=== PATIENT | female | born 1960 | race Caucasian/White ===

== ENCOUNTER → 2016-06-24 | Outpatient (CLI) | payer OTHER ==
[~2016-06-24] MED LIST: CYAN100020 PO; LEVO75TA5 PO
[2016-06-24 12:50] LABS: BASO % 0.6 %; BASO ABS # 0.02 K/uL (0-0.2); COMPLETE YES; HEMATOCRIT 35.6 % (37-47); IG% 0.3 %; LYMPH % 36.5 %; LYMPH ABS # 1.28 K/uL (1.2-3.4); MEAN CELL VOLUME 93.4 fL (80-100); MEAN CORPUSCULAR HEMOGLOBIN 33.1 pg (25-34); MEAN CORPUSCULAR HGB CONC 35.4 g/dl (32-36); MEAN PLATELET VOLUME 9.3 fL (7.4-10.4); MONO % 6.3 %; NEUT % 56.3 %; PLATELET COUNT 124 K/uL (130-400); RED BLOOD COUNT 3.81 M/uL (4.2-5.4); WHITE BLOOD COUNT 3.51 K/uL (4.8-10.8)
[2016-06-24 13:07] LABS: ALT/SGPT 26 U/L (12-78); BLOOD UREA NITROGEN 10 mg/dl (7-18); BUN/CREATININE RATIO 16.9 (10-20); CALCIUM 9.3 mg/dl (8.5-10.1); CARBON DIOXIDE 28 mmol/L (21-32); CHLORIDE 103 mmol/L (98-107); CHOLESTEROL 215 mg/dl (0-200); CREATININE 0.59 mg/dl (0.60-1.20); GLUCOSE 97 mg/dl (70-99); POTASSIUM 4.4 mmol/L (3.5-5.1); SODIUM 140 mmol/L (136-145)
[2016-06-24 13:17] LABS: ALB/GLOB RATIO 0.9 (0.9-2); ALKALINE PHOSPHATASE 119 U/L (45-117); AST/SGOT 13 U/L (15-37); CHOLESTEROL/HDL RATIO 4.2; HDL CHOLESTEROL 51 mg/dl; LDL CHOLESTEROL CALCULATED 133 mg/dl; TRIGLYCERIDES 155 mg/dl (0-150); VERY LOW DENSITY LIPOPROT CALC 31 mg/dl
== END | disposition home or self-care (01) ==
LOC: C.LABBFT 09:58
PROVIDERS: ATTEND Internal Medicine
DX: Z11.59 Encounter for screening for other viral diseases (principal); Z00.00 Encounter for general adult medical examination without abnormal findings; E03.9 Hypothyroidism, unspecified; C71.9 Malignant neoplasm of brain, unspecified; R53.83 Other fatigue; Z51.81 Encounter for therapeutic drug level monitoring

== ENCOUNTER → 2016-07-17 | Outpatient (CLI) | payer OTHER | END | disposition home or self-care (01) | LOC: C.PATHSPEC 17:23 | PROVIDERS: ATTEND Plastic Surgery | DX: L91.8 Other hypertrophic disorders of the skin (principal) ==

== ENCOUNTER → 2016-09-11 | Outpatient (CLI) | payer OTHER ==
--- NOTE | 2016-09-12 13:08 | EEG Procedure Note ---
EEG Procedure Note Date of Service September 11, 2016. Start / End Times Start Time: 2:51 PM End Time: 3:14 PM Referring Physician Claudia Gutierrez History This is a 56-year-old female with a history of seizures and brain surgery in 2000. EEG for further evaluation of seizures. Pertinent home medications: Dilantin Description This is a 21 electrode EEG with a single channel dedicated to limited EKG. The electrodes were placed in accordance with the International 10-20 system. At the start of the recording the patient was in an awake state. Background was well organized and composed of mixed alpha and beta frequencies with continuous right hemispheric theta slowing maximal in the right frontotemporal area. There was a symmetric well-formed moderate amplitude 9-10 Hz posterior dominant rhythm that was reactive to eye opening and closure. Hyperventilation was not done. Intermittent photic stimulation at various frequencies produced no abnormalities. Sleep was indicated by vertex waves and symmetric sleep spindles. Interpretation This is an abnormal routine EEG secondary to continuous right hemispheric slowing maximal in the right temporal area. There was no electrographic seizures or epileptiform discharges. Clinical Correlation This EEG indicates a structural or functional cerebral dysfunction in the right hemisphere.
== END | disposition home or self-care (01) ==
LOC: C.NEUR 14:20
PROVIDERS: ATTEND Psychiatry & Neurology Neurology
DX: R56.9 Unspecified convulsions (principal)

== ENCOUNTER → 2016-10-02 | Outpatient (CLI) | payer OTHER | END | disposition home or self-care (01) | LOC: C.LABBFT 11:40 | PROVIDERS: ATTEND Psychiatry & Neurology Neurology | DX: R41.3 Other amnesia (principal); R26.89 Other abnormalities of gait and mobility ==

== ENCOUNTER → 2016-12-01 | Outpatient (CLI) | payer OTHER ==
--- NOTE | 2016-12-04 17:27 | EEG Procedure Note ---
EEG Procedure Note Date of Service Dec 01, 2016. Start / End Times Start Time: 1:06 PM End Time: 1:26 PM Referring Physician Claudia Gutierrez History This is a 56-year-old female with history of right temporal lobe glioma removal. EEG for further management of possible seizures and seizure medication management. Description This is a 21 electrode EEG with a single channel dedicated to limited EKG. The electrodes were placed in accordance with the International 10-20 system. At the start of the recording the patient was in an awake state. Background was well organized and composed of mixed alpha and beta frequencies. There was continuous mild slowing over the right hemisphere. There was a symmetric well- formed moderate amplitude 9-10 Hz posterior dominant rhythm that was reactive to eye opening and closure. Hyperventilation was not done. Intermittent photic stimulation at various frequencies produced no abnormalities. Drowsiness was indicated by loss of muscle artifact and slowing of the background rhythm. There was no sleep transients. Interpretation This is an abnormal routine EEG secondary to mild continuous slowing of the right hemisphere. There was no electrographic seizures or epileptiform discharges. Clinical Correlation This EEG indicates a structural or functional cerebral dysfunction and the right hemisphere. Would be consistent with the patient's known history of right temporal lobe glioma resection.
== END | disposition home or self-care (01) ==
LOC: C.NEUR 12:47
PROVIDERS: ATTEND Psychiatry & Neurology Neurology
DX: R56.9 Unspecified convulsions (principal)

== ENCOUNTER → 2017-02-10 | Day surgery (SDC) | payer OTHER ==
[2017-01-29 13:29] VITALS: BMI 42.0
[~2017-02-10] VITALS: Ht 152.4 cm; Wt 97.3 kg
[~2017-02-10] MED LIST changes: +PROPOFOL IV EMULSION 10 MG/ML 20 ML VIAL IV ONE
[2017-02-10 09:25] VITALS: Ht 152.4 cm; Wt 97.3 kg
--- NOTE | 2017-02-10 09:32 | Endo History and Physical ---
History & Physical Date of Service: Feb 10, 2017. Chief Complaint: Screening Referring Physician: Aleshia Morton History of Present Illness 56 yo CF who presents for screening colonoscopy. Past Surgical History Hx Cardiac Surgery: No Hx Internal Defibrillator: No Hx Pacemaker: No Hx Abdominal Surgery: Yes ( C SECTION) Hx of Implantable Prosthesis: No Hx Post-Op Nausea and Vomiting: No Hx Cancer Surgery: No Hx Thoracic Surgery: No Hx Orthopedic: No Hx Urinary Tract Surgery: No Family History None Social History Smoking Status: Former Smoker Hx Substance Use: No Hx Alcohol Use: Yes (OCC SOCIAL) Allergies Coded Allergies: Sulfa Antibiotics (Verified Allergy, Intermediate, ITCHING, BURNING, ) Aspirin (Verified Allergy, Unknown, TO AVOID -HX BRAIN TUMOR NOT TO TAKE, 01/29/17) Current Medications Reported Home Medications Medications Dose Route/Sig Max Daily Dose Days Date Category Levothyroxine Sodium 75 Mcg Tab 1 Tab PO QAM 90 01/29/17 Reported Vitamin B12 (Cyanocobalamin) 1,000 Mcg Tab 1,000 Mcg PO QAM 01/29/17 Reported Vital Signs Weight (Kilograms): 97.27 Height (Feet): 5 Height (Inches): 0 Physical Exam General Appearance: WD/WN, no apparent distress Respiratory/Chest: Auscultation: breath sounds normal Cardiovascular: Heart Auscultation: RRR Abdomen: Bowel Sounds: normal Inspection & Palpation: soft, non-distended, no tenderness, guarding & rebound Assessment and Plan Assessment: 56 yo CF who presents for screening colonoscopy. Plan: Proceed with colonoscopy.
--- NOTE | 2017-02-10 10:31 | GI REPORT ---
Procedure Date: 02/10/2017 10:08 AM Procedure: Colonoscopy Indications: Screening for colorectal malignant neoplasm Medicines: Monitored Anesthesia Care Complications: No immediate complications. Estimated Blood Loss: Estimated blood loss: none. Procedure: Pre-Anesthesia Assessment: - Prior to the procedure, a History and Physical was performed, and patient medications and allergies were reviewed. The patient's tolerance of previous anesthesia was also reviewed. The risks and benefits of the procedure and the sedation options and risks were discussed with the patient. All questions were answered, and informed consent was obtained. Prior Anticoagulants: The patient has taken no previous anticoagulant or antiplatelet agents. ASA Grade Assessment: III - A patient with severe systemic disease. After reviewing the risks and benefits, the patient was deemed in satisfactory condition to undergo the procedure. After I obtained informed consent, the scope was passed under direct vision. Throughout the procedure, the patient's blood pressure, pulse, and oxygen saturations were monitored continuously. The scope was introduced through the anus and advanced to the terminal ileum. The colonoscopy was performed without difficulty. The patient tolerated the procedure well. The quality of the bowel preparation was good. The terminal ileum, the appendiceal orifice and the rectum were photographed. Findings: Non-bleeding internal hemorrhoids were found during retroflexion. The hemorrhoids were small. Impression: - Non-bleeding internal hemorrhoids. - No specimens collected. Recommendation: - Resume previous diet. - Continue present medications. - Repeat colonoscopy in 10 years for surveillance. - Return to primary care physician as previously scheduled. Fredo Masters DO 02/10/2017 10:30:46 AM This report has been signed electronically. Note Initiated On: 02/10/2017 10:08 AM I attest to the content of the Intraoperative Record and orders documented therein, exceptions below
--- NOTE | 2017-02-10 10:31 | Discharge Instructions ---
Endoscopy Patient Instructions Date / Procedure(s) Performed Feb 10, 2017. Colonoscopy Allergy Information Coded Allergies: Sulfa Antibiotics (Verified Allergy, Intermediate, ITCHING, BURNING, ) Aspirin (Verified Allergy, Unknown, TO AVOID -HX BRAIN TUMOR NOT TO TAKE, 01/29/17) Discharge Date / Findings Feb 10, 2017. Internal hemorrhoids Medication Instructions OK to resume all medications today as prescribed Reported Home Medications Medications Dose Route/Sig Max Daily Dose Days Date Category Levothyroxine Sodium 75 Mcg Tab 1 Tab PO QAM 90 01/29/17 Reported Vitamin B12 (Cyanocobalamin) 1,000 Mcg Tab 1,000 Mcg PO QAM 01/29/17 Reported Provider Instructions Activity Restrictions - No exercising or heavy lifting for 24 hours. - Do not drink alcohol the day of the procedure. - Do not drive a car or operate machinery until the day after the procedure. - Do not make any important decisions or sign important papers in 24 hours after the procedure. Following Day: - Return to full activity which may include returning to work/school. Diet Start your diet with liquids and light foods (jello, soup, juice, toast). Then eat your usual diet if not nauseated. Treatment For Common After Affects For mild abdominal pain, bloating, or excessive gas: - Rest - Eat lightly - Lie on right side Follow-Up Information Follow-up with DR. ALEX MAZARIEGOS as scheduled Anesthesia Information What You Should Know You have had a procedure that required some medicine to reduce anxiety and discomfort. This treatment is called moderate sedation. After receiving the treatment, you may be sleepy, but you will be able to breathe on your own. The effects of the treatment may last for several hours. Follow these instructions along with Activity/Diet recommendations noted above: * Do NOT do anything where dizziness or clumsiness would be dangerous. * Rest quietly at home today, then you can be up and about tomorrow. * Have a responsible person stay with you the rest of today. * You may have had an I.V. today. If so, you may take the dressing off later today. Recommendations Call your doctor if: * Trouble breathing * Continuous vomiting for more than 24 hours * Temperature above 101 degrees * Severe abdominal pain or bloating * Pain not relieved by pain medicine ordered * There is increased drainage or redness from any incision * A large amount of rectal bleeding greater than 2-3 tablespoons. (If you had a polyp/s removed or have hemorrhoids, a small amount of blood - from the rectum is to be expected.) * You have any unanswered questions or concerns. IN THE EVENT OF A SERIOUS EMERGENCY, GO TO THE NEAREST EMERGENCY ROOM Your discharge instructions were prepared by provider Fredo Masters. Patient Instructions Signature Page Ashley Chanel Patient (or Guardian) Signature/Date: I have read and understand the instructions given to me by my caregivers. Caregiver/RN/Doctor Signature/Date: The above-named patient and/or guardian has received patient instructions on this date. + Original Patient Signature Page (only) stays with chart. Please make copy for patient.
[2017-02-10 10:59] VITALS: BP 133/89; PULSE 67; O2SAT 100
--- NOTE | 2017-02-10 11:30 | Anesthesiology Progress Note ---
Anesthesia Post Op Note Date & Time Feb 10, 2017 at 11:30 Vital Signs Pain Intensity: 0 Vital Signs Past 12 Hours Date Time Temp Pulse Resp B/P (MAP) Pulse Ox O2 Delivery O2 Flow Rate FiO2 02/10/17 10:59 67 18 133/89 (104) 100 Room Air 02/10/17 10:46 66 18 119/70 (86) 100 Room Air 02/10/17 10:31 36.2 68 18 108/59 (75) 96 Room Air 02/10/17 09:36 36.6 73 18 117/72 (87) 98 Room Air Notes Mental Status: alert / awake / arousable, participated in evaluation Pt Amnestic to Procedure: Yes Nausea / Vomiting: adequately controlled Pain: adequately controlled Airway Patency, RR, SpO2: stable & adequate BP & HR: stable & adequate Hydration State: stable & adequate Anesthetic Complications: no major complications apparent
== END | disposition home or self-care (01) ==
LOC: C.GI 09:03
PROVIDERS: ATTEND Internal Medicine
DX: Z12.11 Encounter for screening for malignant neoplasm of colon (principal); K64.8 Other hemorrhoids; Z88.2 Allergy status to sulfonamides; Z87.891 Personal history of nicotine dependence; Z68.41 Body mass index [BMI] 40.0-44.9, adult; E66.9 Obesity, unspecified

== ENCOUNTER 2020-09-17 10:13 | Observation (INO) ==
[2020-09-17 10:46] LABS: Hematocrit (blood only) 41.9 % (37-47); Hemoglobin 14.5 g/dL (12.0-16.0); Mean Corpuscular Hemoglobin 32.5 pg (25-34); Mean Corpuscular Hgb Conc 34.6 g/dL (32-36); Mean Corpuscular Volume 93.9 fL (80-100); Mean Platelet Volume 8.9 fL (7.4-10.4); Platelet Count 162 K/uL (130-400); RDW Coefficient of Variation 12.9 % (11.5-14.5); RDW Standard Deviation 44.4 fL (36.4-46.3); Red Blood Count 4.46 M/uL (4.2-5.4); White Blood Count 4.04 K/uL (4.8-10.8)
[2020-09-17 10:55] LABS: Prothrombin Time 10.5 Seconds (9.0-12.0)
--- NOTE | 2020-09-17 10:55 | Emergency Department Note ---
Impression & Plan Lacunar infarction, Cerebrovascular accident, Leukopenia ED Provider Note NAME: JIM MAGAÑA AGE: 60 SEX: F : 1960 ARRIVES VIA: Walk-In INFORMANT: Patient ED PROVIDER(S): Herman Newby DO CHIEF COMPLAINT: Right-sided facial numbness, slurred speech, right hand weakness numbness HPI: Patient is a 60-year-old female who presents to the ER for symptoms that started this past Thursday. Started with trouble talking, right facial numbness, and right hand numbness and weakness. She notes that it has not changed since then. She has been talking to her and recommend that she come in. She denies any headache or change in vision. No chest pain or shortness of breath. No nausea, vomiting, or diarrhea. No dysuria, urgency, or frequency. No other exacerbating or remitting factors. ROS: See above HPI for pertinent positives & negatives. A total of 10 systems reviewed and were otherwise negative. PAST MEDICAL HISTORY:See Below PAST SURGICAL HISTORY:See Below FAMILY HISTORY:See Below SOCIAL HISTORY:See Below HOME MEDICATIONS:See Below ALLERGIES:See Below VITALS:See Below PHYSICAL EXAMINATION: GENERAL: Sitting up in bed, alert, well appearing, well nourished, no distress, non-toxic EYE EXAM: normal conjunctiva. PERRL and EOM's intact. OROPHARYNX: no exudate, no erythema, lips, buccal mucosa, and tongue normal and mucous membranes are moist NECK: supple, no nuchal rigidity, no adenopathy, non-tender LUNGS: Clear to auscultation. Normal chest wall mechanics HEART: no murmurs, S1 normal and S2 normal ABDOMEN: abdomen soft, non-tender, normo-active bowel sounds, no masses, no rebound or guarding. UPPER EXTREMITIES: upper extremities are grossly normal. LOWER EXTREMITIES: No pitting edema. NEURO EXAM: Normal sensorium, cranial nerves II-XII intact, slightly slurred speech, mild weakness with grasp as well as flexion extension of the right upper extremity. No weakness on the left upper extremity., no weakness of legs. No drift. Finger to nose intact. Gross sensation intact. MEDICAL DECISION MAKING: Patient is a 60-year-old female who presents the ER for right facial numbness, slurred speech and right hand numbness and weakness. Everything started Thursday. IV was established blood work was obtained. Labs show mild leukopenia 4000. No significant anemia. INR unremarkable. BMP along with LFTs bilirubin was unremarkable. Covid was negative. CT head shows A new lacunar infarct as of July this month. Chest x-ray was unremarkable. She was given aspirin and IV fluids. She was discussed with hospitalist admitted for further work-up of her stroke. Triage Nursing notes reviewed. Limited review of prior medical records performed Vital Signs: reviewed and remarkable for HTN Differential diagnosis: Differential Diagnosis includes but is not limited to ischemic Stroke, hemorrhagic stroke, bells palsy, mass, neoplasm, migraine headache, seizure, subarachnoid hemorrhage, TIA, and transient global amnesia. ER treatment provided: See below Diagnostics interpreted by me: ECG: Sinus rhythm at 65 Normal axis No PVCs QTC 422 Cardiac Monitoring: An order was placed for continuous cardiac monitoring. The monitor shows a rate of 62 with sinus rhythm. Laboratory studies: As stated above and show below. Imaging studies: CT head shows new lacunar infarct as of July Portable AP upright 1 view the chest was unremarkable Consultation(s): Discussed with the hospitalist for further evaluation Procedures: none Critical Care: None Past Med/Surg History Medical History Allergic rhinitis Chronic cough Hx of brain cancer Hypothyroidism Recurrent herpes labialis Seizure disorder Tinea corporis Surgical History Hx of brain surgery Hx of section Hx of colonoscopy Hx of tubal ligation Family History Grandmother Family history of diabetes mellitus Father Myocardial infarction Other No significant family history Denies family history of Ovarian cancer Prostate cancer Breast cancer Colorectal cancer Social History Smoking Status: Former smoker Second Hand Exposure: No; Hx Alcohol Use: No Hx Substance Use: No Preferred Language: [place] Communication Ability: Effective Screed Operator Required: No Beliefs That Will Affect Care: None marital status: Current Living Situation: Spouse current occupational status: employed 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 Feels Safe at Home: Yes Dental Care, Regularly: No Physical Activity Frequency: Does not Exercise Assistive Devices: Denture - Upper and Glasses Allergies Allergies Allergy/AdvReac Type Severity Reaction Status Date / Time Sulfa (Sulfonamide Allergy Intermediate ITCHING, Verified 09/17/20 11:56 Antibiotics) BURNING aspirin Allergy Unknown TO AVOID Verified 09/17/20 11:56 -HX BRAIN TUMOR NOT TO TAKE Home Meds Home Medications Medication Instructions Recorded Confirmed acyclovir 400 mg tablet 400 mg PO TID PRN tab 05/29/20 09/17/20 Previous Rx's Medication Instructions Recorded fluticasone furoate 27.5 1 sprays INTNAS DAILY #9.1 ml 02/16/19 mcg/actuation nasal spray,suspension chlorpheniramine maleate 4 mg 4 mg PO Q12H #60 tab 03/16/20 tablet benzonatate 100 mg capsule 100 mg PO TID PRN #30 cap 04/18/20 montelukast 10 mg tablet 10 mg PO DAILY #30 tab 05/10/20 levetiracetam 500 mg tablet 500 mg PO BID #60 tab 05/14/20 levothyroxine 25 mcg tablet 25 mcg PO DAILY #30 tab 05/29/20 Results & Data (ED) Vital Signs Vital Signs - 24 hr 09/17/20 10:17 09/17/20 11:00 09/17/20 11:03 Temperature 36.7 C Temperature Source Temporal Artery Scan Pulse Rate 80 63 61 Pulse Rate from SpO2 Sensor 63 62 Pulse Rhythm Regular Pulse Strength Normal Respiratory Rate 20 17 15 Respiratory Effort / Characteristics Non-Labored Spontaneous Respiratory Depth Normal Respiratory Pattern Regular Blood Pressure 165/83 H 136/77 Blood Pressure Mean 110 96 Blood Pressure Position Sitting Pulse Oximetry 96 99 98 Oxygen Delivery Method Room Air Sepsis Recent Fever Within 48 Hours No Sepsis New/Unexplained Change in Mental Status No Sepsis Action Taken by Nursing No Action Required 09/17/20 11:06 09/17/20 11:10 09/17/20 11:20 Temperature Temperature Source Pulse Rate 68 66 73 Pulse Rate from SpO2 Sensor 64 76 Pulse Rhythm Regular Pulse Strength Respiratory Rate 18 16 Respiratory Effort / Characteristics Respiratory Depth Respiratory Pattern Blood Pressure Blood Pressure Mean Blood Pressure Position Pulse Oximetry 98 98 95 Oxygen Delivery Method Room Air Sepsis Recent Fever Within 48 Hours Sepsis New/Unexplained Change in Mental Status Sepsis Action Taken by Nursing 09/17/20 11:30 09/17/20 11:31 09/17/20 11:40 Temperature Temperature Source Pulse Rate 73 73 67 Pulse Rate from SpO2 Sensor 73 72 64 Pulse Rhythm Pulse Strength Respiratory Rate 13 19 20 Respiratory Effort / Characteristics Respiratory Depth Respiratory Pattern Blood Pressure 132/96 Blood Pressure Mean 108 Blood Pressure Position Pulse Oximetry 98 97 99 Oxygen Delivery Method Sepsis Recent Fever Within 48 Hours Sepsis New/Unexplained Change in Mental Status Sepsis Action Taken by Nursing 09/17/20 11:50 09/17/20 12:00 09/17/20 12:01 Temperature Temperature Source Pulse Rate 63 63 59 L Pulse Rate from SpO2 Sensor 62 62 59 L Pulse Rhythm Pulse Strength Respiratory Rate 23 17 12 Respiratory Effort / Characteristics Respiratory Depth Respiratory Pattern Blood Pressure 128/75 Blood Pressure Mean 92 Blood Pressure Position Pulse Oximetry 99 100 100 Oxygen Delivery Method Sepsis Recent Fever Within 48 Hours Sepsis New/Unexplained Change in Mental Status Sepsis Action Taken by Nursing 09/17/20 12:10 09/17/20 12:20 09/17/20 12:30 Temperature Temperature Source Pulse Rate 59 L 54 L 61 Pulse Rate from SpO2 Sensor 60 53 L 64 Pulse Rhythm Pulse Strength Respiratory Rate 16 18 18 Respiratory Effort / Characteristics Respiratory Depth Respiratory Pattern Blood Pressure 127/78 Blood Pressure Mean 94 Blood Pressure Position Pulse Oximetry 100 98 98 Oxygen Delivery Method Sepsis Recent Fever Within 48 Hours Sepsis New/Unexplained Change in Mental Status Sepsis Action Taken by Nursing 09/17/20 12:31 09/17/20 12:40 09/17/20 12:57 Temperature Temperature Source Pulse Rate 57 L 58 L 76 Pulse Rate from SpO2 Sensor 55 L 60 Pulse Rhythm Pulse Strength Respiratory Rate 15 18 16 Respiratory Effort / Characteristics Respiratory Depth Respiratory Pattern Blood Pressure Blood Pressure Mean Blood Pressure Position Pulse Oximetry 100 100 Oxygen Delivery Method Sepsis Recent Fever Within 48 Hours Sepsis New/Unexplained Change in Mental Status Sepsis Action Taken by Nursing 09/17/20 13:00 09/17/20 13:01 09/17/20 13:10 Temperature Temperature Source Pulse Rate 58 L 52 L 53 L Pulse Rate from SpO2 Sensor 56 L 53 L 52 L Pulse Rhythm Pulse Strength Respiratory Rate 13 16 18 Respiratory Effort / Characteristics Respiratory Depth Respiratory Pattern Blood Pressure 155/80 H Blood Pressure Mean 105 Blood Pressure Position Pulse Oximetry 97 100 100 Oxygen Delivery Method Sepsis Recent Fever Within 48 Hours Sepsis New/Unexplained Change in Mental Status Sepsis Action Taken by Nursing 09/17/20 13:20 09/17/20 13:30 09/17/20 13:31 Temperature Temperature Source Pulse Rate 57 L 59 L 83 Pulse Rate from SpO2 Sensor 55 L 62 85 Pulse Rhythm Pulse Strength Respiratory Rate 13 13 22 Respiratory Effort / Characteristics Respiratory Depth Respiratory Pattern Blood Pressure 151/83 H Blood Pressure Mean 105 Blood Pressure Position Pulse Oximetry 100 99 100 Oxygen Delivery Method Sepsis Recent Fever Within 48 Hours Sepsis New/Unexplained Change in Mental Status Sepsis Action Taken by Nursing Laboratory Data Result diagrams: 09/17/20 10:33 09/17/20 10:33 Lab Results 09/17/20 09/17/20 09/17/20 Range/Units 10:33 10:33 10:33 WBC 4.04 L (4.8-10.8) K/uL RBC 4.46 (4.2-5.4) M/uL Hgb 14.5 (12.0-16.0) g/dL POC Hgb (12.0-16.0) g/dl Hct 41.9 (37-47) % POC Hct (37-47) % MCV 93.9 (80-100) fL MCH 32.5 (25-34) pg MCHC 34.6 (32-36) g/dL RDW Std Deviation 44.4 (36.4-46.3) fL RDW Coeff of Juliet 12.9 (11.5-14.5) % Plt Count 162 (130-400) K/uL MPV 8.9 (7.4-10.4) fL PT 10.5 (9.0-12.0) Seconds INR 1.0 (0.9-1.1) APTT 26.0 (21.0-31.0) Seconds PTT Ratio 1.0 POC Sodium (135-144) mmol/L Sodium 137 (136-145) mmol/L POC Potassium (3.3-5.0) mmol/L Potassium 4.1 (3.5-5.1) mmol/L POC Chloride (101-112) mmol/L Chloride 102 (98-107) mmol/L Carbon Dioxide 29 (21-32) mmol/L POC Total CO2 (24-31) mmol/L Anion Gap 6.0 (3-11) POC Anion Gap (16-25) mmol/L POC BUN (7-18) mg/dl BUN 10 (7-18) mg/dl Creatinine 0.80 (0.6-1.2) mg/dl POC Creatinine (0.6-1.3) mg/dl Est Cr Clr Drug Dosing 75.3 ml/min Est GFR ( Amer) 91.6 Est GFR (Non-Af Amer) 79.0 BUN/Creatinine Ratio 11.9 (10-20) Glucose 131 H (70-99) mg/dl POC Glucose (other) (70-99) mg/dl Calcium 9.7 (8.5-10.1) mg/dl POC Ioniz Calcium Silas (1.12-1.32) mmol/l Magnesium 2.2 (1.8-2.4) mg/dl Total Bilirubin 0.7 (0.2-1) mg/dl AST 20 (15-37) U/L ALT 46 (12-78) U/L Alkaline Phosphatase 82 (45-117) U/L Total Protein 7.8 (6.4-8.2) gm/dl Albumin 3.8 (3.4-5.0) gm/dl Globulin 4.0 (2.5-4.0) gm/dl Albumin/Globulin Ratio 1.0 (0.9-2) COVID-19 Eval Order SARS-CoV-2 (PCR) (Negative) Influenza Type A (PCR) (Neg) Influenza Type B (PCR) (Neg) RSV (RT-PCR) (Neg) 09/17/20 09/17/20 09/17/20 Range/Units 11:03 11:16 11:16 WBC (4.8-10.8) K/uL RBC (4.2-5.4) M/uL Hgb (12.0-16.0) g/dL POC Hgb 13.3 (12.0-16.0) g/dl Hct (37-47) % POC Hct 39 (37-47) % MCV (80-100) fL MCH (25-34) pg MCHC (32-36) g/dL RDW Std Deviation (36.4-46.3) fL RDW Coeff of Juliet (11.5-14.5) % Plt Count (130-400) K/uL MPV (7.4-10.4) fL PT (9.0-12.0) Seconds INR (0.9-1.1) APTT (21.0-31.0) Seconds PTT Ratio POC Sodium 138 (135-144) mmol/L Sodium (136-145) mmol/L POC Potassium 4.2 (3.3-5.0) mmol/L Potassium (3.5-5.1) mmol/L POC Chloride 98 L (101-112) mmol/L Chloride (98-107) mmol/L Carbon Dioxide (21-32) mmol/L POC Total CO2 30 (24-31) mmol/L Anion Gap (3-11) POC Anion Gap 15.0 L (16-25) mmol/L POC BUN 9 (7-18) mg/dl BUN (7-18) mg/dl Creatinine (0.6-1.2) mg/dl POC Creatinine 0.7 (0.6-1.3) mg/dl Est Cr Clr Drug Dosing ml/min Est GFR ( Amer) Est GFR (Non-Af Amer) BUN/Creatinine Ratio (10-20) Glucose (70-99) mg/dl POC Glucose (other) 129 H (70-99) mg/dl Calcium (8.5-10.1) mg/dl POC Ioniz Calcium Silas 1.27 (1.12-1.32) mmol/l Magnesium (1.8-2.4) mg/dl Total Bilirubin (0.2-1) mg/dl AST (15-37) U/L ALT (12-78) U/L Alkaline Phosphatase (45-117) U/L Total Protein (6.4-8.2) gm/dl Albumin (3.4-5.0) gm/dl Globulin (2.5-4.0) gm/dl Albumin/Globulin Ratio (0.9-2) COVID-19 Eval Order [facility]FluRsv at [facility] SARS-CoV-2 (PCR) NEGATIVE (Negative) Influenza Type A (PCR) Negative (Neg) Influenza Type B (PCR) Negative (Neg) RSV (RT-PCR) Negative (Neg) Administered Medications Discontinued Medications Sodium Chloride (Nss 1000ml) 1,000 mls @ 999 mls/hr IV .[id number] ONE Stop: 09/17/20 12:31 Last Infusion: 09/17/20 13:13 Dose: 999 mls/hr Documented by: [id number] Admin: 09/17/20 12:12 Dose: 999 mls/hr Documented by: [id number] Imaging Data Radiologist's Impression: Chest X-Ray 09/17/20 10:23 XR chest 1V portable CLINICAL HISTORY: stroke alert COMPARISON STUDY: No previous studies for comparison. FINDINGS: The cardiac and mediastinal contours are normal. There is no evidence of focal pulmonary consolidation. There is no evidence of failure. No pleural effusions are visualized.[A right basilar opacity overlying hemidiaphragm likely represents a summation. IMPRESSION: No active disease in the chest. ACT 112: Negative or not required by law. Electronically signed by: Ramses Silva M.D. 09/17/2020 10:[address] 09/17/20 10:23 CT SCAN OF THE BRAIN WITHOUT IV CONTRAST CLINICAL HISTORY: Strokelike symptoms. COMPARISON STUDY: CT of the brain dated 01/21/2018. MRI of the brain dated 07/14/2019. TECHNIQUE: Unenhanced axial CT scan of the brain is performed from the vertex to the skull base. A dose lowering technique was utilized adhering to the principles of ALARA. CT DOSE: 537.48 mGy.cm FINDINGS: Brain parenchyma: Right temporal encephalomalacia is consistent with a site of previous mass resection. There are age-related involutional changes noting mild subcortical and periventricular microangiopathic change. There is a 9 mm chronic appearing lacunar infarct in the left thalamus which is new from 020. There is no hemorrhage, mass effect, or evidence of acute territorial ischemia by CT criteria. Humphries-white matter differentiation is preserved. No extra-axial fluid collection is seen. Calcifications in the gary are unchanged from previous. Ventricles, sulci, cisterns: Prominent secondary to involutional change. Intracranial vasculature: There is atherosclerotic calcification of the cavernous carotid and vertebral arteries. Calvarium: There is postoperative change from previous right temporal craniotomy. No destructive calvarial lesion is seen. Heterogeneous change in the calvarium at the skull base may be related to previous radiation treatment. Sinuses and mastoids: The visualized paranasal sinuses are clear. There are bilateral mastoid effusions, right larger than left. Orbits: The bony orbits are grossly intact. IMPRESSION: 1. There is no hemorrhage, mass effect, or evidence of acute territorial ischemia by CT criteria. 2. Postoperative change and right temporal encephalomalacia as above. This is similar to previous. 3. A 9 mm chronic appearing lacunar infarct in the left thalamus is new from 07/14/2019. ACT 112: Negative or not required by law. Electronically signed by: Leonides Partida M.D. 09/17/2020 10:55 AM Discharge Plan Visit Data Chief Complaint: TIA Symptoms Stated Complaint: RIGHT HAND NUMB ED Provider: Herman Newby Discharge Problem: Lacunar infarction, Cerebrovascular accident, Leukopenia Forms Stand Alone Forms: My [facility] Prescriptions Prescriptions: No Action chlorpheniramine maleate [Allergy Relief(chlorpheniramn)] 4 mg tablet 4 mg PO Q12H Qty: 60 RF: 5 benzonatate [Tessalon Perles] 100 mg capsule 100 mg PO TID PRN (Reason: cough) Qty: 30 RF: 1 levetiracetam 500 mg tablet 500 mg PO BID Qty: 60 RF: 5 montelukast 10 mg tablet 10 mg PO DAILY Qty: 30 RF: 11 acyclovir 400 mg tablet 400 mg PO TID PRN (Reason: Cold Sores) RF: 0 levothyroxine 25 mcg tablet 25 mcg PO DAILY Qty: 30 RF: 5 fluticasone furoate 27.5 mcg/actuation spray,suspension 1 sprays INTNAS DAILY Qty: 9.1 RF: 5 Discharge Problem: Cerebrovascular accident Qualifiers: CVA mechanism: unspecified Qualified Code(s): I63.9 - Cerebral infarction, unspecified Leukopenia Qualifiers: Leukopenia type: unspecified Qualified Code(s): D72.819 - Decreased white blood cell count, unspecified
--- NOTE | 2020-09-17 10:57 | CT Scan Report ---
CT SCAN OF THE BRAIN WITHOUT IV CONTRAST CLINICAL HISTORY: Strokelike symptoms. COMPARISON STUDY: CT of the brain dated 01/21/2018. MRI of the brain dated 07/14/2019. TECHNIQUE: Unenhanced axial CT scan of the brain is performed from the vertex to the skull base. A do se lowering technique was utilized adhering to the principles of ALARA. CT DOSE: 537.48 mGy.cm FINDINGS: Brain parenchyma: Right temporal encephalomalacia is consistent with a site of previous mass resectio n. There are age-related involutional changes noting mild subcortical and periventricular microangio pathic change. There is a 9 mm chronic appearing lacunar infarct in the left thalamus which is new fr om 07/14/2019. There is no hemorrhage, mass effect, or evidence of acute territorial ischemia by CT cri teria. Humphries-white matter differentiation is preserved. No extra-axial fluid collection is seen. Calci fications in the gary are unchanged from previous. Ventricles, sulci, cisterns: Prominent secondary to involutional change. Intracranial vasculature: There is atherosclerotic calcification of the cavernous carotid and vertebr al arteries. Calvarium: There is postoperative change from previous right temporal craniotomy. No destructive calv arial lesion is seen. Heterogeneous change in the calvarium at the skull base may be related to previ ous radiation treatment. Sinuses and mastoids: The visualized paranasal sinuses are clear. There are bilateral mastoid effusio ns, right larger than left. Orbits: The bony orbits are grossly intact. IMPRESSION: 1. There is no hemorrhage, mass effect, or evidence of acute territorial ischemia by CT criteria. 2. Postoperative change and right temporal encephalomalacia as above. This is similar to previous. 3. A 9 mm chronic appearing lacunar infarct in the left thalamus is new from 07/14/2019. ACT 112: Negative or not required by law. Electronically signed by: Leonides Partida M.D. 09/17/2020 10:55 AM
--- NOTE | 2020-09-17 10:59 | XRay Report ---
XR chest 1V portable CLINICAL HISTORY: stroke alert COMPARISON STUDY: No previous studies for comparison. FINDINGS: The cardiac and mediastinal contours are normal. There is no evidence of focal pulmonary co nsolidation. There is no evidence of failure. No pleural effusions are visualized.[A right basilar op acity overlying hemidiaphragm likely represents a summation. IMPRESSION: No active disease in the chest. ACT 112: Negative or not required by law. Electronically signed by: Ramses Silva M.D. 09/17/2020 10:57 AM
[2020-09-17 11:04] LABS: Albumin Level 3.8 gm/dl (3.4-5.0); BUN Creatinine Ratio 11.9 (10-20); Calcium 9.7 mg/dl (8.5-10.1); Creatinine Clr Calc Pharmacy 75.3 ml/min; Est GFR (African American) 91.6; Magnesium 2.2 mg/dl (1.8-2.4); Potassium 4.1 mmol/L (3.5-5.1)
[2020-09-17 11:07] LABS: Bilirubin,Total 0.7 mg/dl (0.2-1); Total Protein 7.8 gm/dl (6.4-8.2)
[2020-09-17 11:16] LABS: iSTAT Creatinine 0.7 mg/dl (0.6-1.3); iSTAT Hemoglobin 13.3 g/dl (12.0-16.0); iSTAT Ionized Calcium 1.27 mmol/l (1.12-1.32); iSTAT Potassium 4.2 mmol/L (3.3-5.0)
[2020-09-17] MEDS ORDERED: HYDROmorphone INJ 1 MG/ML SYRINGE IV STA (11:31)
[2020-09-17] MEDS ORDERED: SODIUM CHLORIDE 0.9% 1000ML 1,000 ML IV ONE (11:31)
--- NOTE | 2020-09-17 12:08 | History & Physical Report ---
Date of Service September 17, 2020 Assessment & Plan (1) Lacunar infarction: CT scan noting a small left lacunar infarct of indeterminate age Unclear if this is the current cause of her symptoms or if there is another acute infarct as well Placed in monitored observation Check CT perfusion studies of the head and neck Check MRI of the brain 2D echo ordered by emergency room We will hold aspirin, patient is stating allergy secondary to previous history of brain tumor resection Check fasting lipids, will start atorvastatin 20 mg daily until resulted PT/OT/speech therapy consultations I will ask neurology to evaluate for further recommendations (2) Seizure disorder: Patient is on Keppra chronically, will continue (3) Hx of brain cancer: Has been stable, will await imaging studies as noted above. Further recommendations per neurology (4) Hypothyroidism: Continue levothyroxine once cleared for speech History of Present Illness Primary Care Provider: Aleshia Morton MD This is a 60-year-old female with past mental history of seizure disorder, right temporal mass resection approximate 20 years ago that presents today complaining of right hand and face numbness. Patient is a decent historian, unaccompanied in the room. Patient tells me that she woke up Thursday morning, 2 days ago and noted right hand numbness. This involves her entire hand to the wrist. She did not notice any weakness. This was accompanied by right facial numbness which extended from the nose down to the chin and back through the cheek. Contralateral side was not affected. Her noted that she had trouble speaking, patient was unclear on this but seem to be more dysarthria than aphasia. Symptoms have not improved since initial presentation. Patient has not had any other neurological symptoms such as ataxia, weakness in any extremity, visual issues, or confusion. Patient did not seek medical attention until today when the symptoms did not resolve. At this time, patient is still complaining of persistent numbness. I did detect some mild dysarthria with speaking to her but she has no facial weakness or aphasic difficulties. She denies any other systemic symptoms such as fever, chills, nausea, vomiting, abdominal pain, chest pain, or shortness of breath. She also denies that she has had a seizure in many years and regularly follows with neurology. Allergies Allergy/AdvReac Type Severity Reaction Status Date / Time Sulfa (Sulfonamide Allergy Intermediate ITCHING, Verified 09/17/20 11:56 Antibiotics) BURNING aspirin Allergy Unknown TO AVOID Verified 09/17/20 11:56 -HX BRAIN TUMOR NOT TO TAKE Home Medications Medication Instructions Recorded Confirmed Type fluticasone furoate 27.5 1 sprays INTNAS DAILY #9.1 ml 02/16/19 09/17/20 Rx mcg/actuation nasal spray,suspension chlorpheniramine maleate 4 mg 4 mg PO Q12H #60 tab 03/16/20 09/17/20 Rx tablet benzonatate 100 mg capsule 100 mg PO TID PRN #30 cap 04/18/20 09/17/20 Rx montelukast 10 mg tablet 10 mg PO DAILY #30 tab 05/10/20 09/17/20 Rx levetiracetam 500 mg tablet 500 mg PO BID #60 tab 05/14/20 09/17/20 Rx acyclovir 400 mg tablet 400 mg PO TID PRN tab 05/29/20 09/17/20 History levothyroxine 25 mcg tablet 25 mcg PO DAILY #30 tab 05/29/20 09/17/20 Rx Past Med/Surg History Medical History Allergic rhinitis Chronic cough Hx of brain cancer Hypothyroidism Recurrent herpes labialis Seizure disorder Tinea corporis Surgical History Hx of brain surgery Hx of section Hx of colonoscopy Hx of tubal ligation Family History Grandmother Family history of diabetes mellitus Father Myocardial infarction Other No significant family history Denies family history of Ovarian cancer Prostate cancer Breast cancer Colorectal cancer Social History Smoking Status: Former smoker Second Hand Exposure: No; Hx Alcohol Use: No Hx Substance Use: No Preferred Language: Georgian Communication Ability: Effective Cable Spooler Required: No Beliefs That Will Affect Care: None marital status: Current Living Situation: Spouse current occupational status: employed 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 Other Information That Helps Us Care for You: No Feels Safe at Home: Yes Safety Concerns: Feels Safe At This Time Dental Care, Regularly: No Physical Activity Frequency: Does not Exercise Assistive Devices: Glasses Review of Systems Constitutional: no fever, no chills, no sweats, no body aches and no fatigue Ear, Nose, Mouth, Throat: as per Subjective / HPI Respiratory: no cough, no chest congestion, no change in sputum, no dyspnea and no dyspnea on exertion Cardiovascular: no chest pain, no chest pain at rest, no chest pain with activity, no radiating jaw, neck or arm pain and no dyspnea Gastrointestinal: no abdominal pain, no bloating, no nausea, no vomiting, no constipation and no diarrhea/loose stools Genitourinary: no dysuria, no difficulty urinating, no urinary frequency, no urinary hesitancy and no urinary urgency Musculoskeletal: no back pain, no neck pain, no radicular pain, no loss of height and no joint pain Neurologic: + tingling, + numbness and + abnormal speech; no gait abnormality, no unsteadiness, no localized weakness, no generalized weakness, no paralysis, no radiating pain, no tremor(s), no seizure-like activity, no dizziness, no syncope, no headache(s) and no behavioral changes Psychiatric: as per Subjective / HPI Physical Exam Constitutional: WD/WN, vitals as above + obese; no acute distress Eyes: PERRL, conjunctivae normal, anicteric sclerae Neck: trachea midline, no thyromegaly Respiratory: normal respiratory effort, lungs clear to auscultation Auscultation: lungs clear to auscultation bilaterally Cardiovascular: Rate/Rhythm: regular rate and regular rhythm Heart Sounds: normal S1 and normal S2 Vessels: no JVD and no carotid bruit Gastrointestinal (Abdomen): normal bowel sounds, soft, nontender, no hepatosplenomegaly Musculoskeletal: no cyanosis or clubbing, extremities motor strength 5/5 Neurologic: Subjective numbness of the right hand to the wrist. 5 out of 5 muscle strength, swimming pool servicer strength in bilateral upper extremities. Mild dysarthria noted, patient has no facial droop and cranial nerves II through XII appear to be intact Results & Data Results & Data ([facility]) Vital Signs (Past 12 Hours) Vital Signs Temp Pulse Resp BP Pulse Ox 09/17/20 11:06 68 18 98 09/17/20 11:03 61 15 98 09/17/20 11:00 63 17 136/77 99 09/17/20 10:17 36.7 C 80 20 165/83 H 96 PG Care Time/CCT Total # of Minutes Spent Total Time Spent with Patient: Total time spent is greater than 50% in coordination of care (as documented) at patient's floor/unit and/or counseling patient: Coding Level of Care Code 84797 OBS Care - Level 3 Diagnoses Lacunar infarction I63.81 Seizure disorder G40.909 Hx of brain cancer Z85.841 Hypothyroidism E03.9
[2020-09-17 12:23] LABS: Influenza A virus by PCR Negative (Neg); Influenza B virus by PCR Negative (Neg); RSV by PCR Negative (Neg); SARS CoV2 RNA(COVID-19) InHosp NEGATIVE (Negative)
[2020-09-17] MEDS ORDERED: PHARMACIST DISCHARGE MED REC CONSULT PRN (14:07)
[2020-09-17] MEDS ORDERED: LORazepam 0.5 MG/1 ML VIAL IV ONE (14:07)
[2020-09-17] MEDS ORDERED: ONDANSETRON INJ 2 MG/ML 2 ML VIAL IV PRN (14:07)
[2020-09-17] MEDS ORDERED: BENZONATATE 100 MG CAPSULE PO PRN (14:07)
[2020-09-17] MEDS ORDERED: OPTIRAY 350 500ml IV ONE (14:52)
--- NOTE | 2020-09-17 15:15 | CT Scan Report ---
CT angio neck with con CLINICAL HISTORY: CVA COMPARISON STUDY: No previous studies for comparison. TECHNIQUE: CT angiography was performed from the aortic arch to the skull base. MIP imaging was perfo rmed. The patient was scanned in a dynamic helical fashion during intravenous administration of 120 c c of Optiray. A dose lowering technique was utilized adhering to the principles of ALARA. CT DOSE: Technique: CT angiogram of the carotid and vertebral arteries was obtained using intravenous contrast and 3-D reconstruction. NASCET criteria was utilized. Findings: The right carotid revealed no evidence of aneurysm and no evidence of dissection. There is no evidenc e of hemodynamic significant stenosis. The left carotid revealed no evidence of hemodynamic significant stenosis. There is no evidence of an eurysm. There is no evidence of dissection. There are moderate atheromatous changes involving the distal right vertebral artery, without evidence of a hemodynamically significant stenosis. IMPRESSION: No evidence of hemodynamically significant carotid or vertebral artery stenosis. No evidence of disse ction. ACT 112: Negative or not required by law. Electronically signed by: Ramses Silva M.D. 09/17/2020 3:13 PM
--- NOTE | 2020-09-17 15:29 | CT Scan Report ---
CT angio head w con CLINICAL HISTORY: 60 years-old Female with CVA. Acute strokelike symptoms COMPARISON STUDY: Head CT of same day, brain MRI 07/14/2019. TECHNIQUE: Following the IV administration of 120 cc of Optiray, CT angiogram of the brain was perfor med from the skull base to the vertex. Images are reviewed in the axial, sagittal, and coronal planes . 3-D MIPS images are created and assessed. IV contrast was administered without complication. All me asurements were obtained according to NASCET criteria. A dose lowering technique was utilized adherin g to the principles of ALARA. CT DOSE: 855.54 mGycm FINDINGS: The imaged internal carotid arteries are patent with calcified plaque of the cavernous, clinoid and s upraclinoid segments. Calcified plaque at the right carotid terminus results in moderate luminal narr owing. The middle and anterior cerebral arteries are patent. Dominant left vertebral artery. Focal mo derate atherosclerotic plaque of the V4 segment left vertebral artery on image 36 causes moderate sagar nosis. The basilar and right posterior cerebral artery are patent. Focal area of high-grade stenosis involves the distal left posterior cerebral artery on image 111 series 3 with vessel cut off reconsti tution of flow distally. Cerebral venous sinuses are patent. No abnormal intracranial enhancement. Right temporal encephalomalacia with right calvarial craniotomy changes. Heterogeneous appearance of the skull base may be from posttreatment related changes. Chronic subcentimeter lacunar infarct of th e left thalamus. Moderate right mastoid effusion. Left mastoid air cells are clear. Metopic suture. N o acute fracture. IMPRESSION: 1. Focal area of high-grade stenosis versus occlusion with distal reconstitution of flow involves the distal aspect of the left posterior cerebral artery. 2. Atherosclerotic plaque of the V4 segment left vertebral artery results in moderate luminal narrowi ng. 3. Right temporal lobe encephalomalacia with chronic postoperative changes. ACT 112: Negative or not required by law. The above report was generated using voice recognition software. It may contain grammatical, syntax o r spelling errors. Electronically signed by: Radu Celestin M.D. 09/17/2020 3:28 PM
[2020-09-17] MEDS: SODIUM CHLORIDE 0.9% 1000ML 1,000 ML IV SCH (16:42)
[2020-09-17] MEDS: levETIRAcetam 500 MG TAB PO SCH (20:59)
[2020-09-17] MEDS ORDERED: LORazepam 2 MG/4 ML VIAL ONE (21:06)
[2020-09-18] MEDS ORDERED: NSS + 20MEQ KCL 20 MEQ/1,000 ML BAG IV SCH (03:30)
[2020-09-18] MEDS: SODIUM CHLORIDE 0.9% 1000ML 1,000 ML IV SCH (03:31)
[2020-09-18] MEDS ORDERED: LEVOTHYROXINE SODIUM 25 MCG TABLET PO SCH (06:30)
[2020-09-18 06:36] LABS: Basophils # (auto) 0.01 K/uL (0-0.2); Basophils % (auto) 0.3 %; Hemoglobin 12.5 g/dL (12.0-16.0); Lymphocytes % (auto) 34.9 %; Mean Corpuscular Hgb Conc 33.8 g/dL (32-36); Mean Corpuscular Volume 94.6 fL (80-100); Mean Platelet Volume 9.1 fL (7.4-10.4); Monocytes # (auto) 0.35 K/uL (0.11-0.59); Monocytes % (auto) 9.4 %; Neutrophils # (auto) 2.07 K/uL (1.4-6.5); Neutrophils % (auto) 55.4 %; Platelet Count 135 K/uL (130-400); RDW Coefficient of Variation 13.1 % (11.5-14.5); Red Blood Count 3.91 M/uL (4.2-5.4); White Blood Count 3.73 K/uL (4.8-10.8)
--- NOTE | 2020-09-18 07:03 | Magnetic Resonance Report ---
MRI OF THE BRAIN WITHOUT CONTRAST CLINICAL HISTORY: Acute stroke. Right hand and facial numbness. History of prior brain tumor resectio n. COMPARISON STUDY: CT scan dated 09/17/2020, MRI dated 07/14/2019 FINDINGS: Sagittal T1, axial diffusion, proton density and T2 weighted axial, coronal FLAIR, and axial T1-weigh jacqueline images were acquired. No intra or extra-axial mass lesions are visualized There is a 8 mm focus of restricted water diffusion within the left thalamus, consistent with a subac aldair infarct. This is of relatively normal signal on the ADC map. There is no evidence of ventricular dilatation. Proton density T2-weighted and FLAIR images reveal postsurgical changes of a right frontotemporal soft crab shedder niotomy. There is right temporal lobe encephalomalacia. There are scattered foci of increased T2 sign al within the white matter likely small vessel basis. The focus of restricted water diffusion within the left thalamus demonstrates increased FLAIR signal consistent with a subacute infarct.. There are no abnormal flow voids. There are foci of increased T2 signal within the right mastoid, likely an inflammatory basis IMPRESSION: 1. 8 mm focus of increased signal within the left thalamus on diffusion-weighted images with relative ly normal signal on the ADC map. This is consistent with a subacute infarct. 2. Right mastoid effusion. 3. Postsurgical changes of a right frontotemporal craniotomy with right temporal lobe encephalomalaci a ACT 112: Negative or not required by law. Electronically signed by: Ramses Silva M.D. 09/18/2020 7:02 AM
[2020-09-18 07:13] LABS: Estimated Average Glucose 137 mg/dl; Hemoglobin A1C 6.4 % (4.5-5.6)
--- NOTE | 2020-09-18 07:13 | CT Scan Report ---
CT SCAN OF THE BRAIN WITHOUT IV CONTRAST CLINICAL HISTORY: Transient ischemic attack. COMPARISON STUDY: CT and MRI of the brain dated 09/17/2020. TECHNIQUE: Unenhanced axial CT scan of the brain is performed from the vertex to the skull base. A do se lowering technique was utilized adhering to the principles of ALARA. CT DOSE: 614.27 mGy.cm FINDINGS: Brain parenchyma: Right temporal encephalomalacia is consistent with a site of previous mass resectio n. There are age-related involutional changes noting mild subcortical and periventricular microangio pathic change. A 9 mm subacute lacunar infarct is again seen in the left thalamus. There is no hemorr merary, mass effect, or evidence of acute territorial ischemia by CT criteria. Humphries-white matter differ entiation is preserved. No extra-axial fluid collection is seen. Calcifications in the gary are uncha nged from previous. Ventricles, sulci, cisterns: Prominent secondary to involutional change. Intracranial vasculature: There is atherosclerotic calcification of the cavernous carotid and vertebr al arteries. Calvarium: There is postoperative change from previous right temporal craniotomy. No destructive calv arial lesion is seen. Heterogeneous change in the calvarium at the skull base may be related to previ ous radiation treatment. Sinuses and mastoids: The visualized paranasal sinuses are clear. There are bilateral mastoid effusio ns, right larger than left. Orbits: The bony orbits are grossly intact. IMPRESSION: 1. There is no hemorrhage, mass effect, or evidence of acute territorial ischemia by CT criteria. 2. Postoperative change and right temporal encephalomalacia as above. This is similar to previous. 3. A subacute lacunar infarct is again seen in the left thalamus. ACT 112: Negative or not required by law. Electronically signed by: Leonides Partida M.D. 09/18/2020 7:12 AM
--- NOTE | 2020-09-18 07:16 | Electrocardiogram Report ---
Test Reason : Blood Pressure : / mmHG Vent. Rate : 065 BPM Atrial Rate : 065 BPM P-R Int : 182 ms QRS Dur : 082 ms QT Int : 406 ms P-R-T Axes : 059 042 058 degrees QTc Int : 422 ms Normal sinus rhythm Normal ECG When compared with ECG of 13-FEB-2018 09:35, No significant change was found Confirmed by Praveen Hines ([id number]) on 09/18/2020 7:15:47 AM Referred By: ED Confirmed By:Praveen Hines
[2020-09-18 07:23] LABS: BUN Creatinine Ratio 16.6 (10-20); Calcium 8.5 mg/dl (8.5-10.1); Creatinine Clr Calc Pharmacy 95.6 ml/min; Est GFR (African American) 111.4; Est GFR (Non-African American) 96.1; Magnesium 2.1 mg/dl (1.8-2.4); Potassium 3.9 mmol/L (3.5-5.1)
[2020-09-18] MEDS ORDERED: ATORVASTATIN 20 MG TAB PO SCH (09:00)
[2020-09-18] MEDS ORDERED: FLUTICASONE PROPIONATE NA SPR 16 GM BTL SCH (09:00)
[2020-09-18] MEDS ORDERED: MONTELUKAST SODIUM 10 MG TABLET PO SCH (09:00)
[2020-09-18] MEDS: levETIRAcetam 500 MG TAB PO SCH (09:12)
[2020-09-18] MEDS ORDERED: ATORVASTATIN 20 MG TAB PO STA (14:56)
[2020-09-18] MEDS ORDERED: ASPIRIN 81 MG ECTAB PO SCH ×2 (15:00→15:15)
[2020-09-18] MEDS ORDERED: STROKE PATIENT DISCHARGE STA (15:28)
--- NOTE | 2020-09-18 16:16 | Pharmacy Report ---
Pharmacist Stroke Counseling - Date of Service September 18, 2020 - Scope: Pharmacy has been consulted to provide medication discharge counseling for this patient admitted with [ischemic stroke] [hemorrhagic stroke] [transient ischemic attack] as per the Pharmacist Discharge Counseling for Stroke Patients Protocol . - Medications on Discharge: Home Medications Medication Instructions Recorded Confirmed acyclovir 400 mg tablet 400 mg PO TID PRN tab 05/29/20 09/17/20 New Rx's Medication Instructions Recorded fluticasone furoate 27.5 1 sprays INTNAS DAILY #9.1 ml 02/16/19 mcg/actuation nasal spray,suspension chlorpheniramine maleate 4 mg 4 mg PO Q12H #60 tab 03/16/20 tablet benzonatate 100 mg capsule 100 mg PO TID PRN #30 cap 04/18/20 montelukast 10 mg tablet 10 mg PO DAILY #30 tab 05/10/20 levetiracetam 500 mg tablet 500 mg PO BID #60 tab 05/14/20 levothyroxine 25 mcg tablet 25 mcg PO DAILY #30 tab 05/29/20 aspirin 81 mg PO QAM #30 tab 09/18/20 atorvastatin 40 mg PO HS #30 tab 09/18/20 - Action: The above medications, specifically ones for stroke treatment/prophylaxis, have been reviewed in detail with the patient prior to discharge. This includes i ndication, common adverse reactions, drug interactions, and medication administration. Medication counseling has been employed using the teach-back method to ensure understanding. - Outcome: The patient has demonstrated understanding of the medications. Additional comments: Spoke over the phone with patient today- she was very pleasant and receptive to counseling. Reviewed new medications to prevent stroke including Aspirin and Atorvastatin . Discussed why they are being used and common side effects in great detail. Reviewed how to use the medications, what to do if doses are missed, common drug interactions, common side effects. Pt verbalized understanding and re-stated cisneros points of each medication. Thank you for allowing pharmacy to be involved in the care of this patient. Please call [phone] with any additional questions
--- NOTE | 2020-09-18 16:59 | XCELERA ---
[id number]
--- NOTE | 2020-09-23 22:50 | Discharge Summary ---
Date of Service September 18, 2020 Admission HPI Per Admitting Provider This is a 60-year-old female with past mental history of seizure disorder, right temporal mass resection approximate 20 years ago that presents today complaining of right hand and face numbness. Patient is a decent historian, unaccompanied in the room. Patient tells me that she woke up Saturday morning, 2 days ago and noted right hand numbness. This involves her entire hand to the wrist. She did not notice any weakness. This was accompanied by right facial numbness which extended from the nose down to the chin and back through the cheek. Contralateral side was not affected. Her noted that she had trouble speaking, patient was unclear on this but seem to be more dysarthria than aphasia. Symptoms have not improved since initial presentation. Patient has not had any other neurological symptoms such as ataxia, weakness in any extremity, visual issues, or confusion. Patient did not seek medical attention until today when the symptoms did not resolve. At this time, patient is still complaining of persistent numbness. I did detect some mild dysarthria with speaking to her but she has no facial weakness or aphasic difficulties. She denies any other systemic symptoms such as fever, chills, nausea, vomiting, abdominal pain, chest pain, or shortness of breath. She also denies that she has had a seizure in many years and regularly follows with neurology. Principal Diagnosis lacunar infarct Discharge Exam Constitutional: WD/WN, vitals as above + obese; no acute distress Eyes: PERRL, conjunctivae normal, anicteric sclerae Neck: trachea midline, no thyromegaly Respiratory: normal respiratory effort, lungs clear to auscultation Auscultation: lungs clear to auscultation bilaterally Cardiovascular: Rate/Rhythm: regular rate and regular rhythm Heart Sounds: normal S1 and normal S2 Vessels: no JVD and no carotid bruit Gastrointestinal (Abdomen): normal bowel sounds, soft, nontender, no hepatosplenomegaly Musculoskeletal: no cyanosis or clubbing, extremities motor strength 5/5 Neurologic: Subjective numbness of the right hand to the wrist. 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 Mild dysarthria noted, patient has no facial droop and cranial nerves II through XII appear to be intact Discharge Data Allergies Allergy/AdvReac Type Severity Reaction Status Date / Time Sulfa (Sulfonamide Allergy Intermediate ITCHING, Verified 09/17/20 11:56 Antibiotics) BURNING aspirin Allergy Unknown TO AVOID Verified 09/17/20 11:56 -HX BRAIN TUMOR NOT TO TAKE Consultations 09/17/20 11:30 ED Decision to Admit Stat Ordered Studies 09/17/20 10:23 CT head/brain wo con Stat 09/17/20 14:07 CT angio head w con Routine CT angio neck with con Routine MR brain wo con Routine 09/18/20 03:25 CT head/brain wo con Urgent Hospital Course (1) Lacunar infarction: CT scan noting a small left lacunar infarct of indeterminate age Unclear if this is the current cause of her symptoms or if there is another acute infarct as well Placed in monitored observation Check CT perfusion studies of the head and neck Check MRI of the brain: shows lacunar infarct. 2D echo ordered Will place on aspirin. Will have patient followup with neurology as an outpatient. will place on atiorvastatin 40 mg PO HS (2) Seizure disorder: Patient is on Keppra chronically, will continue (3) Hx of brain cancer: Has been stable, will await imaging studies as noted above. Further recommendations per neurology (4) Hypothyroidism: Continue levothyroxine once cleared for speech Total Time Total Time Spent Total Time Spent (In Minutes): 32 Total Time Includes: Examination of the Patient, Discharge Planning and Medication Reconciliation Discharge Plan Discharge Items Patient Disposition: Home - Self-Care Reason For Visit: R HAND NUMBNESS, R/O CVA Discharge Diagnosis: R hand numbness, R/O CVA Activity: Resume your previous activity Non-emergency contact: Primary Care Provider Call non-emergency contact if: you have any medication questions Follow-up/Referrals: Aleshia Morton MD [Primary Care Provider] - 09/25/20 2:00 pm Zuleika Masters PA-C [Physician [employer] Mechanic Helper] - 10/03/20 3:30 pm Diet: Regular and Heart Healthy Addtl Attending Provider Instructions: Followup with Neurology within 2-4 weeks Followup with PCP in 1-2 weeks Risk Factors for Stroke: You can reduce your chances of stroke by working with your medical provider to adopt a healthy lifestyle. Some specific ways to lower your chance of stroke are: * If you are a smoker, now is the time to stop smoking cigarettes * If you are diabetic, improve the control of your blood sugars * Avoid excessive amounts of alcohol * Control high blood pressure * Lose weight if you are overweight * Be sure to lead an active lifestyle * Eat a healthy diet low in salt, cholesterol and fat You should know about other risk factors for stroke that you are unable to control. These include: * Age 55 years or older * Male gender * Certain racial groups: , or / * Family History of Stroke, Mini stroke or Heart Attack * Sickle Cell Disease Follow Up: It is important for you to keep your follow up appointments with your medical provider. Who to Call and When: Medical Emergencies: Call 911 immediately if you experience any of the following warning signs and symptoms of Stroke: * Sudden numbness or weakness of the face, arm or leg, especially on one side of the body * Sudden confusion, trouble speaking or understanding * Sudden trouble seeing in one or both eyes * Sudden trouble walking, dizziness, loss of balance or coordination * Sudden severe headache with no cause Do not delay calling 911 if you experience any warning signs or symptoms of a stroke. Delay in seeking medical attention may affect what treatments can be given to you. . Pending Studies at Discharge: No Stand-Alone Forms: Medications to Prevent Stroke, [facility], Work/School Release, Smoking Cessation Medications and DC Order Prescriptions: New aspirin 81 mg Tablet,Delayed Release (Dr/Ec) 81 mg PO QAM Qty: 30 RF: 0 atorvastatin 40 mg tablet 40 mg PO HS Qty: 30 RF: 0 Continued chlorpheniramine maleate [Allergy Relief(chlorpheniramn)] 4 mg tablet 4 mg PO Q12H Qty: 60 RF: 5 levetiracetam 500 mg tablet 500 mg PO BID Qty: 60 RF: 5 montelukast 10 mg tablet 10 mg PO DAILY Qty: 30 RF: 11 acyclovir 400 mg tablet 400 mg PO TID PRN (Reason: Cold Sores) RF: 0 levothyroxine 25 mcg tablet 25 mcg PO DAILY Qty: 30 RF: 5 fluticasone furoate 27.5 mcg/actuation spray,suspension 1 sprays INTNAS DAILY Qty: 9.1 RF: 5 No Action benzonatate [Tessalon Perles] 100 mg capsule 100 mg PO TID PRN (Reason: cough) Qty: 30 RF: 1 Discharge Orders: Discharge Order (Routine); Ordered 09/18/20 Ordered By: Edgard Moseley/Other Patient Handouts: Prediabetes, 5 Steps for Eating Healthier, A1C Admission Data Admit Date/Time: 09/17/20 12:15 Attending Provider: Edgard De La Garza Admit Provider: Warren Corrales Primary Care Provider: Aleshia Morton Other Providers: Warren Corrales Other Interventions: Discharge Summary Assessment (RN) Last Done: 09/18/20 16:03 Coding Level of Care Code D/C Day Management >30 mins Diagnoses Lacunar infarction I63.81 Seizure disorder G40.909 Hx of brain cancer Z85.841 Hypothyroidism E03.9 Time Spent (min) 32
== END 2020-09-18 16:51 | disposition home or self-care (01) ==
LOC: 2S 10:13 → ED 10:13 → SUATTDRO 12:15 → 2S 13:39

== ENCOUNTER 2023-01-02 18:13 | Inpatient (IN) ==
[2023-01-02] MEDS ORDERED: SODIUM CHLORIDE 0.9% 1,000 ML IV STA (18:23)
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
--- NOTE | 2023-01-02 18:49 | XRay Report ---
XR chest 1V portable CLINICAL HISTORY: Chest pain, nonspecific TECHNIQUE: Single frontal radiograph of the chest was obtained. Comparison: Comparison is made to chest radiograph 05/10/2021 FINDINGS: No lines and tubes are seen. Calcified aortic knob is seen. The lungs are clear. No evidence of pleur al effusion or pneumothorax. IMPRESSION: No acute chest disease. ACT 112: Negative or not required by law. Electronically signed by: Bill Foss M.D. 01/02/2023 6:48 PM
[2023-01-02 18:50] LABS: Basophils # (auto) 0.04 K/uL (0.00-0.20); Basophils % (auto) 0.7 %; Hematocrit (blood only) 32.9 % (37.0-47.0); Hemoglobin 11.6 g/dl (12.0-16.0); Immature Granulocytes # (auto) 0.01 K/uL (0.01-0.20); Immature Granulocytes % (auto) 0.2 %; Lymphocytes # (auto) 1.03 K/uL (1.20-3.40); Lymphocytes % (auto) 17.3 %; Mean Corpuscular Hemoglobin 31.5 pg (25.0-34.0); Mean Corpuscular Hgb Conc 35.3 g/dL (32.0-36.0); Mean Corpuscular Volume 89.4 fL (80.0-100.0); Mean Platelet Volume 9.4 fL (9.4-12.4); Monocytes # (auto) 0.35 K/uL (0.11-0.59); Monocytes % (auto) 5.9 %; Neutrophils # (auto) 4.51 K/uL (1.40-6.50); Neutrophils % (auto) 75.9 %; Platelet Count 177 K/uL (130-400); RDW Coefficient of Variation 13.6 % (11.5-14.5); RDW Standard Deviation 44.7 fL (36.4-46.3); Red Blood Count 3.68 M/uL (4.20-5.40); White Blood Count 5.94 K/ul (4.8-10.8)
[2023-01-02 19:09] LABS: Alanine Aminotransferase 10 U/L (7-52); Albumin Globulin Ratio 1.4 (0.9-2); Albumin Level 3.9 gm/dl (3.4-5.0); Alkaline Phosphatase 53 U/L (34-104); Anion Gap 7 (3-11); Aspartate Aminotransferase 11 U/L (13-39); BUN Creatinine Ratio 9.7 (10-20); Bilirubin,Total 1.1 mg/dl (0.2-1.0); Blood Urea Nitrogen 6 mg/dl (6-23); Calcium 8.6 mg/dl (8.6-10.3); Carbon Dioxide 29 mmol/L (21-32); Chloride 99 mmol/L (98-107); Creatinine Clr Calc Pharmacy 87.7 ml/min; Est GFR (African American) 110.4 ml/min; Est GFR (Non-African American) 95.3 ml/min; Globulin 2.8 gm/dl (2.5-4.0); Glucose 148 mg/dl (70-99(Fasting)); Lipase 31 U/L (11-82); Sodium 135 mmol/L (136-145); Total Protein 6.7 gm/dl (6.0-8.3)
[2023-01-02 19:15] LABS: Troponin I High Sensitivity < 2.3 pg/ml (0-14)
[2023-01-02 19:24] LABS: INR 1.1 (0.9-1.1); Prothrombin Time 11.6 Seconds (9.0-12.0)
[2023-01-02 19:31] LABS: Appearance Urine Turbid (Clear); Bacteria Urine Automated 4+ (Negative); Bilirubin Urine Negative (Negative); Blood Urine 3+ (Negative); Cast Urine Automated 0 /lpf (0-5); Color Urine Dark Yellow; Glucose Urine UA Negative (Negative); Ketones Urine Negative (Negative); Leukocyte Esterase Urine 2+ (Negative); Nitrite Urine Negative (Negative); RBC Urine Automated >30 /hpf (0-4); Specific Gravity Urine 1.015 (1.000-1.030); Urobilinogen Urine Positive (Negative); WBC Urine Automated >30 /hpf (0-5); pH Urine >= 9.0 (4.5-7.5)
[2023-01-02 19:33] LABS: Protein Urine 2+ (Negative)
[2023-01-02 19:56] LABS: Amphetamines+Metham, Urine Neg (Neg); Barbiturates, Urine Neg (Neg); Benzodiazepine, Urine Neg (Neg); Cocaine, Urine Neg (Neg); MDMA (Ecstacy), Urine Neg (Neg); Methadone, Urine Neg (Neg); Opiate, Urine Neg (Neg); Phencyclidine, Urine Neg (Neg)
--- NOTE | 2023-01-02 19:59 | CT Scan Report ---
Exam(s): CT HEAD Without Contrast EXAM: CT Head Without Intravenous Contrast CLINICAL HISTORY: Reason for exam: AMS. TECHNIQUE: Axial computed tomography images of the head/brain without intravenous contrast. CTDI is 36.79 mGy and DLP is 546.36 mGy-cm. Automated exposure control was utilized for the study. A dose lowering technique was utilized adhering to the principles of ALARA. COMPARISON: 05/10/21 FINDINGS: There is an old right frontotemporal craniotomy. There is no skull fracture. Sinuses are clear. There are trace bilateral mastoid effusions. There is generalized parenchymal volume loss and mild chronic small vessel ischemic change. There is stable encephalomalacia in the right temporal lobe. Humphries-white matter differentiation is otherwise maintained. There is no hemorrhage, mass-effect, or parenchymal edema. Chronic lacunar infarct of the left thalamus is stable. There is no hydrocephalus. IMPRESSION: No acute findings. Electronically signed by: Landy Quintero M.D. 01/02/23 19:58 PM
[2023-01-02] MEDS ORDERED: cephALEXin 250 MG CAP PO ONE (20:18)
[2023-01-02] MEDS ORDERED: LORazepam 2 MG/1 ML VIAL IV STA (20:49)
--- NOTE | 2023-01-02 22:37 | Magnetic Resonance Report ---
Exam(s): MRI HEAD Without Contrast EXAM: MR Head Without Intravenous Contrast CLINICAL HISTORY: Reason for exam: AMS, ataxia. TECHNIQUE: Magnetic resonance images of the head/brain without intravenous contrast in multiple planes. COMPARISON: CT head 01/02/23; MRI brain 01/31/22 FINDINGS: There is no diffusion restriction to suggest acute cerebral ischemia. There is no acute intracranial hemorrhage or abnormal extra-axial fluid collection. There is no mass-effect or midline shift. There is an old right frontotemporal craniotomy with stable encephalomalacia in the right temporal lobe. There is generalized parenchymal volume loss with mild chronic small vessel ischemic changes in the periventricular cerebral white matter. There is a chronic lacunar infarct in the left thalamus. There is no hydrocephalus. Patient is status post right-sided intraocular lens replacement. Orbits are otherwise unremarkable. Paranasal sinuses are clear. There are bilateral mastoid effusions, right greater than left. IMPRESSION: No acute findings. No acute infarct or acute hemorrhage. Electronically signed by: Landy Quintero M.D. 01/02/23 22:36 PM
[2023-01-02] MEDS ORDERED: cefTRIAXone SODIUM 2,000 MG/70 ML BAG IV STA (22:48)
--- NOTE | 2023-01-02 23:43 | History & Physical Report ---
Date of Service January 02, 2023 Assessment & Plan (1) Confusion: Plan: 62yo female with history of brain tumor s/p surgical excision/chemo/XRT, seizure disorder, prior CVA, DM presenting with episode of confusion that occurred today at the [facility]. Patient was driving her motorized scooter erratically, ataxic, possible syncopal event and confused. reports that she has been having increased episodes of confusion and odd behavior. Afebrile. BP is elevated Workup with normal WBC count. Mild hyponatremia with Nr=[id number]. UA suggestive of infection CT head and MRI brain are NORMAL Broad differential diagnosis. Consider seizure activity in patient with history of prior brain surgery, known seizure disorder. ?hypoglycemia - patient does not check her blood sugar at home, infection, dementia -Admit to medical -Check Keppra level, Lyme Ab, Vit B12 -Follow cultures -Frequent orientation -Consider Neuro consult -If unrevealing workup consider LP (2) UTI (urinary tract infection): Plan: UA with possible infection, hematuria -Follow urine culture -Ceftriaxone 2gm IV daily (3) Hyperlipidemia: Plan: -Continue Atorvastatin (4) Seizure disorder: Plan: Overall with well controlled seizures - last seizures in July of 2018. She follows with Neurology -Continue Keppra 500mg po BID -Check Keppra level (5) Hypothyroidism: Plan: Chronic. 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 Patient is unable to provide details of events prior to arrival. History obtained through discussion with ER staff, chart review and at bedside (not present during acute events, however). Patient was at the [facility] today when she became confused. She began running into people with her motorized scooter and driving where she wasn't supposed to be driving. She was acting odd and had some reported ataxia and possible syncope so she was brought to [facility]. In the ER patient afebrile, hypertensive otherwise HD stable. She was acting strangely - minimally responsive or slow to respond. In the ER she climbed over her bedrail and was running down the yuan. She was also apparently climbing over the sink in MRI. at bedside reports that she has been acting "weird" for the last couple of months. She has episodes where her "eyes look like they're in outer space" and she becomes minimally responsive and ataxic. These episodes are becoming more frequent. Patient with no complaints at this time. She does not recall the events of today. ER Course: Ceftriaxone Ativan 0.5mg Keflex 500mg PO NSS x 1L Allergies Allergy/AdvReac Type Severity Reaction Status Date / Time Sulfa (Sulfonamide Allergy Intermediate ITCHING, Verified 12/29/22 11:31 Antibiotics) BURNING aspirin Allergy Unknown TO AVOID Verified 12/29/22 11:31 -HX BRAIN TUMOR NOT TO TAKE Home Medications Medication Instructions Recorded Confirmed Type aspirin 81 mg tablet,delayed 81 mg PO QAM #30 tabs 09/18/20 12/29/22 Rx release clotrimazole-betamethasone 1 1 applic topical BID #45 grams 09/03/22 12/29/22 Rx %-0.05 % topical cream omeprazole 20 mg capsule,delayed 20 mg PO QAM 09/03/22 12/29/22 History release levetiracetam 500 mg tablet 500 mg PO BID #180 tabs 09/16/22 12/29/22 Rx atorvastatin 40 mg tablet 40 mg PO DAILY #90 tabs 09/17/22 12/29/22 Rx metformin 500 mg tablet,extended 500 mg PO BID #180 tabs 09/17/22 12/29/22 Rx release 24 hr levothyroxine 25 mcg tablet 25 mcg PO QAM 09/22/22 12/29/22 History montelukast 10 mg tablet 10 mg PO DAILY #90 tabs 10/17/22 12/29/22 Rx (Singulair) potassium chloride 20 mEq 20 meq PO DAILY #90 tabs 12/29/22 Rx tablet,extended release Past Med/Surg History Medical History Allergic rhinitis Chronic cough Chronic sinusitis Esophageal reflux History of CVA (cerebrovascular accident) lacunar infarct 09/2020>STILL HAS NUMBNESS IN RT HAND AND RT SIDE OF FACE Hx of brain cancer Right temporal glioma, s/p surgery, 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 Hyperlipidemia Hypothyroidism Multiple pulmonary nodules stable on imaging - no further workup required Recurrent herpes labialis Seizure disorder hx of 2001 > none since Tinea corporis Type 2 diabetes mellitus Surgical History History of cataract surgery right Hx of brain surgery 2001-[facility] Hx of section Hx of colonoscopy Hx of tubal ligation Family History Grandmother Family history of diabetes mellitus Father Myocardial infarction Other No significant family history Denies family history of Ovarian cancer Prostate cancer Breast cancer Colorectal cancer Social History Smoking Status: Former smoker Second Hand Exposure: No; Do You Dip or Chew Tobacco: No; Hx Alcohol Use: No Hx Substance Use: No Preferred Language: Citizen Of [place] Communication Ability: Effective Communication Ability Comment: TROUBLE HEARING OUT OF RIGHT SIDE [employer] Required: No Beliefs That Will Affect Care: None marital status: Current Living Situation: Spouse current occupational status: employed 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 Oriented only to self Skin: warm, dry, intact, diffuse fungal appearing rash on chest, abdomen and groin HEENT: NC/AT, PERRL, EOMI, anicteric sclera, conjunctiva without injection, external ear normal to inspection and nontender, nares patent, moist mucus me mbranes, dentition intact, no oropharyngeal lesions, neck supple, trachea midline, no LAD, no thyromegaly, no JVD Heart: +S1/S2, regular, no m/r/g Lungs: equal air entry bilaterally, no rales/rhonchi/wheezes Abd: +BS, soft, NT/ND, no masses/organomegaly/ascites Ext: warm, 2+ pulses in UE/LE bilaterally, no clubbing/cyanosis or edema Neuro: nonfocal, oriented x 1, slow to answer questions and does not answer appropriately Results & Data Results & Data Vital Signs (Past 12 Hours) Vital Signs Temp Pulse Resp BP Pulse Ox O2 Del Method 01/02/23 23:00 68 23 01/02/23 22:43 80 188/109 H 97 01/02/23 21:40 70 20 176/88 H 93 01/02/23 20:00 69 21 01/02/23 20:00 177/95 H 01/02/23 19:30 77 22 01/02/23 19:30 176/97 H 01/02/23 19:04 81 16 01/02/23 18:30 76 20 01/02/23 18:26 80 25 H 01/02/23 18:26 79 01/02/23 18:26 97 Room Air 01/02/23 18:23 37.5 C 80 16 172/70 H 95 Room Air Laboratory Results Laboratory Results WBC 5.94 K/ul (4.8-10.8) 01/02/23 18:32 RBC 3.68 M/uL (4.20-5.40) L 01/02/23 18:32 Hgb 11.6 g/dl (12.0-16.0) L 01/02/23 18:32 Hct 32.9 % (37.0-47.0) L 01/02/23 18:32 MCV 89.4 fL (80.0-100.0) 01/02/23 18:32 MCH 31.5 pg (25.0-34.0) 01/02/23 18: MCHC 35.3 g/dL (32.0-36.0) 01/02/23 18:32 RDW Std Deviation 44.7 fL (36.4-46.3) 01/02/23 18: RDW Coeff of Juliet 13.6 % (11.5-14.5) 01/02/23 18:32 Plt Count 177 K/uL (130-400) 01/02/23 18:32 MPV 9.4 fL (9.4-12.4) 01/02/23 18:32 Immature Gran % (Auto) 0.2 % 01/02/23 18:32 Neut % (Auto) 75.9 % 01/02/23 18:32 Lymph % (Auto) 17.3 % 01/02/23 18:32 [place] % (Auto) 5.9 % 01/02/23 18:32 Eos % (Auto) 0.0 % 01/02/23 18:32 Baso % (Auto) 0.7 % 01/02/23 18:32 Neut # (Auto) 4.51 K/uL (1.40-6.50) 01/02/23 18:32 Lymph # (Auto) 1.03 K/uL (1.20-3.40) L 01/02/23 18:32 [place] # (Auto) 0.35 K/uL (0.11-0.59) 01/02/23 18:32 Eos # (Auto) 0.00 K/uL (0.00-0.50) 01/02/23 18:32 Baso # (Auto) 0.04 K/uL (0.00-0.20) 01/02/23 18:32 Immature Gran # (Auto) 0.01 K/uL (0.01-0.20) 01/02/23 18:32 PT 11.6 Seconds (9.0-12.0) 01/02/23 18:32 INR 1.1 (0.9-1.1) 01/02/23 18:32 Sodium 135 mmol/L (136-145) L 01/02/23 18:32 Potassium 4.0 mmol/L (3.5-5.1) 01/02/23 18:32 Chloride 99 mmol/L (98-107) 01/02/23 18:32 Carbon Dioxide 29 mmol/L (21-32) 01/02/23 18:32 Anion Gap 7 (3-11) 01/02/23 18:32 BUN 6 mg/dl (6-23) 01/02/23 18:32 Creatinine 0.62 mg/dl (0.6-1.2) 01/02/23 18:32 Est Cr Clr Drug Dosing 87.7 ml/min 01/02/23 18:32 Est GFR ( Amer) 110.4 ml/min 01/02/23 18:32 Est GFR (Non-Af Amer) 95.3 ml/min 01/02/23 18:32 BUN/Creatinine Ratio 9.7 (10-20) L 01/02/23 18:32 Glucose 148 mg/dl (70-99(Fasting)) H 01/02/23 18:32 POC Glucose 103 mg/dl (70-99) H 01/02/23 22:47 Calcium 8.6 mg/dl (8.6-10.3) 01/02/23 18:32 Total Bilirubin 1.1 mg/dl (0.2-1.0) H 01/02/23 18:32 AST 11 U/L (13-39) L 01/02/23 18:32 ALT 10 U/L (7-52) 01/02/23 18:32 Alkaline Phosphatase 53 U/L (34-104) 01/02/23 18:32 Ammonia 34.0 umol/L (18-72) 01/02/23 18:32 Troponin I High Sens < 2.3 pg/ml (0-14) 01/02/23 18:32 Total Protein 6.7 gm/dl (6.0-8.3) 01/02/23 18:32 Albumin 3.9 gm/dl (3.4-5.0) 01/02/23 18:32 Globulin 2.8 gm/dl (2.5-4.0) 01/02/23 18:32 Albumin/Globulin Ratio 1.4 (0.9-2) 01/02/23 18:32 Lipase 31 U/L (11-82) 01/02/23 18:32 Urine Color Dark Yellow 01/02/23 19:05 Urine Appearance Turbid (Clear) A 01/02/23 19:05 Urine pH >= 9.0 (4.5-7.5) H 01/02/23 19:05 Ur Specific [place] 1.015 (1.000-1.030) 01/02/23 19:05 Urine Protein 2+ (Negative) H 01/02/23 19:05 Urine Glucose (UA) Negative (Negative) 01/02/23 19:05 Urine Ketones Negative (Negative) 01/02/23 19:05 Urine Blood 3+ (Negative) H 01/02/23 19:05 Urine Nitrite Negative (Negative) 01/02/23 19:05 Urine Bilirubin Negative (Negative) 01/02/23 19:05 Urine Urobilinogen Positive (Negative) H 01/02/23 19:05 Ur Leukocyte Esterase 2+ (Negative) H 01/02/23 19:05 Urine WBC (Auto) >30 /hpf (0-5) H 01/02/23 19:05 Urine RBC (Auto) >30 /hpf (0-4) H 01/02/23 19:05 U Hyaline Cast (Auto) 0 /lpf (0-5) 01/02/23 19:05 U Epithel Cells (Auto) 10-20 /lpf (0-5) H 01/02/23 19:05 Urine Bacteria (Auto) 4+ (Negative) H 01/02/23 19:05 Urine Opiates Screen Neg (Neg) 01/02/23 19:05 Ur Methadone, Qual Neg (Neg) 01/02/23 19:05 Urine Barbiturates Neg (Neg) 01/02/23 19:05 Ur Phencyclidine (PCP) Neg (Neg) 01/02/23 19:05 U Amphetamin/Meth Scrn Neg (Neg) 01/02/23 19:05 MDMA (Ecstasy) Screen Neg (Neg) 01/02/23 19:05 U Benzodiazepines Scrn Neg (Neg) 01/02/23 19:05 Ur Cocaine Metabolite Neg (Neg) 01/02/23 19:05 U Marijuana (THC) Screen Neg (Neg) 01/02/23 19:05 Ethyl Alcohol mg/dL < 10.0 mg/dl (<10.0) 01/02/23 18:32 Impressions Chest X-Ray 01/02/23 18:23 XR chest 1V portable CLINICAL HISTORY: Chest pain, nonspecific TECHNIQUE: Single frontal radiograph of the chest was obtained. Comparison: Comparison is made to chest radiograph 05/10/2021 FINDINGS: No lines and tubes are seen. Calcified aortic knob is seen. The lungs are clear. No evidence of pleural effusion or pneumothorax. IMPRESSION: No acute chest disease. ACT 112: Negative or not required by law. Electronically signed by: Bill Foss M.D. 01/02/2023 6:[address] 01/02/23 18:23 Exam(s): CT HEAD Without Contrast EXAM: CT Head Without Intravenous Contrast CLINICAL HISTORY: Reason for exam: AMS. TECHNIQUE: Axial computed tomography images of the head/brain without intravenous contrast. CTDI is 36.79 mGy and DLP is 546.36 mGy-cm. Automated exposure control was utilized for the study. A dose lowering technique was utilized adhering to the principles of ALARA. COMPARISON: 05/10/21 FINDINGS: There is an old right frontotemporal craniotomy. There is no skull fracture. Sinuses are clear. There are trace bilateral mastoid effusions. There is generalized parenchymal volume loss and mild chronic small vessel ischemic change. There is stable encephalomalacia in the right temporal lobe. Humphries-white matter differentiation is otherwise maintained. There is no hemorrhage, mass-effect, or parenchymal edema. Chronic lacunar infarct of the left thalamus is stable. There is no hydrocephalus. IMPRESSION: No acute findings. Electronically signed by: Landy Quintero M.D. 01/02/23 19:58 PM Brain MRI 01/02/23 20:31 Exam(s): MRI HEAD Without Contrast EXAM: MR Head Without Intravenous Contrast CLINICAL HISTORY: Reason for exam: AMS, ataxia. TECHNIQUE: Magnetic resonance images of the head/brain without intravenous contrast in multiple planes. COMPARISON: CT head 01/02/23; MRI brain 01/31/22 FINDINGS: There is no diffusion restriction to suggest acute cerebral ischemia. There is no acute intracranial hemorrhage or abnormal extra-axial fluid collection. There is no mass-effect or midline shift. There is an old right frontotemporal craniotomy with stable encephalomalacia in the right temporal lobe. There is generalized parenchymal volume loss with mild chronic small vessel ischemic changes in the periventricular cerebral white matter. There is a chronic lacunar infarct in the left thalamus. There is no hydrocephalus. Patient is status post right-sided intraocular lens replacement. Orbits are otherwise unremarkable. Paranasal sinuses are clear. There are bilateral mastoid effusions, right greater than left. IMPRESSION: No acute findings. No acute infarct or acute hemorrhage. Electronically signed by: Landy Quintero M.D. 01/02/23 22:36 PM PG Care Time/CCT Total # of Minutes Spent Total Time Spent with Patient: Total time spent is greater than 50% in coordination of care (as documented) at patient's floor/unit and/or counseling patient: Coding Level of Care Code 17334 INT INP/OBS CARE 3/75MIN Diagnoses Confusion R41.0 UTI (urinary tract infection) N39.0 Hyperlipidemia E78.5 Seizure disorder G40.909 Hypothyroidism E03.9 Type 2 diabetes mellitus E11.9
[2023-01-03] MEDS ORDERED: GLUCAGON FOR INJ 1 MG VIAL SQ PRN (01:36)
[2023-01-03] MEDS ORDERED: DEXTROSE 50% 50 ML SYRINGE IV PRN (01:36)
[2023-01-03] MEDS ORDERED: GLUCOSE 40% GEL 15 GM TUBE PO PRN (01:36)
[2023-01-03] MEDS ORDERED: ACETAMINOPHEN 325 MG TAB PO PRN (01:36)
[2023-01-03] MEDS ORDERED: GLUCOSE 10 TAB/TUBE PO PRN (01:36)
[2023-01-03] MEDS ORDERED: CARBOHYDRATES FOR HYPOGLYCEMIA PO PRN (01:36)
[2023-01-03] MEDS ORDERED: ONDANSETRON INJ 2 MG/ML 2 ML VIAL IV PRN (01:36)
[2023-01-03 02:05] LABS: Magnesium 0.9 mg/dl (1.7-2.4); Phosphorus 3.4 mg/dl (2.5-4.9)
[2023-01-03] MEDS: MAGNESIUM SULFATE / D5W 1 GM/100 ML BAG IV SCH ×4 (02:47→09:11)
[2023-01-03] MEDS: hydrALAZINE HCL 25 MG TAB PO PRN (02:47)
[2023-01-03 06:26] LABS: Hematocrit (blood only) 32.3 % (37.0-47.0); Hemoglobin 11.6 g/dl (12.0-16.0); Mean Corpuscular Hgb Conc 35.9 g/dL (32.0-36.0); Mean Platelet Volume 9.3 fL (9.4-12.4); Platelet Count 158 K/uL (130-400); RDW Coefficient of Variation 13.3 % (11.5-14.5); RDW Standard Deviation 43.1 fL (36.4-46.3); Red Blood Count 3.63 M/uL (4.20-5.40)
[2023-01-03] MEDS: LEVOTHYROXINE SODIUM 25 MCG TABLET PO SCH (06:31)
[2023-01-03 06:55] LABS: Albumin Level 3.8 gm/dl (3.4-5.0); BUN Creatinine Ratio 11.3 (10-20); Bilirubin Direct 0.2 mg/dl (0-0.2); Bilirubin,Total 0.8 mg/dl (0.2-1.0); Calcium 8.7 mg/dl (8.6-10.3); Creatinine Clr Calc Pharmacy 102.6 ml/min; Est GFR (African American) 116.3 ml/min; Est GFR (Non-African American) 100.3 ml/min; Magnesium 1.7 mg/dl (1.7-2.4); Potassium 3.5 mmol/L (3.5-5.1); Total Protein 6.4 gm/dl (6.0-8.3)
[2023-01-03 07:05] LABS: Lyme Ab IgG w/WB Rflx Negative (Negative); Lyme Ab IgM w/WB Rflx Negative (Negative)
--- NOTE | 2023-01-03 07:10 | Electrocardiogram Report ---
Test Reason : Blood Pressure : / mmHG Vent. Rate : 079 BPM Atrial Rate : 079 BPM P-R Int : 178 ms QRS Dur : 072 ms QT Int : 374 ms P-R-T Axes : 065 045 052 degrees QTc Int : 428 ms Normal sinus rhythm Low voltage QRS Borderline ECG When compared with ECG of 10-MAY-2021 11:58, No significant change was found Confirmed by Juan J Saenz ([id number]) on 01/03/2023 7:09:59 AM Referred By: REFERRED SELF Confirmed By:Emerson Saenz
[2023-01-03] MEDS: ATORVASTATIN 40 MG TAB PO SCH (09:10)
[2023-01-03] MEDS: ASPIRIN 81 MG ECTAB PO SCH (09:10)
[2023-01-03] MEDS: levETIRAcetam 500 MG TAB PO SCH ×2 (09:10→21:14)
[2023-01-03] MEDS: INSULIN ASPART PER UNIT CHARGE SC SCH ×4 (09:11→20:32)
[2023-01-03] MEDS: CLOTRIMAZOLE/BETAMETHASONE CR 15 GM TUBE EXT SCH ×2 (09:11→21:14)
--- NOTE | 2023-01-03 10:53 | Neurology Consultation ---
Date of Consultation January 03, 2023 Assessment & Plan (1) Confusion: Confusion, likely secondary to a UTI in the setting of prior brain tumor resection and radiation over 20 years ago. I suspect there is baseline cognitive impairment secondary to both the resection and effects from radiation. Importantly there is no change in the MRI. Seizure is possible though less likely. Would continue her keppra at the current dose. No further neurologic workup. She can follow-up with neurology as needed. Telehealth Consultation Telehealth Information Telehealth Information: I performed this visit using a real-time telehealth connection between my location and the patients location ([facility]). After connecting through interactive tele-video, patient was identified by name and date of and/or wristband check.Patient (or authorized healthcare exhibit display representative) was informed that this was a telemedicine visit and it was being conducted confidentially over secure lines. My office door was closed and no one else was present in the room with me.Patient (or authorized healthcare exhibit display representative) provided consent to proceed with the visit, expressed an understanding of privacy and security of the telemedicine visit, and gave permission to have a hospital exhibit display representative in the room in order to assist with the visit and to conduct portions of the visit, as needed. I informed the pat ient (or authorized healthcare exhibit display representative) that I reviewed their record and presented the opportunity for them to ask any questions regarding the visit today. The patient agreed to participate. History of Present Illness Reason for Consultation: Confusion Requesting Physician: Dr. Hurtado Attending Physician: Cristin Hurtado MD History of Present Illness Ashley hCanel is a 62 yo F [place] She was [place] her electric scooter erratically and briefly lost consciousness. She does not entirely recall the episode yesterday but feels better today. She lives with her at home and he helps her with tasks around the house. She has a history of a R temporal oligo s/p resection chemo and xrt with no recurrence over the last 23 years. She denies any missed doses of keppra and no known seizure since at least 2018. She does not believe she had a seizure yesterday. Denies any focal weakness, numbness, vision changes, headache or speech changes today. Allergies Allergy/AdvReac Type Severity Reaction Status Date / Time Sulfa (Sulfonamide Allergy Intermediate ITCHING, Verified 12/29/22 11:31 Antibiotics) BURNING aspirin Allergy Unknown TO AVOID Verified 12/29/22 11:31 -HX BRAIN TUMOR NOT TO TAKE Home Medications Medication Instructions Recorded Confirmed Type aspirin 81 mg tablet,delayed 81 mg PO QAM #30 tabs 09/18/20 12/29/22 Rx release clotrimazole-betamethasone 1 1 applic topical BID #45 grams 09/03/22 12/29/22 Rx %-0.05 % topical cream omeprazole 20 mg capsule,delayed 20 mg PO QAM 09/03/22 12/29/22 History release levetiracetam 500 mg tablet 500 mg PO BID #180 tabs 09/16/22 12/29/22 Rx atorvastatin 40 mg tablet 40 mg PO DAILY #90 tabs 09/17/22 12/29/22 Rx metformin 500 mg tablet,extended 500 mg PO BID #180 tabs 09/17/22 12/29/22 Rx release 24 hr levothyroxine 25 mcg tablet 25 mcg PO QAM 09/22/22 12/29/22 History montelukast 10 mg tablet 10 mg PO DAILY #90 tabs 10/17/22 12/29/22 Rx (Singulair) potassium chloride 20 mEq 20 meq PO DAILY #90 tabs 12/29/22 Rx tablet,extended release Patient History Medical History Allergic rhinitis Chronic cough Chronic sinusitis Esophageal reflux History of CVA (cerebrovascular accident) lacunar infarct 09/2020>STILL HAS NUMBNESS IN RT HAND AND RT SIDE OF FACE Hx of brain cancer Right temporal glioma, s/p surgery, 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 Hyperlipidemia Hypothyroidism Multiple pulmonary nodules stable on imaging - no further workup required Recurrent herpes labialis Seizure disorder hx of 2000 > none since Tinea corporis Type 2 diabetes mellitus Surgical History History of cataract surgery right Hx of brain surgery 2000-[facility] Hx of section Hx of colonoscopy Hx of tubal ligation Family History Grandmother Family history of diabetes mellitus Father Myocardial infarction Other No significant family history Denies family history of Ovarian cancer Prostate cancer Breast cancer Colorectal cancer Social History Smoking Status: Former smoker Second Hand Exposure: No; Do You Dip or Chew Tobacco: No; Hx Alcohol Use: No Hx Substance Use: No Preferred Language: Turkmen Communication Ability: Effective Communication Ability Comment: TROUBLE HEARING OUT OF RIGHT SIDE Software Integration Developer Required: No Beliefs That Will Affect Care: None marital status: Current Living Situation: Spouse current occupational status: employed 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 Oriented to person, place, and time. Fluent. Comprehension intact. Affect appropriate. Cranial Nerves: II: Reads NIHSS cards, pupils 3/3 to 2/2, mathis grossly intact. III/IV/: Versions intact without nystagmus V: Facial sensation symmetric to light touch VII: Facial expression symmetric VIII: Hearing intact to voice Motor: Strength was symmetric and antigravity throughout. There were no abnormal movements. Coordination: Finger to nose and heel to jerome were intact. Reflexes: Unable to assess over telemedicine Results & Data Vital Signs (Past 12 Hours) Vital Signs Temp Pulse Pulse Resp BP Pulse Ox O2 Del Method 01/03/23 08:00 69 01/03/23 07:39 36.8 C 63 15 162/77 H 97 Room Air 01/03/23 06:38 82 154/76 H 01/03/23 01:35 55 L 01/03/23 02:02 Room Air 01/03/23 02:02 37.2 C 63 18 190/81 H 97 Room Air 01/03/23 01:36 37.7 C H 63 18 190/81 H 97 Room Air 01/03/23 00:49 70 14 01/02/23 23:45 86 01/02/23 23:00 68 23 Laboratory Results Abnormal lab results 01/02/23 01/02/23 01/02/23 Range/Units 18:32 18:32 19:05 RBC 3.68 L (4.20-5.40) M/uL Hgb 11.6 L (12.0-16.0) g/dl Hct 32.9 L (37.0-47.0) % MPV (9.4-12.4) fL Lymph # (Auto) 1.03 L (1.20-3.40) K/uL Sodium 135 L (136-145) mmol/L Creatinine (0.6-1.2) mg/dl BUN/Creatinine Ratio 9.7 L (10-20) Glucose 148 H (70-99(Fasting)) mg/dl POC Glucose (70-99) mg/dl Magnesium 0.9 L* (1.7-2.4) mg/dl Total Bilirubin 1.1 H (0.2-1.0) mg/dl AST 11 L (13-39) U/L Urine Appearance Turbid A (Clear) Urine pH >= 9.0 H (4.5-7.5) Urine Protein 2+ H (Negative) Urine Blood 3+ H (Negative) Urine Urobilinogen Positive H (Negative) Ur Leukocyte Esterase 2+ H (Negative) Urine WBC (Auto) >30 H (0-5) /hpf Urine RBC (Auto) >30 H (0-4) /hpf U Epithel Cells (Auto) 10-20 H (0-5) /lpf Urine Bacteria (Auto) 4+ H (Negative) 01/02/23 01/03/23 01/03/23 Range/Units 22:47 06:00 06:00 RBC 3.63 L (4.20-5.40) M/uL Hgb 11.6 L (12.0-16.0) g/dl Hct 32.3 L (37.0-47.0) % MPV 9.3 L (9.4-12.4) fL Lymph # (Auto) (1.20-3.40) K/uL Sodium (136-145) mmol/L Creatinine 0.53 L (0.6-1.2) mg/dl BUN/Creatinine Ratio (10-20) Glucose 118 H (70-99(Fasting)) mg/dl POC Glucose 103 H (70-99) mg/dl Magnesium (1.7-2.4) mg/dl Total Bilirubin (0.2-1.0) mg/dl AST 11 L (13-39) U/L Urine Appearance (Clear) Urine pH (4.5-7.5) Urine Protein (Negative) Urine Blood (Negative) Urine Urobilinogen (Negative) Ur Leukocyte Esterase (Negative) Urine WBC (Auto) (0-5) /hpf Urine RBC (Auto) (0-4) /hpf U Epithel Cells (Auto) (0-5) /lpf Urine Bacteria (Auto) (Negative) 01/03/23 Range/Units 07:43 RBC (4.20-5.40) M/uL Hgb (12.0-16.0) g/dl Hct (37.0-47.0) % MPV (9.4-12.4) fL Lymph # (Auto) (1.20-3.40) K/uL Sodium (136-145) mmol/L Creatinine (0.6-1.2) mg/dl BUN/Creatinine Ratio (10-20) Glucose (70-99(Fasting)) mg/dl POC Glucose 124 H (70-99) mg/dl Magnesium (1.7-2.4) mg/dl Total Bilirubin (0.2-1.0) mg/dl AST (13-39) U/L Urine Appearance (Clear) Urine pH (4.5-7.5) Urine Protein (Negative) Urine Blood (Negative) Urine Urobilinogen (Negative) Ur Leukocyte Esterase (Negative) Urine WBC (Auto) (0-5) /hpf Urine RBC (Auto) (0-4) /hpf U Epithel Cells (Auto) (0-5) /lpf Urine Bacteria (Auto) (Negative) Diagnostic Findings MRI brain - unchanged
--- NOTE | 2023-01-03 11:36 | Hospitalist Progress Note ---
Date of Service January 03, 2023 Assessment & Plan (1) Confusion: Plan: 62yo female with history of brain tumor s/p surgical excision/chemo/XRT, seizure disorder, prior CVA, DM presenting with episode of confusion that occurred today at the [facility]. Patient was driving her motorized scooter erratically, ataxic, possible syncopal event and confused. reports that she has been having increased episodes of confusion and odd behavior. Afebrile. BP is elevated Workup with normal WBC count. Mild hyponatremia with Sd=500. UA suggestive of infection CT head and MRI brain are NORMAL Neurology consulted. Neurologist thinks that the confusion is due to a UTI in the setting of her prior cognitive impairment due to brain tumor resection and radiation. No change in MRI. Neurology recommended continuing Keppra at the current dose. We will treat the UTI. Noted that no urine culture is pending. follow Blood culture (2) UTI (urinary tract infection): Plan: UA with possible infection, hematuria -Follow urine culture -Ceftriaxone 2gm IV daily (3) Hyperlipidemia: Plan: -Continue Atorvastatin (4) Seizure disorder: Plan: Overall with well controlled seizures - last seizures in July of 2018. She follows with Neurology -Continue Keppra 500mg po BID -Check Keppra level (5) Hypothyroidism: Plan: Chronic. Stable -Continue Synthroid 25mcg po daily (6) Type 2 diabetes mellitus: Plan: -Hold Metformin -ISS -Goal blood sugar 110 - 140 Admission and Anticipated Discharge Date Admission Date: January 02, 2023 Subjective Patient feels well. Still confused. Review of Systems Review of Systems: All systems reviewed & are unremarkable except as noted in Subjective Physical Exam Physical Exam: General: Awake, conversant. Pleasantly confused. Heart: S1, S2/regular rate and rhythm, no murmur rubs or gallops Lungs: Clear to auscultation bilaterally. Normal effort Abdomen: Soft/nontender/nondistended. No hepatosplenomegaly Extremities: No clubbing/cyanosis. No edema Behavior: Appropriate, cooperative Results & Data Results & Data Vital Signs (Past 12 Hours) Vital Signs Temp Pulse Pulse Resp BP Pulse Ox O2 Del Method 01/03/23 10:59 36.6 C 71 15 154/84 H 97 Room Air 01/03/23 08:00 69 01/03/23 07:39 36.8 C 63 15 162/77 H 97 Room Air 01/03/23 06:38 82 154/76 H 01/03/23 01:35 55 L 01/03/23 02:02 Room Air 01/03/23 02:02 37.2 C 63 18 190/81 H 97 Room Air 01/03/23 01:36 37.7 C H 63 18 190/81 H 97 Room Air 01/03/23 00:49 70 14 01/02/23 23:45 86 Laboratory Results Abnormal lab results 01/02/23 01/02/23 01/02/23 Range/Units 18:32 18:32 19:05 RBC 3.68 L (4.20-5.40) M/uL Hgb 11.6 L (12.0-16.0) g/dl Hct 32.9 L (37.0-47.0) % MPV (9.4-12.4) fL Lymph # (Auto) 1.03 L (1.20-3.40) K/uL Sodium 135 L (136-145) mmol/L Creatinine (0.6-1.2) mg/dl BUN/Creatinine Ratio 9.7 L (10-20) Glucose 148 H (70-99(Fasting)) mg/dl POC Glucose (70-99) mg/dl Magnesium 0.9 L* (1.7-2.4) mg/dl Total Bilirubin 1.1 H (0.2-1.0) mg/dl AST 11 L (13-39) U/L Urine Appearance Turbid A (Clear) Urine pH >= 9.0 H (4.5-7.5) Urine Protein 2+ H (Negative) Urine Blood 3+ H (Negative) Urine Urobilinogen Positive H (Negative) Ur Leukocyte Esterase 2+ H (Negative) Urine WBC (Auto) >30 H (0-5) /hpf Urine RBC (Auto) >30 H (0-4) /hpf U Epithel Cells (Auto) 10-20 H (0-5) /lpf Urine Bacteria (Auto) 4+ H (Negative) 01/02/23 01/03/23 01/03/23 Range/Units 22:47 06:00 06:00 RBC 3.63 L (4.20-5.40) M/uL Hgb 11.6 L (12.0-16.0) g/dl Hct 32.3 L (37.0-47.0) % MPV 9.3 L (9.4-12.4) fL Lymph # (Auto) (1.20-3.40) K/uL Sodium (136-145) mmol/L Creatinine 0.53 L (0.6-1.2) mg/dl BUN/Creatinine Ratio (10-20) Glucose 118 H (70-99(Fasting)) mg/dl POC Glucose 103 H (70-99) mg/dl Magnesium (1.7-2.4) mg/dl Total Bilirubin (0.2-1.0) mg/dl AST 11 L (13-39) U/L Urine Appearance (Clear) Urine pH (4.5-7.5) Urine Protein (Negative) Urine Blood (Negative) Urine Urobilinogen (Negative) Ur Leukocyte Esterase (Negative) Urine WBC (Auto) (0-5) /hpf Urine RBC (Auto) (0-4) /hpf U Epithel Cells (Auto) (0-5) /lpf Urine Bacteria (Auto) (Negative) 01/03/23 Range/Units 07:43 RBC (4.20-5.40) M/uL Hgb (12.0-16.0) g/dl Hct (37.0-47.0) % MPV (9.4-12.4) fL Lymph # (Auto) (1.20-3.40) K/uL Sodium (136-145) mmol/L Creatinine (0.6-1.2) mg/dl BUN/Creatinine Ratio (10-20) Glucose (70-99(Fasting)) mg/dl POC Glucose 124 H (70-99) mg/dl Magnesium (1.7-2.4) mg/dl Total Bilirubin (0.2-1.0) mg/dl AST (13-39) U/L Urine Appearance (Clear) Urine pH (4.5-7.5) Urine Protein (Negative) Urine Blood (Negative) Urine Urobilinogen (Negative) Ur Leukocyte Esterase (Negative) Urine WBC (Auto) (0-5) /hpf Urine RBC (Auto) (0-4) /hpf U Epithel Cells (Auto) (0-5) /lpf Urine Bacteria (Auto) (Negative) PG Care Time/CCT Total # of Minutes Spent Total Time Spent with Patient: Total time spent is greater than 50% in coordination of care (as documented) at patient's floor/unit and/or counseling patient: Coding Level of Care Code 66570 SUB INP/OBS CARE 2/35MIN Diagnoses Confusion R41.0 UTI (urinary tract infection) N39.0 Hyperlipidemia E78.5 Seizure disorder G40.909 Hypothyroidism E03.9 Type 2 diabetes mellitus E11.9
[2023-01-03] MEDS: cefTRIAXone SODIUM 2,000 MG in DEXTROSE 5% 50 ML IV SCH (21:14)
[2023-01-04] MEDS: LEVOTHYROXINE SODIUM 25 MCG TABLET PO SCH (05:29)
[2023-01-04] MEDS: ATORVASTATIN 40 MG TAB PO SCH (07:58)
[2023-01-04] MEDS: ASPIRIN 81 MG ECTAB PO SCH (07:58)
[2023-01-04] MEDS: levETIRAcetam 500 MG TAB PO SCH ×2 (07:58→20:40)
[2023-01-04] MEDS: INSULIN ASPART PER UNIT CHARGE SC SCH ×4 (09:35→20:30)
[2023-01-04] MEDS: CLOTRIMAZOLE/BETAMETHASONE CR 15 GM TUBE EXT SCH ×2 (09:36→20:40)
--- NOTE | 2023-01-04 15:44 | Hospitalist Progress Note ---
Date of Service January 04, 2023 Assessment & Plan (1) Confusion: Plan: 62yo female with history of brain tumor s/p surgical excision/chemo/XRT, seizure disorder, prior CVA, DM presenting with episode of confusion that occurred today at the [facility]. Patient was driving her motorized scooter erratically, ataxic, possible syncopal event and confused. reports that she has been having increased episodes of confusion and odd behavior. Afebrile. BP is elevated Workup with normal WBC count. Mild hyponatremia with Ft=199. UA suggestive of infection CT head and MRI brain are NORMAL Neurology consulted. Neurologist thinks that the confusion is due to a UTI in the setting of her prior cognitive impairment due to brain tumor resection and radiation. No change in MRI. Neurology recommended continuing Keppra at the current dose. We will treat the UTI. Noted that no urine culture is pending. follow Blood culture There is no family member in the room who could tell me if the patient is getting better. Called Aba Chanel and left a message. Awaiting callback. (2) UTI (urinary tract infection): Plan: UA with possible infection, hematuria -Follow blood culture -Ceftriaxone 2gm IV daily (3) Hyperlipidemia: Plan: -Continue Atorvastatin (4) Seizure disorder: Plan: Overall with well controlled seizures - last seizures in July of 2018. She follows with Neurology -Continue Keppra 500mg po BID -Check Keppra level (5) Hypothyroidism: Plan: Chronic. Stable -Continue Synthroid 25mcg po daily (6) Type 2 diabetes mellitus: Plan: -Hold Metformin -ISS -Goal blood sugar 110 - 140 Admission and Anticipated Discharge Date Admission Date: January 02, 2023 Subjective Patient feels better. She thinks she is back to her usual baseline. No family member around who can verify that. Review of Systems Review of Systems: All systems reviewed & are unremarkable except as noted in Subjective Physical Exam Physical Exam: General: Awake, conversant. Still slightly but Pleasantly confused. Heart: S1, S2/regular rate and rhythm, no murmur rubs or gallops Lungs: Clear to auscultation bilaterally. Normal effort Abdomen: Soft/nontender/nondistended. No hepatosplenomegaly Extremities: No clubbing/cyanosis. No edema Behavior: Appropriate, cooperative Results & Data Results & Data Vital Signs (Past 12 Hours) Vital Signs Temp Pulse Pulse Resp BP BP Pulse Ox 01/04/23 15:31 36.4 C L 56 L 20 136/76 98 01/04/23 09:00 56 L 01/04/23 12:09 36.7 C 76 16 122/76 96 01/04/23 07:36 36.6 C 68 18 124/67 99 01/04/23 04:05 36.8 C 61 18 155/79 H 100 O2 Del Method 01/04/23 15:31 Room Air 01/04/23 09:00 01/04/23 12:09 Room Air 01/04/23 07:36 Room Air 01/04/23 04:05 Room Air PG Care Time/CCT Total # of Minutes Spent Total Time Spent with Patient: Total time spent is greater than 50% in coordination of care (as documented) at patient's floor/unit and/or counseling patient: Coding Level of Care Code 35797 SUB INP/OBS CARE 2/35MIN Diagnoses Confusion R41.0 UTI (urinary tract infection) N39.0 Hyperlipidemia E78.5 Seizure disorder G40.909 Hypothyroidism E03.9 Type 2 diabetes mellitus E11.9
[2023-01-04] MEDS: cefTRIAXone SODIUM 2,000 MG in DEXTROSE 5% 50 ML IV SCH (20:40)
[2023-01-05] MEDS: LEVOTHYROXINE SODIUM 25 MCG TABLET PO SCH (05:16)
[2023-01-05 08:40] LABS: Basophils # (auto) 0.02 K/uL (0.00-0.20); Basophils % (auto) 0.5 %; Hematocrit (blood only) 36.7 % (37.0-47.0); Hemoglobin 12.9 g/dl (12.0-16.0); Immature Granulocytes # (auto) 0.01 K/uL (0.01-0.20); Immature Granulocytes % (auto) 0.2 %; Lymphocytes # (auto) 0.87 K/uL (1.20-3.40); Lymphocytes % (auto) 21.5 %; Mean Corpuscular Hemoglobin 31.1 pg (25.0-34.0); Mean Corpuscular Hgb Conc 35.1 g/dL (32.0-36.0); Mean Corpuscular Volume 88.4 fL (80.0-100.0); Mean Platelet Volume 8.9 fL (9.4-12.4); Monocytes # (auto) 0.32 K/uL (0.11-0.59); Monocytes % (auto) 7.9 %; Neutrophils # (auto) 2.82 K/uL (1.40-6.50); Neutrophils % (auto) 69.9 %; Platelet Count 170 K/uL (130-400); RDW Coefficient of Variation 13.4 % (11.5-14.5); RDW Standard Deviation 43.4 fL (36.4-46.3); Red Blood Count 4.15 M/uL (4.20-5.40); White Blood Count 4.04 K/ul (4.8-10.8)
[2023-01-05 09:08] LABS: Calcium 9.6 mg/dl (8.6-10.3); Creatinine Clr Calc Pharmacy 91.9 ml/min; Est GFR (African American) 113.5 ml/min; Potassium 4.2 mmol/L (3.5-5.1)
[2023-01-05] MEDS: INSULIN ASPART PER UNIT CHARGE SC SCH ×4 (09:44→20:51)
[2023-01-05] MEDS: ASPIRIN 81 MG ECTAB PO SCH (10:05)
[2023-01-05] MEDS: CLOTRIMAZOLE/BETAMETHASONE CR 15 GM TUBE EXT SCH ×2 (10:05→20:05)
[2023-01-05] MEDS: ATORVASTATIN 40 MG TAB PO SCH (10:05)
[2023-01-05] MEDS: levETIRAcetam 500 MG TAB PO SCH ×2 (10:06→20:05)
--- NOTE | 2023-01-05 13:04 | Hospitalist Progress Note ---
Date of Service January 05, 2023 Assessment & Plan (1) Confusion: Plan: 62yo female with history of brain tumor s/p surgical excision/chemo/XRT, seizure disorder, prior CVA, DM presenting with episode of confusion that occurred today at the [facility]. Patient was driving her motorized scooter erratically, ataxic, possible syncopal event and confused. reports that she has been having increased episodes of confusion and odd behavior. Workup with normal WBC count. Mild hyponatremia with Rc=988. UA suggestive of infection CT head and MRI brain are NORMAL Neurology consulted. Neurologist thinks that the confusion is due to a UTI in the setting of her prior cognitive impairment due to brain tumor resection and radiation. No change in MRI. Neurology recommended continuing Keppra at the current dose. We will treat the UTI. Noted that no urine culture is pending. follow Blood culture Spoke to who thinks that the patient's mentation has improved but not back to her baseline yet. (2) UTI (urinary tract infection): Plan: UA with possible infection, hematuria -Follow blood culture -Ceftriaxone 2gm IV daily (3) Hyperlipidemia: Plan: -Continue Atorvastatin (4) Seizure disorder: Plan: Overall with well controlled seizures - last seizures in July of 2018. She follows with Neurology -Continue Keppra 500mg po BID -Check Keppra level (5) Hypothyroidism: Plan: Chronic. Stable -Continue Synthroid 25mcg po daily (6) Type 2 diabetes mellitus: Plan: -Hold Metformin -ISS -Goal blood sugar 110 - 140 Plan Consult PT/OT Admission and Anticipated Discharge Date Admission Date: January 02, 2023 Subjective patient still remains confused. Finally spoke to the who stated the patient is less confused than when she first came. However, she is not back to her baseline yet. Review of Systems Review of Systems: Unobtainable due to cognitive status Physical Exam Physical Exam: General: Awake, conversant. Still slightly but Pleasantly confused. Heart: S1, S2/regular rate and rhythm, no murmur rubs or gallops Lungs: Clear to auscultation bilaterally. Normal effort Abdomen: Soft/nontender/nondistended. No hepatosplenomegaly Extremities: No clubbing/cyanosis. No edema Behavior: Appropriate, cooperative Results & Data Results & Data Vital Signs (Past 12 Hours) Vital Signs Temp Pulse Pulse Resp BP BP Pulse Ox 01/05/23 07:29 36.6 C 69 18 122/77 95 01/05/23 07:27 68 01/05/23 04:31 36.7 C 60 18 130/77 95 O2 Del Method 01/05/23 07:29 Room Air 01/05/23 07:27 01/05/23 04:31 Room Air Laboratory Results Abnormal lab results 01/04/23 01/05/23 01/05/23 Range/Units 16:59 08:05 08:08 WBC 4.04 L (4.8-10.8) K/ul RBC 4.15 L (4.20-5.40) M/uL Hct 36.7 L (37.0-47.0) % MPV 8.9 L (9.4-12.4) fL Lymph # (Auto) 0.87 L (1.20-3.40) K/uL Sodium (136-145) mmol/L Creatinine (0.6-1.2) mg/dl Glucose (70-99(Fasting)) mg/dl POC Glucose 188 H 105 H (70-99) mg/dl 01/05/23 01/05/23 Range/Units 08:08 11:28 WBC (4.8-10.8) K/ul RBC (4.20-5.40) M/uL Hct (37.0-47.0) % MPV (9.4-12.4) fL Lymph # (Auto) (1.20-3.40) K/uL Sodium 135 L (136-145) mmol/L Creatinine 0.57 L (0.6-1.2) mg/dl Glucose 100 H (70-99(Fasting)) mg/dl POC Glucose 138 H (70-99) mg/dl PG Care Time/CCT Total # of Minutes Spent Total Time Spent with Patient: Total time spent is greater than 50% in coordination of care (as documented) at patient's floor/unit and/or counseling patient: Coding Level of Care Code 81329 SUB INP/OBS CARE 2/35MIN Diagnoses Confusion R41.0 UTI (urinary tract infection) N39.0 Hyperlipidemia E78.5 Seizure disorder G40.909 Hypothyroidism E03.9 Type 2 diabetes mellitus E11.9
[2023-01-05] MEDS ORDERED: HALOPERIDOL LACTATE 5 MG/ML 1 ML VIAL IM ONE (17:50)
[2023-01-05] MEDS: cefTRIAXone SODIUM 2,000 MG in DEXTROSE 5% 50 ML IV SCH (20:05)
[2023-01-06] MEDS: LEVOTHYROXINE SODIUM 25 MCG TABLET PO SCH (05:44)
[2023-01-06] MEDS: INSULIN ASPART PER UNIT CHARGE SC SCH ×4 (08:56→20:24)
[2023-01-06] MEDS: ASPIRIN 81 MG ECTAB PO SCH (09:23)
[2023-01-06] MEDS: levETIRAcetam 500 MG TAB PO SCH ×2 (09:23→20:07)
[2023-01-06] MEDS: ATORVASTATIN 40 MG TAB PO SCH (09:23)
[2023-01-06] MEDS: CYANOCOBALAMIN (B-12) 500 MCG TABLET PO SCH (09:53)
[2023-01-06] MEDS: CLOTRIMAZOLE/BETAMETHASONE CR 15 GM TUBE EXT SCH ×2 (09:55→20:07)
[2023-01-06 12:52] LABS: Appearance Urine Clear (Clear); Bilirubin Urine Negative (Negative); Blood Urine Negative (Negative); Color Urine Yellow; Glucose Urine UA Negative (Negative); Ketones Urine Negative (Negative); Leukocyte Esterase Urine Negative (Negative); Nitrite Urine Negative (Negative); Protein Urine Negative (Negative); Specific Gravity Urine 1.005 (1.000-1.030); Urobilinogen Urine Negative (Negative)
--- NOTE | 2023-01-06 19:26 | XRay Report ---
TWO VIEW CHEST CLINICAL HISTORY: Cough. FINDINGS: PA and lateral chest radiographs are compared to study dated 01/02/2023. The cardiomediastin al silhouette is unremarkable noting atherosclerotic calcification of the thoracic aorta. There is b ibasilar scarring/atelectasis. The lungs and pleural spaces are otherwise clear. There is no pneumoth orax. The skeletal structures are osteopenic. The bony thorax appears intact. IMPRESSION: No active disease in the chest. ACT 112: Negative or not required by law. Electronically signed by: Leonides Partida M.D. 01/06/2023 7:25 PM
--- NOTE | 2023-01-06 19:41 | Hospitalist Progress Note ---
Date of Service January 06, 2023 Assessment & Plan (1) UTI (urinary tract infection): Plan: admission u/a highly suspicious for UTI. however, urine cx was never sent. I repeated a u/a today and it is completely normal (previously 4+ bacteria on microscopy, LE, blood, protein, WBCs, etc). today is day #5 of IV rocephin. due to high suspicion she indeed had UTI will cont Rx for total 7 days. due to lack of urine culture will need to cont broad cephalosporin as clearly it worked in clearing the urine. could consider omnicef in [place] of IV rocephin to complete the course, however. (2) Acute metabolic encephalopathy: Plan: Patient with memory difficulties, confusion, and cognitive impairment for about 2 months per , but much worse in the days leading up to admission. Acute worsening can be explained by the UTI. The chronic worsening is more difficult to determine although I cannot rule out a developing dementia/cognitive process. MRI brain with chronic findings; no acute CVA, etc. Rx the UTI. B12 level is 181 - deficient - start replacement. Check a B1 level to be complete. Consider empiric Rx while awaiting the level. Recent TSH wnl. Pt's mentioned staring spells at home. I cannot rule out seizures despite the use of keppra. Certainly at risk of recurrent seizures due to the frontal-temporal encephalomalacia as seen on MRI brain from prior brain tumor. Will obtain EEG in am. Since she has not had agitated delirium by report will hold off on antipsychotic at this time. (3) Hyperlipidemia: Plan: Continue Atorvastatin (4) Seizure disorder: Plan: By report her last seizure was in July of 2018. She follows with [facility]. Continue Keppra 500mg po BID. Keppra level is pending, Obtain EEG due to staring spells as witnessed by at home. (5) Hypothyroidism: Plan: Chronic. 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 lobes seen (9) Recurrent herpes labialis: Plan: none seen on exam today (10) History of CVA (cerebrovascular accident): Plan: noted lacunar cont asa for secondary prevention (11) Esophageal reflux: Plan: add PPI (12) Chronic cough: Plan: pt really cannot tell me if her current cough is worse than baseline to that end recheck a 2-view cxr obtain COVID testing (did not have such at admission) Plan Cont PT/OT add heparin SC for DVT proph updated by phone this evening Admission and Anticipated Discharge Date Admission Date: January 02, 2023 Subjective patient resting in bed comfortably during the visit a 1:1 sitter was at bedside she reports feeling "better" sitter reports a very mild, dry, intermittent cough she denies dyspnea denies feeling feverish, chills no headache no myalgias ate well today no chest pain or abd pain no dysuria or LUTS I spoke with by phone - he reports her memory and cognition are still "off" he reports she last was well with her mentation about 2 months ago she had been having staring spells at home - he has not noted any in the last few days tele overnight - wnl Review of Systems Review of Systems: cv - no cp, no orthopnea pulm - no sputum, no dyspnea GI - no nausea/emesis Physical Exam Physical Exam: gen - NAD mouth - MMM neck - no JVD heart - RRR, s1 s2, no murmur lungs - CTA b/l; no rales, no wheeze abd - soft NT ND BS+ ext - no edema, pulses 2+ b/l skin - mild eczema on upper chest psych - awake, alert, cooperative Results & Data Results & Data Vital Signs (Past 12 Hours) Vital Signs Temp Pulse Pulse Resp BP BP Pulse Ox 01/06/23 19:00 36.5 C 73 17 135/76 95 01/06/23 17:04 84 01/06/23 15:27 36.4 C L 74 16 125/85 94 01/06/23 11:20 36.8 C 74 14 119/76 95 01/06/23 08:00 01/06/23 07:47 68 O2 Del Method 01/06/23 19:00 Room Air 01/06/23 17:04 01/06/23 15:27 Room Air 01/06/23 11:20 Room Air 01/06/23 08:00 Room Air 01/06/23 07:47 Laboratory Results Laboratory Results - last 24 hr 01/05/23 01/06/23 01/06/23 20:33 08:31 12:02 POC Glucose 144 H 111 H 151 H Urine Color Urine Appearance Urine pH Ur Specific [place] Urine Protein Urine Glucose (UA) Urine Ketones Urine Blood Urine Nitrite Urine Bilirubin Urine Urobilinogen Ur Leukocyte Esterase 01/06/23 01/06/23 12:32 16:41 POC Glucose 115 H Urine Color Yellow Urine Appearance Clear Urine pH 6.0 Ur Specific [place] 1.005 Urine Protein Negative Urine Glucose (UA) Negative Urine Ketones Negative Urine Blood Negative Urine Nitrite Negative Urine Bilirubin Negative Urine Urobilinogen Negative Ur Leukocyte Esterase Negative PG Care Time/CCT Total # of Minutes Spent Total Time Spent with Patient: Total time spent is greater than 50% in coordination of care (as documented) at patient's floor/unit and/or counseling patient: Coding Level of Care Code 02994 SUB INP/OBS CARE 3/50MIN Diagnoses UTI (urinary tract infection) N39.0 Acute metabolic encephalopathy G93.41 Hyperlipidemia E78.5 Seizure disorder G40.909 Hypothyroidism E03.9 Type 2 diabetes mellitus E11.9 B12 deficiency E53.8 Hx of brain cancer Z85.841 Recurrent herpes labialis B00.1 History of CVA (cerebrovascular accident) Z86.73 Esophageal reflux K21.9 Chronic cough R05
[2023-01-06] MEDS: cefTRIAXone SODIUM 2,000 MG in DEXTROSE 5% 50 ML IV SCH (20:07)
[2023-01-07] MEDS: LEVOTHYROXINE SODIUM 25 MCG TABLET PO SCH (05:23)
[2023-01-07 07:19] LABS: BUN Creatinine Ratio 11.5 (10-20); Calcium 9.9 mg/dl (8.6-10.3); Creatinine Clr Calc Pharmacy 86.2 ml/min; Est GFR (Non-African American) 95.8 ml/min; Potassium 4.3 mmol/L (3.5-5.1)
[2023-01-07] MEDS: ASPIRIN 81 MG ECTAB PO SCH (09:37)
[2023-01-07] MEDS: CYANOCOBALAMIN (B-12) 500 MCG TABLET PO SCH (09:37)
[2023-01-07] MEDS: ATORVASTATIN 40 MG TAB PO SCH (09:37)
[2023-01-07] MEDS: INSULIN ASPART PER UNIT CHARGE SC SCH ×4 (09:38→21:07)
[2023-01-07] MEDS: PANTOprazole 40 MG TAB PO SCH (09:38)
[2023-01-07] MEDS: CLOTRIMAZOLE/BETAMETHASONE CR 15 GM TUBE EXT SCH ×2 (09:38→20:50)
[2023-01-07] MEDS: HEPARIN SOD 5,000 UNIT/0.5 ML VIAL SQ SCH ×2 (09:38→20:47)
[2023-01-07] MEDS: levETIRAcetam 500 MG TAB PO SCH ×2 (09:38→20:48)
--- NOTE | 2023-01-07 12:55 | Electroencephalogram ---
EEG Procedure Note Date of Service January 07, 2023 Start / End Times Start Time: 1048 End Time: [address] Zimmerman History 62-year-old with history of right temporal encephalopathy Home Medication List Medication Instructions Recorded Confirmed Type aspirin 81 mg tablet,delayed 81 mg PO QAM #30 tabs 09/18/20 01/03/23 Rx release clotrimazole-betamethasone 1 1 applic topical BID #45 grams 09/03/22 01/03/23 Rx %-0.05 % topical cream omeprazole 20 mg capsule,delayed 20 mg PO QAM 09/03/22 01/03/23 History release levetiracetam 500 mg tablet 500 mg PO BID #180 tabs 09/16/22 01/03/23 Rx atorvastatin 40 mg tablet 40 mg PO DAILY #90 tabs 09/17/22 01/03/23 Rx metformin 500 mg tablet,extended 500 mg PO BID #180 tabs 09/17/22 01/03/23 Rx release 24 hr levothyroxine 25 mcg tablet 25 mcg PO QAM 09/22/22 01/03/23 History montelukast 10 mg tablet 10 mg PO DAILY #90 tabs 10/17/22 01/03/23 Rx (Singulair) potassium chloride 20 mEq 20 meq PO DAILY #90 tabs 12/29/22 01/03/23 Rx tablet,extended release Inpatient Medication List Aspirin (Aspirin 81 Mg Ectab) 81 mg PO QAM [facility] Stop: 02/02/23 08:59 Last Admin: 01/07/23 09:37 Dose: 81 mg Documented By: Admin: 01/06/23 09:23 Dose: 81 mg Documented By: Admin: 01/05/23 10:05 Dose: 81 mg Documented By: Admin: 01/04/23 07:58 Dose: 81 mg Documented By: Admin: 01/03/23 09:10 Dose: 81 mg Documented By: FARRUKH Atorvastatin Calcium (Atorvastatin 40 Mg Tab) 40 mg PO DAILY [facility] Stop: 02/02/23 08:59 Last Admin: 01/07/23 09:37 Dose: 40 mg Documented By: Admin: 01/06/23 09:23 Dose: 40 mg Documented By: Admin: 01/05/23 10:05 Dose: 40 mg Documented By: Admin: 01/04/23 07:58 Dose: 40 mg Documented By: Admin: 01/03/23 09:10 Dose: 40 mg Documented By: FARRUKH Betamethasone/Clotrimazole (Clotrimazole/Betamethasone Cr 15 Gm Tube) 1 appln EXT BID [facility] Stop: 02/02/23 08:59 Last Admin: 01/07/23 09:38 Dose: 1 appln Documented By: Admin: 01/06/23 20:07 Dose: 1 appln Documented By: Admin: 01/06/23 09:55 Dose: 1 appln Documented By: Admin: 01/05/23 20:05 Dose: 1 appln Documented By: Admin: 01/05/23 10:05 Dose: 1 appln Documented By: Admin: 01/04/23 20:40 Dose: 1 appln Documented By: Admin: 01/04/23 09:36 Dose: 1 appln Documented By: Admin: 01/03/23 21:14 Dose: 1 appln Documented By: Admin: 01/03/23 09:11 Dose: 1 appln Documented By: FARRUKH Cyanocobalamin (Cyanocobalamin (B-12) 500 Mcg Tablet) 1,000 mcg PO QAM [facility] Stop: 02/05/23 08:59 Last Admin: 01/07/23 09:37 Dose: 1,000 mcg Documented By: Admin: 01/06/23 09:53 Dose: 1,000 mcg Documented By: YOUNG Heparin Sodium (Porcine) (Heparin Sod 5,000 Unit/0.5 Ml Vial) 5,000 units SQ Q12 [facility] Stop: 02/06/23 08:59 Last Admin: 01/07/23 09:38 Dose: 5,000 units Documented By: MIGUEL Hydralazine HCl (Hydralazine Hcl 25 Mg Tab) 25 mg PO Q8H PRN PRN Reason: for blood pressure >180/110mmH Stop: 02/02/23 02:18 Last Admin: 01/03/23 02:47 Dose: 25 mg Documented By: TARIK Ceftriaxone Sodium 2,000 mg/ (Dextrose) 70 mls @ 100 mls/hr IV Q24H [facility]; Protocol Stop: 01/08/23 21:59 Last Infusion: 01/06/23 20:38 Dose: 0 mls/hr Documented By: Admin: 01/06/23 20:07 Dose: 100 mls/hr Documented By: Infusion: 01/05/23 20:46 Dose: 0 mls/hr Documented By: Admin: 01/05/23 20:05 Dose: 100 mls/hr Documented By: Infusion: 01/04/23 21:22 Dose: 0 mls/hr Documented By: Admin: 01/04/23 20:40 Dose: 100 mls/hr Documented By: Infusion: 01/03/23 23:19 Dose: 0 mls/hr Documented By: Admin: 01/03/23 21:14 Dose: 100 mls/hr Documented By: TARIK Insulin Aspart (Insulin Aspart Per Unit Charge) 0 units SC ACHS [facility] Stop: 02/02/23 07:29 Last Admin: 01/07/23 09:38 Dose: 2 units Documented By: MIGUEL Co-signed By: EVIN Admin: 01/06/23 20:24 Dose: Not Given Documented By: Admin: 01/06/23 18:06 Dose: 2 units Documented By: MARY Co-signed By: LIYAH Admin: 01/06/23 12:59 Dose: 3 units Documented By: LALITHA Co-signed By: YOUNG Admin: 01/06/23 08:56 Dose: 2 units Documented By: LALITHA Co-signed By: YOUNG Admin: 01/05/23 20:51 Dose: 1 units Documented By: TARIK Co-signed By: ANTONINO Admin: 01/05/23 18:01 Dose: 1 units Documented By: GIRISH Co-signed By: LIYAH Admin: 01/05/23 12:59 Dose: Not Given Documented By: Admin: 01/05/23 09:44 Dose: 1 units Documented By: RICK Co-signed By: MICHAEL Admin: 01/04/23 20:30 Dose: Not Given Documented By: Admin: 01/04/23 18:26 Dose: 3 units Documented By: FARRUKH Co-signed By: BELLA Admin: 01/04/23 12:59 Dose: Not Given Documented By: Admin: 01/04/23 09:35 Dose: Not Given Documented By: Admin: 01/03/23 20:32 Dose: Not Given Documented By: Admin: 01/03/23 18:55 Dose: Not Given Documented By: Admin: 01/03/23 14:23 Dose: Not Given Documented By: Admin: 01/03/23 09:11 Dose: Not Given Documented By: FARRUKH Levetiracetam (Levetiracetam 500 Mg Tab) 500 mg PO BID [facility] Stop: 02/02/23 08:59 Last Admin: 01/07/23 09:38 Dose: 500 mg Documented By: Admin: 01/06/23 20:07 Dose: 500 mg Documented By: Admin: 01/06/23 09:23 Dose: 500 mg Documented By: Admin: 01/05/23 20:05 Dose: 500 mg Documented By: Admin: 01/05/23 10:06 Dose: 500 mg Documented By: Admin: 01/04/23 20:40 Dose: 500 mg Documented By: Admin: 01/04/23 07:58 Dose: 500 mg Documented By: Admin: 01/03/23 21:14 Dose: 500 mg Documented By: Admin: 01/03/23 09:10 Dose: 500 mg Documented By: FARRUKH Levothyroxine Sodium (Levothyroxine Sodium 25 Mcg Tablet) 25 mcg PO DAILYBB [facility] Stop: 02/02/23 06:29 Last Admin: 01/07/23 05:23 Dose: 25 mcg Documented By: Admin: 01/06/23 05:44 Dose: 25 mcg Documented By: Admin: 01/05/23 05:16 Dose: 25 mcg Documented By: Admin: 01/04/23 05:29 Dose: 25 mcg Documented By: Admin: 01/03/23 06:31 Dose: 25 mcg Documented By: TARIK Pantoprazole Sodium (Pantoprazole 40 Mg Tab) 40 mg PO QAM [facility] Stop: 02/06/23 08:59 Last Admin: 01/07/23 09:38 Dose: 40 mg Documented By: MIGUEL Discontinued Medications Cephalexin HCl (Cephalexin 250 Mg Cap) 500 mg PO NOW ONE; Protocol Stop: 01/02/23 20:19 Last Admin: 01/02/23 20:45 Dose: 500 mg Documented By: GIBRANJ Haloperidol Lactate (Haloperidol Lactate 5 Mg/Ml 1 Ml Vial) 5 mg IM NOW ONE Stop: 01/05/23 17:51 Last Admin: 01/05/23 17:58 Dose: 5 mg Documented By: TLM Sodium Chloride (Nss 1000ml) 1,000 mls @ 999 mls/hr IV .Q1H1M [facility] Stop: 01/02/23 19:23 Last Infusion: 01/02/23 20:49 Dose: 0 mls/hr Documented By: Admin: 01/02/23 18:29 Dose: 999 mls/hr Documented By: KIET Ceftriaxone Sodium (Rocephin) 2,000 mg in 70 mls @ 140 mls/hr IV NOW STA Stop: 01/02/23 23:17 Last Infusion: 01/03/23 00:35 Dose: 0 mls/hr Documented By: Admin: 01/02/23 23:46 Dose: 140 mls/hr Documented By: MALLORIE Magnesium Sulfate/Dextrose (Magnesium Sulfate / D5w) 1 gm in 100 mls @ 50 mls/hr IV Q2H [facility] Stop: 01/03/23 10:29 Last Infusion: 01/03/23 12:04 Dose: 0 mls/hr Documented By: Admin: 01/03/23 09:11 Dose: 50 mls/hr Documented By: Infusion: 01/03/23 09:11 Dose: 0 mls/hr Documented By: Admin: 01/03/23 06:31 Dose: 50 mls/hr Documented By: Infusion: 01/03/23 06:31 Dose: 50 mls/hr Documented By: Admin: 01/03/23 04:39 Dose: 50 mls/hr Documented By: Infusion: 01/03/23 04:39 Dose: 50 mls/hr Documented By: Admin: 01/03/23 02:47 Dose: 50 mls/hr Documented By: TARIK Lorazepam (Lorazepam 2 Mg/1 Ml Vial) 0.5 mg IV NOW STA Stop: 01/02/23 20:50 Last Admin: 01/02/23 21:21 Dose: 0.5 mg Documented By: MALLORIE(2) Description This is a 21 electrode EEG with a single channel dedicated to limited EKG. The electrodes were placed in accordance with the International 10-20 system. Interpretation The predominant background activity consists of an irregular 8-9 Hz activity, of up to 40 mV in amplitude,seen symmetrically distributed over the posterior head regions bilaterally. It was present diffusely in all head regions. This activity attenuates some with eye-opening and other alerting procedures. Photic stimulation was performed and elicited no change in the background activity and no abnormal responses were seen. Hyperventilation was not performed. A mild amount of muscle and movement artifact activity contaminated the recording and did not hinder interpretation to any significant degree. Throughout the waking portion of the recording, no focal abnormalities, abnormal slow activity, or potentially epileptogenic discharges are seen. The patient entered the drowsy state with no further activation. In summary, this EEG was normal during wakefulness and drowsiness. No focal abnormalities, potentially epileptogenic discharges, or abnormal slow activity was seen. Clinical Correlation The absence of potentially epileptogenic activity does not exclude a seizure disorder, since interictally, EEGs can be normal. Despite her history, I did not see any focal slowing in the right temporal lobe (and no potentially epileptogenic discharges [facility] EEG Procedure Codes Indication for Procedure (1) Acute metabolic encephalopathy: Neurology Neurology: 64182 EEG include record awake & drowsy
[2023-01-07] MEDS: THIAMINE HCL 100 MG TAB PO SCH ×2 (15:39→20:49)
--- NOTE | 2023-01-07 20:41 | Hospitalist Progress Note ---
Date of Service January 07, 2023 Assessment & Plan (1) UTI (urinary tract infection): Plan: admission u/a highly suspicious for UTI. however, urine cx was never sent. repeat u/a was completely normal (previously 4+ bacteria on microscopy, LE, blood, protein, WBCs, etc). today is day #6 of IV rocephin. due to high suspicion for UTI will cont Rx for total 7 days. due to lack of urine culture will need to cont broad cephalosporin as clearly it worked in clearing the urine. could consider omnicef in [place] of IV rocephin to complete the course, however; consider changing tomorrow. (2) Acute metabolic encephalopathy: Plan: Seems to be improving. Patient with memory difficulties, confusion, and cognitive impairment for about 2 months per , but much worse in the days leading up to admission. Acute worsening can be explained by the UTI. The chronic worsening is more difficult to determine although I cannot rule out a developing dementia/cognitive process. MRI brain with chronic findings; no acute CVA, etc. Rx the UTI. B12 level is 181 - deficient - start replacement. Checked a B1 level to be complete. Place on empiric Rx thiamine 200mg BID while awaiting level. Recent TSH wnl. Pt's mentioned staring spells at home. Her keppra level was nearly undetectable - thus, very possible staring spells were seizures. EEG, however, is neg for seizure focus (but this does not rule out seizures). Certainly at risk of recurrent seizures due to the frontal-temporal encephalomalacia as seen on MRI brain from prior brain tumor. (3) Hyperlipidemia: Plan: Continue Atorvastatin (4) Seizure disorder: Plan: By report her last seizure was in July of 2018. She follows with [facility]. Continue Keppra 500mg po BID. Keppra level nearly undetectable suggesting noncompliance. Very well could have been having seizures at home since keppra really was not in her system. EEG as above. (5) Hypothyroidism: Plan: Chronic. 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 Admission and Anticipated Discharge Date Admission Date: January 02, 2023 Subjective tele stable overnight 1:1 sitter d/c she was calm and cooperative knew she was in the hospital, that it was 2022 - but didn't know day of the week denied any complaints Review of Systems Review of Systems: cv - no chest pain pulm - no dyspnea; chronic cough unchanged GI - no abd pain, no nausea; had stool this am Physical Exam Physical Exam: gen - NAD, watching TV/resting comfortably in bed mouth - MMM neck - no JVD heart - RRR, s1 s2, no murmur lungs - CTA b/l; no rales, no wheeze abd - soft NT ND BS+ ext - no edema, pulses 2+ b/l psych - awake, alert, cooperative; oriented x 2 Results & Data Results & Data Vital Signs (Past 12 Hours) Vital Signs Temp Pulse Resp BP BP Pulse Ox O2 Del Method 01/07/23 19:22 36.8 C 74 18 129/79 97 Room Air 01/07/23 15:17 36.4 C L 76 16 140/83 98 Room Air 01/07/23 12:27 36.6 C 84 16 137/86 95 Room Air Laboratory Results Laboratory Results - last 24 hr 01/03/23 01/06/23 01/07/23 06:00 Unknown 05:30 Sodium Potassium Chloride Carbon Dioxide Anion Gap BUN Creatinine Est Cr Clr Drug Dosing Est GFR ( Amer) Est GFR (Non-Af Amer) BUN/Creatinine Ratio Glucose POC Glucose Calcium Vitamin B1 Pending Levetiracetam 3.1 L Pending SARS-CoV-2 (PCR) NEGATIVE 01/07/23 01/07/23 01/07/23 05:30 08:31 12:29 Sodium 137 Potassium 4.3 Chloride 102 Carbon Dioxide 28 Anion Gap 7 BUN 7 Creatinine 0.61 Est Cr Clr Drug Dosing 86.2 Est GFR ( Amer) 111.0 Est GFR (Non-Af Amer) 95.8 BUN/Creatinine Ratio 11.5 Glucose 107 H POC Glucose 117 H 135 H Calcium 9.9 Vitamin B1 Levetiracetam SARS-CoV-2 (PCR) 01/07/23 01/07/23 16:34 20:13 Sodium Potassium Chloride Carbon Dioxide Anion Gap BUN Creatinine Est Cr Clr Drug Dosing Est GFR ( Amer) Est GFR (Non-Af Amer) BUN/Creatinine Ratio Glucose POC Glucose 131 H 118 H Calcium Vitamin B1 Levetiracetam SARS-CoV-2 (PCR) Diagnostic Findings EEG - no seizure focus PG Care Time/CCT Total # of Minutes Spent Total Time Spent with Patient: Total time spent is greater than 50% in coordination of care (as documented) at patient's floor/unit and/or counseling patient: Coding Level of Care Code 69214 SUB INP/OBS CARE 2MIN Diagnoses UTI (urinary tract infection) N39.0 Acute metabolic encephalopathy G93.41 Hyperlipidemia E78.5 Seizure disorder G40.909 Hypothyroidism E03.9 Type 2 diabetes mellitus E11.9 B12 deficiency E53.8 Hx of brain cancer Z85.841 Recurrent herpes labialis B00.1 History of CVA (cerebrovascular accident) Z86.73 Esophageal reflux K21.9 Chronic cough R05
[2023-01-07] MEDS: cefTRIAXone SODIUM 2,000 MG in DEXTROSE 5% 50 ML IV SCH (21:14)
[2023-01-08] MEDS: LEVOTHYROXINE SODIUM 25 MCG TABLET PO SCH (06:47)
[2023-01-08] MEDS: ASPIRIN 81 MG ECTAB PO SCH (09:47)
[2023-01-08] MEDS: CYANOCOBALAMIN (B-12) 500 MCG TABLET PO SCH (09:47)
[2023-01-08] MEDS: ATORVASTATIN 40 MG TAB PO SCH (09:47)
[2023-01-08] MEDS: PANTOprazole 40 MG TAB PO SCH (09:47)
[2023-01-08] MEDS: INSULIN ASPART PER UNIT CHARGE SC SCH ×4 (09:48→21:16)
[2023-01-08] MEDS: levETIRAcetam 500 MG TAB PO SCH ×2 (09:48→21:08)
[2023-01-08] MEDS: HEPARIN SOD 5,000 UNIT/0.5 ML VIAL SQ SCH ×2 (09:48→21:07)
[2023-01-08] MEDS: CLOTRIMAZOLE/BETAMETHASONE CR 15 GM TUBE EXT SCH ×2 (09:49→22:46)
[2023-01-08] MEDS: THIAMINE HCL 100 MG TAB PO SCH ×2 (09:56→21:09)
[2023-01-08 15:26] LABS: Base Excess VBG 2.5 mEq/L; HCO3 VBG 29 mmol/L; Oxygen Saturation VBG < 60.0 %; PCO2 VBG 53 mmHg (38-50); PO2 VBG 17 mmHg; pH VBG 7.35 (7.36-7.41)
[2023-01-08 15:33] LABS: Basophils # (auto) 0.03 K/uL (0.00-0.20); Basophils % (auto) 0.6 %; Hematocrit (blood only) 39.4 % (37.0-47.0); Hemoglobin 13.9 g/dl (12.0-16.0); Immature Granulocytes # (auto) 0.02 K/uL (0.01-0.20); Immature Granulocytes % (auto) 0.4 %; Lymphocytes # (auto) 1.08 K/uL (1.20-3.40); Lymphocytes % (auto) 20.7 %; Mean Corpuscular Hemoglobin 31.2 pg (25.0-34.0); Mean Corpuscular Hgb Conc 35.3 g/dL (32.0-36.0); Mean Corpuscular Volume 88.5 fL (80.0-100.0); Monocytes # (auto) 0.42 K/uL (0.11-0.59); Neutrophils # (auto) 3.67 K/uL (1.40-6.50); Neutrophils % (auto) 70.3 %; Platelet Count 206 K/uL (130-400); RDW Coefficient of Variation 13.8 % (11.5-14.5); RDW Standard Deviation 44.2 fL (36.4-46.3); Red Blood Count 4.45 M/uL (4.20-5.40); White Blood Count 5.22 K/ul (4.8-10.8)
[2023-01-08 15:53] LABS: Anion Gap 4 (3-11); BUN Creatinine Ratio 13.3 (10-20); Blood Urea Nitrogen 10 mg/dl (6-23); C Reactive Protein < 0.50 mg/dl (0-0.5); Calcium 10.2 mg/dl (8.6-10.3); Carbon Dioxide 28 mmol/L (21-32); Chloride 100 mmol/L (98-107); Creatinine Clr Calc Pharmacy 69.2 ml/min; Est GFR (African American) 97.6 ml/min; Est GFR (Non-African American) 84.2 ml/min; Glucose 121 mg/dl (70-99(Fasting)); Magnesium 1.9 mg/dl (1.7-2.4); Potassium 4.2 mmol/L (3.5-5.1); Sodium 132 mmol/L (136-145)
--- NOTE | 2023-01-08 16:05 | CT Scan Report ---
CT SCAN OF THE BRAIN WITHOUT IV CONTRAST CLINICAL HISTORY: Fall. Change in mental status. COMPARISON STUDY: CT and MRI of the brain dated 01/02/2023. TECHNIQUE: Unenhanced axial CT scan of the brain is performed from the vertex to the skull base. A do se lowering technique was utilized adhering to the principles of ALARA. CT DOSE: 547.75 mGy.cm FINDINGS: Brain parenchyma: Right temporal encephalomalacia is consistent with a site of previous mass resectio n. There are age-related involutional changes noting mild subcortical and periventricular microangio pathic change. A chronic lacunar infarct is noted in the left thalamus. There is no hemorrhage, mass effect, or evidence of acute territorial ischemia by CT criteria. Humphries-white matter differentiation i s preserved. No extra-axial fluid collection is seen. Calcifications in the gary are unchanged from p revious. Ventricles, sulci, cisterns: Prominent secondary to involutional change. Intracranial vasculature: There is atherosclerotic calcification of the cavernous carotid and vertebr al arteries. Calvarium: There is no depressed calvarial fracture. There is postoperative change from previous righ t temporal craniotomy. No destructive calvarial lesion is seen. Heterogeneous change in the calvarium at the skull base may be related to previous radiation treatment. Sinuses and mastoids: The visualized paranasal sinuses are clear. There are bilateral mastoid effusio ns, right larger than left. Orbits: The bony orbits are grossly intact. There is a right ocular lens implant. IMPRESSION: 1. There is no hemorrhage, mass effect, or evidence of acute territorial ischemia by CT criteria. 2. Postoperative change and right temporal encephalomalacia as above. This is similar to previous. ACT 112: Negative or not required by law. Electronically signed by: Leonides Partida M.D. 01/08/2023 4:03 PM
--- NOTE | 2023-01-08 20:59 | Hospitalist Progress Note ---
Date of Service January 08, 2023 Assessment & Plan (1) Slurred speech: Plan: I had not noted this earlier this week, but the speech was without question slurred today. Interestingly the pt's states that this has been a chronic problem. Part of the slurriness seemed to be due in part to inability to clear secretions from the posterior throat/larynx. Recent MRI brain without acute stroke. Due to the worsening speech, swallowing, and her overall well-being will plan to repeat an MRI brain today - will perform with contrast. If no acute CVA or other acute findings - etiology? Subclinical seizures followed by slurred speech/altered mental status? Due to some metabolic disturbance (has mildly low Na, but doubt this is contributing)? other? (2) Dysphagia: Plan: Had been swallowing ok up until today. Rather acute worsening. Etiology?? Re-check MRI brain with contrast. NPO. IV fluids. Speech for swallow eval. (3) UTI (urinary tract infection): Plan: admission u/a highly suspicious for UTI. however, urine cx was never sent. repeat u/a was completely normal (previously 4+ bacteria on microscopy, LE, blood, protein, WBCs, etc). today is day #7 of abx. can change rocephin to omnicef. cbc is wnl today. crp is 0. can d/c abx tomorrow. (4) Acute metabolic encephalopathy: Plan: Had been improving then . Patient with memory difficulties, confusion, and cognitive impairment for about 2 months per , but much worse in the days leading up to admission. Acute worsening can be explained by the UTI. The chronic worsening is more difficult to determine although I cannot rule out a developing dementia/cognitive process. MRI brain a few days ago with chronic findings; no acute CVA, etc. Planning to repeat the MRI brain today. Rx the UTI. B12 level is 181 - deficient - start replacement. Checked a B1 level to be complete. Place on empiric Rx thiamine 200mg BID while awaiting level. Recent TSH wnl. Pt's mentioned staring spells at home. Her keppra level was nearly undetectable - thus, very likely the staring spells were seizures. EEG, however, is neg for seizure focus (but this does not rule out seizures). Certainly at risk of recurrent seizures due to the frontal-temporal encephalomalacia as seen on MRI brain from prior brain tumor. If repeat MRI brain is negative and nothing else shows up - is she having recurrent, subclinical seizures?? (5) Hyperlipidemia: Plan: Continue Atorvastatin (6) Seizure disorder: Plan: By report her last seizure was in July of 2018. She follows with [facility]. Continue Keppra 500mg po BID. Keppra level nearly undetectable suggesting noncompliance. Very well could have been having seizures at home since keppra really was not in her system. EEG as above. Following today's events I checked a prolactin level and it returned normal. (7) Hypothyroidism: Plan: Chronic. 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 of right frontal-temporal lobes seen (11) Recurrent herpes labialis: Plan: none seen on exam no signs of meningitis/encephalitis (12) History of CVA (cerebrovascular accident): Plan: noted lacunar - left thalamus cont asa for secondary prevention (13) Esophageal reflux: Plan: cont PPI (14) Chronic cough: Plan: pt really cannot tell me if her current cough is worse than baseline to that end rechecked a 2-view cxr - negative for infiltrates COVID negative suspect chronic post-nasal drip vs GERD vs other Plan Cont PT/OT heparin SC for DVT proph updated at bedside today await MRI brain Admission and Anticipated Discharge Date Admission Date: January 02, 2023 Subjective saw patient twice today during rounds patient was sitting in chair her voice/speech was slurred she sounded like she had sputum in her throat and couldn't clear it she denied any concerns or complaints wants to go home she knew she was in the hospital and that it was 2022 however, thought it was July I spoke with Ms Chanel about her near-undetectable keppra level she reports she manages all of her meds she did eat breakfast this am shortly after my first visit with her I was notified by staff that she had attempted to get out of bed and fell to the ground striking her knees no syncope per staff during my 2nd visit she was still sitting in the chair but had changed from her gown into regular clothes her was now at bedside he reported that her slurry speech had been present "for a long time" he mentioned that some days at home he "can't understand her" Review of Systems Review of Systems: gen - no fevers cv - no chest pain pulm - no dyspnea GI - no abd pain ; staff report she has had difficulty swallowing today and that she is pocketing her food Physical Exam Physical Exam: gen - NAD, resting in the chair; speech indeed is slurry today mouth - MMM neck - no JVD heart - RRR, s1 s2, no murmur lungs - CTA b/l; no rales, no wheeze abd - soft NT ND BS+ ext - no edema, pulses 2+ b/l psych - awake, alert, oriented x 2 neuro - strength 5/5 x 4 exts ; no asterixis musculo - passive ROM of either hip without pain; no pain over either knee with passive ROM; no other bony injuries Results & Data Results & Data Vital Signs (Past 12 Hours) Vital Signs Temp Pulse Resp BP BP Pulse Ox O2 Del Method 01/08/23 19:59 36.5 C 80 18 149/82 H 95 Room Air 01/08/23 17:14 36.3 C L 75 18 127/81 99 Room Air 01/08/23 11:51 36.7 C 90 18 120/84 95 Room Air Laboratory Results Laboratory Results - last 24 hr 01/08/23 01/08/23 01/08/23 07:59 12:35 15:09 WBC 5.22 RBC 4.45 Hgb 13.9 Hct 39.4 MCV 88.5 MCH 31.2 MCHC 35.3 RDW Std Deviation 44.2 RDW Coeff of Juliet 13.8 Plt Count 206 MPV 9.0 L Immature Gran % (Auto) 0.4 Neut % (Auto) 70.3 Lymph % (Auto) 20.7 [place] % (Auto) 8.0 Eos % (Auto) 0.0 Baso % (Auto) 0.6 Neut # (Auto) 3.67 Lymph # (Auto) 1.08 L [place] # (Auto) 0.42 Eos # (Auto) 0.00 Baso # (Auto) 0.03 Immature Gran # (Auto) 0.02 VBG pH VBG pCO2 VBG pO2 VBG HCO3 VBG O2 Saturation VBG Base Excess Sodium Potassium Chloride Carbon Dioxide Anion Gap BUN Creatinine Est Cr Clr Drug Dosing Est GFR ( Amer) Est GFR (Non-Af Amer) BUN/Creatinine Ratio Glucose POC Glucose 107 H 108 H Calcium Magnesium C-Reactive Protein Prolactin 01/08/23 01/08/23 01/08/23 15:09 15:09 15:09 WBC RBC Hgb Hct MCV MCH MCHC RDW Std Deviation RDW Coeff of Juliet Plt Count MPV Immature Gran % (Auto) Neut % (Auto) Lymph % (Auto) [place] % (Auto) Eos % (Auto) Baso % (Auto) Neut # (Auto) Lymph # (Auto) [place] # (Auto) Eos # (Auto) Baso # (Auto) Immature Gran # (Auto) VBG pH 7.35 L VBG pCO2 53 H VBG pO2 17 VBG HCO3 29 VBG O2 Saturation < 60.0 VBG Base Excess 2.5 Sodium 132 L Potassium 4.2 Chloride 100 Carbon Dioxide 28 Anion Gap 4 BUN 10 Creatinine 0.75 Est Cr Clr Drug Dosing 69.2 Est GFR ( Amer) 97.6 Est GFR (Non-Af Amer) 84.2 BUN/Creatinine Ratio 13.3 Glucose 121 H POC Glucose Calcium 10.2 Magnesium 1.9 C-Reactive Protein < 0.50 Prolactin 17.29 01/08/23 17:12 WBC RBC Hgb Hct MCV MCH MCHC RDW Std Deviation RDW Coeff of Juliet Plt Count MPV Immature Gran % (Auto) Neut % (Auto) Lymph % (Auto) [place] % (Auto) Eos % (Auto) Baso % (Auto) Neut # (Auto) Lymph # (Auto) [place] # (Auto) Eos # (Auto) Baso # (Auto) Immature Gran # (Auto) VBG pH VBG pCO2 VBG pO2 VBG HCO3 VBG O2 Saturation VBG Base Excess Sodium Potassium Chloride Carbon Dioxide Anion Gap BUN Creatinine Est Cr Clr Drug Dosing Est GFR ( Amer) Est GFR (Non-Af Amer) BUN/Creatinine Ratio Glucose POC Glucose 101 H Calcium Magnesium C-Reactive Protein Prolactin PG Care Time/CCT Total # of Minutes Spent Total Time Spent with Patient: Total time spent is greater than 50% in coordination of care (as documented) at patient's floor/unit and/or counseling patient: Coding Level of Care Code 78718 SUB INP/OBS CARE 3/50MIN Diagnoses Slurred speech R47.81 Dysphagia R13.10 UTI (urinary tract infection) N39.0 Acute metabolic encephalopathy G93.41 Hyperlipidemia E78.5 Seizure disorder G40.909 Hypothyroidism E03.9 Type 2 diabetes mellitus E11.9 B12 deficiency E53.8 Hx of brain cancer Z85.841 Recurrent herpes labialis B00.1 History of CVA (cerebrovascular accident) Z86.73 Esophageal reflux K21.9 Chronic cough R05
[2023-01-08] MEDS: SODIUM CHLORIDE 0.9% 1,000 ML IV SCH (21:03)
[2023-01-08] MEDS: CEFDINIR 300 MG CAP PO SCH (21:07)
[2023-01-08] MEDS: MELATONIN 3 MG TAB PO SCH (21:17)
[2023-01-08] MEDS ORDERED: GADOBUTROL 65ML VIAL IV ONE (22:22)
--- NOTE | 2023-01-08 22:39 | Magnetic Resonance Report ---
MRI OF THE BRAIN COMBO CLINICAL HISTORY: Dysphagia. Falls. COMPARISON STUDY: CT of the brain dated 01/08/2023. MRI of the brain dated 01/02/2023. TECHNIQUE: MRI of the brain was performed utilizing various T1 and T2-weighted sequences in the axial , sagittal, and coronal planes. Contrast-enhanced sequences were acquired following the administratio n of 7.5 cc of Gadavist. FINDINGS: Brain parenchyma: There is age-related involutional change noted in mild subcortical and periventricu lar microangiopathic disease. Right temporal encephalomalacia is consistent with a remote insult. The re is no hemorrhage or mass effect. A chronic lacunar infarct is noted in the left thalamus. There is no restricted diffusion typical for acute ischemia. No enhancing mass lesion is identified on the po stcontrast images. Humphries-white matter differentiation is preserved. No extra-axial fluid collection is seen. The cerebellar tonsils are normal in configuration. Ventricles, sulci, and cisterns: Prominent secondary to involutional change. Pituitary and sella: Partially empty sella is incidentally noted. Intracranial vasculature: Normal flow voids are maintained at the skull base. Orbits: The bony orbits are grossly intact. Orbital contents are normal in appearance noting a right ocular lens implant. Sinuses and mastoids: There are bilateral mastoid effusions, right larger than left. Trace mucosal th ickening is noted in the ethmoid and right sphenoid sinuses. The remaining paranasal sinuses are ana r. Calvarium: There is postsurgical change from right-sided craniotomy. No destructive calvarial lesion is seen. Cervical cord: Partially visualized cervical spinal cord is normal in morphology and signal intensity . IMPRESSION: Chronic findings as above with no acute intracranial abnormality. No significant change f rom 01/02/2023. ACT 112: Negative or not required by law. Electronically signed by: Leonides Partida M.D. 01/08/2023 10:37 PM
[2023-01-09] MEDS: LEVOTHYROXINE SODIUM 25 MCG TABLET PO SCH (05:37)
[2023-01-09] MEDS: INSULIN ASPART PER UNIT CHARGE SC SCH ×4 (08:03→20:44)
[2023-01-09] MEDS ORDERED: Nursing to Pharmacy Communication SCH (09:15)
[2023-01-09] MEDS: CLOTRIMAZOLE/BETAMETHASONE CR 15 GM TUBE EXT SCH ×2 (10:14→20:45)
[2023-01-09] MEDS: THIAMINE HCL 100 MG TAB PO SCH ×2 (10:15→20:45)
[2023-01-09] MEDS: CYANOCOBALAMIN (B-12) 500 MCG TABLET PO SCH (10:15)
[2023-01-09] MEDS: hydrALAZINE HCL 25 MG TAB PO PRN (10:15)
[2023-01-09] MEDS: ATORVASTATIN 40 MG TAB PO SCH (10:15)
[2023-01-09] MEDS: CEFDINIR 300 MG CAP PO SCH ×2 (10:16→20:46)
[2023-01-09] MEDS: HEPARIN SOD 5,000 UNIT/0.5 ML VIAL SQ SCH ×2 (10:16→20:45)
[2023-01-09] MEDS: ASPIRIN 81 MG ECTAB PO SCH (10:16)
[2023-01-09] MEDS: levETIRAcetam 500 MG TAB PO SCH ×2 (10:16→20:45)
[2023-01-09] MEDS: PANTOprazole 40 MG TAB PO SCH (10:17)
[2023-01-09] MEDS: SODIUM CHLORIDE 0.9% 1,000 ML IV SCH (12:09)
--- NOTE | 2023-01-09 13:39 | Hospitalist Progress Note ---
Date of Service January 09, 2023 Assessment & Plan (1) Acute metabolic encephalopathy: Plan: Patient with memory difficulties, confusion, and cognitive impairment for about 2 months per , but much worse in the days leading up to admission. Acute worsening likely from UTI. The chronic worsening is more difficult to determine although I cannot rule out a developing dementia/cognitive process. MRI brain x 2 this admission without acute findings. Pt's mentioned staring spells at home. Her keppra level was nearly undetectable - thus, very likely the staring spells were seizures. EEG, however, is neg for seizure focus (but this does not rule out seizures of course). Certainly at risk of recurrent seizures due to the right sided frontal-temporal encephalomalacia as seen on MRI brain from prior brain tumor. 01/08 - patient acutely had worsening of her dysarthria, worsening confusion, and difficulty swallowing. marked change from 01/07. again MRI brain 01/08 negative. My suspicion is that she is having subclinical seizures and perhaps her post- ictal state is what we are seeing today. Interestingly the states that what we are currently seeing is very typical for her at home. Spoke with Dr Higgins - [facility] [place] [place] [facility] - who will see the patient tomorrow. He recommends adding depakote to the keppra as depakote is a better anti-seizure med for seizures due to temporal lobe abnormalities. thus, will give valproate IV 1gm x 1 now. repeat labs today largely unremarkable except for mild hyponatremia which likely does not explain current clinical state. u/a unremarkable - cx sent once again. cxr again unremarkable. re-eval tomorrow. (2) Seizure disorder: Plan: By report her last seizure was in July of 2018. She follows with [facility] [place] [place] [facility]. Keppra level nearly undetectable suggesting noncompliance. Suspect she was having recurrent seizures at home based on the 's description of her behaviors. EEG as above. see #1 above. (3) Slurred speech: Plan: Neuro notes from the office document baseline dysarthria from her prior CVA. The dysarthria has been worse the last 2 days. Repeat MRI brain w/ and w/o contrast -- negative. See #1 discussion above. (4) Dysphagia: Plan: Had been swallowing ok this admission up until yesterday. Rather acute worsening. See #1 above. Suspect swallowing was worse in the post-ictal setting?? no other infectious or metabolic abnormalities seen to account for the dysphagia. MRI brain neg for acute findings 01/08. Appreciate speech therapy consult. (5) UTI (urinary tract infection): Plan: admission u/a highly suspicious for UTI. however, urine cx was never sent. repeat u/a was completely normal (previously 4+ bacteria on microscopy, LE, blood, protein, WBCs, etc). completed 7 days of IV rocephin/cefdinir will stop abx repeat u/a today largely unremarkable culture sent to be safe (6) Hyperlipidemia: Plan: Continue Atorvastatin (7) Hypothyroidism: Plan: Chronic. Stable Continue Synthroid 25mcg po daily TSH 2.6 (8) Type 2 diabetes mellitus: Plan: a1c 5.8% in September 2022 this is more c/w pre-DM was only taking metformin at home pre-admission cont to hold (9) B12 deficiency: Plan: level 181 started oral B12 1000mcg daily plan at least 6 months of Rx checked a B1 level as well; thiamine BID empirically (10) Hx of brain cancer: Plan: temporal glioma on right s/p resection encephalomalacia of right frontal-temporal lobes seen see #1 above (11) Recurrent herpes labialis: Plan: none seen on exam no signs of meningitis/encephalitis (12) History of CVA (cerebrovascular accident): Plan: noted lacunar - left thalamus cont asa for secondary prevention MRI brain x 2 this admission NEG for acute CVA (13) Esophageal reflux: Plan: cont PPI (14) Chronic cough: Plan: multiple cxr's this admission neg for infiltrates o2 sats wnl microaspiration leading to cough? GERD? other? Plan Cont PT/OT heparin SC for DVT proph updated at bedside yesterday neuro re-eval tomorrow Admission and Anticipated Discharge Date Admission Date: January 02, 2023 Subjective tele overnight wnl no seizures reported by staff she continues to have issues w/ swallowing and pocketing her speech continues to be more dysarthric than earlier in the week during the visit she was resting comfortably in bed denied all of the following - fevers, chills, headache, sore throat, nasal congestion, worsening cough, dyspnea, chest pain, abd pain, nausea, emesis, diarrhea, dysuria, foul-smelling urine, change in vision, rash asks "when can I go home?" Review of Systems Review of Systems: see HPI Physical Exam Physical Exam: gen - NAD, speech remains dysarthric, VERY tired today but does follow commands eyes - mild ptosis R eye; ?6nerve palsy on right? mouth - MMM neck - no JVD, no meningismus, no rigidity heart - RRR, s1 s2, no murmur lungs - CTA b/l; no rales, no wheeze abd - soft NT ND BS+ ext - no edema, pulses 2+ b/l psych - awake but drowsy, thinks it is July neuro - strength 5/5 x 4 exts; eye findings as above; rest of fisherman helper are intact; gait not tested Results & Data Results & Data Vital Signs (Past 12 Hours) Vital Signs Temp Pulse Pulse Resp BP Pulse Ox O2 Del Method 01/09/23 11:35 37.2 C 84 16 154/77 H 93 Room Air 01/09/23 10:52 Room Air 01/09/23 07:49 37.2 C 90 16 128/64 93 Room Air 01/09/23 07:19 63 Laboratory Results Laboratory Results - last 24 hr 01/09/23 01/09/23 01/09/23 11:44 14:35 14:35 WBC 6.53 RBC 3.92 L Hgb 12.3 Hct 34.0 L MCV 86.7 MCH 31.4 MCHC 36.2 H RDW Std Deviation 43.4 RDW Coeff of Juliet 13.7 Plt Count 188 MPV 9.2 L Immature Gran % (Auto) 0.3 Neut % (Auto) 73.3 Lymph % (Auto) 19.1 [place] % (Auto) 7.0 Eos % (Auto) 0.0 Baso % (Auto) 0.3 Neut # (Auto) 4.78 Lymph # (Auto) 1.25 [place] # (Auto) 0.46 Eos # (Auto) 0.00 Baso # (Auto) 0.02 Immature Gran # (Auto) 0.02 VBG pH VBG pCO2 VBG pO2 VBG HCO3 VBG O2 Saturation VBG Base Excess Sodium 131 L Potassium 4.1 Chloride 100 Carbon Dioxide 24 Anion Gap 7 BUN 12 Creatinine 0.59 L Est Cr Clr Drug Dosing 88.6 Est GFR ( Amer) 112.3 Est GFR (Non-Af Amer) 96.9 BUN/Creatinine Ratio 20.3 H Glucose 157 H POC Glucose 119 H Calcium 9.2 Total Bilirubin 0.8 AST 18 ALT 20 Alkaline Phosphatase 53 Total Protein 6.1 Albumin 3.8 Globulin 2.3 L Albumin/Globulin Ratio 1.7 Procalcitonin Urine Color Urine Appearance Urine pH Ur Specific [place] Urine Protein Urine Glucose (UA) Urine Ketones Urine Blood Urine Nitrite Urine Bilirubin Urine Urobilinogen Ur Leukocyte Esterase Urine WBC (Auto) Urine RBC (Auto) U Hyaline Cast (Auto) U Epithel Cells (Auto) Urine Bacteria (Auto) Urine Osmolality Ur Random Sodium 01/09/23 01/09/23 01/09/23 14:35 14:35 15:57 WBC RBC Hgb Hct MCV MCH MCHC RDW Std Deviation RDW Coeff of Juliet Plt Count MPV Immature Gran % (Auto) Neut % (Auto) Lymph % (Auto) [place] % (Auto) Eos % (Auto) Baso % (Auto) Neut # (Auto) Lymph # (Auto) [place] # (Auto) Eos # (Auto) Baso # (Auto) Immature Gran # (Auto) VBG pH 7.46 H VBG pCO2 36 L VBG pO2 119 VBG HCO3 26 VBG O2 Saturation 99.3 VBG Base Excess 2.0 Sodium Potassium Chloride Carbon Dioxide Anion Gap BUN Creatinine Est Cr Clr Drug Dosing Est GFR ( Amer) Est GFR (Non-Af Amer) BUN/Creatinine Ratio Glucose POC Glucose 123 H Calcium Total Bilirubin AST ALT Alkaline Phosphatase Total Protein Albumin Globulin Albumin/Globulin Ratio Procalcitonin < 0.05 Urine Color Urine Appearance Urine pH Ur Specific [place] Urine Protein Urine Glucose (UA) Urine Ketones Urine Blood Urine Nitrite Urine Bilirubin Urine Urobilinogen Ur Leukocyte Esterase Urine WBC (Auto) Urine RBC (Auto) U Hyaline Cast (Auto) U Epithel Cells (Auto) Urine Bacteria (Auto) Urine Osmolality Ur Random Sodium 01/09/23 01/09/23 01/09/23 20:17 Unknown Unknown WBC RBC Hgb Hct MCV MCH MCHC RDW Std Deviation RDW Coeff of Juliet Plt Count MPV Immature Gran % (Auto) Neut % (Auto) Lymph % (Auto) [place] % (Auto) Eos % (Auto) Baso % (Auto) Neut # (Auto) Lymph # (Auto) [place] # (Auto) Eos # (Auto) Baso # (Auto) Immature Gran # (Auto) VBG pH VBG pCO2 VBG pO2 VBG HCO3 VBG O2 Saturation VBG Base Excess Sodium Potassium Chloride Carbon Dioxide Anion Gap BUN Creatinine Est Cr Clr Drug Dosing Est GFR ( Amer) Est GFR (Non-Af Amer) BUN/Creatinine Ratio Glucose POC Glucose 117 H Calcium Total Bilirubin AST ALT Alkaline Phosphatase Total Protein Albumin Globulin Albumin/Globulin Ratio Procalcitonin Urine Color Urine Appearance Urine pH Ur Specific [place] Urine Protein Urine Glucose (UA) Urine Ketones Urine Blood Urine Nitrite Urine Bilirubin Urine Urobilinogen Ur Leukocyte Esterase Urine WBC (Auto) Urine RBC (Auto) U Hyaline Cast (Auto) U Epithel Cells (Auto) Urine Bacteria (Auto) Urine Osmolality 257 L Ur Random Sodium 55 01/09/23 Unknown WBC RBC Hgb Hct MCV MCH MCHC RDW Std Deviation RDW Coeff of Juliet Plt Count MPV Immature Gran % (Auto) Neut % (Auto) Lymph % (Auto) [place] % (Auto) Eos % (Auto) Baso % (Auto) Neut # (Auto) Lymph # (Auto) [place] # (Auto) Eos # (Auto) Baso # (Auto) Immature Gran # (Auto) VBG pH VBG pCO2 VBG pO2 VBG HCO3 VBG O2 Saturation VBG Base Excess Sodium Potassium Chloride Carbon Dioxide Anion Gap BUN Creatinine Est Cr Clr Drug Dosing Est GFR ( Amer) Est GFR (Non-Af Amer) BUN/Creatinine Ratio Glucose POC Glucose Calcium Total Bilirubin AST ALT Alkaline Phosphatase Total Protein Albumin Globulin Albumin/Globulin Ratio Procalcitonin Urine Color Yellow Urine Appearance Clear Urine pH 6.0 Ur Specific [place] 1.008 Urine Protein Negative Urine Glucose (UA) Negative Urine Ketones Negative Urine Blood Negative Urine Nitrite Negative Urine Bilirubin Negative Urine Urobilinogen Negative Ur Leukocyte Esterase Trace H Urine WBC (Auto) 1-5 Urine RBC (Auto) 0-4 U Hyaline Cast (Auto) 0 U Epithel Cells (Auto) 20-30 H Urine Bacteria (Auto) Negative Urine Osmolality Ur Random Sodium Diagnostic Findings MRI brain - 01/08 - CLINICAL HISTORY: Dysphagia. Falls. COMPARISON STUDY: CT of the brain dated 01/08/2023. MRI of the brain dated 01/02/2023. TECHNIQUE: MRI of the brain was performed utilizing various T1 and T2-weighted sequences in the axial, sagittal, and coronal planes. Contrast-enhanced sequences were acquired following the administration of 7.5 cc of Gadavist. FINDINGS: Brain parenchyma: There is age-related involutional change noted in mild subcortical and periventricular microangiopathic disease. Right temporal encephalomalacia is consistent with a remote insult. There is no hemorrhage or mass effect. A chronic lacunar infarct is noted in the left thalamus. There is no restricted diffusion typical for acute ischemia. No enhancing mass lesion is identified on the postcontrast images. Humphries-white matter differentiation is preserved. No extra-axial fluid collection is seen. The cerebellar tonsils are normal in configuration. Ventricles, sulci, and cisterns: Prominent secondary to involutional change. Pituitary and sella: Partially empty sella is incidentally noted. Intracranial vasculature: Normal flow voids are maintained at the skull base. Orbits: The bony orbits are grossly intact. Orbital contents are normal in appearance noting a right ocular lens implant. Sinuses and mastoids: There are bilateral mastoid effusions, right larger than left. Trace mucosal thickening is noted in the ethmoid and right sphenoid sinuses. The remaining paranasal sinuses are clear. Calvarium: There is postsurgical change from right-sided craniotomy. No destructive calvarial lesion is seen. Cervical cord: Partially visualized cervical spinal cord is normal in morphology and signal intensity. IMPRESSION: Chronic findings as above with no acute intracranial abnormality. No significant change from 01/02/2023. ACT 112: Negative or not required by law. Electronically signed by: Leonides Partida M.D. 01/08/2023 10:37 PM Chest X-Ray 01/09/23 13:40 XR chest 1V portable CLINICAL HISTORY: lethargy, cough, ?developing pneumonia? COMPARISON STUDY: Chest CT July 23, 2020. Chest radiograph January 06, 2023. FINDINGS: There is no pneumothorax or pleural effusion. Linear bibasilar densities favor atelectasis. There is no consolidation to suggest pneumonia. Cardiomegaly is unchanged. No evidence for pulmonary edema. IMPRESSION: No acute cardiopulmonary findings. ACT 112: Negative or not required by law. Electronically signed by: Kevin Morton M.D. 01/09/2023 2:22 PM PG Care Time/CCT Total # of Minutes Spent Total Time Spent with Patient: Total time spent is greater than 50% in coordination of care (as documented) at patient's floor/unit and/or counseling patient: Coding Level of Care Code 58475 SUB INP/OBS CARE 3/50MIN Diagnoses Acute metabolic encephalopathy G93.41 Seizure disorder G40.909 Slurred speech R47.81 Dysphagia R13.10 UTI (urinary tract infection) N39.0 Hyperlipidemia E78.5 Hypothyroidism E03.9 Type 2 diabetes mellitus E11.9 B12 deficiency E53.8 Hx of brain cancer Z85.841 Recurrent herpes labialis B00.1 History of CVA (cerebrovascular accident) Z86.73 Esophageal reflux K21.9 Chronic cough R05
--- NOTE | 2023-01-09 14:23 | XRay Report ---
XR chest 1V portable CLINICAL HISTORY: lethargy, cough, ?developing pneumonia? COMPARISON STUDY: Chest CT July 23, 2020. Chest radiograph January 06, 2023. FINDINGS: There is no pneumothorax or pleural effusion. Linear bibasilar densities favor atelectasis. There is no consolidation to suggest pneumonia. Cardiomegaly is unchanged. No evidence for pulmonary edema. IMPRESSION: No acute cardiopulmonary findings. ACT 112: Negative or not required by law. Electronically signed by: Kevin Morton M.D. 01/09/2023 2:22 PM
[2023-01-09 15:00] LABS: HCO3 VBG 26 mmol/L; Oxygen Saturation VBG 99.3 %; PCO2 VBG 36 mmHg (38-50); PO2 VBG 119 mmHg; pH VBG 7.46 (7.36-7.41)
[2023-01-09 15:04] LABS: Basophils # (auto) 0.02 K/uL (0.00-0.20); Basophils % (auto) 0.3 %; Hemoglobin 12.3 g/dl (12.0-16.0); Immature Granulocytes # (auto) 0.02 K/uL (0.01-0.20); Immature Granulocytes % (auto) 0.3 %; Lymphocytes # (auto) 1.25 K/uL (1.20-3.40); Lymphocytes % (auto) 19.1 %; Mean Corpuscular Hemoglobin 31.4 pg (25.0-34.0); Mean Corpuscular Hgb Conc 36.2 g/dL (32.0-36.0); Mean Corpuscular Volume 86.7 fL (80.0-100.0); Mean Platelet Volume 9.2 fL (9.4-12.4); Monocytes # (auto) 0.46 K/uL (0.11-0.59); Neutrophils # (auto) 4.78 K/uL (1.40-6.50); Neutrophils % (auto) 73.3 %; Platelet Count 188 K/uL (130-400); RDW Coefficient of Variation 13.7 % (11.5-14.5); RDW Standard Deviation 43.4 fL (36.4-46.3); Red Blood Count 3.92 M/uL (4.20-5.40); White Blood Count 6.53 K/ul (4.8-10.8)
[2023-01-09 15:41] LABS: Albumin Level 3.8 gm/dl (3.4-5.0); Bilirubin,Total 0.8 mg/dl (0.2-1.0); Calcium 9.2 mg/dl (8.6-10.3); Potassium 4.1 mmol/L (3.5-5.1)
[2023-01-09 15:47] LABS: Albumin Globulin Ratio 1.7 (0.9-2); BUN Creatinine Ratio 20.3 (10-20); Creatinine Clr Calc Pharmacy 88.6 ml/min; Est GFR (African American) 112.3 ml/min; Est GFR (Non-African American) 96.9 ml/min; Globulin 2.3 gm/dl (2.5-4.0); Total Protein 6.1 gm/dl (6.0-8.3)
[2023-01-09] MEDS ORDERED: VALPROATE SOD 1,000 MG in DEXTROSE 5% 50 ML IV ONE (16:00)
[2023-01-09 18:56] LABS: Appearance Urine Clear (Clear); Bacteria Urine Automated Negative (Negative); Bilirubin Urine Negative (Negative); Blood Urine Negative (Negative); Cast Urine Automated 0 /lpf (0-5); Color Urine Yellow; Epithelial Cell Urine Auto 20-30 /lpf (0-5); Glucose Urine UA Negative (Negative); Ketones Urine Negative (Negative); Leukocyte Esterase Urine Trace (Negative); Nitrite Urine Negative (Negative); Protein Urine Negative (Negative); RBC Urine Automated 0-4 /hpf (0-4); Specific Gravity Urine 1.008 (1.000-1.030); Urobilinogen Urine Negative (Negative)
[2023-01-09] MEDS: MELATONIN 3 MG TAB PO SCH (20:45)
[2023-01-10] MEDS: LEVOTHYROXINE SODIUM 25 MCG TABLET PO SCH (05:43)
--- NOTE | 2023-01-10 07:24 | Neurology Progress Note ---
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 She has a history of seizures ever since her brain surgery. She was on Dilantin for many years but this was discontinued in 2017 because of her seizure freedom. In 2018 she had a breakthrough seizure and has been fairly well controlled since 2019 on 500 mg levetiracetam twice daily. Patient was admitted to the hospital in January 03 with acute confusion, seen by Dr. Luna, [facility] neurologist, who felt it was secondary to UTI. She is had some intermittent confusion in the concern was whether or not she was having partial seizures as no other etiologies were identified. She has a history of small left thalamic stroke in September of 2020 with residual right hand and lip numbness as well as dysarthria. I note a [id number] dysarthria on examination today and I am not convinced this is change from baseline. Interestingly, nursing reports marked improvement in the patient's function since she was given 1 g of valproic acid yesterday Recommendations: 1. Continue Depakote ER 500 mg twice daily starting today. 2. Check a trough valproic acid level in 1 week. 3. Keep levetiracetam 500 mg twice daily for now but after 1 week, consider decreasing to 250 mg twice daily for 2 weeks and then discontinue. I would like to maintain her on Depakote alone. 4. Follow-up as an outpatient in 2-3 weeks with PA. Overall, I spent a total of 50 minutes with this case including review of records, review of MRI films, direct evaluation the patient at bedside, and discussing the case with the patient and RN at bedside, and Dr. Zimmerman including differential diagnosis and treatment options Admission and Anticipated Discharge Date Admission Date: January 02, 2023 Subjective Patient is resting comfortably in bed awake and alert watching TV. Nursing reports no new issues overnight and she slept well. The nurse stated that she had a much better night last night than the night before. Nursing reports no seizure activity or abnormal spells. I last saw this patient as an outpatient September 16, 2022. That time her neurologic examination was largely unremarkable. In 2000 the patient had a right oligodendroglioma removed from her temporal lobe. She is had encephalomalacia and a focal seizure disorder ever since. She had been doing fairly well on levetiracetam 500 mg twice a day and the time I last saw her she would not had an obvious seizure since July of 2018. In September of 2020 she had a small left thalamic stroke resulting in some right- sided numbness and dysesthesias and dysarthria. She is had a little bit of numbness and tingling in the right hand and right lower lip as well as some residual dysarthria ever since. Patient had a speech therapy evaluation January 09 including a bedside swallowing study. At the time the patient was somewhat lethargic but awake. Speech therapy advised aspiration precautions and pureed diet with dietary supervision. MRI of the brain with without contrast January 08 showed no change compared to the previous study of January 02. There is no acute CVA. The old right temporal encephalomalacia seen as well as some mild generalized atrophy and small-vessel ischemic disease including the old small left thalamic stroke. There was no enhancement with contrast. I reviewed these films. An EEG January 07, was normal awake and drowsy. There were no focal abnormalities (including the right temporal lobe). Blood pressure is 113/72 and she is afebrile. Laboratory studies from January 09 revealed an unremarkable CBC and Chem profile. Urinalysis was unremarkable and been no growth in the urine so far The patient herself has no complaints of pain, headache, weakness, numbness, cognitive issues, dizziness, or vision problems Results & Data Vital Signs (Past 12 Hours) Vital Signs Temp Pulse Pulse Resp BP Pulse Ox O2 Del Method 01/10/23 02:32 36.8 C 69 16 113/72 96 Room Air 01/10/23 02:13 Room Air 01/10/23 00:44 69 01/09/23 22:43 36.9 C 66 16 118/72 95 Room Air 01/09/23 19:20 37 C 86 18 123/73 94 Room Air Exam (Neuro) Physical Exam: She is awake and alert. Her speech is dysarthric but she is understandable. She can repeat test phrases and follows commands well. She is a little bit hard of hearing. Mood is pleasant and affect is appropriate. Extraocular eye muscles are intact without nystagmus. There is no facial droop. Tongue is midline. With outstretched arms there is no drift. There is no ataxia with [id number] testing. I see no resting, postural, or action tremor of significance bilaterally. Strength is 5/5 diffusely in all major muscle groups in the arms and legs both proximally distally. There is no asymmetry noted. Toes are downgoing with plantar stimulation bilaterally. Reflexes are 1/4 in all 4 limbs. PG Care Time/CCT Total # of Minutes Spent Total Time Spent with Patient: Total time spent is greater than 50% in coordination of care (as documented) at patient's floor/unit and/or counseling patient: Coding Level of Care Code 36708 SUB INP/OBS CARE 3/50MIN Diagnoses Seizure disorder G40.909 Slurred speech R47.81 History of CVA (cerebrovascular accident) Z86.73 Hx of brain cancer Z85.841 Time Spent (min) 50
[2023-01-10] MEDS: ATORVASTATIN 40 MG TAB PO SCH (07:35)
[2023-01-10] MEDS: CEFDINIR 300 MG CAP PO SCH ×2 (07:36→20:57)
[2023-01-10] MEDS: levETIRAcetam 500 MG TAB PO SCH ×2 (07:36→20:58)
[2023-01-10] MEDS: ASPIRIN 81 MG ECTAB PO SCH (07:36)
[2023-01-10] MEDS: PANTOprazole 40 MG TAB PO SCH (07:36)
[2023-01-10] MEDS: HEPARIN SOD 5,000 UNIT/0.5 ML VIAL SQ SCH ×2 (07:36→20:58)
[2023-01-10] MEDS: CYANOCOBALAMIN (B-12) 500 MCG TABLET PO SCH (07:36)
[2023-01-10] MEDS: CLOTRIMAZOLE/BETAMETHASONE CR 15 GM TUBE EXT SCH ×2 (07:37→20:57)
[2023-01-10] MEDS: DIVALPROEX EXTENDED RELEASE 500 MG TAB PO SCH ×2 (09:04→20:57)
[2023-01-10] MEDS: INSULIN ASPART PER UNIT CHARGE SC SCH ×4 (09:08→21:00)
[2023-01-10 09:47] LABS: Calcium 9.7 mg/dl (8.6-10.3)
[2023-01-10 09:53] LABS: BUN Creatinine Ratio 15.9 (10-20); Creatinine Clr Calc Pharmacy 75.9 ml/min; Est GFR (African American) 106.6 ml/min
[2023-01-10] MEDS: THIAMINE HCL 100 MG TAB PO SCH ×2 (10:18→20:59)
--- NOTE | 2023-01-10 20:41 | Hospitalist Progress Note ---
Date of Service January 10, 2023 Assessment & Plan (1) Acute metabolic encephalopathy: Plan: Patient with memory difficulties, confusion, and cognitive impairment for about 2 months per , but much worse in the days leading up to admission. Acute worsening likely from UTI. The chronic worsening is more difficult to determine although I cannot rule out a developing dementia/cognitive process. MRI brain x 2 this admission without acute findings. Pt's mentioned staring spells at home. Her keppra level was nearly undetectable - thus, very likely the staring spells were seizures. EEG, however, is neg for seizure focus (but this does not rule out seizures of course). Certainly at risk of recurrent seizures due to the right sided frontal-temporal encephalomalacia as seen on MRI brain from prior brain tumor. 01/08 - patient acutely had worsening of her dysarthria, worsening confusion, and difficulty swallowing. marked change from 01/07. again MRI brain 01/08 negative. My suspicion is that she was having subclinical seizures and perhaps her post- ictal state is what we saw on 01/08 and 01/09. Interestingly the states that what we are currently seeing is very typical for her at home. Spoke with Dr Higgins - [facility] Neuro - depakote recommended (in addition to the keppra). depakote is a better anti-seizure med for seizures due to temporal lobe abnormalities. s/p valproate IV 1gm x 1 on 01/09 MARKED improvement overnight s/p the addition of IV depakote which would support theory of post-ictal state from seizures or ongoing active atypical seizures. cont depakote XR 500mg BID level will be needed in 1 week LFTs wnl cont keppra - neuro to wean off in clinic next few weeks (2) Seizure disorder: Plan: By report her last seizure was in July of 2018. She follows with [facility] Neurology. Keppra level nearly undetectable suggesting noncompliance. Suspect she was having recurrent seizures at home based on the 's description of her behaviors. EEG as above. see #1 above. (3) Slurred speech: Plan: IMPROVED. Does have some baseline dysarthria due to prior CVA but speech acutely worsened this week Dysarthria improved today -- s/p depakote IV yesterday MRI brain x 2 w/o acute CVA See #1 discussion above. (4) Dysphagia: Plan: Acute - seen on 01/08 and 01/09. IMPROVED. acute worsening due to a post-ictal state?? no other infectious or metabolic abnormalities seen to account for the dysphagia. MRI brain neg for acute findings 01/08. Appreciate speech therapy consult. (5) UTI (urinary tract infection): Plan: completed 7 days of IV rocephin/cefdinir repeat u/a yesterday unremarkable repeat urine cx remains negative (6) Hyperlipidemia: Plan: Continue Atorvastatin (7) Hypothyroidism: Plan: Chronic. 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 GERD? other? Plan Cont PT/OT heparin SC for DVT proph left detailed voicemail for today home with HH? rehab? care d/w Dr Higgins - neuro Admission and Anticipated Discharge Date Admission Date: January 02, 2023 Subjective patient doing well today much more awake, alert severe dysarthria improved eating well she offers no complaints staff report she has had a good day did go for a walk with staff - did entire lap - unsteady Review of Systems Review of Systems: gen - feels good cv - no chest pain pulm - chronic cough unchanged; denies dyspnea GI - no abd pain/nausea/vomiting neuro - no headache - no dysuria Physical Exam Physical Exam: gen - NAD, looks much better today, speech more clear, more awake/alert eyes - CN palsies she had yesterday are fully resolved; EOMI today mouth - MMM neck - no JVD heart - RRR, s1 s2, no murmur lungs - CTA b/l; no rales, no wheeze abd - soft NT ND BS+ ext - no edema, pulses 2+ b/l psych - awake, alert - knew it was Jan 10, 2023; hospital; [place] Results & Data Results & Data Vital Signs (Past 12 Hours) Vital Signs Temp Pulse Pulse Resp BP Pulse Ox O2 Del Method 01/10/23 19:21 36.6 C 73 18 129/76 95 Room Air 01/10/23 15:50 36.4 C L 68 17 136/78 95 Room Air 01/10/23 15:04 77 01/10/23 12:14 36.8 C 79 18 104/68 95 Room Air Laboratory Results Laboratory Results - last 24 hr 01/10/23 01/10/23 01/10/23 08:33 08:33 08:48 Sodium 134 L Potassium 4.0 Chloride 100 Carbon Dioxide 25 Anion Gap 9 BUN 11 Creatinine 0.69 Est Cr Clr Drug Dosing 75.9 Est GFR ( Amer) 106.6 Est GFR (Non-Af Amer) 92.0 BUN/Creatinine Ratio 15.9 Glucose 138 H POC Glucose 176 H Osmolality 288 Calcium 9.7 01/10/23 01/10/23 01/10/23 12:11 17:19 20:25 Sodium Potassium Chloride Carbon Dioxide Anion Gap BUN Creatinine Est Cr Clr Drug Dosing Est GFR ( Amer) Est GFR (Non-Af Amer) BUN/Creatinine Ratio Glucose POC Glucose 129 H 102 H 135 H Osmolality Calcium PG Care Time/CCT Total # of Minutes Spent Total Time Spent with Patient: Total time spent is greater than 50% in coordination of care (as documented) at patient's floor/unit and/or counseling patient: Coding Level of Care Code 51320 SUB INP/OBS CARE 2/35MIN Diagnoses Acute metabolic encephalopathy G93.41 Seizure disorder G40.909 Slurred speech R47.81 Dysphagia R13.10 UTI (urinary tract infection) N39.0 Hyperlipidemia E78.5 Hypothyroidism E03.9 Type 2 diabetes mellitus E11.9 B12 deficiency E53.8 Hx of brain cancer Z85.841 Recurrent herpes labialis B00.1 History of CVA (cerebrovascular accident) Z86.73 Esophageal reflux K21.9 Chronic cough R05
[2023-01-10] MEDS: MELATONIN 3 MG TAB PO SCH (20:58)
[2023-01-11] MEDS: LEVOTHYROXINE SODIUM 25 MCG TABLET PO SCH (05:38)
[2023-01-11] MEDS: INSULIN ASPART PER UNIT CHARGE SC SCH ×4 (09:07→22:02)
[2023-01-11] MEDS: ATORVASTATIN 40 MG TAB PO SCH (09:12)
[2023-01-11] MEDS: PANTOprazole 40 MG TAB PO SCH (09:12)
[2023-01-11] MEDS: levETIRAcetam 500 MG TAB PO SCH ×2 (09:12→20:32)
[2023-01-11] MEDS: CYANOCOBALAMIN (B-12) 500 MCG TABLET PO SCH (09:12)
[2023-01-11] MEDS: THIAMINE HCL 100 MG TAB PO SCH ×2 (09:12→20:32)
[2023-01-11] MEDS: ASPIRIN 81 MG ECTAB PO SCH (09:12)
[2023-01-11] MEDS: HEPARIN SOD 5,000 UNIT/0.5 ML VIAL SQ SCH ×2 (09:12→20:31)
[2023-01-11] MEDS: CEFDINIR 300 MG CAP PO SCH ×2 (09:13→20:32)
[2023-01-11] MEDS: DIVALPROEX EXTENDED RELEASE 500 MG TAB PO SCH ×2 (09:13→20:32)
[2023-01-11] MEDS: CLOTRIMAZOLE/BETAMETHASONE CR 15 GM TUBE EXT SCH ×2 (09:13→20:31)
[2023-01-11 09:22] LABS: BUN Creatinine Ratio 14.3 (10-20); Calcium 10.1 mg/dl (8.6-10.3); Creatinine Clr Calc Pharmacy 74.6 ml/min; Est GFR (African American) 106.1 ml/min; Est GFR (Non-African American) 91.6 ml/min; Potassium 4.1 mmol/L (3.5-5.1)
--- NOTE | 2023-01-11 20:21 | Hospitalist Progress Note ---
Date of Service January 11, 2023 Assessment & Plan (1) Acute metabolic encephalopathy: Plan: Suspected to be due to recurrent, subclinical seizures. Extensive w/u looking for alternative diagnoses was negative including MRI brain x 2, multiple urine cx's, multiple CXRs, labs, etc. The thinking was that keppra was simply not stopping her seizures. reported 2+ months of staring spells, odd behaviors, etc. Dr Higgins from neuro advised adding depakote. s/p 1000mg load followed by 500mg BID of depakote ER. thus far tolerating this and her slurred speech/altered MS/etc (thought to be post-ictal symptoms/signs) resolved following the addition of depakote. plan is to check a level in 1 week (check on 01/16/23), keep keppra for now, see neuro post-d/c, then ultimately wean off keppra. (2) Seizure disorder: Plan: By report her last seizure was in July of 2018. She follows with [facility]. Suspect she was having recurrent seizures at home based on the 's description of her behaviors. EEG here was normal but again recurrent seizures still highly suspected. see #1 above. (3) Slurred speech: Plan: IMPROVED. Does have some baseline dysarthria due to prior CVA but speech acutely worsened this past week Dysarthria improved s/p depakote IV which would argue the dysarthria and altered MS may be indeed due to a post-ictal state MRI brain x 2 w/o acute CVA See #1 discussion above. (4) Dysphagia: Plan: Acute - seen on 01/08 and 01/09. IMPROVED. acute worsening due to a post-ictal state?? no other infectious or metabolic abnormalities seen to account for the dysphagia. MRI brain neg for acute findings 01/08. Appreciate speech therapy consult. (5) UTI (urinary tract infection): Plan: completed 7 days of IV rocephin/cefdinir (her u/a was highly suspicious of UTI but a culture was never sent at admission) repeat urine cx remains negative thus far (6) Hyperlipidemia: Plan: Continue Atorvastatin (7) Hypothyroidism: Plan: Chronic. 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 GERD? other? Plan Cont PT/OT heparin SC for DVT proph left 2 messages for yesterday/today - he did not answer because he got admitted to [facility] spoke with son Fredo Chanel - [phone] - this evening extensive update given he reports his mother has had cognitive dysfunction for some time - years likely questions answered dispo - rehab Admission and Anticipated Discharge Date Admission Date: January 02, 2023 Subjective pt w/o complaints feels well eating ok she is aware her has been hospitalized she states he came down from 4th floor today to visit with her we talked about rehab post-discharge since she would be alone (due to being here at [facility] as patient) per staff no issues, no obvious seizures, etc tele - NSR Review of Systems Review of Systems: gen - no fevers/chills cv - no cp, no orthopnea pulm - no dyspnea GI - no abd pain/nausea/emesis Physical Exam Physical Exam: gen - NAD, looks good mouth - MMM neck - no JVD heart - RRR, s1 s2, no murmur lungs - CTA b/l; no rales, no wheeze abd - soft NT ND BS+ ext - no edema, pulses 2+ b/l psych - awake, alert - knew it was Jan 2023; [facility] [address]; [place] Results & Data Results & Data Vital Signs (Past 12 Hours) Vital Signs Temp Pulse Pulse Resp BP BP Pulse Ox 01/11/23 19:12 36.8 C 85 18 116/72 95 01/11/23 16:08 86 01/11/23 15:12 36.4 C L 78 16 109/72 98 01/11/23 11:52 01/11/23 11:16 36.4 C L 82 18 122/82 95 O2 Del Method 01/11/23 19:12 Room Air 01/11/23 16:08 01/11/23 15:12 Room Air 01/11/23 11:52 Room Air 01/11/23 11:16 Room Air Laboratory Results Laboratory Results - last 24 hr 01/10/23 01/11/23 01/11/23 20:25 07:58 08:45 Sodium 137 Potassium 4.1 Chloride 99 Carbon Dioxide 31 Anion Gap 7 BUN 10 Creatinine 0.70 Est Cr Clr Drug Dosing 74.6 Est GFR ( Amer) 106.1 Est GFR (Non-Af Amer) 91.6 BUN/Creatinine Ratio 14.3 Glucose 112 H POC Glucose 135 H 112 H Calcium 10.1 01/11/23 01/11/23 11:59 16:33 Sodium Potassium Chloride Carbon Dioxide Anion Gap BUN Creatinine Est Cr Clr Drug Dosing Est GFR ( Amer) Est GFR (Non-Af Amer) BUN/Creatinine Ratio Glucose POC Glucose 118 H 140 H Calcium PG Care Time/CCT Total # of Minutes Spent Total Time Spent with Patient: Total time spent is greater than 50% in coordination of care (as documented) at patient's floor/unit and/or counseling patient: Coding Level of Care Code 75359 SUB INP/OBS CARE 2/35MIN Diagnoses Acute metabolic encephalopathy G93.41 Seizure disorder G40.909 Slurred speech R47.81 Dysphagia R13.10 UTI (urinary tract infection) N39.0 Hyperlipidemia E78.5 Hypothyroidism E03.9 Type 2 diabetes mellitus E11.9 B12 deficiency E53.8 Hx of brain cancer Z85.841 Recurrent herpes labialis B00.1 History of CVA (cerebrovascular accident) Z86.73 Esophageal reflux K21.9 Chronic cough R05
[2023-01-11] MEDS: MELATONIN 3 MG TAB PO SCH (20:31)
[2023-01-12] MEDS: LEVOTHYROXINE SODIUM 25 MCG TABLET PO SCH (05:56)
[2023-01-12] MEDS: PANTOprazole 40 MG TAB PO SCH (07:56)
[2023-01-12] MEDS: levETIRAcetam 500 MG TAB PO SCH ×2 (07:56→20:00)
[2023-01-12] MEDS: CEFDINIR 300 MG CAP PO SCH ×2 (07:56→20:01)
[2023-01-12] MEDS: DIVALPROEX EXTENDED RELEASE 500 MG TAB PO SCH ×2 (07:56→20:00)
[2023-01-12] MEDS: CYANOCOBALAMIN (B-12) 500 MCG TABLET PO SCH (07:56)
[2023-01-12] MEDS: THIAMINE HCL 100 MG TAB PO SCH ×2 (07:57→20:01)
[2023-01-12] MEDS: ASPIRIN 81 MG ECTAB PO SCH (07:57)
[2023-01-12] MEDS: ATORVASTATIN 40 MG TAB PO SCH (07:57)
[2023-01-12] MEDS: HEPARIN SOD 5,000 UNIT/0.5 ML VIAL SQ SCH ×2 (07:58→19:59)
[2023-01-12] MEDS: INSULIN ASPART PER UNIT CHARGE SC SCH ×4 (09:35→20:50)
[2023-01-12] MEDS: CLOTRIMAZOLE/BETAMETHASONE CR 15 GM TUBE EXT SCH ×2 (10:59→20:00)
[2023-01-12 17:07] LABS: Levetiracetam Keppra 18.7 mcg/mL (6.0-46.0)
[2023-01-12] MEDS: MELATONIN 3 MG TAB PO SCH (20:00)
--- NOTE | 2023-01-12 20:45 | Hospitalist Progress Note ---
Date of Service January 12, 2023 Assessment & Plan (1) Acute metabolic encephalopathy: Plan: Suspected to be due to recurrent, subclinical seizures. Extensive w/u looking for alternative diagnoses was negative including MRI brain x 2, multiple urine cx's, multiple CXRs, labs, etc. The thinking was that keppra was simply not stopping her seizures. reported 2+ months of staring spells, odd behaviors, etc. Dr Higgins from neuro advised adding depakote. s/p 1000mg load followed by 500mg BID of depakote ER. thus far tolerating this and her slurred speech/altered MS/etc (thought to be post-ictal symptoms/signs) resolved following the addition of depakote. plan is to check a level in 1 week (check on 01/16/23), keep keppra for now, see neuro post-d/c, then ultimately wean off keppra. (2) Seizure disorder: Plan: By report her last known seizure was in July of 2018. She [place] with [facility]. Suspect she was having recurrent seizures at home based on the 's description of her behaviors. EEG here was normal but again recurrent seizures still highly suspected. see #1 above. (3) Slurred speech: Plan: IMPROVED. Does have some baseline dysarthria due to prior CVA but speech acutely worsened this past week Dysarthria improved s/p depakote IV which would argue the dysarthria and altered MS may be indeed due to a post-ictal state MRI brain x 2 w/o acute CVA See #1 discussion above. (4) Dysphagia: Plan: Acute - seen on 01/08 and 01/09. IMPROVED. acute worsening due to a post-ictal state?? no other infectious or metabolic abnormalities seen to account for the dysphagia. MRI brain neg for acute findings 01/08. Appreciate speech therapy consult. (5) UTI (urinary tract infection): Plan: completed 7 days of IV rocephin/cefdinir (her u/a was highly suspicious of UTI but a culture was never sent at admission) repeat urine cx remains negative thus far (6) Hyperlipidemia: Plan: Continue Atorvastatin (7) Hypothyroidism: Plan: Chronic. 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 GERD? other? Plan Cont PT/OT heparin SC for DVT proph spoke with son Fredo Chanel - [phone] - 01/11/23 extensive update given he reports his mother has had cognitive dysfunction for some time - years likely questions answered dispo - rehab Admission and Anticipated Discharge Date Admission Date: January 02, 2023 Subjective tele wnl overnight no new events is at bedside - he is actually hospitalized; he mentions he is getting a pacemaker tomorrow pt w/o any complaints Review of Systems Review of Systems: gen - feels good denies pain any location Physical Exam Physical Exam: gen - NAD, looks good - similar to yesterday mouth - MMM neck - no JVD heart - RRR, s1 s2, no murmur lungs - CTA b/l; no rales, no wheeze abd - soft NT ND BS+ ext - no edema, pulses 2+ b/l psych - awake, alert, oriented neuro - speech - mild dysarthria but baseline today Results & Data Results & Data Vital Signs (Past 12 Hours) Vital Signs Temp Pulse Pulse Resp BP Pulse Ox O2 Del Method 01/12/23 19:58 36.5 C 93 H 18 135/84 97 Room Air 01/12/23 16:07 36.7 C 89 16 117/76 94 Room Air 01/12/23 15:33 87 01/12/23 11:25 36.5 C 75 16 132/84 94 Room Air 01/12/23 11:20 Room Air Laboratory Results Laboratory Results - last 48 hr 01/07/23 01/11/23 01/11/23 05:30 11:59 16:33 Sodium Potassium Chloride Carbon Dioxide Anion Gap BUN Creatinine Est Cr Clr Drug Dosing Est GFR ( Amer) Est GFR (Non-Af Amer) BUN/Creatinine Ratio Glucose POC Glucose 118 H 140 H Calcium Total Bilirubin AST ALT Alkaline Phosphatase Total Protein Albumin Globulin Albumin/Globulin Ratio Vitamin B1 8 Levetiracetam 18.7 01/11/23 01/12/23 01/12/23 21:09 08:01 11:33 Sodium Potassium Chloride Carbon Dioxide Anion Gap BUN Creatinine Est Cr Clr Drug Dosing Est GFR ( Amer) Est GFR (Non-Af Amer) BUN/Creatinine Ratio Glucose POC Glucose 134 H 107 H 114 H Calcium Total Bilirubin AST ALT Alkaline Phosphatase Total Protein Albumin Globulin Albumin/Globulin Ratio Vitamin B1 Levetiracetam 01/12/23 01/12/23 01/12/23 17:33 20:05 20:38 Sodium Potassium Chloride Carbon Dioxide Anion Gap BUN Creatinine Est Cr Clr Drug Dosing Est GFR ( Amer) Est GFR (Non-Af Amer) BUN/Creatinine Ratio Glucose POC Glucose 187 H 146 H 139 H Calcium Total Bilirubin AST ALT Alkaline Phosphatase Total Protein Albumin Globulin Albumin/Globulin Ratio Vitamin B1 Levetiracetam PG Care Time/CCT Total # of Minutes Spent Total Time Spent with Patient: Total time spent is greater than 50% in coordination of care (as documented) at patient's floor/unit and/or counseling patient: Coding Level of Care Code 92246 SUB INP/OBS CARE 06/04MIN Diagnoses Acute metabolic encephalopathy G93.41 Seizure disorder G40.909 Slurred speech R47.81 Dysphagia R13.10 UTI (urinary tract infection) N39.0 Hyperlipidemia E78.5 Hypothyroidism E03.9 Type 2 diabetes mellitus E11.9 B12 deficiency E53.8 Hx of brain cancer Z85.841 Recurrent herpes labialis B00.1 History of CVA (cerebrovascular accident) Z86.73 Esophageal reflux K21.9 Chronic cough R05
[2023-01-13] MEDS: LEVOTHYROXINE SODIUM 25 MCG TABLET PO SCH (06:12)
[2023-01-13 07:38] LABS: Albumin Globulin Ratio 1.5 (0.9-2); BUN Creatinine Ratio 10.4 (10-20); Bilirubin,Total 0.5 mg/dl (0.2-1.0); Calcium 9.7 mg/dl (8.6-10.3); Creatinine Clr Calc Pharmacy 67.6 ml/min; Est GFR (African American) 94.6 ml/min; Est GFR (Non-African American) 81.6 ml/min; Globulin 2.7 gm/dl (2.5-4.0); Potassium 4.2 mmol/L (3.5-5.1); Total Protein 6.7 gm/dl (6.0-8.3)
[2023-01-13] MEDS: INSULIN ASPART PER UNIT CHARGE SC SCH ×4 (08:22→21:04)
[2023-01-13] MEDS: levETIRAcetam 500 MG TAB PO SCH ×2 (08:43→21:04)
[2023-01-13] MEDS: CEFDINIR 300 MG CAP PO SCH (08:43)
[2023-01-13] MEDS: THIAMINE HCL 100 MG TAB PO SCH ×2 (08:43→21:03)
[2023-01-13] MEDS: ATORVASTATIN 40 MG TAB PO SCH (08:44)
[2023-01-13] MEDS: DIVALPROEX EXTENDED RELEASE 500 MG TAB PO SCH ×2 (08:44→21:04)
[2023-01-13] MEDS: ASPIRIN 81 MG ECTAB PO SCH (08:44)
[2023-01-13] MEDS: CLOTRIMAZOLE/BETAMETHASONE CR 15 GM TUBE EXT SCH ×2 (08:45→21:03)
[2023-01-13] MEDS: PANTOprazole 40 MG TAB PO SCH (08:45)
[2023-01-13] MEDS: CYANOCOBALAMIN (B-12) 500 MCG TABLET PO SCH (08:45)
[2023-01-13] MEDS: HEPARIN SOD 5,000 UNIT/0.5 ML VIAL SQ SCH ×2 (08:45→21:03)
--- NOTE | 2023-01-13 20:37 | Hospitalist Progress Note ---
Date of Service January 13, 2023 Assessment & Plan (1) Acute metabolic encephalopathy: Plan: IMPROVED. Suspected to be due to recurrent, subclinical seizures. Extensive w/u looking for alternative diagnoses was negative including MRI brain x 2, multiple urine cx's, multiple CXRs, labs, COVID testing, etc. The thinking was that keppra was simply not stopping her seizures. reported 2+ months of staring spells, odd behaviors, etc. Dr Higgins from neuro advised adding depakote. s/p 1000mg load followed by 500mg BID of depakote ER. thus far tolerating this and her slurred speech/altered MS/etc (thought to be post-ictal symptoms/signs) resolved following the addition of depakote. plan is to check a level in 1 week (needs to be checked AM of 01/16/23), keep keppra for now, see neurology post-d/c, then ultimately wean off keppra. (2) Seizure disorder: Plan: She follows with [facility]. Suspect she was having recurrent seizures at home based on the 's description of her behaviors. EEG here was normal but again recurrent seizures still highly suspected. see #1 above. (3) Slurred speech: Plan: IMPROVED. Does have some baseline dysarthria due to prior CVA but speech acutely worsened this past week Dysarthria improved s/p depakote IV which would argue the dysarthria and altered MS may be indeed due to a post-ictal state MRI brain x 2 w/o acute CVA See #1 discussion above. (4) Dysphagia: Plan: Acute - IMPROVED. acute worsening due to a post-ictal state?? no other infectious or metabolic abnormalities seen to account for the dysphagia. MRI brain neg for acute findings 01/08. Appreciate speech therapy consult. (5) UTI (urinary tract infection): Plan: completed 7 days of IV rocephin/cefdinir (her u/a was highly suspicious of UTI but a culture was never sent at admission) repeat urine cx remains negative thus far (6) Hyperlipidemia: Plan: Continue Atorvastatin (7) Hypothyroidism: Plan: Chronic. 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 GERD? other? Plan Cont PT/OT heparin SC for DVT proph spoke with son Fredo Chanel - [phone] - 01/11/23 extensive update given he reports his mother has had cognitive dysfunction for some time - years likely questions answered dispo - rehab Admission and Anticipated Discharge Date Admission Date: January 02, 2023 Subjective tele overnight wnl no acute events today resting comfortably in bed denies any new complaints no staff concerns plan is still to go to rehab post-d/c -- she remains agreeable Review of Systems Review of Systems: cv - denies chest pain pulm - denies cough or congestion GI - denies pain or n/v - denies dysuria Physical Exam Physical Exam: gen - NAD, looks good - similar to yesterday mouth - MMM neck - no JVD heart - RRR, s1 s2, no murmur lungs - CTA b/l; no rales, no wheeze abd - soft NT ND BS+ ext - no edema, pulses 2+ b/l psych - awake, alert, slight confusion noted neuro - speech - mild dysarthria unchanged Results & Data Results & Data Vital Signs (Past 12 Hours) Vital Signs Temp Pulse Pulse Resp BP Pulse Ox O2 Del Method 01/13/23 16:00 85 01/13/23 16:09 36.2 C L 70 18 140/84 98 Room Air 01/13/23 10:58 36.9 C 75 14 123/77 95 Room Air Laboratory Results Laboratory Results - last 24 hr 01/12/23 01/13/23 01/13/23 20:38 06:51 08:04 Sodium 137 Potassium 4.2 Chloride 99 Carbon Dioxide 33 H Anion Gap 5 BUN 8 Creatinine 0.77 Est Cr Clr Drug Dosing 67.6 Est GFR ( Amer) 94.6 Est GFR (Non-Af Amer) 81.6 BUN/Creatinine Ratio 10.4 Glucose 111 H POC Glucose 139 H 105 H Calcium 9.7 Total Bilirubin 0.5 AST 15 ALT 16 Alkaline Phosphatase 54 Total Protein 6.7 Albumin 4.0 Globulin 2.7 Albumin/Globulin Ratio 1.5 01/13/23 01/13/23 01/13/23 11:50 16:31 20:07 Sodium Potassium Chloride Carbon Dioxide Anion Gap BUN Creatinine Est Cr Clr Drug Dosing Est GFR ( Amer) Est GFR (Non-Af Amer) BUN/Creatinine Ratio Glucose POC Glucose 148 H 153 H 122 H Calcium Total Bilirubin AST ALT Alkaline Phosphatase Total Protein Albumin Globulin Albumin/Globulin Ratio PG Care Time/CCT Total # of Minutes Spent Total Time Spent with Patient: Total time spent is greater than 50% in coordination of care (as documented) at patient's floor/unit and/or counseling patient: Coding Level of Care Code 51272 SUB INP/OBS CARE 1/25MIN Diagnoses Acute metabolic encephalopathy G93.41 Seizure disorder G40.909 Slurred speech R47.81 Dysphagia R13.10 UTI (urinary tract infection) N39.0 Hyperlipidemia E78.5 Hypothyroidism E03.9 Type 2 diabetes mellitus E11.9 B12 deficiency E53.8 Hx of brain cancer Z85.841 Recurrent herpes labialis B00.1 History of CVA (cerebrovascular accident) Z86.73 Esophageal reflux K21.9 Chronic cough R05
[2023-01-13] MEDS: MELATONIN 3 MG TAB PO SCH (21:03)
[2023-01-14] MEDS: LEVOTHYROXINE SODIUM 25 MCG TABLET PO SCH (06:09)
[2023-01-14] MEDS: CLOTRIMAZOLE/BETAMETHASONE CR 15 GM TUBE EXT SCH (08:41)
[2023-01-14] MEDS: ATORVASTATIN 40 MG TAB PO SCH (08:41)
[2023-01-14] MEDS: ASPIRIN 81 MG ECTAB PO SCH (08:41)
[2023-01-14] MEDS: DIVALPROEX EXTENDED RELEASE 500 MG TAB PO SCH (08:42)
[2023-01-14] MEDS: HEPARIN SOD 5,000 UNIT/0.5 ML VIAL SQ SCH (08:42)
[2023-01-14] MEDS: levETIRAcetam 500 MG TAB PO SCH (08:42)
[2023-01-14] MEDS: THIAMINE HCL 100 MG TAB PO SCH (08:42)
[2023-01-14] MEDS: CYANOCOBALAMIN (B-12) 500 MCG TABLET PO SCH (08:42)
[2023-01-14] MEDS: PANTOprazole 40 MG TAB PO SCH (08:42)
[2023-01-14] MEDS: INSULIN ASPART PER UNIT CHARGE SC SCH ×2 (09:55→12:46)
--- NOTE | 2023-01-14 13:23 | Discharge Summary ---
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 Patient is unable to provide details of events prior to arrival. History obtained through discussion with ER staff, chart review and at bedside (not present during acute events, however). Patient [place] [employer] today when she became confused. She began running into people with her motorized scooter and driving where she wasn't supposed to be driving. She was acting odd and had some reported ataxia and possible syncope so she was brought to [facility]. In the ER patient afebrile, hypertensive otherwise HD stable. She was acting strangely - minimally responsive or slow to respond. In the ER she climbed over her bedrail and was running down the yuan. She was also apparently climbing over the sink in MRI. at bedside reports that she has been acting "weird" for the last couple of months. She has episodes where her "eyes look like they're in outer space" and she becomes minimally responsive and ataxic. These episodes are becoming more frequent. Patient with no complaints at this time. She does not recall the events of today. ER Course: Ceftriaxone Ativan 0.5mg Keflex 500mg PO NSS x 1L Principal Diagnosis Altered mental status due to acute metabolic encephalopathy, UTI, transient dysphagia Discharge Exam General-alert and oriented to name and place, no fevers, no chills HEENT-head atraumatic and normocephalic, pupils equal and reactive to light, extraocular muscles intact Neck-no lymphadenopathy or thyromegaly, trachea midline Chest-clear to auscultation percussion. No rales wheezing or rhonchi Cardiac-regular rate and rhythm, normal S1 and S2 Abdomen-normal bowel sounds, nontender, no hepatosplenomegaly Extremities-no cyanosis, clubbing, or edema Neuro-cranial nerves II through XII intact, motor and sensory function within normal limits, strength symmetrical, no focal deficits Psych-normal affect, normal mood Discharge Data Allergies Allergy/AdvReac Type Severity Reaction Status Date / Time Sulfa (Sulfonamide Allergy Intermediate ITCHING, Verified 01/03/23 18:44 Antibiotics) BURNING aspirin Allergy Unknown TO AVOID Verified 01/03/23 18:44 -HX BRAIN TUMOR NOT TO TAKE Consultations 01/02/23 22:50 ED Decision to Admit Stat 01/03/23 08:03 Consult Neurology Routine Ordered Studies 01/02/23 18:23 CT head/brain wo con Stat 01/02/23 20:31 MRI Brain [MR brain wo con] Stat 01/08/23 14:37 CT head/brain wo con Urgent 01/08/23 17:58 MR brain wo/w con Routine Hospital Course (1) Acute metabolic encephalopathy: Present on admission due to exacerbation of seizure disorder and UTI. She has now nearly back to baseline. Continue supportive care. Brain MRI scan negative x2 for CVA (2) Seizure disorder: Appreciate neurology consultation and recommendations. Depakote has been added to Keppra. EEG here was normal but again recurrent seizures still highly suspected. see #1 above. (3) Slurred speech: IMPROVED. Does have some baseline dysarthria due to prior CVA but speech acutely worsened this past week. Now nearly back to baseline. Brain MRI scan x2 negative for acute CVA. (4) Dysphagia: Acute - seen on 01/08 and 01/09. Now improved. Appreciate speech therapy consult. (5) UTI (urinary tract infection): completed 7 days of IV rocephin/cefdinir. No further treatment needed at this time (6) Hyperlipidemia: Stable. Continue Atorvastatin (7) Hypothyroidism: Stable. Continue Synthroid (8) Type 2 diabetes mellitus: ADA diet. Sliding scale coverage. Continue metformin therapy (9) B12 deficiency: Stable. Continue B12 replacement therapy (10) Hx of brain cancer: temporal glioma on right . s/p resection . Supportive care (11) History of CVA (cerebrovascular accident): Supportive care. Lacunar - left thalamus. MRI brain x 2 this admission NEG for acute CVA Plan Discharged to [facility] today, January 14 Total Time Total Time Spent Total Time Spent (In Minutes): 45 minutes Discharge Plan Discharge Items Patient Disposition: Transfer [facility] Reason For Visit: CONFUSION Discharge Diagnosis: Acute metabolic encephalopathy, UTI present on admission, suspected acute exacerbation of seizure disorder Activity: Resume your previous activity Non-emergency contact: Primary Care Provider Call non-emergency contact if: your symptoms worsen Follow-up/Referrals: Aleshia Morton MD [Primary Care Provider] - Diet: Carb Consistent or DM2 and Heart Healthy Addtl Attending Provider Instructions: Depakote has been added to Keppra for seizure control Pending Studies at Discharge: No Stand-Alone Forms: [facility] Skilled Items Patient informed of condition?: Yes DNR: Yes Discharge Level of Care: Skilled Communicable Disease: No Discharge Prognosis: Stable Lines: None Urinary Catheter: No Medications and DC Order Prescriptions: New thiamine HCl (vitamin B1) 100 mg Tablet 200 mg PO BID Qty: 0 0RF cyanocobalamin (vitamin B-12) 500 mcg Tablet 1,000 mcg PO QAM Qty: 0 0RF divalproex 500 mg Tablet Extended Release 24 Hr 500 mg PO BID Qty: 0 0RF Continued clotrimazole-betamethasone 1-0.05 % cream 1 applic topical BID Qty: 45 0RF montelukast [Singulair] 10 mg tablet 10 mg PO DAILY Qty: 90 3RF potassium chloride 20 mEq tablet extended release 20 meq PO DAILY Qty: 90 3RF atorvastatin 40 mg tablet 40 mg PO DAILY Qty: 90 3RF metformin 500 mg tablet extended release 24 hr 500 mg PO BID Qty: 180 3RF levetiracetam 500 mg tablet 500 mg PO BID Qty: 180 3RF omeprazole 20 mg capsule,delayed release(DR/EC) 20 mg PO QAM levothyroxine 25 mcg tablet 25 mcg PO QAM aspirin 81 mg Tablet,Delayed Release (Dr/Ec) 81 mg PO QAM Qty: 30 0RF Discharge Orders: Discharge Order (Routine); Ordered 01/14/23 Ordered By: Steve Wallace Admission Data Admit Date/Time: 01/02/23 23:42 Attending Provider: Steve Wallace Admit Provider: Shanelle Kay Primary Care Provider: Aleshia Morton Other Providers: Shanelle Kay ; Stephan Luna ; Heard,Care Coding Level of Care Code 45601 INP/OBS DISCH >30 MIN Diagnoses Acute metabolic encephalopathy G93.41 Seizure disorder G40.909 Slurred speech R47.81 Dysphagia R13.10 UTI (urinary tract infection) N39.0 Hyperlipidemia E78.5 Hypothyroidism E03.9 Type 2 diabetes mellitus E11.9 B12 deficiency E53.8 Hx of brain cancer Z85.841 History of CVA (cerebrovascular accident) Z86.73
== END 2023-01-14 15:19 | DRG 689 ==
LOC: ED 18:13 → 2W 23:42 → SUATTDRO 23:42 → 2W 01-03 01:02

== ENCOUNTER 2024-01-06 12:22 | Inpatient (IN) ==
[2024-01-06 13:28] LABS: Basophils # (auto) 0.04 K/uL (0.00-0.20); Basophils % (auto) 0.3 %; Hematocrit (blood only) 39.1 % (37.0-47.0); Hemoglobin 13.4 g/dl (12.0-16.0); Immature Granulocytes # (auto) 0.07 K/uL (0.01-0.20); Immature Granulocytes % (auto) 0.6 %; Lymphocytes # (auto) 0.78 K/uL (1.20-3.40); Lymphocytes % (auto) 6.4 %; Mean Corpuscular Hemoglobin 30.9 pg (25.0-34.0); Mean Corpuscular Hgb Conc 34.3 g/dL (32.0-36.0); Mean Corpuscular Volume 90.3 fL (80.0-100.0); Mean Platelet Volume 8.9 fL (9.4-12.4); Monocytes # (auto) 1.12 K/uL (0.11-0.59); Monocytes % (auto) 9.2 %; Neutrophils # (auto) 10.14 K/uL (1.40-6.50); Neutrophils % (auto) 83.5 %; Platelet Count 153 K/uL (130-400); RDW Coefficient of Variation 12.5 % (11.5-14.5); RDW Standard Deviation 41.3 fL (36.4-46.3); Red Blood Count 4.33 M/uL (4.20-5.40); White Blood Count 12.15 K/ul (4.8-10.8)
[2024-01-06 13:44] LABS: Alanine Aminotransferase 16 U/L (7-52); Albumin Globulin Ratio 1.3 (0.9-2); Albumin Level 4.4 gm/dl (3.4-5.0); Alkaline Phosphatase 69 U/L (34-104); Anion Gap 9 (3-11); Aspartate Aminotransferase 14 U/L (13-39); Bilirubin,Total 0.8 mg/dl (0.2-1.0); Blood Urea Nitrogen 10 mg/dl (6-23); Calcium 10.2 mg/dl (8.6-10.3); Carbon Dioxide 27 mmol/L (21-32); Chloride 99 mmol/L (98-107); Est GFR (African American) 93.9 ml/min; Globulin 3.3 gm/dl (2.5-4.0); Glucose 200 mg/dl (70-99(Fasting)); Potassium 4.6 mmol/L (3.5-5.1); Sodium 135 mmol/L (136-145); Total Protein 7.7 gm/dl (6.0-8.3)
--- NOTE | 2024-01-06 14:34 | XRay Report ---
LEFT KNEE 2 VIEWS CLINICAL HISTORY: Fall. Left knee injury. FINDINGS: AP and crosstable lateral views of the left knee are obtained. No prior studies are availab le for comparison at the time of dictation. The skeletal structures are heterogeneously osteopenic. N o fracture is seen. There is minimal degenerative joint space narrowing. A small joint effusion is shea spected. The overlying soft tissues are within normal limits. IMPRESSION: No acute bony abnormality is identified. Electronically signed by: Leonides Partida M.D. 01/06/2024 2:33 PM
--- NOTE | 2024-01-06 15:38 | Emergency Department Note ---
Impression & Plan Ambulatory dysfunction ADMIT ED Provider Note HPI: History obtained from patient. The patient is a 63-year-old female with history of type 2 diabetes, morbid obesity, presents the emergency department with a chief complaint of left knee pain. Patient states that she has had pain and weakness in her left knee and left leg for several months. She states that she spent the last week at the [facility] and used an electric scooter to get around the [place]. She states she did not walk very much. Patient states she has pain within the knee, denies any recent fever, she does not have any focal deficits on arrival. Patient is noted to have motor strength intact in the bilateral lower extremities on my exam. ROS: - Per HPI Differential Diagnosis: Left knee pain secondary to osteoarthritis, traumatic injury/fracture, knee dislocation, stroke, peripheral nerve entrapment, amongst other potential pathologies. *Outpatient medications and allergy history reviewed. PE: General: Alert, morbidly obese, no acute distress HEENT: Normocephalic, trachea midline Eyes: Extraocular eye movement is intact, no scleral erythema Pulmonary: Clear to auscultation bilaterally, no wheezing Cardio: Regular rate and rhythm GI: Abdomen is soft to palpation : No suprapubic tenderness MSK: No evidence of trauma or malformation of the extremities, no edema Skin: No evidence of rash Neuro: Alert, no focal deficits, dorsiflexion and plantarflexion are intact bilaterally with 5 out of 5 strength, patient is able to flex at the knee bilaterally without any issues Psychiatric: Cooperative Medical Decision Making: X-ray imaging of the left knee does not show any evidence of fracture or dislocation. Ultrasound imaging of the left lower extremity does not show any evidence of DVT. Patient's later arrived and states the patient has been having progressive ambulatory dysfunction for months now, he states that he is concerned now that they are home from the fair that she will fall when she is in the house and he is too weak to assist her. On my exam the patient does not have any focal deficits, she does have good motor strength in the left lower extremity on my exam when she is seated. I have low suspicion for stroke. She states the symptoms have been ongoing for several months now. I had a prolonged conversation with the patient and her . The patient was able to ambulate a short distance here in the ED with a cane however she was very unsteady on her feet. Patient opted for inpatient care for physical therapy assessment and she states she would like inpatient rehabilitation if possible. I did therefore did discuss the case with the admitting resident for the [facility] hospitalist team and the patient was placed for admission in stable condition. Consultants/Discussions held with other healthcare providers: -Hospitalist, Dr. Garcia Disposition discussion held by myself with: -Patient and Diagnosis: 1. Left knee pain, acute on chronic 2. Ambulatory dysfunction, acute on chronic Disposition: Admission Espinoza Garrett DO Emergency Medicine Past Med/Surg History Problem List (Updated 01/06/24 @ 20:36 by Espinoza Garrett DO) Ambulatory dysfunction (Acute) Ambulatory dysfunction Type 2 diabetes mellitus (Chronic) Seizure disorder (Chronic) Recurrent herpes labialis (Chronic) Hypothyroidism (Chronic) Hyperlipidemia (Chronic) Esophageal reflux (Chronic) B12 deficiency (Chronic) Chronic sinusitis (Chronic) Allergic rhinitis (Chronic) Medical History (Updated 01/06/24 @ 20:36 by Espinoza Garrett DO) Vitamin D deficiency History of CVA (cerebrovascular accident) lacunar infarct 09/2020>STILL HAS NUMBNESS IN RT HAND AND RT SIDE OF FACE Multiple pulmonary nodules stable on imaging - no further workup required Hx of brain cancer Right temporal glioma, s/p surgery, 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 Surgical History History of cataract surgery right Hx of colonoscopy Hx of tubal ligation Hx of section Hx of brain surgery 2000-[facility] Family History Grandmother Family history of diabetes mellitus Father Myocardial infarction Other No significant family history Denies family history of Ovarian cancer Prostate cancer Breast cancer Colorectal cancer Social History (Updated 06/24/23 @ 11:25 by Suly Rader LPN) Smoking Status: Never smoker Second Hand Exposure: No; Do You Dip or Chew Tobacco: No; Hx Alcohol Use: No Hx Substance Use: No Preferred Language: Kosovan Communication Ability: Effective Communication Ability Comment: TROUBLE HEARING OUT OF RIGHT SIDE Certified Anesthesiologist Assistant Required: No Beliefs That Will Affect Care: None marital status: Current Living Situation: Spouse and Personal Care Facility current occupational status: employed 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 Feels Safe at Home: Yes Childhood Exposure to Second-Hand Smoke: Yes Diet: regular caffeine: Yes (diet soda) Dental Care, Regularly: No Physical Activity Frequency: Does not Exercise Seatbelt Use: always Sunscreen Use: Yes Assistive Devices: Cane, Denture - Upper, Denture - Lower and Glasses Allergies Allergies Allergy/AdvReac Type Severity Reaction Status Date / Time Sulfa (Sulfonamide Allergy Intermediate ITCHING, Verified 01/06/24 17:34 Antibiotics) BURNING aspirin AdvReac Unknown TO AVOID Verified 01/06/24 17:34 -HX BRAIN TUMOR NOT TO TAKE Home Meds Home Medications Medication Instructions Recorded Confirmed acetaminophen 325 mg tablet 650 mg PO Q6 PRN Fever Or Pain 01/19/23 01/06/24 (Tylenol) aspirin 81 mg tablet,delayed 81 mg PO QDL 01/06/24 01/06/24 release atorvastatin 40 mg tablet 40 mg PO HS 01/06/24 01/06/24 clotrimazole-betamethasone 1 1 applic topical BID PRN Skin 01/06/24 01/06/24 %-0.05 % topical cream Irritation cyanocobalamin (vitamin B-12) 500 1,000 mcg PO QDL 01/06/24 01/06/24 mcg tablet levothyroxine 50 mcg tablet 50 mcg PO QAM 01/06/24 01/06/24 montelukast 10 mg tablet 10 mg PO QDL 01/06/24 01/06/24 (Singulair) omeprazole 20 mg capsule,delayed 20 mg PO QAM 01/06/24 01/06/24 release potassium chloride 20 mEq 20 meq PO QDL 01/06/24 01/06/24 tablet,extended release sennosides 8.6 mg tablet (Senokot) 17.2 mg PO QDL 01/06/24 01/06/24 thiamine HCl (vitamin B1) 100 mg 200 mg PO BIDM 01/06/24 01/06/24 tablet Previous Rx's Medication Instructions Recorded melatonin 3 mg tablet 3 mg PO HS #30 tabs 01/24/23 divalproex 125 mg tablet,delayed 375 mg (3 x 125 mg) PO BID 90 days 10/21/23 release (Depakote) #540 tabs Results & Data (ED) Vital Signs Vital Signs - 24 hr 01/06/24 12:27 01/06/24 17:37 01/06/24 17:37 Temperature 36.7 C Temperature Source Temporal Artery Scan Pulse Rate 106 H 73 Pulse Rate [Finger] 78 Pulse Rhythm [Finger] Regular Respiratory Rate 20 20 Respiratory Effort / Characteristics Non-Labored Spontaneous Respiratory Depth Normal Blood Pressure 124/72 Blood Pressure [Left Arm] 102/63 Blood Pressure Mean 89 Blood Pressure Mean [Left Arm] 76 Blood Pressure Position [Left Arm] Sitting Pulse Oximetry 95 97 Oxygen Delivery Method Room Air Sepsis Recent Fever Within 48 Hours No Sepsis New/Unexplained Change in Mental Status N/A Sepsis Action Taken by Nursing No Action Required 01/06/24 18:54 01/06/24 19:07 Temperature Temperature Source Pulse Rate Pulse Rate [Finger] 68 80 Pulse Rhythm [Finger] Respiratory Rate 20 20 Respiratory Effort / Characteristics Non-Labored Spontaneous Respiratory Depth Normal Normal Blood Pressure Blood Pressure [Left Arm] 119/72 111/76 Blood Pressure Mean Blood Pressure Mean [Left Arm] 87 87 Blood Pressure Position [Left Arm] Pulse Oximetry 97 96 Oxygen Delivery Method Room Air Room Air Sepsis Recent Fever Within 48 Hours Sepsis New/Unexplained Change in Mental Status Sepsis Action Taken by Nursing Laboratory Data 01/06/24 12:57 01/06/24 12:57 Lab Results 01/06/24 01/06/24 Range/Units 12:57 18:38 WBC 12.15 H (4.8-10.8) K/ul RBC 4.33 (4.20-5.40) M/uL Hgb 13.4 (12.0-16.0) g/dl Hct 39.1 (37.0-47.0) % MCV 90.3 (80.0-100.0) fL MCH 30.9 (25.0-34.0) pg MCHC 34.3 (32.0-36.0) g/dL RDW Std Deviation 41.3 (36.4-46.3) fL RDW Coeff of Juliet 12.5 (11.5-14.5) % Plt Count 153 (130-400) K/uL MPV 8.9 L (9.4-12.4) fL Immature Gran % (Auto) 0.6 % Neut % (Auto) 83.5 % Lymph % (Auto) 6.4 % [place] % (Auto) 9.2 % Eos % (Auto) 0.0 % Baso % (Auto) 0.3 % Neut # (Auto) 10.14 H (1.40-6.50) K/uL Lymph # (Auto) 0.78 L (1.20-3.40) K/uL [place] # (Auto) 1.12 H (0.11-0.59) K/uL Eos # (Auto) 0.00 (0.00-0.50) K/uL Baso # (Auto) 0.04 (0.00-0.20) K/uL Immature Gran # (Auto) 0.07 (0.01-0.20) K/uL Sodium 135 L (136-145) mmol/L Potassium 4.6 (3.5-5.1) mmol/L Chloride 99 (98-107) mmol/L Carbon Dioxide 27 (21-32) mmol/L Anion Gap 9 (3-11) BUN 10 (6-23) mg/dl Creatinine 0.77 (0.6-1.2) mg/dl Est Cr Clr Drug Dosing Not Reportable Est GFR ( Amer) 93.9 ml/min Est GFR (Non-Af Amer) 81.0 ml/min BUN/Creatinine Ratio 13.0 (10-20) Glucose 200 H (70-99(Fasting)) mg/dl Calcium 10.2 (8.6-10.3) mg/dl Total Bilirubin 0.8 (0.2-1.0) mg/dl AST 14 (13-39) U/L ALT 16 (7-52) U/L Alkaline Phosphatase 69 (34-104) U/L B-Natriuretic Peptide 17 (0-100) pg/ml Total Protein 7.7 (6.0-8.3) gm/dl Albumin 4.4 (3.4-5.0) gm/dl Globulin 3.3 (2.5-4.0) gm/dl Albumin/Globulin Ratio 1.3 (0.9-2) Valproic Acid < 10 L (50-100) mcg/ml Administered Medications Acetaminophen (Acetaminophen 325 Mg Tab) 650 mg PO Q4H PRN PRN Reason: pain/fever Stop: 02/05/24 18:10 Last Admin: 01/06/24 19:21 Dose: 650 mg Documented By: ALEKSANDRA Discontinued Medications Acetaminophen (Acetaminophen 500 Mg Tab) 1,000 mg PO NOW STA Stop: 01/06/24 18:01 Last Admin: 01/06/24 19:21 Dose: Not Given Documented By: JW Imaging Data Radiologist's Impression: Knee X-Ray 01/06/24 12:32 LEFT KNEE 2 VIEWS CLINICAL HISTORY: Fall. Left knee injury. FINDINGS: AP and crosstable lateral views of the left knee are obtained. No prior studies are available for comparison at the time of dictation. The skeletal structures are heterogeneously osteopenic. No fracture is seen. There is minimal degenerative joint space narrowing. A small joint effusion is suspected. The overlying soft tissues are within normal limits. IMPRESSION: No acute bony abnormality is identified. Electronically signed by: Leonides Partida M.D. 01/06/2024 2:33 PM Venous Doppler Study 01/06/24 15:35 LEFT LOWER EXTREMITY VENOUS DOPPLER HISTORY: Left lower leg pain eval for dvt COMPARISON STUDY: None. FINDINGS: There is normal compressibility, flow, and augmentation within the left lower extremity deep venous system. IMPRESSION: No DVT within the left lower extremity. ACT 112: Negative or not required by law. Electronically signed by: Khurram Loredo M.D. 01/06/2024 5:03 PM Discharge Plan Visit Data Chief Complaint: Weakness Stated Complaint: L LEG WEAKNESS FROM KNEE DOWN ED Provider: Espinoza Garrett Discharge Problem: Ambulatory dysfunction Patient Disposition: Admitted As Inpatient Discharge Instructions Interventions: ED Discharge Assessment Last Done: 01/06/24 20:02 Forms Stand Alone Forms: [facility] Prescriptions Prescriptions: No Action divalproex [Depakote] 125 mg tablet,delayed release (DR/EC) 375 mg PO BID 90 Days Qty: 540 3RF Rx Instructions: TAKES AT NOON & HS acetaminophen [Tylenol] 325 mg Tablet 650 mg PO Q6 PRN (Reason: Fever Or Pain) melatonin 3 mg tablet 3 mg PO HS Qty: 30 0RF atorvastatin 40 mg tablet 40 mg PO HS sennosides [Senokot] 8.6 mg tablet 17.2 mg PO QDL thiamine HCl (vitamin B1) 100 mg tablet 200 mg PO BIDM Rx Instructions: TAKES AT NOON AND SUPPER aspirin 81 mg tablet,delayed release (DR/EC) 81 mg PO QDL cyanocobalamin (vitamin B-12) 500 mcg tablet 1,000 mcg PO QDL levothyroxine 50 mcg tablet 50 mcg PO QAM clotrimazole-betamethasone 1-0.05 % cream 1 applic topical BID PRN (Reason: Skin Irritation) omeprazole 20 mg capsule,delayed release(DR/EC) 20 mg PO QAM montelukast [Singulair] 10 mg tablet 10 mg PO QDL potassium chloride 20 mEq tablet extended release 20 meq PO QDL Referrals Referrals: Aleshia Morton MD [Primary Care Provider] -
--- NOTE | 2024-01-06 17:05 | Ultrasound Report ---
LEFT LOWER EXTREMITY VENOUS DOPPLER HISTORY: Left lower leg pain eval for dvt COMPARISON STUDY: None. FINDINGS: There is normal compressibility, flow, and augmentation within the left lower extremity wayne p venous system. IMPRESSION: No DVT within the left lower extremity. ACT 112: Negative or not required by law. Electronically signed by: Khurram Loredo M.D. 01/06/2024 5:03 PM
--- NOTE | 2024-01-06 17:49 | History & Physical Report ---
Date of Service January 06, 2024 Assessment & Plan (1) Ambulatory dysfunction: Plan: Presents after being unable to get up after legs gave out, did not hit her head and chronic knee pain. + urinary symptoms, no pulmonary or abdominal concerns for infection - Left knee xray - no fracture - Left LE Doppler - no DVT Slight WBC at 12 - Check UA Tylenol for pain control Check BNP - given recent increase salt intake PT/OT consulted CM consulted - patient would like to go to inpatient rehab AM CBC and BMP (2) Seizure disorder: Plan: With hx of brain cancer and resection - no focal neuro deficits on exam - continue Depakote - check valproic acid level (3) Type 2 diabetes mellitus: Plan: Patient not on any home medications, A1c 6.4 on 12/22 - Will defer BSG and SSI, unless we determine infectious source. monitor with AM BMP Plan Chronic stable medical conditions: - Vitamin b12 deficiency - continue supplementation - Vitamin B1 deficiency - continue supplementation - hypothyroid - continue Synthroid - HLD - continue statin Dispo: med surg Dvt proh: lovenox Family updated at bedside History of Present Illness Chief Complaint: Knee pain Primary Care Provider: Aleshia Morton MD Ashley is a 63F with a history of CVA, seizure disorder and hx of brain mass, DM, chronic dysarthria, B12 deficiency, hypothyroidism, GERD who presents with worsening of her chronic knee pain and with a fall today that she was unable to get up from. had to call help. She did not hit her head, no prodromal symptoms, legs just gave out on her. She was at the [facility] fair all last week and used a scooter, does not normally have to use a scooter. Thinks her normal weight is around 200 lbs. chronic knee pain, she treat this with Tylenol at home. Has not taken any tylenol today, but did take her morning medications. Denies cough, shortness of breath, sick contacts, fevers or chills. She does report urinary frequency. Allergies Allergy/AdvReac Type Severity Reaction Status Date / Time Sulfa (Sulfonamide Allergy Intermediate ITCHING, Verified 01/06/24 17:34 Antibiotics) BURNING aspirin AdvReac Unknown TO AVOID Verified 01/06/24 17:34 -HX BRAIN TUMOR NOT TO TAKE Home Medications Medication Instructions Recorded Confirmed Type acetaminophen 325 mg tablet 650 mg PO Q6 PRN Fever Or Pain 01/19/23 01/06/24 History (Tylenol) melatonin 3 mg tablet 3 mg PO HS #30 tabs 01/24/23 01/06/24 Rx divalproex 125 mg tablet,delayed 375 mg (3 x 125 mg) PO BID 90 days 10/21/23 01/06/24 Rx release (Depakote) #540 tabs aspirin 81 mg tablet,delayed 81 mg PO QDL 01/06/24 01/06/24 History release atorvastatin 40 mg tablet 40 mg PO HS 01/06/24 01/06/24 History clotrimazole-betamethasone 1 1 applic topical BID PRN Skin 01/06/24 01/06/24 History %-0.05 % topical cream Irritation cyanocobalamin (vitamin B-12) 500 1,000 mcg PO QDL 01/06/24 01/06/24 History mcg tablet levothyroxine 50 mcg tablet 50 mcg PO QAM 01/06/24 01/06/24 History montelukast 10 mg tablet 10 mg PO QDL 01/06/24 01/06/24 History (Singulair) omeprazole 20 mg capsule,delayed 20 mg PO QAM 01/06/24 01/06/24 History release potassium chloride 20 mEq 20 meq PO QDL 01/06/24 01/06/24 History tablet,extended release sennosides 8.6 mg tablet (Senokot) 17.2 mg PO QDL 01/06/24 01/06/24 History thiamine HCl (vitamin B1) 100 mg 200 mg PO BIDM 01/06/24 01/06/24 History tablet Past Med/Surg History Problem List (Updated 01/06/24 @ 18:10 by Saadia Justin PA-C) Ambulatory dysfunction Type 2 diabetes mellitus (Chronic) Seizure disorder (Chronic) Recurrent herpes labialis (Chronic) Hypothyroidism (Chronic) Hyperlipidemia (Chronic) Esophageal reflux (Chronic) B12 deficiency (Chronic) Chronic sinusitis (Chronic) Allergic rhinitis (Chronic) Medical History (Updated 01/06/24 @ 18:10 by Saadia Justin PA-C) Vitamin D deficiency History of CVA (cerebrovascular accident) lacunar infarct 09/2020>STILL HAS NUMBNESS IN RT HAND AND RT SIDE OF FACE Multiple pulmonary nodules stable on imaging - no further workup required Hx of brain cancer Right temporal glioma, s/p surgery, 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 Surgical History History of cataract surgery right Hx of colonoscopy Hx of tubal ligation Hx of section Hx of brain surgery 2000-[facility] Family History Grandmother Family history of diabetes mellitus Father Myocardial infarction Other No significant family history Denies family history of Ovarian cancer Prostate cancer Breast cancer Colorectal cancer Social History (Updated 06/24/23 @ 11:25 by Suly Rader LPN) Smoking Status: Never smoker Second Hand Exposure: No; Do You Dip or Chew Tobacco: No; Hx Alcohol Use: No Hx Substance Use: No Preferred Language: Lao Communication Ability: Effective Communication Ability Comment: TROUBLE HEARING OUT OF RIGHT SIDE 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 Beliefs That Will Affect Care: None marital status: Current Living Situation: Spouse and Personal Care Facility current occupational status: employed 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 Feels Safe at Home: Yes Childhood Exposure to Second-Hand Smoke: Yes Diet: regular caffeine: Yes (diet soda) Dental Care, Regularly: No Physical Activity Frequency: Does not Exercise Seatbelt Use: always Sunscreen Use: Yes Assistive Devices: Cane, Denture - Upper, Denture - Lower and Glasses Review of Systems Review of Systems: All systems reviewed & are unremarkable except as noted in Subjective Physical Exam Physical Exam: General: NAD, VS as above Resp: normal respiratory effort, lungs clear to auscultation CV: RRR, no murmur, Abd: normal bowel sounds, non tender, no hepatosplenomegaly Extremities: Moves all extremities, left knee slightly tender to palpation, no focal tenderness, no erythema or warmth. Bilateral LE strength 4/5 Neuro: A&O x3, no focal deficits Skin: intact, no lesions noted Results & Data Results & Data Vital Signs (Past 12 Hours) Vital Signs Temp Pulse Pulse Resp BP BP Pulse Ox 01/06/24 17:37 73 01/06/24 17:37 78 20 102/63 97 01/06/24 12:27 36.7 C 106 H 20 124/72 95 O2 Del Method 01/06/24 17:37 01/06/24 17:37 Room Air 01/06/24 12:27 Laboratory Results CBC and chemistry reviewed Diagnostic Findings LE doppler and Knee xray reviewed Supervising Physician Co-Signing Physician Notes Patient seen and examined, chart reviewed, case discussed with Saadia Justin PA-C and I agree with the assessment and plan as above except as otherwise noted Labs and images reviewed 63-year-old female with acute on chronic weakness suspected deconditioning. Prior history of brain cancer with resection. Denies new focal deficits, feels globally weak. No UTI symptoms. Denies fever, chills, sweats. No orthopnea. No cough. PT/OT pending. Agree with above PG Care Time/CCT Total # of Minutes Spent Total Time Spent with Patient: Total time spent is greater than 50% in coordination of care (as documented) at patient's floor/unit and/or counseling patient: Coding Level of Care Code 78018 INT INP/OBS CARE 3/75MIN Diagnoses Ambulatory dysfunction R26.2 Seizure disorder G40.909 Type 2 diabetes mellitus E11.9
[2024-01-06] MEDS: ACETAMINOPHEN 325 MG TAB PO PRN (19:21)
[2024-01-06] MEDS: ACETAMINOPHEN 500 MG TAB PO STA (19:21)
[2024-01-06] MEDS: DIVALPROEX DELAY RELEASE 125 MG TABEC PO SCH (21:36)
[2024-01-06] MEDS: ATORVASTATIN 40 MG TAB PO SCH (21:37)
[2024-01-06] MEDS: MELATONIN 3 MG TAB PO SCH (21:37)
[2024-01-07 04:21] LABS: Appearance Urine Cloudy (Clear); Bacteria Urine Automated None Seen (None Seen); Bilirubin Urine Negative (Negative); Blood Urine Negative (Negative); Cast Urine Automated 0-2 /lpf (0-2); Color Urine Yellow; Glucose Urine UA Negative (Negative); Ketones Urine Negative (Negative); Leukocyte Esterase Urine 1+ (Negative); Nitrite Urine Negative (Negative); Protein Urine Negative (Negative); RBC Urine Automated 0-2 /hpf (0-2); Specific Gravity Urine 1.014 (1.000-1.030); Urobilinogen Urine Negative (Negative)
[2024-01-07] MEDS: LEVOTHYROXINE SODIUM 50 MCG TABLET PO SCH (05:46)
[2024-01-07 08:20] LABS: Basophils # (auto) 0.03 K/uL (0.00-0.20); Basophils % (auto) 0.3 %; Hematocrit (blood only) 32.6 % (37.0-47.0); Hemoglobin 11.5 g/dl (12.0-16.0); Immature Granulocytes # (auto) 0.05 K/uL (0.01-0.20); Immature Granulocytes % (auto) 0.5 %; Lymphocytes # (auto) 1.79 K/uL (1.20-3.40); Lymphocytes % (auto) 17.5 %; Mean Corpuscular Hemoglobin 31.5 pg (25.0-34.0); Mean Corpuscular Hgb Conc 35.3 g/dL (32.0-36.0); Mean Corpuscular Volume 89.3 fL (80.0-100.0); Mean Platelet Volume 8.9 fL (9.4-12.4); Monocytes # (auto) 0.81 K/uL (0.11-0.59); Monocytes % (auto) 7.9 %; Neutrophils # (auto) 7.56 K/uL (1.40-6.50); Neutrophils % (auto) 73.8 %; Platelet Count 147 K/uL (130-400); RDW Coefficient of Variation 12.7 % (11.5-14.5); RDW Standard Deviation 41.4 fL (36.4-46.3); Red Blood Count 3.65 M/uL (4.20-5.40); White Blood Count 10.24 K/ul (4.8-10.8)
[2024-01-07 08:45] LABS: BUN Creatinine Ratio 17.9 (10-20); Calcium 9.4 mg/dl (8.6-10.3); Creatinine Clr Calc Pharmacy 83.5 ml/min; Est GFR (African American) 106.9 ml/min; Est GFR (Non-African American) 92.2 ml/min; Potassium 3.9 mmol/L (3.5-5.1)
[2024-01-07] MEDS: THIAMINE HCL 100 MG TAB PO SCH (09:10)
[2024-01-07] MEDS: PANTOprazole 40 MG TAB PO SCH (09:10)
[2024-01-07] MEDS: SENNA 8.6 MG TAB PO SCH (12:32)
[2024-01-07] MEDS: CYANOCOBALAMIN (B-12) 500 MCG TABLET PO SCH (12:32)
[2024-01-07] MEDS: MONTELUKAST SODIUM 10 MG TABLET PO SCH (12:32)
[2024-01-07] MEDS: ASPIRIN 81 MG ECTAB PO SCH (12:33)
--- NOTE | 2024-01-07 14:52 | Hospitalist Progress Note ---
Date of Service January 07, 2024 Assessment & Plan (1) Ambulatory dysfunction: Plan: Presents after being unable to get up after legs gave out, did not hit her head and chronic knee pain. + urinary symptoms, no pulmonary or abdominal concerns for infection - Left knee xray - no fracture - Left LE Doppler - no DVT - Slight WBC at 12, now WNL - UA without infection Tylenol for pain control Check BNP - given recent increase salt intake - WNL PT/OT consulted CM consulted - patient would like to go to inpatient rehab (2) Seizure disorder: Plan: With hx of brain cancer and resection - no focal neuro deficits on exam - continue Depakote - valproic acid level < 10 Patient has had prior WARE TESTER evaluations and VSS showing moderate-severe oropharyngeal dysphia and silent asprirations. No diet to eliminate this but recommend minced and moist/pureed and mildly thick liquids OR patient is accepting the risk of aspiration. (this was preformed 01/2023 after admission for pneumonia) - Does not make any food texture modifications at home and no evidence of pneumonia this visit - diet changed to easy to chew - aspiration precautions added (3) Type 2 diabetes mellitus: Plan: Patient not on any home medications, A1c 6.4 on 12/22 - Will defer BSG and SSI, no infectious source, no receiving steroids Plan Chronic stable medical conditions: - Vitamin b12 deficiency - continue supplementation - Vitamin B1 deficiency - continue supplementation - hypothyroid - TSH recently normal in 12/2023, continue Synthroid - HLD - continue statin Dispo: continued inpatient stay determining dispo with PT and CM Dvt proh: maria guadalupe Family updated at bedside 01/05 & 01/06 Admission and Anticipated Discharge Date Admission Date: January 06, 2024 Supervising Physician Co-Signing Physician Notes KASSIE Supervision Note: I did not personally see or examine the patient today, but I verified all cisneros points of KASSIE Justin's assessment and plan with the following exceptions/additions: None Subjective Patient seen multiple times throughout the day. She states that she is feeling better from when she came in. She would prefer to go home but understands that she probably does not have the help she needs at home and is agreeable to rehab. Case management aware. I discussed with her the previous results of this video swallow study that she had prior, she states that she does not make any modifications to her food at home. Does not limit certain foods and does not pure foods at home Review of Systems Review of Systems: All systems reviewed & are unremarkable except as noted in Subjective Physical Exam Physical Exam: General: NAD, VS as above, sitting up in the chair Resp: normal respiratory effort, lungs clear to auscultation CV: RRR, no murmur, Neuro: A&O x3, no focal deficits Results & Data Results & Data Vital Signs (Past 12 Hours) Vital Signs Temp Pulse Resp BP Pulse Ox O2 Del Method 01/07/24 14:20 36.4 C L 64 16 114/73 100 Room Air 01/07/24 07:36 36.5 C 65 16 125/68 98 Room Air Laboratory Results CBC and chemistry reviewed PG Care Time/CCT Total # of Minutes Spent Total Time Spent with Patient: Total time spent is greater than 50% in coordination of care (as documented) at patient's floor/unit and/or counseling patient: Coding Level of Care Code 64929 SUB INP/OBS CARE 3/50MIN Diagnoses Ambulatory dysfunction R26.2 Seizure disorder G40.909 Type 2 diabetes mellitus E11.9
--- NOTE | 2024-01-08 13:57 | Hospitalist Progress Note ---
Date of Service January 08, 2024 Assessment & Plan (1) Ambulatory dysfunction: Plan: Presents after being unable to get up after legs gave out, did not hit her head and chronic knee pain. + urinary symptoms, no pulmonary or abdominal concerns for infection - Left knee xray - no fracture - Left LE Doppler - no DVT - Slight WBC at 12, now WNL - UA without infection Tylenol for pain control Check BNP - given recent increase salt intake - WNL PT/OT consulted - recommending rehab - CM following, denied [facility] doesn't take insurance. hoping for [facility] (2) Seizure disorder: Plan: With hx of brain cancer and resection - no focal neuro deficits on exam - continue Depakote - valproic acid level < 10 Patient has had prior CLOTH WASHER OPERATOR evaluations and VSS showing moderate-severe oropharyngeal dysphia and silent asprirations. No diet to eliminate this but recommend minced and moist/pureed and mildly thick liquids OR patient is accepting the risk of aspiration. (this was preformed 01/2023 after admission for pneumonia) - Does not make any food texture modifications at home and no evidence of pneumonia this visit - diet changed to easy to chew - aspiration precautions added (3) Type 2 diabetes mellitus: Plan: Patient not on any home medications, A1c 6.4 on 12/22 - Will defer BSG and SSI, no infectious source, no receiving steroids Plan Chronic stable medical conditions: - Vitamin b12 deficiency - continue supplementation - Vitamin B1 deficiency - continue supplementation - hypothyroid - TSH recently normal in 12/2023, continue Synthroid - HLD - continue statin Dispo: continued inpatient stay awaiting placement Dvt proh: lovenox Family updated at bedside 01/05 & 01/06 Admission and Anticipated Discharge Date Admission Date: January 06, 2024 Supervising Physician Co-Signing Physician Notes Attending Attestation - Chart reviewed, care plan d/w KASSIE Justin. I agree w/ the cisneros components of her documentation. Clifton Zimmerman MD Subjective Patient seen sitting up in the bed. She tells me she was able to walk to the bathroom today no new pain good appetite Review of Systems Review of Systems: All systems reviewed & are unremarkable except as noted in Subjective Physical Exam Physical Exam: General: NAD, VS as above Resp: normal respiratory effort, lungs clear to auscultation CV: RRR, no murmur, Abd: normal bowel sounds, non tender, no hepatosplenomegaly Extremities: Moves all extremities, trace edema Neuro: A&O x3, Results & Data Results & Data Vital Signs (Past 12 Hours) Vital Signs Temp Pulse Resp BP Pulse Ox O2 Del Method 01/08/24 12:39 36.4 C L 76 14 122/70 94 Room Air 01/08/24 08:46 36.7 C 68 18 132/70 96 Room Air PG Care Time/CCT Total # of Minutes Spent Total Time Spent with Patient: Total time spent is greater than 50% in coordination of care (as documented) at patient's floor/unit and/or counseling patient: Coding Level of Care Code 62535 SUB INP/OBS CARE 06/04MIN Diagnoses Ambulatory dysfunction R26.2 Seizure disorder G40.909 Type 2 diabetes mellitus E11.9
--- NOTE | 2024-01-09 10:27 | Hospitalist Progress Note ---
Date of Service January 09, 2024 Assessment & Plan (1) Ambulatory dysfunction: Plan: Presents after being unable to get up after legs gave out, did not hit her head and chronic knee pain. Reported increased urinary frequency prior to admission; no pulmonary or abdominal concerns for infection. 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 No diet to eliminate this but recommend minced and moist/pureed and mildly thick liquids OR patient is accepting the risk of aspiration. (this was preformed 01/2023 after admission for pneumonia) - Does not make any food texture modifications at home and no evidence of pneumonia this visit - Diet changed to easy to chew - Aspiration precautions added (3) Type 2 diabetes mellitus: Plan: Patient not on any home medications, A1c 6.4 on 12/22 - Will defer BSG and SSI, no infectious source, no receiving steroids Plan Chronic stable medical conditions: - Vitamin b12 deficiency - continue supplementation - Vitamin B1 deficiency - continue supplementation - Hypothyroid - TSH recently normal in 12/2023, continue Synthroid - HLD - continue statin Dispo: continued inpatient stay awaiting placement Dvt proh: lovenox CODE STATUS: Full code Family updated at bedside 01/05 & 01/06 Admission and Anticipated Discharge Date Admission Date: January 08, 2024 Supervising Physician Co-Signing Physician Notes PA Supervision Note: I did not personally see or examine the patient today, but I verified all cisneros points of KASSIE Solano' assessment and plan with the following exceptions/additions: None Subjective Patient seen and evaluated at bedside. Reports that she is feeling well, denies any pain at this time. [facility]. No additional complaints or concerns at this time. Physical Exam Physical Exam: General: No acute distress, nondiaphoretic, well-developed, well-nourished. Cardiac: Regular rate and rhythm without murmurs gallops or rubs. Pulm: Clear to auscultation bilaterally without wheezes, rales or rhonchi. No respiratory distress. 94% on room air. Abdominal: Soft, nontender, nondistended. Bowel sounds present. Neuro: A&O x3. No focal neurological deficits. Results & Data Results & Data Vital Signs (Past 12 Hours) Vital Signs Temp Pulse Resp BP Pulse Ox O2 Del Method 01/09/24 07:09 36.6 C 72 16 95/62 L 95 Room Air PG Care Time/CCT Total # of Minutes Spent Total Time Spent with Patient: Total time spent is greater than 50% in coordination of care (as documented) at patient's floor/unit and/or counseling patient: Coding Level of Care Code 07367 SUB INP/OBS CARE 1/25MIN Diagnoses Ambulatory dysfunction R26.2 Seizure disorder G40.909 Type 2 diabetes mellitus E11.9
--- NOTE | 2024-01-10 09:25 | Hospitalist Progress Note ---
Date of Service January 10, 2024 Assessment & Plan (1) Ambulatory dysfunction: Plan: Presents after being unable to get up after legs gave out, did not hit her head and chronic knee pain. Reported increased urinary frequency prior to admission; no pulmonary or abdominal concerns for infection. - Left knee xray - no fracture - Left LE Doppler - no DVT - Slight leukocytosis at 12 on admission, now resolved - UA without infection - Tylenol for pain control - Reported dietary indiscretion at [employer] prior to admission, BNP WNL at 17 - PT/OT consulted - recommending rehab > CM following - [facility] denied, [facility] doesn't take insurance, [facility] said they could accept but not until 01/11 or 01/12 (2) Seizure disorder: Plan: With hx of brain cancer and resection - No focal neuro deficits on exam - Continue Depakote - Valproic acid level < 10 Patient has had prior B AND B GANG WORKER 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 No diet to eliminate this but recommend minced and moist/pureed and mildly thick liquids OR patient is accepting the risk of aspiration (this was preformed 01/2023 after admission for pneumonia). - Does not make any food texture modifications at home and no evidence of pneumonia this visit - Diet changed to easy to chew - Aspiration precautions added (3) Type 2 diabetes mellitus: Plan: Patient not on any home medications, A1c 6.4 on 12/22 - Will defer BSG and SSI, no infectious source, not receiving steroids Plan Chronic stable medical conditions: - Vitamin b12 deficiency - continue supplementation - Vitamin B1 deficiency - continue supplementation - Hypothyroid - TSH recently normal in 12/2023, continue Synthroid - HLD - continue statin Dispo: continued inpatient stay awaiting placement Dvt proh: lovenox CODE STATUS: Full code Family updated at bedside 01/05 & 01/06 Admission and Anticipated Discharge Date Admission Date: January 08, 2024 Supervising Physician Co-Signing Physician Notes PA Supervision Note: I did not personally see or examine the patient today, but I verified all cisneros points of KASSIE Solano' assessment and plan with the following exceptions/additions: None Subjective Patient seen and evaluated at bedside. She reports that her appetite is good. Denies any pain, headache, bladder/bowel issues. She does note that she did not sleep well last night. She is eager for placement. No additional complaints or concerns at this time. Physical Exam Physical Exam: General: No acute distress, nondiaphoretic, well-developed, well-nourished. Cardiac: Regular rate and rhythm without murmurs gallops or rubs. Pulm: Clear to auscultation bilaterally without wheezes, rales or rhonchi. No respiratory distress. 98% on room air. Abdominal: Soft, nontender, nondistended. Bowel sounds present. Neuro: A&O x3. No focal neurological deficits. Results & Data Results & Data Vital Signs (Past 12 Hours) Vital Signs Temp Pulse Resp BP Pulse Ox O2 Del Method 01/10/24 07:54 36.7 C 61 16 100/63 94 Room Air PG Care Time/CCT Total # of Minutes Spent Total Time Spent with Patient: Total time spent is greater than 50% in coordination of care (as documented) at patient's floor/unit and/or counseling patient: Coding Level of Care Code 18695 SUB INP/OBS CARE 1/25MIN Diagnoses Ambulatory dysfunction R26.2 Seizure disorder G40.909 Type 2 diabetes mellitus E11.9
--- NOTE | 2024-01-11 08:53 | Hospitalist Progress Note ---
Date of Service January 11, 2024 Assessment & Plan (1) Ambulatory dysfunction: Plan: Presents after being unable to get up after legs gave out, did not hit her head and chronic knee pain. Reported increased urinary frequency prior to admission; no pulmonary or abdominal concerns for infection. - Left knee xray - no fracture - Left LE Doppler - no DVT - Slight leukocytosis at 12 on admission, now resolved - UA without infection - Tylenol for pain control - Reported dietary indiscretion at [employer] prior to admission, BNP WNL at 17 - PT/OT consulted - recommending rehab > CM following - [facility] denied, [facility] doesn't take insurance, [facility] said they could accept but not until 01/11 or 01/12 - Reported tenderness of right index finger 01/09. This is the hand patient was holding her cane with when she fell. > Able to flex and extend against resistance at PIP and DIP. Some minor redness at the right index distal phalanx was noted, no swelling appreciated. Tenderness is not worse with activity. > Rest and ice as needed. Continue to monitor. (2) Seizure disorder: Plan: With hx of brain cancer and resection - No focal neuro deficits on exam - Continue Depakote - Valproic acid level < 10 Patient has had prior ETL BI DEVELOPER 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 No diet to eliminate this but recommend minced and moist/pureed and mildly thick liquids OR patient is accepting the risk of aspiration (this was preformed 01/2023 after admission for pneumonia). - Does not make any food texture modifications at home and no evidence of pneumonia this visit - Diet changed to easy to chew - Aspiration precautions added (3) Type 2 diabetes mellitus: Plan: Patient not on any home medications, A1c 6.4 on 12/22 - Will defer BSG and SSI, no infectious source, not receiving steroids Plan Chronic stable medical conditions: - Vitamin b12 deficiency - continue supplementation - Vitamin B1 deficiency - continue supplementation - Hypothyroid - TSH recently normal in 12/2023, continue Synthroid - HLD - continue statin Dispo: continued inpatient stay awaiting placement Dvt proh: lovenox CODE STATUS: Full code Family updated at bedside 01/05 & 01/06 Admission and Anticipated Discharge Date Admission Date: January 08, 2024 Supervising Physician Co-Signing Physician Notes PA Supervision Note: I did not personally see or examine the patient today, but I verified all cisneros points of KASSIE Solano' assessment and plan with the following exceptions/additions: None Subjective Patient seen and evaluated at bedside. She reports that she is feeling well overall, but has some tenderness to her right index finger. She states that this began yesterday but thought that it would go away. She does note that this was the hand she was holding her cane with when she fell. She is able to flex and extend her DIP and PIP without worsened pain. She reports the pain/tenderness is the same with rest and with activity. Denies any other complaints at this time. She has not been out of bed yet today. She notes that she was able to ambulate to and from the bathroom yesterday. Continue to wait for bed placement at rehab. Physical Exam Physical Exam: General: No acute distress, nondiaphoretic, well-developed, well-nourished. Skin: Right index finger tenderness. Able to flex and extend against resistance at DIP and PIP. Some minor redness at distal phalanx, no swelling noted. Cap refill <3 seconds. Cardiac: Regular rate and rhythm without murmurs gallops or rubs. Pulm: Clear to auscultation bilaterally without wheezes, rales or rhonchi. No respiratory distress. 98% on room air. Abdominal: Soft, nontender, nondistended. Bowel sounds present. Neuro: A&O x3. No focal neurological deficits. Results & Data Results & Data Vital Signs (Past 12 Hours) Vital Signs Temp Pulse Resp BP Pulse Ox O2 Del Method 01/10/24 21:00 36.4 C L 66 16 119/69 98 Room Air PG Care Time/CCT Total # of Minutes Spent Total Time Spent with Patient: Total time spent is greater than 50% in coordination of care (as documented) at patient's floor/unit and/or counseling patient: Coding Level of Care Code 46310 SUB INP/OBS CARE 2/35MIN Diagnoses Ambulatory dysfunction R26.2 Seizure disorder G40.909 Type 2 diabetes mellitus E11.9
[2024-01-12 08:20] LABS: Hematocrit (blood only) 34.3 % (37.0-47.0); Hemoglobin 11.8 g/dl (12.0-16.0); Mean Corpuscular Hemoglobin 31.5 pg (25.0-34.0); Mean Corpuscular Hgb Conc 34.4 g/dL (32.0-36.0); Mean Corpuscular Volume 91.5 fL (80.0-100.0); Mean Platelet Volume 8.7 fL (9.4-12.4); Platelet Count 179 K/uL (130-400); RDW Coefficient of Variation 12.8 % (11.5-14.5); Red Blood Count 3.75 M/uL (4.20-5.40); White Blood Count 5.69 K/ul (4.8-10.8)
--- NOTE | 2024-01-12 08:45 | Hospitalist Progress Note ---
Date of Service January 12, 2024 Assessment & Plan (1) Ambulatory dysfunction: Plan: Presents after being unable to get up after legs gave out, did not hit her head and chronic knee pain. Reported increased urinary frequency prior to admission; no pulmonary or abdominal concerns for infection. - Left knee xray - no fracture - Left LE Doppler - no DVT - Slight leukocytosis at 12 on admission, now resolved - UA without infection - Tylenol for pain control - Reported dietary indiscretion at [employer] [employer] prior to admission, BNP WNL at 17 - PT/OT consulted - recommending rehab > CM following - [facility] denied, [facility] doesn't take insurance, [facility] said they could accept but not until 01/11 or 01/12 - Reported tenderness of right index finger 01/09. This is the hand patient was holding her cane with when she fell. > Able to flex and extend against resistance at PIP and DIP. Some minor redness at the right index distal phalanx was noted, no swelling appreciated. Tenderness is not worse with activity. > Rest and ice as needed. Continue to monitor. 01/11 OF NOTE, PATIENT W CHROINC NUMBNESS/TINGLING in her RIGHT hand/finger per prior Neuro notes. UNCHANGED Review of labs w/ Depakote < 10. * Review outpatient Neuro note from October and prior depakote level was NORMAL at 68. * ?was patient compliant with such. Suspect must have been missing doses. Discussed w/ her primary neurologist regarding lab value and if NOT taking, would continue current 375mg BID dosing and repeat level in 7-10 days to make sure stable. IF ADAMANT she has been compliant with such, recs to increase to 500mg BID w/ close f/u and recheck to ensure level does not become toxic as well * PATIENT HAS REPORTED COMPLIANCE * --> PLANS TO INCREASE TO 500mg PO BID. Will need repeat depakote levels at dis charge to ensure staying stable/not becoming toxic in the next 3-5 days. * Outpatient Neurology f/u to be arranged at discharge as well UA negative, Lyme negative Repeat therapy evals today, CM following. To send for authorization for [facility] (no bed today reported). able to transport tomorrow hopefully if auth received. Mag checked given legs giving out/prior LOW 0.9 and no check since 2022 --> MAG LOW 1.6, 2gm IV replacement ordered. (2) Seizure disorder: Plan: With hx of brain cancer and resection - No focal neuro deficits on exam - Continue Depakote - Valproic acid level < 10 Reports compliance, so as above will plan to increase depakote to 500mg PO BID. 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 No diet to eliminate this but recommend minced and moist/pureed and mildly thick liquids OR patient is accepting the risk of aspiration (this was preformed 01/2023 after admission for pneumonia). - Does not make any food texture modifications at home and no evidence of pneumonia this visit - Diet changed to easy to chew - Aspiration precautions added (3) Type 2 diabetes mellitus: Plan: Patient not on any home medications, A1c 6.4 on 12/22 AM checks added in case, can add SSI if needed but not having infection/getting additional steroids at present. Monitor (4) Hypomagnesemia: Plan: checked as above given prior lows/weakness on admission. Low 1.6, IV replacement ordered and will monitor in AM Plan Chronic stable medical conditions: - Vitamin b12 deficiency - continue supplementation - Vitamin B1 deficiency - continue supplementation - Hypothyroid - TSH recently normal in 12/2023, continue Synthroid - HLD - continue statin Dispo: continued inpatient stay awaiting placement Dvt proh: lovenox CODE STATUS: Full code Family updated at bedside 01/05 & 01/06 . She is calling w/ update today as no beds at [facility]. CM to apply for auth today once repeat therapy evals received and plan for dc to [facility] when bed available. Will need increased depakote and level check at [facility] [place] w/ makenzie and Dr Higgins follow up at [facility]. Admission and Anticipated Discharge Date Admission Date: January 08, 2024 Supervising Physician Co-Signing Physician Notes The patient was not seen by me. The chart was reviewed. Case discussed with KASSIE Mensah. Agree with assessment and plan Subjective Evaluated this morning, doing well. Reports feeling better than when she came in. [facility], no bed today. CM to apply for auth. She reports it's a good thing because "my can't take me over there today.". Inquired about depakote. She reports she has been compliant. Discussed depakote level < [address] Higgins and plans to increase her depakote to 500mg BID and repeat level following to ensure not becoming too elevated as well. No fever/chills, chest pain, shortness of breath. Eating/drinking. Moving her bowels. Questions/concerns addressed at this time. Physical Exam Physical Exam: General: No acute distress,, well-developed, well-nourished. + obese HEENT; head atraumatic, normocephalic, mmm, trachea midline Resp: even/unlabored, slightly diminished in the bases but no w/c/r, on room air CV: RRR< no significant mrg, no pitting edema, calves nontender/pulses present GI: +BS, soft/NT : no pereira MSK/Neuro: generalized weakness but nonfocal, following commands slight R hand numbness/tingling at baseline since her prior incident (unchanged), Psych: AOx3, cooperative with exam Results & Data Results & Data Vital Signs (Past 12 Hours) Vital Signs Temp Pulse Resp BP Pulse Ox O2 Del Method 01/12/24 07:57 Room Air 01/12/24 07:14 36.5 C 64 16 107/71 96 Room Air 01/11/24 20:50 Room Air Laboratory Results 01/12/24 01/12/24 01/12/24 Range/Units 09:51 08:47 07:41 WBC 5.69 (4.8-10.8) K/ul RBC 3.75 L (4.20-5.40) M/uL Hgb 11.8 L (12.0-16.0) g/dl Hct 34.3 L (37.0-47.0) % MCV 91.5 (80.0-100.0) fL MCH 31.5 (25.0-34.0) pg MCHC 34.4 (32.0-36.0) g/dL RDW Std Deviation 42.0 (36.4-46.3) fL RDW Coeff of Juliet 12.8 (11.5-14.5) % Plt Count 179 (130-400) K/uL MPV 8.7 L (9.4-12.4) fL Sodium 134 L (136-145) mmol/L Potassium 3.7 (3.5-5.1) mmol/L Chloride 98 (98-107) mmol/L Carbon Dioxide 29 (21-32) mmol/L Anion Gap 7 (3-11) BUN 9 (6-23) mg/dl Creatinine 0.68 (0.6-1.2) mg/dl Est Cr Clr Drug Dosing 82.3 ml/min Est GFR ( Amer) 106.4 ml/min Est GFR (Non-Af Amer) 91.8 ml/min BUN/Creatinine Ratio 13.2 (10-20) Glucose 182 H (70-99(Fasting)) mg/dl Calcium 9.2 (8.6-10.3) mg/dl Magnesium 1.6 L (1.7-2.4) mg/dl Urine Color Yellow Urine Appearance Clear (Clear) Urine pH 6.0 (4.5-7.5) Ur Specific [place] 1.010 (1.000-1.030) Urine Protein Negative (Negative) Urine Glucose (UA) Negative (Negative) Urine Ketones Negative (Negative) Urine Blood Negative (Negative) Urine Nitrite Negative (Negative) Urine Bilirubin Negative (Negative) Urine Urobilinogen Negative (Negative) Ur Leukocyte Esterase Negative (Negative) Lyme Disease Screen Negative (Negative) PG Care Time/CCT Total # of Minutes Spent Total Time Spent with Patient: Total time spent is greater than 50% in coordination of care (as documented) at patient's floor/unit and/or counseling patient: Coding Level of Care Code 81544 SUB INP/OBS CARE 3/50MIN Diagnoses Ambulatory dysfunction R26.2 Seizure disorder G40.909 Type 2 diabetes mellitus E11.9 Hypomagnesemia E83.42
[2024-01-12 08:56] LABS: BUN Creatinine Ratio 13.2 (10-20); Calcium 9.2 mg/dl (8.6-10.3); Creatinine Clr Calc Pharmacy 82.3 ml/min; Est GFR (African American) 106.4 ml/min; Est GFR (Non-African American) 91.8 ml/min; Magnesium 1.6 mg/dl (1.7-2.4); Potassium 3.7 mmol/L (3.5-5.1)
[2024-01-12 09:10] LABS: Appearance Urine Clear (Clear); Bilirubin Urine Negative (Negative); Blood Urine Negative (Negative); Color Urine Yellow; Glucose Urine UA Negative (Negative); Ketones Urine Negative (Negative); Leukocyte Esterase Urine Negative (Negative); Nitrite Urine Negative (Negative); Protein Urine Negative (Negative); Urobilinogen Urine Negative (Negative)
[2024-01-12] MEDS: MAGNESIUM SULFATE / D5W 1 GM/100 ML BAG IV SCH (13:06)
[2024-01-12] MEDS: DIVALPROEX DELAY RELEASE 500 MG TAB PO SCH (21:26)
--- NOTE | 2024-01-13 08:31 | Hospitalist Progress Note ---
Date of Service January 13, 2024 Assessment & Plan (1) Ambulatory dysfunction: Plan: Presents after being unable to get up after legs gave out, did not hit her head and chronic knee pain. Reported increased urinary frequency prior to admission; no pulmonary or abdominal concerns for infection. Left knee xray - no fracture Left LE Doppler - no DVT Slight leukocytosis at 12 on admission, now resolved UA without infection . Lyme negative Tylenol for pain control Reported dietary indiscretion at [place] prior to admission, BNP WNL at 17 PT/OT consulted - recommending rehab > CM following - [facility] denied, [facility] doesn't take insurance, [facility] said they could accept but not until 01/11 or 01/12 Reported tenderness of right index finger 01/09. This is the hand patient was holding her cane with when she fell. > Able to flex and extend against resistance at PIP and DIP. Some minor redness at the right index distal phalanx was noted, no swelling appreciated. Tenderness is not worse with activity. > Rest and ice as needed. Continue to monitor. OF NOTE, PATIENT W CHRONIC NUMBNESS/TINGLING in her RIGHT hand/finger per prior Neuro notes. UNCHANGED Review of labs w/ Depakote < 10. * Review outpatient Neuro note from October and prior depakote level was NORMAL at 68. * ?was patient compliant with such. Suspect must have been missing doses. Discussed w/ her primary neurologist regarding lab value and if NOT taking, would continue current 375mg BID dosing and repeat level in 7-10 days to make sure stable. IF ADAMANT she has been compliant with such, recs to increase to 500mg BID w/ close f/u and recheck to ensure level does not become toxic as well PATIENT HAS REPORTED COMPLIANCE WITH KEPPRA --> INCREASED TO 500mg PO BID 01/11. Will need repeat depakote levels at discharge to ensure staying stable/not becoming toxic- per neuro can be checked in 7 days from change * Outpatient Neurology f/u to be arranged at discharge as well Repeat therapy evals today, CM following. To send for authorization for [facility] (no bed today reported). able to transport tomorrow hopefully if auth received. Mag checked given legs giving out/prior LOW 0.9 and no check since 2022--> MAG LOW 1.6, 2gm IV replacement ordered. Repeat wnl 01/12 Mag now wnl 2.0. TSH wnl. Labs stable, WBC 5.6k. Will avoid repeat lab stick in AM Waiting for auth for rehab, [facility] planned. Offered HHPT given improvement but patient still wanting to persure rehab as does not believe able to care for her at this time/wanting rehab. (2) Seizure disorder: Plan: With hx of brain cancer and resection . No focal neuro deficits on exam , chronic findings per Neuro note recently, unchanged per discussion Continued Depakote 375mg PO BID HOWEVER ABOVE Depakote level <10 and COMPLIANCE reported. 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 No diet to eliminate this but recommend minced and moist/pureed and mildly thick liquids OR patient is accepting the risk of aspiration (this was preformed 01/2023 after admission for pneumonia). - Does not make any food texture modifications at home and no evidence of pneumonia this visit - Diet changed to easy to chew, tolerating. Aspiration precautions in place (3) Type 2 diabetes mellitus: Plan: Patient not on any home medications, A1c 6.4 on 814 AM glucose on labs 123 and will avoid SSI for now. Will add BSG AC/HS to see if any elevations needing coverage. Outpt f/u rec'd Monitor (4) Hypomagnesemia: Plan: checked as above given prior lows/weakness on admission. Low 1.6, IV replacement ordered and will monitor in AM --> WNL 2.[address] on daily mag oxide to keep stores stable. Plan Chronic stable medical conditions: - Vitamin b12 deficiency - continue supplementation - Vitamin B1 deficiency - continue supplementation - Hypothyroid - TSH recently normal in 12/2023, continue Synthroid - HLD - continue statin Dvt proh: lovenox ADDED Dispo: continued inpatient stay, awaiting bed at [facility], auth pending 01/12 Admission and Anticipated Discharge Date Admission Date: January 08, 2024 Supervising Physician Co-Signing Physician Notes The patient was not seen by me. The chart was reviewed. Case discussed with KASSIE Mensah. Agree with assessment and plan Subjective Evaluated this morning, resting in bed. Feeling better, some weakness with therapy but improving however doesn't feel could be at home with home health as thinks too much at present and wanting rehab. [facility] auth still pending. No fever/chills, chest pain, shortness of breath. To repeat depakote level in 7 days from change to make sure stable. Questions/concerns addressed at this time. Physical Exam Physical Exam: General: No acute distress,, well-developed, well-nourished. + obese HEENT; head atraumatic, normocephalic, mmm, trachea midline Resp: even/unlabored, slightly diminished in the bases but no w/c/r, on room air CV: RRR< no significant mrg, no pitting edema, calves nontender/pulses present GI: +BS, soft/NT : no pereira MSK/Neuro: generalized weakness but nonfocal, following commands -slight R hand numbness/tingling at base line since her prior incident (unchanged), Psych: AOx3, cooperative with exam Results & Data Results & Data Vital Signs (Past 12 Hours) Vital Signs Temp Pulse Resp BP Pulse Ox O2 Del Method 01/13/24 08:11 36.3 C L 65 16 126/78 96 Room Air Laboratory Results 01/13/24 01/12/24 Range/Units 08:02 09:51 WBC 5.61 (4.8-10.8) K/ul RBC 4.02 L (4.20-5.40) M/uL Hgb 12.5 (12.0-16.0) g/dl Hct 36.5 L (37.0-47.0) % MCV 90.8 (80.0-100.0) fL MCH 31.1 (25.0-34.0) pg MCHC 34.2 (32.0-36.0) g/dL RDW Std Deviation 41.9 (36.4-46.3) fL RDW Coeff of Juliet 12.8 (11.5-14.5) % Plt Count 199 (130-400) K/uL MPV 8.9 L (9.4-12.4) fL Sodium 137 (136-145) mmol/L Potassium 4.3 (3.5-5.1) mmol/L Chloride 103 (98-107) mmol/L Carbon Dioxide 28 (21-32) mmol/L Anion Gap 6 (3-11) BUN 8 (6-23) mg/dl Creatinine 0.67 (0.6-1.2) mg/dl Est Cr Clr Drug Dosing 83.5 ml/min Est GFR ( Amer) 106.9 ml/min Est GFR (Non-Af Amer) 92.2 ml/min BUN/Creatinine Ratio 11.9 (10-20) Glucose 123 H (70-99(Fasting)) mg/dl Calcium 9.3 (8.6-10.3) mg/dl Magnesium 2.0 (1.7-2.4) mg/dl TSH 3.742 (0.300-4.500) uIu/ml Free T3 2.75 (2.3-4.2) pg/ml Lyme Disease Screen Negative (Negative) PG Care Time/CCT Total # of Minutes Spent Total Time Spent with Patient: Total time spent is greater than 50% in coordination of care (as documented) at patient's floor/unit and/or counseling patient: Coding Level of Care Code 38794 SUB INP/OBS CARE 2/35MIN Diagnoses Ambulatory dysfunction R26.2 Seizure disorder G40.909 Type 2 diabetes mellitus E11.9 Hypomagnesemia E83.42
[2024-01-13 08:44] LABS: Hematocrit (blood only) 36.5 % (37.0-47.0); Hemoglobin 12.5 g/dl (12.0-16.0); Mean Corpuscular Hemoglobin 31.1 pg (25.0-34.0); Mean Corpuscular Hgb Conc 34.2 g/dL (32.0-36.0); Mean Corpuscular Volume 90.8 fL (80.0-100.0); Mean Platelet Volume 8.9 fL (9.4-12.4); Platelet Count 199 K/uL (130-400); RDW Coefficient of Variation 12.8 % (11.5-14.5); RDW Standard Deviation 41.9 fL (36.4-46.3); Red Blood Count 4.02 M/uL (4.20-5.40); White Blood Count 5.61 K/ul (4.8-10.8)
[2024-01-13 08:57] LABS: Calcium 9.3 mg/dl (8.6-10.3); Potassium 4.3 mmol/L (3.5-5.1)
[2024-01-13 09:03] LABS: BUN Creatinine Ratio 11.9 (10-20); Creatinine Clr Calc Pharmacy 83.5 ml/min; Est GFR (African American) 106.9 ml/min; Est GFR (Non-African American) 92.2 ml/min
[2024-01-13 09:27] LABS: Thyroid Stimulating Hormone 3.742 uIu/ml (0.300-4.500)
[2024-01-13] MEDS: MAGNESIUM OXIDE 400 MG TAB PO SCH (12:11)
[2024-01-13] MEDS: ENOXAPARIN INJ 40 MG/0.4 ML SYR SQ SCH (12:11)
[2024-01-13] MEDS ORDERED: GLUCOSE 10 TAB/TUBE PO PRN (18:10)
[2024-01-13] MEDS ORDERED: CARBOHYDRATES FOR HYPOGLYCEMIA PO PRN (18:10)
[2024-01-13] MEDS ORDERED: GLUCOSE 40% GEL 15 GM TUBE PO PRN (18:10)
[2024-01-13] MEDS ORDERED: GLUCAGON FOR INJ 1 MG VIAL SQ PRN (18:10)
[2024-01-13] MEDS ORDERED: DEXTROSE 50% 50 ML SYRINGE IV PRN (18:10)
[2024-01-13] MEDS: INSULIN ASPART PER UNIT CHARGE SC SCH (20:59)
--- NOTE | 2024-01-14 07:51 | Hospitalist Progress Note ---
Date of Service January 14, 2024 Assessment & Plan (1) Ambulatory dysfunction: Plan: Presents after being unable to get up after legs gave out, did not hit her head and chronic knee pain. Reported increased urinary frequency prior to admission; no pulmonary or abdominal concerns for infection. Left knee xray - no fracture Left LE Doppler - no DVT Slight leukocytosis at 12 on admission, now resolved UA without infection . Lyme negative Tylenol for pain control Reported dietary indiscretion at [place] prior to admission, BNP WNL at 17 PT/OT consulted - recommending rehab > CM following - [facility] denied, [facility] doesn't take insurance, [facility] said they could accept but not until 01/11 or 01/12 Reported tenderness of right index finger 01/09. This is the hand patient was holding her cane with when she fell. > Able to flex and extend against resistance at PIP and DIP. Some minor redness at the right index distal phalanx was noted, no swelling appreciated. Tenderness is not worse with activity. > Rest and ice as needed. Continue to monitor. OF NOTE, PATIENT W CHRONIC NUMBNESS/TINGLING in her RIGHT hand/finger per prior Neuro notes. UNCHANGED Review of labs w/ Depakote < 10. * Review outpatient Neuro note from October and prior depakote level was NORMAL at 68. * ?was patient compliant with such. Suspect must have been missing doses. Discussed w/ her primary neurologist regarding lab value and if NOT taking, would continue current 375mg BID dosing and repeat level in 7-10 days to make sure stable. IF ADAMANT she has been compliant with such, recs to increase to 500mg BID w/ close f/u and recheck to ensure level does not become toxic as well PATIENT HAS REPORTED COMPLIANCE WITH KEPPRA--> INCREASED TO 500mg PO BID 01/11. Will need repeat depakote levels at discharge in 7 days, on 01/18. Outpt neurology f/u (follows with Dr Higgins) Mag checked, LOW 1.6 and IV replacement provided and wnl on repeat. Put on mag oxide daily to keep stores given had been low in past to 0.9 in 2022 without recheck. Can repeat w/ am labs to ensure remaining stable 01/13 Doing well, waiting to discuss with this afternoon about possible home with PT vs [facility] for ongoing care until able to have back at home if too much for him at present time. VSS, good appetite. No CP/SOB, on room air. Passing gas, adding colace BID, suppository if needed Of note, does appear w/ left leg slightly shorter than the right on exam. Neg log roll but given fall will have xray hip/pelvis for completeness. May benefit from insert for shoe on the left if no acute findings as patient reporting "doesn't bother her". Continue depakote 500mg PO BID --Repeat depakote level on 01/18, neurology follow up outpatient CM to follow up after comes to visit to see if wanting to look into [facility] or if could consider home with HHPT (2) Seizure disorder: Plan: With hx of brain cancer and resection . No focal neuro deficits on exam , chronic findings per Neuro note recently, unchanged per discussion Continued Depakote 375mg PO BID HOWEVER ABOVE Depakote level <10 and COMPLIANCE reported. 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 No diet to eliminate this but recommend minced and moist/pureed and mildly thick liquids OR patient is accepting the risk of aspiration (this was preformed 01/2023 after admission for pneumonia). - Does not make any food texture modifications at home and no evidence of pneumonia this visit - Diet changed to easy to chew, tolerating. Aspiration precautions in place some issues w/ eating at times but lung exam appears stable, no SOB and 97% on RA. Will have repeat speech eval while remaining inpatient for completeness (3) Type 2 diabetes mellitus: Plan: Patient not on any home medications, A1c 6.4 on 814 AM glucose on labs 123 and will avoid SSI for now. Will add BSG AC/HS to see if any elevations needing coverage. Outpt f/u rec'd Monitor (4) Hypomagnesemia: Plan: Checked as above given prior lows/weakness on admission and LOW 1.6, IV replacement ordered and 2.0 on repeat. Put on daily supplementation. Can repeat level in AM to ensure remaining stable. Plan Chronic stable medical conditions: - Vitamin b12 deficiency - continue supplementation - Vitamin B1 deficiency - continue supplementation - Hypothyroid - TSH wnl. Continues Synthroid - HLD - continue statin Dvt proh: lovenox ADDED while inpatient Dispo: not meeting for inpatient rehab, to come in today after dr goldbergt to discuss w/ CM and patient about possible looking into [facility] (would be $$) vs home with home health. Remains inpatient at this time until determination made Admission and Anticipated Discharge Date Admission Date: January 08, 2024 Supervising Physician Co-Signing Physician Notes The patient was not seen by me. The chart was reviewed. Case discussed with KASSIE Mensah. Agree with assessment and plan Subjective Evaluated this morning, resting in bed. Reports feeling better, however unable to get rehab approved based on current therapy eval/recs, consideration for [facility] however she needs to talk with her first. She reports he has a Dr appt this morning but will be by after and they plan to talk. No fever/chills, chest pain, shortness of breath. On room air. Passing gas but no bowel movement. Will increase bowel regimen/monitor. Denies need for stool softener. BSG checks acceptable and can stop. Consideration for home with HH therapy pending if agreeable this afternoon when in to visit. Will need repeat depakote level as discussed. Questions/concerns addressed at this time. Physical Exam Physical Exam: General: No acute distress,, well-developed, well-nourished. + obese HEENT; head atraumatic, normocephalic, mmm, trachea midline Resp: even/unlabored, slightly diminished in the bases (IMPROVED TODAY) , no w/c/r, on room air 97% CV: RRR, no significant mrg, trace b/l pedal edema, calves nontender/pulses present GI: +BS, soft/NT : no pereira MSK/Neuro: generalized weakness but nonfocal, following commands. 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 Negative pain with log roll Psych: AOx3, cooperative with exam Results & Data Results & Data Vital Signs (Past 12 Hours) Vital Signs Temp Pulse Resp BP Pulse Ox O2 Del Method 01/13/24 22:56 36.5 C 65 18 99/60 L 96 Room Air Laboratory Results 01/14/24 01/13/24 01/13/24 Range/Units 07:24 20:09 16:37 POC Glucose 121 H 151 H 220 H (70-99) mg/dl 25-OH Vitamin D Total (30-100) ng/ml 01/13/24 01/13/24 Range/Units 11:37 09:51 POC Glucose 135 H (70-99) mg/dl 25-OH Vitamin D Total 36.3 (30-100) ng/ml PG Care Time/CCT Total # of Minutes Spent Total Time Spent with Patient: Total time spent is greater than 50% in coordination of care (as documented) at patient's floor/unit and/or counseling patient: Coding Level of Care Code 23908 SUB INP/OBS CARE 06/04MIN Diagnoses Ambulatory dysfunction R26.2 Seizure disorder G40.909 Type 2 diabetes mellitus E11.9 Hypomagnesemia E83.42
[2024-01-14 08:11] VITALS: BP 113/69; RESP 16; TEMP 97.5; O2SAT 97
[2024-01-14] MEDS: DOCUSATE SODIUM 100 MG CAP PO SCH (11:20)
--- NOTE | 2024-01-14 12:52 | Discharge Summary ---
Discharge Summary Date of Service January 14, 2024 Principal Dx & Hospital Course #1 = Principal Diagnosis (1) Ambulatory dysfunction: Presents after being unable to get up after legs gave out, did not hit her head and chronic knee pain. Reported increased urinary frequency prior to admission; no pulmonary or abdominal concerns for infection. Left knee xray - no fracture Left LE Doppler - no DVT Slight leukocytosis at 12 on admission, now resolved UA without infection . Lyme negative Tylenol for pain control Reported dietary indiscretion at [facility] prior to admission, BNP WNL at 17 PT/OT consulted - recommending rehab > CM following - [facility] denied, [facility] doesn't take insurance, [facility] said they could accept but not until 01/11 or 01/12 Reported tenderness of right index finger 01/09. This is the hand patient was holding her cane with when she fell. > Able to flex and extend against resistance at PIP and DIP. Some minor redness at the right index distal phalanx was noted, no swelling appreciated. Tenderness is not worse with activity. OF NOTE, PATIENT W CHRONIC NUMBNESS/TINGLING in her RIGHT hand/finger per prior Neuro notes. UNCHANGED Review of labs w/ Depakote < 10. * Review outpatient Neuro note from October and prior depakote level was NORMAL at 68. * ?was patient compliant with such. Suspect must have been missing doses. Discussed w/ her primary neurologist regarding lab value and if NOT taking, would continue current 375mg BID dosing and repeat level in 7-10 days to make sure stable. Recs IF ADAMANT she has been compliant with such, recs to increase to 500mg BID w/ close f/u and recheck to ensure level does not become toxic as well PATIENT HAS REPORTED COMPLIANCE WITH KEPPRA--> INCREASED TO 500mg PO BID 01/11. Repeat depakote levels at discharge in 7 days on 01/18 ordered and results to be sent to neuro. Outpt f/u Dr Higgins Of note, mag checked, LOW 1.6 and IV replacement provided and wnl on repeat. Put on mag oxide daily to keep stores given had been low in past to 0.9 in 2022 without recheck. Can repeat w/ am labs to ensure remaining stable 01/13 Doing well, was waiting to discuss with in afternoon about [facility] vs [facility] and initially was going to go home without home health therapy however further discussion undertaken with patient/ at bedside and was agreeable and can cancel if not finding helpful. Home health able to draw depakote level on 01/18 but if cancels, patient can take/have drawn at any outpatient lab/slip provided. Passing gas, adding colace BID, suppository if needed. Encouraged continued regimen. No abdominal pain on exam. Depakote 500mg PO BID --Repeat depakote level on 01/18, neurology follow up outpatient Of note, does appear w/ left leg slightly shorter than the right on exam. Neg log roll but given fall will have xray hip/pelvis for completeness. May benefit from insert for shoe on the left if no acute findings as patient reporting "doesn't bother her" and can be discussed in follow up with PCP Pelvis/hip imaging obtained for completeness but nothing focal on exam except for leg lengths which appear chronic. Xray WITHOUT fracture or dislocation within the pelvis or hips. The sacrum is intact. Soft tissues are unremarkable. Mild degenerative changes within the bilateral sacroiliac joints. Outpt f/u, ongoing therapy at home arranged per repeat discussion with patient/ prior to dc (2) Seizure disorder: With hx of brain cancer and resection . No focal neuro deficits on exam , chronic findings per Neuro note recently, unchanged per discussion Continued Depakote 375mg PO BID HOWEVER ABOVE Depakote level <10 and COMPLIANCE reported. Discussed w/ Neuro, Dr Higgins, her primary neurologist, and recd to INCREASE 500mg BID given reported compliance ( does her pills) and repeat level 7 days (check due 01/18). Order placed/slip provided. Patient has had prior [employer]PER[employer] 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 No diet to eliminate this but recommend minced and moist/pureed and mildly thick liquids OR patient is accepting the risk of aspiration (this was preformed 01/2023 after admission for pneumonia). No changes to food texture at home/no evidence for pneumonia while inpatient and tolerating diet. Aspiration precautions in place and remained on room air/afebrile and lungs clear on exam (was slightly diminished on 01/12 but improved w/ addition of incentive spirometer and increased activity/ambulation) (3) Type 2 diabetes mellitus: Patient not on any home medications, A1c 6.4 on 12/22 Occasional BSG bump after lunch to low 200s but otherwise stable/not requiring much insulin but can follow up with PCP about management as AM glu 123 on most recent chemistries 01/12 No hypoglycemia noted Should consider follow up discussion w PCP about checking sugars once/twice daily at home/keeping log and monitoring carb intake as able Outpt f/u (4) Hypomagnesemia: Checked as above given prior lows/weakness on admission and LOW 1.6, IV replacement ordered and 2.0 on repeat. Put on daily supplementation/continued at dc. Did repeat w/ outpt depakote levels to ensure stable but can f/u with PCP if needing increase. Utilized mag oxide as issues w/ constipation to also assist but if develops diarrhea could consider switching to slow mag Plan Chronic stable medical conditions: Vitamin b12 deficiency - continue supplementation Vitamin B1 deficiency - continue supplementation Hypothyroid - TSH wnl. Continues Synthroid HLD - continue statin Dvt proh: lovenox added while inpatient. trace pedal edema but calves nontender/pulses palpable and venous doppler NEGATIVE on admission/no evidence for DVT on exam Dispo: MD home w/ , home health therapy. Outpt f/u with PCP and neurology for depakote/level check on 01/18 as outlined Notes For Next Care Provider Ensure repeat Depakote level drawn/followed up on 01/18 Follow up repeat magnesium level/consider increasing oral supplementation if low again on repeat given prior lows in the past as could have contributed to weakness Did discuss with / and encouraged home health therapy which they initially declined given PT/OT recs for rehab and insurance denied and was eventually receptive but discussed could be cancelled if not seeing any benefit. They did not want to look into [facility] for short term due to cost and felt he could take her home/patient ready to leave. Medication Changes From Visit Depakote increased to 500mg PO BID due to level <10 as discussed with Neurologist while inpatient. Repeat level in 7 days ordered and can be drawn by home health or at any [place] facility/provided rx to patient. Admission HPI Per Admitting Provider Ashley is a 63F with a history of CVA, seizure disorder and hx of brain mass, DM, chronic dysarthria, B12 deficiency, hypothyroidism, GERD who presents with worsening of her chronic knee pain and with a fall today that she was unable to get up from. had to call help. She did not hit her head, no prodromal symptoms, legs just gave out on her. She was at [place] [employer] [place] all last week and used a scooter, does not normally have to use a scooter. Thinks her normal weight is around 200 lbs. chronic knee pain, she treat this with Tylenol at home. Has not taken any tylenol today, but did take her morning medications. Denies cough, shortness of breath, sick contacts, fevers or chills. She does report urinary frequency. Admission Exam Per Admitting Provider General: NAD, VS as above Resp: normal respiratory effort, lungs clear to auscultation CV: RRR, no murmur, Abd: normal bowel sounds, non tender, no hepatosplenomegaly Extremities: Moves all extremities, left knee slightly tender to palpation, no focal tenderness, no erythema or warmth. Bilateral LE strength 4/5 Neuro: A&O x3, no focal deficits Skin: intact, no lesions noted Discharge Exam General: No acute distress,, well-developed, well-nourished. + obese HEENT; head atraumatic, normocephalic, mmm, trachea midline Resp: even/unlabored, slightly diminished in the bases (IMPROVED TODAY) , no w/c/r, on room air 97% CV: RRR, no significant mrg, trace b/l pedal edema, calves nontender, pulses present, cap refill <3 seconds GI: +BS, soft/NT : no pereira MSK/Neuro: generalized weakness but nonfocal (and IMPROVING), following commands. old residual findings on the right from prior CVA -slight R hand numbness/tingling at baseline since her prior incident (unchanged), left leg is slightly shorter than the right on exam but ?if chronic. Negative pain with log roll Psych: AOx3, cooperative with exam Discharge Plan Discharge Items Patient Disposition: Home - Home Health Services Reason For Visit: AMBULATORY DYSFUNCTION Discharge Diagnosis: Ambulatory dysfunction, fall Goals: You have been hospitalized for an acute medical problem. During your stay at [facility], we have made an effort to correct the problem that brought you to the hospital while keeping you as comfortable as possible. Medications were used to bring your condition under control and your discharge instructions will include directions for any medications you should take after leaving the hospital. Please make sure you see your Primary Care Provider as part of your follow up plan. Activity: As commented below Activity Comment: as tolerated with a walker Non-emergency contact: Primary Care Provider and Neurologist Call non-emergency contact if: you have any medication questions, your symptoms worsen, your pain is not controlled, your pain is concerning for you and you have a fever Follow-up/Referrals: Esau Higgins MD [Physician] - (3-4 weeks) Aleshia Morton MD [Primary Care Provider] - 01/27/24 2:00 pm Diet: Carb Consistent or DM2 and Heart Healthy Ambulatory Orders: Magnesium (Routine) Timeframe: 20240119 Location: Determined by Patient Ordered By: Faviola Odonnell Valproic Acid (Routine) Timeframe: 20240119 Location: Determined by Patient Ordered By: Faviola Odonnell Addtl Attending Provider Instructions: You have been hospitalized for difficulty walking. Xray of the knee was negative for acute fracture, did have some swelling noted. Ultrasound was obtained and NEGATIVE for blood clot. Therapy evaluations were undertaken and recommendations are for rehab to work on strength/conditioning, which has been arranged at [facility]. Of note, you did not have any evidence for seizure activity, but we did check a Depakote level and this was LOW. Lyme testing was negative. Urine testing was also NEGATIVE. I spoke with Dr Higgins and recommendations are to INCREASE your Depakote to 500mg by mouth twice daily and should have REPEAT DEPAKOTE levels in 7 days from adjustment, which should be on January 18 and can have follow up with Neurology for ongoing management/monitoring/adjustment. We have also checked your thyroid function which was NORMAL Your magnesium was checked and was LOW, which can contribute to weakness as well. We gave you IV replacement and repeat magnesium level was NORMAL. We started/continuing daily supplementation. Please follow up with primary care after discharge to monitor your progress after hospitalization. Please return to the ER with any fever/chills, chest pain, shortness of breath, worsening weakness or for any other symptoms concerning for you. It has been a pleasure being a part of the medical team providing for you while you have been in the hospital. Take care! Pending Studies at Discharge: No Stand-Alone Forms: My [facility] Medications and DC Order Prescriptions: New divalproex 500 mg Tablet,Delayed Release (Dr/Ec) 500 mg PO BID Qty: 60 0RF Continued acetaminophen [Tylenol] 325 mg Tablet 650 mg PO Q6 PRN (Reason: Fever Or Pain) melatonin 3 mg tablet 3 mg PO HS Qty: 30 0RF atorvastatin 40 mg tablet 40 mg PO HS sennosides [Senokot] 8.6 mg tablet 17.2 mg PO QDL thiamine HCl (vitamin B1) 100 mg tablet 200 mg PO BIDM Rx Instructions: TAKES AT NOON AND SUPPER aspirin 81 mg tablet,delayed release (DR/EC) 81 mg PO QDL cyanocobalamin (vitamin B-12) 500 mcg tablet 1,000 mcg PO QDL levothyroxine 50 mcg tablet 50 mcg PO QAM clotrimazole-betamethasone 1-0.05 % cream 1 applic topical BID PRN (Reason: Skin Irritation) omeprazole 20 mg capsule,delayed release(DR/EC) 20 mg PO QAM montelukast [Singulair] 10 mg tablet 10 mg PO QDL potassium chloride 20 mEq tablet extended release 20 meq PO QDL Discontinued divalproex [Depakote] 125 mg tablet,delayed release (DR/EC) 375 mg PO BID 90 Days Qty: 540 3RF Rx Instructions: TAKES AT NOON & HS Discharge Orders: Discharge Order (Routine); Ordered 01/14/24 Ordered By: Faviola Odonnell Admission Data Admit Date/Time: 01/08/24 13:57 Attending Provider: Steve Wallace Admit Provider: Saadia Justin Primary Care Provider: Aleshia Morton Other Providers: Raf Garcia; [facility]; [facility]; [facility]; [facility] Other Interventions: Discharge Summary Assessment (RN) Last Done: 01/14/24 13:47 Hospital Stay Data Consultations 01/06/24 17:23 ED Decision to Admit Stat Diagnostic Imagining Performed Knee X-Ray 01/06/24 12:32 LEFT KNEE 2 VIEWS CLINICAL HISTORY: Fall. Left knee injury. FINDINGS: AP and crosstable lateral views of the left knee are obtained. No prior studies are available for comparison at the time of dictation. The skeletal structures are heterogeneously osteopenic. No fracture is seen. There is minimal degenerative joint space narrowing. A small joint effusion is susp ected. The overlying soft tissues are within normal limits. IMPRESSION: No acute bony abnormality is identified. Electronically signed by: Leonides Partida M.D. 01/06/2024 2:33 PM Venous Doppler Study 01/06/24 15:35 LEFT LOWER EXTREMITY VENOUS DOPPLER HISTORY: Left lower leg pain eval for dvt COMPARISON STUDY: None. FINDINGS: There is normal compressibility, flow, and augmentation within the left lower extremity deep venous system. IMPRESSION: No DVT within the left lower extremity. ACT 112: Negative or not required by law. Electronically signed by: Khurram Loredo M.D. 01/06/2024 5:03 PM Hip/Pelvis X-Ray 01/14/24 10:40 XR hip LT 2V w pelvis CLINICAL HISTORY: left leg shorter than right, fall, eval any fx COMPARISON STUDY: None. FINDINGS: No fracture or dislocation within the pelvis or hips. The sacrum is intact. Soft tissues are unremarkable. Mild degenerative changes within the bilateral sacroiliac joints. IMPRESSION: No fracture or dislocation within the pelvis or hips. ACT 112: Negative or not required by law. Electronically signed by: Khurram Loredo M.D. 01/14/2024 4:23 PM Discharge Instructions Given to Patient (Per Discharging Provider) You have been hospitalized for difficulty walking. Xray of the knee was negative for acute fracture, did have some swelling noted. Ultrasound was obtained and NEGATIVE for blood clot. Therapy evaluations were undertaken and recommendations are for rehab to work on strength/conditioning, which has been arranged at [facility]. Of note, you did not have any evidence for seizure activity, but we did check a Depakote level and this was LOW. Lyme testing was negative. Urine testing was also NEGATIVE. I spoke with Dr Higgins and recommendations are to INCREASE your Depakote to 500mg by mouth twice daily and should have REPEAT DEPAKOTE levels in 7 days from adjustment, which should be on January 18 and can have follow up with Neurology for ongoing management/monitoring/adjustment. We have also checked your thyroid function which was NORMAL Your magnesium was checked and was LOW, which can contribute to weakness as well. We gave you IV replacement and repeat magnesium level was NORMAL. We started/continuing daily supplementation. Please follow up with primary care after discharge to monitor your progress after hospitalization. Please return to the ER with any fever/chills, chest pain, shortness of breath, worsening weakness or for any other symptoms concerning for you. It has been a pleasure being a part of the medical team providing for you while you have been in the hospital. Take care! Supervising Physician Co-Signing Physician Notes The patient was not seen by me. The chart was reviewed. Case discussed with KASSIE Mensah. Agree with assessment and plan Total Time Total Time Spent Total Time Spent (In Minutes): 45 Coding Level of Care Code 13953 INP/OBS DISCH >30 MIN Diagnoses Ambulatory dysfunction R26.2 Seizure disorder G40.909 Type 2 diabetes mellitus E11.9 Hypomagnesemia E83.42
[2024-01-14 13:49] VITALS: PULSE 77
--- NOTE | 2024-01-14 16:25 | XRay Report ---
XR hip LT 2V w pelvis CLINICAL HISTORY: left leg shorter than right, fall, eval any fx COMPARISON STUDY: None. FINDINGS: No fracture or dislocation within the pelvis or hips. The sacrum is intact. Soft tissues ar e unremarkable. Mild degenerative changes within the bilateral sacroiliac joints. IMPRESSION: No fracture or dislocation within the pelvis or hips. ACT 112: Negative or not required by law. Electronically signed by: Khurram Loredo M.D. 01/14/2024 4:23 PM
== END 2024-01-14 14:34 | disposition home health service (06) | DRG 93 ==
LOC: EDINP 12:22 → ED 12:22 → SUATTDRO 18:11 → 3W 20:02 → SUATTDRO 01-08 13:57

== ENCOUNTER 2024-06-07 06:54 | Inpatient (IN) ==
[2024-06-07] MEDS: SODIUM CHLORIDE 0.9% 1,000 ML IV SCH (07:00)
--- NOTE | 2024-06-07 07:06 | Emergency Department Note ---
Impression & Plan Acute confusion, Weakness, Acute hyponatremia ED Provider Note NAME: JIM MAGAÑA AGE: 64 SEX: F : 1960 ARRIVES VIA: Ambulance INFORMANT: Patient ED PROVIDER(S): Herman Newby DO CHIEF COMPLAINT: Weakness HPI: Patient is a 64-year-old female with a past medical history of diabetes, seizures, hyperlipidemia who presents to the ER for weakness per report of the patient. EMS was present at bedside provides additional history and notes that patient has been having a lot of diarrhea. Recently she walked to the bathroom and sat down that she felt so weak. She did not hit her head. She did not fall. Patient denies any head pain or neck pain. No chest pain or shortness of breath. No dysuria, urgency, or frequency. No other exacerbating or remitting factors. Patient denies any diarrhea and all other complaints. Son notes that she was super weak this morning could not stand on her own and was having persistent diarrhea. He also notes that she was confused. ADDITIONAL HISTORY OBTAINED: Per HPI Chronic Medical/Social Conditions Affecting Care: Per HPI PAST MEDICAL HISTORY:See Below PAST SURGICAL HISTORY:See Below FAMILY HISTORY:See Below SOCIAL HISTORY:See Below HOME MEDICATIONS:See Below ALLERGIES:See Below VITALS:See Below PHYSICAL EXAMINATION: GENERAL: Sitting up in bed, alert, covered in stool all over the waist and upper thighs EYE EXAM: normal conjunctiva. OROPHARYNX: no exudate, no erythema, lips, buccal mucosa, and tongue normal and mucous membranes are moist NECK: supple, no nuchal rigidity, no adenopathy, non-tender LUNGS: Clear to auscultation. Normal chest wall mechanics HEART: no murmurs, S1 normal and S2 normal ABDOMEN: abdomen soft, mild diffuse tenderness, normo-active bowel sounds, no masses, no rebound or guarding. BACK: Back is symmetrical on inspection and there is no deformity, no midline tenderness, no CVA tenderness. UPPER EXTREMITIES: upper extremities are grossly normal. LOWER EXTREMITIES: No pitting edema. NEURO EXAM: Oriented to person, and place, cranial nerves II-XII grossly intact, normal speech, no gross weakness of arms, no gross weakness of legs. MEDICAL DECISION MAKING: Patient is a 64-year-old female who presents to the ER for the below stated complaint. IV was established and blood work was obtained. Labs show no significant leukocytosis or anemia. BMP with mild hyponatremia at 133. LFTs bilirubin was unremarkable. Lipase was normal. TSH unremarkable. UA was clean. CT of the head was negative. CT abdomen pelvis showed no acute pathology. Chest x-ray was clean. Patient was updated at bedside and given IV fluids. Discussed with the son who provided additional history and notes that patient was very confused and could not walk on her own this morning as she was so weak. Patient was discussed with the hospitalist for further evaluation management treatment following this. Consults/Care Managements Discussions: Per [facility] Triage Nursing notes reviewed. Limited review of prior medical records performed Vital Signs: reviewed and remarkable for no significant abnormalities Differential diagnosis: Infection, dehydration, metabolic abnormality, hypo/hyperglycemia, electrolyte disturbance, anemia, hypoxia, cardiac sources, intracerebral event, toxicologic, neurologic, as well as other pathologies. ER treatment provided: See below Diagnostics interpreted by me include EKG and cardiac monitoring as listed below: -Cardiac Monitoring: An order was placed for continuous cardiac monitoring. The monitor shows a rate of 70 with sinus rhythm. -ECG: none -Laboratory studies:Interpreted by me as stated above in MDM and shown below. Imaging studies: Xrays: As interpreted by me: Portable AP upright 1 view of the chest shows no focal infiltrate CTs show: CT head and abdomen pelvis shows no acute pathology Procedures:none Critical Care: None Past Med/Surg History Problem List (Updated 06/07/24 @ 12:45 by Herman Newby DO) Acute hyponatremia (Acute) Weakness (Acute) Acute confusion (Acute) Generalized weakness Fecal incontinence Diarrhea Ambulatory dysfunction (Acute) Ambulatory dysfunction Type 2 diabetes mellitus (Chronic) Seizure disorder (Chronic) Recurrent herpes labialis (Chronic) Hypothyroidism (Chronic) Hyperlipidemia (Chronic) Esophageal reflux (Chronic) B12 deficiency (Chronic) Chronic sinusitis (Chronic) Allergic rhinitis (Chronic) Medical History (Updated 06/07/24 @ 12:45 by Herman Newby DO) Hypomagnesemia Vitamin D deficiency History of CVA (cerebrovascular accident) lacunar infarct 09/2020>STILL HAS NUMBNESS IN RT HAND AND RT SIDE OF FACE Multiple pulmonary nodules stable on imaging - no further workup required Hx of brain cancer Right temporal glioma, s/p surgery, 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 Surgical History History of cataract surgery right Hx of colonoscopy Hx of tubal ligation Hx of section Hx of brain surgery 2000-[facility] Family History Grandmother Family history of diabetes mellitus Father Myocardial infarction Other No significant family history Denies family history of Ovarian cancer Prostate cancer Breast cancer Colorectal cancer Social History (Updated 04/21/24 @ 08:39 by Traci Roth LPN) Smoking Status: Never smoker Tobacco Type: Smokeless Tobacco (Dip or Chew) Second Hand Exposure: No; Do You Dip or Chew Tobacco: Yes (on occassion); Hx Alcohol Use: No Hx Substance Use: No Preferred Language: Telugu Communication Ability: Effective Communication Ability Comment: TROUBLE HEARING OUT OF RIGHT SIDE [place] Former Required: No Beliefs That Will Affect Care: None marital status: Current Living Situation: Spouse current occupational status: employed 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 Childhood Exposure to Second-Hand Smoke: Yes Diet: regular caffeine: Yes (diet soda) Dental Care, Regularly: No Physical Activity Frequency: Does not Exercise Seatbelt Use: always Sunscreen Use: Yes Assistive Devices: Denture - Upper, Denture - Lower, Glasses and Hospital Bed Allergies Allergies Allergy/AdvReac Type Severity Reaction Status Date / Time Sulfa (Sulfonamide Allergy Intermediate ITCHING, Verified 06/07/24 09:57 Antibiotics) BURNING aspirin AdvReac Unknown TO AVOID Verified 06/07/24 09:57 -HX BRAIN TUMOR NOT TO TAKE Home Meds Home Medications Medication Instructions Recorded Confirmed acetaminophen 325 mg tablet 650 mg PO Q6 PRN Fever Or Pain 01/19/23 06/07/24 (Tylenol) atorvastatin 40 mg tablet 0 mg PO HS 01/06/24 06/07/24 clotrimazole-betamethasone 1 1 applic topical BID PRN Skin 01/06/24 06/07/24 %-0.05 % topical cream Irritation cyanocobalamin (vitamin B-12) 500 1,000 mcg PO QDL 01/06/24 06/07/24 mcg tablet thiamine HCl (vitamin B1) 100 mg 200 mg PO BIDM 01/06/24 06/07/24 tablet montelukast 10 mg tablet 0 mg PO DAILY 06/07/24 06/07/24 (Singulair) omeprazole 20 mg capsule,delayed 0 mg PO DAILY 06/07/24 06/07/24 release potassium chloride 20 mEq 20 meq PO DAILY 06/07/24 06/07/24 tablet,extended release Previous Rx's Medication Instructions Recorded melatonin 3 mg tablet 3 mg PO HS #30 tabs 01/24/23 divalproex 500 mg tablet,delayed 500 mg PO BID #180 tabs 02/05/24 release levothyroxine 50 mcg tablet 50 mcg PO DAILY #90 tabs 03/30/24 Results & Data (ED) Vital Signs Vital Signs - 24 hr 06/07/24 07:01 06/07/24 07:11 06/07/24 07:11 Temperature 36.8 C Temperature Source Oral Pulse Rate 73 74 Pulse Rate [Apical] Pulse Rhythm Regular Regular Pulse Rhythm [Apical] Pulse Strength Normal Pulse Strength [Apical] Respiratory Rate 14 14 Respiratory Effort / Characteristics Non-Labored Spontaneous Respiratory Depth Normal Respiratory Pattern Regular Blood Pressure 121/76 Blood Pressure [Right Arm] Blood Pressure Mean 91 Blood Pressure Mean [Right Arm] Blood Pressure Position Lying Blood Pressure Position [Right Arm] Pulse Oximetry 100 100 100 Oxygen Delivery Method Room Air Room Air Room Air Oxygen Flow Rate 0 Sepsis Recent Fever Within 48 Hours No Sepsis New/Unexplained Change in Mental Status No Sepsis Action Taken by Nursing No Action Required 06/07/24 08:08 06/07/24 08:21 06/07/24 10:00 Temperature 36.8 C 36.9 C Temperature Source Oral Oral Pulse Rate 75 Pulse Rate [Apical] 77 70 Pulse Rhythm Pulse Rhythm [Apical] Regular Regular Pulse Strength Pulse Strength [Apical] Normal Normal Respiratory Rate 20 20 Respiratory Effort / Characteristics Non-Labored Spontaneous Non-Labored Spontaneous Respiratory Depth Normal Normal Respiratory Pattern Regular Regular Blood Pressure Blood Pressure [Right Arm] 134/79 97/61 L Blood Pressure Mean Blood Pressure Mean [Right Arm] 97 73 Blood Pressure Position Blood Pressure Position [Right Arm] Semi-fowlers Semi-fowlers Pulse Oximetry 100 100 Oxygen Delivery Method Room Air Room Air Oxygen Flow Rate Sepsis Recent Fever Within 48 Hours Sepsis New/Unexplained Change in Mental Status Sepsis Action Taken by Nursing 06/07/24 11:07 06/07/24 12:26 Temperature 36.9 C Temperature Source Oral Pulse Rate 66 Pulse Rate [Apical] 75 Pulse Rhythm Pulse Rhythm [Apical] Regular Pulse Strength Pulse Strength [Apical] Normal Respiratory Rate 20 Respiratory Effort / Characteristics Non-Labored Spontaneous Respiratory Depth Normal Respiratory Pattern Regular Blood Pressure Blood Pressure [Right Arm] 117/66 Blood Pressure Mean Blood Pressure Mean [Right Arm] 83 Blood Pressure Position Blood Pressure Position [Right Arm] Lying Pulse Oximetry 98 Oxygen Delivery Method Room Air Oxygen Flow Rate Sepsis Recent Fever Within 48 Hours Sepsis New/Unexplained Change in Mental Status Sepsis Action Taken by Nursing Laboratory Data 06/07/24 07:01 06/07/24 07:01 Lab Results 06/07/24 06/07/24 06/07/24 Range/Units 07:01 07:11 08:02 WBC 7.04 (4.8-10.8) K/ul RBC 4.20 (4.20-5.40) M/uL Hgb 13.1 (12.0-16.0) g/dl POC Hgb 13.3 (12.0-16.0) g/dl Hct 37.5 (37.0-47.0) % POC Hct 39 (37-47) % MCV 89.3 (80.0-100.0) fL MCH 31.2 (25.0-34.0) pg MCHC 34.9 (32.0-36.0) g/dL RDW Std Deviation 42.0 (36.4-46.3) fL RDW Coeff of Juliet 13.0 (11.5-14.5) % Plt Count 154 (130-400) K/uL MPV 9.8 (9.4-12.4) fL Immature Gran % (Auto) 0.4 % Neut % (Auto) 63.0 % Lymph % (Auto) 23.4 % [place] % (Auto) 12.6 % Eos % (Auto) 0.0 % Baso % (Auto) 0.6 % Neut # (Auto) 4.43 (1.40-6.50) K/uL Lymph # (Auto) 1.65 (1.20-3.40) K/uL [place] # (Auto) 0.89 H (0.11-0.59) K/uL Eos # (Auto) 0.00 (0.00-0.50) K/uL Baso # (Auto) 0.04 (0.00-0.20) K/uL Immature Gran # (Auto) 0.03 (0.01-0.20) K/uL POC Sodium 133 L (135-144) mmol/L Sodium 133 L (136-145) mmol/L POC Potassium 4.6 (3.3-5.0) mmol/L Potassium 4.8 (3.5-5.1) mmol/L POC Chloride 96 L (101-112) mmol/L Chloride 97 L (98-107) mmol/L Carbon Dioxide 28 (21-32) mmol/L POC Total CO2 25 (24-31) mmol/L Anion Gap 8 (3-11) POC Anion Gap 18.0 (16-25) mmol/L POC BUN 9 (7-18) mg/dl BUN 10 (6-23) mg/dl Creatinine 0.89 (0.6-1.2) mg/dl POC Creatinine 0.9 (0.6-1.3) mg/dl Est Cr Clr Drug Dosing 61.4 ml/min eGFR 71.46 BUN/Creatinine Ratio 11.2 (10-20) Glucose 173 H (70-99(Fasting)) mg/dl POC Glucose (other) 168 H (70-99) mg/dl Calcium 10.0 (8.6-10.3) mg/dl POC Ioniz Calcium Silas 1.20 (1.12-1.32) mmol/l Magnesium 1.8 (1.7-2.4) mg/dl Total Bilirubin 0.7 (0.2-1.0) mg/dl AST 11 L (13-39) U/L ALT 10 (7-52) U/L Alkaline Phosphatase 63 (34-104) U/L Total Protein 7.0 (6.0-8.3) gm/dl Albumin 4.1 (3.4-5.0) gm/dl Globulin 2.9 (2.5-4.0) gm/dl Albumin/Globulin Ratio 1.4 (0.9-2) Lipase 37 (11-82) U/L TSH 3.505 (0.300-4.500) uIu/ml Urine Color Dark Yellow Urine Appearance Clear (Clear) Urine pH 7.5 (4.5-7.5) Ur Specific [place] 1.029 (1.000-1.030) Urine Protein Trace H (Negative) Urine Glucose (UA) Negative (Negative) Urine Ketones Trace H (Negative) Urine Blood Negative (Negative) Urine Nitrite Negative (Negative) Urine Bilirubin Negative (Negative) Urine Urobilinogen Positive H (Negative) Ur Leukocyte Esterase Negative (Negative) Urine WBC (Auto) 0-5 (0-5) /hpf Urine RBC (Auto) 0-2 (0-2) /hpf U Hyaline Cast (Auto) 3-5 H (0-2) /lpf U Epithel Cells (Auto) 0-2 (0-2) /hpf Urine Bacteria (Auto) None Seen (None Seen) Administered Medications Discontinued Medications Sodium Chloride (Nss) 1,000 mls @ 999 mls/hr IV .Q1H1M CHICHI Stop: 06/07/24 09:15 Last Admin: 06/07/24 08:32 Dose: 999 mls/hr Documented By: Infusion: 06/07/24 08:01 Dose: Infused Documented By: Admin: 06/07/24 07:00 Dose: 999 mls/hr Documented By: MACK Ioversol (Optiray 320 100ml) 94 ml IV ONCE ONE Stop: 06/07/24 07:39 Last Admin: 06/07/24 07:38 Dose: 94 ml Documented By: PHYLLIS Imaging Data Radiologist's Impression: Abdomen/Pelvis CT 06/07/24 07:01 EXAM: CT abd pelvis IV con only CLINICAL HISTORY: EMS reports pt had been ambulating and became weak. She reportedly sat down on the floor and was too weak to get up. EMS reports was on scene but is a poor historian. Pt''s baseline is also confused. EMS reports that she has been dealing with diarrhea for some time. She denies this claim though was incontinent for EMS. She complains of pain in her abdomen but only upon palpation 94ml opti 320 TECHNIQUE: A CT scan of the abdomen and pelvis was performed with IV contrast. Coronal and sagittal reconstructive images were also obtained. 94 ml of Opti 32 was administered as an intravenous contrast agent. One of the following dose reduction techniques were utilized for this exam: Automated exposure control, adjustment of the mA and/or kV according to patient size, and use of iterative reconstruction. CTDI: 66.7 mGy, DLP: 1988.7 mGy*cm. COMPARISON: None. FINDINGS: Distal rectal short segment (about 3 cm in length) of edematous thickened wall measuring up to 15 mm with perirectal mild fat stranding. Inadequately distended gallbladder over multiple stones up to 22 mm. The gallbladder wall appears mildly thickened/edematous. No evident radiodense CBD stones were observed. The liver is mildly enlarged measuring 18 cm. No focal or diffuse parenchymal abnormality. The portal vein, intrahepatic biliary radicals, and the bile ducts are normal. The spleen, pancreas, and adrenal glands are unremarkable. The kidneys are normal in size and shape. No calculi, masses, or hydronephrosis. Tiny right renal Bosniak class 1 cysts. The ascending colon, the transverse colon, the descending colon, and the visualized small bowel loops are unremarkable. No CT evidence of acute appendicitis. A small hiatus hernia. The urinary bladder is unremarkable. No gross uterine or adnexal abnormality could be identified. Aortic atheromatous calcifications. No evidence of abdominopelvic lymphadenopathy. No ascites. A scan through the lower chest reveals a left lung lower lobe nodule measuring 2.5 mm and bilateral lung basilar atelectatic plates. Osteopenia. Degenerative changes of the scanned spine. IMPRESSION: 1. Distal rectal short segment (approximately 3 cm in length) shows an edematous thickened wall measuring up to 15 mm, with mild perirectal fat stranding. This could represent inflammation or proctitis; however, other sinister pathologies cannot be excluded. Clinical correlation is recommended, and further evaluation with endoscopy may be advised if needed. 2. Cholelithiasis. 3. Mild hepatomegaly. 4. A small hiatus hernia. 5. A left lung lower lobe nodule measuring 2.5 mm. Electronically signed by Howie Cody 06-07-2024 09:[address] 06/07/24 07:01 CT head/brain wo con CLINICAL HISTORY: ams. TECHNIQUE: Multiple axial CT images of the head were obtained without contrast. A dose lowering technique was utilized adhering to the principles of ALARA. CT DOSE: 624 COMPARISON: 01/20/2023 FINDINGS: Stable encephalomalacia anterior right temporal lobe. No intracranial hemorrhage seen. No mass effect, midline shift, or hydrocephalus. Stable pontine calcifications. Stable mild chronic small vessel ischemic changes. Visualized paranasal sinuses are clear. There are multiple opacified right mastoid air cells, stable. Stable prior right craniotomy. No acute skull fracture seen. IMPRESSION: No acute findings. ACT 112: Negative or not required by law. The above report was generated using voice recognition software. It may contain grammatical, syntax or spelling errors. Electronically signed by: Derrick Sy M.D. 06/07/2024 10:40 AM Chest X-Ray 06/07/24 08:50 XR chest 1V portable CLINICAL HISTORY: weak COMPARISON STUDY: Chest radiograph and chest CT January 20, 2023. FINDINGS: Lung volumes are normal. Lungs are clear. There is no pneumothorax or pleural effusion. The heart is mildly enlarged. Mediastinal contours are normal. There is no evidence for pulmonary edema. IMPRESSION: No acute cardiopulmonary findings. ACT 112: Negative or not required by law. Electronically signed by: Kevin Morton M.D. 06/07/2024 9:24 AM Discharge Plan Visit Data Chief Complaint: Weakness Stated Complaint: WEAKNESS, CONFUSION ED Provider: Herman Newby Discharge Problem: Acute confusion, Weakness, Acute hyponatremia Forms Stand Alone Forms: [facility] [employer] Prescriptions Prescriptions: No Action levothyroxine 50 mcg tablet 50 mcg PO DAILY Qty: 90 3RF divalproex 500 mg tablet,delayed release (DR/EC) 500 mg PO BID Qty: 180 3RF Rx Instructions: Last filled 01/2024 x90 day supply. Original Directions: 500mg by mouth twice daily acetaminophen [Tylenol] 325 mg Tablet 650 mg PO Q6 PRN (Reason: Fever Or Pain) Rx Instructions: Unable to verify OTC meds at this date/time. melatonin 3 mg tablet 3 mg PO HS Qty: 30 0RF Rx Instructions: Unable to verify OTC meds at this date/time. atorvastatin 40 mg tablet 0 mg PO HS Rx Instructions: Last filled 01/2024 x90 day supply. Original Directions: 40mg by mouth daily thiamine HCl (vitamin B1) 100 mg tablet 200 mg PO BIDM Rx Instructions: Unable to verify OTC meds at this date/time. cyanocobalamin (vitamin B-12) 500 mcg tablet 1,000 mcg PO QDL Rx Instructions: Unable to verify OTC meds at this date/time. clotrimazole-betamethasone 1-0.05 % cream 1 applic topical BID PRN (Reason: Skin Irritation) omeprazole 20 mg capsule,delayed release(DR/EC) 0 mg PO DAILY Rx Instructions: Last filled 01/2024 x90 day supply. Original Directions: 20mg by mouth daily montelukast [Singulair] 10 mg tablet 0 mg PO DAILY Rx Instructions: Last filled 03/2024 x30 day supply. Original Directions: 10mg by mouth once daily potassium chloride 20 mEq tablet extended release 20 meq PO DAILY Rx Instructions: Take 1 tablet by mouth once daily Referrals Referrals: Aleshia Morton MD [Primary Care Provider] -
[2024-06-07 07:22] LABS: Basophils # (auto) 0.04 K/uL (0.00-0.20); Basophils % (auto) 0.6 %; Hematocrit (blood only) 37.5 % (37.0-47.0); Hemoglobin 13.1 g/dl (12.0-16.0); Immature Granulocytes # (auto) 0.03 K/uL (0.01-0.20); Immature Granulocytes % (auto) 0.4 %; Lymphocytes # (auto) 1.65 K/uL (1.20-3.40); Lymphocytes % (auto) 23.4 %; Mean Corpuscular Hemoglobin 31.2 pg (25.0-34.0); Mean Corpuscular Hgb Conc 34.9 g/dL (32.0-36.0); Mean Corpuscular Volume 89.3 fL (80.0-100.0); Mean Platelet Volume 9.8 fL (9.4-12.4); Monocytes # (auto) 0.89 K/uL (0.11-0.59); Monocytes % (auto) 12.6 %; Neutrophils # (auto) 4.43 K/uL (1.40-6.50); Platelet Count 154 K/uL (130-400); White Blood Count 7.04 K/ul (4.8-10.8)
[2024-06-07 07:26] LABS: iSTAT Creatinine 0.9 mg/dl (0.6-1.3); iSTAT Hemoglobin 13.3 g/dl (12.0-16.0); iSTAT Ionized Calcium 1.2 mmol/l (1.12-1.32); iSTAT Potassium 4.6 mmol/L (3.3-5.0)
[2024-06-07] MEDS: OPTIRAY 320 100ml IV ONE (07:38)
[2024-06-07 07:39] LABS: Albumin Globulin Ratio 1.4 (0.9-2); Albumin Level 4.1 gm/dl (3.4-5.0); BUN Creatinine Ratio 11.2 (10-20); Bilirubin,Total 0.7 mg/dl (0.2-1.0); Creatinine Clr Calc Pharmacy 61.4 ml/min; Globulin 2.9 gm/dl (2.5-4.0); Potassium 4.8 mmol/L (3.5-5.1)
[2024-06-07 08:31] LABS: Appearance Urine Clear (Clear); Bacteria Urine Automated None Seen (None Seen); Bilirubin Urine Negative (Negative); Blood Urine Negative (Negative); Color Urine Dark Yellow; Epithelial Cell Urine Auto 0-2 /hpf (0-2); Glucose Urine UA Negative (Negative); Ketones Urine Trace (Negative); Leukocyte Esterase Urine Negative (Negative); Nitrite Urine Negative (Negative); Protein Urine Trace (Negative); RBC Urine Automated 0-2 /hpf (0-2); Specific Gravity Urine 1.029 (1.000-1.030); Urobilinogen Urine Positive (Negative); WBC Urine Automated 0-5 /hpf (0-5); pH Urine 7.5 (4.5-7.5)
--- NOTE | 2024-06-07 09:15 | CT Scan Report ---
EXAM: CT abd pelvis IV con only CLINICAL HISTORY: EMS reports pt had been ambulating and became weak. She reportedly sat down on the floor and was too weak to get up. EMS reports was on scene but is a poor historian. Pt''s baseline is also confused. EMS reports that she has been dealing with diarrhea for some time. She denies this claim though was incontinent for EMS. She complains of pain in her abdomen but only upon palpation 94ml opti 320 TECHNIQUE: A CT scan of the abdomen and pelvis was performed with IV contrast. Coronal and sagittal reconstructive images were also obtained. 94 ml of Opti 32 was administered as an intravenous contrast agent. One of the following dose reduction techniques were utilized for this exam: Automated exposure control, adjustment of the mA and/or kV according to patient size, and use of iterative reconstruction. CTDI: 66.7 mGy, DLP: 1988.7 mGy*cm. COMPARISON: None. FINDINGS: Distal rectal short segment (about 3 cm in length) of edematous thickened wall measuring up to 15 mm with perirectal mild fat stranding. Inadequately distended gallbladder over multiple stones up to 22 mm. The gallbladder wall appears mildly thickened/edematous. No evident radiodense CBD stones were observed. The liver is mildly enlarged measuring 18 cm. No focal or diffuse parenchymal abnormality. The portal vein, intrahepatic biliary radicals, and the bile ducts are normal. The spleen, pancreas, and adrenal glands are unremarkable. The kidneys are normal in size and shape. No calculi, masses, or hydronephrosis. Tiny right renal Bosniak class 1 cysts. The ascending colon, the transverse colon, the descending colon, and the visualized small bowel loops are unremarkable. No CT evidence of acute appendicitis. A small hiatus hernia. The urinary bladder is unremarkable. No gross uterine or adnexal abnormality could be identified. Aortic atheromatous calcifications. No evidence of abdominopelvic lymphadenopathy. No ascites. A scan through the lower chest reveals a left lung lower lobe nodule measuring 2.5 mm and bilateral lung basilar atelectatic plates. Osteopenia. Degenerative changes of the scanned spine. IMPRESSION: 1. Distal rectal short segment (approximately 3 cm in length) shows an edematous thickened wall measuring up to 15 mm, with mild perirectal fat stranding. This could represent inflammation or proctitis; however, other sinister pathologies cannot be excluded. Clinical correlation is recommended, and further evaluation with endoscopy may be advised if needed. 2. Cholelithiasis. 3. Mild hepatomegaly. 4. A small hiatus hernia. 5. A left lung lower lobe nodule measuring 2.5 mm. Electronically signed by Howie Cody 06-07-2024 09:15 AM
--- NOTE | 2024-06-07 09:25 | XRay Report ---
XR chest 1V portable CLINICAL HISTORY: weak COMPARISON STUDY: Chest radiograph and chest CT January 20, 2023. FINDINGS: Lung volumes are normal. Lungs are clear. There is no pneumothorax or pleural effusion. The heart is mildly enlarged. Mediastinal contours are normal. There is no evidence for pulmonary edema. IMPRESSION: No acute cardiopulmonary findings. ACT 112: Negative or not required by law. Electronically signed by: Kevin Morton M.D. 06/07/2024 9:24 AM
--- NOTE | 2024-06-07 10:41 | CT Scan Report ---
CT head/brain wo con CLINICAL HISTORY: ams. TECHNIQUE: Multiple axial CT images of the head were obtained without contrast. A dose lowering tech nique was utilized adhering to the principles of ALARA. CT DOSE: 624 COMPARISON: 01/20/2023 FINDINGS: Stable encephalomalacia anterior right temporal lobe. No intracranial hemorrhage seen. No m ass effect, midline shift, or hydrocephalus. Stable pontine calcifications. Stable mild chronic small vessel ischemic changes. Visualized paranasal sinuses are clear. There are multiple opacified right mastoid air cells, stable. Stable prior right craniotomy. No acute skull fracture seen. IMPRESSION: No acute findings. ACT 112: Negative or not required by law. The above report was generated using voice recognition software. It may contain grammatical, syntax o r spelling errors. Electronically signed by: Derrick Sy M.D. 06/07/2024 10:40 AM
--- NOTE | 2024-06-07 10:57 | History & Physical Report ---
Date of Service June 07, 2024 Assessment & Plan (1) Ambulatory dysfunction: (2) Fecal incontinence: (3) Type 2 diabetes mellitus: (4) Generalized weakness: Plan Ashley is a 64-year-old female with PMH of T2DM, seizure disorder, recurrent herpes labialis, hypothyroidism, HLD, GERD, and chronic sinusitis. She presented on 06/07 for ambulatory dysfunction and generalized weakness. Patient is reportedly confused at baseline, and is a poor historian at this time. No family at bedside. Patient reports that she fell this morning when she went to sit on her commode. #Ambulatory dysfunction/fall/generalized weakness PT/OT evaluations appreciated Fall precautions #Proctitis/fecal incontinence Nursing staff, EMS, and son all report new onset fecal incontinence on 06/07 Clinically, patient denies saddle anesthesia, lower back pain, or hip/leg pain No leukocytosis; afebrile A/P CT was suggestive of inflammation or proctitis; ?Endoscopy potentially advised C. difficile/PCR stool studies ordered, pending Gastroenterology consult appreciated #Poor historian Son (on the phone) reports some confusion at baseline, but reports an acute change this morning She is also not alert or oriented to month of the year on admission No strokelike symptoms appreciated; no slurred speech, facial droop, unilateral deficits on clinical exam Head CT on arrival revealed no acute findings Vitamin B1 (whole blood) level drawn, pending Vitamin B12 and folate levels ordered, pending Continue supplementation #T2DM Last A1c at 6.4% on 12/23/2023 Not currently on home diabetic medications SSI with target BSG range 110-140mg/dL, CF 50, carb ratio 15 T2DM diet BSG ACHS Adjust regimen as needed AM A1c #Seizure disorder Continue valproate A.m. valproate level ordered, pending Disposition: Admit to MedSurg DNR/DNI T2DM diet, and will plan for n.p.o. at midnight VTE PPx: SCDs History of Present Illness Chief Complaint: Weakness, ambulatory function, fecal incontinence Primary Care Provider: Aleshia Morton MD Ashley is a 64-year-old female with PMH of T2DM, seizure disorder, recurrent herpes labialis, hypothyroidism, HLD, GERD, and chronic sinusitis. She presented on 06/07 for ambulatory dysfunction and generalized weakness. Patient is reportedly confused at baseline, and is a poor historian at this time. No family at bedside. Patient reports that she fell this morning when she went to sit on her commode. Her legs did not give out on her, but she went to sit back on the commode and missed. She denies head strike or LOC. She does report she was feeling lightheaded prior to the fall. No blood thinner use. Patient lives with her , and reports that her heard her fall, but she cannot get up on her own or with her 's help, and so EMS was called. Patient d enies having any pain anywhere. She does have a history of falls, and ambulates with a walker/cane at baseline. Additionally, while the patient denies fecal incontinence/diarrhea, it was reported that she has had diarrhea and weakness over the past 2 days. EMS also reported that her abdomen was tender to palpation on arrival. Patient does not believe she took her regular morning medicine today. Her son helps to manage her medicine at home by sitting up on the counter. She denies any recent change in medications. She denies any recent change in diet. No sick contacts to her knowledge. She denies smoking, tobacco use, or recent alcohol use. Patient is hypotensive at 97/61 at time admission; vitals otherwise stable. ED course: NSS 1000 mL IV ROS: Patient endorses ambulatory dysfunction, cold intolerance, lightheadedness with movements, and dry cough. Patient denies fever, chills, night-sweats, headache, chest pain, SOB, pleuritic CP, abdominal pain, N/V/D, burning with urination, blood in the urine/stool, melena, saddle anesthesia, or numbness/tingling in the arms or legs. Note: Nursing staff reported an episode of fecal incontinence while in the ED. Spoke on the phone to the patient's son (Fredo), and provided update regarding labs/imaging/admission status. Son reports that his father called him around 5 AM this morning after the patient fell while trying to stand on her commode. Son drove over, and helped lift her up from the bathroom floor. While he was holding her, she began shaking and went "limp". Son also reports that she had an episode of fecal incontinence when EMS arrived. No blood in her stool to son's knowledge. Son reports that while she does have some confusion at baseline, this was an acute change in cognitive baseline. Normally she messes up days of the week, but would be oriented to month of the year. Son reports she has not been complaining of diarrhea this past week. Son reports that there is no paperwork to the effect of medical proxy, but reports that both he and his father would be medical proxy is an emergency situation. Allergies Allergy/AdvReac Type Severity Reaction Status Date / Time Sulfa (Sulfonamide Allergy Intermediate ITCHING, Verified 06/07/24 09:57 Antibiotics) BURNING aspirin AdvReac Unknown TO AVOID Verified 06/07/24 09:57 -HX BRAIN TUMOR NOT TO TAKE Home Medications Medication Instructions Recorded Confirmed Type acetaminophen 325 mg tablet 650 mg PO Q6 PRN Fever Or Pain 01/19/23 06/07/24 History (Tylenol) melatonin 3 mg tablet 3 mg PO HS #30 tabs 01/24/23 06/07/24 Rx atorvastatin 40 mg tablet 0 mg PO HS 01/06/24 06/07/24 History clotrimazole-betamethasone 1 1 applic topical BID PRN Skin 01/06/24 06/07/24 History %-0.05 % topical cream Irritation cyanocobalamin (vitamin B-12) 500 1,000 mcg PO QDL 01/06/24 06/07/24 History mcg tablet thiamine HCl (vitamin B1) 100 mg 200 mg PO BIDM 01/06/24 06/07/24 History tablet divalproex 500 mg tablet,delayed 500 mg PO BID #180 tabs 02/05/24 06/07/24 Rx release levothyroxine 50 mcg tablet 50 mcg PO DAILY #90 tabs 03/30/24 06/07/24 Rx montelukast 10 mg tablet 0 mg PO DAILY 06/07/24 06/07/24 History (Singulair) omeprazole 20 mg capsule,delayed 0 mg PO DAILY 06/07/24 06/07/24 History release potassium chloride 20 mEq 20 meq PO DAILY 06/07/24 06/07/24 History tablet,extended release cefpodoxime 100 mg tablet 100 mg PO BID #6 tabs 06/10/24 Rx Past Med/Surg History Problem List (Updated 06/09/24 @ 13:54 by Bc Mckeon MD) Acute hyponatremia (Acute) Acute confusion (Acute) Fecal incontinence Ambulatory dysfunction Type 2 diabetes mellitus (Chronic) Recurrent herpes labialis (Chronic) Hypothyroidism (Chronic) Hyperlipidemia (Chronic) B12 deficiency (Chronic) Chronic sinusitis (Chronic) Allergic rhinitis (Chronic) Medical History (Updated 06/09/24 @ 13:54 by Bc Mckeon MD) Weakness Generalized weakness Diarrhea Ambulatory dysfunction Esophageal reflux Seizure disorder Hypomagnesemia Vitamin D deficiency History of CVA (cerebrovascular accident) lacunar infarct 09/2020>STILL HAS NUMBNESS IN RT HAND AND RT SIDE OF FACE Multiple pulmonary nodules stable on imaging - no further workup required Hx of brain cancer Right temporal glioma, s/p surgery, 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 Surgical History History of cataract surgery right Hx of colonoscopy Hx of tubal ligation Hx of section Hx of brain surgery [facility] Family History Grandmother Family history of diabetes mellitus Father Myocardial infarction Other No significant family history Denies family history of Ovarian cancer Prostate cancer Breast cancer Colorectal cancer Social History (Updated 04/21/24 @ 08:39 by Traci Roth LPN) Smoking Status: Never smoker Tobacco Type: Smokeless Tobacco (Dip or Chew) Second Hand Exposure: No; Do You Dip or Chew Tobacco: Yes (on occassion); Hx Alcohol Use: No Hx Substance Use: No Preferred Language: Nicaraguan Communication Ability: Effective Communication Ability Comment: TROUBLE HEARING OUT OF RIGHT SIDE Morning Show Host Required: No Beliefs That Will Affect Care: None marital status: Current Living Situation: Spouse current occupational status: employed 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 Childhood Exposure to Second-Hand Smoke: Yes Diet: regular caffeine: Yes (diet soda) Dental Care, Regularly: No Physical Activity Frequency: Does not Exercise Seatbelt Use: always Sunscreen Use: Yes Assistive Devices: Cane, Stair Lift and Walker Review of Systems Review of Systems: See HPI above Physical Exam Physical Exam: General: no acute distress; pleasant affect; non-toxic appearing; well- nourished; cooperative HEENT: normocephalic, atraumatic; no scleral icterus; PERRLA w/ EOMs intact; vision and hearing grossly intact Neck: supple; no lymphadenopathy; trachea midline Skin: warm, dry without signs of tenting; no cyanosis; intertrigo noted underneath the breast bilaterally and abdominal pannus CV: chest wall NTP; RRR; S1/S2 normal; no murmurs/rubs/gallops; pulses intact and symmetric at radial, DP, and PT Lungs: no acute respiratory distress; symmetrical chest wall expansion; clear breath sounds across all lung mathis w/o adventitious sounds; no wheezing ABD: Soft, NTP in all 4 quadrant; negative suprapubic tenderness; BS present; no rebound/guarding; no distention MSK: no tics or fasciculations; nonpitting edema noted in the LEs b/l, nonerythematous; 3/5 leg strength bilaterally when lifting leg supine Neuro: Patient is alert and oriented to name, , and location; she is not oriented to month of the year; normal mood and affect; fluent speech, but slow to respond to questioning; no facial droop; no focal deficits appreciated; she reports sensation is intact and symmetric in lower extremities bilaterally assessed via light touch Results & Data Results & Data Vital Signs (Past 12 Hours) Vital Signs Temp Pulse Pulse Resp BP BP Pulse Ox 06/07/24 10:00 36.9 C 70 20 97/61 L 100 06/07/24 08:21 75 06/07/24 08:08 36.8 C 77 20 134/79 100 06/07/24 07:11 74 14 100 06/07/24 07:11 100 06/07/24 07:01 36.8 C 73 14 121/76 100 O2 Del Method O2 Flow Rate 06/07/24 10:00 Room Air 06/07/24 08:21 06/07/24 08:08 Room Air 06/07/24 07:11 Room Air 06/07/24 07:11 Room Air 0 06/07/24 07:01 Room Air Laboratory Results Abnormal lab results 06/07/24 06/07/24 06/07/24 Range/Units 07:01 07:11 08:02 Power # (Auto) 0.89 H (0.11-0.59) K/uL POC Sodium 133 L (135-144) mmol/L Sodium 133 L (136-145) mmol/L POC Chloride 96 L (101-112) mmol/L Chloride 97 L (98-107) mmol/L Glucose 173 H (70-99(Fasting)) mg/dl POC Glucose (other) 168 H (70-99) mg/dl AST 11 L (13-39) U/L Urine Protein Trace H (Negative) Urine Ketones Trace H (Negative) Urine Urobilinogen Positive H (Negative) U Hyaline Cast (Auto) 3-5 H (0-2) /lpf Diagnostic Findings Abdomen/Pelvis CT 06/07/24 07:01 EXAM: CT abd pelvis IV con only CLINICAL HISTORY: EMS reports pt had been ambulating and became weak. She reportedly sat down on the floor and was too weak to get up. EMS reports was on scene but is a poor historian. Pt''s baseline is also confused. EMS reports that she has been dealing with diarrhea for some time. She denies this claim though was incontinent for EMS. She complains of pain in her abdomen but only upon palpation 94ml opti 320 TECHNIQUE: A CT scan of the abdomen and pelvis was performed with IV contrast. Coronal and sagittal reconstructive images were also obtained. 94 ml of Opti 32 was administered as an intravenous contrast agent. One of the following dose reduction techniques were utilized for this exam: Automated exposure control, adjustment of the mA and/or kV according to patient size, and use of iterative reconstruction. CTDI: 66.7 mGy, DLP: 1988.7 mGy*cm. COMPARISON: None. FINDINGS: Distal rectal short segment (about 3 cm in length) of edematous thickened wall measuring up to 15 mm with perirectal mild fat stranding. Inadequately distended gallbladder over multiple stones up to 22 mm. The gallbladder wall appears mildly thickened/edematous. No evident radiodense CBD stones were observed. The liver is mildly enlarged measuring 18 cm. No focal or diffuse parenchymal abnormality. The portal vein, intrahepatic biliary radicals, and the bile ducts are normal. The spleen, pancreas, and adrenal glands are unremarkable. The kidneys are normal in size and shape. No calculi, masses, or hydronephrosis. Tiny right renal Bosniak class 1 cysts. The ascending colon, the transverse colon, the descending colon, and the visualized small bowel loops are unremarkable. No CT evidence of acute appendicitis. A small hiatus hernia. The urinary bladder is unremarkable. No gross uterine or adnexal abnormality could be identified. Aortic atheromatous calcifications. No evidence of abdominopelvic lymphadenopathy. No ascites. A scan through the lower chest reveals a left lung lower lobe nodule measuring 2.5 mm and bilateral lung basilar atelectatic plates. Osteopenia. Degenerative changes of the scanned spine. IMPRESSION: 1. Distal rectal short segment (approximately 3 cm in length) shows an edematous thickened wall measuring up to 15 mm, with mild perirectal fat stranding. This could represent inflammation or proctitis; however, other sinister pathologies cannot be excluded. Clinical correlation is recommended, and further evaluation with endoscopy may be advised if needed. 2. Cholelithiasis. 3. Mild hepatomegaly. 4. A small hiatus hernia. 5. A left lung lower lobe nodule measuring 2.5 mm. Electronically signed by Howie Cody 06-07-2024 09:[address] 06/07/24 07:01 CT head/brain wo con CLINICAL HISTORY: ams. TECHNIQUE: Multiple axial CT images of the head were obtained without contrast. A dose lowering technique was utilized adhering to the principles of ALARA. CT DOSE: 624 COMPARISON: 01/20/2023 FINDINGS: Stable encephalomalacia anterior right temporal lobe. No intracranial hemorrhage seen. No mass effect, midline shift, or hydrocephalus. Stable pontine calcifications. Stable mild chronic small vessel ischemic changes. Visualized paranasal sinuses are clear. There are multiple opacified right mastoid air cells, stable. Stable prior right craniotomy. No acute skull fracture seen. IMPRESSION: No acute findings. ACT 112: Negative or not required by law. The above report was generated using voice recognition software. It may contain grammatical, syntax or spelling errors. Electronically signed by: Derrick Sy M.D. 06/07/2024 10:40 AM Chest X-Ray 06/07/24 08:50 XR chest 1V portable CLINICAL HISTORY: weak COMPARISON STUDY: Chest radiograph and chest CT January 20, 2023. FINDINGS: Lung volumes are normal. Lungs are clear. There is no pneumothorax or pleural effusion. The heart is mildly enlarged. Mediastinal contours are normal. There is no evidence for pulmonary edema. IMPRESSION: No acute cardiopulmonary findings. ACT 112: Negative or not required by law. Electronically signed by: Kevin Morton M.D. 06/07/2024 9:24 AM Code Status & VTE Plan VTE Prophylaxis Plan VTE Prophylaxis will be ordered: Yes Supervising Physician Co-Signing Physician Notes I personally saw and examined the patient. I independently reviewed the labs, EKG, imaging, problem list, medication list, past medical history and family history. I verified all cisneros points and agree with Khurram Hayes PA-C with the following exceptions and/or additions: 64 year old female presents to the ER with ambulatory dysfunction and fall. Unable to get any new significant history from patient. O/E HS RRR, no murmurs, Chest CTAB, Abdo SNT, no CVA tenderness A/P Ambulatory dysfunction - PT/OT Diarrhea / proctitis - stool PCR, consult GI for proctitis PG Care Time/CCT Total # of Minutes Spent Total Time Spent with Patient: Total time spent is greater than 50% in coordination of care (as documented) at patient's floor/unit and/or counseling patient: [place] [address] INT INP/OBS CARE 3/75MIN Patient Type Established Medical Decision Making High Complexity Diagnoses Ambulatory dysfunction R26.2 Fecal incontinence R15.9 Type 2 diabetes mellitus E11.9 Generalized weakness R53.1
[2024-06-07 12:01] LABS: Magnesium 1.8 mg/dl (1.7-2.4)
[2024-06-07 12:16] LABS: Thyroid Stimulating Hormone 3.505 uIu/ml (0.300-4.500)
[2024-06-07 12:57] LABS: Folate (Folic Acid),Ser orPlas 21.74 ng/ml (>5.38)
[2024-06-07] MEDS ORDERED: ONDANSETRON INJ 2 MG/ML 2 ML VIAL IV PRN (14:32)
[2024-06-07] MEDS ORDERED: DEXTROSE 50% 50 ML SYRINGE IV PRN (14:32)
[2024-06-07] MEDS ORDERED: MELATONIN 3 MG TAB PO PRN (14:32)
[2024-06-07] MEDS ORDERED: CLOTRIMAZOLE/BETAMETHASONE CR 15 GM TUBE EXT PRN (14:32)
[2024-06-07] MEDS ORDERED: ACETAMINOPHEN 325 MG TAB PO PRN (14:32)
[2024-06-07] MEDS ORDERED: GLUCOSE 40% GEL 15 GM TUBE PO PRN (14:32)
[2024-06-07] MEDS ORDERED: GLUCOSE 10 TAB/TUBE PO PRN (14:32)
[2024-06-07] MEDS ORDERED: CARBOHYDRATES FOR HYPOGLYCEMIA PO PRN (14:32)
[2024-06-07] MEDS ORDERED: GLUCAGON FOR INJ 1 MG VIAL SQ PRN (14:32)
[2024-06-07] MEDS: DIVALPROEX DELAY RELEASE 500 MG TAB PO SCH (17:08)
[2024-06-07] MEDS: THIAMINE HCL 100 MG TAB PO SCH (17:08)
[2024-06-07] MEDS: INSULIN ASPART PER UNIT CHARGE SC SCH (17:12)
[2024-06-07] MEDS: MELATONIN 3 MG TAB PO SCH (20:30)
[2024-06-07] MEDS: ATORVASTATIN 40 MG TAB PO SCH (20:30)
[2024-06-08] MEDS ORDERED: Nursing to Pharmacy Communication SCH ×2 (04:30→10:15)
[2024-06-08] MEDS: INSULIN ASPART PER UNIT CHARGE SC SCH ×2 (06:17→12:02)
[2024-06-08 06:33] LABS: Hematocrit (blood only) 30.8 % (37.0-47.0); Hemoglobin 10.8 g/dl (12.0-16.0); Mean Corpuscular Hemoglobin 31.9 pg (25.0-34.0); Mean Corpuscular Hgb Conc 35.1 g/dL (32.0-36.0); Mean Corpuscular Volume 90.9 fL (80.0-100.0); Mean Platelet Volume 9.8 fL (9.4-12.4); Platelet Count 123 K/uL (130-400); RDW Coefficient of Variation 12.8 % (11.5-14.5); RDW Standard Deviation 42.5 fL (36.4-46.3); Red Blood Count 3.39 M/uL (4.20-5.40); White Blood Count 5.51 K/ul (4.8-10.8)
[2024-06-08 06:34] LABS: BUN Creatinine Ratio 16.9 (10-20); Calcium 8.7 mg/dl (8.6-10.3); Magnesium 1.8 mg/dl (1.7-2.4); Potassium 4.1 mmol/L (3.5-5.1)
[2024-06-08 07:13] LABS: Estimated Average Glucose 131 mg/dl; Hemoglobin A1C 6.2 % (4.5-5.6)
[2024-06-08] MEDS: LEVOTHYROXINE SODIUM 50 MCG TABLET PO SCH (07:54)
[2024-06-08] MEDS: MONTELUKAST SODIUM 10 MG TABLET PO SCH (07:54)
[2024-06-08] MEDS: CYANOCOBALAMIN (B-12) 500 MCG TABLET PO SCH (07:55)
[2024-06-08] MEDS: PANTOprazole 40 MG TAB PO SCH (07:55)
--- NOTE | 2024-06-08 08:58 | Hospitalist Progress Note ---
Date of Service June 08, 2024 Assessment & Plan (1) Fecal incontinence: (2) Ambulatory dysfunction: (3) Type 2 diabetes mellitus: (4) Seizure disorder: (5) Recurrent herpes labialis: (6) Hypothyroidism: (7) Hyperlipidemia: (8) Esophageal reflux: (9) Chronic sinusitis: Plan Ashley is a 64-year-old female with PMH of T2DM, seizure disorder, recurrent herpes labialis, hypothyroidism, HLD, GERD, and chronic sinusitis. She presented on 06/07 for ambulatory dysfunction and generalized weakness. Nursing staff, EMS, and pt's son also report ~2d fecal incontinence. Patient is reportedly confused at baseline & has ongoing ambulatory dysfunction. #Ambulatory dysfunction/fall/generalized weakness - PT/OT evaluations appreciated - Fall precautions #Proctitis/fecal incontinence - Nursing staff, EMS, and son all reported new onset fecal incontinence on 06/07. Patient acknowledges recent "diarrhea" but denies saddle anesthesia, lower back pain, or hip/leg pain. Initial labs w/o leukocytosis. Pt remains afebrile w VSS. CTAP was suggestive of inflammation or proctitis. - C. difficile/PCR stool studies ordered, pending - Gastroenterology consulted, appreciate input - Clear liquid diet today --> NPO at midnight - Stool infectious panel pending; if neg, plan for colonoscopy tomorrow #Confusion/poor historian - Son (on the phone) reports some confusion at baseline, but reports an acute change since 06/07 AM. Pt was not alert or oriented to month of the year on admission. No strokelike symptoms were appreciated (no slurred speech, facial droop, focal deficits). - Head CT on arrival revealed no acute findings. Vitamin B1 (whole blood) level drawn, pending. Vitamin B12 1149; folate 21.74 - Continue supplementation #T2DM - A1c this AM 6.2%, comparable to prev (6.4% on 12/23/2023) - Not managed w any medications at home - Mangaged w SSI in hospital CF 50, CR 15, target BG range 110-140 - BSG ACHS #Seizure disorder - Continue valproate; level this AM within therapeutic range Diet: Clear liquids per GI; NPO at midnight Code: DNR/DNI VTE PPx: SCDs [facility]tic[facility]ated Discharge Date Admission Date: June 07, 2024 Supervising Physician Co-Signing Physician Notes I personally examined the patient and verified all cisneros points of history and exam, discussed case, and agree with decision making with Dr Mcnamara Feeling better. Eating clear liquids well. No abdominal pain no current diarrhea. Vitals noted, in general she is awake and alert pleasant no distress. HEENT normocephalic atraumatic mucous membranes moist. Breathing unlabored no accessory muscle use good effort. Skin without rashes pallor or icterus. Neuro without focal deficits. Abdomen soft nondistended nontender no masses organomegaly weakness/fecal incontinenceoverall her picture would fit fairly well with a viral gastroenteritis. At the same time appreciate GIs approach to investigate proctitis furtherparticularly if her clinical picture ends up not fitting with a infectious process. Continue clear liquid diet. Otherwise as above. Subjective Very lucid today. Explains circumstances of fall ("missed" the toilet) and how and son were unable to help her up. Reports a few days of diarrhea, not further described. Denies any abd pain, n/v, blood in stool, abnormal LE sensation or weakness. Understands plan involving GI. Looking forward to eating anything. Review of Systems 2 Review of Systems: As per HPI. Physical Exam 2 Physical Exam: Gen: NAD, WD/WN, answers questions appropriately HEENT: NCAT, PERRL, MMM CV: RRR, no m/r/g, S1/S2 normal, cap refill < 3 Resp: CTAB, symmetrical chest rise, breathing non-labored Abd: Soft, NT/ND, +BS, no HSM MSK: Full ROM, normal str, no gross deformities Skin: Warm, dry, pink, no rashes or lesions Neuro: AOx3, CN II-XII grossly intact Results & Data Results & Data Vital Signs (Past 12 Hours) Vital Signs Temp Pulse Resp BP Pulse Ox O2 Del Method 06/08/24 07:20 Room Air 06/08/24 07:09 36.4 C L 67 18 107/67 95 Room Air 06/08/24 06:17 93/58 L Laboratory Results 06/08/24 05:47 06/08/24 05:47 Resident Activity Tracking Resident Involvement: Resident Care Provided Care Provided: Adult Hospital Medicine
[2024-06-08] MEDS: POTASSIUM CHLORIDE CRTAB 20 MEQ TABCR PO SCH (09:03)
--- NOTE | 2024-06-08 09:28 | Gastrointestinal Consultation ---
Date of Consultation June 08, 2024 Assessment & Plan (1) Fecal incontinence: 64 year old female with history of ambulatory dysfunction, T2DM, seizure disorder, dyslipidemia, hypothyroidism and others below admitted w/ weakness and ambulatory dysfunction w/ reports of diarrhea, fecal incontinence and abnormal imaging w/ proctitis. Last colonoscopy in 2016 w/ just report of hemorrhoids. - Check stool studies including c.diff - May have clear liquid diet today - If stool studies negative for infectious etiology, plan for colonoscopy - NPO after midnight We appreciate assistance in the management of any serological abnormality and corrections to include: hemoglobin >7, INR <2, platelets >50,000, potassium levels >3.5 but <5.3, and sodium levels within 5 points of the reference range prior to endoscopic evaluation. Thank you for allowing us to participate in the care of this patient. Please call with any acute changes, questions or concerns. Please see addendum below with additional recommendation from my supervising physician. I spent a total of 60 minutes on the date of service in review of patient's record, and previously obtained information in person and appropriate medical visit, discussion and education of plan, with patient and/or caregiver, placing orders for tests/referral/procedures as medically necessary and documentation of pertinent clinical information in patient's medical records for their visit today. Supervising Physician Co-Signing Physician Notes I personally saw and examined the patient. I have reviewed the chart and agree with the documentation provided by the ROUTE AGENT including discussion about the assessment, treatment and plan. Briefly, 64 year old female with history of ambulatory dysfunction, T2DM, seizure disorder, dyslipidemia, hypothyroidism and others below admitted w/ weakness and ambulatory dysfunction w/ reports of diarrhea, fecal incontinence and abnormal imaging w/ proctitis. Last colonoscopy in 2017 w/ just report of hemorrhoids; diarrhea has persisted over the past 3-6 months. As long as stool cultures are negative, will proceed with a colonoscopy tomorrow. Proctitis and colitis from 0 to 15 cm suspicious for IBD History of Present Illness Reason for Consultation: Proctitis; new onset fecal incontinence Requesting Physician: Herman Steve DO Attending Physician: Herman Steve DO History of Present Illness 64 year old female with history of ambulatory dysfunction, T2DM, seizure disorder, dyslipidemia, hypothyroidism and others below admitted w/ weakness and ambulatory dysfunction. GI was asked to evaluate for proctitis and diarrhea w/ incontinence. Pt was seen, chart reviewed. She is a a poor historian. Suggests change in bowel habits about 6 months ago. Typically loose stools. No report of black or bloody stools. She has had episodes of incontinence. She suggests this is due to the urgency of her stool and inability to make it to a restroom in time. No abd pain. No nausea/vomiting. Weight stable. No fever, chills, CP, SOB. CTAP 2024: Distal rectal short segment (approximately 3 cm in length) shows an edematous thickened wall measuring up to 15 mm, with mild perirectal fat stranding. This could represent inflammation or proctitis; however, other sinister pathologies cannot be excluded. Clinical correlation is recommended, and further evaluation with endoscopy may be advised if needed. Colonoscopy 2017: hemorrhoids Family history of GI malignancy: none Allergies Allergy/AdvReac Type Severity Reaction Status Date / Time Sulfa (Sulfonamide Allergy Intermediate ITCHING, Verified 06/07/24 09:57 Antibiotics) BURNING aspirin AdvReac Unknown TO AVOID Verified 06/07/24 09:57 -HX BRAIN TUMOR NOT TO TAKE Home Medications Medication Instructions Recorded Confirmed Type acetaminophen 325 mg tablet 650 mg PO Q6 PRN Fever Or Pain 01/19/23 06/07/24 History (Tylenol) melatonin 3 mg tablet 3 mg PO HS #30 tabs 01/24/23 06/07/24 Rx atorvastatin 40 mg tablet 0 mg PO HS 01/06/24 06/07/24 History clotrimazole-betamethasone 1 1 applic topical BID PRN Skin 01/06/24 06/07/24 History %-0.05 % topical cream Irritation cyanocobalamin (vitamin B-12) 500 1,000 mcg PO QDL 01/06/24 06/07/24 History mcg tablet thiamine HCl (vitamin B1) 100 mg 200 mg PO BIDM 01/06/24 06/07/24 History tablet divalproex 500 mg tablet,delayed 500 mg PO BID #180 tabs 02/05/24 06/07/24 Rx release levothyroxine 50 mcg tablet 50 mcg PO DAILY #90 tabs 03/30/24 06/07/24 Rx montelukast 10 mg tablet 0 mg PO DAILY 06/07/24 06/07/24 History (Singulair) omeprazole 20 mg capsule,delayed 0 mg PO DAILY 06/07/24 06/07/24 History release potassium chloride 20 mEq 20 meq PO DAILY 06/07/24 06/07/24 History tablet,extended release Patient History Medical History (Updated 06/07/24 @ 12:45 by Herman Newby DO) Hypomagnesemia Vitamin D deficiency History of CVA (cerebrovascular accident) lacunar infarct 09/2020>STILL HAS NUMBNESS IN RT HAND AND RT SIDE OF FACE Multiple pulmonary nodules stable on imaging - no further workup required Hx of brain cancer Right temporal glioma, s/p surgery, 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 Surgical History History of cataract surgery right Hx of colonoscopy Hx of tubal ligation Hx of section Hx of brain surgery 2000-[facility] [address] Family History Grandmother Family history of diabetes mellitus Father Myocardial infarction Other No significant family history Denies family history of Ovarian cancer Prostate cancer Breast cancer Colorectal cancer Social History (Updated 04/21/24 @ 08:39 by Traci Roth LPN) Smoking Status: Never smoker Tobacco Type: Smokeless Tobacco (Dip or Chew) Second Hand Exposure: No; Do You Dip or Chew Tobacco: Yes (on occassion); Hx Alcohol Use: No Hx Substance Use: No Preferred Language: Honduran Communication Ability: Effective Communication Ability Comment: TROUBLE HEARING OUT OF RIGHT SIDE Puffer Tender Required: No Beliefs That Will Affect Care: None marital status: Current Living Situation: Spouse current occupational status: employed 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 Childhood Exposure to Second-Hand Smoke: Yes Diet: regular caffeine: Yes (diet soda) Dental Care, Regularly: No Physical Activity Frequency: Does not Exercise Seatbelt Use: always Sunscreen Use: Yes Assistive Devices: Denture - Upper, Denture - Lower, Glasses and Hospital Bed Review of Systems Review of Systems: All other findings negative except as noted in HPI. Physical Exam Constitutional: WD/WN, vitals as above Respiratory: normal respiratory effort Cardiovascular: Rate/Rhythm: regular rate Gastrointestinal (Abdomen): Inspection/Auscultation: normal bowel sounds Percussion/Palpation: abdomen soft; abdomen nontender Skin: no rashes, warm and dry Results & Data Vital Signs (Past 12 Hours) Vital Signs Temp Pulse Resp BP Pulse Ox O2 Del Method 06/08/24 07:20 Room Air 06/08/24 07:09 97.5 F L 67 18 107/67 95 Room Air 06/08/24 06:17 93/58 L Laboratory Results 06/08/24 06/08/24 06/07/24 Range/Units 06:15 05:47 20:24 WBC 5.51 (4.8-10.8) K/ul RBC 3.39 L (4.20-5.40) M/uL Hgb 10.8 L (12.0-16.0) g/dl Hct 30.8 L (37.0-47.0) % MCV 90.9 (80.0-100.0) fL MCH 31.9 (25.0-34.0) pg MCHC 35.1 (32.0-36.0) g/dL RDW Std Deviation 42.5 (36.4-46.3) fL RDW Coeff of Juliet 12.8 (11.5-14.5) % Plt Count 123 L (130-400) K/uL MPV 9.8 (9.4-12.4) fL Sodium 135 L (136-145) mmol/L Potassium 4.1 (3.5-5.1) mmol/L Chloride 103 (98-107) mmol/L Carbon Dioxide 26 (21-32) mmol/L Anion Gap 6 (3-11) BUN 12 (6-23) mg/dl Creatinine 0.71 (0.6-1.2) mg/dl Est Cr Clr Drug Dosing 77.0 ml/min eGFR 93.72 BUN/Creatinine Ratio 16.9 (10-20) Glucose 112 H (70-99(Fasting)) mg/dl POC Glucose 114 H 145 H (70-99) mg/dl Estimat Average Glucose 131 mg/dl Hemoglobin A1c 6.2 H (4.5-5.6) % Calcium 8.7 (8.6-10.3) mg/dl Magnesium 1.8 (1.7-2.4) mg/dl Whole Bld Vitamin B1 Vitamin B12 (180-914) pg/ml Folate (>5.38) ng/ml TSH (0.300-4.500) uIu/ml Valproic Acid Pending 06/07/24 06/07/24 06/07/24 Range/Units 16:30 12:04 07:01 WBC (4.8-10.8) K/ul RBC (4.20-5.40) M/uL Hgb (12.0-16.0) g/dl Hct (37.0-47.0) % MCV (80.0-100.0) fL MCH (25.0-34.0) pg MCHC (32.0-36.0) g/dL RDW Std Deviation (36.4-46.3) fL RDW Coeff of Juliet (11.5-14.5) % Plt Count (130-400) K/uL MPV (9.4-12.4) fL Sodium (136-145) mmol/L Potassium (3.5-5.1) mmol/L Chloride (98-107) mmol/L Carbon Dioxide (21-32) mmol/L Anion Gap (3-11) BUN (6-23) mg/dl Creatinine (0.6-1.2) mg/dl Est Cr Clr Drug Dosing ml/min eGFR BUN/Creatinine Ratio (10-20) Glucose (70-99(Fasting)) mg/dl POC Glucose 103 H (70-99) mg/dl Estimat Average Glucose mg/dl Hemoglobin A1c (4.5-5.6) % Calcium (8.6-10.3) mg/dl Magnesium 1.8 (1.7-2.4) mg/dl Whole Bld Vitamin B1 Pending Vitamin B12 1149 H (180-914) pg/ml Folate 21.74 (>5.38) ng/ml TSH 3.505 (0.300-4.500) uIu/ml Valproic Acid PG Care Time/CCT Total # of Minutes Spent Total Time Spent with Patient: Total time spent is greater than 50% in coordination of care (as documented) at patient's floor/unit and/or counseling patient: Coding Level of Care Code None Diagnoses Fecal incontinence R15.9
--- NOTE | 2024-06-08 16:01 | Billing Data ---
Date of Service June 08, 2024 Coding Level of Care Code 24730 SUB INP/OBS CARE
[2024-06-08] MEDS: LAVAGE SOLUTION 4000ML PO SCH (16:26)
[2024-06-08 19:40] LABS: Adenovirus F 40/41 PCR Not Detected (NotDetected); Astrovirus PCR Not Detected (NotDetected); Campylobacter PCR Not Detected (NotDetected); Cryptosporidium PCR Not Detected (NotDetected); Cyclospora cayetanensis PCR Not Detected (NotDetected); Entamoeba histolytica PCR Not Detected (NotDetected); Enteroaggregative E.coli(EAEC) Not Detected (NotDetected); Enteropathogenic E.coli (EPEC) Not Detected (NotDetected); Enterotoxigenic E.coli (ETEC) Not Detected (NotDetected); Giardia lamblia PCR Not Detected (NotDetected); Norovirus GI/GII PCR Not Detected (NotDetected); Plesiomonas shigelloides PCR Not Detected (NotDetected); Rotavirus A PCR Not Detected (NotDetected); Salmonella PCR Not Detected (NotDetected); Sapovirus PCR Not Detected (NotDetected); Shiga-like Toxin E.coli (STEC) Not Detected (NotDetected); Shigella/Enteroinvasive E.coli Not Detected (NotDetected); Vibrio cholerae PCR Not Detected (NotDetected); Vibrio species PCR Not Detected (NotDetected); Yersinia enterocolitica PCR Not Detected (NotDetected)
[2024-06-09] MEDS ORDERED: Nursing to Pharmacy Communication SCH ×2 (05:45→17:30)
[2024-06-09] MEDS: INSULIN ASPART PER UNIT CHARGE SC SCH ×2 (06:17→21:04)
--- NOTE | 2024-06-09 09:10 | Gastroenterology Progress Note ---
Date of Service June 09, 2024 Assessment & Plan (1) Fecal incontinence: Plan: 64 year old female with history of ambulatory dysfunction, T2DM, seizure disorder, dyslipidemia, hypothyroidism and others below admitted w/ weakness and ambulatory dysfunction w/ reports of diarrhea, fecal incontinence and abnormal imaging w/ proctitis. Last colonoscopy in 2017 w/ just report of hemorrhoids. - Maintain NPO status - Tap water enema now - Repeat tap water enema around noon - Plan for colonoscopy today We appreciate assistance in the management of any serological abnormality and corrections to include: hemoglobin >7, INR <2, platelets >50,000, potassium leve ls >3.5 but <5.3, and sodium levels within 5 points of the reference range prior to endoscopic evaluation. Thank you for allowing us to participate in the care of this patient. Please call with any acute changes, questions or concerns. Please see addendum below with additional recommendation from my supervising physician. Admission and Anticipated Discharge Date Admission Date: June 07, 2024 Supervising Physician Co-Signing Physician Notes I personally saw and examined the patient. I have reviewed the chart and agree with the documentation provided by the FRAUD PREVENTION ANALYST including discussion about the assessment, treatment and plan. Briefly, fecal incontinence with diarrhea with colitis from 0 to 15 cm. Cultures are unrevealing. Question of inflammatory bowel disease. Will proceed with a colonoscopy today. Can we give her tap water enema prior to that. She is otherwise willing to proceed. Subjective NPO for colonoscopy. Stool studies negative. Tolerated prep, however, stools are not clear. Reports brown stool but almost mostly liquid. Review of Systems Review of Systems: All other findings negative except as noted in HPI. Physical Exam Constitutional: WD/WN, vitals as above Respiratory: normal respiratory effort, lungs clear to auscultation Cardiovascular: RRR, no murmur, no edema Gastrointestinal (Abdomen): normal bowel sounds, soft, nontender, no hepatosplenomegaly Skin: no rashes, warm and dry Results & Data Results & Data Vital Signs (Past 12 Hours) Vital Signs Temp Pulse Resp BP Pulse Ox O2 Del Method 06/09/24 07:00 97.9 F 61 16 101/61 95 Room Air 06/08/24 21:50 Room Air Laboratory Results 06/09/24 06/08/24 06/08/24 Range/Units 06:15 20:27 18:10 POC Glucose 108 H 127 H (70-99) mg/dl Stl C. cayetanensis PCR Not Detected (NotDetected) Stool Rotavirus A PCR Not Detected (NotDetected) Stl Adenov F 40/41 PCR Not Detected (NotDetected) Stool Astrovirus (PCR) Not Detected (NotDetected) Stool Campylobacter PCR Not Detected (NotDetected) Stl C. diff Tox B Gene Negative Cdiff Gene (Neg) Stool Cryptosporidium PCR Not Detected (NotDetected) Stl E.coli Shiga Tox PCR Not Detected (NotDetected) Stl Enterotoxigenic E PCR Not Detected (NotDetected) Stool EPEC (PCR) Not Detected (NotDetected) Stool EAEC (PCR) Not Detected (NotDetected) Stl E. histolytica PCR Not Detected (NotDetected) Stool Giardia Lamblia PCR Not Detected (NotDetected) Stool Salmonella PCR Not Detected (NotDetected) Stool Sapovirus (PCR) Not Detected (NotDetected) Stl P. shigelloides PCR Not Detected (NotDetected) Stl Shigella/EIEC PCR Not Detected (NotDetected) St Y.enterocolitica PCR Not Detected (NotDetected) Stool Vibrio (PCR) Not Detected (NotDetected) Stl Vibrio cholerae PCR Not Detected (NotDetected) Stl Norovirus GI/GII PCR Not Detected (NotDetected) Valproic Acid (50-100) mcg/ml 06/08/24 06/08/24 06/08/24 Range/Units 16:32 11:33 05:47 POC Glucose 87 141 H (70-99) mg/dl Stl C. cayetanensis PCR (NotDetected) Stool Rotavirus A PCR (NotDetected) Stl Adenov F 40/41 PCR (NotDetected) Stool Astrovirus (PCR) (NotDetected) Stool Campylobacter PCR (NotDetected) Stl C. diff Tox B Gene (Neg) Stool Cryptosporidium PCR (NotDetected) Stl E.coli Shiga Tox PCR (NotDetected) Stl Enterotoxigenic E PCR (NotDetected) Stool EPEC (PCR) (NotDetected) Stool EAEC (PCR) (NotDetected) Stl E. histolytica PCR (NotDetected) Stool Giardia Lamblia PCR (NotDetected) Stool Salmonella PCR (NotDetected) Stool Sapovirus (PCR) (NotDetected) Stl P. shigelloides PCR (NotDetected) Stl Shigella/EIEC PCR (NotDetected) St Y.enterocolitica PCR (NotDetected) Stool Vibrio (PCR) (NotDetected) Stl Vibrio cholerae PCR (NotDetected) Stl Norovirus GI/GII PCR (NotDetected) Valproic Acid 98 (50-100) mcg/ml PG Care Time/CCT Total # of Minutes Spent Total Time Spent with Patient: Total time spent is greater than 50% in coordination of care (as documented) at patient's floor/unit and/or counseling patient: Coding Level of Care Code None Diagnoses Fecal incontinence R15.9
--- NOTE | 2024-06-09 12:18 | Hospitalist Progress Note ---
Date of Service June 09, 2024 Assessment & Plan (1) Fecal incontinence: (2) Type 2 diabetes mellitus: (3) Recurrent herpes labialis: (4) Hypothyroidism: (5) Hyperlipidemia: (6) Chronic sinusitis: Plan Ashley is a 64-year-old female with PMH of T2DM, seizure disorder, recurrent herpes labialis, hypothyroidism, HLD, GERD, and chronic sinusitis. She presented on 06/07 for ambulatory dysfunction and generalized weakness. Nursing staff, EMS, and pt's son also report ~2d fecal incontinence. Patient is reportedly confused at baseline & has ongoing ambulatory dysfunction. #Ambulatory dysfunction/fall/generalized weakness - PT/OT evaluations appreciated - Fall precautions #Proctitis/fecal incontinence - Nursing staff, EMS, and son all reported new onset fecal incontinence on 06/07. Patient acknowledges recent "diarrhea" but denies saddle anesthesia, lower back pain, or hip/leg pain. Initial labs w/o leukocytosis. Pt remains afebrile w VSS. CTAP was suggestive of inflammation or proctitis. - Stool infectious panel negative - Gastroenterology consulted, appreciate input - Didn't finish bowel prep overnight; plan for enema today then colonoscopy - Plan for d/c tomorrow #Confusion/poor historian - Son (on the phone) reports some confusion at baseline, but reports an acute change since 06/07 AM. Pt was not alert or oriented to month of the year on admission. No strokelike symptoms were appreciated (no slurred speech, facial droop, focal deficits). - Head CT on arrival revealed no acute findings. Vitamin B1 LLN at 8. Vitamin B12 elevated to 1149; folate wnl at 21.74 - Continue supplementation #T2DM - A1c this AM 6.2%, comparable to prev (6.4% on 12/23/2023) - Not managed w any medications at home - Mangaged w SSI in hospital CF 50, CR 15, target BG range 110-140 - BSG ACHS #Seizure disorder - Continue valproate; level this admission within therapeutic range Diet: Regular after procedure Code: DNR/DNI VTE PPx: SCDs Disposition: MedSurg Admission and Anticipated Discharge Date Admission Date: June 07, 2024 Supervising Physician Co-Signing Physician Notes I personally examined the patient and verified all cisneros points of history and exam, discussed case, and agree with decision making with Dr Mcnamara Seen after colonoscopy and would like to go home. notes that he cannot take her home until Thursday. We tried to work around this multiple ways but ultimately he refused to take her. Vitals noted, in general she is awake and alert pleasant no distress. HEENT normocephalic atraumatic mucous membranes moist. Breathing unlabored no accessory muscle use good effort. Skin without rashes pallor or icterus. Neuro without focal deficits. weakness/fecal incontinenceoverall her picture would fit fairly well with a viral gastroenteritis. At the same time appreciate GIs approach to investigate proctitis further Fortunately nothing ominous found on scope. Stable for home, refusing to take her. I have been asked to clarify if she had a possible metabolic encephalopathy present on admissionbased on her admitting HPI it is possible, but certainly if it was there and has resolved. Subjective Did not finish bowel prep overnight; nursing reported she felt nauseous. Confused when interviewed this morning, did not remember refusing bowel prep or why, willing to try again. Not lucid enough to indicate awareness of today's plan, but did deny any pain or discomfort and stated her only complaint was feeling tired. Review of Systems Review of Systems: As per HPI. Physical Exam Physical Exam: Gen: NAD, WD/WN, somewhat confused but answers questions HEENT: NCAT, PERRL, MMM CV: RRR, no m/r/g, S1/S2 normal, cap refill < 3 Resp: CTAB, symmetrical chest rise, breathing non-labored Abd: Soft, NT/ND, +BS, no HSM MSK: Full ROM, normal str, no gross deformities Skin: Warm, dry, pink, no rash noted Neuro: Not fully oriented, CN II-XII grossly intact, moves all extremities Results & Data Results & Data Vital Signs (Past 12 Hours) Vital Signs Temp Pulse Resp BP Pulse Ox O2 Del Method 06/09/24 07:00 36.6 C 61 16 101/61 95 Room Air Resident Activity Tracking Resident Involvement: Resident Care Provided Care Provided: Adult Hospital Medicine
--- NOTE | 2024-06-09 13:55 | Anesthesiology Consultation ---
Date of Service June 09, 2024 Assessment & Plan (1) Encounter for pre-operative examination: Chart Review Chart Review: Acceptable Risk for Surgery and Patient NOT seen in Pre Admission Testing Consults Requested none History Surgery Operation Date: 06/09/24 17:10 Proposed Procedures p Colonoscopy [place] - Mukul Luther MD Height/Weight Height: 5 ft Weight: 88.1 kg Allergies Allergy/AdvReac Type Severity Reaction Status Date / Time Sulfa (Sulfonamide Allergy Intermediate ITCHING, Verified 06/07/24 09:57 Antibiotics) BURNING aspirin AdvReac Unknown TO AVOID Verified 06/07/24 09:57 -HX BRAIN TUMOR NOT TO TAKE Medications Home Medications Medication Instructions Recorded Confirmed Last Taken acetaminophen 325 mg tablet 650 mg PO Q6 PRN Fever Or Pain 01/19/23 06/07/24 Unknown (Tylenol) melatonin 3 mg tablet 3 mg PO HS #30 tabs 01/24/23 06/07/24 01/05/24 atorvastatin 40 mg tablet 0 mg PO HS 01/06/24 06/07/24 01/05/24 clotrimazole-betamethasone 1 1 applic topical BID PRN Skin 01/06/24 06/07/24 Unknown %-0.05 % topical cream Irritation cyanocobalamin (vitamin B-12) 500 1,000 mcg PO QDL 01/06/24 06/07/24 01/06/24 mcg tablet thiamine HCl (vitamin B1) 100 mg 200 mg PO BIDM 01/06/24 06/07/24 01/06/24 12:00 tablet divalproex 500 mg tablet,delayed 500 mg PO BID #180 tabs 02/05/24 06/07/24 Unknown release levothyroxine 50 mcg tablet 50 mcg PO DAILY #90 tabs 03/30/24 06/07/24 Unknown montelukast 10 mg tablet 0 mg PO DAILY 06/07/24 06/07/24 Unknown (Singulair) omeprazole 20 mg capsule,delayed 0 mg PO DAILY 06/07/24 06/07/24 Unknown release potassium chloride 20 mEq 20 meq PO DAILY 06/07/24 06/07/24 Unknown tablet,extended release Active Medications Generic Name Dose Route Start Last Admin Trade Name Freq PRN Reason Stop Dose Admin Atorvastatin Calcium 40 mg 06/07/24 21:00 06/08/24 20:50 Atorvastatin 40 Mg Tab PO 07/07/24 20:59 40 mg HS CHICHI Administration Cyanocobalamin 1,000 mcg 06/08/24 09:00 06/08/24 09:04 Cyanocobalamin (B-12) 500 Mcg Tablet PO 07/08/24 08:59 1,000 mcg QDL CHICHI Administration Divalproex Sodium 500 mg 06/07/24 14:45 06/09/24 10:03 Divalproex Delay Release 500 Mg Tab PO 07/07/24 14:44 500 mg BID CHICHI Administration Insulin Aspart 0 units 06/09/24 06:00 06/09/24 13:14 Insulin Aspart Per Unit Charge SC 07/09/24 05:59 Not Given Q6H CHICHI Levothyroxine Sodium 50 mcg 06/08/24 09:00 06/08/24 09:04 Levothyroxine Sodium 50 Mcg Tablet PO 07/08/24 08:59 50 mcg DAILY CHICHI Administration Melatonin 3 mg 06/07/24 21:00 06/08/24 20:50 Melatonin 3 Mg Tab PO 07/07/24 20:59 3 mg HS CHICHI Administration Montelukast Sodium 10 mg 06/08/24 09:00 06/08/24 09:04 Montelukast Sodium 10 Mg Tablet PO 07/08/24 08:59 10 mg DAILY CHICHI Administration Pantoprazole Sodium 40 mg 06/08/24 09:00 06/08/24 09:04 Pantoprazole 40 Mg Tab PO 07/08/24 08:59 40 mg DAILY CHICHI Administration Polyethylene Glycol/Electrolytes 16 dose 06/08/24 16:00 06/08/24 16:26 Lavage Solution 4000ml PO 07/08/24 15:59 16 dose TODAY@1600 CHICHI Administration Potassium Chloride 20 meq 06/08/24 09:00 06/08/24 09:03 Potassium Chloride Crtab 20 Meq Tabcr PO 07/08/24 08:59 20 meq DAILY CHICHI Administration Thiamine HCl 200 mg 06/07/24 17:00 06/08/24 17:10 Thiamine Hcl 100 Mg Tab PO 07/07/24 16:59 200 mg BIDM CHICHI Administration Past Medical History Medical History (Updated 06/09/24 @ 13:54 by Bc Mckeon MD) Weakness Generalized weakness Diarrhea Ambulatory dysfunction Esophageal reflux Seizure disorder Hypomagnesemia Vitamin D deficiency History of CVA (cerebrovascular accident) lacunar infarct 09/2020>STILL HAS NUMBNESS IN RT HAND AND RT SIDE OF FACE Multiple pulmonary nodules stable on imaging - no further workup required Hx of brain cancer Right temporal glioma, s/p surgery, 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 Past Family History Family History Grandmother Family history of diabetes mellitus Father Myocardial infarction Other No significant family history Denies family history of Ovarian cancer Prostate cancer Breast cancer Colorectal cancer Past Surgical History Surgical History History of cataract surgery right Hx of colonoscopy Hx of tubal ligation Hx of section Hx of brain surgery 2000-[facility] Social History Smoking Status: Never smoker Do You Dip or Chew Tobacco: Yes (on occassion) Hx Alcohol Use: No Hx Substance Use: No substance use type: does not use Physical Exam Vital Signs Last Vital Signs Temp 36.5 C 06/09/24 13:50 Pulse 64 06/09/24 13:50 Resp 20 06/09/24 13:50 BP 119/56 L 06/09/24 13:50 Pulse Ox 96 06/09/24 13:50 O2 Del Method Room Air 06/09/24 13:50 O2 Flow Rate 0 06/07/24 12:00 Testing Laboratory Results 06/08/24 05:47 06/08/24 05:47 Hemoglobin A1c 6.2 % (4.5-5.6) H 06/08/24 05:47 Urine Color Dark Yellow 06/07/24 08:02 Urine Appearance Clear (Clear) 06/07/24 08:02 Urine pH 7.5 (4.5-7.5) 06/07/24 08:02 Ur Specific [place] 1.029 (1.000-1.030) 06/07/24 08:02 Urine Protein Trace (Negative) H 06/07/24 08:02 Urine Glucose (UA) Negative (Negative) 06/07/24 08:02 Urine Ketones Trace (Negative) H 06/07/24 08:02 Urine Nitrite Negative (Negative) 06/07/24 08:02 Ur Leukocyte Esterase Negative (Negative) 06/07/24 08:02 Urine WBC (Auto) 0-5 /hpf (0-5) 06/07/24 08:02 Urine RBC (Auto) 0-2 /hpf (0-2) 06/07/24 08:02 U Hyaline Cast (Auto) 3-5 /lpf (0-2) H 06/07/24 08:02 U Epithel Cells (Auto) 0-2 /hpf (0-2) 06/07/24 08:02 Urine Bacteria (Auto) None Seen (None Seen) 06/07/24 08:02 06/09/24 06/09/24 11:44 06:15 POC Glucose 126 H 108 H Electrocardiogram Date: 01/20/23 DICTATED BY: Julio César Salazar MD Test Reason : Blood Pressure : / mmHG Vent. Rate : 106 BPM Atrial Rate : 106 BPM P-R Int : 164 ms QRS Dur : 072 ms QT Int : 344 ms P-R-T Axes : 068 036 059 degrees QTc Int : 456 ms Sinus tachycardia Otherwise normal ECG When compared with ECG of 02-JAN-2023 18:32, No significant change was found Confirmed by Julio César Salazar ([id number]) on 01/20/2023 3:43:27 PM Chest X-Ray Date: 06/07/24 XR chest 1V portable CLINICAL HISTORY: weak COMPARISON STUDY: Chest radiograph and chest CT January 20, 2023. FINDINGS: Lung volumes are normal. Lungs are clear. There is no pneumothorax or pleural effusion. The heart is mildly enlarged. Mediastinal contours are normal. There is no evidence for pulmonary edema. IMPRESSION: No acute cardiopulmonary findings. Other Testing 06/07/24: CT head/brain wo con CLINICAL HISTORY: ams. TECHNIQUE: Multiple axial CT images of the head were obtained without contrast. A dose lowering technique was utilized adhering to the principles of ALARA. CT DOSE: 624 COMPARISON: 01/20/2023 FINDINGS: Stable encephalomalacia anterior right temporal lobe. No intracranial hemorrhage seen. No mass effect, midline shift, or hydrocephalus. Stable pontine calcifications. Stable mild chronic small vessel ischemic changes. Visualized paranasal sinuses are clear. There are multiple opacified right mastoid air cells, stable. Stable prior right craniotomy. No acute skull fracture seen. IMPRESSION: No acute findings.
[2024-06-09] MEDS ORDERED: CHOLESTYRAMINE LIGHT 4 GM PKT PO PRN (14:42)
--- NOTE | 2024-06-09 14:45 | GI REPORT ---
[facility] Patient: JIM MAGAÑA : 1960 Sex at : Female Age: 64 Years Procedure: Colonoscopy Date: 06/09/2024 Attending Physician: Mukul Luther MD Referring MD: Referred Self Indications: - Chronic diarrhea - Abnormal CT of the GI tract Medications: - Monitored Anesthesia Care Complications: - No immediate complications. Estimated Blood Loss: - Estimated blood loss: None. - Estimated blood loss was minimal. Procedure: - Prior to the procedure, a History and Physical was performed, and patient medications and allergies were reviewed. The patient's tolerance of previous anesthesia was also reviewed. The risks and benefits of the procedure and the sedation options and risks were discussed with the patient. All questions were answered, and informed consent was obtained. Prior Anticoagulants: The patient has taken no anticoagulant or antiplatelet agents. ASA Grade Assessment: III - A patient with severe systemic disease. After reviewing the risks and benefits, the patient was deemed in satisfactory condition to undergo the procedure. - The pediatric colonoscope was introduced through the anus and advanced to the terminal ileum, with identification of the appendiceal orifice and ileocecal valve. - The colonoscopy was performed without difficulty. - The patient tolerated the procedure well. - The quality of the bowel preparation was adequate. - The terminal ileum, ileocecal valve, appendiceal orifice, and rectum were photographed. Findings: - The terminal ileum appeared normal. - The exam was otherwise without abnormality on direct and retroflexion views. - Non-bleeding hemorrhoids were found during retroflexion. The hemorrhoids were small. - Biopsies for histology were taken with a cold forceps from the entire colon for evaluation of microscopic colitis. Biopsies for histology were taken with a cold forceps from the entire colon for evaluation of microscopic colitis. Estimated blood loss was minimal. - An area of mildly congested mucosa was found in the rectum. Biopsies were taken with a cold forceps for histology. Impression: - The examined portion of the ileum was normal. - The examination was otherwise normal on direct and retroflexion views. - Non-bleeding hemorrhoids. - Biopsies were taken with a cold forceps from the entire colon for evaluation of microscopic colitis. - Biopsies were taken with a cold forceps from the entire colon for evaluation of microscopic colitis. - Congested mucosa in the rectum. Biopsied. Recommendation: - Discharge patient to home (ambulatory). - Resume previous diet. - Continue present medications. - Repeat colonoscopy date to be determined after pending pathology results are reviewed for surveillance based on pathology results. - Return to referring physician as previously scheduled. - Patient has a contact number available for emergencies. The signs and symptoms of potential delayed complications were discussed with the patient. Return to normal activities tomorrow. Written discharge instructions were provided to the patient. - Start lactose free diet today. fup biopsies for microscopic colitis. NO IBD noted. Use prn questran 4 gm bid Procedure Code(s): - 32462, Colonoscopy, flexible; with biopsy, single or multiple Diagnosis Code(s): - K52.9, Noninfective gastroenteritis and colitis, unspecified - R93.3, Abnormal findings on diagnostic imaging of other parts of digestive tract - K62.89, Other specified diseases of anus and rectum - K64.9, Unspecified hemorrhoids CPT(R) - 2023 copyright [employer]. All Rights Reserved. The CPT codes, CCI edits and ICD codes generated are intended as suggestions and were generated based on input data. These codes are preliminary and upon proof inspector review may be revised to meet current compliance and payer requirements. The provider is responsible for the final determination of appropriate codes, and modifiers. Mukul Luther MD This document has been electronically signed. Note Initiated:06/09/2024 Note Completed:06/09/2024 2:44 PM [id number]
--- NOTE | 2024-06-09 14:59 | Anesthesiology Progress Note ---
Date of Service June 09, 2024 Anesthesia Post Procedure Vital Signs Vital Signs: Temp Pulse Resp BP Pulse Ox O2 Del Method 06/09/24 14:44 63 16 85/70 L 96 Room Air 06/09/24 13:50 36.5 C 64 20 119/56 L 96 Room Air 06/09/24 07:00 36.6 C 61 16 101/61 95 Room Air 06/08/24 21:50 Room Air 06/08/24 20:28 36.4 C L 63 16 116/70 96 Room Air Pain Intensity Bilateral Abdomen: Pain Intensity: 2 Transfer of Care Handoff Completed per policy Notes Mental Status: alert / awake / arousable and participated in evaluation Patient Amnestic to Procedure: Yes Nausea / Vomiting: adequately controlled Pain: adequately controlled Airway Patency, RR, SpO2: stable & adequate BP & HR: stable & adequate Hydration State: stable & adequate Anesthetic Complications: no major complications apparent and Pt Satisfied with anesthetic care
[2024-06-09] MEDS: PROPOFOL IV EMULSION 10 MG/ML 20 ML VIAL IV ONE ×2 (16:53→16:54)
[2024-06-09] MEDS: LIDOCAINE 2% 2 ML VIAL/AMP(20MG/ML) INFIL ONE ×2 (16:53)
--- NOTE | 2024-06-09 17:49 | Billing Data ---
Date of Service June 09, 2024 Coding Level of Care Code 51205 SUB INP/OBS CARE
[2024-06-09] MEDS: INSULIN ASPART PER UNIT CHARGE SC ONE (18:08)
[2024-06-10 00:56] LABS: Appearance Urine Clear (Clear); Bacteria Urine Automated None Seen (None Seen); Bilirubin Urine Negative (Negative); Blood Urine 2+ (Negative); Cast Urine Automated 0-2 /lpf (0-2); Color Urine Yellow; Epithelial Cell Urine Auto 0-2 /hpf (0-2); Glucose Urine UA Negative (Negative); Ketones Urine Negative (Negative); Leukocyte Esterase Urine 2+ (Negative); Nitrite Urine Negative (Negative); Protein Urine Negative (Negative); RBC Urine Automated 0-2 /hpf (0-2); Specific Gravity Urine 1.004 (1.000-1.030); Urobilinogen Urine Negative (Negative); WBC Urine Automated >50 /hpf (0-5); pH Urine 7.5 (4.5-7.5)
--- NOTE | 2024-06-10 04:06 | Communication Note ---
Date of Service: June 10, 2024 Notified by nursing that patient had dysuria and frequency. UA was obtained: +WBC, leukocyte esterase and urine blood, no RBC. Urine culture sent. Patient started on IV Ceftriaxone.
[2024-06-10] MEDS: cefTRIAXone SODIUM 2,000 MG/50 ML BAG IV SCH (04:12)
--- NOTE | 2024-06-10 06:34 | Discharge Summary ---
Date of Service June 10, 2024 Admission HPI Per Admitting Provider Ashley is a 64-year-old female with PMH of T2DM, seizure disorder, recurrent herpes labialis, hypothyroidism, HLD, GERD, and chronic sinusitis. She presented on 06/07 for ambulatory dysfunction and generalized weakness. Patient is reportedly confused at baseline, and is a poor historian at this time. No family at bedside. Patient reports that she fell this morning when she went to sit on her commode. Her legs did not give out on her, but she went to sit back on the commode and missed. She denies head strike or LOC. She does report she was feeling lightheaded prior to the fall. No blood thinner use. Patient lives with her , and reports that her heard her fall, but she cannot get up on her own or with her 's help, and so EMS was called. Patient denies having any pain anywhere. She does have a history of falls, and ambulates with a walker/cane at baseline. Additionally, while the patient denies fecal incontinence/diarrhea, it was reported that she has had diarrhea and weakness over the past 2 days. EMS also reported that her abdomen was tender to palpation on arrival. Patient does not believe she took her regular morning medicine today. Her son helps to manage her medicine at home by sitting up on the counter. She denies any recent change in medications. She denies any recent change in diet. No sick contacts to her knowledge. She denies smoking, tobacco use, or recent alcohol use. Patient is hypotensive at 97/61 at time admission; vitals otherwise stable. ED course: NSS 1000 mL IV ROS: Patient endorses ambulatory dysfunction, cold intolerance, lightheadedness with movements, and dry cough. Patient denies fever, chills, night-sweats, headache, chest pain, SOB, pleuritic CP, abdominal pain, N/V/D, burning with urination, blood in the urine/stool, melena, saddle anesthesia, or numbness/tingling in the arms or legs. Note: Nursing staff reported an episode of fecal incontinence while in the ED. Spoke on the phone to the patient's son (Fredo), and provided update regarding labs/imaging/admission status. Son reports that his father called him around 5 AM this morning after the patient fell while trying to stand on her commode. Son drove over, and helped lift her up from the bathroom floor. While he was holding her, she began shaking and went "limp". Son also reports that she had an episode of fecal incontinence when EMS arrived. No blood in her stool to son's knowledge. Son reports that while she does have some confusion at baseline, this was an acute change in cognitive baseline. Normally she messes up days of the week, but would be oriented to month of the year. Son reports she has not been complaining of diarrhea this past week. Son reports that there is no paperwork to the effect of medical proxy, but reports that both he and his father would be medical proxy is an emergency situation. Admission Exam Per Admitting Provider General: no acute distress; pleasant affect; non-toxic appearing; well- nourished; cooperative HEENT: normocephalic, atraumatic; no scleral icterus; PERRLA w/ EOMs intact; vision and hearing grossly intact Neck: supple; no lymphadenopathy; trachea midline Skin: warm, dry without signs of tenting; no cyanosis; intertrigo noted underneath the breast bilaterally and abdominal pannus CV: chest wall NTP; RRR; S1/S2 normal; no murmurs/rubs/gallops; pulses intact and symmetric at radial, DP, and PT Lungs: no acute respiratory distress; symmetrical chest wall expansion; clear breath sounds across all lung mathis w/o adventitious sounds; no wheezing ABD: Soft, NTP in all 4 quadrant; negative suprapubic tenderness; BS present; no rebound/guarding; no distention MSK: no tics or fasciculations; nonpitting edema noted in the LEs b/l, nonerythematous; 3/5 leg strength bilaterally when lifting leg supine Neuro: Patient is alert and oriented to name, , and location; she is not oriented to month of the year; normal mood and affect; fluent speech, but slow to respond to questioning; no facial droop; no focal deficits appreciated; she reports sensation is intact and symmetric in lower extremities bilaterally as sessed via light touch Principal Diagnosis viral gastroenteritis Discharge Exam Gen: NAD, WD/WN, answers questions appropriately HEENT: NCAT, PERRL, MMM CV: RRR, no m/r/g, S1/S2 normal, cap refill < 3 Resp: CTAB, symmetrical chest rise, breathing non-labored Abd: Soft, NT/ND, +BS, no HSM MSK: Full ROM, normal str, no gross deformities Skin: Warm, dry, pink, no rash noted Neuro: A&Ox3, CN II-XII grossly intact, moves all extremities Discharge Data Allergies Allergy/AdvReac Type Severity Reaction Status Date / Time Sulfa (Sulfonamide Allergy Intermediate ITCHING, Verified 06/07/24 09:57 Antibiotics) BURNING aspirin AdvReac Unknown TO AVOID Verified 06/07/24 09:57 -HX BRAIN TUMOR NOT TO TAKE Consultations 06/07/24 11:01 ED Decision to Admit Stat 06/07/24 18:28 Consult Gastroenterology Routine Procedures Performed Operation Date: 06/09/24 17:10 Actual Procedures p Colonoscopy Biopsy Cytology - Mukul Luther MD Ordered Studies 06/07/24 07:01 CT Abd and Pelvis [CT abd pelvis IV con only] Stat CT head/brain wo con Stat Hospital Course (1) Fecal incontinence: (2) Type 2 diabetes mellitus: (3) Recurrent herpes labialis: (4) Hypothyroidism: (5) Hyperlipidemia: (6) Chronic sinusitis: Plan Ashley is a 64-year-old female with PMH of T2DM, seizure disorder, recurrent herpes labialis, hypothyroidism, HLD, GERD, and chronic sinusitis. She presented on 06/07 for ambulatory dysfunction and generalized weakness. Nursing staff, EMS, and pt's son also report ~2d fecal incontinence. Patient is reportedly confused at baseline & has ongoing ambulatory dysfunction. She was deemed safe for discharge when her symptoms improved and a colonoscopy was completed with benign results. #Ambulatory dysfunction/fall/generalized weakness - PT/OT evaluations appreciated - Fall precautions #Fecal incontinence - Nursing staff, EMS, and son all reported new onset fecal incontinence on 06/07. Patient acknowledges recent "diarrhea" but denies saddle anesthesia, lower back pain, or hip/leg pain. Initial labs w/o leukocytosis. Pt remains afebrile w VSS. CTAP was suggestive of inflammation or proctitis. - Stool infectious panel negative. Gastroenterology consulted; colonoscopy done on 06/09. Exam normal except for small non-bleeding hemorrhoids #Confusion/poor historian - Son (on the phone) reports some confusion at baseline, but reports an acute change since 06/07 AM. Pt was not alert or oriented to month of the year on admission. No strokelike symptoms were appreciated (no slurred speech, facial droop, focal deficits). - Head CT on arrival revealed no acute findings. Vitamin B1 LLN at 8. Vitamin B12 elevated to 1149; folate wnl at 21.74 - Continue supplementation #T2DM - A1c this AM 6.2%, comparable to prev (6.4% on 12/23/2023) - Not managed w any medications at home - Mangaged w SSI in hospital CF 50, CR 15, target BG range 110-140 - BSG ACHS #Seizure disorder - Continue valproate; level this admission within therapeutic range Diet: Regular after procedure Code: DNR/DNI VTE PPx: SCDs Disposition: Home Total Time Total Time Spent Total Time Spent (In Minutes): See attending documentation Discharge Plan Discharge Items Patient Disposition: Home - Self-Care Reason For Visit: NOW ONSET FECAL INCONTINENCE , AMB DYSFUNCTION Discharge Diagnosis: viral gastroenteritis Activity: Per Instructions section Non-emergency contact: Primary Care Provider Call non-emergency contact if: you have any medication questions and your symptoms worsen Follow-up/Referrals: Aleshia Morton MD [Primary Care Provider] - Diet: Regular Addtl Attending Provider Instructions: You were admitted to the hospital after a fall, recent fecal incontinence, and imaging suggestive of proctitis. You were seen by our GI team who performed a colonoscopy on you 06/09. The procedure had no complications, and the only findings were a few small, non-bleeding hemorrhoids. It is likely that you contracted a viral gastroenteritis, and this stomach bug caused the diarrhea, which made you dehydrated and weaker than usual, leading to the fall. With rest and hydration, you should recover well. You were deemed safe for discharge after your symptoms improved and the procedure yielded reassuring results. On the day you were discharged, your blood work did show a decrease in all cell types. Due to similar results on the past, and lack of any associated symptoms, this was not worrying enough to prevent discharge; however, we recommend close outpatient follow-up to recheck these levels. You also had symptoms concerning for a urinary tract infection (UTI), so we started you on antibiotics, and you will need to complete a few more days after discharge. Medications Your medication list has been reviewed and reconciled. An updated list is included with your discharge paperwork; please review this list closely and make note of any changes. We sent a prescription for an antibiotic to your [facility] pharmacy on [address]. Take 100mg cefpodoxime twice a day for 3 days. Your last dose will be Jun 13 evening. Take your medications as instructed; do not skip a dose. Make sure all of your doctors know every medicine you are taking (including [id number] medicines, vitamins, and supplements). Call your PCP before taking any new medicines because some of these may interact with your current medications, or may make your symptoms worse. Follow-up appointments: Make a follow-up appointment with your PCP within the next week. It is very important that you follow up with them shortly after discharge from the hosp ital. We recommend obtaining a CBC within a week of discharge to ensure the cell counts are normal or improving compared to the CBC from today (06/10). Keep all your follow-up appointments as already scheduled. If you cannot make an appointment, notify your provider. Please bring a copy of this discharge summary with you to your next office appointment so that your provider can review it at that time and stay updated on your hospitalization and potential changes in your care. Contact your PCP if your symptoms return or worsen. Call 911 or go to the ER if you experience any of the following: Sudden, severe abdominal pain or nausea/vomiting Severe chest pain, or chest pain that radiates (moves) to your jaw or arm Sudden, severe shortness of breath or difficulty breathing Thank you for allowing us to participate in your care. Pending Studies at Discharge: Yes Studies:: colonoscopy path Stand-Alone Forms: My [facility], Smoking Cessation Medications and DC Order Prescriptions: New cefpodoxime 100 mg tablet 100 mg PO BID Qty: 6 0RF Rx Instructions: must administer with a meal/food Continued levothyroxine 50 mcg tablet 50 mcg PO DAILY Qty: 90 3RF divalproex 500 mg tablet,delayed release (DR/EC) 500 mg PO BID Qty: 180 3RF Rx Instructions: Last filled 01/2024 x90 day supply. Original Directions: 500mg by mouth twice daily acetaminophen [Tylenol] 325 mg Tablet 650 mg PO Q6 PRN (Reason: Fever Or Pain) Rx Instructions: Unable to verify OTC meds at this date/time. melatonin 3 mg tablet 3 mg PO HS Qty: 30 0RF Rx Instructions: Unable to verify OTC meds at this date/time. atorvastatin 40 mg tablet 0 mg PO HS Rx Instructions: Last filled 01/2024 x90 day supply. Original Directions: 40mg by mouth daily thiamine HCl (vitamin B1) 100 mg tablet 200 mg PO BIDM Rx Instructions: Unable to verify OTC meds at this date/time. cyanocobalamin (vitamin B-12) 500 mcg tablet 1,000 mcg PO QDL Rx Instructions: Unable to verify OTC meds at this date/time. clotrimazole-betamethasone 1-0.05 % cream 1 applic topical BID PRN (Reason: Skin Irritation) omeprazole 20 mg capsule,delayed release(DR/EC) 0 mg PO DAILY Rx Instructions: Last filled 01/2024 x90 day supply. Original Directions: 20mg by mouth daily montelukast [Singulair] 10 mg tablet 0 mg PO DAILY Rx Instructions: Last filled 03/2024 x30 day supply. Original Directions: 10mg by mouth once daily potassium chloride 20 mEq tablet extended release 20 meq PO DAILY Rx Instructions: Take 1 tablet by mouth once daily Discharge Orders: Discharge Order (Routine); Ordered 06/10/24 Ordered By: Jesus Alberto Moseley/Other Patient Handouts: Prediabetes, 5 Steps for Eating Healthier Admission Data Admit Date/Time: 06/07/24 11:57 Attending Provider: Herman Steve Admit Provider: Clifton Stovall Primary Care Provider: Aleshia Morton Other Providers: Clifton Stovall; Celia Davis Jr Other Interventions: Discharge Summary Assessment (RN) Last Done: 06/10/24 17:07 Supervising Physician Co-Signing Physician Notes I personally examined the patient and verified all cisneros points of history and exam, discussed case, and agree with decision making with Dr Mcnamara feeling more or less at her baseline. Vitals noted, in general she is awake and alert pleasant no distress. HEENT normocephalic atraumatic mucous membranes moist. Breathing unlabored no accessory muscle use good effort. Skin without rashes pallor or icterus. Neuro without focal deficits. weakness/fecal incontinenceoverall her picture would fit fairly well with a viral gastroenteritis. At the same time appreciate GIs approach to investigate proctitis further Fortunately nothing ominous found on scope. Stable for home,waiting for family to be able to take her. hopefully today. pancytopenia nonspecific and asymptomatic - interestingly counts did the same in jan 2023 and spontaneously resolved. with no sx - safe for home, CBC next week Resident Activity Tracking Resident Involvement: Resident Care Provided Care Provided: [facility]
[2024-06-10 07:29] LABS: BUN Creatinine Ratio 6.3 (10-20); Creatinine Clr Calc Pharmacy 86.7 ml/min; Potassium 3.6 mmol/L (3.5-5.1)
[2024-06-10 07:31] LABS: Hemoglobin 10.3 g/dl (12.0-16.0); Mean Corpuscular Hgb Conc 35.5 g/dL (32.0-36.0); Mean Corpuscular Volume 90.1 fL (80.0-100.0); Mean Platelet Volume 9.9 fL (9.4-12.4); Platelet Count 96 K/uL (130-400); RDW Coefficient of Variation 12.7 % (11.5-14.5); RDW Standard Deviation 41.6 fL (36.4-46.3); Red Blood Count 3.22 M/uL (4.20-5.40); White Blood Count 3.77 K/ul (4.8-10.8)
[2024-06-10 07:42] VITALS: RESP 17
[2024-06-10 15:01] VITALS: BP 111/71; PULSE 61; TEMP 97.9; O2SAT 96
--- NOTE | 2024-06-10 17:16 | Billing Data ---
Date of Service June 10, 2024 Coding Level of Care Code 17649 SUB INP/OBS CARE
--- NOTE | 2024-06-11 08:53 | Billing Data ---
Date of Service June 10, 2024 Coding Level of Care Code 41746 IN/OBS DISCH 30 MIN/LESS Comment disregard 817, 312 instead as pt dc'd
== END 2024-06-10 17:40 | disposition home or self-care (01) | DRG 391 ==
LOC: ED 06:54 → EDINP 11:57 → SUATTDRO 11:57 → 3E 14:13
DX: F17.220 Nicotine dependence, chewing tobacco, uncomplicated; Z79.890 Hormone replacement therapy; E11.9 Type 2 diabetes mellitus without complications; E03.9 Hypothyroidism, unspecified; J32.9 Chronic sinusitis, unspecified; Z79.899 Other long term (current) drug therapy; R26.9 Unspecified abnormalities of gait and mobility; Z98.890 Other specified postprocedural states; Z88.2 Allergy status to sulfonamides; G40.909 Epilepsy, unspecified, not intractable, without status epilepticus; K21.9 Gastro-esophageal reflux disease without esophagitis; Z85.841 Personal history of malignant neoplasm of brain; G93.41 Metabolic encephalopathy; I69.392 Facial weakness following cerebral infarction; A08.4 Viral intestinal infection, unspecified; W18.11XA Fall from or off toilet without subsequent striking against object, initial encounter; I69.331 Monoplegia of upper limb following cerebral infarction affecting right dominant side; Z66 Do not resuscitate; K62.89 Other specified diseases of anus and rectum; E78.5 Hyperlipidemia, unspecified; E53.8 Deficiency of other specified B group vitamins; R15.9 Full incontinence of feces; B00.1 Herpesviral vesicular dermatitis; Z88.6 Allergy status to analgesic agent

== ENCOUNTER 2024-08-21 15:20 | Inpatient (IN) ==
--- NOTE | 2024-08-21 15:34 | Emergency Department Note ---
Impression & Plan Acute encephalopathy, Acute UTI (urinary tract infection), Generalized weakness ED Provider Note HISTORY OF PRESENT ILLNESS: Patient is a 64-year-old female presenting with confusion and weakness. Patient presents from home. Son had called 911 secondary to the patient being too weak to get up and out of bed today. She reportedly has had progressively worsening confusion over the last few days. Yesterday she was very weak and slid out of bed but they were able to help her up into bed. However, today she is unable to get up out of bed on her own secondary to weakness. No reported fevers at home. She has been inconsistent in taking her medications. Patient denies any complaints on arrival to the ER. She is unsure why she is here. She believes she is at [facility]. ROS: as above PHYSICAL EXAM: Constitutional: Patient appears in no acute distress. HENT: Head: Normocephalic and atraumatic. Eyes: EOMI, PERRL Mouth/Throat: Mucous membranes moist. Neck: Trachea midline. Neck supple. Cardiovascular: RRR, No murmurs, rubs or gallops. Intact distal pulses. Pulmonary/Chest: No respiratory distress. Breath sounds clear and equal bilaterally. No wheezes or rales. Abdominal: Abdomen soft, no tenderness, rebound or guarding. Musculoskeletal: No edema, tenderness or deformity noted. Skin: Warm and dry. No rash, erythema, pallor or cyanosis Neurological: Alert to self. CN II-XII grossly intact, moving all extremities equally and fully. MDM: - Vitals signs stable - History obtained via EMS, given patient's confusion. History as above. - Chronic conditions affecting care: HLD; DM-2; hypothyroidism - Differential diagnoses include, but are not limited to: CVA; intracranial hemorrhage; ACS; pneumonia; UTI; viral syndrome; electrolyte abnormality - Order placed for continuous cardiac monitoring. At this time, monitor showed rate of 75 bpm with normal sinus rhythm, per my interpretation. - External medical records reviewed. Discharge summary 06/10/2024 was reviewed. Patient was admitted that time for viral gastroenteritis. - EKG image interpreted by myself showed normal sinus rhythm. Rate 76 bpm. QT 384. No acute ischemic changes. However, noted to have some significant artifact at baseline, most notably in lead V5. - Laboratory workup interpreted by myself showed normal WBC; elevated INR (1.2); stable electrolytes; normal troponin; normal CK; normal lactate; normal procalcitonin; normal TSH - UA obtained via straight cath showed evidence of infection. Patient given 2 g IV Rocephin. - Viral respiratory panel negative - CT head wo contrast negative for acute intracranial pathology - CXR image reviewed by myself negative for pneumonia, per my interpretation. - Discussion was had with trimming caser about patient's case and need for admission - Hospitalist consulted for admission - [facility] ASSESSMENT AND PLAN: Diagnosis: acute encephalopathy; acute UTI; generalized weakness Plan: admit Past Med/Surg History Problem List (Updated 08/21/24 @ 17:35 by Kimberli Ham MD) Generalized weakness (Acute) Acute UTI (urinary tract infection) (Acute) Acute encephalopathy (Acute) Type 2 diabetes mellitus (Chronic) Hypothyroidism (Chronic) Hyperlipidemia (Chronic) B12 deficiency (Chronic) Chronic sinusitis (Chronic) Allergic rhinitis (Chronic) Medical History (Updated 08/21/24 @ 17:35 by Kimberli Ham MD) Acute hyponatremia Acute confusion Fecal incontinence Recurrent herpes labialis Weakness Generalized weakness Diarrhea Ambulatory dysfunction Esophageal reflux Seizure disorder Hypomagnesemia Vitamin D deficiency History of CVA (cerebrovascular accident) lacunar infarct 09/2020>STILL HAS NUMBNESS IN RT HAND AND RT SIDE OF FACE Multiple pulmonary nodules stable on imaging - no further workup required Hx of brain cancer Right temporal glioma, s/p surgery, 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 Surgical History History of cataract surgery right Hx of colonoscopy Hx of tubal ligation Hx of section Hx of brain surgery 2000-[facility] Family History Grandmother Family history of diabetes mellitus Father Myocardial infarction Other No significant family history Denies family history of Ovarian cancer Prostate cancer Breast cancer Colorectal cancer Social History (Updated 04/21/24 @ 08:39 by Traci Roth LPN) Smoking Status: Current every day smoker Tobacco Type: Smokeless Tobacco (Dip or Chew) Second Hand Exposure: No; Do You Dip or Chew Tobacco: Yes (on occassion); Hx Alcohol Use: No Hx Substance Use: No Preferred Language: Syriac Communication Ability: Effective Communication Ability Comment: TROUBLE HEARING OUT OF RIGHT SIDE Tube Mill Operator Required: No Beliefs That Will Affect Care: None marital status: Current Living Situation: Spouse current occupational status: employed 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 Childhood Exposure to Second-Hand Smoke: Yes Diet: regular caffeine: Yes (diet soda) Dental Care, Regularly: No Physical Activity Frequency: Does not Exercise Seatbelt Use: always Sunscreen Use: Yes Assistive Devices: Cane, Stair Lift and Walker Allergies Allergies Allergy/AdvReac Type Severity Reaction Status Date / Time Sulfa (Sulfonamide Allergy Intermediate ITCHING, Verified 06/07/24 09:57 Antibiotics) BURNING aspirin AdvReac Unknown TO AVOID Verified 06/07/24 09:57 -HX BRAIN TUMOR NOT TO TAKE Home Meds Home Medications Medication Instructions Recorded Confirmed acetaminophen 325 mg tablet 650 mg PO Q6 PRN Fever Or Pain 01/19/23 08/21/24 (Tylenol) clotrimazole-betamethasone 1 1 applic topical BID PRN Skin 01/06/24 08/21/24 %-0.05 % topical cream Irritation cyanocobalamin (vitamin B-12) 500 1,000 mcg PO QDL 01/06/24 08/21/24 mcg tablet thiamine HCl (vitamin B1) 100 mg 200 mg PO BIDM 01/06/24 08/21/24 tablet montelukast 10 mg tablet 0 mg PO DAILY 06/07/24 08/21/24 (Singulair) omeprazole 20 mg capsule,delayed 0 mg PO DAILY 06/07/24 08/21/24 release Previous Rx's Medication Instructions Recorded melatonin 3 mg tablet 3 mg PO HS #30 tabs 01/24/23 divalproex 500 mg tablet,delayed 500 mg PO BID #180 tabs 02/05/24 release levothyroxine 50 mcg tablet 50 mcg PO DAILY #90 tabs 03/30/24 atorvastatin 40 mg tablet See Rx Instructions .Route 08/08/24 .COMPLEX #90 tabs potassium chloride 20 mEq See Rx Instructions .Route 08/08/24 tablet,extended release .COMPLEX #90 tabs Results & Data (ED) Vital Signs Vital Signs - 24 hr 08/21/24 15:46 08/21/24 16:04 Temperature 36.6 C Temperature Source Oral Pulse Rate 76 74 Respiratory Rate 18 Blood Pressure 104/70 Blood Pressure Mean 81 Pulse Oximetry 97 Oxygen Delivery Method Room Air Sepsis Recent Fever Within 48 Hours No Sepsis New/Unexplained Change in Mental Status Yes Sepsis Action Taken by Nursing No Action Required Laboratory Data 08/21/24 15:36 08/21/24 15:36 Lab Results 08/21/24 08/21/24 08/21/24 Range/Units 15:25 15:36 15:48 WBC 7.27 (4.8-10.8) K/ul RBC 4.16 L (4.20-5.40) M/uL Hgb 13.1 (12.0-16.0) g/dl Hct 38.6 (37.0-47.0) % MCV 92.8 (80.0-100.0) fL MCH 31.5 (25.0-34.0) pg MCHC 33.9 (32.0-36.0) g/dL RDW Std Deviation 43.9 (36.4-46.3) fL RDW Coeff of Juliet 12.9 (11.5-14.5) % Plt Count 82 L (130-400) K/uL MPV 9.4 (9.4-12.4) fL Immature Gran % (Auto) 0.3 % Neut % (Auto) 72.8 % Lymph % (Auto) 13.8 % [place] % (Auto) 12.8 % Eos % (Auto) 0.0 % Baso % (Auto) 0.3 % Neut # (Auto) 5.30 (1.40-6.50) K/uL Lymph # (Auto) 1.00 L (1.20-3.40) K/uL [place] # (Auto) 0.93 H (0.11-0.59) K/uL Eos # (Auto) 0.00 (0.00-0.50) K/uL Baso # (Auto) 0.02 (0.00-0.20) K/uL Immature Gran # (Auto) 0.02 (0.01-0.20) K/uL PT 13.0 H (9.0-12.0) Seconds INR 1.2 H (0.9-1.1) Sodium 137 (136-145) mmol/L Potassium 4.6 (3.5-5.1) mmol/L Chloride 101 (98-107) mmol/L Carbon Dioxide 31 (21-32) mmol/L Anion Gap 5 (3-11) BUN 19 (6-23) mg/dl Creatinine 0.94 (0.6-1.2) mg/dl Est Cr Clr Drug Dosing 55.9 ml/min eGFR 66.92 BUN/Creatinine Ratio 20.2 H (10-20) Glucose 136 H (70-99(Fasting)) mg/dl POC Glucose 155 H (70-99) mg/dl Lactate 1.8 (0.4-2.0) mmol/L Calcium 10.0 (8.6-10.3) mg/dl Magnesium 1.9 (1.7-2.4) mg/dl Total Bilirubin 0.9 (0.2-1.0) mg/dl AST 15 (13-39) U/L ALT 12 (7-52) U/L Alkaline Phosphatase 49 (34-104) U/L Total Creatine Kinase 35 (26-192) U/L Troponin I High Sens < 2.3 (0-14) pg/ml Total Protein 7.3 (6.0-8.3) gm/dl Albumin 4.0 (3.4-5.0) gm/dl Globulin 3.3 (2.5-4.0) gm/dl Albumin/Globulin Ratio 1.2 (0.9-2) Procalcitonin 0.03 (0-0.5) ng/ml TSH 1.898 (0.300-4.500) uIu/ml Urine Color [place] Urine Appearance Clear (Clear) Urine pH 5.5 (4.5-7.5) Ur Specific [place] 1.036 H (1.000-1.030) Urine Protein 2+ H (Negative) Urine Glucose (UA) Trace H (Negative) Urine Ketones 1+ H (Negative) Urine Blood Negative (Negative) Urine Nitrite Positive A (Negative) Urine Bilirubin 2+ H (Negative) Urine Urobilinogen Negative (Negative) Ur Leukocyte Esterase 1+ H (Negative) Urine WBC (Auto) 11-20 H (0-5) /hpf Urine RBC (Auto) 0-2 (0-2) /hpf U Hyaline Cast (Auto) 3-5 H (0-2) /lpf U Epithel Cells (Auto) 0-2 (0-2) /hpf Urine Bacteria (Auto) None Seen (None Seen) Urine Mucus Present A (None Prsent) Adenovirus (PCR) Not Detected (NotDetected) B. pertussis DNA (PCR) Not Detected (NotDetected) B.parapertussis DNA PCR Not Detected (NotDetected) C. pneumoniae DNA (PCR) Not Detected (NotDetected) Coronavirus OC43 (PCR) Not Detected (NotDetected) Coronavirus HKU1 (PCR) Not Detected (NotDetected) Coronavirus 229E (PCR) Not Detected (NotDetected) SARS-CoV-2 (PCR) Not Detected (NotDetected) Coronavirus NL63 (PCR) Not Detected (NotDetected) Human Metapneumovir PCR Not Detected (NotDetected) Influenza Type A (PCR) Not Detected (NotDetected) Influenza Type B (PCR) Not Detected (NotDetected) M. pneumoniae (PCR) Not Detected (NotDetected) Parainfluenza 1 (PCR) Not Detected (NotDetected) Parainfluenza 2 (PCR) Not Detected (NotDetected) Parainfluenza 3 (PCR) Not Detected (NotDetected) Parainfluenza 4 (PCR) Not Detected (NotDetected) RSV (PCR) Not Detected (NotDetected) Entero/Rhino (PCR) Not Detected (NotDetected) Administered Medications Discontinued Medications Ceftriaxone Sodium (Rocephin) 2,000 mg in 50 mls @ 100 mls/hr IV NOW STA Stop: 08/21/24 16:44 Last Infusion: 08/21/24 17:24 Dose: Infused Documented By: Admin: 08/21/24 16:27 Dose: 100 mls/hr Documented By: NRB Imaging Data Radiologist's Impression: Chest X-Ray 08/21/24 15:30 EXAM: XR chest 1V portable CLINICAL HISTORY: Confusion. TECHNIQUE: X-ray images of the chest were obtained in AP projections. COMPARISON: 06/07/2024 Xray. FINDINGS: Pulmonary Parenchyma: Bilateral increase in bronchovascular markings is noted. No evidence of consolidation, collapse, or focal opacities. No pulmonary nodules identified. Relatively obscured left CP angle Heart and Mediastinum: Borderline cardiomegaly. No mediastinal widening or masses. Bilateral bulky tammy Bony Thorax: Bony thorax shows degnerative changes Soft Tissues: Soft tissues overlying the chest wall are unremarkable. IMPRESSION: Mildly prominent bronchovascular markings (interval unchanged)might be non-specific versus congestive changes; clinical correlation/follow-up is suggested Veiling of the left costophrenic angle may suggest underlying minimal effusion (interval new ) Electronically signed by Natanael Nick 08-21-2024 5:[address] 08/21/24 15:31 EXAM: CT head without contrast. History: Confusion. Weakness. Comparison: 08 January 2023. Technique: Using multidetector thin collimation helical acquisition technique, axial, coronal and sagittal CT images from the skull base to the vertex were obtained without intravenous contrast. Dose reduction techniques were achieved by using automatic exposure control and/or adjustment of mA and/or kV according to patient size and/or use of iterative reconstruction technique. Findings: Metal Stud Framer film demonstrates squamosal temporal craniotomy changes. Brain windows demonstrate stippled calcifications at the level of the pontomedullary junction extending into the right middle cerebral peduncle and base and corticospinal tract of the midbrain. This is unchanged when compared to prior study. Encephalomalacic changes right temporal lobe again noted hypodensity left thalamus. This is unchanged. Ventricles and sulci are otherwise within normal limits. No appreciated hemorrhage, mass or acute large territorial infarct. No midline shift. Basal cisterns are patent. Orbital soft tissues demonstrate no abnormality. Bone windows demonstrate right squamosal temporal craniotomy changes. Findings are stable. Impression: Stable exam dating back to 08 January 2023. No appreciated acute process. Electronically signed by Fredy Funes 08-21-2024 5:22 PM Discharge Plan Visit Data Chief Complaint: Confusion Stated Complaint: AMS, WEAKNESS ED Provider: Kimberli Ham Discharge Problem: Acute encephalopathy, Acute UTI (urinary tract infection), Generalized weakness Forms Stand Alone Forms: My [facility] Prescriptions Prescriptions: No Action levothyroxine 50 mcg tablet 50 mcg PO DAILY Qty: 90 3RF atorvastatin 40 mg tablet See Rx Instructions .ROUTE .COMPLEX Qty: 90 0RF Dose Instruction: Take 1 tablet by mouth once daily Rx Instructions: Take 1 tablet by mouth once daily potassium chloride 20 mEq tablet extended release See Rx Instructions .ROUTE .COMPLEX Qty: 90 0RF Dose Instruction: Take 1 tablet by mouth once daily Rx Instructions: Take 1 tablet by mouth once daily divalproex 500 mg tablet,delayed release (DR/EC) 500 mg PO BID Qty: 180 3RF Rx Instructions: Last filled 01/2024 x90 day supply. Original Directions: 500mg by mouth twice daily acetaminophen [Tylenol] 325 mg Tablet 650 mg PO Q6 PRN (Reason: Fever Or Pain) Rx Instructions: Unable to verify OTC meds at this date/time. melatonin 3 mg tablet 3 mg PO HS Qty: 30 0RF Rx Instructions: Unable to verify OTC meds at this date/time. thiamine HCl (vitamin B1) 100 mg tablet 200 mg PO BIDM Rx Instructions: Unable to verify OTC meds at this date/time. cyanocobalamin (vitamin B-12) 500 mcg tablet 1,000 mcg PO QDL Rx Instructions: Unable to verify OTC meds at this date/time. clotrimazole-betamethasone 1-0.05 % cream 1 applic topical BID PRN (Reason: Skin Irritation) omeprazole 20 mg capsule,delayed release(DR/EC) 0 mg PO DAILY Rx Instructions: Last filled 01/2024 x90 day supply. Original Directions: 20mg by mouth daily montelukast [Singulair] 10 mg tablet 0 mg PO DAILY Rx Instructions: Last filled 03/2024 x30 day supply. Original Directions: 10mg by mouth once daily Referrals Referrals: Aleshia Morton MD [Primary Care Provider] -
[2024-08-21 15:57] LABS: Basophils # (auto) 0.02 K/uL (0.00-0.20); Basophils % (auto) 0.3 %; Hematocrit (blood only) 38.6 % (37.0-47.0); Hemoglobin 13.1 g/dl (12.0-16.0); Immature Granulocytes # (auto) 0.02 K/uL (0.01-0.20); Immature Granulocytes % (auto) 0.3 %; Lymphocytes % (auto) 13.8 %; Mean Corpuscular Hemoglobin 31.5 pg (25.0-34.0); Mean Corpuscular Hgb Conc 33.9 g/dL (32.0-36.0); Mean Corpuscular Volume 92.8 fL (80.0-100.0); Mean Platelet Volume 9.4 fL (9.4-12.4); Monocytes # (auto) 0.93 K/uL (0.11-0.59); Monocytes % (auto) 12.8 %; Neutrophils % (auto) 72.8 %; Platelet Count 82 K/uL (130-400); RDW Coefficient of Variation 12.9 % (11.5-14.5); RDW Standard Deviation 43.9 fL (36.4-46.3); Red Blood Count 4.16 M/uL (4.20-5.40); White Blood Count 7.27 K/ul (4.8-10.8)
[2024-08-21 16:08] LABS: Alanine Aminotransferase 12 U/L (7-52); Albumin Globulin Ratio 1.2 (0.9-2); Alkaline Phosphatase 49 U/L (34-104); Anion Gap 5 (3-11); Aspartate Aminotransferase 15 U/L (13-39); BUN Creatinine Ratio 20.2 (10-20); Bilirubin,Total 0.9 mg/dl (0.2-1.0); Blood Urea Nitrogen 19 mg/dl (6-23); Carbon Dioxide 31 mmol/L (21-32); Chloride 101 mmol/L (98-107); Creatine Kinase 35 U/L (26-192); Creatinine Clr Calc Pharmacy 55.9 ml/min; Globulin 3.3 gm/dl (2.5-4.0); Glucose 136 mg/dl (70-99(Fasting)); Magnesium 1.9 mg/dl (1.7-2.4); Potassium 4.6 mmol/L (3.5-5.1); Sodium 137 mmol/L (136-145); Total Protein 7.3 gm/dl (6.0-8.3)
[2024-08-21 16:10] LABS: Appearance Urine Clear (Clear); Bacteria Urine Automated None Seen (None Seen); Bilirubin Urine 2+ (Negative); Blood Urine Negative (Negative); Color Urine Orange; Epithelial Cell Urine Auto 0-2 /hpf (0-2); Glucose Urine UA Trace (Negative); Ketones Urine 1+ (Negative); Leukocyte Esterase Urine 1+ (Negative); Mucus Urine Present (None Prsent); Nitrite Urine Positive (Negative); Protein Urine 2+ (Negative); RBC Urine Automated 0-2 /hpf (0-2); Specific Gravity Urine 1.036 (1.000-1.030); Urobilinogen Urine Negative (Negative); pH Urine 5.5 (4.5-7.5)
[2024-08-21 16:13] LABS: Troponin I High Sensitivity < 2.3 pg/ml (0-14)
[2024-08-21 16:19] LABS: INR 1.2 (0.9-1.1)
[2024-08-21 16:23] LABS: Thyroid Stimulating Hormone 1.898 uIu/ml (0.300-4.500)
[2024-08-21] MEDS: cefTRIAXone SODIUM 2,000 MG/50 ML BAG IV STA (16:27)
[2024-08-21 16:43] LABS: Adenovirus PCR Not Detected (NotDetected); Bordetella parapertussis PCR Not Detected (NotDetected); Bordetella pertussis PCR Not Detected (NotDetected); Chlamydia pneumoniae PCR Not Detected (NotDetected); Coronavirus 229E PCR Not Detected (NotDetected); Coronavirus CoV-2 (COVID19)PCR Not Detected (NotDetected); Coronavirus HKU1 PCR Not Detected (NotDetected); Coronavirus NL63 PCR Not Detected (NotDetected); Coronavirus OC43PCR Not Detected (NotDetected); Human Metapneumovirus PCR Not Detected (NotDetected); Influenza A PCR Not Detected (NotDetected); Influenza B PCR Not Detected (NotDetected); Mycoplasma pneumoniae PCR Not Detected (NotDetected); Parainfluenza Virus 1 PCR Not Detected (NotDetected); Parainfluenza Virus 2 PCR Not Detected (NotDetected); Parainfluenza Virus 3 PCR Not Detected (NotDetected); Parainfluenza Virus 4 PCR Not Detected (NotDetected); Respiratory Syncytial VirusPCR Not Detected (NotDetected); Rhinovirus/Enterovirus PCR Not Detected (NotDetected)
--- NOTE | 2024-08-21 17:23 | CT Scan Report ---
EXAM: CT head without contrast. History: Confusion. Weakness. Comparison: 08 January 2023. Technique: Using multidetector thin collimation helical acquisition technique, axial, coronal and sagittal CT images from the skull base to the vertex were obtained without intravenous contrast. Dose reduction techniques were achieved by using automatic exposure control and/or adjustment of mA and/or kV according to patient size and/or use of iterative reconstruction technique. Findings: Metal Fitter film demonstrates squamosal temporal craniotomy changes. Brain windows demonstrate stippled calcifications at the level of the pontomedullary junction extending into the right middle cerebral peduncle and base and corticospinal tract of the midbrain. This is unchanged when compared to prior study. Encephalomalacic changes right temporal lobe again noted hypodensity left thalamus. This is unchanged. Ventricles and sulci are otherwise within normal limits. No appreciated hemorrhage, mass or acute large territorial infarct. No midline shift. Basal cisterns are patent. Orbital soft tissues demonstrate no abnormality. Bone windows demonstrate right squamosal temporal craniotomy changes. Findings are stable. Impression: Stable exam dating back to 08 January 2023. No appreciated acute process. Electronically signed by Fredy Funes 08-21-2024 5:22 PM
--- NOTE | 2024-08-21 17:30 | XRay Report ---
EXAM: XR chest 1V portable CLINICAL HISTORY: Confusion. TECHNIQUE: X-ray images of the chest were obtained in AP projections. COMPARISON: 06/07/2024 Xray. FINDINGS: Pulmonary Parenchyma: Bilateral increase in bronchovascular markings is noted. No evidence of consolidation, collapse, or focal opacities. No pulmonary nodules identified. Relatively obscured left CP angle Heart and Mediastinum: Borderline cardiomegaly. No mediastinal widening or masses. Bilateral bulky tammy Bony Thorax: Bony thorax shows degnerative changes Soft Tissues: Soft tissues overlying the chest wall are unremarkable. IMPRESSION: Mildly prominent bronchovascular markings (interval unchanged)might be non-specific versus congestive changes; clinical correlation/follow-up is suggested Veiling of the left costophrenic angle may suggest underlying minimal effusion (interval new ) Electronically signed by Natanael Nick 08-21-2024 5:30 PM
--- NOTE | 2024-08-21 17:57 | History & Physical Report ---
Date of Service August 21, 2024 Assessment & Plan (1) Delirium: (2) Generalized weakness: (3) Acute UTI (urinary tract infection): (4) Type 2 diabetes mellitus: (5) Dehydration: Plan #Delirium/metabolic encephalopathy - her weakness appears to be consistent with a delirium. Her son does worry about some degree of dementia, and given her prior neurologic procedure certainly she would be at risk for dementia at an early age. The last that I had her she was quite lucid by day of discharge, so hopefully he is mostly seeing that she is more prone to delirium then she "should be". As far as root cause of deliriumdehydration seems obvious and evident (mucous membranes dry, s kin dry and OE, urine specific gravity up), urinary tract infection seems possible (son apparently noting foul-smelling urine, cannot really rule out urine symptoms with the patient, foul-smelling urine easily could be from concentration, but certainly a UTI is a common occurrence), and I also wonder some about the environmental change given that her was in the hospital. - Treat underlying causes (see below) PT/OT eval and treat. Follow. Hopefully she will be able to go home at discharge, as occurred the last time #dehydration - history of poor p.o. intake over the last few days, looks dry, urine specific gravity is up - IV fluids (LR at 80 an hour), follow hydration status, follow basic metabolic panel in the morning #possible urinary tract infection - son relates foul-smelling urine, this may simply be due to concentration, cannot rule out with lack of symptoms, follow clinically, ceftriaxone for now #type 2 diabetes - I doubt this will be an issue, she is on no home meds and her A1c is good #thrombocytopenia and mild INR elevation - unclear etiology, follow-up both in the morning, this has been happening on and off at different timesMay need to have assistance from hematologyprobably as an outpatient #DVT prophylaxis - with thrombocytopenia of an uncertain cause, I would hold off on pharmacologic for now. Mechanical seems to be of dubious benefit and possible risk of skin breakdown or falls son would like her to be a full code admit to medical, PT/OT eval and treat, came from home, hopefully will be able to go back home but this will be contingent on her progress. History of Present Illness Chief Complaint: confusion Primary Care Provider: Aleshia Morton MD History is extremely limited from the patientwhenever I am in the room she initially does not wake up, but she then awakens to gentle physical stimulus. She seems quite confused, although she denies pain, denies abdominal pain, denies dysuria, but also her HPI and review of systems I would take at only intermediate/proximal value given her confusion. She is able to express that her is in the hospital. I was able to call her son Fredo who noted that for the last several days she has been getting progressively more confused, and then today she had incontinence (fecal) as well as acting very strangely such as sitting on the floor and not really seeming coherent. He noted that she has been delirious before and therefore had her taken to the hospital for further evaluation. He notes last several days her p.o. intake has been poor. Her apparently was just hospitalized at [facility] and [facility] notes that the patient and her rely on each other, implying that may be part of why she is not doing well as well. Allergies Allergy/AdvReac Type Severity Reaction Status Date / Time Sulfa (Sulfonamide Allergy Intermediate ITCHING, Verified 06/07/24 09:57 Antibiotics) BURNING aspirin AdvReac Unknown TO AVOID Verified 06/07/24 09:57 -HX BRAIN TUMOR NOT TO TAKE Home Medications Medication Instructions Recorded Confirmed Type acetaminophen 325 mg tablet 650 mg PO Q6 PRN Fever Or Pain 01/19/23 08/21/24 History (Tylenol) melatonin 3 mg tablet 3 mg PO HS #30 tabs 01/24/23 08/21/24 Rx clotrimazole-betamethasone 1 1 applic topical BID PRN Skin 01/06/24 08/21/24 History %-0.05 % topical cream Irritation cyanocobalamin (vitamin B-12) 500 1,000 mcg PO QDL 01/06/24 08/21/24 History mcg tablet thiamine HCl (vitamin B1) 100 mg 200 mg PO BIDM 01/06/24 08/21/24 History tablet divalproex 500 mg tablet,delayed 500 mg PO BID #180 tabs 02/05/24 08/21/24 Rx release levothyroxine 50 mcg tablet 50 mcg PO DAILY #90 tabs 03/30/24 08/21/24 Rx montelukast 10 mg tablet 0 mg PO DAILY 06/07/24 08/21/24 History (Singulair) omeprazole 20 mg capsule,delayed 0 mg PO DAILY 06/07/24 08/21/24 History release atorvastatin 40 mg tablet See Rx Instructions .Route 08/08/24 08/21/24 Rx .COMPLEX #90 tabs potassium chloride 20 mEq See Rx Instructions .Route 08/08/24 08/21/24 Rx tablet,extended release .COMPLEX #90 tabs Past Med/Surg History Problem List (Updated 08/21/24 @ 17:59 by Herman Steve DO) Dehydration Delirium Generalized weakness (Acute) Acute UTI (urinary tract infection) (Acute) Acute encephalopathy (Acute) Type 2 diabetes mellitus (Chronic) Hypothyroidism (Chronic) Hyperlipidemia (Chronic) B12 deficiency (Chronic) Chronic sinusitis (Chronic) Allergic rhinitis (Chronic) Medical History Acute hyponatremia Acute confusion Fecal incontinence Recurrent herpes labialis Weakness Generalized weakness Diarrhea Ambulatory dysfunction Esophageal reflux Seizure disorder Hypomagnesemia Vitamin D deficiency History of CVA (cerebrovascular accident) lacunar infarct 09/2020>STILL HAS NUMBNESS IN RT HAND AND RT SIDE OF FACE Multiple pulmonary nodules stable on imaging - no further workup required Hx of brain cancer Right temporal glioma, s/p surgery, 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 Surgical History History of cataract surgery right Hx of colonoscopy Hx of tubal ligation Hx of section Hx of brain surgery 2000-[facility] Family History Grandmother Family history of diabetes mellitus Father Myocardial infarction Other No significant family history Denies family history of Ovarian cancer Prostate cancer Breast cancer Colorectal cancer Social History Smoking Status: Current every day smoker Tobacco Type: Smokeless Tobacco (Dip or Chew) Second Hand Exposure: No; Do You Dip or Chew Tobacco: Yes (on occassion); Hx Alcohol Use: No Hx Substance Use: No Preferred Language: Grenadian Communication Ability: Effective Communication Ability Comment: TROUBLE HEARING OUT OF RIGHT SIDE Transistor Tester Required: No Beliefs That Will Affect Care: None marital status: Current Living Situation: Spouse current occupational status: employed 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 Childhood Exposure to Second-Hand Smoke: Yes Diet: regular caffeine: Yes (diet soda) Dental Care, Regularly: No Physical Activity Frequency: Does not Exercise Seatbelt Use: always Sunscreen Use: Yes Assistive Devices: Cane, Stair Lift and Walker Review of Systems Review of Systems: Unobtainable due to cognitive status Physical Exam Physical Exam: In general she is sleeping fairly soundly but does awaken to gentle physical stimulus. She appears to be in no distress. HEENT normocephalic atraumatic mucous membranes are quite dry. She has right facial neurologic changes which I believe are chronic. Cardio is regular without rubs murmurs or gallops. Lungs are clear to auscultation bilaterally no rales rhonchi or wheezes no accessory muscle use no tachypnea moderate spontaneous effort. Abdomen seems to be soft nondistended may be exceedingly mild epigastric tenderness no suprapubic tenderness no guarding rebound or rigidity. Extremities are without sinus clubbing or edema, skin is quite dry and even slightly doughy. Neuro shows what appear to be chronic changes, which I believe I remember from taking care of her several months ago. No new focal findings. Mental status shows her to be quite confusedby hospital day 2 the last I was taking care of her she was quite lucid. labs and diagnostics noted Results & Data Results & Data Vital Signs (Past 12 Hours) Vital Signs Temp Pulse Pulse Resp BP BP Pulse Ox 08/21/24 17:30 69 18 105/66 98 08/21/24 16:04 74 08/21/24 15:46 97.9 F 76 18 104/70 97 O2 Del Method 08/21/24 17:30 Room Air 08/21/24 16:04 08/21/24 15:46 Room Air Code Status & VTE Plan VTE Prophylaxis Plan VTE Prophylaxis will be ordered: No Reason for no VTE drug order: Contraindicated PG Care Time/CCT Total # of Minutes Spent Total Time Spent with Patient: Total time spent is greater than 50% in coordination of care (as documented) at patient's floor/unit and/or counseling patient: Coding Level of Care Code 69707 INT INP/OBS CARE MIN Diagnoses Delirium R41.0 Generalized weakness R53.1 Acute UTI (urinary tract infection) N39.0 Type 2 diabetes mellitus E11.9 Dehydration E86.0
[2024-08-21] MEDS ORDERED: ALUMINUM/MAGNESIUM SUSP 30 ML UDC PO PRN (20:07)
[2024-08-21] MEDS: LACTATED RINGER'S 1,000 ML IV SCH (21:51)
[2024-08-21] MEDS: DIVALPROEX DELAY RELEASE 500 MG TAB PO SCH (21:53)
[2024-08-21] MEDS: MELATONIN 3 MG TAB PO SCH (21:53)
--- NOTE | 2024-08-22 08:04 | Hospitalist Progress Note ---
Date of Service August 22, 2024 Assessment & Plan (1) Dehydration: (2) Delirium: (3) Acute UTI (urinary tract infection): (4) Type 2 diabetes mellitus: (5) Hypothyroidism: Plan #Delirium/metabolic encephalopathy 2/2 to acute dehydration and UTI - Likely due to acute dehydration and UTI -Poor oral intake. Hypovolemic on exam - Urinalysis reveals Urine specific gravity of 1.036 - Reviewed her medications. Medication side effect unlikely Plan: -Delirium precautions -Encouraged patient to drink plenty water 2 to 3 litre per day #UTI -Her son mentioned patient was having foul smelling urine for some days. Patient denies symptoms -Urine analysis positive for nitrate; leucocyte esterase 1+; 11-20 WBCs per HPF -Urine preliminary culture: no growth of organism; Final culture :pending Plan -Ceftriaxone 2gm q24hr. Plan to switch to Cefpodoxime on discharge #Type 2 diabetes - Has history of type II DM -No home meds -HBa1C(06/01): 6.2 -FB Plan -Will continue to monitor glucose #Thrombocytopenia and mild INR elevation -New Thrombocytopenia since May -Platelet count today: 59 Plan -Follow up with hem/onc on outpatient DVT prophylaxis: Hold off now in setting of Thrombocytopenia Code status: Full Dispo: According to PT/OT recommendation, she needs acute rehab before home Admission and Anticipated Discharge Date Admission Date: August 21, 2024 Supervising Physician Co-Signing Physician Notes Attending attestation Pt seen and examined in concert with Dr. Fowler. In agreement with the documented findings as noted in the resident documentation with any exceptions or additions as noted here. No acute complaint at time of examination, though only oriented to self and place with difficulty with recall and attention beyond a few seconds. On examination, S1/S2 nl RRR no MCG. CTAB. Abd NT/ND BS+ve Delirium, multifactorial w/ metabolic encephalopathy - treat underlying etiol ogy. Environmental modification. PT/OT evaluation pending. UTI - abnormal UA with pending UCx. Continue ceftriaxone and narrow with culture and clinical change Borderline hypotension, chronic - d/c IVF and monitor BMP in AM Thrombocytopenia and elevated INR - trend daily, consider hematology evaluation in outpatient if stable. Agree w/ holding DVT prophylaxis, hopeful return to activity with rapidly correcting delirium. Else see resident documentation as noted. Subjective She was oriented to time , place and person Denied abdominal pain, burning micturition or any symptoms of UTI. She mentioned she fell out of bed but denies any injury. Review of Systems Review of Systems: As per HPI Results & Data Results & Data Vital Signs (Past 12 Hours) Vital Signs Temp Pulse Pulse Resp BP Pulse Ox O2 Del Method 08/22/24 07:41 36.5 C 57 L 18 97/58 L 96 Room Air 08/21/24 21:30 Room Air 08/21/24 21:23 36.4 C L 65 18 117/72 98 Room Air 08/21/24 20:59 63 18 110/66 98 Room Air 08/21/24 20:07 60 18 117/75 96 Room Air
[2024-08-22 08:20] LABS: Basophils # (auto) 0.01 K/uL (0.00-0.20); Basophils % (auto) 0.2 %; Immature Granulocytes # (auto) 0.02 K/uL (0.01-0.20); Immature Granulocytes % (auto) 0.4 %; Lymphocytes # (auto) 0.93 K/uL (1.20-3.40); Lymphocytes % (auto) 20.3 %; Mean Corpuscular Hemoglobin 31.6 pg (25.0-34.0); Mean Corpuscular Hgb Conc 34.4 g/dL (32.0-36.0); Mean Platelet Volume 9.6 fL (9.4-12.4); Monocytes # (auto) 0.62 K/uL (0.11-0.59); Monocytes % (auto) 13.5 %; Neutrophils % (auto) 65.6 %; Platelet Count 59 K/uL (130-400); RDW Coefficient of Variation 12.9 % (11.5-14.5); Red Blood Count 3.48 M/uL (4.20-5.40); White Blood Count 4.58 K/ul (4.8-10.8)
[2024-08-22 08:43] LABS: BUN Creatinine Ratio 22.2 (10-20); Calcium 9.1 mg/dl (8.6-10.3); Creatinine Clr Calc Pharmacy 71.7 ml/min; INR 1.2 (0.9-1.1); Potassium 4.3 mmol/L (3.5-5.1); Prothrombin Time 12.4 Seconds (9.0-12.0)
[2024-08-22] MEDS: PANTOprazole 40 MG TAB PO SCH (09:16)
[2024-08-22] MEDS: POTASSIUM CHLORIDE CRTAB 20 MEQ TABCR PO SCH (09:16)
[2024-08-22] MEDS: MONTELUKAST SODIUM 10 MG TABLET PO SCH (09:16)
[2024-08-22] MEDS: THIAMINE HCL 100 MG TAB PO SCH (09:16)
[2024-08-22] MEDS: LEVOTHYROXINE SODIUM 50 MCG TABLET PO SCH (09:16)
[2024-08-22] MEDS: ATORVASTATIN 40 MG TAB PO SCH (09:16)
--- NOTE | 2024-08-22 11:07 | Electrocardiogram Report ---
Test Reason : Blood Pressure : */* mmHG Vent. Rate : 76 BPM Atrial Rate : 76 BPM P-R Int : 196 ms QRS Dur : 70 ms QT Int : 384 ms P-R-T Axes : 56 9 25 degrees QTcB Int : 432 ms Normal sinus rhythm Possible Inferior infarct , age undetermined Abnormal ECG When compared with ECG of 19-Jan-2023 20:59, Borderline criteria for Inferior infarct are now Present Confirmed by Juan J Saenz ([id number]) on 08/22/2024 11:07:29 AM Referred By: REFERRED SELF Confirmed By: Juan J Saenz
[2024-08-22] MEDS: CYANOCOBALAMIN (B-12) 500 MCG TABLET PO SCH (11:41)
[2024-08-22] MEDS: cefTRIAXone SODIUM 2,000 MG/50 ML BAG IV SCH (17:03)
[2024-08-23 07:12] LABS: Basophils # (auto) 0.01 K/uL (0.00-0.20); Basophils % (auto) 0.3 %; Hematocrit (blood only) 29.8 % (37.0-47.0); Hemoglobin 10.2 g/dl (12.0-16.0); Immature Granulocytes # (auto) 0.01 K/uL (0.01-0.20); Immature Granulocytes % (auto) 0.3 %; Lymphocytes # (auto) 1.21 K/uL (1.20-3.40); Lymphocytes % (auto) 37.2 %; Mean Corpuscular Hemoglobin 31.5 pg (25.0-34.0); Mean Corpuscular Hgb Conc 34.2 g/dL (32.0-36.0); Mean Platelet Volume 9.6 fL (9.4-12.4); Monocytes # (auto) 0.36 K/uL (0.11-0.59); Monocytes % (auto) 11.1 %; Neutrophils # (auto) 1.66 K/uL (1.40-6.50); Neutrophils % (auto) 51.1 %; Platelet Count 62 K/uL (130-400); RDW Coefficient of Variation 12.7 % (11.5-14.5); RDW Standard Deviation 42.5 fL (36.4-46.3); Red Blood Count 3.24 M/uL (4.20-5.40); White Blood Count 3.25 K/ul (4.8-10.8)
[2024-08-23 07:36] LABS: BUN Creatinine Ratio 17.9 (10-20); Potassium 4.1 mmol/L (3.5-5.1)
[2024-08-23 07:38] LABS: Ovalocytes 1+; Platelet Estimate Decreased (Normal); Polychromasia 1+
--- NOTE | 2024-08-23 07:56 | Hospitalist Progress Note ---
Date of Service August 23, 2024 Assessment & Plan (1) Dehydration: (2) Delirium: (3) Acute UTI (urinary tract infection): (4) Type 2 diabetes mellitus: (5) Hypothyroidism: Plan Ashley is a 64 Y O Female with PMH of hypothyroidism, hyperlipidemia, and Type II DM admitted for Delirium. #Delirium/metabolic encephalopathy 2/2 to acute dehydration and UTI - Likely due to acute dehydration and UTI -Poor oral intake. Hypovolemic on exam - Urinalysis reveals Urine specific gravity of 1.036 - Reviewed her medications. Medication side effect unlikely -Evaluated by PT/OT: Has risk of fall. Her spouse is in rehab. PT/OT recommends going to inpatient rehab before going to home Plan: -Delirium precautions -Encouraged patient to drink plenty water 2 to 3 litre per day -Called her son today, he mentioned patient seemed to be ok 2 3 days before coming to hospital. Symptoms started 2 3 days before coming to hospital. Son willing to be POA. According to PT/OT patient needs acute rehab before going to home. CM to coordinate with son for further plan of care #UTI -Her son mentioned patient was having foul smelling urine for some days. Patient denies symptoms -Urine analysis positive for nitrate; leucocyte esterase 1+; 11-20 WBCs per HPF -Urine final culture result reveals no growth of organism Plan -Ceftriaxone 2gm q24hr. Plan to switch to Cefpodoxime on discharge #Type 2 diabetes - Has history of type II DM -No home meds -HBa1C(06/01): 6.2 -FB Plan -Will continue to monitor glucose #Thrombocytopenia and mild INR elevation -New Thrombocytopenia since May -Platelet count today: 59 Plan -Follow up with hem/onc on outpatient DVT prophylaxis: Hold off now in setting of Thrombocytopenia Code status: Full Dispo: According to PT/OT recommendation, she needs acute rehab before home Admission and Anticipated Discharge Date Admission Date: August 21, 2024 Supervising Physician Co-Signing Physician Notes Attending attestation Pt seen and examined in concert with Dr. Fowler. In agreement with the documented findings as noted in the resident documentation with any exceptions or additions as noted here. No acute complaint at time of examination. Oriented to self and place with difficulty with recall and attention beyond a few seconds, but improved from yesterday. On examination, S1/S2 nl RRR no MCG. CTAB. Abd NT/ND BS+ve Delirium, multifactorial w/ metabolic encephalopathy - treat underlying etiology. Environmental modification. PT/OT recs rehab services. Contact son re: baseline mental status and POA status for support in decisionmaking UTI - abnormal UA, UCx NGTD past 48 hr. Discontinue ceftriaxone. Borderline hypotension, chronic - d/c IVF and monitor BMP in AM Thrombocytopenia and elevated INR - trend daily, consider hematology evaluation in outpatient if stable. Agree w/ holding DVT prophylaxis, hopeful return to activity with rapidly correcting delirium. Else see resident documentation as noted. Subjective She was oriented to time , place and person. However seems to be confused. difficulty recalling past events. No clinical improvement or deterioration from yesterday. Denied abdominal pain, burning micturition or any symptoms of UTI. Review of Systems Review of Systems: As per HPI Physical Exam Constitutional: WD/WN, vitals as above well developed; no acute distress Eyes: PERRL, conjunctivae normal, anicteric sclerae ENMT: external ear and nose normal, oropharynx normal Ears: no hearing impairment Neck: trachea midline, no thyromegaly trachea midline Respiratory: normal respiratory effort, lungs clear to auscultation normal respiratory effort and + respiratory distress; no labored breathing and no retractions Auscultation: lungs clear to auscultation bilaterally Cardiovascular: RRR, no murmur, no edema Rate/Rhythm: regular rate and regular rhythm Chest (Breasts): normal inspection/palpation of breasts Chest: normal inspection of chest Results & Data Results & Data Vital Signs (Past 12 Hours) Vital Signs Temp Pulse Resp BP Pulse Ox O2 Del Method 08/23/24 07:51 36.8 C 53 L 17 95/60 L 94 Room Air 08/22/24 21:00 Room Air
[2024-08-23] MEDS: ATORVASTATIN 40 MG TAB PO SCH (09:50)
--- NOTE | 2024-08-24 07:45 | Hospitalist Progress Note ---
Date of Service August 24, 2024 Assessment & Plan (1) Dehydration: (2) Delirium: (3) Acute UTI (urinary tract infection): (4) Type 2 diabetes mellitus: (5) Hypothyroidism: Plan Ashley is a 64 Y O Female with PMH of hypothyroidism, hyperlipidemia, and Type II DM admitted for Delirium. #Delirium/metabolic encephalopathy 2/2 to acute dehydration and UTI - Likely due to acute dehydration and UTI -Poor oral intake. Hypovolemic on exam - Urinalysis reveals Urine specific gravity of 1.036 - Reviewed her medications. Medication side effect unlikely -Evaluated by PT/OT: Has risk of fall. Her spouse is in rehab. PT/OT recommends going to inpatient rehab before going to home Plan: -Delirium precautions -Encouraged patient to drink plenty water 2 to 3 litre per day -Called her son today, he mentioned patient seemed to be ok 2 3 days before coming to hospital. Symptoms started 2 3 days before coming to hospital. Son willing to be POA. According to PT/OT patient needs acute rehab before going to home. CM working on rehab accommodation for her with her #UTI(Resolved) -Her son mentioned patient was having foul smelling urine for some days. Patient denies symptoms -Urine analysis positive for nitrate; leucocyte esterase 1+; 11-20 WBCs per HPF -Urine final culture result reveals no growth of organism Plan -Discontinue Ceftriaxone #Type 2 diabetes - Has history of type II DM -No home meds -HBa1C(06/01): 6.2 -FB Plan -Will continue to monitor glucose #Thrombocytopenia and mild INR elevation -New Thrombocytopenia since May -Platelet count today: 59 Plan -Follow up with hem/onc on outpatient DVT prophylaxis: Hold off now in setting of Thrombocytopenia Code status: Full Dispo: According to PT/OT recommendation, she needs acute rehab before home Admission and Anticipated Discharge Date Admission Date: August 21, 2024 Supervising Physician Co-Signing Physician Notes Attending attestation Pt seen and examined in concert with Dr. Fowler. In agreement with the documented findings as noted in the resident documentation with any exceptions or additions as noted here. No acute complaint at time of examination. Now oriented to self, place, time and context. Declines rehab services after discussion of risks/benefits, however spouse recently hospitalized and son unable to provide care. On examination, S1/S2 nl RRR no MCG. CTAB. Abd NT/ND BS+ve Delirium, multifactorial w/ metabolic encephalopathy - PT/OT recs rehab services, patient wishes to return home but son unable to provide support. d/w case management. UTI - abnormal UA, UCx NGTD past 48 hr. Discontinue ceftriaxone. Borderline hypotension, chronic - trend BMP daily Thrombocytopenia and elevated INR - trend daily, consider hematology evaluation in outpatient if stable. Agree w/ holding DVT prophylaxis, hopeful return to activity with rapidly correcting delirium. Else see resident documentation as noted. Subjective She was oriented to time , place and person. Clinically better compared to yesterday. Denied abdominal pain, burning micturition or any symptoms of UTI. Review of Systems Review of Systems: As per HPI Physical Exam Constitutional: WD/WN, vitals as above well developed; no acute distress Eyes: PERRL, conjunctivae normal, anicteric sclerae ENMT: external ear and nose normal, oropharynx normal Ears: no hearing impairment Neck: trachea midline, no thyromegaly trachea midline Respiratory: normal respiratory effort, lungs clear to auscultation normal respiratory effort and + respiratory distress; no labored breathing and no retractions Auscultation: lungs clear to auscultation bilaterally Cardiovascular: RRR, no murmur, no edema Rate/Rhythm: regular rate and regular rhythm Chest (Breasts): normal inspection/palpation of breasts Chest: normal inspection of chest Results & Data Results & Data Vital Signs (Past 12 Hours) Vital Signs Temp Pulse Resp BP Pulse Ox O2 Del Method 08/24/24 07:26 36.3 C L 65 16 110/70 95 Room Air 08/23/24 21:36 36.8 C 55 L 18 99/63 L 93 Room Air 08/23/24 21:15 Room Air
[2024-08-24 08:17] LABS: Basophils # (auto) 0.02 K/uL (0.00-0.20); Basophils % (auto) 0.5 %; Hematocrit (blood only) 35.1 % (37.0-47.0); Hemoglobin 12.1 g/dl (12.0-16.0); Immature Granulocytes # (auto) 0.04 K/uL (0.01-0.20); Immature Granulocytes % (auto) 1.1 %; Lymphocytes # (auto) 1.65 K/uL (1.20-3.40); Lymphocytes % (auto) 43.7 %; Mean Corpuscular Hemoglobin 31.3 pg (25.0-34.0); Mean Corpuscular Hgb Conc 34.5 g/dL (32.0-36.0); Mean Corpuscular Volume 90.7 fL (80.0-100.0); Mean Platelet Volume 9.6 fL (9.4-12.4); Monocytes # (auto) 0.37 K/uL (0.11-0.59); Monocytes % (auto) 9.8 %; Neutrophils % (auto) 44.9 %; Platelet Count 76 K/uL (130-400); RDW Coefficient of Variation 12.8 % (11.5-14.5); RDW Standard Deviation 42.1 fL (36.4-46.3); Red Blood Count 3.87 M/uL (4.20-5.40); White Blood Count 3.78 K/ul (4.8-10.8)
[2024-08-24 09:25] LABS: Albumin Level 3.5 gm/dl (3.4-5.0); Bilirubin,Total 0.4 mg/dl (0.2-1.0); Calcium 9.4 mg/dl (8.6-10.3)
[2024-08-24 09:31] LABS: Albumin Globulin Ratio 1.2 (0.9-2); BUN Creatinine Ratio 9.7 (10-20); Creatinine Clr Calc Pharmacy 71.7 ml/min; Globulin 2.9 gm/dl (2.5-4.0); Total Protein 6.4 gm/dl (6.0-8.3)
--- NOTE | 2024-08-25 06:59 | Hospitalist Progress Note ---
Date of Service August 25, 2024 Assessment & Plan (1) Dehydration: (2) Delirium: (3) Acute UTI (urinary tract infection): (4) Type 2 diabetes mellitus: (5) Hypothyroidism: Plan Ashley is a 64 Y O Female with PMH of hypothyroidism, hyperlipidemia, and Type II DM admitted for Delirium. #Delirium/metabolic encephalopathy 2/2 to acute dehydration and UTI - Likely due to acute dehydration and UTI -Clinically improving. Plan: -Delirium precautions -Encouraged patient to drink plenty water 2 to 3 litre per day -Patient willing to go home. Son unable to take care of her 01/12. CM working on securing rehab placement for her. But she has no insurance. Will be reevaluated tomorrow by PT/OT and reassess her if she can go home. #Type 2 diabetes - Has history of type II DM -No home meds -HBa1C(06/01): 6.2 -FB Plan -Will continue to monitor glucose #Thrombocytopenia and mild INR elevation -New Thrombocytopenia since May -Platelet count today: 77 Plan -Follow up with hem/onc on outpatient DVT prophylaxis: Hold off now in setting of Thrombocytopenia Code status: Full Dispo: According to PT/OT recommendation, she needs acute rehab before home Admission and Anticipated Discharge Date Admission Date: August 21, 2024 Supervising Physician Co-Signing Physician Notes Attending attestation Pt seen and examined in concert with Dr. Fowler. In agreement with the documented findings as noted in the resident documentation with any exceptions or additions as noted here. No acute complaint at time of examination. Oriented to self, place, time and context. On examination, S1/S2 nl RRR no MCG. CTAB. Abd NT/ND BS+ve Delirium, multifactorial w/ metabolic encephalopathy - PT/OT recs rehab services, patient engaged w/ same. Case management aware. Borderline hypotension, chronic - trend BMP daily Thrombocytopenia and elevated INR - trend daily, consider hematology evaluation in outpatient if stable. Agree w/ holding DVT prophylaxis, hopeful return to activity with rapidly correcting delirium. Else see resident documentation as noted. Subjective Appears to be improving clinically. She was oriented to time , place and person and the situation Denied abdominal pain, burning micturition , any symptoms of UTI. or new concerns Review of Systems Review of Systems: As per HPI Physical Exam Constitutional: WD/WN, vitals as above well developed; no acute distress Eyes: PERRL, conjunctivae normal, anicteric sclerae ENMT: external ear and nose normal, oropharynx normal Ears: no hearing impairment Neck: trachea midline, no thyromegaly trachea midline Respiratory: normal respiratory effort, lungs clear to auscultation normal respiratory effort and + respiratory distress; no labored breathing and no retractions Auscultation: lungs clear to auscultation bilaterally Cardiovascular: RRR, no murmur, no edema Rate/Rhythm: regular rate and regular rhythm Chest (Breasts): normal inspection/palpation of breasts Chest: normal inspection of chest Results & Data Results & Data Vital Signs (Past 12 Hours) Vital Signs Temp Pulse Resp BP Pulse Ox O2 Del Method 08/24/24 21:02 36.6 C 53 L 18 97/58 L 95 Room Air 08/24/24 19:50 Room Air
[2024-08-25 07:18] LABS: Basophils # (auto) 0.01 K/uL (0.00-0.20); Basophils % (auto) 0.3 %; Immature Granulocytes # (auto) 0.02 K/uL (0.01-0.20); Immature Granulocytes % (auto) 0.5 %; Lymphocytes # (auto) 1.45 K/uL (1.20-3.40); Lymphocytes % (auto) 36.5 %; Mean Corpuscular Hemoglobin 31.8 pg (25.0-34.0); Mean Corpuscular Hgb Conc 34.4 g/dL (32.0-36.0); Mean Corpuscular Volume 92.5 fL (80.0-100.0); Mean Platelet Volume 9.6 fL (9.4-12.4); Monocytes # (auto) 0.43 K/uL (0.11-0.59); Monocytes % (auto) 10.8 %; Neutrophils # (auto) 2.06 K/uL (1.40-6.50); Neutrophils % (auto) 51.9 %; Platelet Count 77 K/uL (130-400); RDW Coefficient of Variation 12.8 % (11.5-14.5); RDW Standard Deviation 43.3 fL (36.4-46.3); Red Blood Count 3.46 M/uL (4.20-5.40); White Blood Count 3.97 K/ul (4.8-10.8)
[2024-08-25 07:43] LABS: Albumin Level 3.3 gm/dl (3.4-5.0); Bilirubin,Total 0.5 mg/dl (0.2-1.0); Calcium 9.1 mg/dl (8.6-10.3); Potassium 4.1 mmol/L (3.5-5.1)
[2024-08-25 07:49] LABS: Albumin Globulin Ratio 1.3 (0.9-2); BUN Creatinine Ratio 11.4 (10-20); Creatinine Clr Calc Pharmacy 73.7 ml/min; Globulin 2.5 gm/dl (2.5-4.0); Total Protein 5.8 gm/dl (6.0-8.3)
--- NOTE | 2024-08-26 07:32 | Hospitalist Progress Note ---
Date of Service August 26, 2024 Assessment & Plan (1) Dehydration: (2) Delirium: (3) Acute UTI (urinary tract infection): (4) Type 2 diabetes mellitus: (5) Hypothyroidism: Plan Ashley is a 64 Y O Female with PMH of hypothyroidism, hyperlipidemia, and Type II DM admitted for Delirium. #Delirium/metabolic encephalopathy 2/2 to acute dehydration and UTI - Likely due to acute dehydration and UTI -Clinically improving. Plan: -Delirium precautions -Encouraged patient to drink plenty water 2 to 3 litre per day -Evaluated by PT/OT today. Recommend rehab. CM aware and pending placement for ongoing care. #Thrombocytopenia and mild INR elevation -New Thrombocytopenia since May -Follow up with hem/onc on outpatient DVT prophylaxis: Hold off now in setting of Thrombocytopenia Code status: Full Dispo: According to PT/OT recommendation, she needs acute rehab before home Admission and Anticipated Discharge Date Admission Date: August 21, 2024 Supervising Physician Co-Signing Physician Notes Attending attestation Pt seen and examined in concert with Dr. Fowler. In agreement with the documented findings as noted in the resident documentation with any exceptions or additions as noted here. No acute complaint at time of examination. Oriented to self, place, time and context. On examination, S1/S2 nl RRR no MCG. CTAB. Abd NT/ND BS+ve Deconditioning/ambulatory dysfunction - engaged with rehab services. CM aware a nd pending placement for ongoing care. Thrombocytopenia and elevated INR - trend daily, consider hematology evaluation in outpatient if stable. Agree w/ holding DVT prophylaxis, hopeful return to activity with rapidly correcting delirium. Delirium, multifactorial w/ metabolic encephalopathy - resolved, returned to baseline. Else see resident documentation as noted. Subjective Appears to be improving clinically. She was oriented to time , place and person and the situation Denied abdominal pain, burning micturition , any symptoms of UTI. or new concerns Review of Systems Review of Systems: As per HPI Physical Exam Constitutional: WD/WN, vitals as above well developed; no acute distress Eyes: PERRL, conjunctivae normal, anicteric sclerae ENMT: external ear and nose normal, oropharynx normal Ears: no hearing impairment Neck: trachea midline, no thyromegaly trachea midline Respiratory: normal respiratory effort, lungs clear to auscultation normal respiratory effort and + respiratory distress; no labored breathing and no retractions Auscultation: lungs clear to auscultation bilaterally Cardiovascular: RRR, no murmur, no edema Rate/Rhythm: regular rate and regular rhythm Chest (Breasts): normal inspection/palpation of breasts Chest: normal inspection of chest Results & Data Results & Data Vital Signs (Past 12 Hours) Vital Signs Temp Pulse Resp BP Pulse Ox O2 Del Method 08/26/24 00:10 Room Air 08/25/24 21:15 Room Air 08/25/24 19:56 36.5 C 54 L 16 101/61 95 Room Air
[2024-08-26] MEDS: CLOTRIMAZOLE/BETAMETHASONE CR 15 GM TUBE EXT PRN (09:13)
--- NOTE | 2024-08-27 08:59 | Hospitalist Progress Note ---
Date of Service August 27, 2024 Assessment & Plan (1) Dehydration: (2) Delirium: (3) Acute UTI (urinary tract infection): (4) Type 2 diabetes mellitus: (5) Hypothyroidism: Plan Ashley is a 64 Y O Female with PMH of hypothyroidism, hyperlipidemia, and Type II DM admitted for Delirium. #Delirium/metabolic encephalopathy 2/2 to acute dehydration and UTI - Likely due to acute dehydration and UTI -Clinically improving. Plan: -Delirium precautions -Encouraged patient to drink plenty water 2 to 3 litre per day -Evaluated by PT/OT today. Recommend rehab. CM aware and pending placement for ongoing care. #Thrombocytopenia and mild INR elevation -New Thrombocytopenia since May -Follow up with hem/onc on outpatient DVT prophylaxis: Hold off now in setting of Thrombocytopenia Code status: Full Dispo: According to PT/OT recommendation, she needs acute rehab before home Admission and Anticipated Discharge Date Admission Date: August 21, 2024 Supervising Physician Co-Signing Physician Notes Attending attestation Pt seen and examined in concert with Dr. Fowler. In agreement with the documented findings as noted in the resident documentation with any exceptions or additions as noted here. No acute complaint at time of examination. Oriented to self, place, time and context. On examination, S1/S2 nl RRR no MCG. CTAB. Abd NT/ND BS+ve Deconditioning/ambulatory dysfunction - engaged with rehab services. CM aware a nd pending placement for ongoing care. Thrombocytopenia and elevated INR - has been stable throughout, consider hematology evaluation in outpatient if ongoing at follow up. Restart DVT PPX Delirium, multifactorial w/ metabolic encephalopathy - resolved, returned to baseline. Else see resident documentation as noted. Subjective Appears to be improving clinically. She was oriented to time , place and person and the situation Denied abdominal pain, burning micturition , any symptoms of UTI. or new concerns Review of Systems Review of Systems: As per HPI Physical Exam Constitutional: WD/WN, vitals as above well developed; no acute distress Eyes: PERRL, conjunctivae normal, anicteric sclerae ENMT: external ear and nose normal, oropharynx normal Ears: no hearing impairment Neck: trachea midline, no thyromegaly trachea midline Respiratory: normal respiratory effort, lungs clear to auscultation normal respiratory effort and + respiratory distress; no labored breathing and no retractions Auscultation: lungs clear to auscultation bilaterally Cardiovascular: RRR, no murmur, no edema Rate/Rhythm: regular rate and regular rhythm Chest (Breasts): normal inspection/palpation of breasts Chest: normal inspection of chest Results & Data Results & Data Vital Signs (Past 12 Hours) Vital Signs Temp Pulse Resp BP Pulse Ox O2 Del Method 08/27/24 07:34 36.5 C 58 L 16 104/65 96 Room Air
[2024-08-27 14:58] LABS: Basophils # (auto) 0.01 K/uL (0.00-0.20); Basophils % (auto) 0.2 %; Hematocrit (blood only) 32.9 % (37.0-47.0); Hemoglobin 11.5 g/dl (12.0-16.0); Immature Granulocytes # (auto) 0.03 K/uL (0.01-0.20); Immature Granulocytes % (auto) 0.6 %; Lymphocytes # (auto) 1.33 K/uL (1.20-3.40); Lymphocytes % (auto) 26.3 %; Mean Corpuscular Hemoglobin 31.9 pg (25.0-34.0); Mean Corpuscular Volume 91.4 fL (80.0-100.0); Mean Platelet Volume 9.7 fL (9.4-12.4); Monocytes # (auto) 0.58 K/uL (0.11-0.59); Monocytes % (auto) 11.5 %; Neutrophils % (auto) 61.4 %; Platelet Count 90 K/uL (130-400); RDW Coefficient of Variation 12.7 % (11.5-14.5); RDW Standard Deviation 42.5 fL (36.4-46.3); White Blood Count 5.05 K/ul (4.8-10.8)
[2024-08-27 15:14] LABS: Albumin Globulin Ratio 1.3 (0.9-2); Albumin Level 3.4 gm/dl (3.4-5.0); BUN Creatinine Ratio 11.5 (10-20); Bilirubin,Total 0.5 mg/dl (0.2-1.0); Calcium 9.2 mg/dl (8.6-10.3); Creatinine Clr Calc Pharmacy 66.1 ml/min; Globulin 2.6 gm/dl (2.5-4.0); Potassium 4.7 mmol/L (3.5-5.1)
[2024-08-28] MEDS: COUGH DROP (SUGAR FREE) LOZ 24 LOZ/1 BOX BUCCAL ONE (05:46)
[2024-08-28] MEDS: MAGNESIUM HYDROXIDE SUSP 30 ML UDC PO PRN (08:36)
--- NOTE | 2024-08-28 13:45 | Hospitalist Progress Note ---
Date of Service August 28, 2024 Assessment & Plan (1) Dehydration: (2) Delirium: (3) Acute UTI (urinary tract infection): (4) Type 2 diabetes mellitus: (5) Hypothyroidism: Plan Ashley is a 64 Y O Female with PMH of hypothyroidism, hyperlipidemia, and Type II DM admitted for Delirium. #Delirium/metabolic encephalopathy 2/2 to acute dehydration and UTI - Likely due to acute dehydration and UTI - s/p Rocephin x 3 days, UC negative 08/21 - Head CT 08/21: stable; CXR 08/21: mildly prominent bronchovascular markings unchanged - Delirium precautions, encourage PO intake. - PT/OT recommending rehab --> CM aware, placement pending. - AM labs, include ammonia level. #Thrombocytopenia and mild INR elevation -New Thrombocytopenia since May, plt 90 - recent CTAP 06/07/24: mild hepatomegaly, no findings of chronic liver disease. -Follow up with hem/onc on outpatient DVT prophylaxis: Hold in setting of thrombocytopenia. Code status: Full Patient stable for discharge awaiting placement. Admission and Anticipated Discharge Date Admission Date: August 21, 2024 Subjective Patient seen and examined this morning. Patient was doing well this morning. She denied any complaints. Physical Exam Constitutional: WD/WN, vitals as above Eyes: PERRL, conjunctivae normal, anicteric sclerae Respiratory: breathing unlabored Cardiovascular: well perfused Psychiatric: A+Ox3, euthymic affect Results & Data Results & Data Vital Signs (Past 12 Hours) Vital Signs Temp Pulse Resp BP Pulse Ox O2 Del Method 08/28/24 06:54 36.5 C 58 L 16 116/69 94 Room Air PG Care Time/CCT Total # of Minutes Spent Total Time Spent with Patient: Total time spent is greater than 50% in coordination of care (as documented) at patient's floor/unit and/or counseling patient: Coding Level of Care Code 00750 SUB INP/OBS CARE 2/35MIN Diagnoses Dehydration E86.0 Delirium R41.0 Acute UTI (urinary tract infection) N39.0 Type 2 diabetes mellitus E11.9 Hypothyroidism E03.9
[2024-08-28] MEDS: ACETAMINOPHEN 325 MG TAB PO PRN (20:01)
[2024-08-29 07:09] LABS: Hematocrit (blood only) 30.7 % (37.0-47.0); Mean Corpuscular Hemoglobin 31.8 pg (25.0-34.0); Mean Corpuscular Hgb Conc 35.8 g/dL (32.0-36.0); Mean Corpuscular Volume 88.7 fL (80.0-100.0); Mean Platelet Volume 9.2 fL (9.4-12.4); Platelet Count 67 K/uL (130-400); RDW Coefficient of Variation 12.7 % (11.5-14.5); RDW Standard Deviation 41.1 fL (36.4-46.3); Red Blood Count 3.46 M/uL (4.20-5.40)
[2024-08-29 07:25] LABS: BUN Creatinine Ratio 7.4 (10-20); Calcium 8.9 mg/dl (8.6-10.3); Creatinine Clr Calc Pharmacy 75.9 ml/min; Potassium 4.1 mmol/L (3.5-5.1)
--- NOTE | 2024-08-29 13:31 | Hospitalist Progress Note ---
Date of Service August 29, 2024 Assessment & Plan (1) Dehydration: (2) Delirium: (3) Acute UTI (urinary tract infection): (4) Type 2 diabetes mellitus: (5) Hypothyroidism: Plan Ashley is a 64 Y O Female with PMH of hypothyroidism, hyperlipidemia, and Type II DM admitted for Delirium likely secondary to dehydration and possible UTI. Received 3 doses of ceftriaxone, but urine culture was negative. #Delirium/metabolic encephalopathy 2/2 to acute dehydration and UTI Head CT 08/21: stable; CXR 08/21: mildly prominent bronchovascular markings unchanged. Ammonia level WNL Delirium precautions, encourage PO intake. PT/OT recommending rehab --> CM aware, working on obtaining insurance for patient #Thrombocytopenia and mild INR elevation New Thrombocytopenia since May, plt 90, recent CTAP 06/07/24: mild hepatomegaly, no findings of chronic liver disease. Plt 67 today, but no active bleeding. ? seizure meds as possible cause, dose increased 01/2024 - will check valproic acid level in AM Follow up with hem/onc on outpatient DVT prophylaxis: Hold in setting of thrombocytopenia. Dipso: awaiting placement. Admission and Anticipated Discharge Date Admission Date: August 21, 2024 Subjective Patient seen sitting up in the chair. Just getting off the phone talking to a family member denies acute complaints Offered coloring pages and she declined Aware working on insurance and rehab Review of Systems Review of Systems: All systems reviewed & are unremarkable except as noted in Subjective Physical Exam Constitutional: WD/WN, vitals as above sitting up in the chair Eyes: PERRL, conjunctivae normal, anicteric sclerae Respiratory: breathing unlabored Cardiovascular: well perfused Psychiatric: A+Ox3, euthymic affect Results & Data Results & Data Vital Signs (Past 12 Hours) Vital Signs Temp Pulse Resp BP Pulse Ox O2 Del Method 08/29/24 10:48 67 17 114/70 97 Room Air 08/29/24 08:15 Room Air 08/29/24 08:00 98.1 F 49 L 17 99/62 L 94 Room Air Laboratory Results cbc and chemistry reviewed PG Care Time/CCT Total # of Minutes Spent Total Time Spent with Patient: Total time spent is greater than 50% in coordination of care (as documented) at patient's floor/unit and/or counseling patient: Coding Level of Care Code 67628 SUB INP/OBS CARE 1/25MIN Diagnoses Dehydration E86.0 Delirium R41.0 Acute UTI (urinary tract infection) N39.0 Type 2 diabetes mellitus E11.9 Hypothyroidism E03.9
[2024-08-29] MEDS: POLYETHYLENE (MIRALAX) 17 GM PACK PO PRN (15:10)
[2024-08-30 07:46] LABS: Hematocrit (blood only) 33.7 % (37.0-47.0); Hemoglobin 11.8 g/dl (12.0-16.0); Mean Corpuscular Hemoglobin 31.4 pg (25.0-34.0); Mean Corpuscular Volume 89.6 fL (80.0-100.0); Mean Platelet Volume 9.6 fL (9.4-12.4); Platelet Count 68 K/uL (130-400); RDW Coefficient of Variation 12.8 % (11.5-14.5); RDW Standard Deviation 41.4 fL (36.4-46.3); Red Blood Count 3.76 M/uL (4.20-5.40); White Blood Count 4.78 K/ul (4.8-10.8)
[2024-08-30 10:41] LABS: Ferritin 130.1 ng/ml (8-388)
[2024-08-30 10:47] LABS: Folate (Folic Acid),Ser orPlas 9.65 ng/ml (>5.38)
[2024-08-30 10:48] LABS: Vitamin B12 > 1500 pg/ml (180-914)
--- NOTE | 2024-08-30 13:58 | Hospitalist Progress Note ---
Date of Service August 30, 2024 Assessment & Plan (1) Delirium: (2) Pancytopenia: (3) Acute UTI (urinary tract infection): (4) History of glioma: Plan Ashley is a 64 Y O Female with PMH of hypothyroidism, hyperlipidemia, oligodendroma resection, seizure disorder, hx of CVA (september 2020) and Type II DM admitted for Delirium likely secondary to dehydration and possible UTI. Received 3 doses of ceftriaxone, but urine culture was negative. #Delirium/metabolic encephalopathy 2/2 to acute dehydration and UTI-improving Head CT 08/21: stable; CXR 08/21: mildly prominent bronchovascular markings unchanged. Ammonia level WNL Delirium precautions, encourage PO intake. PT/OT recommending rehab --> CM aware, working on obtaining insurance for patient. Recommend increasing activity #Pancytopenia and mild INR elevation New Thrombocytopenia since May, plt 90, recent CTAP 06/07/24: mild hepatomegaly, no findings of chronic liver disease. Plt 67 today, but no active bleeding. ? seizure meds as possible cause, dose increased 01/2024 - valproic acid level in range peripheral smear - no signs of myelodysplasia B12 significant elevated - B12 supplement held and can likely decrease frequency at discharge. Folate/Fe studies WNL Follow up with hem/onc on outpatient - monitor labs Q2days while inpatient #Constipation last reported BM 08/24, unclear if this is true or not Discussed with RN - utilizing PRNs, encouraging walking in the halls at least TID #Hx of CVA - last neuro note says to continue aspirin, aspirin listed on allergy list and not on home med list (was prior to admission 05/2024) - will ask family when able to reach them. Hx of oligodendroglioma removed in 2000 - seizure disorder since - takes Depakote , level WNL #hypothyroid - TSH here normal -continue Synthroid DVT prophylaxis: Hold in setting of thrombocytopenia, encourage ambulation Dispo: awaiting placement. LM for son 08/30 Admission and Anticipated Discharge Date Admission Date: August 21, 2024 Supervising Physician Co-Signing Physician Notes KASSIE Supervision Note: I did not personally see or examine the patient today, but I verified all cisneros points of KASSIE Justin's assessment and plan with the following exceptions/additions: None Subjective Patient seen sitting up in the chair - does state she has issues with constipation at home. Does not normally take anything for this. Her last documented BM was 8 days ago, and thinks this could be accurate encouraged to walk in the halls to help with bowel function and strength and she was agreeable - discussed this with nursing staff oritented to person and place, tells me its august 27, 2024 Review of Systems Review of Systems: All systems reviewed & are unremarkable except as noted in Subjective Physical Exam Physical Exam: General: NAD, VS as above Resp: normal respiratory effort, lungs clear to auscultation CV: RRR, no murmur, Abd: normal bowel sounds, non tender, soft Extremities: Moves all extremities, no edema Neuro: A&O x3, thought date is august 27, 2024 Results & Data Results & Data Vital Signs (Past 12 Hours) Vital Signs Temp Pulse Resp BP Pulse Ox O2 Del Method 08/30/24 08:00 Room Air 08/30/24 07:39 97.7 F 51 L 18 107/66 96 Room Air Laboratory Results valproic acid, B12, folate and iron studies reviewed CBC reviewed PG Care Time/CCT Total # of Minutes Spent Total Time Spent with Patient: Total time spent is greater than 50% in coordination of care (as documented) at patient's floor/unit and/or counseling patient: Coding Level of Care Code 19539 SUB INP/OBS CARE 2/35MIN Diagnoses Delirium R41.0 Pancytopenia D61.818 Acute UTI (urinary tract infection) N39.0 History of glioma Z87.898
--- NOTE | 2024-08-31 11:41 | Hospitalist Progress Note ---
Date of Service August 31, 2024 Assessment & Plan (1) Delirium: (2) Pancytopenia: (3) Acute UTI (urinary tract infection): (4) History of glioma: Plan Ashley is a 64 Y/O Female with PMH of hypothyroidism, hyperlipidemia, oligodendroma resection, seizure disorder, hx of CVA (september 2020) and Type II DM admitted for Delirium likely secondary to dehydration and possible UTI. Received 3 doses of ceftriaxone, but urine culture was negative. #Delirium/metabolic encephalopathy 2/2 to acute dehydration and UTI-improving Head CT 08/21: stable; CXR 08/21: mildly prominent bronchovascular markings unchanged. Ammonia level WNL Delirium precautions, encourage PO intake. PT/OT recommending rehab --> CM aware, working on obtaining insurance for patient. Recommend increasing activity #Pancytopenia and mild INR elevation New Thrombocytopenia since May, plt 90, recent CTAP 06/07/24: mild hepatomegaly, no findings of chronic liver disease. Plt 67 today, but no active bleeding. ? seizure meds as possible cause, dose increased 01/2024 - valproic acid level in range peripheral smear - no signs of myelodysplasia B12 significant elevated - B12 supplement held and can likely decrease frequency at discharge. Folate/Fe studies WNL Heme consulted -suspect medication induced, check SPEP with BHARAT, quant immunoglobulins and serum free light chains to rule out plasma cell dyscrasia. #Constipation small BM 08/30 Discussed with RN - utilizing PRNs, encouraging walking in the halls TID #Hx of CVA - last neuro note says to continue aspirin, aspirin listed on allergy list and not on home med list (was prior to admission 05/2024) - son reports she is supposed to be taking this but never has it to fill her pill pack. will consider restarting tomorrow AM pending platelet count Hx of oligodendroglioma removed in 2000 - seizure disorder since - takes Depakote , level WNL #hypothyroid - TSH here normal -continue Synthroid DVT prophylaxis: Hold in setting of thrombocytopenia, encourage ambulation Dispo: awaiting placement. Son updated by phone 08/31 Admission and Anticipated Discharge Date Admission Date: August 21, 2024 Supervising Physician Co-Signing Physician Notes PA Supervision Note: I did not personally see or examine the patient today, but I verified all cisneros points of KASSIE Justin's assessment and plan with the following exceptions/additions: None Subjective Patient seen sitting up in the chair, watching tv no acute complaints. does think she had a BM yesterday thinks she has been told to take aspirin in the past, but has not been taking it. has not seen a junior assistant manager. Physical Exam Physical Exam: General: NAD, VS as above, sitting up in the chair Resp: normal respiratory effort, lungs clear to auscultation CV: RRR, no murmur, Abd: normal bowel sounds, non tender, soft Extremities: Moves all extremities, no edema Results & Data Results & Data Vital Signs (Past 12 Hours) Vital Signs Temp Pulse Resp BP Pulse Ox O2 Del Method 08/31/24 10:45 Room Air 08/31/24 08:00 97.7 F 69 16 128/66 99 Room Air PG Care Time/CCT Total # of Minutes Spent Total Time Spent with Patient: Total time spent is greater than 50% in coordination of care (as documented) at patient's floor/unit and/or counseling patient: Coding Level of Care Code 91376 SUB INP/OBS CARE 2/35MIN Diagnoses Delirium R41.0 Pancytopenia D61.818 Acute UTI (urinary tract infection) N39.0 History of glioma Z87.898
--- NOTE | 2024-08-31 12:51 | Oncology Consultation ---
Date of Consultation August 31, 2024 Assessment & Plan (1) Pancytopenia: Plan Reviewed her prior labs, suspect that pancytopenia likely medication induced likely secondary to valproic acid since counts started dropping after switching from Keppra. Will however check SPEP with BHARAT, quant immunoglobulins and serum free light chains to rule out plasma cell dyscrasia. Recommend outpatient follow-up with hematology. No indication for bone marrow biopsy at this time unless cytopenias continue to worsen. Thank you for this consult. Please feel free to call if you have any further questions History of Present Illness Reason for Consultation: Pancytopenia Attending Physician: Mira Hall MD History of Present Illness 64-year-old female with medical history significant for type 2 diabetes mellitus,, seizure disorder who was admitted to [facility] with altered mental status secondary to dehydration and UTI. Hematology was consulted for pancytopenia. CBC from 08/30/2024 showed WBC of 4.7, hemoglobin 11.8, hematocrit 33.7, platelet count of 68,000. Anemia workup including iron panel, B12 and folate level was within normal limits. Peripheral smear review by pathology also unremarkable.She is currently on valproic acid for seizure disorder Allergies Allergy/AdvReac Type Severity Reaction Status Date / Time Sulfa (Sulfonamide Allergy Intermediate ITCHING, Verified 06/07/24 09:57 Antibiotics) BURNING aspirin AdvReac Unknown TO AVOID Verified 06/07/24 09:57 -HX BRAIN TUMOR NOT TO TAKE Home Medications Medication Instructions Recorded Confirmed Type acetaminophen 325 mg tablet 650 mg PO Q6 PRN Fever Or Pain 01/19/23 08/21/24 History (Tylenol) melatonin 3 mg tablet 3 mg PO HS #30 tabs 01/24/23 08/21/24 Rx clotrimazole-betamethasone 1 1 applic topical BID PRN Skin 01/06/24 08/21/24 History %-0.05 % topical cream Irritation cyanocobalamin (vitamin B-12) 500 1,000 mcg PO QDL 01/06/24 08/21/24 History mcg tablet thiamine HCl (vitamin B1) 100 mg 200 mg PO BIDM 01/06/24 08/21/24 History tablet divalproex 500 mg tablet,delayed 500 mg PO BID #180 tabs 02/05/24 08/21/24 Rx release levothyroxine 50 mcg tablet 50 mcg PO DAILY #90 tabs 03/30/24 08/21/24 Rx montelukast 10 mg tablet 0 mg PO DAILY 06/07/24 08/21/24 History (Singulair) omeprazole 20 mg capsule,delayed 0 mg PO DAILY 06/07/24 08/21/24 History release atorvastatin 40 mg tablet See Rx Instructions .Route 08/08/24 08/21/24 Rx .COMPLEX #90 tabs potassium chloride 20 mEq See Rx Instructions .Route 08/08/24 08/21/24 Rx tablet,extended release .COMPLEX #90 tabs Patient History Medical History (Updated 08/23/24 @ 11:28 by Juan J Buck MD) Acute encephalopathy Allergic rhinitis Chronic sinusitis Acute hyponatremia Acute confusion Fecal incontinence Recurrent herpes labialis Weakness Generalized weakness Diarrhea Ambulatory dysfunction Esophageal reflux Seizure disorder Hypomagnesemia Vitamin D deficiency History of CVA (cerebrovascular accident) lacunar infarct 09/2020>STILL HAS NUMBNESS IN RT HAND AND RT SIDE OF FACE Multiple pulmonary nodules stable on imaging - no further workup required Hx of brain cancer Right temporal glioma, s/p surgery, 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 Surgical History History of cataract surgery right Hx of colonoscopy Hx of tubal ligation Hx of section Hx of brain surgery 2000-[facility] Family History Grandmother Family history of diabetes mellitus Father Myocardial infarction Other No significant family history Denies family history of Ovarian cancer Prostate cancer Breast cancer Colorectal cancer Social History Smoking Status: Never smoker Tobacco Type: Smokeless Tobacco (Dip or Chew) Second Hand Exposure: No; Do You Dip or Chew Tobacco: No; Hx Alcohol Use: No Hx Substance Use: No Preferred Language: Sammarinese Communication Ability: Effective Communication Ability Comment: TROUBLE HEARING OUT OF RIGHT SIDE Cistern Room Working Supervisor Required: No Beliefs That Will Affect Care: None marital status: Current Living Situation: Spouse current occupational status: employed current occupation: [employer]- [employer] Feels Safe at Home: Yes Safety Concerns Comment: Fear of falling, has lift to go upstairs, patient has been using. Childhood Exposure to Second-Hand Smoke: Yes Diet: regular caffeine: Yes (diet soda) Dental Care, Regularly: No Physical Activity Frequency: Does not Exercise Seatbelt Use: always Sunscreen Use: Yes Assistive Devices: Cane, Stair Lift and Walker Results & Data Vital Signs (Past 12 Hours) Vital Signs Temp Pulse Resp BP BP Pulse Ox O2 Del Method 08/31/24 12:02 36.5 C 14 111/69 98 Room Air 08/31/24 10:45 Room Air 08/31/24 08:00 36.5 C 69 16 128/66 99 Room Air
[2024-08-31 13:39] LABS: Immunoglobulin A 137.8 mg/dl (70-400); Immunoglobulin M 51.8 mg/dl (45-281)
[2024-09-01] MEDS: POLYETHYLENE (MIRALAX) 17 GM PACK PO SCH (09:08)
[2024-09-01 10:06] LABS: Basophils # (auto) 0.02 K/uL (0.00-0.20); Basophils % (auto) 0.3 %; Hematocrit (blood only) 35.2 % (37.0-47.0); Hemoglobin 12.4 g/dl (12.0-16.0); Immature Granulocytes # (auto) 0.06 K/uL (0.01-0.20); Lymphocytes # (auto) 2.07 K/uL (1.20-3.40); Mean Corpuscular Hemoglobin 31.9 pg (25.0-34.0); Mean Corpuscular Hgb Conc 35.2 g/dL (32.0-36.0); Mean Corpuscular Volume 90.5 fL (80.0-100.0); Mean Platelet Volume 9.5 fL (9.4-12.4); Monocytes # (auto) 0.58 K/uL (0.11-0.59); Monocytes % (auto) 9.8 %; Neutrophils # (auto) 3.19 K/uL (1.40-6.50); Neutrophils % (auto) 53.9 %; Platelet Count 113 K/uL (130-400); RDW Coefficient of Variation 13.1 % (11.5-14.5); RDW Standard Deviation 42.8 fL (36.4-46.3); Red Blood Count 3.89 M/uL (4.20-5.40); White Blood Count 5.92 K/ul (4.8-10.8)
[2024-09-01 10:23] LABS: Calcium 9.5 mg/dl (8.6-10.3); Creatinine Clr Calc Pharmacy 68.8 ml/min; Potassium 4.2 mmol/L (3.5-5.1)
--- NOTE | 2024-09-01 10:47 | Hospitalist Progress Note ---
Date of Service September 01, 2024 Assessment & Plan (1) Delirium: (2) Pancytopenia: (3) Acute UTI (urinary tract infection): (4) History of glioma: Plan Ashley is a 64 Y/O Female with PMH of hypothyroidism, hyperlipidemia, oligodendroma resection, seizure disorder, hx of CVA (september 2020) and Type II DM admitted for Delirium likely secondary to dehydration and possible UTI. Received 3 doses of ceftriaxone, but urine culture was negative. #Delirium/metabolic encephalopathy 2/2 to acute dehydration and UTI-improving Head CT 08/21: stable; CXR 08/21: mildly prominent bronchovascular markings unchanged. Ammonia level WNL Delirium precautions, encourage PO intake. PT/OT recommending rehab --> CM aware, working on obtaining insurance for patient. Recommend increasing activity #Pancytopenia and mild INR elevation New Thrombocytopenia since May, plt 90, recent CTAP 06/07/24: mild hepatomegaly, no findings of chronic liver disease. Plt 113 today, but no active bleeding. ? seizure meds as possible cause, dose increased 01/2024 - valproic acid level in range peripheral smear - no signs of myelodysplasia B12 significant elevated - B12 supplement held and can likely decrease frequency at discharge. Folate/Fe studies WNL Heme consulted -suspect medication induced by depakote, check SPEP with BHARAT, quant immunoglobulins and serum free light chains to rule out plasma cell dyscrasia. - PENDING #Constipation small BM 08/30 Discussed with RN - utilizing PRNs, encouraging walking in the halls TID #Hx of CVA/Seizure disorder/h/o Brain tumor resection - last neuro note says to continue aspirin, aspirin listed on allergy list and not on home med list (was prior to admission 05/2024) - son reports she is supposed to be taking this but never has it to fill her pill pack. Platelets increasing to 113, ASA 81mg qAM started Hx of oligodendroglioma removed in 2000 - seizure disorder since - takes Depakote , level WNL #hypothyroid - TSH here normal -continue Synthroid DVT prophylaxis: Hold in setting of thrombocytopenia and no acute process at this time, encourage ambulation , add SCDs Dispo: continued inpatient stay Son updated by phone 08/31 Admission and Anticipated Discharge Date Admission Date: August 21, 2024 Supervising Physician Co-Signing Physician Notes PA Supervision Note: I did not personally see or examine the patient today, but I verified all cisneros points of KASSIE Justin's assessment and plan with the following exceptions/additions: None Subjective Patient seen sitting up in the chair - no acute complaints does not think she had a bowel movement yesterday offered to take her for a walk but she just recieved a warm blaket - agreeable to go for a walk later, [employer]ROL [employer]ENT notified Review of Systems Review of Systems: All systems reviewed & are unremarkable except as noted in Subjective Physical Exam Physical Exam: General: NAD, VS as above, sitting up in the chair Resp: normal respiratory effort, lungs clear to auscultation CV: RRR, no murmur, Abd: normal bowel sounds, non tender, soft Extremities: Moves all extremities, Results & Data Results & Data Vital Signs (Past 12 Hours) Vital Signs Temp Pulse Resp BP Pulse Ox O2 Del Method 09/01/24 07:44 97.7 F 57 L 16 96/60 L 96 Room Air Laboratory Results cbc and chemistry reviewed PG Care Time/CCT Total # of Minutes Spent Total Time Spent with Patient: Total time spent is greater than 50% in coordination of care (as documented) at patient's floor/unit and/or counseling patient: Coding Level of Care Code 40940 SUB INP/OBS CARE 2/35MIN Diagnoses Delirium R41.0 Pancytopenia D61.818 Acute UTI (urinary tract infection) N39.0 History of glioma Z87.898
[2024-09-01] MEDS: ASPIRIN 81 MG ECTAB PO SCH (11:57)
[2024-09-02 10:54] LABS: BUN Creatinine Ratio 10.1 (10-20); Calcium 9.3 mg/dl (8.6-10.3); Creatinine Clr Calc Pharmacy 65.3 ml/min; Potassium 4.8 mmol/L (3.5-5.1)
--- NOTE | 2024-09-02 11:00 | Hospitalist Progress Note ---
Date of Service September 02, 2024 Assessment & Plan (1) Delirium: (2) Pancytopenia: (3) Acute UTI (urinary tract infection): (4) History of glioma: Plan Ashley is a 64 Y/O Female with PMH of hypothyroidism, hyperlipidemia, oligodendroma resection, seizure disorder, hx of CVA (september 2020) and Type II DM admitted for Delirium likely secondary to dehydration and possible UTI. Received 3 doses of ceftriaxone, but urine culture was negative. #Delirium/metabolic encephalopathy 2/2 to acute dehydration and UTI-improving Head CT 08/21: stable; CXR 08/21: mildly prominent bronchovascular markings unchanged. Ammonia level WNL Delirium precautions, encourage PO intake. PT/OT recommending rehab --> CM aware, working on obtaining insurance for patient. Recommend increasing activity #Pancytopenia and mild INR elevation New Thrombocytopenia since May, plt 90, recent CTAP 06/07/24: mild hepatomegaly, no findings of chronic liver disease. Plt 113 today, but no active bleeding. ? seizure meds as possible cause, dose increased 01/2024 - valproic acid level in range peripheral smear - no signs of myelodysplasia B12 significant elevated - B12 supplement held and can likely decrease frequency at discharge. Folate/Fe studies WNL Heme consulted -suspect medication induced by depakote, check SPEP with BHARAT, quant immunoglobulins and serum free light chains to rule out plasma cell dyscrasia. - PENDING #Hyponatremia Mild - asymptomatic, 130 but improved to 132 Serum osm 281, urine NA 24, urine osm 227 - likely SIADH, continue to monitor with AM BMP #Constipation small BM 08/30 Discussed with RN - utilizing PRNs, encouraging walking in the halls TID #Hx of CVA/Seizure disorder/h/o Brain tumor resection - last neuro note says to continue aspirin, aspirin listed on allergy list and not on home med list (was prior to admission 05/2024) - son reports she is supposed to be taking this but never has it to fill her pill pack. Platelets increasing to 113, ASA 81mg qAM started Hx of oligodendroglioma removed in 2000 - seizure disorder since - takes Depakote , level WNL #hypothyroid - TSH here normal, continue Synthroid DVT prophylaxis: Hold in setting of thrombocytopenia and no acute process at this time, encourage ambulation , added SCDs Dispo: continued inpatient stay, trending Na levels Son updated by phone 08/31 Admission and Anticipated Discharge Date Admission Date: August 21, 2024 Supervising Physician Co-Signing Physician Notes PA Supervision Note: I did not personally see or examine the patient today, but I verified all cisneros points of KASSIE Justin's assessment and plan with the following exceptions/additions: None Subjective Patient seen lying in bed, reports no acute complaints RN reports no BM yesterday denies lightheadedness or dizziness with position changes or out of bed has not urinated yet for urine studies Review of Systems Review of Systems: All systems reviewed & are unremarkable except as noted in Subjective Physical Exam Physical Exam: General: NAD, VS as above, sitting up in the chair HEENT: MM moist Resp: normal respiratory effort, lungs clear to auscultation CV: RRR, no murmur, Abd: normal bowel sounds, non tender, soft Extremities: Moves all extremities, Results & Data Results & Data Vital Signs (Past 12 Hours) Vital Signs Temp Pulse Resp BP Pulse Ox O2 Del Method 09/02/24 07:16 97.5 F L 58 L 18 99/64 L 96 Room Air Laboratory Results bmp reviewed serum osm reviewed PG Care Time/CCT Total # of Minutes Spent Total Time Spent with Patient: Total time spent is greater than 50% in coordination of care (as documented) at patient's floor/unit and/or counseling patient: Coding Level of Care Code 37611 SUB INP/OBS CARE 2/35MIN Diagnoses Delirium R41.0 Pancytopenia D61.818 Acute UTI (urinary tract infection) N39.0 History of glioma Z87.898
[2024-09-03 07:23] LABS: Basophils # (auto) 0.02 K/uL (0.00-0.20); Basophils % (auto) 0.4 %; Hematocrit (blood only) 32.1 % (37.0-47.0); Hemoglobin 11.2 g/dl (12.0-16.0); Immature Granulocytes # (auto) 0.05 K/uL (0.01-0.20); Lymphocytes # (auto) 1.49 K/uL (1.20-3.40); Lymphocytes % (auto) 29.6 %; Mean Corpuscular Hemoglobin 31.6 pg (25.0-34.0); Mean Corpuscular Hgb Conc 34.9 g/dL (32.0-36.0); Mean Corpuscular Volume 90.7 fL (80.0-100.0); Mean Platelet Volume 9.5 fL (9.4-12.4); Monocytes # (auto) 0.61 K/uL (0.11-0.59); Monocytes % (auto) 12.1 %; Neutrophils # (auto) 2.86 K/uL (1.40-6.50); Neutrophils % (auto) 56.9 %; Platelet Count 88 K/uL (130-400); RDW Coefficient of Variation 13.2 % (11.5-14.5); RDW Standard Deviation 43.6 fL (36.4-46.3); Red Blood Count 3.54 M/uL (4.20-5.40); White Blood Count 5.03 K/ul (4.8-10.8)
[2024-09-03 07:37] LABS: BUN Creatinine Ratio 13.6 (10-20); Calcium 9.2 mg/dl (8.6-10.3); Creatinine Clr Calc Pharmacy 78.2 ml/min; Potassium 4.1 mmol/L (3.5-5.1)
--- NOTE | 2024-09-03 10:05 | Hospitalist Progress Note ---
Date of Service September 03, 2024 Assessment & Plan (1) Delirium: (2) Pancytopenia: (3) Acute UTI (urinary tract infection): (4) History of glioma: Plan Ashley is a 64 Y/O Female with PMH of hypothyroidism, hyperlipidemia, oligodendroma resection, seizure disorder, hx of CVA (september 2020) and Type II DM admitted for Delirium likely secondary to dehydration and possible UTI. Received 3 doses of ceftriaxone, but urine culture was negative. #Delirium/metabolic encephalopathy 2/2 to acute dehydration and UTI-improving Head CT 08/21: stable; CXR 08/21: mildly prominent bronchovascular markings unchanged. Ammonia level WNL Delirium precautions, encourage PO intake. PT/OT recommending rehab --> CM aware, working on obtaining insurance for patient. Recommend increasing activity #Pancytopenia and mild INR elevation New Thrombocytopenia since May, plt 90, recent CTAP 06/07/24: mild hepatomegaly, no findings of chronic liver disease. Plt 88 but no active bleeding. ? seizure meds as possible cause, dose increased 01/2024 - valproic acid level in range peripheral smear - no signs of myelodysplasia B12 significant elevated - B12 supplement held and can likely decrease frequency at discharge. Folate/Fe studies WNL Heme consulted -suspect medication induced by depakote, check SPEP with BHARAT, quant immunoglobulins and serum free light chains to rule out plasma cell dyscrasia. - PENDING Would hold aspirin if platelets less than 50 #Hyponatremia Mild - now 131 Serum osm 281, urine NA 24, urine osm 227 - likely SIADH, FR added recheck BMP AM #Constipation small BM 08/30 Discussed with RN - utilizing PRNs, encouraging walking in the halls TID #Hx of CVA/Seizure disorder/h/o Brain tumor resection - last neuro note says to continue aspirin, aspirin listed on allergy list and not on home med list (was prior to admission 05/2024) - son reports she is supposed to be taking this but never has it to fill her pill pack. Platelets stable 88 ASA 81mg qAM started Hx of oligodendroglioma removed in 2000 - seizure disorder since - takes Depakote , level WNL #hypothyroid - TSH here normal, continue Synthroid DVT prophylaxis: Hold in setting of thrombocytopenia and no acute process at this time, encourage ambulation , added SCDs Dispo: continued inpatient stay, trending Na levels Son updated by phone 08/31. LM 09/03 Admission and Anticipated Discharge Date Admission Date: August 21, 2024 Supervising Physician Co-Signing Physician Notes KASSIE Supervision Note: I did not personally see or examine the patient today, but I verified all cisneros points of KASSIE Justin's assessment and plan with the following exceptions/additions: None Subjective patient lying in bed, denies acute complaints offered to go for a walk and she declined Review of Systems Review of Systems: All systems reviewed & are unremarkable except as noted in Subjective Physical Exam Physical Exam: General: NAD, VS as above, sitting up in the chair HEENT: MM moist Resp: normal respiratory effort, lungs clear to auscultation + Cough, dry CV: RRR, no murmur, Abd: normal bowel sounds, non tender, soft Extremities: Moves all extremities, Results & Data Results & Data Vital Signs (Past 12 Hours) Vital Signs Temp Pulse Resp BP Pulse Ox O2 Del Method 09/03/24 07:44 98.4 F 55 L 17 102/66 96 Room Air Laboratory Results cbc and chemistry reviewed PG Care Time/CCT Total # of Minutes Spent Total Time Spent with Patient: Total time spent is greater than 50% in coordination of care (as documented) at patient's floor/unit and/or counseling patient: Coding Level of Care Code 43530 SUB INP/OBS CARE 2/35MIN Diagnoses Delirium R41.0 Pancytopenia D61.818 Acute UTI (urinary tract infection) N39.0 History of glioma Z87.898
[2024-09-04 08:14] LABS: BUN Creatinine Ratio 11.3 (10-20); Calcium 9.3 mg/dl (8.6-10.3); Creatinine Clr Calc Pharmacy 72.7 ml/min; Potassium 4.4 mmol/L (3.5-5.1)
--- NOTE | 2024-09-04 11:47 | Hospitalist Progress Note ---
Date of Service September 04, 2024 Assessment & Plan (1) Delirium: (2) Pancytopenia: (3) Acute UTI (urinary tract infection): (4) History of glioma: Plan Ashley is a 64 Y/O Female with PMH of hypothyroidism, hyperlipidemia, oligodendroma resection, seizure disorder, hx of CVA (september 2020) and Type II DM admitted for Delirium likely secondary to dehydration and possible UTI. Received 3 doses of ceftriaxone, but urine culture was negative. #Delirium/metabolic encephalopathy 2/2 to acute dehydration and UTI-improving Head CT 08/21: stable; CXR 08/21: mildly prominent bronchovascular markings unchanged. Ammonia level WNL Delirium precautions, encourage PO intake. PT/OT recommending rehab --> CM aware, working on obtaining insurance for patient. Recommend increasing activity #Pancytopenia and mild INR elevation New Thrombocytopenia since May, plt 90, recent CTAP 06/07/24: mild hepatomegaly, no findings of chronic liver disease. Plt 88 but no active bleeding. ? seizure meds as possible cause, dose increased 01/2024 - valproic acid level in range peripheral smear - no signs of myelodysplasia B12 significant elevated - B12 supplement held and can likely decrease frequency at discharge. Folate/Fe studies WNL Heme consulted -suspect medication induced by depakote, check SPEP with BHARAT, quant immunoglobulins and serum free light chains to rule out plasma cell dyscrasia. - PENDING Would hold aspirin if platelets less than 50 #Hyponatremia Mild - now 132 Serum osm 281, urine NA 24, urine osm 227 - likely SIADH, continue fluid restriction recheck BMP AM #Constipation small BM 08/30 Discussed with RN - utilizing PRNs, encouraging walking in the halls TID #Hx of CVA/Seizure disorder/h/o Brain tumor resection - last neuro note says to continue aspirin, aspirin listed on allergy list and not on home med list (was prior to admission 05/2024) - son reports she is supposed to be taking this but never has it to fill her pill pack. Platelets stable 88 ASA 81mg qAM started Hx of oligodendroglioma removed in 2000 - seizure disorder since - takes Depakote , level WNL #hypothyroid - TSH here normal, continue Synthroid DVT prophylaxis: Hold in setting of thrombocytopenia and no acute process at this time, encourage ambulation , added SCDs Dispo: continued inpatient stay, trending Na levels Son updated by phone 08/31. LM 09/03 Admission and Anticipated Discharge Date Admission Date: August 21, 2024 Supervising Physician Co-Signing Physician Notes Attending Attestation - Chart reviewed, care plan d/w KASSIE Justin. I agree w/ the cisneros components of her documentation. Clifton Zimmerman MD Subjective attempted to round on patient twice - sleeping soundly both times discussed with RN - washed up and breakfast without issues, no complaints Physical Exam Physical Exam: General: NAD, VS as above, resting in bed HEENT: MM moist Resp: normal respiratory effort, CV: well perfused Results & Data Results & Data Vital Signs (Past 12 Hours) Vital Signs Temp Pulse Resp BP Pulse Ox O2 Del Method 09/04/24 07:56 97.9 F 54 L 16 104/66 96 Room Air Laboratory Results bmp reviewed PG Care Time/CCT Total # of Minutes Spent Total Time Spent with Patient: Total time spent is greater than 50% in coordination of care (as documented) at patient's floor/unit and/or counseling patient: Coding Level of Care Code 85616 SUB INP/OBS CARE 06/04MIN Diagnoses Delirium R41.0 Pancytopenia D61.818 Acute UTI (urinary tract infection) N39.0 History of glioma Z87.898
[2024-09-04] MEDS: ONDANSETRON INJ 2 MG/ML 2 ML VIAL IV PRN (20:17)
[2024-09-05 07:03] LABS: Albumin 3.8 g/dL (3.8-4.8); Alpha 1 Globulin 0.3 g/dL (0.2-0.3); Alpha 2 Globulin 0.6 g/dL (0.5-0.9); Beta-1-Globulin 0.5 g/dL (0.4-0.6); Beta-2-Globulin 0.4 g/dL (0.2-0.5); Free Kappa 24.6 mg/L (3.3-19.4); Free Kappa/Lambda Ratio 1.55 (0.26-1.65); Free Lambda 15.9 mg/L (5.7-26.3); Gamma Globulin 1.3 g/dL (0.8-1.7); Monoclonal Protein Band 1 DNR g/dL (NONE DETECTED); Monoclonal Protein Band 2 DNR g/dL (NONE DETECTED); Monoclonal Protein Band 3 DNR g/dL (NONE DETECTED); Total Protein 6.8 g/dL (6.1-8.1)
[2024-09-05 07:03] LABS: Basophils # (auto) 0.04 K/uL (0.00-0.20); Basophils % (auto) 0.8 %; Hematocrit (blood only) 35.4 % (37.0-47.0); Hemoglobin 11.7 g/dl (12.0-16.0); Lymphocytes # (auto) 1.74 K/uL (1.20-3.40); Lymphocytes % (auto) 34.1 %; Mean Corpuscular Hemoglobin 32.1 pg (25.0-34.0); Mean Corpuscular Hgb Conc 33.1 g/dL (32.0-36.0); Mean Platelet Volume 9.3 fL (9.4-12.4); Monocytes # (auto) 0.54 K/uL (0.11-0.59); Monocytes % (auto) 10.6 %; Neutrophils # (auto) 2.69 K/uL (1.40-6.50); Neutrophils % (auto) 52.5 %; Platelet Count 86 K/uL (130-400); RDW Coefficient of Variation 13.2 % (11.5-14.5); RDW Standard Deviation 46.7 fL (36.4-46.3); Red Blood Count 3.65 M/uL (4.20-5.40); White Blood Count 5.11 K/ul (4.8-10.8)
[2024-09-05 07:13] LABS: Potassium 4.6 mmol/L (3.5-5.1)
[2024-09-05 07:19] LABS: Creatinine Clr Calc Pharmacy 73.7 ml/min
--- NOTE | 2024-09-05 10:40 | Hospitalist Progress Note ---
Date of Service September 05, 2024 Assessment & Plan (1) Delirium: (2) Pancytopenia: (3) Acute UTI (urinary tract infection): (4) History of glioma: Neftali Ramirez is a 64 Y/O Female with PMH of hypothyroidism, hyperlipidemia, oligodendroma resection, seizure disorder, hx of CVA (september 2020) and Type II DM admitted for Delirium likely secondary to dehydration and possible UTI. Received 3 doses of ceftriaxone, but urine culture was negative. #Delirium/metabolic encephalopathy 2/2 to acute dehydration and UTI-improving Head CT 08/21: stable; CXR 08/21: mildly prominent bronchovascular markings unchanged. Ammonia level WNL Delirium precautions, encourage PO intake. PT/OT recommending rehab --> CM aware, working on obtaining insurance for patient. Recommend increasing activity #Pancytopenia and mild INR elevation New Thrombocytopenia since May, plt 90, recent CTAP 06/07/24: mild hepatomegaly, no findings of chronic liver disease. Plt 86 but no active bleeding. ? seizure meds as possible cause, dose increased 01/2024 - valproic acid level in range peripheral smear - no signs of myelodysplasia B12 significant elevated - B12 supplement held and can likely decrease frequency at discharge. Folate/Fe studies WNL Heme consulted -suspect medication induced by Depakote, check SPEP (WNL) quant immunoglobulins and serum free light chains to rule out plasma cell dyscrasia - mild elevations of kappa light chain but ratio not elevated Would hold aspirin if platelets less than 50 #Hyponatremia Mild - now 131 Serum osm 281, urine NA 24, urine osm 227 - likely SIADH, continue fluid restriction recheck BMP AM #Constipation small BM 08/30, but nothing documented since Miralax scheduled. Add scheduled colace. Continue prn mirlalax and milk of mag Discussed with RN - utilizing PRNs, encouraging walking in the halls TID #Hx of CVA/Seizure disorder/h/o Brain tumor resection - last neuro note says to continue aspirin, aspirin listed on allergy list and not on home med list (was prior to admission 05/2024) - son reports she is supposed to be taking this but never has it to fill her pill pack. Platelets stable 88 ASA 81mg qAM started Hx of oligodendroglioma removed in 2000 - seizure disorder since - takes Depakote , level WNL #hypothyroid - TSH here normal, continue Synthroid DVT prophylaxis: Hold in setting of thrombocytopenia and no acute process at this time, encourage ambulation , added SCDs Dispo: continued inpatient stay, trending Na levels Son updated by phone 08/31. LM 09/03 Admission and Anticipated Discharge Date Admission Date: August 21, 2024 Supervising Physician Co-Signing Physician Notes Attending Attestation - Chart reviewed, care plan d/w KASSIE Justin. I agree w/ the cisneros components of her documentation. Na level 131 today. Previous Urine Na was 24. Consider repeat Sosm, Uosm, Urine Na. Clifton Zimmerman MD Subjective patient seen lying in bed, no acute complaints. offered to go for a walk and she declined discussed with RN - will give more PRNs for bowels today Review of Systems Review of Systems: All systems reviewed & are unremarkable except as noted in Subjective Results & Data Results & Data Vital Signs (Past 12 Hours) Vital Signs Temp Pulse Resp BP Pulse Ox O2 Del Method 09/05/24 08:12 97.9 F 56 L 18 102/69 98 Room Air Laboratory Results bmp and cbc reviewed PG Care Time/CCT Total # of Minutes Spent Total Time Spent with Patient: Total time spent is greater than 50% in coordination of care (as documented) at patient's floor/unit and/or counseling patient: Coding Level of Care Code 77734 SUB INP/OBS CARE 2/35MIN Diagnoses Delirium R41.0 Pancytopenia D61.818 Acute UTI (urinary tract infection) N39.0 History of glioma Z87.898
[2024-09-05] MEDS: DOCUSATE SODIUM 100 MG CAP PO SCH (12:13)
[2024-09-06 12:15] LABS: Calcium 9.2 mg/dl (8.6-10.3); Potassium 4.3 mmol/L (3.5-5.1)
[2024-09-06 12:20] LABS: Creatinine Clr Calc Pharmacy 68.8 ml/min
--- NOTE | 2024-09-06 14:00 | Hospitalist Progress Note ---
Date of Service September 06, 2024 Assessment & Plan (1) Delirium: (2) Pancytopenia: (3) Acute UTI (urinary tract infection): (4) History of glioma: Plan Ashley is a 64 Y/O Female with PMH of hypothyroidism, hyperlipidemia, oligodendroma resection, seizure disorder, hx of CVA (september 2020) and Type II DM admitted for Delirium likely secondary to dehydration and possible UTI. Received 3 doses of ceftriaxone, but urine culture was negative. #Delirium/metabolic encephalopathy 2/2 to acute dehydration and UTI-improving Head CT 08/21: stable; CXR 08/21: mildly prominent bronchovascular markings unchanged. Ammonia level WNL Delirium precautions, encourage PO intake. PT/OT recommending rehab --> CM aware, working on obtaining insurance for patient. Recommend increasing activity Note: Patient lives with her , who is currently in acute rehab and will not be out until September 16. Patient does not have insurance. Notified by case management that patient may require to return home prior to discharge, as unable to return home alone. #Pancytopenia and mild INR elevation New Thrombocytopenia since May, plt 90, recent CTAP 06/07/24: mild hepatomegaly, no findings of chronic liver disease. Plt 86 but no active bleeding. ? seizure meds as possible cause, dose increased 01/2024 - valproic acid level in range peripheral smear - no signs of myelodysplasia B12 significant elevated - B12 supplement held and can likely decrease frequency at discharge. Folate/Fe studies WNL Heme consulted -suspect medication induced by Depakote, check SPEP (WNL) quant immunoglobulins and serum free light chains to rule out plasma cell dyscrasia - mild elevations of kappa light chain but ratio not elevated Would hold aspirin if platelets less than 50 #Hyponatremia Mild - now 130 Serum osm 281, urine NA 24, urine osm 227 - likely SIADH Increase fluid restriction from 1800 -> 1500mL on 09/06 Trend a.m. BMP #Constipation Last BM 09/05 Miralax scheduled. Colace scheduled. Continue prn mirlalax and milk of mag Discussed with RN - utilizing PRNs, encouraging walking in the halls TID #Hx of CVA/Seizure disorder/h/o Brain tumor resection - last neuro note says to continue aspirin, aspirin listed on allergy list and not on home med list (was prior to admission 05/2024) - son reports she is supposed to be taking this but never has it to fill her pill pack. Platelets stable at 86 ASA 81mg QAM restarted (again, hold aspirin if platelet count drops below 50) Hx of oligodendroglioma removed in 2000 - seizure disorder since - takes Depakote , level WNL #hypothyroid - TSH here normal, continue Synthroid DVT prophylaxis: Hold in setting of thrombocytopenia and no acute process at this time, encourage ambulation , added SCDs Dispo: continued inpatient stay, trending Na levels Son updated by phone 08/31. LM 09/03 Admission and Anticipated Discharge Date Admission Date: August 21, 2024 Subjective Mrs. Chanel is resting peacefully in bed this morning. She reports she slept well last night, and has been eating and drinking okay. No urinary symptoms such as burning with urination or suprapubic pain/tenderness. She has no new complaints at this time. ROS: Patient denies fever, chills, night sweats, dizziness/lightheadedness with standing, chest pain, chest palpitations, SOB, cough, abdominal pain, N/V/D, blood in the urine or stool, or burning with urination. Review of Systems Review of Systems: See HPI above Physical Exam Physical Exam: General: no acute distress; non-toxic appearing; frail appearing; cooperative; SpO2 97% on RA HEENT: normocephalic, atraumatic; no scleral icterus; PERRLA w/ EOMs intact; vision and hearing grossly intact Neck: supple; no lymphadenopathy; trachea midline Skin: warm, dry without signs of tenting; no cyanosis; no rashes, bruising, lesions, or erythema noted CV: chest wall NTP; RRR; S1/S2 normal; no murmurs/rubs/gallops; pulses intact and symmetric at radial, DP, and PT Lungs: no acute respiratory distress; symmetrical chest wall expansion; clear breath sounds across all lung mathis w/o adventitious sounds; no wheezing ABD: Soft, NTP; BS present; no rebound/guarding; no distention : Negative suprapubic tenderness MSK: no tics or fasciculations; nonpitting edema noted in the LEs b/l, nonerythematous Neuro: Patient is oriented to name, , and month of the year; not oriented to location; fluent speech; no focal deficits; patient reports sensation is intact as much in the upper extremities and lower extremity bilaterally Results & Data Results & Data Vital Signs (Past 12 Hours) Vital Signs Temp Pulse Resp BP Pulse Ox O2 Del Method 09/06/24 10:00 Room Air 09/06/24 08:08 36.7 C 66 18 105/65 97 Room Air PG Care Time/CCT Total # of Minutes Spent Total Time Spent with Patient: Total time spent is greater than 50% in coordination of care (as documented) at patient's floor/unit and/or counseling patient: Coding [place] [address] SUB INP/OBS CARE 2/35MIN Patient Type Established History Comprehensive Exam Comprehensive Medical Decision Making Moderate Complexity Diagnoses Delirium R41.0 Pancytopenia D61.818 Acute UTI (urinary tract infection) N39.0 History of glioma Z87.898
[2024-09-07 07:29] LABS: BUN Creatinine Ratio 14.1 (10-20); Basophils # (auto) 0.02 K/uL (0.00-0.20); Basophils % (auto) 0.4 %; Calcium 9.1 mg/dl (8.6-10.3); Creatinine Clr Calc Pharmacy 80.6 ml/min; Hematocrit (blood only) 31.3 % (37.0-47.0); Immature Granulocytes # (auto) 0.01 K/uL (0.01-0.20); Immature Granulocytes % (auto) 0.2 %; Lymphocytes # (auto) 1.69 K/uL (1.20-3.40); Lymphocytes % (auto) 34.4 %; Mean Corpuscular Hemoglobin 31.7 pg (25.0-34.0); Mean Corpuscular Hgb Conc 35.1 g/dL (32.0-36.0); Mean Corpuscular Volume 90.2 fL (80.0-100.0); Mean Platelet Volume 9.2 fL (9.4-12.4); Monocytes # (auto) 0.55 K/uL (0.11-0.59); Monocytes % (auto) 11.2 %; Neutrophils # (auto) 2.64 K/uL (1.40-6.50); Neutrophils % (auto) 53.8 %; Platelet Count 72 K/uL (130-400); Potassium 4.5 mmol/L (3.5-5.1); RDW Coefficient of Variation 13.3 % (11.5-14.5); RDW Standard Deviation 43.7 fL (36.4-46.3); Red Blood Count 3.47 M/uL (4.20-5.40); White Blood Count 4.91 K/ul (4.8-10.8)
--- NOTE | 2024-09-07 10:10 | Hospitalist Progress Note ---
Date of Service September 07, 2024 Assessment & Plan (1) Delirium: (2) Pancytopenia: (3) Acute UTI (urinary tract infection): (4) History of glioma: Plan Ashley is a 64 Y/O Female with PMH of hypothyroidism, hyperlipidemia, oligodendroma resection, seizure disorder, hx of CVA (september 2020) and Type II DM admitted for Delirium likely secondary to dehydration and possible UTI. Received 3 doses of ceftriaxone, but urine culture was negative. #Delirium/metabolic encephalopathy 2/2 to acute dehydration and UTI-improving Head CT 08/21: stable; CXR 08/21: mildly prominent bronchovascular markings unchanged. Ammonia level WNL Delirium precautions, encourage PO intake. PT/OT recommending rehab --> CM aware, working on obtaining insurance for patient. Recommend increasing activity Note: Patient lives with her , who is currently in acute rehab and will not be out until September 16. Patient does not have insurance. Notified by case management that patient may require to return home prior to discharge, as unable to return home alone. #Pancytopenia and mild INR elevation New Thrombocytopenia since May, plt 90, recent CTAP 06/07/24: mild hepatomegaly, no findings of chronic liver disease. Plt 86 but no active bleeding. ? seizure meds as possible cause, dose increased 01/2024 - valproic acid level in range peripheral smear - no signs of myelodysplasia B12 significant elevated - B12 supplement held and can likely decrease frequency at discharge. Folate/Fe studies WNL Heme consulted -suspect medication induced by Depakote, check SPEP (WNL) quant immunoglobulins and serum free light chains to rule out plasma cell dyscrasia - mild elevations of kappa light chain but ratio not elevated Would hold aspirin if platelets less than 50 - recheck INR in a.m., if still elevated try nutritional replacement with vitamin D 5 mg p.o. x 3 days - would make outpatient neurology referral so that she can reestablish with someone, it has been years since a seizure and may be prudent to replace the valproic acid with another antiepileptic or try off of AEDs #Hyponatremia Mild - remains 130, unlikely to be symptomatic however she may be more sensitive to hyponatremia because of her previous brain surgery Serum osm 281, urine NA 24, urine osm 227 - likely SIADH Increased fluid restriction from 1800 -> 1500mL on 09/06 I think that fluid restriction is fairly unlikely to be effective, added twice daily protein supplements per RD, repeat urine sodium today, normal salt diet #Constipation Last BM 09/05 Miralax scheduled. Colace scheduled. Continue prn mirlalax and milk of mag Discussed with RN - utilizing PRNs, encouraging walking in the halls TID #Hx of CVA/Seizure disorder/h/o Brain tumor resection - last neuro note says to continue aspirin, aspirin listed on allergy list and not on home med list (was prior to admission 05/2024) - son reports she is supposed to be taking this but never has it to fill her pill pack. Platelets stable at 86 ASA 81mg QAM restarted (again, hold aspirin if platelet count drops below 50) Hx of oligodendroglioma removed in 2000 - seizure disorder since - takes Depakote , level WNL and ammonia level was normal - see above #hypothyroid - TSH here normal, continue Synthroid DVT prophylaxis: fairly low risk since no acute illness currently, continue SCDs, avoiding chemoprophylaxis because of thrombocytopenia Dispo: continued inpatient stay, trending Na levels Son updated by phone 08/31. LM 09/03 Admission and Anticipated Discharge Date Admission Date: August 21, 2024 Subjective No complaints today has been working regularly with PT and OT. No chest pain shortness of breath abdominal pain or nausea. She did have constipation but had a moderate BM recorded on 09/05.She cannot recall having had a seizure for years and is not currently following with a neurologist that she can remember. Physical Exam 2 Physical Exam: PHYSICAL EXAMINATION Last 24h vital signs reviewed, see documentation in flowsheet General: comfortable appearing, no distress HEENT: Normocephalic, atraumatic, pupils round and equal, sclerae anicteric, no conjunctival injection, moist mucus membranes Lungs: Normal respiratory effort. Clear to auscultation bilaterally. No RRW Heart: Regular rate and rhythm, no murmurs. No JVD Abdomen: Soft, nontender, nondistended. Bowel sounds present. Extremities: Warm, dry, well-perfused. No extremity edema. Neuro: Alert and oriented x hospital and basic situation, forgetful, gives vague verbal responses, face symmetric, moves 4 extremities well Psych: Normal affect and behavior Results & Data Results & Data Vital Signs (Past 12 Hours) Vital Signs Temp Pulse Resp BP Pulse Ox O2 Del Method 09/07/24 07:06 36.3 C L 82 16 91/60 L 97 Room Air Laboratory Results 09/07/24 06:41 09/07/24 06:41 PG Care Time/CCT Total # of Minutes Spent Total Time Spent with Patient: Total time spent is greater than 50% in coordination of care (as documented) at patient's floor/unit and/or counseling patient: Coding Level of Care Code 78614 SUB INP/OBS CARE 2/35MIN Diagnoses Delirium R41.0 Pancytopenia D61.818 Acute UTI (urinary tract infection) N39.0 History of glioma Z87.898
--- NOTE | 2024-09-08 16:24 | Hospitalist Progress Note ---
Date of Service September 08, 2024 Assessment & Plan (1) Delirium: (2) Pancytopenia: (3) Acute UTI (urinary tract infection): (4) History of glioma: Neftali Ramirez is a 64 Y/O Female with PMH of hypothyroidism, hyperlipidemia, oligodendroma resection, seizure disorder, hx of CVA (september 2020) and Type II DM admitted for Delirium likely secondary to dehydration and possible UTI. Received 3 doses of ceftriaxone, but urine culture was negative. #Delirium/metabolic encephalopathy 2/2 to acute dehydration and UTI-improving Head CT 08/21: stable; CXR 08/21: mildly prominent bronchovascular markings unchanged. Ammonia level WNL Delirium precautions, encourage PO intake. PT/OT recommending rehab --> CM aware, working on obtaining insurance for patient. Recommend increasing activity Patient to go to a [facility] 09/09. #Pancytopenia and mild INR elevation New Thrombocytopenia since May, plt 90 recent CTAP 06/07/24: mild hepatomegaly, no findings of chronic liver disease. seizure meds as possible cause, dose increased 01/2024 - valproic acid level in range peripheral smear - no signs of myelodysplasia B12 significant elevated - B12 supplement held and can likely decrease frequency at discharge. Folate/Fe studies WNL Heme consulted -suspect medication induced by Depakote, check SPEP (WNL) quant immunoglobulins and serum free light chains to rule out plasma cell dyscrasia - mild elevations of kappa light chain but ratio not elevated Would hold aspirin if platelets less than 50 would make outpatient neurology referral so that she can reestablish with someone, it has been years since a seizure and may be prudent to replace the valproic acid with another antiepileptic or try off of AEDs #Hyponatremia Mild - remains 130, unlikely to be symptomatic however she may be more sensitive to hyponatremia because of her previous brain surgery Serum osm 281, urine NA 24, urine osm 227 - likely SIADH Increased fluid restriction from 1800 -> 1500mL on 09/06 Added twice daily protein supplements per RD #Constipation Miralax scheduled. Colace scheduled. Continue prn mirlalax and milk of mag #Hx of CVA/Seizure disorder/h/o Brain tumor resection last neuro note says to continue aspirin, aspirin listed on allergy list and not on home med list (was prior to admission 05/2024) - son reports she is supposed to be taking this but never has it to fill her pill pack. ASA 81mg QAM (again, hold aspirin if platelet count drops below 50) Hx of oligodendroglioma removed in 2000 - seizure disorder since - takes Depakote , level WNL and ammonia level was normal - see above #hypothyroid - TSH here normal, continue Synthroid DVT prophylaxis: fairly low risk since no acute illness currently, continue S CDs, avoiding chemoprophylaxis because of thrombocytopenia Dispo: continued inpatient stay, trending Na levels Patient to be discharged 09/09 to [facility]. Admission and Anticipated Discharge Date Admission Date: August 21, 2024 Subjective Patient seen and examined this morning. Patient denied any complaints. She reports to be feeling well Physical Exam Physical Exam: General: no acute distress; non-toxic appearing; well-nourished; cooperative HEENT: normocephalic, atraumatic; no scleral icterus; PERRLA w/ EOMs intact; vision and hearing grossly intact Skin: warm, dry without signs of tenting; no cyanosis; no rashes, bruising, lesions, or erythema noted Lungs: no acute respiratory distress; symmetrical chest wall expansion Neuro: A&Ox3; normal mood and affect; fluent speech; no focal deficits; sensation grossly intact in the LEs b/l Results & Data Results & Data Vital Signs (Past 12 Hours) Vital Signs Temp Pulse Resp BP Pulse Ox O2 Del Method 09/08/24 15:12 36.7 C 70 16 105/63 94 Room Air 09/08/24 07:24 Room Air 09/08/24 07:15 36.5 C 61 16 94/62 L 93 Room Air PG Care Time/CCT Total # of Minutes Spent Total Time Spent with Patient: Total time spent is greater than 50% in coordination of care (as documented) at patient's floor/unit and/or counseling patient: Coding Level of Care Code 41180 SUB INP/OBS CARE 2/35MIN Diagnoses Delirium R41.0 Pancytopenia D61.818 Acute UTI (urinary tract infection) N39.0 History of glioma Z87.898
[2024-09-08 21:07] VITALS: O2SAT 97
[2024-09-09 07:42] LABS: Basophils # (auto) 0.02 K/uL (0.00-0.20); Basophils % (auto) 0.5 %; Hemoglobin 10.5 g/dl (12.0-16.0); Immature Granulocytes # (auto) 0.02 K/uL (0.01-0.20); Immature Granulocytes % (auto) 0.5 %; Lymphocytes # (auto) 1.62 K/uL (1.20-3.40); Lymphocytes % (auto) 38.2 %; Mean Corpuscular Hemoglobin 31.7 pg (25.0-34.0); Mean Corpuscular Volume 90.6 fL (80.0-100.0); Mean Platelet Volume 9.1 fL (9.4-12.4); Monocytes # (auto) 0.53 K/uL (0.11-0.59); Monocytes % (auto) 12.5 %; Neutrophils # (auto) 2.05 K/uL (1.40-6.50); Neutrophils % (auto) 48.3 %; Platelet Count 82 K/uL (130-400); RDW Coefficient of Variation 13.2 % (11.5-14.5); RDW Standard Deviation 43.7 fL (36.4-46.3); Red Blood Count 3.31 M/uL (4.20-5.40); White Blood Count 4.24 K/ul (4.8-10.8)
[2024-09-09 08:07] VITALS: BP 100/66; PULSE 52; RESP 15; TEMP 97.9
[2024-09-09 08:13] LABS: Calcium 8.8 mg/dl (8.6-10.3)
--- NOTE | 2024-09-09 09:27 | Discharge Summary ---
Discharge Summary Date of Service September 09, 2024 Principal Dx & Hospital Course #1 = Principal Diagnosis (1) Delirium: (2) Pancytopenia: (3) Acute UTI (urinary tract infection): (4) History of glioma: Neftali Ramirez is a 64 Y/O Female with PMH of hypothyroidism, hyperlipidemia, oligodendroma resection, seizure disorder, hx of CVA (september 2020) and Type II DM admitted for Delirium likely secondary to dehydration and possible UTI. Received 3 doses of ceftriaxone, but urine culture was negative. #Delirium/metabolic encephalopathy 2/2 to acute dehydration and UTI Head CT 09/07 negative, chest x-ray 08/21 mildly prominent bronchovascular markings unchanged. Ammonia level within normal limits Patient discharged to personal-alf #Pancytopenia and mild INR elevation New Thrombocytopenia since May, plt 90 recent CTAP 06/07/24: mild hepatomegaly, no findings of chronic liver disease. seizure meds as possible cause, dose increased 01/2024 - valproic acid level in range peripheral smear - no signs of myelodysplasia B12 elevated --> hold on discharge, recommend repeat B12 level outpatient and reassess need for supplementation Folate/Fe studies WNL. Heme consulted -suspect medication induced by Depakote, SPEP (WNL) quant immunoglobulins and serum free light chains to rule out plasma cell dyscrasia - mild elevations of kappa light chain but ratio not elevated --> follow up outpatient. Would hold aspirin if platelets less than 50 Outpatient referral made to neurology --> patient has not had a seizure in years, may be prudent to replace the valproic acid w/ another antiepileptic or try off of AEDs #Hyponatremia Mild - remains 130, unlikely to be symptomatic however she may be more sensitive to hyponatremia because of her previous brain surgery Serum osm 281, urine NA 24, urine osm 227 - likely SIADH 1500mL fluid restriction on discharge. Continue protein supplements on discharge. #Constipation Miralax scheduled. Colace scheduled. #Hx of CVA/Seizure disorder/h/o Brain tumor resection last neuro note says to continue aspirin, aspirin listed on allergy list and not on home med list (was prior to admission 05/2024) - son reports she is supposed to be taking this but never has it to fill her pill pack. ASA 81mg QAM (again, hold aspirin if platelet count drops below 50) Hx of oligodendroglioma removed in 2000 - seizure disorder since - takes Depakote , level WNL and ammonia level was normal - see above #hypothyroid - TSH here normal, continue Synthroid Patient discharged to [facility] 09/09 Admission HPI Per Admitting Provider History is extremely limited from the patientwhenever I am in the room she initially does not wake up, but she then awakens to gentle physical stimulus. She seems quite confused, although she denies pain, denies abdominal pain, denies dysuria, but also her HPI and review of systems I would take at only intermediate/proximal value given her confusion. She is able to express that her is in the hospital. I was able to call her son Fredo who noted that for the last several days she has been getting progressively more confused, and then today she had incontinence (fecal) as well as acting very strangely such as sitting on the floor and not really seeming coherent. He noted that she has been delirious before and therefore had her taken to the hospital for further evaluation. He notes last several days her p.o. intake has been poor. Her apparently was just hospitalized at [facility] and the son notes that he was going to [facility] - [facility] notes that the patient and her rely on each other, implying that may be part of why she is not doing well as well. Discharge Exam General: no acute distress; non-toxic appearing; well-nourished; cooperative HEENT: normocephalic, atraumatic; no scleral icterus; PERRLA w/ EOMs intact; vision and hearing grossly intact Skin: warm, dry without signs of tenting; no cyanosis; no rashes, bruising, lesions, or erythema noted Lungs: no acute respiratory distress; symmetrical chest wall expansion Neuro: A&Ox3; normal mood and affect; fluent speech; no focal deficits; sensation grossly intact in the LEs b/l Discharge Plan Discharge Items Patient Disposition: [facility] Reason For Visit: DELIRIUM Discharge Diagnosis: Metabolic Encephalopathy Activity: Resume your previous activity Non-emergency contact: Primary Care Provider Call non-emergency contact if: you have any medication questions, your symptoms worsen and your pain is not controlled Follow-up/Referrals: Aleshia Morton MD [Primary Care Provider] - Diet: Regular Fluids: 1500ml (6 cups) Addtl Attending Provider Instructions: Mrs. Chanel, You were recently hospitalized due to an increase of confusion. You were found to have a UTI. You were also found to have a new onset of low platelets since May. You are going to a personal alf while you await for your to be discharged from rehab. Please see recommendations below regarding your discharge. Please hold your B12 supplementation until seen by your PCP. Please follow up with hematology outpatient. Please re-establish with a neurologist upon discharge to discuss your seizure medications as this could be contributing to the low platelets. Please stay on a fluid restriction of 1500mL per day. Continue protein supplements on discharge. Continue Miralax and Colace for constipation. Please follow up with your PCP within 1-2 weeks of discharge. If you develop any fevers, chills, chest pain, shortness of breath please report to the ER for further care. [facility] [employer] Katja Adames PA-C Pending Studies at Discharge: No Stand-Alone Forms: My [employer], Smoking Cessation Skilled Items Patient informed of condition?: Yes DNR: No Discharge Level of Care: Other Communicable Disease: No Discharge Prognosis: Stable Lines: None Urinary Catheter: No Medications and DC Order Prescriptions: New polyethylene glycol 3350 [Miralax] 17 gram Powder In Packet 17 g PO DAILY Qty: 30 0RF docusate sodium 100 mg Capsule 100 mg PO BID Qty: 60 0RF Continued levothyroxine 50 mcg tablet 50 mcg PO DAILY Qty: 90 3RF atorvastatin 40 mg tablet See Rx Instructions .ROUTE .COMPLEX Qty: 90 0RF Dose Instruction: Take 1 tablet by mouth once daily Rx Instructions: Take 1 tablet by mouth once daily potassium chloride 20 mEq tablet extended release See Rx Instructions .ROUTE .COMPLEX Qty: 90 0RF Dose Instruction: Take 1 tablet by mouth once daily Rx Instructions: Take 1 tablet by mouth once daily divalproex 500 mg tablet,delayed release (DR/EC) 500 mg PO BID Qty: 180 3RF Rx Instructions: Last filled 01/2024 x90 day supply. Original Directions: 500mg by mouth twice daily acetaminophen [Tylenol] 325 mg Tablet 650 mg PO Q6 PRN (Reason: Fever Or Pain) Rx Instructions: Unable to verify OTC meds at this date/time. melatonin 3 mg tablet 3 mg PO HS Qty: 30 0RF Rx Instructions: Unable to verify OTC meds at this date/time. thiamine HCl (vitamin B1) 100 mg tablet 200 mg PO BIDM Rx Instructions: Unable to verify OTC meds at this date/time. clotrimazole-betamethasone 1-0.05 % cream 1 applic topical BID PRN (Reason: Skin Irritation) omeprazole 20 mg capsule,delayed release(DR/EC) 0 mg PO DAILY Rx Instructions: Last filled 01/2024 x90 day supply. Original Directions: 20mg by mouth daily montelukast [Singulair] 10 mg tablet 0 mg PO DAILY Rx Instructions: Last filled 03/2024 x30 day supply. Original Directions: 10mg by mouth once daily Held cyanocobalamin (vitamin B-12) 500 mcg tablet 1,000 mcg PO QDL Hold Instructions: Resume on 10/08/24. until seen by PCP Rx Instructions: Unable to verify OTC meds at this date/time. Discharge Orders: Discharge Order (Routine); Ordered 09/09/24 Ordered By: Katja Moseley/Other Patient Handouts: UTIs Admission Data Admit Date/Time: 08/21/24 17:52 Attending Provider: Edgard De La Garza Admit Provider: Herman Steve Primary Care Provider: Aleshia Morton Other Providers: Herman Steve; Norman Elise; Cindy Ferrara Other Interventions: Discharge Summary Assessment (RN) Last Done: 09/09/24 10:25 Hospital Stay Data Consultations 08/21/24 17:34 ED Decision to Admit Stat 08/31/24 11:41 Consult Hematology Routine Diagnostic Imagining Performed 08/21/24 15:31 CT head/brain wo con Stat Pending Results Patient Have Any Pending Studies at Discharge: No Discharge Instructions Given to Patient (Per Discharging Provider) Mrs. Chanel, You were recently hospitalized due to an increase of confusion. You were found to have a UTI. You were also found to have a new onset of low platelets since May. You are going to a personal alf while you await for your to be discharged from rehab. Please see recommendations below regarding your discharge. Please hold your B12 supplementation until seen by your PCP. Please follow up with hematology outpatient. Please re-establish with a neurologist upon discharge to discuss your seizure medications as this could be contributing to the low platelets. Please stay on a fluid restriction of 1500mL per day. Continue protein supplements on discharge. Continue Miralax and Colace for constipation. Please follow up with your PCP within 1-2 weeks of discharge. If you develop any fevers, chills, chest pain, shortness of breath please report to the ER for further care. [facility] [employer] Katja Adames PA-C Total Time Total Time Spent Total Time Spent (In Minutes): 45 Total Time Includes: Examination of the Patient, Discharge Planning and Medication Reconciliation Coding Level of Care Code 85390 INP/OBS DISCH >30 MIN Diagnoses Delirium R41.0 Pancytopenia D61.818 Acute UTI (urinary tract infection) N39.0 History of glioma Z87.898
== END 2024-09-09 10:45 | disposition home or self-care (01) | DRG 689 ==
LOC: SUATTDRO → ED 15:20 → SUATTDRO 17:52 → EDINP 17:52 → 3N 20:08

== ENCOUNTER 2024-09-16 13:48 | Inpatient (IN) ==
--- NOTE | 2024-09-16 14:12 | Emergency Department Note ---
Impression & Plan Acute confusion, Elevated lactic acid level, Acute hyponatremia, Hypomagnesemia ED Provider Note HISTORY OF PRESENT ILLNESS: Patient is a 64-year-old female presenting with confusion. Patient reportedly just finished a course of antibiotics for urinary tract infection. Patient presents from [facility] and reportedly has not been acting herself today. She reportedly had a episode of delirium secondary to the antibiotics and staff at the facility reports that it had not gotten any better. Patient is alert to self only. Patient has no complaints on arrival to the ER, but she does not answer questions reliably. She does acknowledge you when you talk to her, but she only answers simple yes and no questions. ROS: as above PHYSICAL EXAM: Constitutional: Patient appears in no acute distress. HENT: Head: Normocephalic and atraumatic. Eyes: EOMI, PERRL Mouth/Throat: Mucous membranes moist. Neck: Trachea midline. Neck supple. Cardiovascular: RRR, No murmurs, rubs or gallops. Intact distal pulses. Pulmonary/Chest: No respiratory distress. Breath sounds clear and equal bilaterally. No wheezes or rales. Abdominal: Abdomen soft, no tenderness, rebound or guarding. Musculoskeletal: No tenderness or deformity noted. Lymphedema of bilateral lower extremities Skin: Warm and dry. No rash, erythema, pallor or cyanosis Neurological: Alert but confused and does not answer most questions. CN II-XII grossly intact, moving all extremities equally and fully. MDM: - Vitals signs showed borderline fever and tachycardia. - History obtained via EMS, given patient's confusion. History as above. - Chronic conditions affecting care: DM-2; HLD; hypothyroidism - Differential diagnoses include, but are not limited to: UTI; CVA; intracranial hemorrhage; ACS; electrolyte abnormalities - Order placed for continuous cardiac monitoring. At this time, monitor showed rate of 81 bpm with normal sinus rhythm, per my interpretation. - External medical records reviewed. Discharge summary dated 09/09/2024 was reviewed. Patient was admitted at that time secondary to delirium and metabolic encephalopathy due to acute dehydration and UTI. - EKG image interpreted by myself showed normal sinus rhythm. Rate 85 bpm. QT 368. No acute ischemic changes. - Laboratory workup interpreted by myself showed normal WBC; chronic anemia; chronic thrombocytopenia (plt 88); normal PT/INR; elevated lactate (2.2); hyponatremia (Na 129); hypomagnesemia (Mg 1.6); normal AST/ALT; normal troponin; normal BNP; normal procalcitonin; normal TSH - CXR image reviewed by myself negative for pneumonia, per my interpretation - COVID/flu/RSV negative - UA obtained via straight cath shows bacteria and ketones. However, no WBCs or nitrite positive. - Blood cultures obtained. - Patient given 1L NS and 1g IV magnesium in ER. - Discussion was had with patient case coordinator about patient's case and need for admission - Hospitalist consulted for admission - [facility] ASSESSMENT AND PLAN: Diagnosis: Acute confusion; elevated lactic acid level; acute hyponatremia; hypomagnesemia Plan: Admit Past Med/Surg History Problem List (Updated 09/16/24 @ 15:18 by Kimberli Ham MD) Hypomagnesemia (Acute) Acute hyponatremia (Acute) Elevated lactic acid level (Acute) Acute confusion (Acute) Dehydration Delirium Generalized weakness (Acute) Type 2 diabetes mellitus (Chronic) Hypothyroidism (Chronic) Hyperlipidemia (Chronic) B12 deficiency (Chronic) Medical History (Updated 09/16/24 @ 15:18 by Kimberli Ham MD) Acute encephalopathy Allergic rhinitis Chronic sinusitis Acute hyponatremia Acute confusion Fecal incontinence Recurrent herpes labialis Weakness Generalized weakness Diarrhea Ambulatory dysfunction Esophageal reflux Seizure disorder Hypomagnesemia Vitamin D deficiency History of CVA (cerebrovascular accident) lacunar infarct 09/2020>STILL HAS NUMBNESS IN RT HAND AND RT SIDE OF FACE Multiple pulmonary nodules stable on imaging - no further workup required Hx of brain cancer Right temporal glioma, s/p surgery, 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 Surgical History History of cataract surgery right Hx of colonoscopy Hx of tubal ligation Hx of section Hx of brain surgery 2000-[facility] Family History Grandmother Family history of diabetes mellitus Father Myocardial infarction Other No significant family history Denies family history of Ovarian cancer Prostate cancer Breast cancer Colorectal cancer Social History Smoking Status: Never smoker Tobacco Type: Smokeless Tobacco (Dip or Chew) Second Hand Exposure: No; Do You Dip or Chew Tobacco: No; Hx Alcohol Use: No Hx Substance Use: No Preferred Language: Armenian Communication Ability: Effective Communication Ability Comment: TROUBLE HEARING OUT OF RIGHT SIDE Triple Valve Tester Required: No Beliefs That Will Affect Care: None marital status: Current Living Situation: Spouse current occupational status: employed 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 Childhood Exposure to Second-Hand Smoke: Yes Diet: regular caffeine: Yes (diet soda) Dental Care, Regularly: No Physical Activity Frequency: Does not Exercise Seatbelt Use: always Sunscreen Use: Yes Assistive Devices: Cane, Stair Lift and Walker Allergies Allergies Allergy/AdvReac Type Severity Reaction Status Date / Time Sulfa (Sulfonamide Allergy Intermediate ITCHING, Verified 06/07/24 09:57 Antibiotics) BURNING Home Meds Home Medications Medication Instructions Recorded Confirmed acetaminophen 325 mg tablet 650 mg PO Q6 PRN Fever Or Pain 01/19/23 09/16/24 (Tylenol) montelukast 10 mg tablet 10 mg PO DAILY 09/12/24 09/16/24 (Singulair) omeprazole 20 mg capsule,delayed 20 mg PO DAILY 09/12/24 09/16/24 release Antifungal Cream 1 applic topical BID 09/16/24 09/16/24 atorvastatin 40 mg tablet 40 mg PO DAILY 09/16/24 09/16/24 miconazole nitrate 2 % topical 1 applic topical BID 09/16/24 09/16/24 powder (Antifungal (miconazole)) miconazole nitrate 2 % topical 1 applic topical UD PRN skin 09/16/24 09/16/24 powder (Antifungal (miconazole)) breakdown potassium chloride 20 mEq 20 meq PO QAM 09/16/24 09/16/24 tablet,extended release Previous Rx's Medication Instructions Recorded divalproex 500 mg tablet,delayed 500 mg PO BID #180 tabs 02/05/24 release levothyroxine 50 mcg tablet 50 mcg PO DAILY #90 tabs 03/30/24 docusate sodium 100 mg capsule 100 mg PO BID #60 caps 09/09/24 polyethylene glycol 3350 17 gram 17 g PO DAILY #30 ea 09/09/24 oral powder packet (Miralax) Results & Data (ED) Vital Signs Vital Signs - 24 hr 09/16/24 13:45 09/16/24 13:45 09/16/24 13:45 Temperature 37.9 C H 37.9 C H Temperature Source Oral Oral Pulse Rate 86 Pulse Rate [Ear Lobe] 86 Pulse Rhythm Regular Pulse Rhythm [Ear Lobe] Regular Pulse Strength Normal Pulse Strength [Ear Lobe] Normal Respiratory Rate 18 18 Respiratory Effort / Characteristics Non-Labored Spontaneous Non-Labored Spontaneous Respiratory Depth Normal Normal Blood Pressure 115/67 Blood Pressure [Left Arm] 115/67 Blood Pressure Mean 83 Blood Pressure Mean [Left Arm] 83 Blood Pressure Position Sitting Blood Pressure Position [Left Arm] Lying Pulse Oximetry 97 97 Oxygen Delivery Method Room Air Room Air Room Air Oxygen Flow Rate 0 Sepsis Recent Fever Within 48 Hours Yes Sepsis New/Unexplained Change in Mental Status Yes Sepsis Action Taken by Nursing No Action Required Oxygen Flow Rate - Titration 97 09/16/24 14:21 09/16/24 14:55 09/16/24 15:00 Temperature Temperature Source Pulse Rate 86 99 H Pulse Rate [Ear Lobe] 81 Pulse Rhythm Regular Pulse Rhythm [Ear Lobe] Pulse Strength Pulse Strength [Ear Lobe] Respiratory Rate 18 22 Respiratory Effort / Characteristics Respiratory Depth Blood Pressure Blood Pressure [Left Arm] 113/77 Blood Pressure Mean Blood Pressure Mean [Left Arm] 89 Blood Pressure Position Blood Pressure Position [Left Arm] Pulse Oximetry 97 96 Oxygen Delivery Method Room Air Room Air Oxygen Flow Rate Sepsis Recent Fever Within 48 Hours Sepsis New/Unexplained Change in Mental Status Sepsis Action Taken by Nursing Oxygen Flow Rate - Titration Laboratory Data 09/16/24 13:55 09/16/24 13:55 Lab Results 09/16/24 09/16/24 09/16/24 Range/Units 13:55 13:56 14:04 WBC 9.62 (4.8-10.8) K/ul RBC 3.67 L (4.20-5.40) M/uL Hgb 11.9 L (12.0-16.0) g/dl Hct 33.8 L (37.0-47.0) % MCV 92.1 (80.0-100.0) fL MCH 32.4 (25.0-34.0) pg MCHC 35.2 (32.0-36.0) g/dL RDW Std Deviation 45.6 (36.4-46.3) fL RDW Coeff of Juliet 13.5 (11.5-14.5) % Plt Count 88 L (130-400) K/uL MPV 8.8 L (9.4-12.4) fL Immature Gran % (Auto) 0.3 % Neut % (Auto) 78.4 % Lymph % (Auto) 8.4 % Clare % (Auto) 12.7 % Eos % (Auto) 0.0 % Baso % (Auto) 0.2 % Neut # (Auto) 7.54 H (1.40-6.50) K/uL Lymph # (Auto) 0.81 L (1.20-3.40) K/uL Clare # (Auto) 1.22 H (0.11-0.59) K/uL Eos # (Auto) 0.00 (0.00-0.50) K/uL Baso # (Auto) 0.02 (0.00-0.20) K/uL Immature Gran # (Auto) 0.03 (0.01-0.20) K/uL PT 10.7 (9.0-12.0) Seconds INR 1.0 (0.9-1.1) Sodium 129 L (136-145) mmol/L Potassium 4.6 (3.5-5.1) mmol/L Chloride 93 L (98-107) mmol/L Carbon Dioxide 31 (21-32) mmol/L Anion Gap 5 (3-11) BUN 10 (6-23) mg/dl Creatinine 0.61 (0.6-1.2) mg/dl Est Cr Clr Drug Dosing 86.8 ml/min eGFR 98.54 BUN/Creatinine Ratio 16.4 (10-20) Glucose 142 H (70-99(Fasting)) mg/dl Lactate 2.2 H* (0.4-2.0) mmol/L Calcium 9.7 (8.6-10.3) mg/dl Magnesium 1.6 L (1.7-2.4) mg/dl Total Bilirubin 0.9 (0.2-1.0) mg/dl AST 14 (13-39) U/L ALT 15 (7-52) U/L Alkaline Phosphatase 50 (34-104) U/L Troponin I High Sens < 2.3 (0-14) pg/ml B-Natriuretic Peptide 63 (0-100) pg/ml Total Protein 7.1 (6.0-8.3) gm/dl Albumin 4.0 (3.4-5.0) gm/dl Globulin 3.1 (2.5-4.0) gm/dl Albumin/Globulin Ratio 1.3 (0.9-2) Procalcitonin 0.05 (0-0.5) ng/ml TSH 2.205 (0.300-4.500) uIu/ml Urine Color Urine Appearance (Clear) Urine pH (4.5-7.5) Ur Specific [place] (1.000-1.030) Urine Protein (Negative) Urine Glucose (UA) (Negative) Urine Ketones (Negative) Urine Blood (Negative) Urine Nitrite (Negative) Urine Bilirubin (Negative) Urine Urobilinogen (Negative) Ur Leukocyte Esterase (Negative) Urine WBC (Auto) (0-5) /hpf Urine RBC (Auto) (0-2) /hpf U Hyaline Cast (Auto) (0-2) /lpf U Epithel Cells (Auto) (0-2) /hpf Urine Bacteria (Auto) (None Seen) SARS-CoV-2 (PCR) NEGATIVE (Negative) Influenza Type A (PCR) Negative (Neg) Influenza Type B (PCR) Negative (Neg) RSV (RT-PCR) Negative (Neg) 09/16/24 Range/Units 14:10 WBC (4.8-10.8) K/ul RBC (4.20-5.40) M/uL Hgb (12.0-16.0) g/dl Hct (37.0-47.0) % MCV (80.0-100.0) fL MCH (25.0-34.0) pg MCHC (32.0-36.0) g/dL RDW Std Deviation (36.4-46.3) fL RDW Coeff of Juliet (11.5-14.5) % Plt Count (130-400) K/uL MPV (9.4-12.4) fL Immature Gran % (Auto) % Neut % (Auto) % Lymph % (Auto) % Clare % (Auto) % Eos % (Auto) % Baso % (Auto) % Neut # (Auto) (1.40-6.50) K/uL Lymph # (Auto) (1.20-3.40) K/uL Clare # (Auto) (0.11-0.59) K/uL Eos # (Auto) (0.00-0.50) K/uL Baso # (Auto) (0.00-0.20) K/uL Immature Gran # (Auto) (0.01-0.20) K/uL PT (9.0-12.0) Seconds INR (0.9-1.1) Sodium (136-145) mmol/L Potassium (3.5-5.1) mmol/L Chloride (98-107) mmol/L Carbon Dioxide (21-32) mmol/L Anion Gap (3-11) BUN (6-23) mg/dl Creatinine (0.6-1.2) mg/dl Est Cr Clr Drug Dosing ml/min eGFR BUN/Creatinine Ratio (10-20) Glucose (70-99(Fasting)) mg/dl Lactate (0.4-2.0) mmol/L Calcium (8.6-10.3) mg/dl Magnesium (1.7-2.4) mg/dl Total Bilirubin (0.2-1.0) mg/dl AST (13-39) U/L ALT (7-52) U/L Alkaline Phosphatase (34-104) U/L Troponin I High Sens (0-14) pg/ml B-Natriuretic Peptide (0-100) pg/ml Total Protein (6.0-8.3) gm/dl Albumin (3.4-5.0) gm/dl Globulin (2.5-4.0) gm/dl Albumin/Globulin Ratio (0.9-2) Procalcitonin (0-0.5) ng/ml TSH (0.300-4.500) uIu/ml Urine Color Dark Yellow Urine Appearance Clear (Clear) Urine pH 6.5 (4.5-7.5) Ur Specific [place] 1.019 (1.000-1.030) Urine Protein Negative (Negative) Urine Glucose (UA) Negative (Negative) Urine Ketones 1+ H (Negative) Urine Blood Negative (Negative) Urine Nitrite Negative (Negative) Urine Bilirubin Negative (Negative) Urine Urobilinogen Negative (Negative) Ur Leukocyte Esterase 1+ H (Negative) Urine WBC (Auto) 0-5 (0-5) /hpf Urine RBC (Auto) 0-2 (0-2) /hpf U Hyaline Cast (Auto) 0-2 (0-2) /lpf U Epithel Cells (Auto) 11-20 H (0-2) /hpf Urine Bacteria (Auto) 1+ H (None Seen) SARS-CoV-2 (PCR) (Negative) Influenza Type A (PCR) (Neg) Influenza Type B (PCR) (Neg) RSV (RT-PCR) (Neg) Administered Medications Discontinued Medications Sodium Chloride (Nss) 1,000 mls @ 999 mls/hr IV .[id number] ONE Stop: 09/16/24 15:58 Last Admin: 09/16/24 15:13 Dose: 999 mls/hr Documented By: OSMEL Magnesium Sulfate/Dextrose (Magnesium Sulfate / D5w) 1 gm in 100 mls @ 100 mls/hr IV NOW STA Stop: 09/16/24 15:57 Last Admin: 09/16/24 15:13 Dose: 100 mls/hr Documented By: OSMEL Imaging Data Radiologist's Impression: Chest X-Ray 09/16/24 14:06 XR chest 1V portable CLINICAL HISTORY: confusion COMPARISON STUDY: 08/21/2024 FINDINGS: Stable mild cardiomegaly without pulmonary vascular congestion. Inspiration is shallow. No effusion, consolidation, or pneumothorax. IMPRESSION: No acute findings. ACT 112: Negative or not required by law. Electronically signed by: Derrick Sy M.D. 09/16/2024 2:[address] 09/16/24 14:06 CT SCAN OF THE BRAIN WITHOUT IV CONTRAST CLINICAL HISTORY: Altered mental status. COMPARISON STUDY: MRI of the brain January 19, 2024. Head CT August 21, 2024. TECHNIQUE: Unenhanced axial CT scan of the brain was performed from the vertex to the skull base. A dose lowering technique was utilized adhering to the principles of ALARA. CT DOSE: 984.83 mGy.cm FINDINGS: No acute intracranial hemorrhage, midline shift or mass effect is present. Right temporal craniotomy with encephalomalacia and dilatation of the temporal horn of the right lateral ventricle is unchanged. The ventricular system is stable. The basal cisterns are patent. There are no extra-axial collections. Right pontine calcifications remain unchanged. There are no findings to suggest acute dural sinus thrombosis or acute territorial infarct. Right mastoid effusion is unchanged from earlier exams. Heterogeneous appearance of the skull base and temporal and frontal bones is unchanged. There are no calvarial fractures IMPRESSION: No acute intracranial findings. No change in appearance of the brain. ACT 112: Negative or not required by law. Electronically signed by: Kevin Morton M.D. 09/16/2024 3:55 PM Discharge Plan Visit Data Chief Complaint: Lethargic ED Provider: Kimberli Ham Discharge Problem: Acute confusion, Elevated lactic acid level, Acute hyponatremia, Hypomagnesemia Condition: Fair Forms Stand Alone Forms: My [facility] [employer] Prescriptions Prescriptions: No Action levothyroxine 50 mcg tablet 50 mcg PO DAILY Qty: 90 3RF divalproex 500 mg tablet,delayed release (DR/EC) 500 mg PO BID Qty: 180 3RF acetaminophen [Tylenol] 325 mg Tablet 650 mg PO Q6 PRN (Reason: Fever Or Pain) atorvastatin 40 mg tablet 40 mg PO DAILY potassium chloride 20 mEq tablet extended release 20 meq PO QAM miconazole nitrate [Antifungal (miconazole)] 2 % Powder 1 applic TOPICAL BID Rx Instructions: apply to all folds twice daily for skin breakdown...apply pillow cases under breasts and under belly folds after applying powder to absorb moisture miconazole nitrate [Antifungal (miconazole)] 2 % Powder 1 applic TOPICAL UD PRN (Reason: skin breakdown) Rx Instructions: apply as needed under all folds and apply pillow cases under breasts and under belly folds after applying powder to absorb moisture Antifungal Cream 1 applic topical BID Rx Instructions: apply to back and buttocks for breakdown bid and as needed omeprazole 20 mg capsule,delayed release(DR/EC) 20 mg PO DAILY montelukast [Singulair] 10 mg tablet 10 mg PO DAILY polyethylene glycol 3350 [Miralax] 17 gram Powder In Packet 17 g PO DAILY Qty: 30 0RF docusate sodium 100 mg Capsule 100 mg PO BID Qty: 60 0RF Referrals Referrals: Aleshia Morton MD [Primary Care Provider] -
[2024-09-16 14:20] LABS: Basophils # (auto) 0.02 K/uL (0.00-0.20); Basophils % (auto) 0.2 %; Hematocrit (blood only) 33.8 % (37.0-47.0); Hemoglobin 11.9 g/dl (12.0-16.0); Immature Granulocytes # (auto) 0.03 K/uL (0.01-0.20); Immature Granulocytes % (auto) 0.3 %; Lymphocytes # (auto) 0.81 K/uL (1.20-3.40); Lymphocytes % (auto) 8.4 %; Mean Corpuscular Hemoglobin 32.4 pg (25.0-34.0); Mean Corpuscular Hgb Conc 35.2 g/dL (32.0-36.0); Mean Corpuscular Volume 92.1 fL (80.0-100.0); Mean Platelet Volume 8.8 fL (9.4-12.4); Monocytes # (auto) 1.22 K/uL (0.11-0.59); Monocytes % (auto) 12.7 %; Neutrophils # (auto) 7.54 K/uL (1.40-6.50); Neutrophils % (auto) 78.4 %; Platelet Count 88 K/uL (130-400); RDW Coefficient of Variation 13.5 % (11.5-14.5); RDW Standard Deviation 45.6 fL (36.4-46.3); Red Blood Count 3.67 M/uL (4.20-5.40); White Blood Count 9.62 K/ul (4.8-10.8)
[2024-09-16 14:38] LABS: Alanine Aminotransferase 15 U/L (7-52); Albumin Globulin Ratio 1.3 (0.9-2); Alkaline Phosphatase 50 U/L (34-104); Anion Gap 5 (3-11); Aspartate Aminotransferase 14 U/L (13-39); BUN Creatinine Ratio 16.4 (10-20); Bilirubin,Total 0.9 mg/dl (0.2-1.0); Blood Urea Nitrogen 10 mg/dl (6-23); Calcium 9.7 mg/dl (8.6-10.3); Carbon Dioxide 31 mmol/L (21-32); Chloride 93 mmol/L (98-107); Creatinine Clr Calc Pharmacy 86.8 ml/min; Globulin 3.1 gm/dl (2.5-4.0); Glucose 142 mg/dl (70-99(Fasting)); Magnesium 1.6 mg/dl (1.7-2.4); Potassium 4.6 mmol/L (3.5-5.1); Sodium 129 mmol/L (136-145); Total Protein 7.1 gm/dl (6.0-8.3)
--- NOTE | 2024-09-16 14:39 | XRay Report ---
XR chest 1V portable CLINICAL HISTORY: confusion COMPARISON STUDY: 08/21/2024 FINDINGS: Stable mild cardiomegaly without pulmonary vascular congestion. Inspiration is shallow. No effusion, consolidation, or pneumothorax. IMPRESSION: No acute findings. ACT 112: Negative or not required by law. Electronically signed by: Derrick Sy M.D. 09/16/2024 2:37 PM
[2024-09-16 14:41] LABS: Appearance Urine Clear (Clear); Bacteria Urine Automated 1+ (None Seen); Bilirubin Urine Negative (Negative); Blood Urine Negative (Negative); Cast Urine Automated 0-2 /lpf (0-2); Color Urine Dark Yellow; Glucose Urine UA Negative (Negative); Ketones Urine 1+ (Negative); Leukocyte Esterase Urine 1+ (Negative); Nitrite Urine Negative (Negative); Protein Urine Negative (Negative); RBC Urine Automated 0-2 /hpf (0-2); Specific Gravity Urine 1.019 (1.000-1.030); Urobilinogen Urine Negative (Negative); WBC Urine Automated 0-5 /hpf (0-5); pH Urine 6.5 (4.5-7.5)
[2024-09-16 14:44] LABS: Troponin I High Sensitivity < 2.3 pg/ml (0-14)
[2024-09-16 14:49] LABS: Prothrombin Time 10.7 Seconds (9.0-12.0)
[2024-09-16 14:53] LABS: Thyroid Stimulating Hormone 2.205 uIu/ml (0.300-4.500)
[2024-09-16 15:08] LABS: Influenza A virus by PCR Negative (Neg); Influenza B virus by PCR Negative (Neg); RSV by PCR Negative (Neg); SARS CoV2 RNA(COVID-19) Ceph NEGATIVE (Negative)
[2024-09-16] MEDS: MAGNESIUM SULFATE / D5W 1 GM/100 ML BAG IV STA (15:13)
[2024-09-16] MEDS: SODIUM CHLORIDE 0.9% 1,000 ML IV ONE (15:13)
--- NOTE | 2024-09-16 15:57 | CT Scan Report ---
CT SCAN OF THE BRAIN WITHOUT IV CONTRAST CLINICAL HISTORY: Altered mental status. COMPARISON STUDY: MRI of the brain January 19, 2024. Head CT August 21, 2024. TECHNIQUE: Unenhanced axial CT scan of the brain was performed from the vertex to the skull base. A dose lowering technique was utilized adhering to the principles of ALARA. CT DOSE: 984.83 mGy.cm FINDINGS: No acute intracranial hemorrhage, midline shift or mass effect is present. Right temporal c raniotomy with encephalomalacia and dilatation of the temporal horn of the right lateral ventricle is unchanged. The ventricular system is stable. The basal cisterns are patent. There are no extra-axial collections. Right pontine calcifications remain unchanged. There are no findings to suggest acute d ural sinus thrombosis or acute territorial infarct. Right mastoid effusion is unchanged from earlier exams. Heterogeneous appearance of the skull base and temporal and frontal bones is unchanged. There are no calvarial fractures IMPRESSION: No acute intracranial findings. No change in appearance of the brain. ACT 112: Negative or not required by law. Electronically signed by: Kevin Morton M.D. 09/16/2024 3:55 PM
--- NOTE | 2024-09-16 17:50 | History & Physical Report ---
Date of Service September 16, 2024 Assessment & Plan (1) Hypothyroidism: (2) Hypomagnesemia: Plan Ashley is a 64 Y O Female with PMH of hypothyroidism, hyperlipidemia, and Type II DM who presents to the ER from [facility] with concerns for confusion. Facility reports episode of delirum secondary to antibiotics that has not gotten better. Initial evaluation shows febrile, mild hyponatremia, hypomagnesemia and UA concerning for possible infection. Admitted for further workup. #Acute Metabolic encephalopathy Cause unclear - UTI vs hyponatremia vs hypomag vs other * possible UTI - UA was straight cath and + bacteria but no WBC - given febrile without other source will treat. Ceftriaxone daily * hyponatremia - diagnosed on prior admission, but asymptomatic thought to be from her seizure meds * hypomag - 1.8 on admission, replaced IV, recheck in AM Urine culture pending Blood culture pending PT/OT If does not resolve with above consider stool/abd source #Hyponatremia 129 on admission, was 130 previous admission and much more alert and oriented. 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 continue 1500 FR check serum osm, urine osm and urine Na Consult neurology for opinion if Depakote can be changed #thrombocytopenia Plts stable at 88 - okay to continue ASA seen by Heme last admission thought to be from Depakote #Hx of CVA/Seizure disorder/h/o Brain tumor resection Continue ASA - please provide RX at discharge Hx of oligodendroglioma removed in 2000 - seizure disorder since - takes Depakote , level WNL #hypothyroid - TSH here normal, continue Synthroid #HLD - continue statin DVT prophylaxis: Hold in setting of thrombocytopenia, SCDs Dispo: admit to med surg SonFredo updated by phone. Questioning if her mom is having silent seizures. History of Present Illness Chief Complaint: lethargy Primary Care Provider: Aleshia Morton MD Ashley is a 64 Y O Female with PMH of hypothyroidism, hyperlipidemia, and Type II DM who presents to the ER from [facility] with concerns for confusion. Facility reports episode of delirum secondary to antibiotics that has not gotten better - more lethargic and slow to respond. Patient awakens to verbal stimuli. Thinks she is at home and it is august 2024. Denies falling or any pain or any respiratory symptoms. However, unclear how reliable her hx is. TCM note from 05/05 notes they spoke with facility and she had had two falls in 3 days, falling backward onto her buttocks. ER course: NSS 1L x1 Mag 1g IV Allergies Allergy/AdvReac Type Severity Reaction Status Date / Time Sulfa (Sulfonamide Allergy Intermediate ITCHING, Verified 06/07/24 09:57 Antibiotics) BURNING Home Medications Medication Instructions Recorded Confirmed Type acetaminophen 325 mg tablet 650 mg PO Q6 PRN Fever Or Pain 01/19/23 09/16/24 History (Tylenol) divalproex 500 mg tablet,delayed 500 mg PO BID #180 tabs 02/05/24 09/16/24 Rx release levothyroxine 50 mcg tablet 50 mcg PO DAILY #90 tabs 03/30/24 09/16/24 Rx docusate sodium 100 mg capsule 100 mg PO BID #60 caps 09/09/24 09/16/24 Rx polyethylene glycol 3350 17 gram 17 g PO DAILY #30 ea 09/09/24 09/16/24 Rx oral powder packet (Miralax) montelukast 10 mg tablet 10 mg PO DAILY 09/12/24 09/16/24 History (Singulair) omeprazole 20 mg capsule,delayed 20 mg PO DAILY 09/12/24 09/16/24 History release Antifungal Cream 1 applic topical BID 09/16/24 09/16/24 History atorvastatin 40 mg tablet 40 mg PO DAILY 09/16/24 09/16/24 History miconazole nitrate 2 % topical 1 applic topical BID 09/16/24 09/16/24 History powder (Antifungal (miconazole)) miconazole nitrate 2 % topical 1 applic topical UD PRN skin 09/16/24 09/16/24 History powder (Antifungal (miconazole)) breakdown potassium chloride 20 mEq 20 meq PO QAM 09/16/24 09/16/24 History tablet,extended release Past Med/Surg History Problem List (Updated 09/16/24 @ 15:18 by Kimberli Ham MD) Hypomagnesemia (Acute) Acute hyponatremia (Acute) Elevated lactic acid level (Acute) Acute confusion (Acute) Dehydration Delirium Generalized weakness (Acute) Type 2 diabetes mellitus (Chronic) Hypothyroidism (Chronic) Hyperlipidemia (Chronic) B12 deficiency (Chronic) Medical History (Updated 09/16/24 @ 15:18 by Kimberli Ham MD) Acute encephalopathy Allergic rhinitis Chronic sinusitis Acute hyponatremia Acute confusion Fecal incontinence Recurrent herpes labialis Weakness Generalized weakness Diarrhea Ambulatory dysfunction Esophageal reflux Seizure disorder Hypomagnesemia Vitamin D deficiency History of CVA (cerebrovascular accident) lacunar infarct 09/2020>STILL HAS NUMBNESS IN RT HAND AND RT SIDE OF FACE Multiple pulmonary nodules stable on imaging - no further workup required Hx of brain cancer Right temporal glioma, s/p surgery, 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 Surgical History History of cataract surgery right Hx of colonoscopy Hx of tubal ligation Hx of section Hx of brain surgery [facility] Family History Grandmother Family history of diabetes mellitus Father Myocardial infarction Other No significant family history Denies family history of Ovarian cancer Prostate cancer Breast cancer Colorectal cancer Social History Smoking Status: Never smoker Tobacco Type: Smokeless Tobacco (Dip or Chew) Second Hand Exposure: No; Do You Dip or Chew Tobacco: No; Hx Alcohol Use: No Hx Substance Use: No Preferred Language: Sinhala Communication Ability: Effective Communication Ability Comment: TROUBLE HEARING OUT OF RIGHT SIDE Fire Control Technician G Required: No Beliefs That Will Affect Care: None marital status: Current Living Situation: Spouse current occupational status: employed 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 Childhood Exposure to Second-Hand Smoke: Yes Diet: regular caffeine: Yes (diet soda) Dental Care, Regularly: No Physical Activity Frequency: Does not Exercise Seatbelt Use: always Sunscreen Use: Yes Assistive Devices: Cane, Stair Lift and Walker Review of Systems Review of Systems: All systems reviewed & are unremarkable except as noted in Subjective Physical Exam Physical Exam: General: NAD, VS as above Resp: normal respiratory effort, lungs clear to auscultation CV: RRR, no murmur, Abd: normal bowel sounds, non tender, no hepatosplenomegaly Extremities: Moves all extremities, non pitting LE edema Neuro: A&O x3, Skin: bruising over mid sternal area but has areas of yellowing indicating this is improving Results & Data Results & Data Vital Signs (Past 12 Hours) Vital Signs Temp Pulse Pulse Resp BP BP Pulse Ox 09/16/24 16:33 79 20 119/68 95 09/16/24 16:01 82 21 132/81 95 09/16/24 15:30 79 22 121/63 95 09/16/24 15:00 81 22 113/77 96 09/16/24 14:55 99 H 09/16/24 14:21 86 18 97 09/16/24 13:45 100.2 F H 86 18 115/67 97 09/16/24 13:45 09/16/24 13:45 100.2 F H 86 18 115/67 97 O2 Del Method O2 Flow Rate 09/16/24 16:33 09/16/24 16:01 09/16/24 15:30 09/16/24 15:00 Room Air 09/16/24 14:55 09/16/24 14:21 Room Air 09/16/24 13:45 Room Air 09/16/24 13:45 Room Air 0 09/16/24 13:45 Room Air Laboratory Results cbc and chemistry reviewe d ua reviewed Diagnostic Findings cxr and head CT reviewed Supervising Physician Co-Signing Physician Notes Patient seen and examined, chart reviewed, case discussed with Saadia Justin PA-C and I agree with the assessment and plan as above except as otherwise noted Labs and images reviewed 64-year-old female with hypothyroidism, hyperlipidemia, type II DM presents from [facility] with confusion. She is febrile with evidence of a UTI. Suspect acute metabolic encephalopathy due to possible UTI and hyponatremia. UCx pending. Continue Rocephin. Hyponatremia 129, generally runs around 130.? Due to SIADH w/ antiepileptics. Urine osmolality and sodium is pending. To bedside, oriented to name. Denies pain. Feels tired, no other acute concerns. Abdomen is soft and nontender. Agree with above PG Care Time/CCT Total # of Minutes Spent Total Time Spent with Patient: Total time spent is greater than 50% in coordination of care (as documented) at patient's floor/unit and/or counseling patient: Coding Level of Care Code 99567 INT INP/OBS CARE 3/75MIN Diagnoses Hypothyroidism E03.9 Hypomagnesemia E83.42
[2024-09-16] MEDS: cefTRIAXone SODIUM 2,000 MG/50 ML BAG IV SCH (18:48)
[2024-09-16] MEDS ORDERED: MICONAZOLE NITRATE POWDER 85 GM TOP PRN (21:15)
[2024-09-16] MEDS ORDERED: POLYETHYLENE (MIRALAX) 17 GM PACK PO PRN (21:15)
[2024-09-16] MEDS ORDERED: MAGNESIUM HYDROXIDE SUSP 30 ML UDC PO PRN (21:15)
[2024-09-16] MEDS ORDERED: ACETAMINOPHEN 325 MG TAB PO PRN (21:15)
[2024-09-16] MEDS: BENZONATATE 100 MG CAPSULE PO PRN (21:51)
[2024-09-16] MEDS: DOCUSATE SODIUM 100 MG CAP PO SCH (21:51)
[2024-09-16] MEDS: DIVALPROEX DELAY RELEASE 500 MG TAB PO SCH (21:52)
--- NOTE | 2024-09-17 04:44 | Electrocardiogram Report ---
Test Reason : Blood Pressure : */* mmHG Vent. Rate : 85 BPM Atrial Rate : 85 BPM P-R Int : 208 ms QRS Dur : 68 ms QT Int : 368 ms P-R-T Axes : 67 43 66 degrees QTcB Int : 437 ms Poor data quality, interpretation may be adversely affected Sinus rhythm with 1st degree A-V block Low voltage QRS Nonspecific T wave abnormality Abnormal ECG When compared with ECG of 21-Aug-2024 15:27, Borderline criteria for Inferior infarct are no longer Present Confirmed by Praveen Hines ([id number]) on 09/17/2024 4:43:59 AM Referred By: [employer] [facility] Confirmed By: Praveen Hines
[2024-09-17] MEDS: LEVOTHYROXINE SODIUM 50 MCG TABLET PO SCH (06:11)
[2024-09-17 07:21] LABS: Hemoglobin 10.3 g/dl (12.0-16.0); Mean Corpuscular Hgb Conc 34.3 g/dL (32.0-36.0); Mean Corpuscular Volume 93.2 fL (80.0-100.0); Mean Platelet Volume 8.7 fL (9.4-12.4); Platelet Count 78 K/uL (130-400); RDW Coefficient of Variation 13.8 % (11.5-14.5); RDW Standard Deviation 47.1 fL (36.4-46.3); Red Blood Count 3.22 M/uL (4.20-5.40); White Blood Count 6.34 K/ul (4.8-10.8)
[2024-09-17 07:38] LABS: BUN Creatinine Ratio 13.1 (10-20); Calcium 9.4 mg/dl (8.6-10.3); Creatinine Clr Calc Pharmacy 85.7 ml/min
[2024-09-17] MEDS: MONTELUKAST SODIUM 10 MG TABLET PO SCH (08:12)
[2024-09-17] MEDS: POLYETHYLENE (MIRALAX) 17 GM PACK PO SCH (08:12)
[2024-09-17] MEDS: PANTOprazole 40 MG TAB PO SCH (08:12)
[2024-09-17] MEDS: ATORVASTATIN 40 MG TAB PO SCH (08:12)
[2024-09-17] MEDS: POTASSIUM CHLORIDE CRTAB 20 MEQ TABCR PO SCH (08:12)
--- NOTE | 2024-09-17 09:30 | Neurology Consultation ---
Date of Consultation September 17, 2024 Assessment & Plan (1) Acute confusion: History of Present Illness Attending Physician: Raf Garcia MD History of Present Illness S: pt this morning feeling well. not confused. doing well. called to get depakote med change for possible hyponatremia. currently sodium back to normal. followed by our clinic for prior seizure disorder from prior brain tumor and s/p surgery. admission HPI: Ashley is a 64 Y O Female with PMH of hypothyroidism, hyperlipidemia, and Type II DM who presents to the ER from [facility] with concerns for confusion. Facility reports episode of delirum secondary to antibiotics that has not gotten better - more lethargic and slow to respond. Patient awakens to verbal stimuli. Thinks she is at home and it is august 2024. Denies falling or any pain or any respiratory symptoms. However, unclear how reliable her hx is. TCM note from 09/12 notes they spoke with facility and she had had two falls in 3 days, falling backward onto her buttocks. Allergies Allergy/AdvReac Type Severity Reaction Status Date / Time Sulfa (Sulfonamide Allergy Intermediate ITCHING, Verified 06/07/24 09:57 Antibiotics) BURNING Home Medications Medication Instructions Recorded Confirmed Type acetaminophen 325 mg tablet 650 mg PO Q6 PRN Fever Or Pain 01/19/23 09/16/24 History (Tylenol) divalproex 500 mg tablet,delayed 500 mg PO BID #180 tabs 02/05/24 09/16/24 Rx release levothyroxine 50 mcg tablet 50 mcg PO DAILY #90 tabs 03/30/24 09/16/24 Rx docusate sodium 100 mg capsule 100 mg PO BID #60 caps 09/09/24 09/16/24 Rx polyethylene glycol 3350 17 gram 17 g PO DAILY #30 ea 09/09/24 09/16/24 Rx oral powder packet (Miralax) montelukast 10 mg tablet 10 mg PO DAILY 09/12/24 09/16/24 History (Singulair) omeprazole 20 mg capsule,delayed 20 mg PO DAILY 09/12/24 09/16/24 History release Antifungal Cream 1 applic topical BID 09/16/24 09/16/24 History atorvastatin 40 mg tablet 40 mg PO DAILY 09/16/24 09/16/24 History miconazole nitrate 2 % topical 1 applic topical BID 09/16/24 09/16/24 History powder (Antifungal (miconazole)) miconazole nitrate 2 % topical 1 applic topical UD PRN skin 09/16/24 09/16/24 History powder (Antifungal (miconazole)) breakdown potassium chloride 20 mEq 20 meq PO QAM 09/16/24 09/16/24 History tablet,extended release Patient History Medical History (Updated 09/16/24 @ 15:18 by Kimberli Ham MD) Acute encephalopathy Allergic rhinitis Chronic sinusitis Acute hyponatremia Acute confusion Fecal incontinence Recurrent herpes labialis Weakness Generalized weakness Diarrhea Ambulatory dysfunction Esophageal reflux Seizure disorder Hypomagnesemia Vitamin D deficiency History of CVA (cerebrovascular accident) lacunar infarct 09/2020>STILL HAS NUMBNESS IN RT HAND AND RT SIDE OF FACE Multiple pulmonary nodules stable on imaging - no further workup required Hx of brain cancer Right temporal glioma, s/p surgery, 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 Surgical History History of cataract surgery right Hx of colonoscopy Hx of tubal ligation Hx of section Hx of brain surgery 2000-[facility] Family History Grandmother Family history of diabetes mellitus Father Myocardial infarction Other No significant family history Denies family history of Ovarian cancer Prostate cancer Breast cancer Colorectal cancer Social History Smoking Status: Never smoker Tobacco Type: Smokeless Tobacco (Dip or Chew) Second Hand Exposure: No; Do You Dip or Chew Tobacco: No; Tobacco Cessation Education Requested by Patient: No Hx Alcohol Use: No Hx Substance Use: No Preferred Language: Korean Communication Ability: Effective Communication Ability Comment: TROUBLE HEARING OUT OF RIGHT SIDE Porcelain Slusher Required: No Beliefs That Will Affect Care: None marital status: Current Living Situation: Personal Care Facility current occupational status: employed 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 Childhood Exposure to Second-Hand Smoke: Yes Diet: regular caffeine: Yes (diet soda) Dental Care, Regularly: No Physical Activity Frequency: Does not Exercise Seatbelt Use: always Sunscreen Use: Yes Assistive Devices: Glasses, Hospital Bed and Walker Exam (Neuro) Physical Exam: HEENT: normocephalic grossly Neuro: Mental: AOx4, knew the name of hospital and president. fluent speech, normal comprehension, no apraxia, no L/R confusion, no neglect CN: PERRL, Full EOM, symmetric face, midline T/U/P, grossly full ROM neck Motor: No abnormal movements, moves all limbs well. Coord: intact Impression: 64 yo female with prior hx of seizure, now resolved confusion in setting of metabolic disorder/?UTI. pt without seizure. Pt has been on depakote for long time for her hx of brain tumor and s/p surgery. Depakote can cause hyponatremia (but not common). given her seizure is well controlled, it is reasonable reduce depakote dose slightly. Recommendations: reduce depakote to 500mg AM and 250mg PM. continue supportive care. will sign off. Chart reviewed I have spent more than 50% educating patient about potential diagnosis and neurological evaluation and coordinating care with patient's treatment team. Total time spent (including chart review and coordination of care): 45 min (this includes chart review). Results & Data Vital Signs (Past 12 Hours) Vital Signs Temp Pulse Resp BP Pulse Ox O2 Del Method 09/17/24 08:03 36.7 C 69 18 98/62 L 97 Room Air PG Care Time/CCT Total # of Minutes Spent Total Time Spent with Patient: Total time spent is greater than 50% in coordination of care (as documented) at patient's floor/unit and/or counseling patient: Coding Level of Care Code 57854 IN/OBS CONSULT LVL 3,45M Diagnoses Acute confusion R41.0
--- NOTE | 2024-09-17 11:51 | Hospitalist Progress Note ---
Date of Service September 17, 2024 Assessment & Plan (1) Hypothyroidism: (2) Hypomagnesemia: Plan Ashley is a 64 Y O Female with PMH of hypothyroidism, hyperlipidemia, and Type II DM who presents to the ER from [facility] with concerns for confusion. Facility reports episode of delirum secondary to antibiotics that has not gotten better. Initial evaluation shows febrile, mild hyponatremia, hypomagnesemia and UA concerning for possible infection. Admitted for further workup. #Acute Metabolic encephalopathy, multifactorial with hyponatremia and suspected UTI Improving, management of hyponatremia/UTI as below UTI With fever, infected appearing UA, confusion on admission Continue Rocephin empirically UCx pending, narrow antibiotics based on sensitivities Blood cultures pending, no growth to date #Hyponatremia 129 on admission, was 130 previous admission and much more alert and oriented. 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 Neurology was consulted, given that she has been stable I do not think that she is having breakthrough seizure activity recommended decreasing divalproex to 500 mg a.m., 250 mg p.m. Sodium normalized with care overnight. Urine sodium is 44 suggestive of SIADH, however rapid normalization fluids treatment suggests solute depletion as well. Continue to trend #thrombocytopenia Platelets remain greater than 50K, slightly low and thought to be due to antiseizure medications Depakote decreased as noted #Hx of CVA/Seizure disorder/h/o Brain tumor resection - Continue ASA -will need prescription at discharge - Hx of oligodendroglioma removed in 2000 Depakote levels adjusted as noted #hypothyroid - TSH here normal, continue Synthroid #HLD - continue statin DVT prophylaxis: Hold in setting of thrombocytopenia, SCDs Dispo: admit to med surg. Pending PT/OT, pending UC. Admission and Anticipated Discharge Date Admission Date: September 16, 2024 Cash Ramirez is seen at the bedside. She reports that she feels okay, denies events overnight. She reports she feels her energy is a little better and has no questions at this time. Has not been up and try to walk around. Is sitting up comfortably in the chair. Denies shaking/seizure. Slightly increase speech latency but thought process is linear Physical Exam Physical Exam: General: A&Ox3. NAD. Cooperative. Some increase speech latency but generally answers questions in a linear goal-directed fashion after slight speech delay HEENT: Atraumatic, normocephalic. Vision and hearing grossly intact Pulm: CTAB A&P. -wheezes, -rales, -rhonchi. Symmetrical chest rise. No increase in work of breathing. No respiratory distress. Cardiac: RRR, -mrg. Radial pulses intact and symmetrical. Abdominal: Nontender, nondistended, soft. BS present. Results & Data Results & Data Vital Signs (Past 12 Hours) Vital Signs Temp Pulse Resp BP Pulse Ox O2 Del Method 09/17/24 08:03 36.7 C 69 18 98/62 L 97 Room Air PG Care Time/CCT Total # of Minutes Spent Total Time Spent with Patient: Total time spent is greater than 50% in coordination of care (as documented) at patient's floor/unit and/or counseling patient: Coding Level of Care Code 89281 SUB INP/OBS CARE 3/50MIN Diagnoses Hypothyroidism E03.9 Hypomagnesemia E83.42
[2024-09-17] MEDS: COUGH DROP (SUGAR FREE) LOZ 24 LOZ/1 BOX BUCCAL PRN (16:43)
[2024-09-17] MEDS: DIVALPROEX EXTENDED RELEASE 250 MG TABCR PO SCH (19:50)
[2024-09-18] MEDS: DIVALPROEX DELAY RELEASE 500 MG TAB PO SCH (08:40)
--- NOTE | 2024-09-18 12:13 | Hospitalist Progress Note ---
Date of Service September 18, 2024 Assessment & Plan (1) Hypothyroidism: (2) Hypomagnesemia: Plan Ashley is a 64 Y O Female with PMH of hypothyroidism, hyperlipidemia, and Type II DM who presents to the ER from [facility] with concerns for confusion. Facility reports episode of delirum secondary to antibiotics that has not gotten better. Initial evaluation shows febrile, mild hyponatremia, hypomagnesemia and UA concerning for possible infection. Admitted for further workup. #Acute Metabolic encephalopathy, multifactorial with hyponatremia and suspected UTI Improving, management of hyponatremia/UTI as below UTI With fever, infected appearing UA, confusion on admission Continue Rocephin empirically UCx remain pending, pinpoint growth pending reincubation. Adjust antibiotics based on results when available Blood cultures pending, no growth to date #Hyponatremia 129 on admission, was 130 previous admission and much more alert and oriented. 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 Neurology was consulted, given that she has been stable I do not think that she is having breakthrough seizure activity recommended decreasing divalproex to 500 mg a.m., 250 mg p.m. Sodium normalized with care overnight. Urine sodium is 44 suggestive of SIADH, however rapid normalization fluids treatment suggests solute depletion as well. Normalized yesterday will repeat labs qod/as needed #thrombocytopenia Trend CBC, repeat blood work 09/19 Depakote decreased as noted #Hx of CVA/Seizure disorder/h/o Brain tumor resection - Continue ASA -will need prescription at discharge - Hx of oligodendroglioma removed in 2000 Depakote levels adjusted as noted #hypothyroid - TSH here normal, continue Synthroid #HLD - continue statin DVT prophylaxis: Hold in setting of thrombocytopenia, SCDs Dispo: admit to med surg. Medically stable, awaiting urine cultures and PT/OT for placement recommendations. Likely DC 09/19 Admission and Anticipated Discharge Date Admission Date: September 16, 2024 Subjective Seen at the bedside. Sitting up. No acute distress. Denies abdominal pain. No fevers chills or sweats.Still feels fatigued, but better than prior. Still waiting on PT/OT. Physical Exam Physical Exam: General: A&Ox3. NAD. Cooperative. Some increase speech latency but generally answers questions in a linear goal-directed fashion after slight speech delay HEENT: Atraumatic, normocephalic. Vision and hearing grossly intact Pulm: CTAB A&P. -wheezes, -rales, -rhonchi. Symmetrical chest rise. No increase in work of breathing. No respiratory distress. Cardiac: RRR, -mrg. Radial pulses intact and symmetrical. Abdominal: Nontender, nondistended, soft. BS present. Results & Data Results & Data Vital Signs (Past 12 Hours) Vital Signs Temp Pulse Resp BP Pulse Ox O2 Del Method 09/18/24 07:18 Room Air 09/18/24 07:02 36.5 C 63 16 117/74 96 Room Air PG Care Time/CCT Total # of Minutes Spent Total Time Spent with Patient: Total time spent is greater than 50% in coordination of care (as documented) at patient's floor/unit and/or counseling patient: Coding Level of Care Code 18686 SUB INP/OBS CARE 2/35MIN Diagnoses Hypothyroidism E03.9 Hypomagnesemia E83.42
[2024-09-19 07:35] LABS: Basophils # (auto) 0.02 K/uL (0.00-0.20); Basophils % (auto) 0.6 %; Hematocrit (blood only) 27.6 % (37.0-47.0); Hemoglobin 9.4 g/dl (12.0-16.0); Immature Granulocytes # (auto) 0.01 K/uL (0.01-0.20); Immature Granulocytes % (auto) 0.3 %; Lymphocytes % (auto) 37.8 %; Mean Corpuscular Hemoglobin 31.6 pg (25.0-34.0); Mean Corpuscular Hgb Conc 34.1 g/dL (32.0-36.0); Mean Corpuscular Volume 92.9 fL (80.0-100.0); Mean Platelet Volume 8.6 fL (9.4-12.4); Monocytes # (auto) 0.43 K/uL (0.11-0.59); Monocytes % (auto) 12.5 %; Neutrophils # (auto) 1.68 K/uL (1.40-6.50); Neutrophils % (auto) 48.8 %; Platelet Count 77 K/uL (130-400); RDW Coefficient of Variation 13.4 % (11.5-14.5); Red Blood Count 2.97 M/uL (4.20-5.40); White Blood Count 3.44 K/ul (4.8-10.8)
[2024-09-19 07:53] LABS: BUN Creatinine Ratio 13.8 (10-20); Calcium 9.3 mg/dl (8.6-10.3); Creatinine Clr Calc Pharmacy 90.2 ml/min; Potassium 4.2 mmol/L (3.5-5.1)
--- NOTE | 2024-09-19 14:56 | Hospitalist Progress Note ---
Date of Service September 19, 2024 Assessment & Plan (1) Hypothyroidism: (2) Hypomagnesemia: Plan Ashley is a 64 Y O Female with PMH of hypothyroidism, hyperlipidemia, and Type II DM who presents to the ER from [facility] with concerns for confusion. Facility reports episode of delirum secondary to antibiotics that has not gotten better. Initial evaluation shows febrile, mild hyponatremia, hypomagnesemia and UA concerning for possible infection. Admitted for further workup. #Acute Metabolic encephalopathy, multifactorial with hyponatremia and suspected UTI Improved UTI With fever, infected appearing UA, confusion on admission Continue Rocephin empirically UCx with Streptococcus/lactobacillus. May narrow to Keflex on discharge, recommend 5 total days of treatment #Hyponatremia Resolved Possible contribution from antiepileptics. Urine sodium of 44 suggestive of SIADH, but did have rapid normalization following fluids suggesting solute depletion Continue dose decrease of divalproex to 500 mg a.m., 250 mg p.m. #thrombocytopenia CBC trended Depakote decreased as noted #Hx of CVA/Seizure disorder/h/o Brain tumor resection - Continue ASA -will need prescription at discharge - Hx of oligodendroglioma removed in 2000 Depakote levels adjusted as noted #hypothyroid - TSH here normal, continue Synthroid #HLD - continue statin DVT prophylaxis: Heparin deferred due to thrombocytopenia. SCDs. Dispo: Medical/surgical Pending return home. Patient is not safe for return home alone. Discussed with case management. does provide 24-hour care however unfortunately he was hospitalized requiring IV antibiotics and is expected to return home at some point tomorrow. Plan is for her to return to 24-hour care at home, likely available either tomorrow afternoon or more likely 09/21. She is medically stable for discharge when a safe environment has been arranged at this time. CM following, appreciate assistance Admission and Anticipated Discharge Date Admission Date: September 16, 2024 Subjective No changes. No overnight events. Discussed with case management, pending arrangements to be made at home. Physical Exam Physical Exam: General: Oriented to name. NAD. Cooperative. Some increased speech latency but generally answers questions appropriately HEENT: Atraumatic, normocephalic. Vision and hearing grossly intact Pulm: CTAB A&P. -wheezes, -rales, -rhonchi. Symmetrical chest rise. No increase in work of breathing. No respiratory distress. Cardiac: RRR, -mrg. Radial pulses intact and symmetrical. Results & Data Results & Data Vital Signs (Past 12 Hours) Vital Signs Temp Pulse Resp BP Pulse Ox O2 Del Method 09/19/24 12:02 36.4 C L 73 14 117/77 97 Room Air 09/19/24 07:33 36.7 C 53 L 15 95/59 L 93 Room Air PG Care Time/CCT Total # of Minutes Spent Total Time Spent with Patient: Total time spent is greater than 50% in coordination of care (as documented) at patient's floor/unit and/or counseling patient: Coding Level of Care Code 71449 SUB INP/OBS CARE 2/35MIN Diagnoses Hypothyroidism E03.9 Hypomagnesemia E83.42
[2024-09-20 07:54] LABS: Basophils # (auto) 0.02 K/uL (0.00-0.20); Basophils % (auto) 0.6 %; Hematocrit (blood only) 28.6 % (37.0-47.0); Hemoglobin 9.8 g/dl (12.0-16.0); Immature Granulocytes # (auto) 0.01 K/uL (0.01-0.20); Immature Granulocytes % (auto) 0.3 %; Lymphocytes # (auto) 1.41 K/uL (1.20-3.40); Lymphocytes % (auto) 43.4 %; Mean Corpuscular Hemoglobin 31.5 pg (25.0-34.0); Mean Corpuscular Hgb Conc 34.3 g/dL (32.0-36.0); Mean Platelet Volume 8.4 fL (9.4-12.4); Monocytes # (auto) 0.34 K/uL (0.11-0.59); Monocytes % (auto) 10.5 %; Neutrophils # (auto) 1.47 K/uL (1.40-6.50); Neutrophils % (auto) 45.2 %; Platelet Count 85 K/uL (130-400); RDW Coefficient of Variation 13.3 % (11.5-14.5); RDW Standard Deviation 45.1 fL (36.4-46.3); Red Blood Count 3.11 M/uL (4.20-5.40); White Blood Count 3.25 K/ul (4.8-10.8)
[2024-09-20 08:19] LABS: Calcium 9.4 mg/dl (8.6-10.3); Creatinine Clr Calc Pharmacy 91.7 ml/min; Potassium 4.1 mmol/L (3.5-5.1)
--- NOTE | 2024-09-20 14:30 | Hospitalist Progress Note ---
Date of Service September 20, 2024 Assessment & Plan (1) Hypothyroidism: (2) Hypomagnesemia: Plan Ashley is a 64 Y O Female with PMH of hypothyroidism, hyperlipidemia, and Type II DM who presents to the ER from [facility] with concerns for confusion. Facility reports episode of delirum secondary to antibiotics that has not gotten better. Initial evaluation shows febrile, mild hyponatremia, hypomagnesemia and UA concerning for possible infection. #Acute Metabolic encephalopathy, multifactorial with hyponatremia and suspected UTI Improved UTI With fever, infected appearing UA, confusion on admission UCx with Streptococcus/lactobacillus. 5-day antibiotic course complete 09/20. #Hyponatremia Improving Possible contribution from antiepileptics. Urine sodium of 44 suggestive of SIADH, but did have rapid normalization following fluids suggesting solute depletion Continue dose decrease of divalproex to 500 mg a.m., 250 mg p.m. Improved. Check BMP every other day or as needed #thrombocytopenia CBC trended Depakote decreased as noted #Hx of CVA/Seizure disorder/h/o Brain tumor resection - Continue ASA -will need prescription at discharge - Hx of oligodendroglioma removed in 2000 Depakote levels adjusted as noted No evidence of recurrent seizure activity #hypothyroid - TSH here normal, continue Synthroid #HLD - continue statin DVT prophylaxis: Heparin deferred due to thrombocytopenia. SCDs. Dispo: Medical/surgical Pending return home. Patient is not safe for return home alone. Discussed with case management. Unfortunately his return home from hospitalization is delayed due to blood transfusion. Hopeful for this in the next day or 2. She is medically stable for discharge when a safe environment has been arranged. Did discuss with case management due to concerns for her being ill and her requiring 24-hour level of care, if he is not able to meet her care needs safely at home would need to complete insurance paperwork to begin the placement process however none of this has been done and patient currently has no insurance and not able to be placed at SNF at this time. Ashley reports that she feels safe at home and has been able to meet her care needs with her support. CM following, appreciate care and recommendations Admission and Anticipated Discharge Date Admission Date: September 16, 2024 Subjective Seen at the bedside. Sleeping comfortably. Awakens easily. No overnight events, no distress. Discussed waiting on further disposition planning, patient has no concerns expresses appreciation of care Physical Exam Physical Exam: General: Oriented to name. NAD. Cooperative. Some increased speech latency but generally answers questions appropriately HEENT: Atraumatic, normocephalic. Vision and hearing grossly intact Pulm: CTAB A&P. -wheezes, -rales, -rhonchi. Symmetrical chest rise. No increase in work of breathing. No respiratory distress. Cardiac: RRR, -mrg. Radial pulses intact and symmetrical. Results & Data Results & Data Vital Signs (Past 12 Hours) Vital Signs Temp Pulse Resp BP Pulse Ox O2 Del Method 09/20/24 14:14 36.4 C L 61 16 105/69 97 Room Air 09/20/24 07:50 36.4 C L 54 L 18 106/68 98 Room Air PG Care Time/CCT Total # of Minutes Spent Total Time Spent with Patient: Total time spent is greater than 50% in coordination of care (as documented) at patient's floor/unit and/or counseling patient: Coding Level of Care Code 39980 SUB INP/OBS CARE 2/35MIN Diagnoses Hypothyroidism E03.9 Hypomagnesemia E83.42
[2024-09-21 07:13] LABS: Basophils # (auto) 0.01 K/uL (0.00-0.20); Basophils % (auto) 0.3 %; Hematocrit (blood only) 28.6 % (37.0-47.0); Hemoglobin 9.9 g/dl (12.0-16.0); Immature Granulocytes # (auto) 0.01 K/uL (0.01-0.20); Immature Granulocytes % (auto) 0.3 %; Lymphocytes # (auto) 1.58 K/uL (1.20-3.40); Lymphocytes % (auto) 43.6 %; Mean Corpuscular Hemoglobin 31.4 pg (25.0-34.0); Mean Corpuscular Hgb Conc 34.6 g/dL (32.0-36.0); Mean Corpuscular Volume 90.8 fL (80.0-100.0); Mean Platelet Volume 8.4 fL (9.4-12.4); Neutrophils # (auto) 1.62 K/uL (1.40-6.50); Neutrophils % (auto) 44.8 %; Platelet Count 85 K/uL (130-400); RDW Coefficient of Variation 13.5 % (11.5-14.5); RDW Standard Deviation 43.8 fL (36.4-46.3); Red Blood Count 3.15 M/uL (4.20-5.40); White Blood Count 3.62 K/ul (4.8-10.8)
[2024-09-21 07:40] LABS: BUN Creatinine Ratio 10.7 (10-20); Calcium 9.3 mg/dl (8.6-10.3); Creatinine Clr Calc Pharmacy 93.4 ml/min; Potassium 4.1 mmol/L (3.5-5.1)
--- NOTE | 2024-09-21 08:06 | Hospitalist Progress Note ---
Date of Service September 21, 2024 Assessment & Plan (1) Hypothyroidism: (2) Hypomagnesemia: Plan Ashley is a 64 Y O Female with PMH of hypothyroidism, hyperlipidemia, and Type II DM who presents to the ER from [facility] with concerns for confusion. Facility reports episode of delirium secondary to antibiotics that has not gotten better. Initial evaluation shows febrile, mild hyponatremia, hypomagnesemia and UA concerning for possible infection. #Acute Metabolic encephalopathy - multifactorial with hyponatremia and suspected UTI - + fever +UA, confusion on toney Improved mentation, alert/oriented to person/place/year 09/21 UCx with Streptococcus/lactobacillus - completed Ceftriaxone IV x 5 day course 09/20 #Hyponatremia - IMPROVING Suspected 2nd to antiepileptics. Urine Na 44 suggestive of SIADH but have rapid normalization suggesting solute depletion (also reporting increased PO/diet here compared to home) Divalproex decreased to 500mg QAM, 250mg PM * Note prior level last month was 99- when I had ashley in December 2023 was <10 and her dosing was increased to 500BID however repeat levels upper limits. In december she did report compliance w/ meds and her at that time was doing her pills Na improved, currently 135 and will monitor BMP in day or two/as needed #thrombocytopenia Improving/stable. Depakote decreased as noted above. Monitor CBC #Hx of CVA/Seizure disorder/h/o Brain tumor resection Continue ASA -will need prescription at discharge Hx of oligodendroglioma removed in 2000 Depakote levels adjusted as noted No evidence of recurrent seizure activity #Hypothyroidism - remains on Synthroid 50mcg daily. TSH wnl #HLD - continue statin DVT prophylaxis: Heparin deferred due to thrombocytopenia. SCDs. Dispo: Patient is not safe for return home alone. Discussed with CM. also inpatient at this time and prior had reported when I had in December needed additional help and suspect needs placement at this time unless able to provide 24hr level of care. If he is not able to meet needs, will need to complete insurance paperwork to begin the placement process however none of this has been done and patient currently has no insurance and not able to be placed at SNF at this time. Ashley reports that she feels safe at home and has been able to meet her care needs with her support. CM following, appreciate care and recommendations. Admission and Anticipated Discharge Date Admission Date: September 16, 2024 Supervising Physician Co-Signing Physician Notes The patient was not seen by me. The chart was reviewed. Case discussed with KASSIE Mensah. Agree with assessment and plan Subjective Eval this morning, sitting up in bed. Reports feeling well, eating "great". Says " I probably gained weight here". Good appetite, no pain. Na improved. Discussed CM working on disposition, she is not sure status of her at the moment but knows he was ill. Possible need for rehab/placement due to safety. Knows in hospital, year 2024 and month September. Questions/concerns addressed at this time. Physical Exam 2 Physical Exam: General: Oriented to person/name, knows month/year, cooperative/pleasant, some intermittent latency to speech but generaly answers questions appropriately HEENT: Atraumatic, normocephalic. Vision and hearing grossly intact Pulm: CTAB A&P. -wheezes, -rales, -rhonchi. Symmetrical chest rise. No increase in work of breathing. No respiratory distress. Cardiac: RRR, -mrg. Radial pulses intact and symmetrical. Results & Data Results & Data Vital Signs (Past 12 Hours) Vital Signs Temp Pulse Resp BP Pulse Ox O2 Del Method 09/21/24 07:11 36.4 C L 55 L 16 101/65 99 Room Air Laboratory Results 09/21/24 06:44 09/21/24 06:44 PG Care Time/CCT Total # of Minutes Spent Total Time Spent with Patient: Total time spent is greater than 50% in coordination of care (as documented) at patient's floor/unit and/or counseling patient: Coding Level of Care Code 81120 SUB INP/OBS CARE 2/35MIN Diagnoses Hypothyroidism E03.9 Hypomagnesemia E83.42
[2024-09-21 09:56] LABS: Magnesium 1.8 mg/dl (1.7-2.4)
--- NOTE | 2024-09-22 08:29 | Hospitalist Progress Note ---
Date of Service September 22, 2024 Assessment & Plan (1) Hypothyroidism: (2) Hypomagnesemia: Plan Ashley is a 64 Y O Female with PMH of hypothyroidism, hyperlipidemia, and Type II DM who presents to the ER from [facility] with concerns for confusion. Facility reports episode of delirium secondary to antibiotics that has not gotten better. Initial evaluation shows febrile, mild hyponatremia, hypomagnesemia and UA concerning for possible infection. #Acute Metabolic encephalopathy - multifactorial with hyponatremia and suspected UTI - + fever +UA, confusion on toney Improved mentation, alert/oriented to person/place/year 09/21 UCx with Streptococcus/lactobacillus - completed Ceftriaxone IV x 5 day course 09/20 #Hyponatremia - IMPROVING Suspected 2nd to antiepileptics. Urine Na 44 suggestive of SIADH but have rapid normalization suggesting solute depletion (also reporting increased PO/diet here compared to home) Divalproex decreased to 500mg QAM, 250mg PM -Note prior level last month was 99 (when I had ashley in December 2023 was <10 and her dosing was increased to 500BID however repeat levels upper limits. In december she did report compliance w/ meds and her at that time was doing her pills) Na improved, currently 135 and will monitor BMP in AM #thrombocytopenia Improving/stable. Depakote decreased as noted above. Monitor CBC #Hx of CVA/Seizure disorder/h/o Brain tumor resection Continue ASA -will need prescription at discharge Hx of oligodendroglioma removed in 2000 Depakote levels adjusted as noted No evidence of recurrent seizure activity #Hypothyroidism - remains on Synthroid 50mcg daily. TSH wnl #HLD - continue statin DVT prophylaxis: Heparin deferred due to thrombocytopenia. SCDs. Dispo: Patient is not safe for return home alone. Discussed with CM. also inpatient at this time and prior had reported when I had in December needed additional help and suspect needs placement at this time unless able to provide 24hr level of care. If he is not able to meet needs, will need to complete insurance paperwork to begin the placement process however none of this has been done and patient currently has no insurance and not able to be placed at SNF at this time. Ashley reports that she feels safe at home and has been able to meet her care needs with her support. CM following, appreciate care and recommendations. Admission and Anticipated Discharge Date Admission Date: September 16, 2024 Supervising Physician Co-Signing Physician Notes The patient was not seen by me. The chart was reviewed. Case discussed with KASSIE Mensah. Agree with assessment and plan Subjective Eval this morning, sitting up in chair. Good appetite, no issues. hasn't heard about how her is, last she knew he was at rehab. ongoing placement issues due to safety until able to confirm. questions/concerns addressed. no issues reported by nursing Physical Exam 2 Physical Exam: General: Oriented to person/name, knows month/year, cooperative/pleasant, some intermittent latency to speech but generaly answers questions appropriately HEENT: Atraumatic, normocephalic. Vision and hearing grossly intact Pulm: CTAB A&P. -wheezes, -rales, -rhonchi. Symmetrical chest rise. No increase in work of breathing. No respiratory distress. Cardiac: RRR, -mrg. Radial pulses intact and symmetrical. Results & Data Results & Data Vital Signs (Past 12 Hours) Vital Signs Temp Pulse Resp BP Pulse Ox O2 Del Method 09/22/24 08:01 36.7 C 61 16 104/69 95 Room Air Laboratory Results 09/21/24 06:44 09/21/24 06:44 PG Care Time/CCT Total # of Minutes Spent Total Time Spent with Patient: Total time spent is greater than 50% in coordination of care (as documented) at patient's floor/unit and/or counseling patient: Coding Level of Care Code 32326 SUB INP/OBS CARE 06/04MIN Diagnoses Hypothyroidism E03.9 Hypomagnesemia E83.42
[2024-09-23 08:35] LABS: Hematocrit (blood only) 33.4 % (37.0-47.0); Hemoglobin 11.7 g/dl (12.0-16.0); Mean Corpuscular Hemoglobin 31.9 pg (25.0-34.0); Mean Platelet Volume 8.4 fL (9.4-12.4); Platelet Count 114 K/uL (130-400); RDW Coefficient of Variation 13.5 % (11.5-14.5); RDW Standard Deviation 44.1 fL (36.4-46.3); Red Blood Count 3.67 M/uL (4.20-5.40); White Blood Count 4.55 K/ul (4.8-10.8)
--- NOTE | 2024-09-23 08:35 | Hospitalist Progress Note ---
Date of Service September 23, 2024 Assessment & Plan (1) Hypothyroidism: (2) Hypomagnesemia: Plan Ashley is a 64 Y O Female with PMH of hypothyroidism, hyperlipidemia, and Type II DM who presents to the ER from [facility] with concerns for confusion. Facility reports episode of delirium secondary to antibiotics that has not gotten better. Initial evaluation shows febrile, mild hyponatremia, hypomagnesemia and UA concerning for possible infection. #Acute Metabolic encephalopathy - multifactorial with hyponatremia and suspected UTI - + fever +UA, confusion on toney Improved mentation, alert/oriented to person/place/year 09/21 UCx with Streptococcus/lactobacillus - completed Ceftriaxone IV x 5 day course 09/20 #Hyponatremia - IMPROVING Suspected 2nd to antiepileptics. Urine Na 44 suggestive of SIADH but have rapid normalization suggesting solute depletion (also reporting increased PO/diet here compared to home) Divalproex decreased to 500mg QAM, 250mg PM -Note prior level last month was 99 (when I had ashley in December 2023 was <10 and her dosing was increased to 500BID however repeat levels upper limits. In december she did report compliance w/ meds and her at that time was doing her pills) Na improved, currently 135 and will monitor BMP in AM #thrombocytopenia Improving/stable. Depakote decreased as noted above. Monitor CBC #Hx of CVA/Seizure disorder/h/o Brain tumor resection Continue ASA -will need prescription at discharge Hx of oligodendroglioma removed in 2000 Depakote levels adjusted as noted No evidence of recurrent seizure activity #Hypothyroidism - remains on Synthroid 50mcg daily. TSH wnl #HLD - continue statin DVT prophylaxis: Heparin deferred due to thrombocytopenia. SCDs. Dispo: Patient is not safe for return home alone. Discussed with CM. also inpatient at this time and prior had reported when I had in December needed additional help and suspect needs placement at this time unless able to provide 24hr level of care. If he is not able to meet needs, will need to complete insurance paperwork to begin the placement process however none of this has been done and patient currently has no insurance and not able to be placed at SNF at this time. Ashley reports that she feels safe at home and has been able to meet her care needs with her support. CM following, appreciate care and recommendations. Admission and Anticipated Discharge Date Admission Date: September 16, 2024 Results & Data Results & Data Vital Signs (Past 12 Hours) Vital Signs Temp Pulse Resp BP Pulse Ox O2 Del Method 09/23/24 08:11 36.6 C 64 18 115/72 98 Room Air PG Care Time/CCT Total # of Minutes Spent Total Time Spent with Patient: Total time spent is greater than 50% in coordination of care (as documented) at patient's floor/unit and/or counseling patient: Coding Diagnoses Hypothyroidism E03.9 Hypomagnesemia E83.42
[2024-09-23 08:55] LABS: BUN Creatinine Ratio 11.1 (10-20); Calcium 9.8 mg/dl (8.6-10.3); Magnesium 1.8 mg/dl (1.7-2.4); Potassium 4.2 mmol/L (3.5-5.1)
--- NOTE | 2024-09-23 10:16 | Discharge Summary ---
Discharge Summary Date of Service September 23, 2024 Principal Dx & Hospital Course #1 = Principal Diagnosis (1) Hypothyroidism: (2) Hypomagnesemia: Plan 64yo female with PMHx significant for seizure disorder, hypothyroidism, HLD, GERD, chronic sinusitis presented from [facility] for concerns for confusion/acute metabolic encephalopathy w/ reported episode of delirium at facility 2nd to antibiotics that did not get any better. On admission, febrile with hyponatremia 129 and +UA concerning for possible infection. #Acute Metabolic encephalopathy- multifactorial with hyponatremia and suspected UTI , medication effects from Depakote/toxicity possible Back to baseline, completed course Ceftriaxone x 5 days for urine streptococcus/lactobacillus. Hyponatremia improved/stable compared to baseline. Note was on fluid restriction and can loosen/encourage solute intake for Urine Na 44 Neurology consulted and also rec decrease PM depakote to 250mg daily. I did increase this in [facility] last year but had not been consistently taking at that time w/ low level <10 however recent levels in the 90s and could be related. Rec repeat BMP in next week or two in follow up as able. No evidence for seizure activity reported Patient alert to person/place/time/month on 09/23, wanting to go home. Per CM, son brought home from rehab and will pick her up this evening. To dc on lower evening depakote, follow up PCP and Neurology. Resumed ASA 81mg daily but if plt <[address] back on hold. #Hyponatremia - acute on chronic, likely related to psych meds/antiepileptics/PO intake. Urine Na 44 suggestive of SIADH but have rapid normalization suggesting solute depletion (also reporting increased PO/diet here compared to home). Divalproex decreased to 500mg QAM, 250mg PM - new rx at dc provided. As above, recent level was 99 last month and ?if was toxic. Regardless has been decreased and will need outpt f/u. Na stable 133 w/ stable mentation and good PO intak e.TSH 2.2 and remains on home Synthroid #thrombocytopenia Improving/stable and suspected 2nd to depakote above. WBC up to 4.5K w/o fever prior to dc and continued improvement. Monitor CBC in f/u #Hx of CVA/Seizure disorder/h/o Brain tumor resection Hx of oligodendroglioma removed in 2000 Depakote levels adjusted as noted, no evidence of recurrent seizure activity Resumed prior ASA 81mg at dc given platelets stable/improved and up to 114 prior to discharge which also could have been from med. F/u neuro outpt #Hypothyroidism - remains on Synthroid 50mcg daily. TSH wnl #HLD - continue statin DVT prophylaxis: Heparin deferred due to thrombocytopenia. SCDs. No evidence for DVT Dispo: was initially needing inpatient stay and 24/7 care as was hospitalized and unable to care for her however case management has been in contact w/ son and brought home and able to pick her up today and will be with her at home/agreeable to bring home. Highly encourage to fill out paperwork for insurance to resume routine care/monitoring as must have lapsed in the past year (had in Jan 2024) Notes For Next Care Provider Rec check BMP in next week to ensure NA stable, also CBC to ensure WBC continued improvement Monitor valproic acid/neurology follow up Monitor to hold ASA if plt <50 Medication Changes From Visit Depakote decreased to 250mg HS, continue 500mg in the morning ASA 81mg daily restarted at discharge Admission HPI Per Admitting Provider Ashley is a 64 Y O Female with PMH of hypothyroidism, hyperlipidemia, and Type II DM who presents to the ER from [facility] with concerns for confusion. Facility reports episode of delirum secondary to antibiotics that has not gotten better - more lethargic and slow to respond. Patient awakens to verbal stimuli. Thinks she is at home and it is august 2024. Denies falling or any pain or any respiratory symptoms. However, unclear how reliable her hx is. TCM note from 09/12 notes they spoke with facility and she had had two falls in 3 days, falling backward onto her buttocks. ER course: NSS 1L x1 Mag 1g IV Admission Exam Per Admitting Provider General: NAD, VS as above Resp: normal respiratory effort, lungs clear to auscultation CV: RRR, no murmur, Abd: normal bowel sounds, non tender, no hepatosplenomegaly Extremities: Moves all extremities, non pitting LE edema Neuro: A&O x3, Skin: bruising over mid sternal area but has areas of yellowing indicating this is improving Discharge Exam General: 64yo female sitting up in the chair, NAD, alert to place/year 2024, month September, anxious to go home if family able to pick her up Head atraumatic, mm stable, trachea midline Resp: even/unlabored, no wheezing/rales, on room air CV: regular, no significant m/r/g, no pitting edema/calf tenderness GI: +BS, sfot/NT MSK/Neuro: moves all extremities, baseline R hand numbness/tingling (not new since I had her in 2023, also chronic per patient), able to follow commands/requests as asked, speech clear, no facial droop Psych: alert/oriented and cooperative, some intermittent forgetfulness but appears baseline Discharge Plan Discharge Items Patient Disposition: Home - Self-Care Reason For Visit: AMS Discharge Diagnosis: Hyponatremia, medication related Condition on Discharge: Fair Goals: You have been hospitalized for an acute medical problem. During your stay at [facility], we have made an effort to correct the problem that brought you to the hospital while keeping you as comfortable as possible. Medications were used to bring your condition under control and your discharge instructions will include directions for any medications you should take after leaving the hospital. Please make sure you see your Primary Care Provider as part of your follow up plan. Activity: As commented below Non-emergency contact: Primary Care Provider and Neurologist Call non-emergency contact if: you have any medication questions, your symptoms worsen, your pain is not controlled, your pain is concerning for you and you have a fever Follow-up/Referrals: Poncho Gamble MD [Physician] - Aleshia Morton MD [Primary Care Provider] - 09/28/24 11:30 am (Follow up with PIEDAD Romero 09/28/24 @ 11:30) Diet: Heart Healthy Diet Texture: Easy to Chew Addtl Attending Provider Instructions: You have been hospitalized for confusion. Imaging was negative for stroke. Neurology was consulted and your DEPAKOTE has been adjusted to DECREASE to 250mg in the evening. You should also be on a baby aspirin 81mg daily. You should have repeat blood counts and BMP in the next week in follow up with primary care and should also follow up with Neurology. Please return to the ER with any increased confusion, fever, chest pain, shortness of breath or for any other symptoms concerning for you. Take care! Pending Studies at Discharge: No Stand-Alone Forms: My [facility], Smoking Cessation Medications and DC Order Prescriptions: New divalproex 500 mg Tablet,Delayed Release (Dr/Ec) 500 mg PO QAM Qty: 30 0RF divalproex 250 mg Tablet Extended Release 24 Hr 250 mg PO HS Qty: 30 0RF aspirin 81 mg tablet 81 mg PO DAILY Qty: 30 0RF Continued levothyroxine 50 mcg tablet 50 mcg PO DAILY Qty: 90 3RF acetaminophen [Tylenol] 325 mg Tablet 650 mg PO Q6 PRN (Reason: Fever Or Pain) atorvastatin 40 mg tablet 40 mg PO DAILY potassium chloride 20 mEq tablet extended release 20 meq PO QAM miconazole nitrate [Antifungal (miconazole)] 2 % Powder 1 applic TOPICAL BID Rx Instructions: apply to all folds twice daily for skin breakdown...apply pillow cases under breasts and under belly folds after applying powder to absorb moisture miconazole nitrate [Antifungal (miconazole)] 2 % Powder 1 applic TOPICAL UD PRN (Reason: skin breakdown) Rx Instructions: apply as needed under all folds and apply pillow cases under breasts and under belly folds after applying powder to absorb moisture Antifungal Cream 1 applic topical BID Rx Instructions: apply to back and buttocks for breakdown bid and as needed omeprazole 20 mg capsule,delayed release(DR/EC) 20 mg PO DAILY montelukast [Singulair] 10 mg tablet 10 mg PO DAILY polyethylene glycol 3350 [Miralax] 17 gram Powder In Packet 17 g PO DAILY Qty: 30 0RF docusate sodium 100 mg Capsule 100 mg PO BID Qty: 60 0RF Discontinued divalproex 500 mg tablet,delayed release (DR/EC) 500 mg PO BID Qty: 180 3RF Discharge Orders: Discharge Order (Routine); Ordered 09/23/24 Ordered By: Faviola Odonnell Admission Data Admit Date/Time: 09/16/24 20:44 Attending Provider: Steve Wallace Admit Provider: Raf Garcia Primary Care Provider: Aleshia Morton Other Providers: Raf Garcia; Charles Daniel Other Interventions: Discharge Summary Assessment (RN) Last Done: 09/23/24 12:20 Hospital Stay Data Consultations 09/16/24 16:19 ED Decision to Admit Stat 09/16/24 21:15 Consult Neurology Routine Diagnostic Imagining Performed Chest X-Ray 09/16/24 14:06 XR chest 1V portable CLINICAL HISTORY: confusion COMPARISON STUDY: 08/21/2024 FINDINGS: Stable mild cardiomegaly without pulmonary vascular congestion. Inspiration is shallow. No effusion, consolidation, or pneumothorax. IMPRESSION: No acute findings. ACT 112: Negative or not required by law. Electronically signed by: Derrick Sy M.D. 09/16/2024 2:[address] 09/16/24 14:06 CT SCAN OF THE BRAIN WITHOUT IV CONTRAST CLINICAL HISTORY: Altered mental status. COMPARISON STUDY: MRI of the brain January 19, 2024. Head CT August 21, 2024. TECHNIQUE: Unenhanced axial CT scan of the brain was performed from the vertex to the skull base. A dose lowering technique was utilized adhering to the [facility]. CT DOSE: 984.83 mGy.cm FINDINGS: No acute intracranial hemorrhage, midline shift or mass effect is present. Right temporal craniotomy with encephalomalacia and dilatation of the temporal horn of the right lateral ventricle is unchanged. The ventricular system is stable. The basal cisterns are patent. There are no extra-axial collections. Right pontine calcifications remain unchanged. There are no findings to suggest acute dural sinus thrombosis or acute territorial infarct. Right mastoid effusion is unchanged from earlier exams. Heterogeneous appearance of the skull base and temporal and frontal bones is unchanged. There are no calvarial fractures IMPRESSION: No acute intracranial findings. No change in appearance of the brain. ACT 112: Negative or not required by law. Electronically signed by: Kevin Morton M.D. 09/16/2024 3:55 PM Discharge Instructions Given to Patient (Per Discharging Provider) You have been hospitalized for confusion. Imaging was negative for stroke. Neurology was consulted and your DEPAKOTE has been adjusted to DECREASE to 250mg in the evening. You should also be on a baby aspirin 81mg daily. You should have repeat blood counts and BMP in the next week in follow up with primary care and should also follow up with Neurology. Please return to the ER with any increased confusion, fever, chest pain, shortness of breath or for any other symptoms concerning for you. Take care! Supervising Physician Co-Signing Physician Notes The patient was not seen by me. The chart was reviewed. Case discussed with KASSIE Mensah. Agree with assessment and plan Total Time Total Time Spent Total Time Spent (In Minutes): 40 Coding Level of Care Code 30752 INP/OBS DISCH >30 MIN Diagnoses Hypothyroidism E03.9 Hypomagnesemia E83.42
[2024-09-23 12:00] VITALS: TEMP 97.7
[2024-09-23 15:15] VITALS: BP 101/66; PULSE 57; RESP 16; O2SAT 100
== END 2024-09-23 16:02 | disposition home or self-care (01) | DRG 640 ==
LOC: ED 13:48 → 3N 20:34 → SUATTDRO 20:44 → 3N 20:44

== ENCOUNTER 2024-10-11 18:14 | Inpatient (IN) ==
--- NOTE | 2024-10-11 18:41 | Emergency Department Note ---
Impression & Plan Generalized weakness, Acute hyponatremia, SDH (subdural hematoma) ED Provider Note NAME: JIM MAGAÑA AGE: 64 SEX: F : 1960 ARRIVES VIA: Ambulance INFORMANT: Patient, Nursing ED PROVIDER(S): Joseph Macdonald MD CHIEF COMPLAINT: Fall MEDICAL DECISION MAKING: Patient presents due to concern for fall. I had seen the patient last week time when she was diagnosed with a subdural hematoma. IV was established and blood work was obtained. Ammonia level sent along with CT head chest x-ray and EKG. Patient currently without complaints. There are concerns for possible inability to care at home. Patient's blood work shows a normal white count hemoglobin and platelet count. The patient's kidney function is unremarkable. The patient's ammonia is not elevated. LFTs unremarkable. Urinalysis does not show evidence of obvious infection. Slightly low sodium at 130. CT head shows no change from prior. Due to the patient's mental status is about the same as last week. I did speak the on-call hospitalist service sola Will PA-C and the patient was admitted by Dr. Kay. Discussion w/ other healthcare providers: None Prior /Outside records reviewed: None Differential diagnosis: Infection, dehydration, metabolic abnormality, hypo/hyperglycemia, electrolyte imbalance, anemia, UTI, pneumonia, thyroid dysfunction among others were considered. Diagnostics, as interpreted by me: ECG: Normal sinus rhythm, rate of 61, normal intervals, normal axis no ST elevations. Cardiac monitoring: An order was placed for continuous cardiac monitoring. The monitor shows a rate of 65 with sinus rhythm. Patient was placed on pulse oximetry Medical decision rules: None Imaging studies: I informally interpreted the patient's chest x-ray does not show obvious pneumonia with formal report to follow. HPI: Patient presents today due to concerns for fall. reportedly had called EMS due to concerns with the fall. I had seen the patient last week for subdural hematoma. Patient currently denies any complaints. No head neck chest back or abdominal pain. Patient does have a history of frequent falls no history of TBI and seizure disorder on meds. PAST MEDICAL HISTORY: See Below PAST SURGICAL HISTORY: See Below SOCIAL HISTORY: See Below HOME MEDICATIONS: See Below ALLERGIES: See Below VITALS: See Below PHYSICAL EXAMINATION: GENERAL: NAD, non-toxic. Head: Normocephalic atraumatic. EYE EXAM: Normal conjunctiva. PERRL, no anisocoria and EOM's grossly intact w/o pain. OROPHARYNX: Moist mucus membranes, grossly normal dentition. NECK: Trachea midline, no stridor. No TTP. LUNGS: Clear to auscultation. Normal chest wall mechanics. HEART: NSR, no MRG. ABDOMEN: Abdomen soft, non-tender, no masses, no rebound or guarding. BACK: No CVA TTP. SKIN: No rashes and no bruising. UPPER EXTREMITIES: Upper extremities are grossly normal. LOWER EXTREMITIES: Grossly normal, no edema. NEURO EXAM: Opens eyes to voice, follows commands, no obvious facial asymmetry, normal speech, moves all 4 extremities. Past Med/Surg History Problem List (Updated 10/12/24 @ 22:38 by Joseph Macdonald MD) Hyponatremia Fall Ambulatory dysfunction Weakness (Acute) Acute UTI (Acute) SDH (subdural hematoma) (Acute) Hypomagnesemia (Acute) Acute hyponatremia (Acute) Elevated lactic acid level (Acute) Acute confusion (Acute) Dehydration Delirium Generalized weakness (Acute) Type 2 diabetes mellitus (Chronic) Hypothyroidism (Chronic) Hyperlipidemia (Chronic) B12 deficiency (Chronic) Medical History Acute encephalopathy Allergic rhinitis Chronic sinusitis Acute hyponatremia Acute confusion Fecal incontinence Recurrent herpes labialis Weakness Generalized weakness Diarrhea Esophageal reflux Seizure disorder Hypomagnesemia Vitamin D deficiency History of CVA (cerebrovascular accident) lacunar infarct 09/2020>STILL HAS NUMBNESS IN RT HAND AND RT SIDE OF FACE Multiple pulmonary nodules stable on imaging - no further workup required Hx of brain cancer Right temporal glioma, s/p surgery, 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 Surgical History History of cataract surgery right Hx of colonoscopy Hx of tubal ligation Hx of section Hx of brain surgery [facility] Family History Grandmother Family history of diabetes mellitus Father Myocardial infarction Other No significant family history Denies family history of Ovarian cancer Prostate cancer Breast cancer Colorectal cancer Social History Smoking Status: Never smoker Tobacco Type: Smokeless Tobacco (Dip or Chew) Second Hand Exposure: No; Do You Dip or Chew Tobacco: No; Hx Alcohol Use: No Hx Substance Use: No Preferred Language: Greenlandic Communication Ability: Effective Communication Ability Comment: TROUBLE HEARING OUT OF RIGHT SIDE Golf Course Assistant Required: No Beliefs That Will Affect Care: None marital status: Current Living Situation: Personal Care Facility current occupational status: employed 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 Childhood Exposure to Second-Hand Smoke: Yes Diet: regular caffeine: Yes (diet soda) Dental Care, Regularly: No Physical Activity Frequency: Does not Exercise Seatbelt Use: always Sunscreen Use: Yes Assistive Devices: Cane and Stair Lift Allergies Allergies Allergy/AdvReac Type Severity Reaction Status Date / Time Sulfa (Sulfonamide Allergy Intermediate ITCHING, Verified 10/11/24 20:28 Antibiotics) BURNING Home Meds Home Medications Medication Instructions Recorded Confirmed acetaminophen 325 mg tablet 650 mg PO Q6 PRN Fever Or Pain 01/19/23 10/11/24 (Tylenol) montelukast 10 mg tablet 10 mg PO DAILY 09/12/24 10/11/24 (Singulair) omeprazole 20 mg capsule,delayed 20 mg PO DAILY 09/12/24 10/11/24 release Antifungal Cream 1 applic topical BID 09/16/24 10/11/24 atorvastatin 40 mg tablet 40 mg PO DAILY 09/16/24 10/11/24 miconazole nitrate 2 % topical 1 applic topical BID 09/16/24 10/11/24 powder (Antifungal (miconazole)) miconazole nitrate 2 % topical 1 applic topical UD PRN skin 09/16/24 10/11/24 powder (Antifungal (miconazole)) breakdown potassium chloride 20 mEq 20 meq PO QAM 09/16/24 10/11/24 tablet,extended release Previous Rx's Medication Instructions Recorded levothyroxine 50 mcg tablet 50 mcg PO DAILY #90 tabs 03/30/24 docusate sodium 100 mg capsule 100 mg PO BID #60 caps 09/09/24 polyethylene glycol 3350 17 gram 17 g PO DAILY #30 ea 09/09/24 oral powder packet (Miralax) aspirin 81 mg tablet 81 mg PO DAILY #30 tabs 09/23/24 divalproex 250 mg tablet,extended 250 mg PO HS #30 tabs 09/23/24 release 24 hr divalproex 500 mg tablet,delayed 500 mg PO QAM #30 tabs 09/23/24 release Results & Data (ED) Vital Signs Vital Signs - 24 hr 10/11/24 18:32 10/11/24 18:33 Temperature 36.9 C Temperature Source Oral Pulse Rate 65 70 Respiratory Rate 19 Respiratory Effort / Characteristics Non-Labored Respiratory Depth Normal Blood Pressure 123/79 Blood Pressure Mean 93 Pulse Oximetry 92 Oxygen Delivery Method Room Air Sepsis Recent Fever Within 48 Hours No Sepsis New/Unexplained Change in Mental Status No Sepsis Action Taken by Nursing No Action Required Home Medications Current Medication List: was personally reviewed by me Laboratory Data Attestation: I reviewed the patient's lab results. 10/12/24 07:15 10/12/24 07:15 Lab Results 10/11/24 10/11/24 10/11/24 Range/Units 19:20 20:05 20:21 WBC 5.52 (4.8-10.8) K/ul RBC 3.93 L (4.20-5.40) M/uL Hgb 12.4 (12.0-16.0) g/dl Hct 36.0 L (37.0-47.0) % MCV 91.6 (80.0-100.0) fL MCH 31.6 (25.0-34.0) pg MCHC 34.4 (32.0-36.0) g/dL RDW Std Deviation 45.7 (36.4-46.3) fL RDW Coeff of Juliet 13.7 (11.5-14.5) % Plt Count 153 (130-400) K/uL MPV 8.8 L (9.4-12.4) fL Immature Gran % (Auto) 0.4 % Neut % (Auto) 57.0 % Lymph % (Auto) 30.1 % [place] % (Auto) 12.0 % Eos % (Auto) 0.0 % Baso % (Auto) 0.5 % Neut # (Auto) 3.15 (1.40-6.50) K/uL Lymph # (Auto) 1.66 (1.20-3.40) K/uL [place] # (Auto) 0.66 H (0.11-0.59) K/uL Eos # (Auto) 0.00 (0.00-0.50) K/uL Baso # (Auto) 0.03 (0.00-0.20) K/uL Immature Gran # (Auto) 0.02 (0.01-0.20) K/uL PT 10.9 (9.0-12.0) Seconds INR 1.0 (0.9-1.1) Sodium 130 L (136-145) mmol/L Potassium 4.4 (3.5-5.1) mmol/L Chloride 94 L (98-107) mmol/L Carbon Dioxide 30 (21-32) mmol/L Anion Gap 6 (3-11) BUN 10 (6-23) mg/dl Creatinine 0.80 (0.6-1.2) mg/dl Est Cr Clr Drug Dosing 69.0 ml/min eGFR 81.21 BUN/Creatinine Ratio 12.5 (10-20) Glucose 109 H (70-99(Fasting)) mg/dl Osmolality 276 L (280-300) mOsm/kg Calcium 10.6 H (8.6-10.3) mg/dl Magnesium 1.9 (1.7-2.4) mg/dl Total Bilirubin 0.8 (0.2-1.0) mg/dl AST 22 (13-39) U/L ALT 25 (7-52) U/L Alkaline Phosphatase 61 (34-104) U/L Ammonia 24.0 (18-72) umol/L Total Protein 7.9 (6.0-8.3) gm/dl Albumin 4.3 (3.4-5.0) gm/dl Globulin 3.6 (2.5-4.0) gm/dl Albumin/Globulin Ratio 1.2 (0.9-2) Vitamin B12 > 1500 H (180-914) pg/ml TSH 0.979 (0.300-4.500) uIu/ml Urine Color Yellow Urine Appearance Clear (Clear) Urine pH 8.5 H (4.5-7.5) Ur Specific Chandler 1.012 (1.000-1.030) Urine Protein Negative (Negative) Urine Glucose (UA) Negative (Negative) Urine Ketones Trace H (Negative) Urine Blood Negative (Negative) Urine Nitrite Negative (Negative) Urine Bilirubin Negative (Negative) Urine Urobilinogen Negative (Negative) Ur Leukocyte Esterase Trace H (Negative) Urine WBC (Auto) 0-5 (0-5) /hpf Urine RBC (Auto) 0-2 (0-2) /hpf U Hyaline Cast (Auto) 0-2 (0-2) /lpf U Epithel Cells (Auto) 0-2 (0-2) /hpf Urine Bacteria (Auto) None Seen (None Seen) Urine Osmolality 387 L (500-800) mOsm/kg Ur Random Sodium 94 mmol/L Urine Comment Valproic Acid 48 L (50-100) mcg/ml Administered Medications Aspirin (Aspirin 81 Mg Ectab) 81 mg PO DAILY [facility] Stop: 11/11/24 08:59 Last Admin: 10/12/24 08:16 Dose: 81 mg Documented By: KIARA Atorvastatin Calcium (Atorvastatin 40 Mg Tab) 40 mg PO DAILY [facility] Stop: 11/11/24 08:59 Last Admin: 10/12/24 08:16 Dose: 40 mg Documented By: KIARA Divalproex Sodium (Divalproex Delay Release 500 Mg Tab) 500 mg PO QA [facility] Stop: 11/11/24 08:59 Last Admin: 10/12/24 08:16 Dose: 500 mg Documented By: KIARA Divalproex Sodium (Divalproex Extended Release 250 Mg Tabcr) 250 mg PO HS [facility] Stop: 11/10/24 22:45 Last Admin: 10/12/24 20:46 Dose: 250 mg Documented By: Admin: 10/11/24 23:33 Dose: 250 mg Documented By: DORON Docusate Sodium (Docusate Sodium 100 Mg Cap) 100 mg PO BID [facility] Stop: 11/11/24 08:59 Last Admin: 10/12/24 20:46 Dose: 100 mg Documented By: Admin: 10/12/24 08:19 Dose: 100 mg Documented By: KIARA Levothyroxine Sodium (Levothyroxine Sodium 50 Mcg Tablet) 50 mcg PO DAILYBB [facility] Stop: 11/11/24 06:29 Last Admin: 10/12/24 06:04 Dose: 50 mcg Documented By: DORON Melatonin (Melatonin 3 Mg Tab) 3 mg PO HS PRN PRN Reason: Sleep Stop: 11/10/24 22:45 Last Admin: 10/11/24 23:32 Dose: 3 mg Documented By: DORON Montelukast Sodium (Montelukast Sodium 10 Mg Tablet) 10 mg PO DAILY [facility] Stop: 11/11/24 08:59 Last Admin: 10/12/24 08:16 Dose: 10 mg Documented By: KIARA Pantoprazole Sodium (Pantoprazole 40 Mg Tab) 40 mg PO QAM [facility] Stop: 11/11/24 08:59 Last Admin: 10/12/24 08:16 Dose: 40 mg Documented By: KIARA Potassium Chloride (Potassium Chloride Crtab 20 Meq Tabcr) 20 meq PO QAM [facility] Stop: 11/11/24 08:59 Last Admin: 10/12/24 08:19 Dose: 20 meq Documented By: KIARA Discontinued Medications Gadobutrol (Gadobutrol 65ml Vial) 8 ml IV ONCE ONE Stop: 10/12/24 20:45 Last Admin: 10/12/24 20:45 Dose: 8 ml Documented By: KEVIN Sodium Chloride (Nss) 500 mls @ 999 mls/hr IV .Q31M ONE Stop: 10/11/24 19:41 Last Infusion: 10/11/24 21:34 Dose: Infused Documented By: Admin: 10/11/24 20:23 Dose: 999 mls/hr Documented By: PHIL Sodium Chloride (Nss) 1,000 mls @ 100 mls/hr IV .Q10H [facility] Stop: 10/12/24 08:45 Last Infusion: 10/12/24 09:56 Dose: Infused Documented By: Admin: 10/11/24 23:43 Dose: 100 mls/hr Documented By: DORON Imaging Data Radiologist's Impression: Chest X-Ray 10/11/24 19:11 Exam(s): XR CXR 1 VIEW EXAM: XR Chest, 1 View CLINICAL HISTORY: Reason for exam: weakness. TECHNIQUE: Frontal view of the chest. COMPARISON: No relevant prior studies available. FINDINGS: Lungs: Unremarkable. No consolidation. Pleural space: Unremarkable. No pneumothorax. Heart: Unremarkable. No cardiomegaly. Mediastinum: Unremarkable. Normal mediastinal contour. Bones/joints: The bones are osteopenic. No acute fracture. IMPRESSION: No acute pulmonary process identified Electronically signed by: Andrews Peterson MD 10/11/24 21:[address] 10/11/24 19:11 CT HEAD: HISTORY: Headaches TECHNIQUE: Noncontrast CT examination of the head is performed. Coronal and sagittal reformats were created. COMPARISON: FINDINGS: There is no significant change in the hypodense extra-axial collection overlying the left frontoparietal convexity measuring up to 6 mm in maximal thickness. No significant mass effect or midline shift. There is no evidence of acute intracranial hemorrhage. The ventricular system is midline and symmetric. No evidence of acute major vascular territory infarction. Redemonstrated encephalomalacia in the right anterior and middle cranial fossae with overlying craniotomy. Small chronic lacunar infarct of the left thalamus again seen. Unchanged mineralization of the right paramedian gary. No calvarial fracture is identified. The visualized paranasal sinuses. Small right mastoid fluid again seen IMPRESSION: No acute intracranial process identified. No significant change in the hypodense extra-axial collection overlying the left frontoparietal convexity measuring up to 6 mm in maximal thickness. Chronic findings as above Electronically signed by Kamar Scott 10-11-2024 7:56 PM Discharge Plan Visit Data Chief Complaint: Confusion Stated Complaint: AMS, FALL, UTI ED Provider: Joseph Macdonald Discharge Problem: Generalized weakness, Acute hyponatremia, SDH (subdural hematoma) Patient Disposition: Admitted As Inpatient Condition: Good Discharge Instructions Interventions: ED Discharge Assessment Last Done: 10/11/24 22:19
[2024-10-11 19:51] LABS: Basophils # (auto) 0.03 K/uL (0.00-0.20); Basophils % (auto) 0.5 %; Hemoglobin 12.4 g/dl (12.0-16.0); Immature Granulocytes # (auto) 0.02 K/uL (0.01-0.20); Immature Granulocytes % (auto) 0.4 %; Lymphocytes # (auto) 1.66 K/uL (1.20-3.40); Lymphocytes % (auto) 30.1 %; Mean Corpuscular Hemoglobin 31.6 pg (25.0-34.0); Mean Corpuscular Hgb Conc 34.4 g/dL (32.0-36.0); Mean Corpuscular Volume 91.6 fL (80.0-100.0); Mean Platelet Volume 8.8 fL (9.4-12.4); Monocytes # (auto) 0.66 K/uL (0.11-0.59); Neutrophils # (auto) 3.15 K/uL (1.40-6.50); Platelet Count 153 K/uL (130-400); RDW Coefficient of Variation 13.7 % (11.5-14.5); RDW Standard Deviation 45.7 fL (36.4-46.3); Red Blood Count 3.93 M/uL (4.20-5.40); White Blood Count 5.52 K/ul (4.8-10.8)
--- NOTE | 2024-10-11 19:57 | CT Scan Report ---
CT HEAD: HISTORY: Headaches TECHNIQUE: Noncontrast CT examination of the head is performed. Coronal and sagittal reformats were created. COMPARISON: FINDINGS: There is no significant change in the hypodense extra-axial collection overlying the left frontoparietal convexity measuring up to 6 mm in maximal thickness. No significant mass effect or midline shift. There is no evidence of acute intracranial hemorrhage. The ventricular system is midline and symmetric. No evidence of acute major vascular territory infarction. Redemonstrated encephalomalacia in the right anterior and middle cranial fossae with overlying craniotomy. Small chronic lacunar infarct of the left thalamus again seen. Unchanged mineralization of the right paramedian gary. No calvarial fracture is identified. The visualized paranasal sinuses. Small right mastoid fluid again seen IMPRESSION: No acute intracranial process identified. No significant change in the hypodense extra-axial collection overlying the left frontoparietal convexity measuring up to 6 mm in maximal thickness. Chronic findings as above Electronically signed by Kamar Scott 10-11-2024 7:56 PM
[2024-10-11 20:07] LABS: Albumin Globulin Ratio 1.2 (0.9-2); Albumin Level 4.3 gm/dl (3.4-5.0); BUN Creatinine Ratio 12.5 (10-20); Bilirubin,Total 0.8 mg/dl (0.2-1.0); Calcium 10.6 mg/dl (8.6-10.3); Globulin 3.6 gm/dl (2.5-4.0); Magnesium 1.9 mg/dl (1.7-2.4); Potassium 4.4 mmol/L (3.5-5.1); Total Protein 7.9 gm/dl (6.0-8.3)
[2024-10-11 20:21] LABS: Appearance Urine Clear (Clear); Bacteria Urine Automated None Seen (None Seen); Bilirubin Urine Negative (Negative); Blood Urine Negative (Negative); Cast Urine Automated 0-2 /lpf (0-2); Color Urine Yellow; Epithelial Cell Urine Auto 0-2 /hpf (0-2); Glucose Urine UA Negative (Negative); Ketones Urine Trace (Negative); Leukocyte Esterase Urine Trace (Negative); Nitrite Urine Negative (Negative); Protein Urine Negative (Negative); RBC Urine Automated 0-2 /hpf (0-2); Specific Gravity Urine 1.012 (1.000-1.030); Urobilinogen Urine Negative (Negative); WBC Urine Automated 0-5 /hpf (0-5); pH Urine 8.5 (4.5-7.5)
[2024-10-11 20:22] LABS: Thyroid Stimulating Hormone 0.979 uIu/ml (0.300-4.500)
[2024-10-11] MEDS: SODIUM CHLORIDE 0.9% 500 ML IV ONE (20:23)
[2024-10-11 20:24] LABS: Prothrombin Time 10.9 Seconds (9.0-12.0)
--- NOTE | 2024-10-11 21:18 | History & Physical Report ---
Date of Service October 11, 2024 Assessment & Plan (1) Ambulatory dysfunction: (2) Fall: (3) SDH (subdural hematoma): (4) Hyponatremia: Plan Patient is a 64-year-old female with past medical history of seizures, CVA, brain tumor resection 2000, chronic hyponatremia, hypothyroidism, hyp erlipidemia, GERD, and recent subdural hematoma 10/04 that was suspected to be be subacute after fall. Patient presented via EMS today after a fallhead CT shows no change in hypodense collection, laboratories show NA 130, patient reportedly at baseline similar to hip last week. She is being admitted for ambulatory dysfunction and confusion - concern that she is unable to care for herself at home. #ambulatory dysfunction/fall/confusion Patient oriented to name only. Head CT shows no change in hypodense collection, laboratories essentially WNL other than chronic hyponatremia TSH WNL, folate/22 WNL, ammonia WNL. No signs of infectious origin at time of admission no leukocytosis, VSS, afebrile, UA negative, CXR negative. Mental status may be patient's new baseline with recent subdural hematoma. Valproic acid and B12 level ordered given recent Depakote reduction and elevated B12 08/30 - replete sodium as below Neurochecks every 4 hours - Patient with dry mucous membranes and sleeping frequently on exam (concern for adequate p.o. fluid intake)500 mL NSS bolus in ED, continue fluids resuscitation with NSS at 100 mL/hour x 1L - aspiration and fall precautions - PT/OT consulted - note that patient has had recurrent admissions for ambulatory dysfunction/falls however has returned home at discharge - may need to consider placement #hyponatremia - acute on chronichistory of suspected SIADH 2/2 medications however also hypotonic hyponatremia with poor p.o. intake NA 130 on admission Urine sodium, urine osmole, serum osmole ordered - Consistent with hypotonic hyponatremia but given urine sodium and urine osmole elevated a.m. cortisol level ordered Received 500 mL NSS bolus in ED, IVF as above with NSS 1 L overnight Consider sodium tablets - trend BMP #history of seizures/CVA/brain tumor resection 2000. - Noted the patient is still on daily baby aspirin even after subdural hematoma, continue. - continue statin - Continue Depakote; Unclear as to be if patient got a.m. dose 10/11 will order p.m. dose and valproic acid level - of note patient previously was on 500 Mg twice daily however transition to 500 Mg QAM and 250 Mg QPM on discharge 09/23 given persistent hyponatremia #hypothyroidism TSH WNL, continue levothyroxine. #GERD - continue PPI VTE ppx: SCDs, For chemical PPx with recent subdural hematoma Dispo: med surg Unable to assess CODE STATUS given patient is disoriented. Made full code as per recent admission. Day team to facilitate reaching out to patient's family during daylight hours to verify this and goals of careinpatient rehab versus long-term care? Admission and Anticipated Discharge Date Admission Date: 10/11/24 History of Present Illness Chief Complaint: confusion Primary Care Provider: Aleshia Morton MD Patient is a 64-year-old female with past medical history of seizures, CVA, brain tumor resection 2000, chronic hyponatremia, hypothyroidism, hyperlipi demia, GERD, and recent subdural hematoma 10/04 that was suspected to be subacute after fall. Patient presented via EMS today after a fallhead CT shows no change in hypodense collection, laboratories show NA 130, patient reportedly at baseline similar to last week. She is being admitted for ambulatory dysfunction and confusion and unable to care for herself at home. Patient seen at bedside. There was no family present, it was reported that her called EMS however he has significant ambulatory dysfunction at baseline and has caregivers at home. They live at home alone together. Patient stated she is not sure why she came in, EMS reported that she fell. She stated she feels fine at bedside just tired and sleeping frequently on exam however responds to verbal stimuli. She has no complaintsno dizziness, lightheadedness, confusion, chest pain, shortness of breath, abdominal pain, numbness or tingling, extremity pain. She stated she is unsure if she got her home medications today. she is oriented to her name only, cannot remember her birthdate or the current month. She was aware that she was in the hospital however did not know which one. Allergies Allergy/AdvReac Type Severity Reaction Status Date / Time Sulfa (Sulfonamide Allergy Intermediate ITCHING, Verified 10/11/24 20:28 Antibiotics) BURNING Home Medications Medication Instructions Recorded Confirmed Type acetaminophen 325 mg tablet 650 mg PO Q6 PRN Fever Or Pain 01/19/23 10/11/24 History (Tylenol) levothyroxine 50 mcg tablet 50 mcg PO DAILY #90 tabs 03/30/24 10/11/24 Rx docusate sodium 100 mg capsule 100 mg PO BID #60 caps 09/09/24 10/11/24 Rx polyethylene glycol 3350 17 gram 17 g PO DAILY #30 ea 09/09/24 10/11/24 Rx oral powder packet (Miralax) montelukast 10 mg tablet 10 mg PO DAILY 09/12/24 10/11/24 History (Singulair) omeprazole 20 mg capsule,delayed 20 mg PO DAILY 09/12/24 10/11/24 History release Antifungal Cream 1 applic topical BID 09/16/24 10/11/24 History atorvastatin 40 mg tablet 40 mg PO DAILY 09/16/24 10/11/24 History miconazole nitrate 2 % topical 1 applic topical BID 09/16/24 10/11/24 History powder (Antifungal (miconazole)) miconazole nitrate 2 % topical 1 applic topical UD PRN skin 09/16/24 10/11/24 History powder (Antifungal (miconazole)) breakdown potassium chloride 20 mEq 20 meq PO QAM 09/16/24 10/11/24 History tablet,extended release aspirin 81 mg tablet 81 mg PO DAILY #30 tabs 09/23/24 10/11/24 Rx divalproex 250 mg tablet,extended 250 mg PO HS #30 tabs 09/23/24 10/11/24 Rx release 24 hr divalproex 500 mg tablet,delayed 500 mg PO QAM #30 tabs 09/23/24 10/11/24 Rx release Past Med/Surg History Problem List (Updated 10/12/24 @ 22:38 by Joseph Macdonald MD) Hyponatremia Fall Ambulatory dysfunction Weakness (Acute) Acute UTI (Acute) SDH (subdural hematoma) (Acute) Hypomagnesemia (Acute) Acute hyponatremia (Acute) Elevated lactic acid level (Acute) Acute confusion (Acute) Dehydration Delirium Generalized weakness (Acute) Type 2 diabetes mellitus (Chronic) Hypothyroidism (Chronic) Hyperlipidemia (Chronic) B12 deficiency (Chronic) Medical History Acute encephalopathy Allergic rhinitis Chronic sinusitis Acute hyponatremia Acute confusion Fecal incontinence Recurrent herpes labialis Weakness Generalized weakness Diarrhea Esophageal reflux Seizure disorder Hypomagnesemia Vitamin D deficiency History of CVA (cerebrovascular accident) lacunar infarct 09/2020>STILL HAS NUMBNESS IN RT HAND AND RT SIDE OF FACE Multiple pulmonary nodules stable on imaging - no further workup required Hx of brain cancer Right temporal glioma, s/p surgery, 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 Surgical History History of cataract surgery right Hx of colonoscopy Hx of tubal ligation Hx of section [facility] Family History Grandmother Family history of diabetes mellitus Father Myocardial infarction Other No significant family history Denies family history of Ovarian cancer Prostate cancer Breast cancer Colorectal cancer Social History Smoking Status: Never smoker Tobacco Type: Smokeless Tobacco (Dip or Chew) Second Hand Exposure: No; Do You Dip or Chew Tobacco: No; Hx Alcohol Use: No Hx Substance Use: No Preferred Language: Spanish Communication Ability: Effective Communication Ability Comment: TROUBLE HEARING OUT OF RIGHT SIDE Railroad 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 Childhood Exposure to Second-Hand Smoke: Yes Diet: regular caffeine: Yes (diet soda) Dental Care, Regularly: No Physical Activity Frequency: Does not Exercise Seatbelt Use: always Sunscreen Use: Yes Assistive Devices: Cane and Stair Lift Review of Systems Review of Systems: see HPI Physical Exam Physical Exam: The patient is tired, responds to verbal stimuli, oriented to name only. HEENT- EOMI, mucous membranes dry. Hearing grossly intact. Heart-normal S1 and S2. No murmurs, rubs or gallops. Lungs-clear bilaterally, no respiratory distress, no accessory muscle use. Abdomen-normal bowel sounds and soft. No ascites noted. Non-tender. Extremities- no clubbing, cyanosis, or edema. Rheumatologic-normal range of motion. Results & Data Results & Data Vital Signs (Past 12 Hours) Vital Signs Temp Pulse Pulse Resp BP BP Pulse Ox 10/11/24 20:32 61 19 127/64 100 10/11/24 20:25 10/11/24 20:00 57 L 14 103/68 100 10/11/24 19:19 59 L 13 97 10/11/24 18:33 36.9 C 70 19 123/79 92 10/11/24 18:32 65 10/11/24 18:30 66 13 123/79 96 O2 Del Method O2 Flow Rate 10/11/24 20:32 Room Air 10/11/24 20:25 Room Air 0 10/11/24 20:00 Room Air 10/11/24 19:19 Room Air 10/11/24 18:33 Room Air 10/11/24 18:32 10/11/24 18:30 Room Air Laboratory Results Reviewed CBC, CMP, PT/INR, TSH, magnesium, ammonia, UA Diagnostic Findings reviewed head CT and CXR Medications Administered ED500 mL NSS bolus ECG Additional Comments: ordered Code Status & VTE Plan Code Status unable to assess given disoriented - will make full code as per recent admission VTE Prophylaxis Plan VTE Prophylaxis will be ordered: Yes Supervising Physician Co-Signing Physician Notes Patient seen and examined, chart reviewed, case discussed with STEFF De Los Santos and I agree with the assessment and plan as above PG Care Time/CCT Total # of Minutes Spent Total Time Spent with Patient: Total time spent is greater than 50% in coordination of care (as documented) at patient's floor/unit and/or counseling patient: Coding Level of Care Code 99004 INT INP/OBS CARE 3/75MIN Diagnoses Ambulatory dysfunction R26.2 Fall W19.XXXA SDH (subdural hematoma) S06.5XAA Hyponatremia E87.1
--- NOTE | 2024-10-11 21:43 | XRay Report ---
Exam(s): XR CXR 1 VIEW EXAM: XR Chest, 1 View CLINICAL HISTORY: Reason for exam: weakness. TECHNIQUE: Frontal view of the chest. COMPARISON: No relevant prior studies available. FINDINGS: Lungs: Unremarkable. No consolidation. Pleural space: Unremarkable. No pneumothorax. Heart: Unremarkable. No cardiomegaly. Mediastinum: Unremarkable. Normal mediastinal contour. Bones/joints: The bones are osteopenic. No acute fracture. IMPRESSION: No acute pulmonary process identified Electronically signed by: Andrews Peterson MD 10/11/24 21:41 PM
[2024-10-11] MEDS ORDERED: ONDANSETRON INJ 2 MG/ML 2 ML VIAL IV PRN (22:46)
[2024-10-11] MEDS: MELATONIN 3 MG TAB PO PRN (23:32)
[2024-10-11] MEDS: DIVALPROEX EXTENDED RELEASE 250 MG TABCR PO SCH (23:33)
[2024-10-11] MEDS: SODIUM CHLORIDE 0.9% 1,000 ML IV SCH (23:43)
[2024-10-12] MEDS: LEVOTHYROXINE SODIUM 50 MCG TABLET PO SCH (06:04)
[2024-10-12 07:51] LABS: Basophils # (auto) 0.01 K/uL (0.00-0.20); Basophils % (auto) 0.2 %; Hematocrit (blood only) 29.7 % (37.0-47.0); Immature Granulocytes # (auto) 0.02 K/uL (0.01-0.20); Immature Granulocytes % (auto) 0.5 %; Lymphocytes # (auto) 1.59 K/uL (1.20-3.40); Lymphocytes % (auto) 39.2 %; Mean Corpuscular Hemoglobin 31.4 pg (25.0-34.0); Mean Corpuscular Hgb Conc 33.7 g/dL (32.0-36.0); Mean Corpuscular Volume 93.4 fL (80.0-100.0); Mean Platelet Volume 9.1 fL (9.4-12.4); Monocytes # (auto) 0.64 K/uL (0.11-0.59); Monocytes % (auto) 15.8 %; Neutrophils % (auto) 44.3 %; Platelet Count 95 K/uL (130-400); RDW Coefficient of Variation 13.6 % (11.5-14.5); RDW Standard Deviation 46.2 fL (36.4-46.3); Red Blood Count 3.18 M/uL (4.20-5.40); White Blood Count 4.06 K/ul (4.8-10.8)
[2024-10-12 08:11] LABS: BUN Creatinine Ratio 15.5 (10-20); Creatinine Clr Calc Pharmacy 88.5 ml/min; Magnesium 1.8 mg/dl (1.7-2.4); Phosphorus 3.9 mg/dl (2.5-4.9)
[2024-10-12] MEDS: MONTELUKAST SODIUM 10 MG TABLET PO SCH (08:16)
[2024-10-12] MEDS: PANTOprazole 40 MG TAB PO SCH (08:16)
[2024-10-12] MEDS: ATORVASTATIN 40 MG TAB PO SCH (08:16)
[2024-10-12] MEDS: ASPIRIN 81 MG ECTAB PO SCH (08:16)
[2024-10-12] MEDS: DIVALPROEX DELAY RELEASE 500 MG TAB PO SCH (08:16)
[2024-10-12] MEDS: DOCUSATE SODIUM 100 MG CAP PO SCH (08:19)
[2024-10-12] MEDS: POTASSIUM CHLORIDE CRTAB 20 MEQ TABCR PO SCH (08:19)
--- NOTE | 2024-10-12 18:45 | Hospitalist Progress Note ---
Date of Service October 12, 2024 Assessment & Plan (1) Ambulatory dysfunction: (2) Fall: (3) SDH (subdural hematoma): (4) Hyponatremia: (5) Type 2 diabetes mellitus: (6) Hypothyroidism: (7) Hyperlipidemia: (8) B12 deficiency: (9) Seizure disorder: (10) History of CVA (cerebrovascular accident): (11) Hx of brain cancer: (12) Pancytopenia: Plan 64yo female with history of seizure disorder, prior CVA, brain tumor resection 2000 (right temporal lobe glioma), chronic hyponatremia, hypothyroidism, hyperlipidemia, GERD, and recent subdural hematoma 10/04/24 requiring transfer to [facility]. Patient presented via EMS after another fall at home (lives with ). Head CT shows no changes in recent SDH. Admitted for ambulatory dysfunction and confusion - concern that she is unable to care for herself at home. #ambulatory dysfunction/fall/confusion -Head CT stable -Na level today stable/improved at 135 -TSH wnl -ammonia wnl -recent B12 level not low -depakote level not in toxic range -whole blood B1 level in May 2024 wnl -PT/OT consults requested -she has had recurrent admissions for ambulatory dysfunction/falls - likely needs placement -in light of prior brain tumor in 2000, seizure d/o, etc plan to obtain MRI brain w/ and w/o contrast - rule out tumor recurrence, subacute CVA, etc. -also obtain EEG to rule out active seizures (especially since her depakote dosage was recently reduced) #recent left-sided SDH - -stable on head CT this admission -2nd to recent fall with head injury -nonoperative management while at [facility] [place] in late September #hyponatremia - acute on chronic -urine osm 387 -urine Na 94 -serum osm 276 -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 -cortisol & TSH Wnl -plan repeat BMP next 1-2 days for stability #history of seizures/CVA/brain tumor resection (2000 - temporal glioma on right) -continue Depakote; valproic acid level acceptable at 48 -continue Depakote at 500 Mg QAM and 250 Mg QPM #hypothyroidism -TSH WNL -continue levothyroxine. #GERD - -continue PPI #pancytopenia - -seen by heme/onc on 08/31/24 -thought 2nd to chronic depakote usage -B12/TSH/folate all wnl -consider copper level to be complete -trend the CBC for stability #DVT proph - -in light of recent SDH defer on chemical means dispo planning - appreciate social work assistance Admission and Anticipated Discharge Date Admission Date: October 11, 2024 Subjective patient w/o any complaints watching TV during the visit can't give much in the way of history eating ok no seizure activity by report denies headache Review of Systems Review of Systems: CV - no chest pain pulm - no dyspnea at rest GI - no abd pain Physical Exam Physical Exam: gen - NAD, lying in bed head - no signs of trauma eyes - right eye - patient keeps it closed, but can easily open it; with extraocular muscle movements ?mild impairment of medial rectus muscle on left?; no nystagmus; PERRL neck - no JVD mouth - MMM, no tongue bite mejias heart - RRR, s1 s2 lungs - CTA b/l abd - soft NT ND BS+ ext - no edema, pulses 2+ b/l neuro - no facial droop; right eye findings as above; strength 5/5 x 4 exts Results & Data Results & Data Vital Signs (Past 12 Hours) Vital Signs Temp Pulse Resp BP Pulse Ox O2 Del Method 10/12/24 15:39 36.8 C 56 L 17 92/55 L 95 Room Air 10/12/24 07:51 36.7 C 80 17 102/66 93 Room Air Laboratory Results Laboratory Results - last 24 hr 10/11/24 10/11/24 10/11/24 19:20 20:05 20:21 WBC 5.52 RBC 3.93 L Hgb 12.4 Hct 36.0 L MCV 91.6 MCH 31.6 MCHC 34.4 RDW Std Deviation 45.7 RDW Coeff of Juliet 13.7 Plt Count 153 MPV 8.8 L Immature Gran % (Auto) 0.4 Neut % (Auto) 57.0 Lymph % (Auto) 30.1 [place] % (Auto) 12.0 Eos % (Auto) 0.0 Baso % (Auto) 0.5 Neut # (Auto) 3.15 Lymph # (Auto) 1.66 [place] # (Auto) 0.66 H Eos # (Auto) 0.00 Baso # (Auto) 0.03 Immature Gran # (Auto) 0.02 PT 10.9 INR 1.0 Sodium 130 L Potassium 4.4 Chloride 94 L Carbon Dioxide 30 Anion Gap 6 BUN 10 Creatinine 0.80 Est Cr Clr Drug Dosing 69.0 eGFR 81.21 BUN/Creatinine Ratio 12.5 Glucose 109 H Osmolality 276 L Calcium 10.6 H Phosphorus Magnesium 1.9 Total Bilirubin 0.8 AST 22 ALT 25 Alkaline Phosphatase 61 Ammonia 24.0 Total Protein 7.9 Albumin 4.3 Globulin 3.6 Albumin/Globulin Ratio 1.2 Vitamin B12 > 1500 H TSH 0.979 Cortisol AM Sample Urine Color Yellow Urine Appearance Clear Urine pH 8.5 H Ur Specific [place] 1.012 Urine Protein Negative Urine Glucose (UA) Negative Urine Ketones Trace H Urine Blood Negative Urine Nitrite Negative Urine Bilirubin Negative Urine Urobilinogen Negative Ur Leukocyte Esterase Trace H Urine WBC (Auto) 0-5 Urine RBC (Auto) 0-2 U Hyaline Cast (Auto) 0-2 U Epithel Cells (Auto) 0-2 Urine Bacteria (Auto) None Seen Urine Osmolality 387 L Ur Random Sodium 94 Urine Comment Valproic Acid 48 L 10/12/24 07:15 WBC 4.06 L RBC 3.18 L Hgb 10.0 L Hct 29.7 L MCV 93.4 MCH 31.4 MCHC 33.7 RDW Std Deviation 46.2 RDW Coeff of Juliet 13.6 Plt Count 95 L MPV 9.1 L Immature Gran % (Auto) 0.5 Neut % (Auto) 44.3 Lymph % (Auto) 39.2 [place] % (Auto) 15.8 Eos % (Auto) 0.0 Baso % (Auto) 0.2 Neut # (Auto) 1.80 Lymph # (Auto) 1.59 [place] # (Auto) 0.64 H Eos # (Auto) 0.00 Baso # (Auto) 0.01 Immature Gran # (Auto) 0.02 PT INR Sodium 135 L Potassium 4.0 Chloride 102 Carbon Dioxide 28 Anion Gap 5 BUN 9 Creatinine 0.58 L Est Cr Clr Drug Dosing 88.5 eGFR 99.74 BUN/Creatinine Ratio 15.5 Glucose 102 H Osmolality Calcium 9.0 Phosphorus 3.9 Magnesium 1.8 Total Bilirubin AST ALT Alkaline Phosphatase Ammonia Total Protein Albumin Globulin Albumin/Globulin Ratio Vitamin B12 TSH Cortisol AM Sample 13.01 Urine Color Urine Appearance Urine pH Ur Specific [place] Urine Protein Urine Glucose (UA) Urine Ketones Urine Blood Urine Nitrite Urine Bilirubin Urine Urobilinogen Ur Leukocyte Esterase Urine WBC (Auto) Urine RBC (Auto) U Hyaline Cast (Auto) U Epithel Cells (Auto) Urine Bacteria (Auto) Urine Osmolality Ur Random Sodium Urine Comment Valproic Acid PG Care Time/CCT Total # of Minutes Spent Total Time Spent with Patient: Total time spent is greater than 50% in coordination of care (as documented) at patient's floor/unit and/or counseling patient: Coding Level of Care Code 98975 SUB INP/OBS CARE 3/50MIN Diagnoses Ambulatory dysfunction R26.2 Fall W19.XXXA SDH (subdural hematoma) S06.5XAA Hyponatremia E87.1 Type 2 diabetes mellitus E11.9 Hypothyroidism E03.9 Hyperlipidemia E78.5 B12 deficiency E53.8 Seizure disorder G40.909 History of CVA (cerebrovascular accident) Z86.73 Hx of brain cancer Z85.841 Pancytopenia D61.818
[2024-10-12] MEDS: GADOBUTROL 65ML VIAL IV ONE (20:45)
--- NOTE | 2024-10-12 22:14 | Magnetic Resonance Report ---
Exam(s): MRI HEAD W/WO Contrast IV Amt: 8ml gadavist EXAM: MR Head Without and With Intravenous Contrast CLINICAL HISTORY: Reason for exam: h/o glioma, falls. TECHNIQUE: Magnetic resonance images of the head/brain without and with intravenous contrast in multiple planes. CONTRAST: Patient received 8ml gadavist of IV contrast COMPARISON: No relevant prior studies available. FINDINGS: Brain: There is a small left subdural, measuring 6.6 mm in maximal diameter. No evidence of midline shift. There are postsurgical changes in the anterior right temporal lobe with encephalomalacia and gliosis. There is thickening and increased enhancement of the dura the surgical bed and over the right frontal and parietal convexities, which may represent a postsurgical changes. There is a dilated perivascular space or remote ischemic injury of the left thalamus. No mass. No hemorrhage. No acute infarct. The flow voids at the base the brain are intact. The dural venous sinuses are patent. Ventricles: Unremarkable. No ventriculomegaly. Bones/joints: Status post right craniotomy. No acute fracture. Sinuses: Unremarkable as visualized. No acute sinusitis. Mastoid air cells: There is a mild amount of fluid in the right mastoid air cells and tiny amount of fluid in the left mastoid air cells. No mastoid effusion. Orbits: Status post right lens replacement. IMPRESSION: There is a small left subdural hematoma measuring 6.6 mm in maximal diameter without evidence of midline shift. Recommend short-term interval follow-up head CT to evaluate for stability. Communications: Call Doctor Above results Electronically signed by: Monica Aiken MD 10/12/24 22:13 PM
[2024-10-13] MEDS: NYSTATIN POWDER 15GM BTL EXT SCH (10:34)
--- NOTE | 2024-10-13 20:56 | Hospitalist Progress Note ---
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 Patient presented via EMS after another unwitnessed fall at home (lives with ). Head CT showed no changes in recent small, left-sided SDH. Admitted for ambulatory dysfunction and confusion - concern that she is unable to care for herself at home. #ambulatory dysfunction/fall/confusion -Head CT stable -Na level stable/improved at 135 -TSH wnl -ammonia wnl -recent B12 level not low -depakote level not in toxic range -whole blood B1 level in May 2024 wnl -MRI brain w/ and w/o contrast - NO recurrence of right-sided glioma; NO subacute CVA; STABLE, small SDH on left with no new areas of ICH -PT/OT consults requested -she has had recurrent admissions for ambulatory dysfunction/falls - likely needs placement -EEG to rule out active seizures was been completed but report is still pending #recent left-sided SDH - -stable on head CT this admission as well as MRI brain performed last pm -2nd to recent fall with head injury -nonoperative management while at [facility] [place] -will need repeat head CT in ~2 weeks to ensure stability #hyponatremia - acute on chronic -urine osm 387 -urine Na 94 -serum osm 276 -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 -cortisol & TSH Wnl -most recent Na 135 -repeat BMP am for stability #history of seizures/CVA/brain tumor resection (2000 - temporal glioma on right) -continue Depakote; valproic acid level acceptable at 48 -continue Depakote at 500 Mg QAM and 250 Mg QPM #hypothyroidism -TSH WNL -continue levothyroxine. #GERD - -continue PPI #pancytopenia - -seen by heme/onc on 08/31/24 -thought 2nd to chronic depakote usage -B12/TSH/folate all wnl -check copper level to be complete -repeat CBC in AM for stability #DVT proph - -in light of recent SDH defer on chemical means dispo planning - appreciate social work assistance patient needs insurance - Medicare application to be performed placement at SNF??? will update family tomorrow Admission and Anticipated Discharge Date Admission Date: October 11, 2024 Subjective no events overnight resting in bed comfortably watching TV she was surprised she got thru her MRI without sedation we discussed the MRI that there was no tumor recurrence and that the SDH is stable on left she denies any new complaints Review of Systems Review of Systems: gen - NAD cv - no chest pain pulm - no dyspnea neuro - no headache; no focal motor weakness GI - no abd pain; + stool Physical Exam Physical Exam: gen - NAD, lying in bed comfortably - looks same as yesterday eyes - right eye - patient keeps it closed, but can easily open it neck - no JVD mouth - MMM heart - RRR, s1 s2, no murmur lungs - CTA b/l abd - soft NT ND BS+ ext - no edema, pulses 2+ b/l neuro - no facial droop; right eye findings as above; strength 5/5 x 4 exts Results & Data Results & Data Vital Signs (Past 12 Hours) Vital Signs Temp Pulse Resp BP Pulse Ox O2 Del Method 10/13/24 19:54 36.4 C 58 L 18 109/67 100 Room Air 10/13/24 15:25 36.3 C L 57 L 18 125/79 100 Room Air 10/13/24 09:00 Room Air Diagnostic Findings Brain MRI 10/12/24 18:37 CR Exam(s): MRI HEAD W/WO Contrast IV Amt: 8ml gadavist EXAM: MR Head Without and With Intravenous Contrast CLINICAL HISTORY: Reason for exam: h/o glioma, falls. TECHNIQUE: Magnetic resonance images of the head/brain without and with intravenous contrast in multiple planes. CONTRAST: Patient received 8ml gadavist of IV contrast COMPARISON: No relevant prior studies available. FINDINGS: Brain: There is a small left subdural, measuring 6.6 mm in maximal diameter. No evidence of midline shift. There are postsurgical changes in the anterior right temporal lobe with encephalomalacia and gliosis. There is thickening and increased enhancement of the dura the surgical bed and over the right frontal and parietal convexities, which may represent a postsurgical changes. There is a dilated perivascular space or remote ischemic injury of the left thalamus. No mass. No hemorrhage. No acute infarct. The flow voids at the base the brain are intact. The dural venous sinuses are patent. Ventricles: Unremarkable. No ventriculomegaly. Bones/joints: Status post right craniotomy. No acute fracture. Sinuses: Unremarkable as visualized. No acute sinusitis. Mastoid air cells: There is a mild amount of fluid in the right mastoid air cells and tiny amount of fluid in the left mastoid air cells. No mastoid effusion. Orbits: Status post right lens replacement. IMPRESSION: There is a small left subdural hematoma measuring 6.6 mm in maximal diameter without evidence of midline shift. Recommend short-term interval follow-up head CT to evaluate for stability. Communications: Call Doctor Above results Electronically signed by: Monica Aiken MD 10/12/24 22:13 PM PG Care Time/CCT Total # of Minutes Spent Total Time Spent with Patient: Total time spent is greater than 50% in coordination of care (as documented) at patient's floor/unit and/or counseling patient: Coding Level of Care Code 32254 SUB INP/OBS CARE 2/35MIN Diagnoses Ambulatory dysfunction R26.2 Fall W19.XXXA SDH (subdural hematoma) S06.5XAA Hyponatremia E87.1
[2024-10-14 09:54] LABS: Basophils # (auto) 0.02 K/uL (0.00-0.20); Basophils % (auto) 0.3 %; Hematocrit (blood only) 31.3 % (37.0-47.0); Hemoglobin 10.5 g/dl (12.0-16.0); Immature Granulocytes # (auto) 0.02 K/uL (0.01-0.20); Immature Granulocytes % (auto) 0.3 %; Lymphocytes # (auto) 1.11 K/uL (1.20-3.40); Lymphocytes % (auto) 18.8 %; Mean Corpuscular Hemoglobin 31.2 pg (25.0-34.0); Mean Corpuscular Hgb Conc 33.5 g/dL (32.0-36.0); Mean Corpuscular Volume 92.9 fL (80.0-100.0); Mean Platelet Volume 9.1 fL (9.4-12.4); Monocytes # (auto) 0.83 K/uL (0.11-0.59); Monocytes % (auto) 14.1 %; Neutrophils # (auto) 3.92 K/uL (1.40-6.50); Neutrophils % (auto) 66.5 %; Platelet Count 95 K/uL (130-400); RDW Coefficient of Variation 13.8 % (11.5-14.5); RDW Standard Deviation 45.7 fL (36.4-46.3); Red Blood Count 3.37 M/uL (4.20-5.40)
[2024-10-14 10:11] LABS: BUN Creatinine Ratio 13.2 (10-20); Calcium 9.8 mg/dl (8.6-10.3); Creatinine Clr Calc Pharmacy 75.5 ml/min
--- NOTE | 2024-10-14 19:53 | Hospitalist Progress Note ---
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 Patient presented via EMS after another unwitnessed fall at home (lives with ). Head CT showed no changes in recent small, left-sided SDH. Admitted for ambulatory dysfunction and confusion - concern that she is unable to care for herself at home. #ambulatory dysfunction/fall/confusion -Head CT stable -Na level stable -- 130-135 while here -TSH wnl -ammonia wnl -recent B12 level not low -depakote level not in toxic range -whole blood B1 level in May 2024 wnl -MRI brain w/ and w/o contrast - NO recurrence of right-sided glioma; NO subacute CVA; STABLE, small SDH on left with no new areas of ICH -PT/OT consults requested -she has had recurrent admissions for ambulatory dysfunction/falls - likely needs placement -EEG to rule out active seizures was been completed but report is still pending -check orthostatic BPs while here #recent left-sided SDH - -stable on head CT this admission as well as MRI brain performed last pm -2nd to recent fall with head injury -[place]operative management [place] [facility] [place] -will need repeat head CT in ~2 weeks to ensure stability #hyponatremia - acute on chronic -urine osm 387 -urine Na 94 -serum osm 276 -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 -cortisol & TSH Wnl -start NaCl 1gm daily to keep Na level stable #history of seizures/CVA/brain tumor resection (2000 - temporal glioma on right) -continue Depakote; valproic acid level acceptable at 48 -continue Depakote at 500 Mg QAM and 250 Mg QPM #hypothyroidism -TSH WNL -continue levothyroxine. #GERD - -continue PPI #pancytopenia - -seen by heme/onc on 08/31/24 -thought 2nd to chronic depakote usage -B12/TSH/folate all wnl -check copper level to be complete - sent/pending -repeat CBC in AM for stability #DVT proph - -in light of recent SDH defer on chemical means dispo planning - appreciate social work assistance patient needs insurance - Medicare application to be performed placement at SNF??? other?? updated pt's son by phone this evening, 10/14/24 reviewed all test results; informed him the EEG is pending Admission and Anticipated Discharge Date Admission Date: October 11, 2024 Subjective no events overnight watching TV denies any headache denies any new complaints asks about "going home" Review of Systems Review of Systems: cv - no cp, no orthopnea pulm - no dyspnea, no cough GI - no abd pain, no N/V Physical Exam Physical Exam: gen - NAD, lying in bed comfortably eyes - right eye - patient keeps it closed at times, but can easily open it neck - no JVD mouth - MMM heart - RRR, s1 s2, no murmur lungs - CTA b/l abd - soft NT ND BS+ ext - no edema, pulses 2+ b/l neuro - no facial droop; right eye findings as above; strength 5/5 x 4 exts Results & Data Results & Data Vital Signs (Past 12 Hours) Vital Signs Temp Pulse Resp BP Pulse Ox O2 Del Method 10/14/24 14:55 36.6 C 61 16 95/60 L 99 Room Air Laboratory Results Laboratory Results 10/14/24 09:38 WBC 5.90 RBC 3.37 L Hgb 10.5 L Hct 31.3 L MCV 92.9 MCH 31.2 MCHC 33.5 RDW Std Deviation 45.7 RDW Coeff of Juliet 13.8 Plt Count 95 L MPV 9.1 L Immature Gran % (Auto) 0.3 Neut % (Auto) 66.5 Lymph % (Auto) 18.8 [place] % (Auto) 14.1 Eos % (Auto) 0.0 Baso % (Auto) 0.3 Neut # (Auto) 3.92 Lymph # (Auto) 1.11 L [place] # (Auto) 0.83 H Eos # (Auto) 0.00 Baso # (Auto) 0.02 Immature Gran # (Auto) 0.02 Sodium 133 L Potassium 4.0 Chloride 98 Carbon Dioxide 30 Anion Gap 5 BUN 9 Creatinine 0.68 Est Cr Clr Drug Dosing 75.5 eGFR 95.99 BUN/Creatinine Ratio 13.2 Glucose 155 H Calcium 9.8 Total Creatine Kinase 15 L PG Care Time/CCT Total # of Minutes Spent Total Time Spent with Patient: Total time spent is greater than 50% in coordination of care (as documented) at patient's floor/unit and/or counseling patient: Coding Level of Care Code 93179 SUB INP/OBS CARE 2/35MIN Diagnoses Ambulatory dysfunction R26.2 Fall W19.XXXA SDH (subdural hematoma) S06.5XAA Hyponatremia E87.1
--- NOTE | 2024-10-14 23:04 | Electrocardiogram Report ---
Test Reason : Blood Pressure : */* mmHG Vent. Rate : 61 BPM Atrial Rate : 61 BPM P-R Int : 194 ms QRS Dur : 72 ms QT Int : 408 ms P-R-T Axes : 41 21 40 degrees QTcB Int : 410 ms Normal sinus rhythm Normal ECG When compared with ECG of 04-Oct-2024 14:50, No significant change was found Confirmed by Praveen Hines ([id number]) on 10/14/2024 11:04:13 PM Referred By: REFERRED SELF Confirmed By: Praveen Hines
--- NOTE | 2024-10-15 09:19 | Electroencephalogram ---
EEG Procedure Note Date of Service October 15, 2024 Start / End Times Start Time: 12:46 PM End Time: 1:06 PM Referring Physician Elsie History Evaluate for possible seizures, history of right temporal glioma resection, subdural hematoma Home Medication List Medication Instructions Recorded Confirmed Type acetaminophen 325 mg tablet 650 mg PO Q6 PRN Fever Or Pain 01/19/23 10/11/24 History (Tylenol) levothyroxine 50 mcg tablet 50 mcg PO DAILY #90 tabs 03/30/24 10/11/24 Rx docusate sodium 100 mg capsule 100 mg PO BID #60 caps 09/09/24 10/11/24 Rx polyethylene glycol 3350 17 gram 17 g PO DAILY #30 ea 09/09/24 10/11/24 Rx oral powder packet (Miralax) montelukast 10 mg tablet 10 mg PO DAILY 09/12/24 10/11/24 History (Singulair) omeprazole 20 mg capsule,delayed 20 mg PO DAILY 09/12/24 10/11/24 History release Antifungal Cream 1 applic topical BID 09/16/24 10/11/24 History atorvastatin 40 mg tablet 40 mg PO DAILY 09/16/24 10/11/24 History miconazole nitrate 2 % topical 1 applic topical BID 09/16/24 10/11/24 History powder (Antifungal (miconazole)) miconazole nitrate 2 % topical 1 applic topical UD PRN skin 09/16/24 10/11/24 History powder (Antifungal (miconazole)) breakdown potassium chloride 20 mEq 20 meq PO QAM 09/16/24 10/11/24 History tablet,extended release aspirin 81 mg tablet 81 mg PO DAILY #30 tabs 09/23/24 10/11/24 Rx divalproex 250 mg tablet,extended 250 mg PO HS #30 tabs 09/23/24 10/11/24 Rx release 24 hr divalproex 500 mg tablet,delayed 500 mg PO QAM #30 tabs 09/23/24 10/11/24 Rx release Inpatient Medication List Aspirin (Aspirin 81 Mg Ectab) 81 mg PO DAILY [facility] Stop: 11/11/24 08:59 Last Admin: 10/14/24 08:47 Dose: 81 mg Documented By: Admin: 10/13/24 09:06 Dose: 81 mg Documented By: Admin: 10/12/24 08:16 Dose: 81 mg Documented By: MPS Atorvastatin Calcium (Atorvastatin 40 Mg Tab) 40 mg PO DAILY [facility] Stop: 11/11/24 08:59 Last Admin: 10/14/24 08:47 Dose: 40 mg Documented By: Admin: 10/13/24 09:06 Dose: 40 mg Documented By: Admin: 10/12/24 08:16 Dose: 40 mg Documented By: KIARA Divalproex Sodium (Divalproex Delay Release 500 Mg Tab) 500 mg PO QAM [facility] Stop: 11/11/24 08:59 Last Admin: 10/14/24 08:47 Dose: 500 mg Documented By: Admin: 10/13/24 09:06 Dose: 500 mg Documented By: Admin: 10/12/24 08:16 Dose: 500 mg Documented By: KIARA Divalproex Sodium (Divalproex Extended Release 250 Mg Tabcr) 250 mg PO HS [facility] Stop: 11/10/24 22:45 Last Admin: 10/14/24 20:45 Dose: 250 mg Documented By: Admin: 10/13/24 21:20 Dose: 250 mg Documented By: Admin: 10/12/24 20:46 Dose: 250 mg Documented By: Admin: 10/11/24 23:33 Dose: 250 mg Documented By: DORON Docusate Sodium (Docusate Sodium 100 Mg Cap) 100 mg PO BID [facility] Stop: 11/11/24 08:59 Last Admin: 10/14/24 20:45 Dose: 100 mg Documented By: Admin: 10/14/24 08:46 Dose: 100 mg Documented By: Admin: 10/13/24 21:20 Dose: Not Given Documented By: Admin: 10/13/24 09:06 Dose: 100 mg Documented By: Admin: 10/12/24 20:46 Dose: 100 mg Documented By: Admin: 10/12/24 08:19 Dose: 100 mg Documented By: KIARA Levothyroxine Sodium (Levothyroxine Sodium 50 Mcg Tablet) 50 mcg PO DAILYBB [facility] Stop: 11/11/24 06:29 Last Admin: 10/15/24 05:51 Dose: 50 mcg Documented By: Admin: 10/14/24 06:25 Dose: Not Given Documented By: Admin: 10/13/24 06:08 Dose: 50 mcg Documented By: Admin: 10/12/24 06:04 Dose: 50 mcg Documented By: DORON Melatonin (Melatonin 3 Mg Tab) 3 mg PO HS PRN PRN Reason: Sleep Stop: 11/10/24 22:45 Last Admin: 10/14/24 20:45 Dose: 3 mg Documented By: Admin: 10/11/24 23:32 Dose: 3 mg Documented By: DORON Montelukast Sodium (Montelukast Sodium 10 Mg Tablet) 10 mg PO DAILY [facility] Stop: 11/11/24 08:59 Last Admin: 10/14/24 08:47 Dose: 10 mg Documented By: Admin: 10/13/24 09:06 Dose: 10 mg Documented By: Admin: 10/12/24 08:16 Dose: 10 mg Documented By: KIARA Nystatin (Nystatin Powder 15gm Btl) 1 appln EXT TID [facility] Stop: 11/12/24 09:39 Last Admin: 10/14/24 20:45 Dose: 1 appln Documented By: Admin: 10/14/24 15:15 Dose: 1 appln Documented By: Admin: 10/14/24 08:46 Dose: 1 appln Documented By: Admin: 10/13/24 21:20 Dose: 1 appln Documented By: Admin: 10/13/24 15:17 Dose: 1 appln Documented By: Admin: 10/13/24 10:34 Dose: 1 appln Documented By: IONA Pantoprazole S[facility] ([facility] 40 Mg Tab) [facility] [place] Stop: 11/11/24 08:59 Last Admin: 10/14/24 08:47 Dose: 40 mg Documented By: Admin: 10/13/24 09:06 Dose: 40 mg Documented By: Admin: 10/12/24 08:16 Dose: 40 mg Documented By: KIARA Potassium Chloride (Potassium Chloride Crtab 20 Meq Tabcr) [facility] [place] Stop: 11/11/24 08:59 Last Admin: 10/14/24 08:46 Dose: 20 meq Documented By: Admin: 10/13/24 09:06 Dose: 20 meq Documented By: Admin: 10/12/24 08:19 Dose: 20 meq Documented By: KIARA Discontinued Medications Gadobutrol (Gadobutrol 65ml Vial) 8 ml IV ONCE ONE Stop: 10/12/24 20:45 Last Admin: 10/12/24 20:45 Dose: 8 ml Documented By: KEVIN Sodium Chloride (Nss) 500 mls @ 999 mls/hr IV .Q31M ONE Stop: 10/11/24 19:41 Last Infusion: 10/11/24 21:34 Dose: Infused Documented By: Admin: 10/11/24 20:23 Dose: 999 mls/hr Documented By: PHIL Sodium Chloride (Nss) 1,000 mls @ 100 mls/hr IV .Q10H [facility] Stop: 10/12/24 08:45 Last Infusion: 10/12/24 09:56 Dose: Infused Documented By: Admin: 10/11/24 23:43 Dose: 100 mls/hr Documented By: DORON Description This is a 21 electrode EEG with a single channel dedicated to limited EKG. The electrodes were placed in accordance with the International 10-20 system. There is a posterior dominant rhythm of about 9 Hz which is symmetrically distributed and attenuates with eye opening. There is a normal anterior to posterior organization. Photic stimulation is unremarkable. There is a symmetric frontal beta rhythm. There is fairly continuous admixed moderate amplitude right frontotemporal theta slowing. There are no epileptiform abnormalities. Interpretation Mildly abnormal awake/drowsy EEG with evidence of right frontotemporal slowing. There are no epileptiform abnormalities. Clinical Correlation The observed right frontotemporal slowing is consistent with patient's history of right anterior temporal tumor resection as indicated in her history and observed on recent imaging. [facility] EEG Procedure Codes Indication for Procedure (1) SDH (subdural hematoma): (2) Seizure disorder: (3) Hx of brain cancer: Neurology Neurology: 29427 EEG include record awake & drowsy
--- NOTE | 2024-10-15 20:23 | Hospitalist Progress Note ---
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 Patient presented via EMS after another unwitnessed fall at home (lives with ). Head CT showed no changes in recent small, left-sided SDH. Admitted for ambulatory dysfunction and confusion - concern that she is unable to care for herself at home. #ambulatory dysfunction/fall/confusion -Head CT stable -Na level stable -- 130-135 while here -TSH wnl -ammonia wnl -recent B12 level not low -depakote level not in toxic range -whole blood B1 level in May 2024 wnl -MRI brain w/ and w/o contrast - NO recurrence of right-sided glioma; NO subacute CVA; STABLE, small SDH on left with no new areas of ICH -PT/OT consults requested and both advise 01/12 supervision in light of recurrent falls, poor insight, poor spatial awareness, etc -concern is that pt's is unable to care for her as he has medical problems himself -likely needs placement but due to lack of insurance dispo is very uncertain -EEG without focal seizure activity -orthostatic BPs negative today -denies any back or LE symptoms thus lumbar spine disease contributing to falls is unlikely #recent left-sided SDH - -stable on head CT this admission as well as MRI brain performed last pm -2nd to recent fall with head injury -[place]operative [place] [facility] [place]will need repeat head CT in ~1 week to ensure stability #hyponatremia - acute on chronic -urine osm 387 -urine Na 94 -serum osm 276 -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 -cortisol & TSH Wnl -start NaCl 1gm daily to keep Na level stable then repeat BMP every 2-3 days for stability #history of seizures/CVA/brain tumor resection (2000 - temporal glioma on right) -continue Depakote; valproic acid level acceptable at 48 -continue Depakote at 500 Mg QAM and 250 Mg QPM #hypothyroidism -TSH WNL -continue levothyroxine. #GERD - -continue PPI #pancytopenia - -seen by heme/onc on 08/31/24 -thought 2nd to chronic depakote usage -B12/TSH/folate all wnl -check copper level to be complete - sent/pending #DVT proph - -in light of recent SDH defer on chemical means #h/o pre-DM - -repeat a1c in am dispo planning - appreciate social work assistance patient needs insurance - Medicare application to be performed placement at SNF??? other?? updated pt's son by phone 10/14/24 reviewed all test results discussed plan of care discussed dispo issues Admission and Anticipated Discharge Date Admission Date: October 11, 2024 Subjective no events overnight she c/o right AC IV that was placed at time of admission she is oriented x 3 today she denies ALL complaints including headache, numbness of arms/legs, weakness of arms/legs, back pain, dyspnea, chest pain, dizziness last stool - 10/13 Physical Exam Physical Exam: gen - NAD, lying in bed comfortably, watching TV neck - no JVD mouth - MMM heart - RRR, s1 s2, no murmur lungs - CTA b/l abd - soft NT ND BS+ ext - no edema, pulses 2+ b/l neuro - no facial droop; strength 5/5 x 4 exts psych - a/o x 3, but poor insight Results & Data Results & Data Vital Signs (Past 12 Hours) Vital Signs Temp Pulse Resp BP Pulse Ox O2 Del Method 10/15/24 18:57 36.8 C 58 L 16 108/69 97 Room Air 10/15/24 15:58 36.7 C 60 12 92/60 L 97 Room Air Laboratory Results Laboratory Results - last 48 hr 10/14/24 09:38 WBC 5.90 RBC 3.37 L Hgb 10.5 L Hct 31.3 L MCV 92.9 MCH 31.2 MCHC 33.5 RDW Std Deviation 45.7 RDW Coeff of Juliet 13.8 Plt Count 95 L MPV 9.1 L Immature Gran % (Auto) 0.3 Neut % (Auto) 66.5 Lymph % (Auto) 18.8 [place] % (Auto) 14.1 Eos % (Auto) 0.0 Baso % (Auto) 0.3 Neut # (Auto) 3.92 Lymph # (Auto) 1.11 L [place] # (Auto) 0.83 H Eos # (Auto) 0.00 Baso # (Auto) 0.02 Immature Gran # (Auto) 0.02 Sodium 133 L Potassium 4.0 Chloride 98 Carbon Dioxide 30 Anion Gap 5 BUN 9 Creatinine 0.68 Est Cr Clr Drug Dosing 75.5 eGFR 95.99 BUN/Creatinine Ratio 13.2 Glucose 155 H Calcium 9.8 Total Creatine Kinase 15 L Diagnostic Findings EEG --- Description This is a 21 electrode EEG with a single channel dedicated to limited EKG. The electrodes were placed in accordance with the International 10-20 system. There is a posterior dominant rhythm of about 9 Hz which is symmetrically distributed and attenuates with eye opening. There is a normal anterior to posterior organization. Photic stimulation is unremarkable. There is a symmetric frontal beta rhythm. There is fairly continuous admixed moderate amplitude right frontotemporal theta slowing. There are no epileptiform abnormalities. Interpretation Mildly abnormal awake/drowsy EEG with evidence of right frontotemporal slowing. There are no epileptiform abnormalities. Clinical Correlation The observed right frontotemporal slowing is consistent with patient's history of right anterior temporal tumor resection as indicated in her history and observed on recent imaging. PG Care Time/CCT Total # of Minutes Spent Total Time Spent with Patient: Total time spent is greater than 50% in coordination of care (as documented) at patient's floor/unit and/or counseling patient: Coding Level of Care Code 68709 SUB INP/OBS CARE 2/35MIN Diagnoses Ambulatory dysfunction R26.2 Fall W19.XXXA SDH (subdural hematoma) S06.5XAA Hyponatremia E87.1
[2024-10-16 07:31] LABS: Estimated Average Glucose 105 mg/dl; Hemoglobin A1C 5.3 % (4.5-5.6)
[2024-10-16] MEDS: POLYETHYLENE (MIRALAX) 17 GM PACK PO SCH (10:02)
[2024-10-16] MEDS: SODIUM CHLORIDE 1 GM TABLET PO SCH (10:02)
--- NOTE | 2024-10-16 19:15 | Hospitalist Progress Note ---
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 Patient presented via EMS after another unwitnessed fall at home (lives with ). Head CT showed no changes in recent small, left-sided SDH. Admitted for ambulatory dysfunction and confusion - concern that she is unable to care for herself at home. #ambulatory dysfunction/fall/confusion -Head CT stable -Na level stable -- 130-135 while here -TSH wnl -ammonia wnl -recent B12 level not low -depakote level not in toxic range -whole blood B1 level in May 2024 wnl -MRI brain w/ and w/o contrast - NO recurrence of right-sided glioma; NO subacute CVA; STABLE, small SDH on left with no new areas of ICH -PT/OT consults requested and both advise 01/12 supervision in light of recurrent falls, poor insight, poor spatial awareness, etc -concern is that pt's is unable to care for her as he has medical problems himself -likely needs placement but due to lack of insurance dispo is very uncertain -EEG without focal seizure activity -orthostatic BPs negative x 2 checks -denies any back or LE symptoms thus lumbar spine disease contributing to falls is unlikely #recent left-sided SDH - -stable on head CT this admission as well as MRI brain performed last pm -2nd to recent fall with head injury -nonoperative management while at [facility] in late September -will need repeat head CT in ~1 week to ensure stability #hyponatremia - acute on chronic -urine osm 387 -urine Na 94 -serum osm 276 -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 -cortisol & TSH Wnl -start NaCl 1gm daily to keep Na level stable then repeat BMP am tomorrow #history of seizures/CVA/brain tumor resection (2000 - temporal glioma on right) -continue Depakote; valproic acid level acceptable at 48 -continue Depakote at 500 Mg QAM and 250 Mg QPM #hypothyroidism -TSH WNL -continue levothyroxine. #GERD - -continue PPI #pancytopenia - -seen by heme/onc on 08/31/24 -thought 2nd to chronic depakote usage -B12/TSH/folate all wnl -check copper level to be complete - sent/pending #DVT proph - -in light of recent SDH defer on chemical means #h/o pre-DM - -a1c 5.3% thus pre-DM has resolved dispo planning - appreciate social work assistance patient needs insurance - Medicare application to be performed placement at SNF??? other?? updated pt's son by phone 10/14/24 reviewed all test results discussed plan of care discussed dispo issues Admission and Anticipated Discharge Date Admission Date: October 11, 2024 Subjective no events overnight wants IV in the right arm removed - causing discomfort eating well +stool today no seizures Review of Systems Review of Systems: CV - no chest pain pulm - no dyspnea GI - no abd pain Physical Exam Physical Exam: gen - NAD, lying in bed comfortably, looks same as previous visit neck - no JVD mouth - MMM heart - RRR, s1 s2, no murmur lungs - CTA b/l abd - soft NT ND BS+ ext - no edema, pulses 2+ b/l Results & Data Results & Data Vital Signs (Past 12 Hours) Vital Signs Temp Pulse Pulse Resp BP BP Pulse Ox 10/16/24 15:33 36.9 C 65 18 100/68 97 10/16/24 08:14 36.7 C 68 18 136/74 97 O2 Del Method 10/16/24 15:33 Room Air 10/16/24 08:14 Room Air Laboratory Results Laboratory Results - last 24 hr 10/16/24 06:08 Estimat Average Glucose 105 Hemoglobin A1c 5.3 PG Care Time/CCT Total # of Minutes Spent Total Time Spent with Patient: Total time spent is greater than 50% in coordination of care (as documented) at patient's floor/unit and/or counseling patient: Coding Level of Care Code 45576 SUB INP/OBS CARE 06/04MIN Diagnoses Ambulatory dysfunction R26.2 Fall W19.XXXA SDH (subdural hematoma) S06.5XAA Hyponatremia E87.1
[2024-10-17 07:31] LABS: Basophils # (auto) 0.03 K/uL (0.00-0.20); Basophils % (auto) 0.5 %; Hematocrit (blood only) 30.1 % (37.0-47.0); Hemoglobin 10.6 g/dl (12.0-16.0); Immature Granulocytes # (auto) 0.02 K/uL (0.01-0.20); Immature Granulocytes % (auto) 0.3 %; Lymphocytes # (auto) 1.71 K/uL (1.20-3.40); Lymphocytes % (auto) 27.9 %; Mean Corpuscular Hemoglobin 32.3 pg (25.0-34.0); Mean Corpuscular Hgb Conc 35.2 g/dL (32.0-36.0); Mean Corpuscular Volume 91.8 fL (80.0-100.0); Mean Platelet Volume 9.2 fL (9.4-12.4); Monocytes # (auto) 0.66 K/uL (0.11-0.59); Monocytes % (auto) 10.7 %; Neutrophils # (auto) 3.72 K/uL (1.40-6.50); Neutrophils % (auto) 60.6 %; Platelet Count 143 K/uL (130-400); RDW Coefficient of Variation 14.1 % (11.5-14.5); RDW Standard Deviation 47.2 fL (36.4-46.3); Red Blood Count 3.28 M/uL (4.20-5.40); White Blood Count 6.14 K/ul (4.8-10.8)
[2024-10-17 07:55] LABS: BUN Creatinine Ratio 13.6 (10-20); Calcium 9.3 mg/dl (8.6-10.3); Creatinine Clr Calc Pharmacy 77.8 ml/min; Potassium 4.3 mmol/L (3.5-5.1)
[2024-10-17] MEDS: SODIUM CHLORIDE 1 GM TABLET PO SCH (20:35)
--- NOTE | 2024-10-17 20:41 | Hospitalist Progress Note ---
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 Patient presented via EMS after another unwitnessed fall at home (lives with ). Head CT showed no changes in recent small, left-sided SDH. Admitted for ambulatory dysfunction and confusion - concern that she is unable to care for herself at home. #ambulatory dysfunction/fall - -Head CT with SDH but stable -Na level stable -- 130-135 while here -TSH wnl -ammonia wnl -recent B12 level not low -depakote level not in toxic range -whole blood B1 level in May 2024 wnl -copper level returned wnl -MRI brain w/ and w/o contrast - NO recurrence of right-sided glioma; NO subacute CVA; STABLE, small SDH on left with no new areas of ICH -PT/OT consults requested and both advise 01/12 supervision in light of recurrent falls, poor insight, poor spatial awareness, etc -concern is that pt's is unable to care for her as he has medical problems himself -likely needs placement but due to lack of insurance dispo is very uncertain -EEG without focal seizure activity -orthostatic BPs negative x 2 checks -denies any back or LE symptoms; denies neck pain; thus cervical and lumbar spine disease contributing to falls is unlikely #recent left-sided SDH - -stable on head CT this admission as well as MRI brain performed last pm -2nd to recent fall with head injury -nonoperative management while at [facility] [place] in late September -will need repeat head CT in ~1 week to ensure stability #hyponatremia - acute on chronic -urine osm 387 -urine Na 94 -serum osm 276 -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 -cortisol & TSH Wnl -started NaCl 1gm daily -Na level today 130 -increase NaCl to 1gm BID -repeat Na level in am tomorrow, 10/18 #history of seizures/CVA/brain tumor resection (2000 - temporal glioma on right) -continue Depakote; valproic acid level acceptable at 48 -continue Depakote at 500 Mg QAM and 250 Mg QPM -EEG this admission NEGATIVE for seizure focus #hypothyroidism -TSH WNL -continue levothyroxine. #GERD - -continue PPI #pancytopenia - -seen by heme/onc on 08/31/24 -thought 2nd to chronic depakote usage -B12/TSH/folate all wnl -checked copper level to be complete - returned normal -CBC today, 10/17/24, stable cell lines #DVT proph - -in light of recent SDH defer on chemical means at this time #h/o pre-DM - -a1c 5.3% thus pre-DM has resolved dispo planning - appreciate social work assistance patient needs insurance - Medicare application to be performed pt's son contacting [facility] to see if his mom/dad are eligible for additional services & assistance (see social work note from today) updated pt's son by phone 10/14/24 and again today, 10/17 reviewed all test results including EEG dispo discussed - uncertain at this time Admission and Anticipated Discharge Date Admission Date: October 11, 2024 Subjective no events overnight eating well +stool yesterday no issues per staff Review of Systems Review of Systems: neuro - no headache; no motor weakness of any limb - no dysuria cv - no chest pain pulm - no dyspnea or RYDER GI - no abd pain or N/V Physical Exam Physical Exam: gen - NAD, lying in bed comfortably eyes - PERRL neck - no JVD mouth - MMM heart - RRR, s1 s2, no murmur lungs - CTA b/l abd - soft NT ND BS+ ext - no edema, pulses 2+ b/l neuro - strength b/l legs 5/5 Results & Data Results & Data Vital Signs (Past 12 Hours) Vital Signs Temp Pulse Resp BP Pulse Ox O2 Del Method 10/17/24 20:03 37.2 C 66 16 111/67 96 Room Air Laboratory Results Laboratory Results - last 24 hr 10/14/24 10/17/24 09:38 06:32 WBC 6.14 RBC 3.28 L Hgb 10.6 L Hct 30.1 L MCV 91.8 MCH 32.3 MCHC 35.2 RDW Std Deviation 47.2 H RDW Coeff of Juliet 14.1 Plt Count 143 MPV 9.2 L Immature Gran % (Auto) 0.3 Neut % (Auto) 60.6 Lymph % (Auto) 27.9 [place] % (Auto) 10.7 Eos % (Auto) 0.0 Baso % (Auto) 0.5 Neut # (Auto) 3.72 Lymph # (Auto) 1.71 [place] # (Auto) 0.66 H Eos # (Auto) 0.00 Baso # (Auto) 0.03 Immature Gran # (Auto) 0.02 Sodium 130 L Potassium 4.3 Chloride 95 L Carbon Dioxide 29 Anion Gap 6 BUN 9 Creatinine 0.66 Est Cr Clr Drug Dosing 77.8 eGFR 96.69 BUN/Creatinine Ratio 13.6 Glucose 126 H Calcium 9.3 Serum Copper 79 PG Care Time/CCT Total # of Minutes Spent Total Time Spent with Patient: Total time spent is greater than 50% in coordination of care (as documented) at patient's floor/unit and/or counseling patient: Coding Level of Care Code 42600 SUB INP/OBS CARE 2/35MIN Diagnoses Ambulatory dysfunction R26.2 Fall W19.XXXA SDH (subdural hematoma) S06.5XAA Hyponatremia E87.1
[2024-10-17] MEDS: COUGH DROP (SUGAR FREE) LOZ 24 LOZ/1 BOX BUCCAL PRN (22:56)
--- NOTE | 2024-10-18 11:10 | CT Scan Report ---
CT head/brain wo con CLINICAL HISTORY: 64 years-old Female with ensure stable findings. Acutely altered mental status TECHNIQUE: Multiple axial CT images of the head were obtained without contrast. A dose lowering tech nique was utilized adhering to the principles of ALARA. CT DOSE: 547.75 mGy.cm COMPARISON: Head CT 10/11/2024, 10/04/2024, brain MRI 10/12/2024 Small subacute left-sided subdural hematoma redemonstrated which is unchanged measuring approximately 7 mm. There is mild mass effect with sulcal effacement, slight compression of the left lateral ventr icle and minimal rightward midline shift of 4 mm., Unchanged Encephalomalacia within the right tempor al lobe redemonstrated. There are stable postoperative findings. A hyperdense focus within the gary i s also unchanged. There are no findings to suggest acute dural sinus thrombosis or acute territorial infarct. Heterogeneous appearance of the skull base and temporal and frontal bones is unchanged. Ther e are no calvarial fractures. Right mastoid effusion. IMPRESSION: 1. Unchanged subcentimeter subacute left-sided subdural hematoma with 4 mm rightward midline shift. N o acute intracranial hemorrhage. 2. Otherwise, unchanged appearance of brain. ACT 112: Negative or not required by law. The above report was generated using voice recognition software. It may contain grammatical, syntax o r spelling errors. Electronically signed by: Radu Celestin M.D. 10/18/2024 11:09 AM
--- NOTE | 2024-10-18 12:44 | Hospitalist Progress Note ---
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 #ambulatory dysfunction/fall - -Head CT with SDH but stable, and no other new changes after fall; repeat ordered for today -Na level stable -- 130-135 while here -TSH wnl -ammonia wnl -recent B12 level not low -depakote level not in toxic range -whole blood B1 level in May 2024 wnl -copper level returned wnl -PT/OT consults requested and both advise 24/ supervision in light of recurrent falls, poor insight, poor spatial awareness, etc -concern is that pt's is unable to care for her as he has medical problems himself -likely needs placement but due to lack of insurance dispo is very uncertain; CM following -EEG without focal seizure activity -orthostatic BPs negative x 2 checks -denies any back or LE symptoms; denies neck pain; thus cervical and lumbar spine disease contributing to falls is unlikely #recent left-sided SDH - -stable on head CT this admission as well as MRI brain performed last pm; repeat ordered today -2nd to recent fall with head injury -nonoperative management while at [facility] [place] in late September #hyponatremia - acute on chronic -urine osm 387 -urine Na 94 -serum osm 276 -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 -cortisol & TSH Wnl -started NaCl 1gm daily -Na level today 128 -increase NaCl to 1gm BID -repeat BMP in am #history of seizures/CVA/brain tumor resection (2000 - temporal glioma on right) -continue Depakote; valproic acid level acceptable at 48 -continue Depakote at 500 Mg QAM and 250 Mg QPM -EEG this admission NEGATIVE for seizure focus #hypothyroidism -TSH WNL -continue levothyroxine. #GERD - -continue PPI #pancytopenia - -seen by heme/onc on 08/31/24 -thought 2nd to chronic depakote usage -B12/TSH/folate all wnl -checked copper level to be complete - returned normal -stable in recent labs; continue to monitor am labs #DVT proph - -in light of recent SDH defer on chemical means at this time #h/o pre-DM - -a1c 5.3% thus pre-DM has resolved dispo planning - appreciate social work assistance patient needs insurance - Medicare application to be performed pt's son contacting the [facility] to see if his mom/dad are eligible for additional services & assistance Admission and Anticipated Discharge Date Admission Date: October 11, 2024 Supervising Physician Co-Signing Physician Notes ATTESTATION I also saw the patient and confirmed cisneros portions of the history and exam. I agree with the impression and plan in the resident documentation, and as summarized below. No new complaints. Scheduled for repeat CT head today. EXAM VS stable Alert and oriented. Respirations non labored DATA Labs Sodium 128 IMPRESSION & PLAN Ambulatory dysfunction/fall Recent left sided SDH Repeat CT today Hyponatremia Continue supplementation BMP in AM Additional per resident documentation Subjective Sitting at bedside chair. No new concerns. No overnight events. Physical Exam Physical Exam: gen - NAD, lying in bed comfortably eyes - PERRL neck - no JVD mouth - MMM heart - RRR, s1 s2, no murmur lungs - CTA b/l abd - soft NT ND BS+ Results & Data Results & Data Vital Signs (Past 12 Hours) Vital Signs Temp Pulse Resp BP Pulse Ox O2 Del Method 10/18/24 08:08 36.6 C 86 18 137/80 96 Room Air Resident Activity Tracking Resident Involvement: Resident Care Provided Care Provided: Adult Hospital Medicine
[2024-10-19 05:55] LABS: Hematocrit (blood only) 29.3 % (37.0-47.0); Hemoglobin 10.4 g/dl (12.0-16.0); Mean Corpuscular Hemoglobin 32.4 pg (25.0-34.0); Mean Corpuscular Hgb Conc 35.5 g/dL (32.0-36.0); Mean Corpuscular Volume 91.3 fL (80.0-100.0); Mean Platelet Volume 9.1 fL (9.4-12.4); Platelet Count 160 K/uL (130-400); RDW Standard Deviation 46.3 fL (36.4-46.3); Red Blood Count 3.21 M/uL (4.20-5.40); White Blood Count 6.77 K/ul (4.8-10.8)
[2024-10-19 06:21] LABS: BUN Creatinine Ratio 18.5 (10-20); Calcium 9.4 mg/dl (8.6-10.3); Creatinine Clr Calc Pharmacy 78.9 ml/min; Potassium 4.1 mmol/L (3.5-5.1)
--- NOTE | 2024-10-19 10:52 | Hospitalist Progress Note ---
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 #ambulatory dysfunction/fall - -Head CT with SDH but stable, and no other new changes after fall; repeat ordered for today -Na level stable -- 130-135 while here -TSH wnl -ammonia wnl -recent B12 level not low -depakote level not in toxic range -whole blood B1 level in May 2024 wnl -copper level returned wnl -PT/OT consults requested and both advise / supervision in light of recurrent falls, poor insight, poor spatial awareness, etc -concern is that pt's is unable to care for her as he has medical problems himself -likely needs placement but due to lack of insurance dispo is very uncertain; CM following -EEG without focal seizure activity -orthostatic BPs negative x 2 checks -denies any back or LE symptoms; denies neck pain; thus cervical and lumbar spine disease contributing to falls is unlikely #recent left-sided SDH - -stable on head CT this admission as well as MRI brain; repeat head CT yesterday and again showed stable SDH -2nd to recent fall with head injury -[place]operative [place] [facility] [place] #hyponatremia - acute on chronic -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 -cortisol & TSH Wnl -started NaCl 1gm and increased to bid -Na level improved today to 130; continue current NaCl dose -repeat BMP in am #history of seizures/CVA/brain tumor resection (2000 - temporal glioma on right) -continue Depakote; valproic acid level acceptable at 48 -continue Depakote at 500 Mg QAM and 250 Mg QPM -EEG this admission NEGATIVE for seizure focus #hypothyroidism -TSH WNL -continue levothyroxine. #GERD - -continue PPI #pancytopenia - -seen by heme/onc on 08/31/24 -thought 2nd to chronic depakote usage -B12/TSH/folate all wnl -checked copper level to be complete - returned normal -stable in recent labs; continue to monitor am labs #DVT proph - -in light of recent SDH defer on chemical means at this time #h/o pre-DM - -a1c 5.3% thus pre-DM has resolved dispo planning - appreciate social work assistance patient needs insurance - Medicare application to be performed pt's son contacting the [facility] to see if his mom/dad are eligible for additional services & assistance Admission and Anticipated Discharge Date Admission Date: October 11, 2024 Supervising Physician Co-Signing Physician Notes ATTESTATION I also saw the patient and confirmed cisneros portions of the history and exam. I agree with the impression and plan in the resident documentation, and as summarized below. No new complaints. Working with PT this morning. EXAM VS stable Alert and oriented. Respirations non labored DATA Labs Sodium 130 IMPRESSION & PLAN Ambulatory dysfunction/fall Recent left sided SDH Follow up CT 10/18 without change Medicare application pending Hyponatremia Improved Continue supplementation BMP in AM Additional per resident documentation Subjective Sitting at bedside chair. No new concerns. No overnight events. Physical Exam Physical Exam: gen - NAD, sitting on bedside chair eyes - PERRL mouth - MMM heart - RRR, s1 s2, no murmur lungs - CTA b/l abd - soft NT ND BS+ Results & Data Results & Data Vital Signs (Past 12 Hours) Vital Signs Temp Pulse Resp BP Pulse Ox O2 Del Method 10/19/24 07:41 36.5 C 65 18 90/58 L 96 Room Air Resident Activity Tracking Resident Involvement: Resident Care Provided Care Provided: Adult Hospital Medicine
[2024-10-20 07:46] LABS: BUN Creatinine Ratio 18.3 (10-20); Calcium 9.5 mg/dl (8.6-10.3); Creatinine Clr Calc Pharmacy 85.5 ml/min; Potassium 4.1 mmol/L (3.5-5.1)
--- NOTE | 2024-10-20 09:11 | Hospitalist Progress Note ---
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 #ambulatory dysfunction/fall - -Head CT with SDH but stable, and no other new changes after fall; repeat ordered for today -Na level stable -- 130-135 while here -TSH wnl -ammonia wnl -recent B12 level not low -depakote level not in toxic range -whole blood B1 level in May 2024 wnl -copper level returned wnl -PT/OT consults requested and both advise / supervision in light of recurrent falls, poor insight, poor spatial awareness, etc -concern is that pt's is unable to care for her as he has medical problems himself -likely needs placement but due to lack of insurance dispo is very uncertain; CM following -EEG without focal seizure activity -orthostatic BPs negative x 2 checks -denies any back or LE symptoms; denies neck pain; thus cervical and lumbar spine disease contributing to falls is unlikely #recent left-sided SDH - -stable on head CT this admission as well as MRI brain; repeat head CT yesterday and again showed stable SDH -2nd to recent fall with head injury -nonoperative management while at [place] in late September #hyponatremia - acute on chronic -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 -cortisol & TSH Wnl -started NaCl 1gm and increased to bid -Na level improved today to 134; continue current NaCl dose -repeat BMP in am #history of seizures/CVA/brain tumor resection (2000 - temporal glioma on right) -continue Depakote; valproic acid level acceptable at 48 -continue Depakote at 500 Mg QAM and 250 Mg QPM -EEG this admission NEGATIVE for seizure focus #hypothyroidism -TSH WNL -continue levothyroxine. #GERD - -continue PPI #pancytopenia - -seen by heme/onc on 08/31/24 -thought 2nd to chronic depakote usage -B12/TSH/folate all wnl -checked copper level to be complete - returned normal -stable in recent labs; continue to monitor am labs #DVT proph - -in light of recent SDH defer on chemical means at this time #h/o pre-DM - -a1c 5.3% thus pre-DM has resolved dispo planning - appreciate social work assistance patient needs insurance - Medicare application to be performed pt's son contacting the [facility] to see if his mom/dad are eligible for additional services & assistance Admission and Anticipated Discharge Date Admission Date: October 11, 2024 Supervising Physician Co-Signing Physician Notes ATTESTATION I also saw the patient and confirmed cisneros portions of the history and exam. I agree with the impression and plan in the resident documentation, and as summarized below. Pleasant. Talkative this morning. No new complaints. EXAM VS stable Alert and oriented. Respirations non labored DATA Labs Sodium 134, improved IMPRESSION & PLAN Ambulatory dysfunction/fall Recent left sided SDH Follow up CT 10/18 without change Medicare application pending; placement/bed search to follow Hyponatremia Improved Continue supplementation BMP in AM Additional per resident documentation Subjective Sitting at bedside chair. No new concerns. No overnight events. Physical Exam Physical Exam: gen - NAD, sitting on bedside chair eyes - PERRL mouth - MMM heart - RRR, s1 s2, no murmur lungs - CTA b/l abd - soft NT ND BS+ Results & Data Results & Data Vital Signs (Past 12 Hours) Vital Signs Temp Pulse Resp BP Pulse Ox O2 Del Method 10/20/24 08:52 36.7 C 88 18 123/77 98 Room Air Resident Activity Tracking Resident Involvement: Resident Care Provided Care Provided: Adult Hospital Medicine
[2024-10-21 07:02] LABS: Calcium 9.5 mg/dl (8.6-10.3); Potassium 4.2 mmol/L (3.5-5.1)
--- NOTE | 2024-10-21 08:12 | Hospitalist Progress Note ---
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 #Ambulatory Dysfunction #Frequent Falls #Extensive Neurological History - seizures, brain tumor resection, subdural hematoma, prior CVA Patient with repeated falls. Likely multifactorial with questionable nutritional status, deconditioning, prior brain tumor resection of a right temporal lobe glioma, recent subdural hematoma 10/04/2024, prior CVA, and seizure disorder. Workup relatively unrevealing - stable CT Head, normal copper, B12, TSH, and Thiamine levels (05/2024), therapeutic depakote level, and stable sodium. EEG without seizure activity. Orthostatics negative x 2. PT/OT recommend 01/12 sup ervision - poor insight, poor spatial awareness, frequent falls. continue depakote 500 QAM and 250 HS EEG negative for seizure focus depakote level therapeutic #Dispo Planning unable to care for patient at home. Patient did not enroll in Medicare during open enrollment thus she does not have insurance and cannot be placed. Medicare application has been denied at this point. Pt's son [facility] to see if his mom/dad are eligible for additional services & assistance. Next steps on dispo planning to come. #Stable left-sided SDH Stable head CT x 2 - 1 week apart. No changes indicated. Chemoppx contraindicated with recent SDH. stable on head CT this admission as well as MRI brain; repeat head CT yesterday and again showed stable SDH -2nd to recent fall with head injury -nonoperative management while at [facility] [place] in late September #Hyponatremia - acute on chronic Acute on chronic - suspect SIADH. Cortisol and TSH normal. Improved with salt tabs - 1 gm BID. Hyponatremia stable at 134 - continue to monitor with labs Q2D #Hypothyroidism TSH WNL. Continue levothyroxine. #GERD - continue PPI #Pancytopenia Seen by heme/onc on 08/31/24 - thought 2nd to chronic depakote usage. B12/TSH/folate/copper levels WNL. Continue to monitor with labs Q4D Code status: full DVT ppx: contraindicated with recent SDH FENGI: HH Dispo: complex dispo needs, appreciate CM input Admission and Anticipated Discharge Date Admission Date: October 11, 2024 Supervising Physician Co-Signing Physician Notes I personally examined the patient and verified cisneros points of history and exam, discussed case, and agree with decision making and plan documented by Dr. Spence. Subjective Seen at bedside this AM. No concerns. Took miralax this AM. No BM yet today. Review of Systems Review of Systems: See HPI Physical Exam Physical Exam: Gen: well appearing patient in NAD HEENT: AT NC MMM Resp: CTAB no wheezing no increased work of breathing CV: RRR no m/r/g clinically well perfused Abd: non-distended MSK: no obvious deformities Skin: no rashes or bruising Neuro: alert and oriented Psych: appropriate mood and affect Results & Data Results & Data Vital Signs (Past 12 Hours) Vital Signs Temp Pulse Resp BP Pulse Ox O2 Del Method 10/21/24 07:22 36.7 C 64 18 118/71 97 Room Air 10/20/24 20:15 Room Air Resident Activity Tracking Resident Involvement: Resident Care Provided Care Provided: Adult Hospital Medicine
--- NOTE | 2024-10-22 07:24 | Hospitalist Progress Note ---
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 #Ambulatory Dysfunction #Frequent Falls #Extensive Neurological History - seizures, brain tumor resection, subdural hematoma, prior CVA Patient with repeated falls. Likely multifactorial with questionable nutritional status, deconditioning, prior brain tumor resection of a right temporal lobe glioma, recent subdural hematoma 10/04/2024, prior CVA, and seizure disorder. Workup relatively unrevealing - stable CT Head, normal copper, B12, TSH, and Thiamine levels (05/2024), therapeutic depakote level, and stable sodium. EEG without seizure activity. Orthostatics negative x 2. PT/OT recommend 01/12 supervision - poor insight, poor spatial awareness, frequent falls. continue depakote 500 QAM and 250 HS EEG negative for seizure focus depakote level therapeutic #Dispo Planning unable to care for patient at home. Patient did not enroll in Medicare during open enrollment thus she does not have insurance and cannot be placed. Medicare application has been denied at this point. Pt's son contacting the [facility] to see if his mom/dad are eligible for additional services & assistance. Next steps on dispo planning to come. #Stable left-sided SDH Stable head CT x 2 - 1 week apart. No changes indicated. Chemoppx contraindicated with recent SDH. stable on head CT this admission as well as MRI brain; repeat head CT yesterday and again showed stable SDH -2nd to recent fall with head injury -nonoperative management while at [facility] [place] #Hyponatremia - acute on chronic Acute on chronic - suspect SIADH. Cortisol and TSH normal. Improved with salt tabs - 1 gm BID. Hyponatremia stable at 134 - continue to monitor with labs Q2D #Hypothyroidism TSH WNL. Continue levothyroxine. #GERD - continue PPI #Pancytopenia Seen by heme/onc on 08/31/24 - thought 2nd to chronic depakote usage. B12/TSH/folate/copper levels WNL. Continue to monitor with labs Q4D #Erythematous Rash Will initiate treatment with Lotrisone, monitor daily for response to cream Code status: full DVT ppx: contraindicated with recent SDH FENGI: HH Dispo: complex dispo needs, appreciate CM input Admission and Anticipated Discharge Date Admission Date: October 11, 2024 Supervising Physician Co-Signing Physician Notes I personally examined the patient and verified cisneros points of history and exam, discussed case, and agree with decision making and plan documented by Dr. Laguna. Unfortunately, patient is unable to enroll in Medicare until May 2025. [facility] been updated [facility]. Due to ambulatory dysfunction, cognitive decline, and repeated falls, patient not safe to be discharged home at this time. Subjective Patient was seen and examined at bedside. No acute events reported overnight. Patient had just awoken at time of encounter, was awaiting breakfast. Denies any acute concerns or questions at this time. Review of Systems Review of Systems: As per above Physical Exam Constitutional: WD/WN, vitals as above Eyes: no conjunctival abnormality ENMT: Ears: no external ear abnormality Nose: no external nose abnormality Moist mucous membranes Respiratory: normal respiratory effort, lungs clear to auscultation Cardiovascular: Rate/Rhythm: regular rate and regular rhythm Gastrointestinal (Abdomen): Inspection/Auscultation: abdomen normal to inspection; abdomen not distended Percussion/Palpation: abdomen soft Skin: Flat, erythematous rash across buttocks and torso. No visible drainage or bleeding. Psychiatric: A+Ox3, euthymic affect Results & Data Results & Data Vital Signs (Past 12 Hours) Vital Signs Temp Pulse Resp BP Pulse Ox O2 Del Method 10/21/24 22:28 36.9 C 75 16 105/70 97 Room Air 10/21/24 20:45 Room Air Resident Activity Tracking Resident Involvement: Resident Care Provided Care Provided: Adult Hospital Medicine
[2024-10-22] MEDS: CLOTRIMAZOLE/BETAMETHASONE CR 15 GM TUBE EXT SCH (19:58)
[2024-10-23] MEDS: ACETAMINOPHEN 325 MG TAB PO PRN (00:40)
[2024-10-23 07:10] LABS: Basophils # (auto) 0.03 K/uL (0.00-0.20); Basophils % (auto) 0.7 %; Hematocrit (blood only) 27.6 % (37.0-47.0); Hemoglobin 9.9 g/dl (12.0-16.0); Immature Granulocytes # (auto) 0.02 K/uL (0.01-0.20); Immature Granulocytes % (auto) 0.4 %; Lymphocytes # (auto) 1.87 K/uL (1.20-3.40); Lymphocytes % (auto) 40.9 %; Mean Corpuscular Hemoglobin 32.5 pg (25.0-34.0); Mean Corpuscular Hgb Conc 35.9 g/dL (32.0-36.0); Mean Corpuscular Volume 90.5 fL (80.0-100.0); Mean Platelet Volume 8.9 fL (9.4-12.4); Monocytes # (auto) 0.48 K/uL (0.11-0.59); Monocytes % (auto) 10.5 %; Neutrophils # (auto) 2.17 K/uL (1.40-6.50); Neutrophils % (auto) 47.5 %; Platelet Count 157 K/uL (130-400); RDW Coefficient of Variation 13.9 % (11.5-14.5); RDW Standard Deviation 46.4 fL (36.4-46.3); Red Blood Count 3.05 M/uL (4.20-5.40); White Blood Count 4.57 K/ul (4.8-10.8)
--- NOTE | 2024-10-23 07:35 | Hospitalist Progress Note ---
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 #Ambulatory Dysfunction #Frequent Falls #Extensive Neurological History - seizures, brain tumor resection, subdural hematoma, prior CVA Patient with repeated falls. Likely multifactorial with questionable nutritional status, deconditioning, prior brain tumor resection of a right temporal lobe glioma, recent subdural hematoma 10/04/2024, prior CVA, and seizure disorder. Workup relatively unrevealing - stable CT Head, normal copper, B12, TSH, and Thiamine levels (05/2024), therapeutic depakote level, and stable sodium. EEG without seizure activity. Orthostatics negative x 2. PT/OT recommend / supervision - poor insight, poor spatial awareness, frequent falls. continue depakote 500 QAM and 250 HS EEG negative for seizure focus depakote level therapeutic #Dispo Planning unable to care for patient at home. Patient did not enroll in Medicare during open enrollment thus she does not have insurance and cannot be placed. Medicare application has been denied at this point. Pt's son contacting the [facility] to see if his mom/dad are eligible for additional services & assistance. Next steps on dispo planning to come. #Stable left-sided SDH Stable head CT x 2 - 1 week apart. No changes indicated. Chemoppx contraindicated with recent SDH. stable on head CT this admission as well as MRI brain; repeat head CT on 10/18 and again showed stable SDH -2nd to recent fall with head injury -nonoperative management [place] [facility] -Consider repeating CT head at interval until SDH shows resolution #Hyponatremia - acute on chronic Acute on chronic - suspect SIADH. Cortisol and TSH normal. Improved with salt tabs - 1 gm BID. Sodium is slightly lower today (128), will recheck Na level on 10/24 #Hypothyroidism TSH WNL. Continue levothyroxine. #GERD - continue PPI #Pancytopenia Seen by heme/onc on 08/31/24 - thought 2nd to chronic depakote usage. B12/TSH/folate/copper levels WNL. Continue to monitor with labs Q4D #Erythematous Rash Continue treatment with Lotrisone, monitor daily for response to cream Code status: full DVT ppx: contraindicated with recent SDH FENGI: HH Dispo: complex dispo needs, appreciate CM input Admission and Anticipated Discharge Date Admission Date: October 11, 2024 Supervising Physician Co-Signing Physician Notes I personally examined the patient and verified cisneros points of history and exam, discussed case, and agree with decision making and plan documented by Dr. Laguna. Unfortunately, patient is unable to enroll in Medicare until May 2025. Family has been updated and [facility]. Due to ambulatory dysfunction, cognitive decline, and repeated falls, patient not safe to be discharged home at this time. Attempted to connect with patient's for update, unable to reach as phone goes right to un-set-up voicemail, case management in contact with patient's son. Subjective Patient was seen and examined at bedside. No acute events reported overnight. Patient finished breakfast without issue and is seated in recliner comfortably watching TV. Patient inquires about when she will be able to be discharge. Review of Systems Review of Systems: As per above Physical Exam Constitutional: WD/WN, vitals as above Eyes: no conjunctival abnormality ENMT: Ears: no external ear abnormality Nose: no external nose abnormality Respiratory: normal respiratory effort, lungs clear to auscultation Cardiovascular: Rate/Rhythm: regular rate and regular rhythm Skin: Mild erythematous rash and lower back/beneath brief Psychiatric: A+Ox3, euthymic affect Results & Data Results & Data Vital Signs (Past 12 Hours) Vital Signs Temp Pulse Resp BP Pulse Ox O2 Del Method 10/23/24 07:28 36.8 C 55 L 18 104/62 94 Room Air 10/22/24 19:40 36.5 C 68 18 137/82 98 Room Air Resident Activity Tracking Resident Involvement: Resident Care Provided Care Provided: Adult Hospital Medicine
[2024-10-23 07:56] LABS: BUN Creatinine Ratio 13.5 (10-20); Calcium 9.1 mg/dl (8.6-10.3); Creatinine Clr Calc Pharmacy 98.7 ml/min
--- NOTE | 2024-10-24 09:57 | Hospitalist Progress Note ---
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 #Ambulatory Dysfunction #Frequent Falls #Extensive Neurological History - seizures, brain tumor resection, subdural hematoma, prior CVA Patient with repeated falls. Likely multifactorial with questionable nutritional status, deconditioning, prior brain tumor resection of a right temporal lobe glioma, recent subdural hematoma 10/04/2024, prior CVA, and seizure disorder. Workup relatively unrevealing - stable CT Head, normal copper, B12, TSH, and Thiamine levels (05/2024), therapeutic depakote level, and stable sodium. EEG without seizure activity. Orthostatics negative x 2. PT/OT recommend 01/12 supervision - poor insight, poor spatial awareness, frequent falls. -case management, son working on safe disposition (see below under dispo planning) #Dispo Planning unable to care for patient at home. Patient did not enroll in Medicare during open enrollment thus she does not have insurance and cannot be placed. Medicare application has been denied at this point. Pt's son contacting the [facility] to see if his mom/dad are eligible for additional services & assistance. -because of lack of coverage, dispo may be difficult #Stable left-sided SDH Stable head CT x 2 - 1 week apart. No changes indicated. pharmacologic DVT proph contraindicated with recent SDH. stable on head CT this admission as well as MRI brain; repeat head CT on 10/18 and again showed stable SDH -2nd to recent fall with head injury -nonoperative management while at [facility] [place] late [place] -Consider repeating CT head at interval until SDH shows resolution #Hyponatremia - acute on chronic Acute on chronic - suspect SIADH. Cortisol and TSH normal. Improved with salt tabs - 1 gm BID. follow periodic BMP #Hypothyroidism TSH WNL. Continue levothyroxine. #GERD - continue PPI #Pancytopenia Seen by heme/onc on 08/31/24 - thought 2nd to chronic depakote usage. B12/TSH/folate/copper levels WNL. Continue to monitor with labs Q4D #Erythematous Rash Continue treatment with Lotrisone, monitor daily for response to cream Code status: full DVT ppx: contraindicated with recent SDH FENGI: HH Dispo: complex dispo needs, appreciate CM input Admission and Anticipated Discharge Date Admission Date: October 11, 2024 Subjective laying in bed, resting, no new problems identified Physical Exam Physical Exam: resting comfortably in bed, nad. heent nc at mmm. breathing unlabored no accessory muscles good effort skin no pallor Results & Data Results & Data Vital Signs (Past 12 Hours) Vital Signs Temp Pulse Resp BP Pulse Ox O2 Del Method 10/24/24 08:11 97.3 F L 56 L 18 108/71 95 Room Air PG Care Time/CCT Total # of Minutes Spent Total Time Spent with Patient: Total time spent is greater than 50% in coordination of care (as documented) at patient's floor/unit and/or counseling patient: Coding Level of Care Code 45562 SUB INP/OBS CARE 2/35MIN Diagnoses Ambulatory dysfunction R26.2 Fall W19.XXXA SDH (subdural hematoma) S06.5XAA Hyponatremia E87.1
[2024-10-24 10:53] LABS: BUN Creatinine Ratio 10.7 (10-20); Creatinine Clr Calc Pharmacy 91.6 ml/min; Potassium 4.1 mmol/L (3.5-5.1)
[2024-10-25 08:05] LABS: BUN Creatinine Ratio 12.5 (10-20); Calcium 9.1 mg/dl (8.6-10.3); Creatinine Clr Calc Pharmacy 91.6 ml/min; Potassium 4.3 mmol/L (3.5-5.1)
--- NOTE | 2024-10-25 08:52 | Hospitalist Progress Note ---
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 #Ambulatory Dysfunction #Frequent Falls #Extensive Neurological History - seizures, brain tumor resection, subdural hematoma, prior CVA Patient with repeated falls. Likely multifactorial with questionable nutritional status, deconditioning, prior brain tumor resection of a right temporal lobe glioma, recent subdural hematoma 10/04/2024, prior CVA, and seizure disorder. Workup relatively unrevealing - stable CT Head, normal copper, B12, TSH, and Thiamine levels (05/2024), therapeutic depakote level, and stable sodium. EEG without seizure activity. Orthostatics negative x 2. PT/OT recommend 01/12 supervision - poor insight, poor spatial awareness, frequent falls. -case management, son working on safe disposition (see below under dispo planning) #Dispo Planning unable to care for patient at home. Patient did not enroll in Medicare during open enrollment thus she does not have insurance and cannot be placed. Medicare application has been denied at this point. Pt's son contacting the [facility] to see if his mom/dad are eligible for additional services & assistance. -because of lack of coverage, dispo may be difficult #Stable left-sided Subdural hematoma Stable head CT x 2 - 1 week apart. No changes indicated. pharmacologic DVT proph contraindicated with recent SDH. stable on head CT this admission as well as MRI brain; repeat head CT on 10/18 and again showed stable SDH -2nd to recent fall with head injury -nonoperative management while at [facility] [place] in late September -Consider repeating CT head at interval until SDH shows resolution #Hyponatremia - acute on chronic Acute on chronic - suspect SIADH. Cortisol and TSH normal. Improved with salt tabs - 1 gm BID -> TID. follow periodic BMP #Hypothyroidism TSH WNL. Continue levothyroxine. #GERD - continue PPI #Pancytopenia Seen by heme/onc on 08/31/24 - thought 2nd to chronic depakote usage. B12/TSH/folate/copper levels WNL. Continue to monitor with labs Q4D #Erythematous Rash Continue treatment with Lotrisone, monitor daily for response to cream DVT ppx: contraindicated with recent SDH Admission and Anticipated Discharge Date Admission Date: October 11, 2024 Supervising Physician Co-Signing Physician Notes I personally examined the patient and verified all cisneros points of history and exam, discussed case, and agree with decision making with Dr Song no new issues, pt denies complaints vitals noted nad heent nc at mmm breathing unlabored no accessory muscles good effort skin no rashes no pallor or icterus falls/weakness - safe environment being sought - difficult situation due to lack of coverage. otherwise as above Subjective Pt seen at bedside this morning. She was resting comfortably on entry into the room. Pt awoken briefly to check in. She states she is feeling okay, no questions or concerns. No abdominal pain, chest pain, or SOB. Pt allowed to go back to sleep. Advised to let us know if any issues. Review of Systems Review of Systems: Per HPI. Physical Exam Physical Exam: General: Easily arousable, no acute distress, pleasant HEENT: Normocephalic, moist oral mucosa, Cardio: Regular rate and rhythm, Resp: Lungs clear to auscultation b/l, no wheezes or rhonchi, Skin: Warm, pink, dry, Results & Data Results & Data Vital Signs (Past 12 Hours) Vital Signs Temp Pulse Resp BP Pulse Ox O2 Del Method 10/25/24 08:45 36.8 C 78 18 126/75 95 Room Air Resident Activity Tracking Resident Involvement: Resident Care Provided Care Provided: Adult Hospital Medicine
[2024-10-25] MEDS: SODIUM CHLORIDE 1 GM TABLET PO SCH (13:21)
--- NOTE | 2024-10-25 16:03 | Billing Data ---
Date of Service October 25, 2024 Coding Level of Care Code 73346 SUB INP/OBS CARE
--- NOTE | 2024-10-26 06:51 | Hospitalist Progress Note ---
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 #Ambulatory Dysfunction #Frequent Falls #Extensive Neurological History - seizures, brain tumor resection, subdural hematoma, prior CVA Patient with repeated falls. Likely multifactorial with questionable nutritional status, deconditioning, prior brain tumor resection of a right temporal lobe glioma, recent subdural hematoma 10/04/2024, prior CVA, and seizure disorder. Workup relatively unrevealing - stable CT Head, normal copper, B12, TSH, and Thiamine levels (05/2024), therapeutic depakote level, and stable sodium. EEG without seizure activity. Orthostatics negative x 2. PT/OT recommend / supervision - poor insight, poor spatial awareness, frequent falls. -case management, son working on safe disposition (see below under dispo planning) - medically stable for discharge, just pending placement #Dispo Planning unable to care for patient at home. Patient did not enroll in Medicare during open enrollment thus she does not have insurance and cannot be placed. Medicare application has been denied at this point. Pt's son [facility] to see if his mom/dad are eligible for additional services & assistance. -because of lack of coverage, dispo may be difficult #Stable left-sided Subdural hematoma Stable head CT x 2 - 1 week apart. No changes indicated. pharmacologic DVT proph contraindicated with recent SDH. stable on head CT this admission as well as MRI brain; repeat head CT on 10/18 and again showed stable SDH -2nd to recent fall with head injury -[place] [facility] [place]Consider repeating CT head at interval until SDH shows resolution #Hyponatremia - acute on chronic Acute on chronic - suspect SIADH. Cortisol and TSH normal. Improved with salt tabs - 1 gm TID. follow periodic BMP #Hypothyroidism TSH WNL. Continue levothyroxine. #GERD - continue PPI #Pancytopenia Seen by heme/onc on 4/23/25 - thought 2nd to chronic depakote usage. B12/TSH/folate/copper levels WNL. Continue to monitor with labs Q4D #Erythematous Rash Continue treatment with Lotrisone, monitor daily for response to cream DVT ppx: contraindicated with recent SDH Admission and Anticipated Discharge Date Admission Date: October 11, 2024 Supervising Physician Co-Signing Physician Notes I personally examined the patient and verified all cisneros points of history and exam, discussed case, and agree with decision making with Dr Song wants to go home. no complaints vitals noted nad heent nc at mmm breathing unlabored no accessory muscles good effort skin no rashes no pallor or icterus falls/weakness - safe environment being sought - difficult situation due to lack of coverage. still in hospital until safe arrangements can be made otherwise as above Subjective Seen at beside this morning. She was initially asleep, easy to awaken. TV on loud volume in the background. Denies pain. Denies nausea or vomiting. She denies questions or concerns at this time. Review of Systems Review of Systems: Per HPI. Physical Exam Physical Exam: General: Easily arousable, no acute distress, pleasant HEENT: Normocephalic, moist oral mucosa, Cardio: Regular rate and rhythm, Resp: Lungs clear to auscultation b/l, no wheezes or rhonchi, Skin: Warm, pink, dry, Results & Data Results & Data Vital Signs (Past 12 Hours) Vital Signs Temp Pulse Resp BP Pulse Ox O2 Del Method 10/25/24 19:26 36.5 C 62 18 125/78 98 Room Air Resident Activity Tracking Resident Involvement: Resident Care Provided Care Provided: Adult Hospital Medicine
[2024-10-26 09:07] LABS: BUN Creatinine Ratio 11.3 (10-20); Calcium 9.5 mg/dl (8.6-10.3); Creatinine Clr Calc Pharmacy 82.8 ml/min; Potassium 4.2 mmol/L (3.5-5.1)
--- NOTE | 2024-10-26 13:19 | Billing Data ---
Date of Service October 26, 2024 Coding Level of Care Code 84090 SUB INP/OBS CARE
--- NOTE | 2024-10-27 06:47 | Hospitalist Progress Note ---
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 #Ambulatory Dysfunction #Frequent Falls #Extensive Neurological History - seizures, brain tumor resection, subdural hematoma, prior CVA Patient with repeated falls. Likely multifactorial with questionable nutritional status, deconditioning, prior brain tumor resection of a right temporal lobe glioma, recent subdural hematoma 10/04/2024, prior CVA, and seizure disorder. Workup relatively unrevealing - stable CT Head, normal copper, B12, TSH, and Thiamine levels (05/2024), therapeutic depakote level, and stable sodium. EEG without seizure activity. Orthostatics negative x 2. PT/OT recommend / supervision - poor insight, poor spatial awareness, frequent falls. -case management, son working on safe disposition (see below under dispo planning) - medically stable for discharge, just pending placement #Dispo Planning unable to care for patient at home. Patient did not enroll in Medicare during open enrollment thus she does not have insurance and cannot be placed. Medicare application has been denied at this point. Pt's son contacting the [facility] to see if his mom/dad are eligible for additional services & assistance. -because of lack of coverage, dispo may be difficult #Stable left-sided Subdural hematoma Stable head CT x 2 - 1 week apart. No changes indicated. pharmacologic DVT proph contraindicated with recent SDH. stable on head CT this admission as well as MRI brain; repeat head CT on 10/18 and again showed stable SDH -2nd to recent fall with head injury -nonoperative management while at [facility] [place] in late September -Consider repeating CT head at interval until SDH shows resolution #Hyponatremia - acute on chronic Acute on chronic - suspect SIADH. Cortisol and TSH normal. Improved with salt tabs - 1 gm TID. follow periodic BMP #Hypothyroidism TSH WNL. Continue levothyroxine. #GERD - continue PPI #Pancytopenia Seen by heme/onc on 4/23/25 - thought 2nd to chronic depakote usage. B12/TSH/folate/copper levels WNL. Continue to monitor with labs Q4D #Erythematous Rash Continue treatment with Lotrisone, monitor daily for response to cream DVT ppx: contraindicated with recent SDH Admission and Anticipated Discharge Date Admission Date: October 11, 2024 Supervising Physician Co-Signing Physician Notes I personally examined the patient and verified all cisneros points of history and exam, discussed case, and agree with decision making with Dr Song no new issues. case management, family still working on placement issues vitals noted nad sleeping comfortably heent nc at mmm breathing unlabored no accessory muscles good effort skin no rashes no pallor or icterus falls/weakness - safe environment being sought - difficult situation due to lack of coverage. still in hospital until safe arrangements can be made - family/case management working on things otherwise as above Subjective Pt seen at bedside, awake watching TV. She states she is feeling really well today. No pain anywhere. She states that she would like to sit up in the chair for a bit this morning and is hungry for breakfast (seen prior to breakfast handout). No questions or concerns for me. Review of Systems Review of Systems: Per HPI. Physical Exam Physical Exam: General: Alert, no acute distress, pleasant HEENT: Normocephalic, moist oral mucosa, Cardio: Regular rate and rhythm, Resp: No increased resp effort, no resp distress Skin: Warm, pink, dry, Results & Data Results & Data Vital Signs (Past 12 Hours) Vital Signs Temp Pulse Resp BP Pulse Ox O2 Del Method 10/26/24 20:11 36.7 C 59 L 16 116/72 100 Room Air Resident Activity Tracking Resident Involvement: Resident Care Provided Care Provided: Adult Hospital Medicine
[2024-10-27 07:25] LABS: Basophils # (auto) 0.02 K/uL (0.00-0.20); Basophils % (auto) 0.5 %; Hematocrit (blood only) 29.4 % (37.0-47.0); Hemoglobin 10.7 g/dl (12.0-16.0); Immature Granulocytes # (auto) 0.01 K/uL (0.01-0.20); Immature Granulocytes % (auto) 0.2 %; Lymphocytes # (auto) 1.46 K/uL (1.20-3.40); Lymphocytes % (auto) 35.9 %; Mean Corpuscular Hgb Conc 36.4 g/dL (32.0-36.0); Mean Corpuscular Volume 90.7 fL (80.0-100.0); Mean Platelet Volume 8.7 fL (9.4-12.4); Monocytes # (auto) 0.47 K/uL (0.11-0.59); Monocytes % (auto) 11.5 %; Neutrophils # (auto) 2.11 K/uL (1.40-6.50); Neutrophils % (auto) 51.9 %; Platelet Count 138 K/uL (130-400); RDW Coefficient of Variation 13.8 % (11.5-14.5); RDW Standard Deviation 45.6 fL (36.4-46.3); Red Blood Count 3.24 M/uL (4.20-5.40); White Blood Count 4.07 K/ul (4.8-10.8)
[2024-10-27 07:57] LABS: BUN Creatinine Ratio 12.7 (10-20); Calcium 9.4 mg/dl (8.6-10.3); Creatinine Clr Calc Pharmacy 81.5 ml/min; Potassium 4.3 mmol/L (3.5-5.1)
--- NOTE | 2024-10-27 16:23 | Billing Data ---
Date of Service October 27, 2024 Coding Level of Care Code 01370 SUB INP/OBS CARE
--- NOTE | 2024-10-28 10:05 | Hospitalist Progress Note ---
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 #Ambulatory Dysfunction #Frequent Falls #Extensive Neurological History - seizures, brain tumor resection, subdural hematoma, prior CVA Patient with repeated falls. Likely multifactorial with questionable nutritional status, deconditioning, prior brain tumor resection of a right temporal lobe glioma, recent subdural hematoma 10/04/2024, prior CVA, and seizure disorder. Workup relatively unrevealing - stable CT Head, normal copper, B12, TSH, and Thiamine levels (05/2024), therapeutic depakote level, and stable sodium. EEG without seizure activity. Orthostatics negative x 2. PT/OT recommend / supervision - poor insight, poor spatial awareness, frequent falls. -case management, son working on safe disposition (see below under dispo planning) - medically stable for discharge, just pending placement #Dispo Planning unable to care for patient at home. Patient did not enroll in Medicare during open enrollment thus she does not have insurance and cannot be placed. Medicare application has been denied at this point. Pt's son contacting the [facility] to see if his mom/dad are eligible for additional services & assistance. -because of lack of coverage, dispo may be difficult #Stable left-sided Subdural hematoma Stable head CT x 2 - 1 week apart. No changes indicated. pharmacologic DVT proph contraindicated with recent SDH. stable on head CT this admission as well as MRI brain; repeat head CT on 10/18 and again showed stable SDH -2nd to recent fall with head injury -nonoperative management while at [facility] [place] in late September -Consider repeating CT head at interval until SDH shows resolution #Hyponatremia - acute on chronic Acute on chronic - suspect SIADH. Cortisol and TSH normal. Improved with salt tabs - 1 gm TID. follow periodic BMP #Hypothyroidism TSH WNL. Continue levothyroxine. #GERD - continue PPI #Pancytopenia Seen by heme/onc on 4/23/25 - thought 2nd to chronic depakote usage. B12/TSH/folate/copper levels WNL. Continue to monitor with labs Q4D #Erythematous Rash Continue treatment with Lotrisone, monitor daily for response to cream DVT ppx: contraindicated with recent SDH Admission and Anticipated Discharge Date Admission Date: October 11, 2024 Supervising Physician Co-Signing Physician Notes I personally examined the patient and verified all cisneros points of history and exam, discussed case, and agree with decision making with Dr Shore no new issues. case management, family still working on placement issues. pt has no complaints vitals noted nad pleasant heent nc at mmm breathing unlabored no accessory muscles good effort skin no rashes no pallor or icterus falls/weakness - safe environment being sought - difficult situation due to lack of coverage. still in hospital until safe arrangements can be made - family/case management working on things, safe environment here for now otherwise as above Subjective Patient seen and evaluated at bedside this morning. No acute events overnight. Resting comfortably in bed. No acute complaints. VSS. Remains pending placement, insurance. Review of Systems Review of Systems: reviewed, per HPI Physical Exam Physical Exam: Constitutional: well-appearing, no acute distress HEENT: NCAT, no conjunctival injection CV: extremities well-perfused, no LE edema Resp: no increased work of breathing GI: nondistended MSK: no gross deformities appreciated Skin: warm, dry, no rash appreciated Neuro: alert, oriented Results & Data Results & Data Vital Signs (Past 12 Hours) Vital Signs Temp Pulse Resp BP Pulse Ox O2 Del Method 10/28/24 08:25 36.5 C 68 18 113/71 98 Room Air 10/28/24 07:27 Room Air Resident Activity Tracking Resident Involvement: Resident Care Provided Care Provided: Adult Hospital Medicine
--- NOTE | 2024-10-28 17:02 | Billing Data ---
Date of Service October 28, 2024 Coding Level of Care Code 30717 SUB INP/OBS CARE
--- NOTE | 2024-10-29 07:03 | Hospitalist Progress Note ---
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 #Ambulatory Dysfunction #Frequent Falls #Extensive Neurological History - seizures, brain tumor resection, subdural hematoma, prior CVA Patient with repeated falls. Likely multifactorial with questionable nutritional status, deconditioning, prior brain tumor resection of a right temporal lobe glioma, recent subdural hematoma 10/04/2024, prior CVA, and seizure disorder. Workup relatively unrevealing - stable CT Head, normal copper, B12, TSH, and Thiamine levels (05/2024), therapeutic depakote level, and stable sodium. EEG without seizure activity. Orthostatics negative x 2. PT/OT recommend / supervision - poor insight, poor spatial awareness, frequent falls. -case management, son working on safe disposition (see below under dispo planning) - medically stable for discharge, just pending placement #Dispo Planning unable to care for patient at home. Patient did not enroll in Medicare during open enrollment thus she does not have insurance and cannot be placed. Medicare application has been denied at this point. Pt's son contacting the [facility] to see if his mom/dad are eligible for additional services & assistance. -because of lack of coverage, dispo may be difficult #Stable left-sided Subdural hematoma Stable head CT x 2 - 1 week apart. No changes indicated. pharmacologic DVT proph contraindicated with recent SDH. stable on head CT this admission as well as MRI brain; repeat head CT on 10/18 and again showed stable SDH -2nd to recent fall with head injury -nonoperative management while at [facility] [place] in late September -Consider repeating CT head at interval until SDH shows resolution #Hyponatremia - acute on chronic Acute on chronic - suspect SIADH. Cortisol and TSH normal. Improved with salt tabs - 1 gm TID. follow periodic BMP #Hypothyroidism TSH WNL. Continue levothyroxine. #GERD - continue PPI #Pancytopenia Seen by heme/onc on 4/23/25 - thought 2nd to chronic depakote usage. B12/TSH/folate/copper levels WNL. Continue to monitor with labs Q4D #Erythematous Rash Continue treatment with Lotrisone, monitor daily for response to cream DVT ppx: contraindicated with recent SDH Admission and Anticipated Discharge Date Admission Date: October 11, 2024 Supervising Physician Co-Signing Physician Notes I personally examined the patient and verified all cisneros points of history and exam, discussed case, and agree with decision making with Dr Mcnamara no new problems, appears that dispo situation may move forward more as [facility]home situation next week vitals noted nad resting comfortably heent nc at mmm breathing unlabored no accessory muscles good effort skin no rashes no pallor or icterus falls/weakness - safe environment being sought - difficult situation due to lack of coverage. still in hospital until safe arrangements can be made - family/case management working on things, see their notes - but unlikely to be able to build any definitive plan until next week otherwise as above Subjective Patient seen and examined this morning. Hard of hearing, so interview was stilted. Denies LAKHANI, SOB, CP, abd pain, n/v. Has not tried getting out of bed by herself but was moved to bedside chair. Did well with breakfast. No new complaints Review of Systems Review of Systems: reviewed, per HPI Physical Exam Physical Exam: General: EMMONAK, well-appearing, no acute distress HEENT: NCAT, MMM, no conjunctival injection CV: RRR, no m/r/g, no LE edema Resp: CTAB, no increased work of breathing GI: nondistended, +BS MSK: no gross deformities appreciated Skin: warm, dry, no rash appreciated Neuro: alert, oriented Results & Data Results & Data Vital Signs (Past 12 Hours) Vital Signs Temp Pulse Resp BP Pulse Ox O2 Del Method 10/28/24 19:55 36.8 C 69 20 115/58 L 99 Room Air Resident Activity Tracking Resident Involvement: Resident Care Provided Care Provided: Adult Hospital Medicine
[2024-10-29 07:49] LABS: BUN Creatinine Ratio 14.5 (10-20); Calcium 9.4 mg/dl (8.6-10.3); Creatinine Clr Calc Pharmacy 82.8 ml/min; Potassium 3.9 mmol/L (3.5-5.1)
--- NOTE | 2024-10-29 18:02 | Billing Data ---
Date of Service October 29, 2024 Coding Level of Care Code 11971 SUB INP/OBS CARE
--- NOTE | 2024-10-30 11:14 | Hospitalist Progress Note ---
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 #Ambulatory Dysfunction #Frequent Falls #Extensive Neurological History - seizures, brain tumor resection, subdural hematoma, prior CVA Patient with repeated falls. Likely multifactorial with questionable nutritional status, deconditioning, prior brain tumor resection of a right temporal lobe glioma, recent subdural hematoma 10/04/2024, prior CVA, and seizure disorder. Workup relatively unrevealing - stable CT Head, normal copper, B12, TSH, and Thiamine levels (05/2024), therapeutic depakote level, and stable sodium. EEG without seizure activity. Orthostatics negative x 2. PT/OT recommend 01/12 supervision - poor insight, poor spatial awareness, frequent falls. - case management consulted, son working on safe disposition (see below under dispo planning) - medically stable for discharge, just pending placement #Dispo Planning unable to care for patient at home. Patient did not enroll in Medicare during open enrollment thus she does not have insurance and cannot be placed. Medicare application has been denied at this point. Pt's son contacting the [facility] to see if his mom/dad are eligible for additional services & assistance. - because of lack of coverage, dispo may be difficult #Stable left-sided Subdural hematoma Stable head CT x 2 - 1 week apart. No changes indicated. pharmacologic DVT proph contraindicated with recent SDH. stable on head CT this admission as well as MRI brain; repeat head CT on 10/18 and again showed stable SDH - 2nd to recent fall with head injury - nonoperative management while at [facility] [place] in late September - Consider repeating CT head at interval until SDH shows resolution #Hyponatremia - acute on chronic Acute on chronic - suspect SIADH. Cortisol and TSH normal. Improved with salt tabs - 1 gm TID. follow periodic BMP - most recent Na 129 10/29. - repeat BMP in Am 10/31 #Hypothyroidism - TSH WNL. Continue levothyroxine. #GERD - continue PPI #Pancytopenia Seen by heme/onc on 08/31/24 - thought 2nd to chronic Depakote usage. B12/TSH/folate/copper levels WNL. Continue to monitor with CBC Q4D. #Erythematous Rash - Continue treatment with Lotrisone, monitor daily for response to cream DVT ppx: contraindicated with recent SDH Dispo: continue inpt stay on med/surg awaiting placement Admission and Anticipated Discharge Date Admission Date: October 11, 2024 Supervising Physician Co-Signing Physician Notes The patient was not seen by me. The chart was reviewed. Case discussed with KASSIE Yu. Agree with assessment and plan Subjective Patient seen at bedside. She is doing well. Denies any dizziness, lightheadedness, chest pain, abdominal pain. She would just like to go home. Review of Systems Review of Systems: see HPI Physical Exam Physical Exam: The patient is awake, alert and oriented 3, well developed and well nourished, normocephalic and atraumatic, in no acute distress. Non-toxic appearing. HEENT- EOMI, mucous membranes moist. Hearing grossly intact. Heart-normal S1 and S2. No murmurs, rubs or gallops. Lungs-clear bilaterally, no respiratory distress, no accessory muscle use. Abdomen-normal bowel sounds and soft. No ascites noted. Non-tender. Extremities- no clubbing, cyanosis, or edema. Psychiatric-normal affect. Results & Data Results & Data Vital Signs (Past 12 Hours) Vital Signs Temp Pulse Resp BP Pulse Ox O2 Del Method 10/30/24 07:37 36.6 C 78 16 114/75 96 Room Air PG Care Time/CCT Total # of Minutes Spent Total Time Spent with Patient: Total time spent is greater than 50% in coordination of care (as documented) at patient's floor/unit and/or counseling patient: Coding Level of Care Code 03956 SUB INP/OBS CARE 06/04MIN Diagnoses Ambulatory dysfunction R26.2 Fall W19.XXXA SDH (subdural hematoma) S06.5XAA Hyponatremia E87.1
[2024-10-31 07:44] LABS: Basophils # (auto) 0.01 K/uL (0.00-0.20); Basophils % (auto) 0.2 %; Hematocrit (blood only) 30.1 % (37.0-47.0); Hemoglobin 10.5 g/dl (12.0-16.0); Immature Granulocytes # (auto) 0.01 K/uL (0.01-0.20); Immature Granulocytes % (auto) 0.2 %; Lymphocytes # (auto) 1.72 K/uL (1.20-3.40); Mean Corpuscular Hemoglobin 32.3 pg (25.0-34.0); Mean Corpuscular Hgb Conc 34.9 g/dL (32.0-36.0); Mean Corpuscular Volume 92.6 fL (80.0-100.0); Mean Platelet Volume 8.7 fL (9.4-12.4); Monocytes # (auto) 0.43 K/uL (0.11-0.59); Neutrophils # (auto) 2.13 K/uL (1.40-6.50); Neutrophils % (auto) 49.6 %; Platelet Count 123 K/uL (130-400); RDW Coefficient of Variation 13.7 % (11.5-14.5); RDW Standard Deviation 46.3 fL (36.4-46.3); Red Blood Count 3.25 M/uL (4.20-5.40)
[2024-10-31 08:05] LABS: BUN Creatinine Ratio 11.8 (10-20); Calcium 9.4 mg/dl (8.6-10.3); Creatinine Clr Calc Pharmacy 75.5 ml/min; Potassium 4.2 mmol/L (3.5-5.1)
--- NOTE | 2024-10-31 11:26 | Hospitalist Progress Note ---
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 #Ambulatory Dysfunction #Frequent Falls #Extensive Neurological History - seizures, brain tumor resection, subdural hematoma, prior CVA Patient with repeated falls. Likely multifactorial with questionable nutritional status, deconditioning, prior brain tumor resection of a right temporal lobe glioma, recent subdural hematoma 10/04/2024, prior CVA, and seizure disorder. Workup relatively unrevealing - stable CT Head, normal copper, B12, TSH, and Thiamine levels (05/2024), therapeutic depakote level, and stable sodium. EEG without seizure activity. Orthostatics negative x 2. PT/OT recommend 01/12 supervision - poor insight, poor spatial awareness, frequent falls. case management consulted, son working on safe disposition (see below under dispo planning) medically stable for discharge, just pending placement #Dispo Planning unable to care for patient at home. Patient did not enroll in Medicare during open enrollment thus she does not have insurance and cannot be placed. Medicare application has been denied at this point. Pt's son contacting the [facility] to see if his mom/dad are eligible for additional services & assistance. because of lack of coverage, dispo may be difficult #Stable left-sided Subdural hematoma Stable head CT x 2 - 1 week apart. No changes indicated. pharmacologic DVT proph contraindicated with recent SDH. stable on head CT this admission as well as MRI brain; repeat head CT on 10/18 and again showed stable SDH 2nd to recent fall with head injury nonoperative management while at [facility] [place] in late [place] Consider repeating CT head at interval until SDH shows resolution #Hyponatremia - acute on chronic Acute on chronic - suspect SIADH. Cortisol and TSH normal. Improved with salt tabs - 1 gm TID. follow periodic BMP - most recent Na n132 10/31. #Hypothyroidism - TSH WNL. Continue levothyroxine. #GERD - continue PPI #Pancytopenia - Seen by heme/onc on 08/31/24 - thought 2nd to chronic Depakote usage. B12/TSH/folate/copper levels WNL. Continue to monitor with CBC Q4D. #Erythematous Rash - Continue treatment with Lotrisone, monitor daily for response to cream DVT ppx: contraindicated with recent SDH Dispo: continue inpt stay on med/surg awaiting placement Admission and Anticipated Discharge Date Admission Date: October 11, 2024 Cash Ramirez was seen and examined this morning. PT present at bedside. She reports she is feeling well and wants to return home as soon as possible. Physical Exam Physical Exam: General: no acute distress; non-toxic appearing; well-nourished; cooperative HEENT: normocephalic, atraumatic; no scleral icterus; PERRLA w/ EOMs intact; vision and hearing grossly intact Neck: trachea midline Skin: warm, dry without signs of tenting; no cyanosis; no rashes, bruising, lesions, or erythema noted Lungs: no acute respiratory distress; symmetrical chest wall expansion MSK: no edema noted in the LEs b/l, nonerythematous Neuro: A&Ox3; normal mood and affect; fluent speech; no focal deficits Results & Data Results & Data Vital Signs (Past 12 Hours) Vital Signs Temp Pulse Resp BP Pulse Ox O2 Del Method 10/31/24 10:07 66 107/64 10/31/24 07:43 36.4 C L 70 18 91/55 L 99 Room Air PG Care Time/CCT Total # of Minutes Spent Total Time Spent with Patient: Total time spent is greater than 50% in coordination of care (as documented) at patient's floor/unit and/or counseling patient: Coding Level of Care Code 29102 SUB INP/OBS CARE 06/04MIN Diagnoses Ambulatory dysfunction R26.2 Fall W19.XXXA SDH (subdural hematoma) S06.5XAA Hyponatremia E87.1
--- NOTE | 2024-11-01 12:06 | Hospitalist Progress Note ---
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 #Ambulatory Dysfunction #Frequent Falls Patient with repeated falls. Likely multifactorial with questionable nutritional status, deconditioning, prior brain tumor resection of a right temporal lobe glioma, recent subdural hematoma 10/04/2024, prior CVA, and seizure disorder. Workup relatively unrevealing - stable CT Head, normal copper, B12, TSH, and Thiamine levels (05/2024), therapeutic depakote level, and stable sodium. EEG without seizure activity. Orthostatics negative x 2. PT/OT recommend 01/12 supervision - poor insight, poor spatial awareness, frequent falls. case management consulted, son working on safe disposition medically stable for discharge, just pending placement (very difficult disposition) #Dispo Planning unable to care for patient at home. Patient did not enroll in Medicare during open enrollment thus she does not have insurance and cannot be placed. Medicare application has been denied at this point. Pt's son contacting the [facility] to see if his mom/dad are eligible for additional services & assistance. because of lack of coverage, dispo may be difficult #Stable left-sided Subdural hematoma Stable head CT x 2 - 1 week apart. No changes indicated. pharmacologic DVT proph contraindicated with recent SDH. stable on head CT this admission as well as MRI brain; repeat head CT on 10/18 and again showed stable SDH 2nd to recent fall with head injury nonoperative management [place] [facility] Consider repeating CT head at interval until SDH shows resolution #Hyponatremia - acute on chronic Acute on chronic - suspect SIADH. Cortisol and TSH normal. Improved with salt tabs - 1 gm TID. follow periodic BMP #Extensive Neurological History - seizures, brain tumor resection, subdural hematoma, prior CVA #Hypothyroidism - TSH WNL. Continue levothyroxine. #GERD - continue PPI #Pancytopenia - Seen by heme/onc on 08/31/24 - thought 2nd to chronic Depakote usage. B12/TSH/folate/copper levels WNL. Continue to monitor with CBC Q4D. #Erythematous Rash - Continue treatment with Lotrisone, monitor daily for response to cream DVT ppx: contraindicated with recent SDH Dispo: she has a difficult disposition, social work on board Admission and Anticipated Discharge Date Admission Date: October 11, 2024 Subjective patient seen and examined, sitting up in the chair , denies any complaints Review of Systems Review of Systems: All systems reviewed are negative, apart from the ones contained in the history. Physical Exam Physical Exam: The patient is awake, alert and oriented 2, well developed and well nourished, normocephalic and atraumatic, lying in bed and in no acute distress. HEENT--PERRL, EOMI, mucous membranes and oropharynx mildly dry Neck--supple. No JVD. No bruits. Thyroid normal, trachea midline, no adenopathy. Heart--normal S1 and S2. No murmurs, rubs or gallops. Lungs--clear bilaterally, no respiratory distress, no accessory muscle use. Abdomen--normal bowel sounds and soft. Extremities--no cyanosis or clubbing. No edema. Dermatologic--normal skin turgor, normal color, no abnormal lymph nodes, no rash. Neurologic--cranial nerves II through XII grossly intact. Rheumatologic--normal range of motion. Psychiatric--normal affect. Results & Data Results & Data Vital Signs (Past 12 Hours) Vital Signs Temp Pulse Resp BP Pulse Ox O2 Del Method 11/01/24 07:49 97.9 F 54 L 16 121/75 97 Room Air PG Care Time/CCT Total # of Minutes Spent Total Time Spent with Patient: Total time spent is greater than 50% in coordination of care (as documented) at patient's floor/unit and/or counseling patient: Coding Level of Care Code 63584 SUB INP/OBS CARE 2/35MIN Diagnoses Ambulatory dysfunction R26.2 Fall W19.XXXA SDH (subdural hematoma) S06.5XAA Hyponatremia E87.1 Time Spent (min) 35
[2024-11-02 07:27] LABS: BUN Creatinine Ratio 16.4 (10-20); Calcium 9.2 mg/dl (8.6-10.3); Creatinine Clr Calc Pharmacy 84.1 ml/min; Potassium 4.3 mmol/L (3.5-5.1)
[2024-11-02 08:28] VITALS: BP 112/66; PULSE 72; RESP 18; TEMP 98.4; O2SAT 95
--- NOTE | 2024-11-02 11:01 | Hospitalist Progress Note ---
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 #Ambulatory Dysfunction #Frequent Falls Patient with repeated falls. Likely multifactorial with questionable nutritional status, deconditioning, prior brain tumor resection of a right temporal lobe glioma, recent subdural hematoma 10/04/2024, prior CVA, and seizure disorder. Workup relatively unrevealing - stable CT Head, normal copper, B12, TSH, and Thiamine levels (05/2024), therapeutic depakote level, and stable sodium. EEG without seizure activity. Orthostatics negative x 2. PT/OT recommend 01/12 supervision - poor insight, poor spatial awareness, frequent falls. case management consulted, son working on safe disposition medically stable for discharge, just pending placement (very difficult disposition) #Dispo Planning unable to care for patient at home. Patient did not enroll in Medicare during open enrollment thus she does not have insurance and cannot be placed. Medicare application has been denied at this point. Pt's son contacting the [facility] to see if his mom/dad are eligible for additional services & assistance. because of lack of coverage, dispo may be difficult #Stable left-sided Subdural hematoma Stable head CT x 2 - 1 week apart. No changes indicated. pharmacologic DVT proph contraindicated with recent SDH. stable on head CT this admission as well as MRI brain; repeat head CT on 10/18 and again showed stable SDH 2nd to recent fall with head injury nonoperative management while at [facility] [place] in late May Consider repeating CT head at interval until SDH shows resolution #Hyponatremia - acute on chronic Acute on chronic - suspect SIADH. Improved with salt tabs - 1 gm TID. follow periodic BMP #Extensive Neurological History - seizures, brain tumor resection, subdural hematoma, prior CVA #Hypothyroidism - TSH WNL. Continue levothyroxine. #GERD - continue PPI #Pancytopenia - Seen by heme/onc on 08/31/24 - thought 2nd to chronic Depakote usage. B12/TSH/folate/copper levels WNL. Continue to monitor with CBC Q4D. #Erythematous Rash - Continue treatment with Lotrisone, monitor daily for response to cream DVT ppx: contraindicated with recent SDH Dispo: she has a difficult disposition, social work on board Admission and Anticipated Discharge Date Admission Date: October 11, 2024 Subjective patient seen and examined, sitting up in the chair , denies any complaints Review of Systems Review of Systems: All systems reviewed are negative, apart from the ones contained in the history. Physical Exam Physical Exam: The patient is awake, alert and oriented 2, well developed and well nourished, normocephalic and atraumatic, lying in bed and in no acute distress. HEENT--PERRL, EOMI, mucous membranes and oropharynx mildly dry Neck--supple. No JVD. No bruits. Thyroid normal, trachea midline, no adenopathy. Heart--normal S1 and S2. No murmurs, rubs or gallops. Lungs--clear bilaterally, no respiratory distress, no accessory muscle use. Abdomen--normal bowel sounds and soft. Extremities--no cyanosis or clubbing. No edema. Dermatologic--normal skin turgor, normal color, no abnormal lymph nodes, no ra sh. Neurologic--cranial nerves II through XII grossly intact. Rheumatologic--normal range of motion. Psychiatric--normal affect. Results & Data Results & Data Vital Signs (Past 12 Hours) Vital Signs Temp Pulse Resp BP Pulse Ox O2 Del Method 11/02/24 08:27 98.4 F 72 18 112/66 95 Room Air PG Care Time/CCT Total # of Minutes Spent Total Time Spent with Patient: Total time spent is greater than 50% in coordination of care (as documented) at patient's floor/unit and/or counseling patient: Coding Level of Care Code 08428 SUB INP/OBS CARE 2/35MIN Diagnoses Ambulatory dysfunction R26.2 Fall W19.XXXA SDH (subdural hematoma) S06.5XAA Hyponatremia E87.1 Time Spent (min) 35
--- NOTE | 2024-11-02 12:28 | Discharge Summary ---
Date of Service November 02, 2024 Admission HPI Per Admitting Provider Patient is a 64-year-old female with past medical history of seizures, CVA, brain tumor resection 2000, chronic hyponatremia, hypothyroidism, hyperlipidemia, GERD, and recent subdural hematoma 10/04 that was suspected to be subacute after fall. Patient presented via EMS today after a fallhead CT shows no change in hypodense collection, laboratories show NA 130, patient reportedly at baseline similar to last week. She is being admitted for ambulatory dysfunction and confusion and unable to care for herself at home. Patient seen at bedside. There was no family present, it was reported that her called EMS however he has significant ambulatory dysfunction at baseline and has caregivers at home. They live at home alone together. Patient stated she is not sure why she came in, EMS reported that she fell. She stated she feels fine at bedside just tired and sleeping frequently on exam however responds to verbal stimuli. She has no complaintsno dizziness, lightheadedness, confusion, chest pain, shortness of breath, abdominal pain, numbness or tingling, extremity pain. She stated she is unsure if she got her home medications today. she is oriented to her name only, cannot remember her birthdate or the current month. She was aware that she was in the hospital however did not know which one. Admission Exam (Per Admitting) Constitutional The patient is awake, alert and oriented 3, well developed and well nourished, normocephalic and atraumatic, lying in bed and in no acute distress. HEENT--PERRL, EOMI, mucous membranes and oropharynx mildly dry Neck--supple. No JVD. No bruits. Thyroid normal, trachea midline, no adenopathy. Heart--normal S1 and S2. No murmurs, rubs or gallops. Lungs--clear bilaterally, no respiratory distress, no accessory muscle use. Abdomen--normal bowel sounds and soft. Extremities--no cyanosis or clubbing. No edema. Dermatologic--normal skin turgor, normal color, no abnormal lymph nodes, no rash. Neurologic--cranial nerves II through XII grossly intact. Rheumatologic--normal range of motion. Psychiatric--normal affect. 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 #Ambulatory Dysfunction #Frequent Falls Patient with repeated falls. Likely multifactorial with questionable nutritional status, deconditioning, prior brain tumor resection of a right temporal lobe glioma, recent subdural hematoma 10/04/2024, prior CVA, and seizure disorder. Workup relatively unrevealing - stable CT Head, normal copper, B12, TSH, and Thiamine levels (05/2024), therapeutic depakote level, and stable sodium. EEG without seizure activity. Orthostatics negative x 2. PT/OT recommend 01/12 supervision - poor insight, poor spatial awareness, frequent falls. case management consulted, son working on safe disposition medically stable for discharge, just pending placement (very difficult disposition) #Dispo Planning unable to care for patient at home. Patient did not enroll in Medicare during open enrollment thus she does not have insurance and cannot be placed. Medicare application has been denied at this point. Pt's son contacting the [facility] to see if his mom/dad are eligible for additional services & assistance. because of lack of coverage, dispo may be difficult #Stable left-sided Subdural hematoma Stable head CT x 2 - 1 week apart. No changes indicated. pharmacologic DVT proph contraindicated with recent SDH. stable on head CT this admission as well as MRI brain; repeat head CT on 10/18 and again showed stable SDH 2nd to recent fall with head injury nonoperative management while at [place] in late May Consider repeating CT head at interval until SDH shows resolution #Hyponatremia - acute on chronic Acute on chronic - suspect SIADH. Improved with salt tabs - 1 gm TID. follow periodic BMP #Extensive Neurological History - seizures, brain tumor resection, subdural hematoma, prior CVA #Hypothyroidism - TSH WNL. Continue levothyroxine. #GERD - continue PPI #Pancytopenia - Seen by heme/onc on 08/31/24 - thought 2nd to chronic Depakote usage. B12/TSH/folate/copper levels WNL. Continue to monitor with CBC Q4D. #Erythematous Rash - Continue treatment with Lotrisone, monitor daily for response to cream DVT ppx: contraindicated with recent SDH Dispo: she has a difficult disposition, social work on board. I spoke extensively with the son, who insisted he wants to take her home. he says he is at her home everyday, helping with everything, steward/stewardess club car, medications etc. Coding Level of Care Code 12270 INP/OBS DISCH >30 MIN Diagnoses Ambulatory dysfunction R26.2 Fall W19.XXXA SDH (subdural hematoma) S06.5XAA Hyponatremia E87.1 Time Spent (min) 35
== END 2024-11-02 15:39 | disposition home or self-care (01) | DRG 556 ==
LOC: ED 18:14 → 3N 21:41 → SUATTDRO 21:41 → 3N 22:19

== ENCOUNTER 2024-11-23 20:10 | Observation (INO) ==
[2024-11-23 20:52] LABS: Hematocrit (blood only) 35.8 % (37.0-47.0); Hemoglobin 13.1 g/dl (12.0-16.0); Immature Granulocytes # (auto) 0.02 K/uL (0.01-0.20); Immature Granulocytes % (auto) 0.3 %; Mean Corpuscular Hemoglobin 31.7 pg (25.0-34.0); Mean Corpuscular Volume 86.7 fL (80.0-100.0); Platelet Count 128 K/uL (130-400); RDW Standard Deviation 41.2 fL (36.4-46.3); Red Blood Count 4.13 M/uL (4.20-5.40); White Blood Count 7.94 K/ul (4.8-10.8)
[2024-11-23 20:52] LABS: Base Excess VBG 1.7 mEq/L; HCO3 VBG 27 mmol/L; Oxygen Saturation VBG < 60.0 %; PCO2 VBG 45 mmHg (38-50); PO2 VBG < 20 mmHg; pH VBG 7.39 (7.36-7.41)
[2024-11-23 21:05] LABS: Alanine Aminotransferase 19 U/L (7-52); Alkaline Phosphatase 55 U/L (34-104); Anion Gap 6 (3-11); Bilirubin,Total 0.9 mg/dl (0.2-1.0); Blood Urea Nitrogen 6 mg/dl (6-23); Calcium 10.1 mg/dl (8.6-10.3); Carbon Dioxide 27 mmol/L (21-32); Chloride 91 mmol/L (98-107); Glucose 129 mg/dl (70-99(Fasting)); Magnesium 1.7 mg/dl (1.7-2.4); Potassium 4.2 mmol/L (3.5-5.1); Sodium 124 mmol/L (136-145); Total Protein 7.7 gm/dl (6.0-8.3)
[2024-11-23 21:21] LABS: INR 1.0 (0.9-1.1); Partial Thromboplastin Time 30 Seconds (21-31); Prothrombin Time 11.2 Seconds (9.0-12.0)
--- NOTE | 2024-11-23 23:02 | CT Scan Report ---
Exam(s): CT HEAD Without Contrast EXAM: CT Head Without Intravenous Contrast CLINICAL HISTORY: Reason for exam: ams. TECHNIQUE: Axial computed tomography images of the head/brain without intravenous contrast. CTDI is 5 38.31 mGy and DLP is 625.8 mGy-cm. Automated exposure control was utilized for the study. A dose lowering technique was utilized adhering to the principles of ALARA. COMPARISON: 10/18/2024 FINDINGS: Artifacts: Images are degraded by motion artifact. Brain: No intracranial hemorrhage, mass-effect, or cerebral edema. Atrophy and chronic microvascular ischemic changes. Calcifications in the brainstem. Encephalomalacia in the right temporal lobe. In the. Ventricles: Unremarkable. Bones/joints: Postsurgical changes in the right skull. Soft tissues: Unremarkable. Sinuses: No acute sinusitis. Mastoid air cells: Partial right mastoid effusion. IMPRESSION: 1. No acute intracranial abnormality. Electronically signed by: Mauricio Woodall MD 11/23/24 23:00 PM
--- NOTE | 2024-11-23 23:20 | XRay Report ---
Exam(s): XR CXR 1 VIEW EXAM: XR Chest, 1 View CLINICAL HISTORY: Sepsis. TECHNIQUE: Frontal view of the chest. COMPARISON: 10/11/2024. FINDINGS: Heart is mildly enlarged. Hypoventilation with bibasilar atelectasis. No CHF. No definite focal infiltrate. No pleural effusion or pneumothorax. Bones are unchanged. IMPRESSION: Hypoventilation with bibasilar atelectasis. Otherwise no change. Electronically signed by: Jain Cross M.D. 11/23/24 23:19 PM
[2024-11-23 23:43] LABS: Appearance Urine Clear (Clear); Bacteria Urine Automated 3+ (None Seen); Cast Urine Automated 0-2 /lpf (0-2); Epithelial Cell Urine Auto 0-2 /hpf (0-2); Glucose Urine UA Negative (Negative); RBC Urine Automated 0-2 /hpf (0-2); WBC Urine Automated 21-50 /hpf (0-5)
--- NOTE | 2024-11-23 23:52 | History & Physical Report ---
Date of Service November 23, 2024 Assessment & Plan (1) Acute confusion: (2) Hypothyroidism: (3) Urinary tract infection: (4) Hyponatremia: Plan Pt is a 64 yo female with a past med hx of CVA, brain cancer s/p resection in 2000 with reported baseline confusion at times since, hx seizures, chronic hyponatremia, hypothyroidism, HLD, GERD, and subdural hematoma after a fall 10/04 who presents to the hospital on 11/23 with family for 1 day worsening confusion and urinary frequency. #Confusion/AMS - multiple etiologies possible including hyponatremia (although mild) vs UTI - was living with who just passed and is to have services 11/24 and 11/25 - family reports behavior today is consistent with prior UTIs - CT head; no acute process, no intracranial bleed noted, does have prior hx of subdural after a fall in September but this is not commented on on this report - will tx UTI, hydrate - aspiration/fall precautions #Hyponatremia - daughter notes hx of hyponatremia for this pt, per our records high 120s/low 130s - not on any diuretics per med list - Na on admission 124 - given NSS 125/hr - will fluid restrict, allow generous salt use - am serum osmol, urine osmol, and urine sodium #Urinary tract infection - daughter reporting pt has urinary frequency and pt has tenderness over the bladder on exam - UA on admission appears infectious - CTX - urine cx pending - blood cx ordered by the ED pending #Hx seizures - continue home seizure meds - valproic acid levels #Hypothyroidism - continue home medication - TSH in October was wnl VTE ppx: defer for now as family mentions taking her home in the next day to go to the but if she stays longer, could consider this History of Present Illness Chief Complaint: Hyponatremia Primary Care Provider: Aleshia Morton MD Pt is a 64 yo female with a past med hx of CVA, brain cancer s/p resection in 2000 with reported baseline confusion at times since, hx seizures, chronic hyponatremia, hypothyroidism, HLD, GERD, and subdural hematoma after a fall 10/04 who presents to the hospital on 11/23 with family for 1 day worsening confusion and urinary frequency. Pt seen at bedside, laying comfortably in bed. Daughter is present and gives hx due to pt's confusion. According to daughter, pt's recently and rather suddenly who was the person she was living with. Daughter states over the last day or two she noticed that the pt was more confused, slow to respond, answering most questions as yes/no only. Daughter states this is very run of the mill for how she acts when she gets a UTI, which she has had before, and noted pt was urinating frequently. Otherwise, daughter states she is in her normal st ate of health; no nausea or vomiting. Daughter states that contact for this patient is pts son Ferdo, who lives close to the pt. Family is going to have service for pts tomorrow/Thu day and is hoping pt will be better by then for discharge. Daughter notes chronic hyponatremia and pt does not take salt pills, was advised by doctors to generously salt her food. Daughter reports she thinks patient is compliant with her medications but Fredo has been the main one to help her out. Pt had been living with only until he passed very recently. Evaluated pt, who is very unreliable, essentially only responds with yes/no questions. When I asked her what the year was she said "yeah". She did, however, ask in clarity for a cup of water with no ice because she was thirsty, but when asked if she had abdominal pain when palpated with visual grimace, she replied "no" and did not elaborate. I asked pt if she had been drinking a lot of water recently and she responded "yeah". Pt denies chest pain, SOB, dysuria, nausea, or vomiting. Family is trying to coordinate plans for her. May be able to live with Fredo as he has a bathroom on the first floor but unsure at this time. Allergies Allergy/AdvReac Type Severity Reaction Status Date / Time Sulfa (Sulfonamide Allergy Intermediate ITCHING, Verified 10/11/24 20:28 Antibiotics) BURNING Home Medications Medication Instructions Recorded Confirmed Type acetaminophen 325 mg tablet 650 mg PO Q6 PRN Fever Or Pain 01/19/23 11/23/24 History (Tylenol) levothyroxine 50 mcg tablet 50 mcg PO DAILY #90 tabs 03/30/24 11/23/24 Rx docusate sodium 100 mg capsule 100 mg PO BID #60 caps 09/09/24 11/23/24 Rx polyethylene glycol 3350 17 gram 17 g PO DAILY #30 ea 09/09/24 11/23/24 Rx oral powder packet (Miralax) montelukast 10 mg tablet 10 mg PO DAILY 09/12/24 11/23/24 History (Singulair) omeprazole 20 mg capsule,delayed 20 mg PO DAILY 09/12/24 11/23/24 History release atorvastatin 40 mg tablet 40 mg PO DAILY 09/16/24 11/23/24 History miconazole nitrate 2 % topical 1 applic topical BID 09/16/24 11/23/24 History powder (Antifungal (miconazole)) miconazole nitrate 2 % topical 1 applic topical UD PRN skin 09/16/24 11/23/24 History powder (Antifungal (miconazole)) breakdown potassium chloride 20 mEq 20 meq PO QAM 09/16/24 11/23/24 History tablet,extended release aspirin 81 mg tablet 81 mg PO DAILY #30 tabs 09/23/24 11/23/24 Rx divalproex 250 mg tablet,extended 250 mg PO HS #30 tabs 09/23/24 11/23/24 Rx release 24 hr divalproex 500 mg tablet,delayed 500 mg PO QAM #30 tabs 09/23/24 11/23/24 Rx release Past Med/Surg History Problem List (Updated 11/24/24 @ 02:11 by Sandra Banuelos) Urinary tract infection (Acute) Hyponatremia Fall Ambulatory dysfunction SDH (subdural hematoma) (Acute) Hypomagnesemia (Acute) Acute hyponatremia (Acute) Elevated lactic acid level (Acute) Acute confusion (Acute) Dehydration Delirium Generalized weakness (Acute) Type 2 diabetes mellitus (Chronic) Hypothyroidism (Chronic) Hyperlipidemia (Chronic) B12 deficiency (Chronic) Medical History Acute encephalopathy Allergic rhinitis Chronic sinusitis Acute hyponatremia Acute confusion Fecal incontinence Recurrent herpes labialis Weakness Generalized weakness Diarrhea Esophageal reflux Seizure disorder Hypomagnesemia Vitamin D deficiency History of CVA (cerebrovascular accident) lacunar infarct 09/2020>STILL HAS NUMBNESS IN RT HAND AND RT SIDE OF FACE Multiple pulmonary nodules stable on imaging - no further workup required Hx of brain cancer Right temporal glioma, s/p surgery, 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 Surgical History History of cataract surgery right Hx of colonoscopy Hx of tubal ligation Hx of section Hx of brain surgery 2000-[facility] Family History Grandmother Family history of diabetes mellitus Father Myocardial infarction Other No significant family history Denies family history of Ovarian cancer Prostate cancer Breast cancer Colorectal cancer Social History Smoking Status: Never smoker Tobacco Type: Smokeless Tobacco (Dip or Chew) Second Hand Exposure: No; Do You Dip or Chew Tobacco: No; Hx Alcohol Use: No Hx Substance Use: No Preferred Language: Swiss Communication Ability: Effective Communication Ability Comment: TROUBLE HEARING OUT OF RIGHT SIDE Side Panel Padder Required: No Beliefs That Will Affect Care: None marital status: Current Living Situation: Personal Care Facility current occupational status: employed 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 Childhood Exposure to Second-Hand Smoke: Yes Diet: regular caffeine: Yes (diet soda) Dental Care, Regularly: No Physical Activity Frequency: Does not Exercise Seatbelt Use: always Sunscreen Use: Yes Assistive Devices: Cane and Stair Lift Review of Systems Review of Systems: Per HPI. Physical Exam Physical Exam: General: Alert, no acute distress, comfortable appearing and pleasant but confused HEENT: Normocephalic, Cardio: Regular rate and rhythm, Resp: Lungs clear to auscultation b/l, no wheezes or rhonchi, GI: Soft, nondistended, bowel sounds active, grimace to palpation over the bladder noted Skin: Warm, pink, dry, Results & Data Results & Data Vital Signs (Past 12 Hours) Vital Signs Temp Pulse Pulse Resp BP BP Pulse Ox 11/23/24 23:45 67 23 11/23/24 23:30 116/66 11/23/24 23:30 116/66 11/23/24 23:21 71 28 H 11/23/24 23:15 70 22 11/23/24 23:00 70 22 107/58 L 93 11/23/24 22:51 65 19 110/62 93 11/23/24 22:45 66 17 96 11/23/24 22:30 66 19 95 11/23/24 22:30 110/62 11/23/24 22:18 67 11/23/24 22:00 64 20 114/62 94 11/23/24 21:33 64 18 97 11/23/24 21:30 118/71 11/23/24 21:30 118/71 11/23/24 21:30 118/71 11/23/24 21:24 67 22 74 L 11/23/24 21:21 70 19 61 L 11/23/24 21:15 68 26 H 11/23/24 21:15 111/70 11/23/24 21:15 111/70 11/23/24 21:15 111/70 11/23/24 21:06 63 22 100 11/23/24 20:51 66 22 96 11/23/24 20:42 68 15 126/85 94 11/23/24 20:35 66 20 94 11/23/24 20:16 36.6 C 82 16 111/71 98 O2 Del Method 11/23/24 23:45 11/23/24 23:30 11/23/24 23:30 11/23/24 23:21 11/23/24 23:15 11/23/24 23:00 11/23/24 22:51 11/23/24 22:45 11/23/24 22:30 11/23/24 22:30 11/23/24 22:18 11/23/24 22:00 Room Air 11/23/24 21:33 11/23/24 21:30 11/23/24 21:30 11/23/24 21:30 11/23/24 21:24 11/23/24 21:21 11/23/24 21:15 11/23/24 21:15 11/23/24 21:15 11/23/24 21:15 11/23/24 21:06 11/23/24 20:51 11/23/24 20:42 11/23/24 20:35 Room Air 11/23/24 20:16 Room Air Resident Activity Tracking Resident Involvement: Resident Care Provided Care Provided: Adult Hospital Medicine
[2024-11-23] MEDS: SODIUM CHLORIDE 0.9% 1,000 ML IV SCH (23:55)
--- NOTE | 2024-11-24 00:14 | Emergency Department Note ---
History of Present Illness General Chief complaint: Urinary Symptoms Stated complaint: UTI, CONFUSION, WEAKNESS Time Seen by Provider: 11/23/24 20:33 Source: family ([id number] at bedside) History of Present Illness Provider complaint: Confusion weakness Six 4-year-old female presents emergency department for confusion and weakness. [id number] states she thinks that the patient has a UTI. Patient's symptoms began today. [id number] reports that the patient was very weak and fell today but did not hit her head. Patient is not reporting any pain. Gdtbbldg-re-mio also states that the patient is very upset because her recently and the is tomorrow. Home Medications Medication Instructions Recorded Confirmed Type acetaminophen 325 mg tablet 650 mg PO Q6 PRN Fever Or Pain 01/19/23 11/23/24 History (Tylenol) levothyroxine 50 mcg tablet 50 mcg PO DAILY #90 tabs 03/30/24 11/23/24 Rx docusate sodium 100 mg capsule 100 mg PO BID #60 caps 09/09/24 11/23/24 Rx polyethylene glycol 3350 17 gram 17 g PO DAILY #30 ea 09/09/24 11/23/24 Rx oral powder packet (Miralax) montelukast 10 mg tablet 10 mg PO DAILY 09/12/24 11/23/24 History (Singulair) omeprazole 20 mg capsule,delayed 20 mg PO DAILY 09/12/24 11/23/24 History release atorvastatin 40 mg tablet 40 mg PO DAILY 09/16/24 11/23/24 History miconazole nitrate 2 % topical 1 applic topical BID 09/16/24 11/23/24 History powder (Antifungal (miconazole)) miconazole nitrate 2 % topical 1 applic topical UD PRN skin 09/16/24 11/23/24 History powder (Antifungal (miconazole)) breakdown potassium chloride 20 mEq 20 meq PO QAM 09/16/24 11/23/24 History tablet,extended release aspirin 81 mg tablet 81 mg PO DAILY #30 tabs 09/23/24 11/23/24 Rx divalproex 250 mg tablet,extended 250 mg PO HS #30 tabs 09/23/24 11/23/24 Rx release 24 hr divalproex 500 mg tablet,delayed 500 mg PO QAM #30 tabs 09/23/24 11/23/24 Rx release Allergies Allergy/AdvReac Type Severity Reaction Status Date / Time Sulfa (Sulfonamide Allergy Intermediate ITCHING, Verified 10/11/24 20:28 Antibiotics) BURNING Past Med/Surg History Problem List (Updated 11/24/24 @ 00:21 by Rodney Barba MD) Urinary tract infection (Acute) Hyponatremia Fall Ambulatory dysfunction SDH (subdural hematoma) (Acute) Hypomagnesemia (Acute) Acute hyponatremia (Acute) Elevated lactic acid level (Acute) Acute confusion (Acute) Dehydration Delirium Generalized weakness (Acute) Type 2 diabetes mellitus (Chronic) Hypothyroidism (Chronic) Hyperlipidemia (Chronic) B12 deficiency (Chronic) Medical History Acute encephalopathy Allergic rhinitis Chronic sinusitis Acute hyponatremia Acute confusion Fecal incontinence Recurrent herpes labialis Weakness Generalized weakness Diarrhea Esophageal reflux Seizure disorder Hypomagnesemia Vitamin D deficiency History of CVA (cerebrovascular accident) lacunar infarct 09/2020>STILL HAS NUMBNESS IN RT HAND AND RT SIDE OF FACE Multiple pulmonary nodules stable on imaging - no further workup required Hx of brain cancer Right temporal glioma, s/p surgery, 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 Surgical History History of cataract surgery right Hx of colonoscopy Hx of tubal ligation Hx of section Hx of brain surgery [id number]-[id number] Family History Grandmother Family history of diabetes mellitus Father Myocardial infarction Other No significant family history Denies family history of Ovarian cancer Prostate cancer Breast cancer Colorectal cancer Social History Smoking Status: Never smoker Tobacco Type: Smokeless Tobacco (Dip or Chew) Second Hand Exposure: No; Do You Dip or Chew Tobacco: No; Hx Alcohol Use: No Hx Substance Use: No Preferred Language: French Communication Ability: Effective Communication Ability Comment: TROUBLE HEARING OUT OF RIGHT SIDE Process Owner Required: No Beliefs That Will Affect Care: None marital status: Current Living Situation: Personal Care Facility current occupational status: employed 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 Childhood Exposure to Second-Hand Smoke: Yes Diet: regular caffeine: Yes (diet soda) Dental Care, Regularly: No Physical Activity Frequency: Does not Exercise Seatbelt Use: always Sunscreen Use: Yes Assistive Devices: Cane and Stair Lift Physical Exam Vital Signs Vital Signs - 24 hr 11/23/24 20:16 11/23/24 20:35 11/23/24 20:42 Temperature 36.6 C Temperature Source Temporal Artery Scan Pulse Rate 82 66 68 Pulse Rate [Left] Pulse Rate from SpO2 Sensor Respiratory Rate 16 20 15 Respiratory Effort / Characteristics Non-Labored Respiratory Depth Normal Blood Pressure 111/71 126/85 Blood Pressure [Left Arm] Blood Pressure Mean 84 98 Blood Pressure Mean [Left Arm] Pulse Oximetry 98 94 94 Oxygen Delivery Method Room Air Room Air Sepsis Recent Fever Within 48 Hours No Sepsis New/Unexplained Change in Mental Status No Sepsis Action Taken by Nursing No Action Required 11/23/24 20:51 11/23/24 21:06 11/23/24 21:15 Temperature Temperature Source Pulse Rate 66 63 Pulse Rate [Left] Pulse Rate from SpO2 Sensor 65 63 Respiratory Rate 22 22 Respiratory Effort / Characteristics Respiratory Depth Blood Pressure 111/70 Blood Pressure [Left Arm] Blood Pressure Mean 94 Blood Pressure Mean [Left Arm] Pulse Oximetry 96 100 Oxygen Delivery Method Sepsis Recent Fever Within 48 Hours Sepsis New/Unexplained Change in Mental Status Sepsis Action Taken by Nursing 11/23/24 21:15 11/23/24 21:15 11/23/24 21:15 Temperature Temperature Source Pulse Rate 68 Pulse Rate [Left] Pulse Rate from SpO2 Sensor Respiratory Rate 26 H Respiratory Effort / Characteristics Respiratory Depth Blood Pressure 111/70 111/70 Blood Pressure [Left Arm] Blood Pressure Mean 94 94 Blood Pressure Mean [Left Arm] Pulse Oximetry Oxygen Delivery Method Sepsis Recent Fever Within 48 Hours Sepsis New/Unexplained Change in Mental Status Sepsis Action Taken by Nursing 11/23/24 21:21 11/23/24 21:24 11/23/24 21:30 Temperature Temperature Source Pulse Rate 70 67 Pulse Rate [Left] Pulse Rate from SpO2 Sensor 70 79 Respiratory Rate 19 22 Respiratory Effort / Characteristics Respiratory Depth Blood Pressure 118/71 Blood Pressure [Left Arm] Blood Pressure Mean 91 Blood Pressure Mean [Left Arm] Pulse Oximetry 61 L 74 L Oxygen Delivery Method Sepsis Recent Fever Within 48 Hours Sepsis New/Unexplained Change in Mental Status Sepsis Action Taken by Nursing 11/23/24 21:30 11/23/24 21:30 11/23/24 21:33 Temperature Temperature Source Pulse Rate 64 Pulse Rate [Left] Pulse Rate from SpO2 Sensor 64 Respiratory Rate 18 Respiratory Effort / Characteristics Respiratory Depth Blood Pressure 118/71 118/71 Blood Pressure [Left Arm] Blood Pressure Mean 91 91 Blood Pressure Mean [Left Arm] Pulse Oximetry 97 Oxygen Delivery Method Sepsis Recent Fever Within 48 Hours Sepsis New/Unexplained Change in Mental Status Sepsis Action Taken by Nursing 11/23/24 22:00 11/23/24 22:18 11/23/24 22:30 Temperature Temperature Source Pulse Rate 67 Pulse Rate [Left] 64 Pulse Rate from SpO2 Sensor Respiratory Rate 20 Respiratory Effort / Characteristics Respiratory Depth Blood Pressure 110/62 Blood Pressure [Left Arm] 114/62 Blood Pressure Mean 92 Blood Pressure Mean [Left Arm] 79 Pulse Oximetry 94 Oxygen Delivery Method Room Air Sepsis Recent Fever Within 48 Hours Sepsis New/Unexplained Change in Mental Status Sepsis Action Taken by Nursing 11/23/24 22:30 11/23/24 22:45 11/23/24 22:51 Temperature Temperature Source Pulse Rate 66 66 65 Pulse Rate [Left] Pulse Rate from SpO2 Sensor 66 66 65 Respiratory Rate 19 17 19 Respiratory Effort / Characteristics Respiratory Depth Blood Pressure 110/62 Blood Pressure [Left Arm] Blood Pressure Mean 78 Blood Pressure Mean [Left Arm] Pulse Oximetry 95 96 93 Oxygen Delivery Method Sepsis Recent Fever Within 48 Hours Sepsis New/Unexplained Change in Mental Status Sepsis Action Taken by Nursing 11/23/24 23:00 11/23/24 23:15 11/23/24 23:21 Temperature Temperature Source Pulse Rate 70 70 71 Pulse Rate [Left] Pulse Rate from SpO2 Sensor Respiratory Rate 22 22 28 H Respiratory Effort / Characteristics Respiratory Depth Blood Pressure 107/58 L Blood Pressure [Left Arm] Blood Pressure Mean 75 Blood Pressure Mean [Left Arm] Pulse Oximetry 93 Oxygen Delivery Method Sepsis Recent Fever Within 48 Hours Sepsis New/Unexplained Change in Mental Status Sepsis Action Taken by Nursing 11/23/24 23:30 11/23/24 23:30 11/23/24 23:45 Temperature Temperature Source Pulse Rate 67 Pulse Rate [Left] Pulse Rate from SpO2 Sensor Respiratory Rate 23 Respiratory Effort / Characteristics Respiratory Depth Blood Pressure 116/66 116/66 Blood Pressure [Left Arm] Blood Pressure Mean 90 90 Blood Pressure Mean [Left Arm] Pulse Oximetry Oxygen Delivery Method Sepsis Recent Fever Within 48 Hours Sepsis New/Unexplained Change in Mental Status Sepsis Action Taken by Nursing Physical Exam GENERAL: oriented to person, place, and time. appears well-developed and well- nourished. HENT: Exam performed. - Head: Normocephalic and atraumatic. EYES: Conjunctivae and EOM are normal. Right eye exhibits no discharge. Left eye exhibits no discharge. No scleral icterus. NECK: Normal range of motion. Neck supple. No JVD present. CV: Normal rate, regular rhythm, normal heart sounds and intact distal pulses. There is no peripheral edema. Palpable radial pulses bue. PULM/CHEST: Effort normal and breath sounds normal. No respiratory distress. No stridor. no wheezes. no rales. ABD: The abdomen is soft. There is no tenderness. NEURO: Motor and sensation grossly intact. SKIN: Skin is warm and dry. He is not diaphoretic. PSYCH: Flat affect. Course Course 2032: The patient was evaluated in room B10. A complete history and physical exam was performed Cardiac monitoring: An order was placed for continuous cardiac monitoring. The monitor shows a rate of 70 with sinus rhythm interpreted by md 2300: Vital signs stable. CT of the head is unremarkable. Labs are significant for sodium of 124. Patient is had no seizure-like activity no need for hypertonic saline. Gentle hydration with normal saline started. Patient will be admitted to the [facility] Hospitalist team. 0019: Patient's urinalysis concerning for UTI. Rocephin ordered for the patient. Administered Medications Sodium Chloride (Nss) 1,000 mls @ 125 mls/hr IV .Q8H CHICHI Stop: 11/26/24 23:14 Last Admin: 11/23/24 23:55 Dose: 125 mls/hr Documented By: BECKA Medical Decision Making Laboratory Data Attestation: I reviewed the patient's lab results. 11/23/24 20:32 11/23/24 20:32 Lab Results 11/23/24 11/23/24 11/23/24 Range/Units 20:32 20:41 21:03 WBC 7.94 (4.8-10.8) K/ul RBC 4.13 L (4.20-5.40) M/uL Hgb 13.1 (12.0-16.0) g/dl Hct 35.8 L (37.0-47.0) % MCV 86.7 (80.0-100.0) fL MCH 31.7 (25.0-34.0) pg MCHC 36.6 H (32.0-36.0) g/dL RDW Std Deviation 41.2 (36.4-46.3) fL RDW Coeff of Juliet 13.1 (11.5-14.5) % Plt Count 128 L (130-400) K/uL MPV 9.6 (9.4-12.4) fL Immature Gran % (Auto) 0.3 % Neut % (Auto) 73.8 % Lymph % (Auto) 12.7 % Hart % (Auto) 13.1 % Eos % (Auto) 0.0 % Baso % (Auto) 0.1 % Neut # (Auto) 5.86 (1.40-6.50) K/uL Lymph # (Auto) 1.01 L (1.20-3.40) K/uL Hart # (Auto) 1.04 H (0.11-0.59) K/uL Eos # (Auto) 0.00 (0.00-0.50) K/uL Baso # (Auto) 0.01 (0.00-0.20) K/uL Immature Gran # (Auto) 0.02 (0.01-0.20) K/uL PT 11.2 (9.0-12.0) Seconds INR 1.0 (0.9-1.1) APTT 30 (21-31) Seconds PTT Ratio 1.1 VBG pH 7.39 (7.36-7.41) VBG pCO2 45 (38-50) mmHg VBG pO2 < 20 mmHg VBG HCO3 27 mmol/L VBG O2 Saturation < 60.0 % VBG Base Excess 1.7 mEq/L Sodium 124 L (136-145) mmol/L Potassium 4.2 (3.5-5.1) mmol/L Chloride 91 L (98-107) mmol/L Carbon Dioxide 27 (21-32) mmol/L Anion Gap 6 (3-11) BUN 6 (6-23) mg/dl Creatinine 0.65 (0.6-1.2) mg/dl Est Cr Clr Drug Dosing Not Reportable eGFR 97.04 BUN/Creatinine Ratio 9.2 L (10-20) Glucose 129 H (70-99(Fasting)) mg/dl Lactate 1.8 (0.4-2.0) mmol/L Calcium 10.1 (8.6-10.3) mg/dl Magnesium 1.7 (1.7-2.4) mg/dl Total Bilirubin 0.9 (0.2-1.0) mg/dl Direct Bilirubin 0.2 (0-0.2) mg/dl AST 18 (13-39) U/L ALT 19 (7-52) U/L Alkaline Phosphatase 55 (34-104) U/L Ammonia 23.0 (18-72) umol/L Troponin I High Sens 2.3 (0-14) pg/ml Total Protein 7.7 (6.0-8.3) gm/dl Albumin 4.2 (3.4-5.0) gm/dl Procalcitonin 0.09 (0-0.5) ng/ml Urine Color Urine Appearance (Clear) Urine pH (4.5-7.5) Ur Specific Lena (1.000-1.030) Urine Protein (Negative) Urine Glucose (UA) (Negative) Urine Ketones (Negative) Urine Blood (Negative) Urine Nitrite (Negative) Urine Bilirubin (Negative) Urine Urobilinogen (Negative) Ur Leukocyte Esterase (Negative) Urine WBC (Auto) (0-5) /hpf Urine RBC (Auto) (0-2) /hpf U Hyaline Cast (Auto) (0-2) /lpf U Epithel Cells (Auto) (0-2) /hpf Urine Bacteria (Auto) (None Seen) Urine Comment 11/23/24 Range/Units 23:10 WBC (4.8-10.8) K/ul RBC (4.20-5.40) M/uL Hgb (12.0-16.0) g/dl Hct (37.0-47.0) % MCV (80.0-100.0) fL MCH (25.0-34.0) pg MCHC (32.0-36.0) g/dL RDW Std Deviation (36.4-46.3) fL RDW Coeff of Juliet (11.5-14.5) % Plt Count (130-400) K/uL MPV (9.4-12.4) fL Immature Gran % (Auto) % Neut % (Auto) % Lymph % (Auto) % Hart % (Auto) % Eos % (Auto) % Baso % (Auto) % Neut # (Auto) (1.40-6.50) K/uL Lymph # (Auto) (1.20-3.40) K/uL Hart # (Auto) (0.11-0.59) K/uL Eos # (Auto) (0.00-0.50) K/uL Baso # (Auto) (0.00-0.20) K/uL Immature Gran # (Auto) (0.01-0.20) K/uL PT (9.0-12.0) Seconds INR (0.9-1.1) APTT (21-31) Seconds PTT Ratio VBG pH (7.36-7.41) VBG pCO2 (38-50) mmHg VBG pO2 mmHg VBG HCO3 mmol/L VBG O2 Saturation % VBG Base Excess mEq/L Sodium (136-145) mmol/L Potassium (3.5-5.1) mmol/L Chloride (98-107) mmol/L Carbon Dioxide (21-32) mmol/L Anion Gap (3-11) BUN (6-23) mg/dl Creatinine (0.6-1.2) mg/dl Est Cr Clr Drug Dosing eGFR BUN/Creatinine Ratio (10-20) Glucose (70-99(Fasting)) mg/dl Lactate (0.4-2.0) mmol/L Calcium (8.6-10.3) mg/dl Magnesium (1.7-2.4) mg/dl Total Bilirubin (0.2-1.0) mg/dl Direct Bilirubin (0-0.2) mg/dl AST (13-39) U/L ALT (7-52) U/L Alkaline Phosphatase (34-104) U/L Ammonia (18-72) umol/L Troponin I High Sens (0-14) pg/ml Total Protein (6.0-8.3) gm/dl Albumin (3.4-5.0) gm/dl Procalcitonin (0-0.5) ng/ml Urine Color Yellow Urine Appearance Clear (Clear) Urine pH 6.5 (4.5-7.5) Ur Specific Lena 1.006 (1.000-1.030) Urine Protein Negative (Negative) Urine Glucose (UA) Negative (Negative) Urine Ketones Trace H (Negative) Urine Blood Negative (Negative) Urine Nitrite Positive A (Negative) Urine Bilirubin Negative (Negative) Urine Urobilinogen Negative (Negative) Ur Leukocyte Esterase 3+ H (Negative) Urine WBC (Auto) 21-50 H (0-5) /hpf Urine RBC (Auto) 0-2 (0-2) /hpf U Hyaline Cast (Auto) 0-2 (0-2) /lpf U Epithel Cells (Auto) 0-2 (0-2) /hpf Urine Bacteria (Auto) 3+ H (None Seen) Urine Comment Imaging Data Radiologist's Impression: Head CT 11/23/24 20:34 Exam(s): CT HEAD Without Contrast EXAM: CT Head Without Intravenous Contrast CLINICAL HISTORY: Reason for exam: ams. TECHNIQUE: Axial computed tomography images of the head/brain without intravenous contrast. CTDI is 5 38.31 mGy and DLP is 625.8 mGy-cm. Automated exposure control was utilized for the study. A dose lowering technique was utilized adhering to the principles of ALARA. COMPARISON: 10/18/2024 FINDINGS: Artifacts: Images are degraded by motion artifact. Brain: No intracranial hemorrhage, mass-effect, or cerebral edema. Atrophy and chronic microvascular ischemic changes. Calcifications in the brainstem. Encephalomalacia in the right temporal lobe. In the. Ventricles: Unremarkable. Bones/joints: Postsurgical changes in the right skull. Soft tissues: Unremarkable. Sinuses: No acute sinusitis. Mastoid air cells: Partial right mastoid effusion. IMPRESSION: 1. No acute intracranial abnormality. Electronically signed by: Mauricio Woodall MD 11/23/24 23:00 PM Chest X-Ray 11/23/24 20:35 Exam(s): XR CXR 1 VIEW EXAM: XR Chest, 1 View CLINICAL HISTORY: Sepsis. TECHNIQUE: Frontal view of the chest. COMPARISON: 10/11/2024. FINDINGS: Heart is mildly enlarged. Hypoventilation with bibasilar atelectasis. No CHF. No definite focal infiltrate. No pleural effusion or pneumothorax. Bones are unchanged. IMPRESSION: Hypoventilation with bibasilar atelectasis. Otherwise no change. Electronically signed by: Jian Cross M.D. 11/23/24 23:19 PM ECG Data Attestation: I personally reviewed and interpreted this ECG as follows: Rate (beats per minute): 67 Rhythm: + normal sinus ECG Intervals/blocks: + Normal NE and + Normal QT-c ECG ST segments: + Normal ST segments Additional Comments: QRS 70. Baseline artifact and wander. [facility] Narrative 2032: The patient was evaluated in room B10. A complete history and physical exam was performed Cardiac monitoring: An order was placed for continuous cardiac monitoring. The monitor shows a rate of 70 with sinus rhythm interpreted by me 2300: Vital signs stable. CT of the head is unremarkable. Labs are significant for sodium of 124. Patient is had no seizure-like activity no need for hypertonic saline. Gentle hydration with normal saline started. Patient will be admitted to the [facility] hospitalist team. 0019: Patient's urinalysis concerning for UTI. Rocephin ordered for the patient. Impression & Plan Acute hyponatremia, Urinary tract infection Discharge Plan Visit Data Chief Complaint: Urinary Symptoms Stated Complaint: UTI, CONFUSION, WEAKNESS ED Provider: Rodney Barba Discharge Problem: Acute hyponatremia, Urinary tract infection Patient Disposition: Admitted As Inpatient Condition: Fair Forms Stand Alone Forms: My [facility] Prescriptions Prescriptions: No Action levothyroxine 50 mcg tablet 50 mcg PO DAILY Qty: 90 3RF acetaminophen [Tylenol] 325 mg Tablet 650 mg PO Q6 PRN (Reason: Fever Or Pain) atorvastatin 40 mg tablet 40 mg PO DAILY potassium chloride 20 mEq tablet extended release 20 meq PO QAM miconazole nitrate [Antifungal (miconazole)] 2 % Powder 1 applic TOPICAL BID Rx Instructions: apply to all folds twice daily for skin breakdown...apply pillow cases under breasts and under belly folds after applying powder to absorb moisture miconazole nitrate [Antifungal (miconazole)] 2 % Powder 1 applic TOPICAL UD PRN (Reason: skin breakdown) Rx Instructions: apply as needed under all folds and apply pillow cases under breasts and under belly folds after applying powder to absorb moisture divalproex 500 mg Tablet,Delayed Release (Dr/Ec) 500 mg PO QAM Qty: 30 0RF divalproex 250 mg Tablet Extended Release 24 Hr 250 mg PO HS Qty: 30 0RF aspirin 81 mg tablet 81 mg PO DAILY Qty: 30 0RF omeprazole 20 mg capsule,delayed release(DR/EC) 20 mg PO DAILY montelukast [Singulair] 10 mg tablet 10 mg PO DAILY polyethylene glycol 3350 [Miralax] 17 gram Powder In Packet 17 g PO DAILY Qty: 30 0RF docusate sodium 100 mg Capsule 100 mg PO BID Qty: 60 0RF Referrals Referrals: Aleshia Morton MD [Primary Care Provider] -
[2024-11-24] MEDS: cefTRIAXone SODIUM 2,000 MG/50 ML BAG IV STA (00:35)
[2024-11-24] MEDS ORDERED: ACETAMINOPHEN 325 MG TAB PO PRN (02:20)
[2024-11-24] MEDS ORDERED: MELATONIN 3 MG TAB PO PRN (02:20)
[2024-11-24 02:24] VITALS: O2SAT 98
[2024-11-24] MEDS: DIVALPROEX EXTENDED RELEASE 250 MG TABCR PO SCH (04:05)
[2024-11-24] MEDS: LEVOTHYROXINE SODIUM 50 MCG TABLET PO SCH (05:27)
--- NOTE | 2024-11-24 07:39 | Billing Data ---
Date of Service November 24, 2024 Coding Level of Care Code 20290 INT INP/OBS CARE
[2024-11-24 07:54] VITALS: PULSE 69; RESP 16; TEMP 98.1
[2024-11-24 07:56] LABS: Anion Gap 7.0 (3-11); Calcium 9.0 mg/dl (8.6-10.3); Carbon Dioxide 22.0 mmol/L (21-32); Chloride 99.0 mmol/L (98-107); Potassium 4.7 mmol/L (3.5-5.1); Sodium 128.0 mmol/L (136-145)
[2024-11-24 08:01] LABS: Blood Urea Nitrogen 6.0 mg/dl (6-23); Creatinine Clr Calc Pharmacy 94.4 ml/min; Glucose 105.0 mg/dl (70-99(Fasting))
[2024-11-24] MEDS: MONTELUKAST SODIUM 10 MG TABLET PO SCH (08:33)
[2024-11-24] MEDS: ASPIRIN 81 MG ECTAB PO SCH (08:33)
[2024-11-24] MEDS: DIVALPROEX DELAY RELEASE 500 MG TAB PO SCH (08:34)
[2024-11-24] MEDS: POTASSIUM CHLORIDE CRTAB 20 MEQ TABCR PO SCH (08:35)
[2024-11-24] MEDS: POLYETHYLENE (MIRALAX) 17 GM PACK PO SCH (08:35)
[2024-11-24 08:55] LABS: Hematocrit (blood only) 32.9 % (37.0-47.0); Hemoglobin 11.9 g/dl (12.0-16.0); Immature Granulocytes # (auto) 0.03 K/uL (0.01-0.20); Immature Granulocytes % (auto) 0.6 %; Mean Corpuscular Hemoglobin 32.6 pg (25.0-34.0); Mean Corpuscular Volume 90.1 fL (80.0-100.0); Ovalocytes 1+; Platelet Count 81 K/uL (130-400); Polychromasia 1+; RDW Standard Deviation 43.4 fL (36.4-46.3); Red Blood Count 3.65 M/uL (4.20-5.40); White Blood Count 5.21 K/ul (4.8-10.8)
[2024-11-24] MEDS: NITROFURANTOIN MONOHYDRATE 100 MG CAP PO STA (10:35)
--- NOTE | 2024-11-24 10:48 | Discharge Summary ---
Discharge Summary Date of Service November 24, 2024 Principal Dx & Hospital Course #1 = Principal Diagnosis (1) Acute confusion: (2) Hypothyroidism: (3) Urinary tract infection: (4) Hyponatremia: Plan #Confusion | AMS | Hyponatremia | UTI Pt is a 64 yo female with a past med hx of CVA, brain cancer s/p resection in 2000 with reported baseline confusion at times since, hx seizures, chronic hyponatremia, hypothyroidism, HLD, GERD, and subdural hematoma after a fall 10/04 who presents to the hospital on 11/23 with family for 1 day worsening confusion and urinary frequency. Found to have UA concerning for infection, but also Na 124. - CT head; no acute process, no intracranial bleed noted, does have prior hx of subdural after a fall in September but this is not commented on on this report . With IVFs, Na has improved to 128 which is near her baseline. Family is unsure if she has been drinking large amounts of free water at home. Patient received one dose of ceftriaxone (but with hx of ESBL ecoli). UC pending at time of discharge. On exam, patient mentation is improved. I spoke to sonFredo who is requested Ashley be discharged to be able to attend her 's services. Given unclear if confusion was caused by hyponatremia or UTI - will continue on course of Macrobid and instructed Fredo to limit free water intake and to mix in electrolyte drinks. At this time, family does not have a plan who will be staying with Ashley, but are working on it but would like her to attend services - which I feel is reasonable. Ambulatory CM Olivia aware of pt admission and discharge. #Hx seizures - continue home seizure meds, valproic acid level WNL #Hypothyroidism - - continue home medication Dispo: discharge to home with family today Fredo updated via phone 11/24 Admission HPI Per Admitting Provider Pt is a 64 yo female with a past med hx of CVA, brain cancer s/p resection in 2000 with reported baseline confusion at times since, hx seizures, chronic hyponatremia, hypothyroidism, HLD, GERD, and subdural hematoma after a fall 10/04 who presents to the hospital on 11/23 with family for 1 day worsening confusion and urinary frequency. Pt seen at bedside, laying comfortably in bed. Daughter is present and gives hx due to pt's confusion. According to daughter, pt's recently and rather suddenly who was the person she was living with. Daughter states over the last day or two she noticed that the pt was more confused, slow to respond, answering most questions as yes/no only. Daughter states this is very run of the mill for how she acts when she gets a UTI, which she has had before, and noted pt was urinating frequently. Otherwise, daughter states she is in her normal state of health; no nausea or vomiting. Daughter states that contact for this patient is pts son Fredo, who lives close to the pt. Family is going to have service for pts tomorrow/Thursday and is hoping pt will be better by then for discharge. Daughter notes chronic hyponatremia and pt does not take salt pills, was advised by doctors to generously salt her food. Daughter reports she thinks patient is compliant with her medications but Fredo has been the main one to help her out. Pt had been living with only until he passed very recently. Evaluated pt, who is very unreliable, essentially only responds with yes/no questions. When I asked her what the year was she said "yeah". She did, however, ask in clarity for a cup of water with no ice because she was thirsty, but when asked if she had abdominal pain when palpated with visual grimace, she replied "no" and did not elaborate. I asked pt if she had been drinking a lot of water recently and she responded "yeah". Pt denies chest pain, SOB, dysuria, nausea, or vomiting. Family is trying to coordinate plans for her. May be able to live with Fredo as he has a bathroom on the first floor but unsure at this time. Discharge Exam General: NAD, VS as above Resp: normal respiratory effort, lungs clear to auscultation CV: RRR, no murmur, Abd: normal bowel sounds, non tender, no hepatosplenomegaly Extremities: Moves all extremities, no edema Neuro: A&O x3, Skin: intact, no lesions noted Discharge Plan Discharge Items Patient Disposition: Home - Self-Care Reason For Visit: CONFUSION,HYPONATREMIA Discharge Diagnosis: possible UTI, hyponatremia Condition on Discharge: Fair Activity: Resume your previous activity Non-emergency contact: Primary Care Provider Call non-emergency contact if: you have any medication questions, your symptoms worsen and your temperature is above 101 Follow-up/Referrals: Aleshia Morton MD [Primary Care Provider] - (follow up within one week ) Diet: Regular Fluids: 1800ml (7 cups) Addtl Attending Provider Instructions: Ms. Chanel, You were hospitalized after having worsening confusion at home. This was concerned to be from either from a urinary tract infection or low sodium. You will be continued on oral antibiotics to treat the possible infection. For your low sodium - it is important that you are not drinking too much plain water. Mixing in gatorade, propel, or other drinks with electrolytes will be helpful. In total, should have no more than 1800 mL of plain water a day. Please take the full course of antibiotics even if you start to feel better. I have notified the ambulatory case management coordinator, Olivia, about your recent life changes. Take care! No changes to home meds. Pending Studies at Discharge: Yes (urine culture, blood culture ) Stand-Alone Forms: My [facility] [employer], Smoking Cessation Medications and DC Order Prescriptions: New nitrofurantoin monohyd/m-cryst [Macrobid] 100 mg capsule 100 mg PO BID 5 Days Qty: 10 0RF Rx Instructions: must administer with a meal/food Continued levothyroxine 50 mcg tablet 50 mcg PO DAILY Qty: 90 3RF acetaminophen [Tylenol] 325 mg Tablet 650 mg PO Q6 PRN (Reason: Fever Or Pain) atorvastatin 40 mg tablet 40 mg PO DAILY potassium chloride 20 mEq tablet extended release 20 meq PO QAM miconazole nitrate [Antifungal (miconazole)] 2 % Powder 1 applic TOPICAL BID Rx Instructions: apply to all folds twice daily for skin breakdown...apply pillow cases under breasts and under belly folds after applying powder to absorb moisture miconazole nitrate [Antifungal (miconazole)] 2 % Powder 1 applic TOPICAL UD PRN (Reason: skin breakdown) Rx Instructions: apply as needed under all folds and apply pillow cases under breasts and under belly folds after applying powder to absorb moisture divalproex 500 mg Tablet,Delayed Release (Dr/Ec) 500 mg PO QAM Qty: 30 0RF divalproex 250 mg Tablet Extended Release 24 Hr 250 mg PO HS Qty: 30 0RF aspirin 81 mg tablet 81 mg PO DAILY Qty: 30 0RF omeprazole 20 mg capsule,delayed release(DR/EC) 20 mg PO DAILY montelukast [Singulair] 10 mg tablet 10 mg PO DAILY polyethylene glycol 3350 [Miralax] 17 gram Powder In Packet 17 g PO DAILY Qty: 30 0RF docusate sodium 100 mg Capsule 100 mg PO BID Qty: 60 0RF Discharge Orders: Discharge Order (Routine); Ordered 11/24/24 Ordered By: Saadia Justin Admission Data Admit Date/Time: 11/24/24 00:39 Attending Provider: Mira Hall Admit Provider: Olivia Song Primary Care Provider: Aleshia Morton Other Providers: Clifton Stovall Other Interventions: Discharge Summary Assessment (RN) Last Done: 11/24/24 11:10 Hospital Stay Data Consultations 11/23/24 23:08 ED Decision to Admit Stat Diagnostic Imagining Performed Head CT 11/23/24 20:34 Exam(s): CT HEAD Without Contrast EXAM: CT Head Without Intravenous Contrast CLINICAL HISTORY: Reason for exam: ams. TECHNIQUE: Axial computed tomography images of the head/brain without intravenous contrast. CTDI is 5 38.31 mGy and DLP is 625.8 mGy-cm. Automated exposure control was utilized for the study. A dose lowering technique was utilized adhering to the principles of ALARA. COMPARISON: 10/18/2024 FINDINGS: Artifacts: Images are degraded by motion artifact. Brain: No intracranial hemorrhage, mass-effect, or cerebral edema. Atrophy and chronic microvascular ischemic changes. Calcifications in the brainstem. Encephalomalacia in the right temporal lobe. In the. Ventricles: Unremarkable. Bones/joints: Postsurgical changes in the right skull. Soft tissues: Unremarkable. Sinuses: No acute sinusitis. Mastoid air cells: Partial right mastoid effusion. IMPRESSION: 1. No acute intracranial abnormality. Electronically signed by: Mauricio Woodall MD 11/23/24 23:00 PM Chest X-Ray 11/23/24 20:35 Exam(s): XR CXR 1 VIEW EXAM: XR Chest, 1 View CLINICAL HISTORY: Sepsis. TECHNIQUE: Frontal view of the chest. COMPARISON: 10/11/2024. FINDINGS: Heart is mildly enlarged. Hypoventilation with bibasilar atelectasis. No CHF. No definite focal infiltrate. No pleural effusion or pneumothorax. Bones are unchanged. IMPRESSION: Hypoventilation with bibasilar atelectasis. Otherwise no change. Electronically signed by: Jian Cross M.D. 11/23/24 23:19 PM Pending Results Patient Have Any Pending Studies at Discharge: Yes (urine culture, blood culture ) Discharge Instructions Given to Patient (Per Discharging Provider) Ms. Chanel, Anselmo were hospitalized after having worsening confusion at home. This was concerned to be from either from a urinary tract infection or low sodium. You will be continued on oral antibiotics to treat the possible infection. For your low sodium - it is important that you are not drinking too much plain water. Mixing in gatorade, propel, or other drinks with electrolytes will be helpful. In total, should have no more than 1800 mL of plain water a day. Please take the full course of antibiotics even if you start to feel better. I have notified the ambulatory case management coordinator, Olivia, about your recent life changes. Take care! No changes to home meds. Supervising Physician Co-Signing Physician Notes KASSIE Supervision Note: I did not personally see or examine the patient today, but I verified all cisneros points of KASSIE Justin's assessment and plan with the following exceptions/additions: None Total Time Total Time Spent Total Time Spent (In Minutes): Time spent day of discharge 35 minutes including direct patient care, medication reconciliation, documentation, review of labs and images, and coordination of care. Coding Level of Care Code 81331 INP/OBS DISCH >30 MIN Diagnoses Acute confusion R41.0 Hypothyroidism E03.9 Urinary tract infection N39.0 Hyponatremia E87.1
[2024-11-24 11:11] VITALS: BP 125/84
--- NOTE | 2024-11-24 14:33 | Electrocardiogram Report ---
Test Reason : Blood Pressure : */* mmHG Vent. Rate : 67 BPM Atrial Rate : 67 BPM P-R Int : 192 ms QRS Dur : 70 ms QT Int : 402 ms P-R-T Axes : -20 -7 -12 degrees QTcB Int : 424 ms Normal sinus rhythm Nonspecific T wave abnormality Abnormal ECG When compared with ECG of 11-Oct-2024 18:55, T wave inversion now evident in Inferior leads Confirmed by Julio César Salazar ([id number]) on 11/24/2024 2:33:26 PM Referred By: REFERRED SELF Confirmed By: Julio César Salazar
--- NOTE | 2024-11-24 14:51 | Electrocardiogram Report ---
Test Reason : Blood Pressure : */* mmHG Vent. Rate : 71 BPM Atrial Rate : 71 BPM P-R Int : 184 ms QRS Dur : 78 ms QT Int : 410 ms P-R-T Axes : 53 27 64 degrees QTcB Int : 445 ms Normal sinus rhythm Normal ECG When compared with ECG of 11-Oct-2024 18:55, No significant change was found Confirmed by Julio César Salazar ([id number]) on 11/24/2024 2:51:20 PM Referred By: REFERRED SELF Confirmed By: Julio César Salazar
[2024-11-24] MEDS ORDERED: cefTRIAXone SODIUM 2,000 MG/50 ML BAG IV SCH (23:55)
== END 2024-11-24 12:56 | disposition home or self-care (01) ==
LOC: ED 20:10 → 3N 20:10 → SUATTDRO 11-24 00:39 → 3N 11-24 01:54